=== PATIENT | male | born 1965 | race African-American/Black ===

== ENCOUNTER → 2020-05-27 | Outpatient (CLI) | payer OTHER ==
[~2020-05-27] MED LIST: ACET-168 PO; ALBU17AE3 INH; ALBU8.5H2 IH; ALBU8.5H2 INH; AML5T PO; AMLO-250 PO; AMLO-251 PO; AMLO10TA PO; AMLO10TA82 PO; APIX5TAB PO; ARIP10TA17 PO; ARPZ10T PO; ASP325T PO; ASP81CT PO; ASPI-1238 PO; ATOR10TA66 PO; ATOR20TA66 PO; ATOR40TA70 PO; BENZ1TAB PO; BNZ20T PO; BNZ40T PO; BNZT1T PO; BRIM5DRO12 OU; CARV6.252; CCLB10TRX PO; CETI10TA17 PO; CLON0.5T3; CLON1TAB69 PO; CYCL10TA9 PO; DCCL10CRX PO; DIVA-74 PO; DIVA250T12 PO; DIVA250T2 PO; DIVA250T4 PO; DOXY100C2 PO; DVL250TEC1 PO; DXCC100CRX PO; ESCI20TA PO; ESCI20TA2 PO; ESOM20CA PO; ETD400T PO; ETOD400T PO; FLUT16SP22; FURO20TA4 PO; GABA-488 PO; GABA300C PO; GABA600T2 PO; GBPN300C PO; GFCD10B PO; GLIP5TAB26; HCT25T PO; HYDR-2890 PO; HYDR-34 PO; HYDR-3454 PO; HYDR-3584 PO; HYDR-3720 PO; HYDR-757 PO; HYDR118S10 PO; HYDR1TAB PO; INSU100I14 SC; INSU100I14 SQ; INSU100I29 SQ; INSU100V16 SC; INSU100V5 SC; INSU100V5 SQ; LEVO750T24 PO; LINA5TAB PO; LISI40TA PO; LORA0.5T PO; LORA1TAB PO; MAGN400T6 PO; METF500T4 PO; METH-53 PO; METO100T5 PO; MTP100TCR PO; NEXIUM 20MG PO; NF-ESOM40C PO; POTA10TA36 PO; PRD20T PO; PREG75CA PO; PRV20T PO; RT-ALBUINH INH; SERT50TA9 PO; SLF500T PO; SULF1TAB35 PO; SULF1TAB38 PO; TPR25T PO; TRAM50TA2 PO; TRAZ150T42 PO; TRM50T PO; TRM50TRX; TRZ50T; UNIVASC; WRF10T; [UNRECOGNIZED DRUG - CODE]
--- NOTE | 2020-05-27 11:34 | Diagnostic Imaging Report ---
PROCEDURE: CT abdomen and pelvis without contrast. TECHNIQUE: Multiple contiguous axial images were obtained through the abdomen and pelvis without the use of intravenous contrast. Auto Exposure Controls were utilized during the CT exam to meet ALARA standards for radiation dose reduction. INDICATION: IVC filter placement. COMPARISON: 05/17/2009. FINDINGS: The lung bases are clear. The liver and gallbladder are unremarkable. No biliary ductal dilatation is seen. The pancreas and spleen are unremarkable. No adrenal mass is detected. The kidneys are without calculus or hydronephrosis. The aorta is nonaneurysmal. There is a filter within the inferior vena cava which appears to be appropriately located below the level of the renal veins. The small and large bowel loops are of normal caliber. There is no obstruction. There is no free fluid. The bladder and prostate are unremarkable. No abdominal or pelvic lymphadenopathy is seen. The bony structures are nonacute. IMPRESSION: Unremarkable noncontrast CT of the abdomen and pelvis. The IVC filter appears to be in an appropriate location. Dictated by: Dictated on workstation # [id number]
== END ==
LOC: RAD 11:15
PROVIDERS: ATTEND Chiropractor
DX: Z45.89 Encounter for adjustment and management of other implanted devices (principal)
CPT/HCPCS: 74176

== ENCOUNTER → 2020-12-28 | Outpatient (CLI) | payer MEDICARE, MEDICAID ==
[~2020-12-28] MED LIST changes: -LISI40TA PO; +LISI40TA9 PO; +SERT-413 PO
--- NOTE | 2020-12-28 14:06 | Diagnostic Imaging Report ---
PROCEDURE: US Renal Bilateral. TECHNIQUE: Multiple real-time grayscale images were obtained over the kidneys in various projections bilaterally. INDICATION: Kidney disease. Right kidney measures 10.9 x 5.6 x 4.5 cm and the left kidney measures 10.2 x 6.5 x 6.6 cm. Cortical thickness and echogenicity is normal bilaterally. No calculi are seen. There is no hydronephrosis. Bladder demonstrates bilateral ureteral jets. IMPRESSION: Unremarkable renal ultrasound. Dictated by: Dictated on workstation # [id number]
== END ==
LOC: RAD 13:00
PROVIDERS: ATTEND Nurse Practitioner Family
DX: N28.9 Disorder of kidney and ureter, unspecified (principal)
CPT/HCPCS: 76770

== ENCOUNTER 2021-02-22 05:40 | Outpatient (RCR) | payer MEDICARE, MEDICAID ==
[~2021-02-22] VITALS: Ht 182.9 cm; Wt 172.4 kg
[~2021-02-22 05:40] MED LIST changes: -ARIP10TA17 PO; +ARIP10TA55 PO
[2021-02-22] MEDS ORDERED: TMSL.4C PO (14:15)
[2021-02-22] MEDS ORDERED: DULO40CA2 PO (14:15)
[2021-02-22] MEDS ORDERED: BRIM5DRO2 OP (14:15)
[2021-02-22] MEDS ORDERED: TIOT4MIS5 IH (14:15)
[2021-02-22] MEDS ORDERED: FURO20TA4 PO (14:15)
[2021-02-22] MEDS ORDERED: METF-399 PO (14:15)
[2021-02-22] MEDS ORDERED: INSU200I SQ (14:15)
[2021-02-22] MEDS ORDERED: GABA800T10 PO (14:15)
[2021-02-22] MEDS ORDERED: FLUT1AER IH (14:15)
[2021-02-22] MEDS ORDERED: POTA10TA36 PO (14:15)
[2021-02-22] MEDS ORDERED: ROSU40TA23 PO (14:15)
[2021-02-22] MEDS ORDERED: ASPI-999 PO (14:15)
[2021-02-22] MEDS ORDERED: DULA1.5P2 SQ (14:15)
== END 2021-02-22 16:23 | disposition home or self-care (01) ==
LOC: PREOP 05:40
PROVIDERS: ATTEND Surgery
DX: Z01.818 Encounter for other preprocedural examination (principal)

== ENCOUNTER 2021-02-27 17:17 | Emergency (ER) | payer MEDICARE, MEDICAID ==
[~2021-02-27] VITALS: Ht 182.8 cm; Wt 172.0 kg
[~2021-02-27 17:17] MED LIST changes: +ASPI-999 PO; +BRIM5DRO2 OP; +DULA1.5P2 SQ; +DULO40CA2 PO; +FLUT1AER IH; +GABA800T10 PO; +INSU200I SQ; +METF-399 PO; +ROSU40TA23 PO; +TIOT4MIS5 IH; +TMSL.4C PO
[2021-02-27 17:37] LABS: BASOPHILS % (AUTO) 0 % (0-10); EOSINOPHILS % (AUTO) 0 % (0-10); HEMATOCRIT 31 % (40-54); LYMPHOCYTES # (AUTO) 0.8 10^3/uL (1.0-4.0); LYMPHOCYTES % (AUTO) 12 % (12-44); MEAN CORPUSCULAR HEMOGLOBIN 26 pg (25-34); MEAN CORPUSCULAR HGB CONC 29 g/dL (32-36); MEAN CORPUSCULAR VOLUME 89 fL (80-99); MEAN PLATELET VOLUME 12.1 fL (9.0-12.2); MONOCYTES # (AUTO) 0.7 10^3/uL (0.0-1.0); MONOCYTES % (AUTO) 11 % (0-12); NEUTROPHILS # (AUTO) 5.1 10^3/uL (1.8-7.8); NEUTROPHILS % (AUTO) 76 % (42-75); PLATELET COUNT 232 10^3/uL (130-400); WHITE BLOOD COUNT 6.7 10^3/uL (4.3-11.0)
[2021-02-27 17:47] LABS: ALBUMIN 3.6 GM/DL (3.2-4.5); POTASSIUM 4.8 MMOL/L (3.6-5.0)
[2021-02-27 17:49] LABS: CALCIUM 9.3 MG/DL (8.5-10.1)
[2021-02-27 17:50] LABS: TOTAL PROTEIN 6.9 GM/DL (6.4-8.2)
[2021-02-27 17:52] LABS: BILIRUBIN,TOTAL 0.2 MG/DL (0.1-1.0)
[2021-02-27 17:54] LABS: CREATININE SERUM 1.67 MG/DL (0.60-1.30)
--- NOTE | 2021-02-27 17:58 | ED General ---
General Chief Complaint: Glucose Problems Stated Complaint: HYPOGLYCEMIA Nursing Triage Note: Pt to ED via EMS for low blood sugar. EMS reports pt was given 40 units of humalog this morning and then did not eat lunch. Pt's blood sugar was 65 per EMS. D10 running upon arrival however pt's IV was pulled out transfering pt. EMS reports pt was given 1mg glucagon at 1634. Source of Information: Patient, EMS Exam Limitations: No Limitations History of Present Illness Date Seen by Provider: Feb 27, 2021 Time Seen by Provider: 17:20 Initial Comments To ER by [facility] from [facility] where he resides with hypoglycemia. Upon fire department arrival his blood sugar was in the 30s or 40s and he was lethargic. correction staff gave 1 mg of intramuscular glucagon. Upon EMS arrival his blood sugar was in the 60s. They initiated IV with D10. He does report shortness of breath Timing/Duration: 1-3 Hours Severity: Moderate Associated Systoms: Denies Symptoms Allergies and Home Medications Allergies Coded Allergies: penicillin V (Unverified Allergy, Unknown, 10/01/08) erythromycin base (Unverified Adverse Reaction, Mild, VOMITING, 03/18/13) Home Medications Amlodipine Besylate 10 Mg Tablet, 10 MG PO DAILY Prescribed by: KERA CHAPMAN on 12/21/15 1233 Apixaban 5 Mg Tablet, 5 MG PO BID, (Reported) Aripiprazole 10 Mg Tablet, 10 MG PO DAILY, (Reported) Aspirin 81 Mg Tab.chew, 81 MG PO DAILY, (Reported) Brimonidine Tartrate 5 Ml Drops, 5 ML OP UD, (Reported) Divalproex Sodium 250 Mg Tablet.dr, 250 MG PO TID, (Reported) Dulaglutide 1.5 Mg/0.5 Ml Pen.injctr, 1.5 MG SQ DAILY, (Reported) Duloxetine HCl 40 Mg Capsule.dr, 40 MG PO DAILY, (Reported) Fluticasone/Vilanterol 1 Each Blst.w.dev, 1 EACH IH DAILY, (Reported) Furosemide 20 Mg Tablet, 20 MG PO DAILY, (Reported) Gabapentin 800 Mg Tablet, 800 MG PO BID, (Reported) Insulin Detemir 100 Unit/1 Ml Insuln.pen, 30 UNITS SQ BID, (Reported) Insulin Lispro 200 Unit/1 Ml Insuln.pen, 200 UNIT SQ UD, (Reported) Lisinopril 40 Mg Tablet, 40 MG PO DAILY Prescribed by: KERA CHAPMAN on 12/21/15 1233 Metformin HCl 1,000 Mg Tablet, 1,000 MG PO DAILY, (Reported) Metoprolol Succinate 100 Mg Tab.er.24h, 100 MG PO DAILY, (Reported) Potassium Chloride 10 Meq Tab.er.prt, 10 MEQ PO DAILY, (Reported) Rosuvastatin Calcium 40 Mg Tablet, 40 MG PO DAILY, (Reported) Tamsulosin HCl 0.4 Mg Cap, 0.4 MG PO DAILY, (Reported) Tiotropium [place] 4 Gm Mist.inhal, 2 PUFF IH DAILY, (Reported) Patient Home Medication List Home Medication List Reviewed: Yes Review of Systems Review of Systems Constitutional: see HPI EENTM: see HPI Respiratory: no symptoms reported Cardiovascular: no symptoms reported Genitourinary: no symptoms reported Musculoskeletal: no symptoms reported Skin: no symptoms reported Psychiatric/Neurological: No Symptoms Reported Hematologic/Lymphatic: No Symptoms Reported Immunological/Allergic: no symptoms reported Past Sqhqvuj-Vrqgyp-Sbjdtt Hx Seasonal Allergies Seasonal Allergies: No Past Medical History Surgeries: Yes Cardiac, Dialysis, Orthopedic, Renal, Vascular Surgery Respiratory: Yes (COMMUNITY ACQUIRED PNEUMONIA) Asthma, Pneumonia Currently Using CPAP: No Currently Using BIPAP: No Cardiac: Yes (PAD) Coronary Artery Disease, Deep Vein Thrombosis, Heart Attack, High Cholesterol, Hypertension, Irregular Heartbeat, Peripheral Vascular Neurological: Yes (BRAIN INJURY CAUSES EMOTIONS TO CHANGE . LEFT SIDE WEAKNESS) Concussion, Headaches /Migraines, Neuropathy, Seizure Disorder, Stroke Reproductive Disorders: No Sexually Transmitted Disease: No HIV/AIDS: No Kidney Stones, Renal Failure Gastrointestinal: Yes Colitis, Gastroesophageal Reflux, Diverticulosis, Polyps, Hiatal Hernia Musculoskeletal: Yes (WEAKNESS IN LEGS FROM STROKE ) Arthritis, Fibromyalgia, Rheumatoid Arthritis, Chronic Back Pain Endocrine: Yes Diabetes, Insulin dep Glaucoma Loss of Vision: Bilateral Hearing Impairment: Denies Cancer: No Psychosocial: Yes Sleep Difficulties, Bipolar, Depression Integumentary: No Blood Disorders: Yes (ANEMIA, BLOOD CLOTS ) Family Medical History Cardiovascular disease 19 MOTHER G8 BROTHER Colon cancer 19 MOTHER Completed stroke 19 FATHER Dementia 19 FATHER Diabetes mellitus 19 MOTHER FHx: macular degeneration 19 FATHER Myocardial infarction 19 MOTHER Heart Disease, Diabetes, Hypertension Physical Exam Vital Signs Vital Signs - First Documented 02/27/21 17:18 Temp 35.8 Pulse 58 Resp 18 B/P (MAP) 123/83 (96) Pulse Ox 98 O2 Delivery Room Air Capillary Refill : Less Than 3 Seconds Height, Weight, BMI Height: 6'2" Weight: 250lbs. 0.0oz. 113.015025fw; 51.00 BMI Method:Estimated General Appearance: No Apparent Distress, WD/WN, Obese Eyes: Bilateral Eye Normal Inspection, Bilateral Eye PERRL, Bilateral Eye EOMI Neck: Full Range of Motion, Normal Inspection Respiratory: No Accessory Muscle Use, No Respiratory Distress Cardiovascular: Regular Rate, Rhythm, Normal Peripheral Pulses Gastrointestinal: Non Tender, Soft Extremity: Normal Capillary Refill, Normal Inspection Neurologic/Psychiatric: Alert, Oriented x3 Skin: Normal Color, Warm/Dry Progress/Results/Core Measures Suspected Sepsis SIRS Temperature: Pulse: 58 Respiratory Rate: 18 Laboratory Tests 02/27/21 17:25: White Blood Count 6.7 Blood Pressure 123 /83 Mean: 96 Laboratory Tests 02/27/21 17:25: Creatinine 1.67H, Platelet Count 232, Total Bilirubin 0.2 Results/Orders Lab Results Laboratory Tests Test 02/27/21 17:22 02/27/21 17:25 02/27/21 18:38 Range/Units Glucometer 78 106 70-110 MG/DL White Blood Count 6.7 4.3-11.0 10^3/uL Red Blood Count 3.49 L 4.30-5.52 10^6/uL Hemoglobin 9.0 L 13.3-17.7 g/dL Hematocrit 31 L 40-54 % Mean Corpuscular Volume 89 80-99 fL Mean Corpuscular Hemoglobin 26 25-34 pg Mean Corpuscular Hemoglobin Concent 29 L 32-36 g/dL Red Cell Distribution Width 17.1 H 10.0-14.5 % Platelet Count 232 130-400 10^3/uL Mean Platelet Volume 12.1 9.0-12.2 fL Immature Granulocyte % (Auto) 1 % Neutrophils (%) (Auto) 76 H 42-75 % Lymphocytes (%) (Auto) 12 12-44 % Monocytes (%) (Auto) 11 0-12 % Eosinophils (%) (Auto) 0 0-10 % Basophils (%) (Auto) 0 0-10 % Neutrophils # (Auto) 5.1 1.8-7.8 10^3/uL Lymphocytes # (Auto) 0.8 L 1.0-4.0 10^3/uL Monocytes # (Auto) 0.7 0.0-1.0 10^3/uL Eosinophils # (Auto) 0.0 0.0-0.3 10^3/uL Basophils # (Auto) 0.0 0.0-0.1 10^3/uL Immature Granulocyte # (Auto) 0.1 0.0-0.1 10^3/uL Sodium Level 143 135-145 MMOL/L Potassium Level 4.8 3.6-5.0 MMOL/L Chloride Level 113 H 98-107 MMOL/L Carbon Dioxide Level 18 L 21-32 MMOL/L Anion Gap 12 5-14 MMOL/L Blood Urea Nitrogen 23 H 7-18 MG/DL Creatinine 1.67 H 0.60-1.30 MG/DL Estimat Glomerular Filtration Rate 52 BUN/Creatinine Ratio 14 Glucose Level 81 70-105 MG/DL Calcium Level 9.3 8.5-10.1 MG/DL Corrected Calcium 9.6 8.5-10.1 MG/DL Total Bilirubin 0.2 0.1-1.0 MG/DL Aspartate Amino Transf (AST/SGOT) 13 5-34 U/L Alanine Aminotransferase (ALT/SGPT) 13 0-55 U/L Alkaline Phosphatase 43 40-136 U/L B-Type Natriuretic Peptide 274.9 H <100.0 PG/ML Total Protein 6.9 6.4-8.2 GM/DL Albumin 3.6 3.2-4.5 GM/DL SARS-CoV-2 RNA (RT-PCR) Not Detected Not Detecte My Orders Orders - MIO KERN PRESSURE SUPERVISOR Cbc With Automated Diff (02/27/21 17:25) Comprehensive Metabolic Panel (02/27/21 17:25) Ua Culture If Indicated (02/27/21 17:25) Chest 1 View, Ap/Pa Only (02/27/21 17:25) Covid 19 Inhouse Test (02/27/21 17:25) BNP (02/27/21 17:25) Ed Iv/Invasive Line Start (02/27/21 17:25) Cho 75g/M 0snack (21-2400 Shivam) (02/27/21 Dinner) Accucheck Stat ONCE (02/27/21 18:32) Furosemide Injection (Lasix Injection) (02/27/21 18:45) Medications Given in ED Current Medications Medications Dose Ordered Sig/Shelbi Route Start Time Stop Time Status Last Admin Dose Admin Furosemide 40 mg ONCE ONCE IVP 02/27/21 18:45 02/27/21 18:46 DC 02/27/21 19:20 40 MG Vital Signs/I&O 02/27/21 17:18 Temp 35.8 Pulse 58 Resp 18 B/P (MAP) 123/83 (96) Pulse Ox 98 O2 Delivery Room Air Capillary Refill : Less Than 3 Seconds Blood Pressure Mean: 96 Diagnostic Imaging Diagonstic Imaging: Xray Comments NAME: [facility]A [facility] REC#: [id number] PT STATUS: REG ER : 12/14/2000 PHYSICIAN: MIO KERN APRN ADMIT DATE: 02/27/21/ER Draft Date of Exam:02/27/21 KNEE, RIGHT, 3 VIEWS INDICATION: Knee pain. EXAMINATION: Right knee at 4:48 p.m. Three views were obtained. COMPARISON: There is no prior study available for comparison. There is a well-circumscribed lucency extending through the superolateral aspect of the patella. I suspect that this is a developmental variant, the so-called bipartite patella and not a fracture. However if the patient has point tenderness in this area, then either CT or preferably MRI would be recommended for further evaluation. No other fracture or acute bony abnormality is noted. The knee joint is well maintained. The soft tissues are generally unremarkable. There may be a small joint effusion present. IMPRESSION: 1. 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 Recommendations as above. 2. There is no acute bony abnormality noted otherwise. Dictated on workstation # [id number] Dict: 02/27/21 1650 Trans: 02/27/21 1725 [facility] [id number] Interpreted by: PAULIE MARTIN MD Electronically signed by: Departure Impression Primary Impression: Leukemia, acute Disposition: ADMITTED INPATIENT Condition: Stable Departure-Patient Inst. Decision time for Depature: 19:48 Referrals: RACHEL LONGORIA DO (PCP/Family) Primary Care Physician Patient Instructions: NO INSTRUCTIONS GIVEN MIO KERN APRN Feb 27, 2021 17:58
--- NOTE | 2021-02-27 18:14 | Diagnostic Imaging Report ---
HISTORY: Shortness of air. COMPARISON: 12/22/2015. TECHNIQUE: Frontal view of the chest. FINDINGS: Lung volumes are low. There is cardiomegaly with central vascular congestion and interstitial edema. There is no pleural effusion or pneumothorax. There appears to be airspace opacity at the apices bilaterally. IMPRESSION: 1. Cardiomegaly with diffuse interstitial edema, may be accentuated by the low lung volumes. 2. Biapical airspace opacities, may be due to artifact from overlapping structures. If the patient is able, consider follow up two view of the chest with a lordotic frontal view. Dictated by: Dictated on workstation # [id number]
[2021-02-27] MEDS ORDERED: FUROSEMIDE 40 MG/4 ML INJ (LASIX) IVP ONE (18:45)
[2021-02-27 19:54] LABS: BILIRUBIN,URINE NEGATIVE (NEGATIVE); CLARITY,URINE CLEAR; COLOR,URINE YELLOW; GLUCOSE, URINE (UA) NEGATIVE (NEGATIVE); KETONES,URINE NEGATIVE (NEGATIVE); LEUKOCYTE ESTERASE ,URINE NEGATIVE (NEGATIVE); NITRITE,URINE NEGATIVE (NEGATIVE); PH,URINE 5.5 (5-9); PROTEIN,URINE 2+ (NEGATIVE)
[2021-02-27 20:17] LABS: BACTERIA,URINE TRACE /HPF; WBC,URINE 0-2 /HPF
[2021-02-27 20:18] LABS: AMORPHOUS SEDIMENT,UR MOD AMOR URATES /LPF
[2021-02-27 20:33] VITALS: BP 177/97
== END 2021-02-27 20:30 | disposition other institution (70) ==
LOC: EDUNIT# 17:17 → ER 17:18
DX: C95.00 Acute leukemia of unspecified cell type not having achieved remission (principal); I51.7 Cardiomegaly; J81.1 Chronic pulmonary edema; R91.8 Other nonspecific abnormal finding of lung field
CPT/HCPCS: 36415; 71045; 80053; 81000; 82947; 83880; 85025; 87636; 96374

== ENCOUNTER 2021-03-02 06:52 | Day surgery (SDC) | payer MEDICARE, MEDICAID ==
--- NOTE | 2021-03-01 08:23 | Progress Note-Pre Operative ---
Pre-Operative Progress Note H&P Reviewed The H&P was reviewed, patient examined and no changes noted. Time Seen by Provider: 08:10 Date H&P Reviewed: Mar 01, 2021 Time H&P Reviewed: 08:10 Pre-Operative Diagnosis: rectal bleed, anemia LARISA COE DO Mar 01, 2021 08:23
[2021-03-02] VITALS (8 sets, daily range): BP systolic 111–162; BP diastolic 59–79
[~2021-03-02] VITALS: Ht 182.9 cm; Wt 172.0 kg
[~2021-03-02 06:52] MED LIST changes: +HURRICAINE EXT TUBE (BENZOCAINE) XX PRN; +LACTATED RINGERS 1,000 ML IV STA
[2021-03-02] MEDS ORDERED: LACTATED RINGERS 1,000 ML IV ONE (07:11)
[2021-03-02] MEDS ORDERED: PROPOFOL INJECTION 50 ML IV ONE (07:49)
[2021-03-02] MEDS ORDERED: KETAMINE SYRINGE 50 MG/5 ML SYRINGE ONE (08:12)
[2021-03-02] MEDS ORDERED: MIDAZOLAM 2 MG/2 ML (VERSED) VIAL ONE (08:12)
--- NOTE | 2021-03-02 10:39 | Progress Note-Post Operative ---
Post-Operative Progess Note Surgeon (s)/Personal Coach (s) Surgeon LARISA COE DO Personal Coach: none Pre-Operative Diagnosis rectal bleed, anemia Post-Operative Diagnosis Gastritis Hiatal Hernia Esophagitis Inflammatory Gastric Polyp Polyps diverticula internal hemorrhoids Procedure & Operative Findings Date of Procedure 03/02/21 Procedure Performed/Findings 1) EGD with bx 2) EGD with Snare polypectomy with cautery 3) Colonoscopy with snare polypectomy PROCEDURE NOTE: After informed consent was obtained, the patient was brought to the endoscopy suite, placed in bed in left lateral decubitus position. He was administered IV sedation by the BLADDER CHANGER who then monitored vitals the entire time, heart rate, blood pressure and pulse ox and the scope was inserted down the mouth through the esophagus into the stomach. On the way down, noted some mild esophagitis, took a picture, pushed into the stomach, pushed past the antrum into the duodenum. Duodenum looked mildly inflamed. Pulled back and did a biopsy of antrum, then retroflexed the scope, saw a small hiatal hernia and multiple large gastric polyps. Took a picture of Hiatal hernia and polyps an then pulled the scope into the GE junction, took another picture of the esophagitis and then did a biopsy of the GE junction. Pushed the scope back into the stomach and did a snare polypectomy to remove one large polyp for pathology. It was so big I had to place a Olivo net down, grab the polyp and then remove scope and polyp. I then placed scope back down and into stomach in order to suction all the air out of the stomach. At this point pulled the scope up the esophagus and out the mouth. Switched camera, switched gloves, went down below, started the colonoscopy. Pushed all the way into about 160 cm to get all the way to cecum, took a picture of the appendiceal orifice, noted the ileocecal valve and then slowly withdrew the scope, insufflating to look circumferentially at the montoya starting in the cecum and up the ascending colon. Found a polyp in the ascending colon and did a snare polypectomy; it was large and would not suction up the scope. I grabbed it with scope and continued up to the hepatic flexure and into the transverse colon where I saw two more large polyps. I then removed both of these with snare and then grabbed all three polyps with the Olivo net. I continued slowly out to splenic flexure, into the descending colon (where I saw another small polyp - elected to leave and will be back in a year to do repeat colonoscopy), down into the sigmoid and finally into the rectum and in the rectal vault, saw some minimal internal hemorrhoids. He had a lot of liquid fecal material and unable to suction all of it out; again another reason to repeat colonoscopy in a year. The patient tolerated the procedure and he recovered in the endoscopy suite. Anesthesia Type IV sedation by Anesthesia Estimated Blood Loss Estimated blood loss (mL): scant Specimens/Packing Specimens Removed antral bx GE jxn bx Gastric polyp Asc colon polyp transverse colon polyp LARISA COE DO Mar 02, 2021 10:39
--- NOTE | 2021-03-02 10:41 | Endoscopy Discharge Instruct ---
Endo Procedure/Findings Findings 1.: Hiatal Hernia, Gastritis 2.: Other Findings (Gastric Polyp and Esophagitis) 3.: Polyp 4.: Diverticulosis, Internal Hemorrhoids Discharge Instructions - Activity: You might feel a little sleepy until tomorrow. This is due to the medicine you received to relax you. Until tomorrow, you should: NOT drive a car, operate machinery or power tools. NOT drink any alcoholic beverages. NOT make any important decisions or sign importortant papers. Do not return to work until tomorrow, unless otherwise instructed. Resume previous activities tomorrow. Diet: Start by taking liquids. If you tolerate liquids, advance to solid food. 1.: EGD in 3 years 2.: Colonoscopy in 1 year Notify Physician - If you experience excessive bleeding, unusual abdominal pain, fever, or chest pain, contact your doctor immediately. LARISA COE DO Mar 02, 2021 10:41
--- NOTE | 2021-03-02 10:59 | Anesthesia-General Post-Op ---
MAC Patient Condition Mental Status/LOC: Same as Preop Cardiovascular: Satisfactory Nausea/Vomiting: Absent Respiratory: Satisfactory Pain: Controlled Complications: Absent Post Op Complications Complications None Follow Up Care/Instructions Patient Instructions None needed. Anesthesiology Discharge Order Discharge Order Patient is doing well, no complaints, stable vital signs, no apparent adverse anesthesia problems. YONG THAYER DO Mar 02, 2021 10:59
== END 2021-03-02 12:30 ==
LOC: ENDO 06:52
PROVIDERS: ATTEND Surgery
DX: K29.50 Unspecified chronic gastritis without bleeding (principal); D12.2 Benign neoplasm of ascending colon; D12.3 Benign neoplasm of transverse colon; K62.5 Hemorrhage of anus and rectum; K31.7 Polyp of stomach and duodenum; K44.9 Diaphragmatic hernia without obstruction or gangrene; K20.90 Esophagitis, unspecified without bleeding; K57.30 Diverticulosis of large intestine without perforation or abscess without bleeding; K64.8 Other hemorrhoids; E78.00 Pure hypercholesterolemia, unspecified; I11.0 Hypertensive heart disease with heart failure; I50.9 Heart failure, unspecified; D50.9 Iron deficiency anemia, unspecified; I25.2 Old myocardial infarction; I25.10 Atherosclerotic heart disease of native coronary artery without angina pectoris; M79.7 Fibromyalgia; M10.9 Gout, unspecified; J45.909 Unspecified asthma, uncomplicated; E11.40 Type 2 diabetes mellitus with diabetic neuropathy, unspecified; E66.01 Morbid (severe) obesity due to excess calories; F17.210 Nicotine dependence, cigarettes, uncomplicated; F31.9 Bipolar disorder, unspecified; Z79.82 Long term (current) use of aspirin; Z68.43 Body mass index [BMI] 50.0-59.9, adult; Z79.4 Long term (current) use of insulin

== ENCOUNTER → 2021-03-17 | Outpatient (CLI) | payer MEDICARE, MEDICAID ==
[~2021-03-17] MED LIST changes: -HURRICAINE EXT TUBE (BENZOCAINE) XX PRN; -LACTATED RINGERS 1,000 ML IV STA
== END ==
LOC: CARD 08:57
PROVIDERS: ATTEND Nurse Practitioner Family
DX: I11.9 Hypertensive heart disease without heart failure (principal)
CPT/HCPCS: 93306

== ENCOUNTER → 2021-05-17 | Outpatient (CLI) | payer MEDICARE, MEDICAID ==
[2021-05-17 15:55] LABS: ABSOLUTE RETIC # 57 10e9/uL (24-90); BASOPHILS % (AUTO) 1 % (0-10); EOSINOPHILS # (AUTO) 0.1 10^3/uL (0.0-0.3); EOSINOPHILS % (AUTO) 2 % (0-10); HEMATOCRIT 29 % (40-54); HEMOGLOBIN 8.3 g/dL (13.3-17.7); LYMPHOCYTES # (AUTO) 1.1 10^3/uL (1.0-4.0); LYMPHOCYTES % (AUTO) 17 % (12-44); MEAN CORPUSCULAR HEMOGLOBIN 24 pg (25-34); MEAN CORPUSCULAR HGB CONC 29 g/dL (32-36); MEAN CORPUSCULAR VOLUME 84 fL (80-99); MEAN PLATELET VOLUME 12.8 fL (9.0-12.2); MONOCYTES # (AUTO) 0.8 10^3/uL (0.0-1.0); MONOCYTES % (AUTO) 12 % (0-12); NEUTROPHILS # (AUTO) 4.3 10^3/uL (1.8-7.8); NEUTROPHILS % (AUTO) 68 % (42-75); PLATELET COUNT 205 10^3/uL (130-400); RETICULOCYTE % 1.63 % (0.50-2.40); WHITE BLOOD COUNT 6.4 10^3/uL (4.3-11.0)
[2021-05-17 16:34] LABS: EOSINOPHILS % (MANUAL) 3 %; LYMPHOCYTES % (MANUAL) 25 %; MONOCYTES % (MANUAL) 10 %; NEUTROPHILS % (MANUAL) 62 %
[2021-05-17 16:35] LABS: ACANTHOCYTES SLIGHT; BURR CELLS MODERATE
== END ==
LOC: LABNPT 15:45
PROVIDERS: ATTEND Internal Medicine
DX: Z01.89 Encounter for other specified special examinations (principal)
CPT/HCPCS: 85007; 85027; 85045; 85055

== ENCOUNTER 2021-09-16 19:25 | Inpatient (IN) | payer MEDICARE, MEDICAID ==
[~2021-09-16] VITALS: Ht 187 cm; Wt 169.5 kg
[~2021-09-16 19:25] MED LIST changes: -BRIM5DRO2 OP; +BRIM5DRO2 OU; +POTA10TA37 PO
[2021-09-16 19:43] LABS: ABG BASE EXCESS -0.8 MMOL/L (-2.5-2.5); ABG OXYGEN SATURATION 96 % (94-100); ABG PCO2 50 MMHG (35-45); ABG PO2 79 MMHG (79-93); ABG TCO2 26.7 MMOL/L (21.0-31.0)
[2021-09-16 19:44] LABS: ABG PH 7.31 (7.37-7.43); ALLENS TEST POS
--- NOTE | 2021-09-16 19:44 | ED Respiratory ---
General Stated Complaint: AMS Source: patient, EMS Exam Limitations: no limitations History of Present Illness Date Seen by Provider: Sep 16, 2021 Time Seen by Provider: 19:23 Initial Comments Patient presents ER by EMS from [facility] with chief complaint of shortness of air and decreased mental status starting today. No fevers or chills productive cough. He does not use oxygen at baseline but has a history of COPD. They gave him a breathing treatment today by EMS on route which he states not seem to help much. Patient has not had a breathing treatment the past couple days he just has them as needed. He denies having any pain. He did lose control of his bowels. No syncope or falls. He did get an iron infusion for anemia today. He says for the past couple days been having diarrhea. No cough or sore throat. EMS remarks that a did not hear any wheezing just mostly upper respiratory sounds. Apparently staff told EMS the blood sugar was 30 prior to dinner tonight so they gave him some orange juice and got his blood sugar up over 300. He is a type II diabetic on insulin. Patient is on Eliquis. Allergies and Home Medications Allergies Coded Allergies: penicillin V (Unverified Allergy, Unknown, 10/01/08) erythromycin base (Unverified Adverse Reaction, Mild, VOMITING, 03/18/13) Patient Home Medication List Home Medication List Reviewed: Yes Amlodipine Besylate (Amlodipine Besylate) 10 Mg Tablet, 10 MG PO DAILY Prescribed by: KERA CHAPMAN on 12/21/15 1233 Apixaban (Eliquis) 5 Mg Tablet, 5 MG PO BID, (Reported) Entered as Reported by: JIM GRADY on 12/03/15 1005 Aripiprazole (Aripiprazole) 10 Mg Tablet, 10 MG PO DAILY, (Reported) Entered as Reported by: JIM GRDAY on 12/03/15 1005 Aspirin (Aspirin) 81 Mg Tab.chew, 81 MG PO DAILY, (Reported) Entered as Reported by: KERA FELIPE on 02/22/21 1415 Brimonidine Tartrate (Alphagan P) 5 Ml Drops, 5 ML OP UD, (Reported) Entered as Reported by: KERA FELIPE on 02/22/21 1415 Divalproex Sodium (Divalproex Sodium) 250 Mg Tablet.dr, 250 MG PO TID, (Reported) Entered as Reported by: JIM GRADY on 12/03/15 100 Dulaglutide (Trulicity) 1.5 Mg/0.5 Ml Pen.injctr, 1.5 MG SQ DAILY, (Reported) Entered as Reported by: KERA FELIPE on 02/22/21 141 Duloxetine HCl (Duloxetine HCl) 40 Mg Capsule.dr, 40 MG PO DAILY, (Reported) Entered as Reported by: KERA FELIPE on 02/22/21 141 Fluticasone/Vilanterol (Breo Ellipta 100-25 Mcg INH) 1 Each Blst.w.dev, 1 EACH IH DAILY, (Reported) Entered as Reported by: KERA FELIPE on 02/22/211414 Furosemide (Furosemide) 20 Mg Tablet, 20 MG PO DAILY, (Reported) Entered as Reported by: KERA FELIPE on 02/22/21 141 Gabapentin (Gabapentin) 800 Mg Tablet, 800 MG PO BID, (Reported) Entered as Reported by: KERA FELIPE on 02/22/211414 Insulin Detemir (Levemir Flextouch) 100 Unit/1 Ml Insuln.pen, 30 UNITS SQ BID, (Reported) Entered as Reported by: JIM GRADY on 12/03/15 100 Insulin Lispro (Humalog Kwikpen) 200 Unit/1 Ml Insuln.pen, 200 UNIT SQ UD, (Reported) Entered as Reported by: KERA FELIPE on 02/22/21 141 Lisinopril (Lisinopril) 40 Mg Tablet, 40 MG PO DAILY Prescribed by: KERA CHAPMAN on 12/21/15 1233 Metformin HCl (Metformin HCl) 1,000 Mg Tablet, 1,000 MG PO DAILY, (Reported) Entered as Reported by: KERA FELIPE on 02/22/21 141 Metoprolol Succinate (Metoprolol Succinate) 100 Mg Tab.er.24h, 100 MG PO DAILY, (Reported) Entered as Reported by: JIM GRADY on 12/03/15 100 Potassium Chloride (Potassium Chloride) 10 Meq Tab.er.prt, 10 MEQ PO DAILY, (Reported) Entered as Reported by: KERA FELIPE on 02/22/21 141 Rosuvastatin Calcium (Rosuvastatin Calcium) 40 Mg Tablet, 40 MG PO DAILY, (Reported) Entered as Reported by: KERA FELIPE on 02/22/211414 Tamsulosin HCl (Flomax) 0.4 Mg Cap, 0.4 MG PO DAILY, (Reported) Entered as Reported by: KERA FELIPE on 02/22/211414 Tiotropium [place] (Spiriva Respimat 1.25MCG/ACTUATION) 4 Gm Mist.inhal, 2 PUFF IH DAILY, (Reported) Entered as Reported by: KERA FELIPE on 02/22/211414 Review of Systems Review of Systems Constitutional: No chills, No diaphoresis, No fever; malaise, weakness EENTM: No ear discharge, No ear pain Respiratory: No cough; short of breath, wheezing Cardiovascular: No chest pain, No palpitations Gastrointestinal: No abdominal pain, No nausea, No vomiting Genitourinary: No discharge, No dysuria Musculoskeletal: No back pain, No joint pain All Other Systems Reviewed Negative Unless Noted: Yes Past Nuyqldn-Scfclv-Frpeqx Hx Patient Social History Tobacco Use?: No Use of E-Cig and/or Vaping dev: No Substance use?: No Seasonal Allergies Seasonal Allergies: No Past Medical History Surgeries: Yes Cardiac, Dialysis, Orthopedic, Renal, Vascular Surgery Respiratory: Yes (COMMUNITY ACQUIRED PNEUMONIA) Asthma, Pneumonia Currently Using CPAP: No Currently Using BIPAP: No Cardiac: Yes (PAD) Coronary Artery Disease, Deep Vein Thrombosis, Heart Attack, High Cholesterol, Hypertension, Irregular Heartbeat, Peripheral Vascular Neurological: Yes (BRAIN INJURY CAUSES EMOTIONS TO CHANGE . LEFT SIDE WEAKNESS) Concussion, Headaches /Migraines, Neuropathy, Seizure Disorder, Stroke Reproductive Disorders: No Sexually Transmitted Disease: No HIV/AIDS: No Kidney Stones, Renal Failure Gastrointestinal: Yes Colitis, Gastroesophageal Reflux, Diverticulosis, Polyps, Hiatal Hernia Musculoskeletal: Yes (WEAKNESS IN LEGS FROM STROKE ) Arthritis, Fibromyalgia, Rheumatoid Arthritis, Chronic Back Pain Endocrine: Yes Diabetes, Insulin dep Glaucoma Loss of Vision: Bilateral Hearing Impairment: Denies Cancer: No Psychosocial: Yes Sleep Difficulties, Bipolar, Depression Integumentary: No Blood Disorders: Yes (ANEMIA, BLOOD CLOTS ) Family Medical History Cardiovascular disease 19 MOTHER G8 BROTHER Colon cancer 19 MOTHER Completed stroke 19 FATHER Dementia 19 FATHER Diabetes mellitus 19 MOTHER FHx: macular degeneration 19 FATHER Myocardial infarction 19 MOTHER Heart Disease, Diabetes, Hypertension Physical Exam Vital Signs - First Documented 09/16/21 09/16/21 19:27 20:41 Pulse 65 Resp 24 Pulse Ox 99 O2 Delivery Nasal Cannula O2 Flow Rate 5.00 Capillary Refill : Height: 6'2" Weight: 250lbs. 0.0oz. 113.334943cr; 51.41 BMI Method:Estimated General Appearance: moderate distress, obese Eyes: Bilateral Eye Normal Inspection, Bilateral Eye PERRL, Bilateral Eye EOMI HEENT: PERRL/EOMI, normal ENT inspection, TMs normal, pharynx normal Neck: full range of motion, supple, normal inspection Respiratory: respiratory distress (80% on room air. 100% on 4 L by nasal cannula), accessory muscle use, rhonchi, wheezing Cardiovascular: normal peripheral pulses, regular rate, rhythm Gastrointestinal: normal bowel sounds, non tender Neurologic/Psychiatric: alert, normal mood/affect, oriented x 3, other (GCS 14, slightly obtunded. Slow to answer, 2-3 word answers.) Skin: normal color, warm/dry Focused Exam Lactate Level 09/16/21 20:00: Lactic Acid Level 2.05*H Lactic Acid Level Laboratory Tests Test 09/16/21 20:00 Lactic Acid Level 2.05 MMOL/L (0.50-2.00) *H Progress/Results/Core Measures Suspected Sepsis SIRS Temperature: Pulse: Respiratory Rate: Laboratory Tests 09/16/21 20:00: White Blood Count 5.0 Blood Pressure / Mean: 09/16/21 20:00: Lactic Acid Level 2.05*H Laboratory Tests 09/16/21 20:00: Creatinine 3.05H, INR Comment 1.3, Platelet Count 177, Total Bilirubin 0.3 Results/Orders Lab Results Laboratory Tests Test 09/16/21 19:30 09/16/21 19:32 09/16/21 19:45 09/16/21 20:00 Range/Units Blood Gas Puncture Site [facility] RAD Blood Gas Patient Temperature 35.6 Arterial Blood pH 7.31 *L 7.37-7.43 Arterial Blood Partial Pressure CO2 50 H 35-45 MMHG Arterial Blood Partial Pressure O2 79 79-93 MMHG Arterial Blood HCO3 25 23-27 MMOL/L Arterial Blood Total CO2 26.7 21.0-31.0 MMOL/L Arterial Blood Oxygen Saturation 96 94-100 % Arterial Blood Base Excess -0.8 -2.5-2.5 MMOL/L Martin Test POS Blood Gas Ventilator Setting NO Blood Gas Inspired Oxygen 5L Glucometer 247 H 70-110 MG/DL Influenza Type A (RT-PCR) Detected H Not Detecte Influenza Type B (RT-PCR) Not Detected Not Detecte SARS-CoV-2 RNA (RT-PCR) Not Detected Not Detecte White Blood Count 5.0 4.3-11.0 10^3/uL Red Blood Count 4.19 L 4.30-5.52 10^6/uL Hemoglobin 10.8 L 13.3-17.7 g/dL Hematocrit 37 L 40-54 % Mean Corpuscular Volume 88 80-99 fL Mean Corpuscular Hemoglobin 26 25-34 pg Mean Corpuscular Hemoglobin Concent 29 L 32-36 g/dL Red Cell Distribution Width 20.1 H 10.0-14.5 % Platelet Count 177 130-400 10^3/uL Mean Platelet Volume 12.2 9.0-12.2 fL Immature Granulocyte % (Auto) 0 % Neutrophils (%) (Auto) 63 42-75 % Lymphocytes (%) (Auto) 15 12-44 % Monocytes (%) (Auto) 21 H 0-12 % Eosinophils (%) (Auto) 0 0-10 % Basophils (%) (Auto) 1 0-10 % Neutrophils # (Auto) 3.1 1.8-7.8 10^3/uL Lymphocytes # (Auto) 0.8 L 1.0-4.0 10^3/uL Monocytes # (Auto) 1.0 0.0-1.0 10^3/uL Eosinophils # (Auto) 0.0 0.0-0.3 10^3/uL Basophils # (Auto) 0.0 0.0-0.1 10^3/uL Immature Granulocyte # (Auto) 0.0 0.0-0.1 10^3/uL Neutrophils % (Manual) 65 % Lymphocytes % (Manual) 16 % Monocytes % (Manual) 19 % Percent Immature Platelet Fraction 7.6 0.0-7.6 % Blood Morphology Comment NORMAL Prothrombin Time 16.7 H 12.2-14.7 SEC INR Comment 1.3 0.8-1.4 Activated Partial Thromboplast Time 26 24-35 SEC D-Dimer 0.80 H 0.00-0.49 UG/ML Sodium Level 140 135-145 MMOL/L Potassium Level 5.2 H 3.6-5.0 MMOL/L Chloride Level 102 98-107 MMOL/L Carbon Dioxide Level 22 21-32 MMOL/L Anion Gap 16 H 5-14 MMOL/L Blood Urea Nitrogen 50 H 7-18 MG/DL Creatinine 3.05 H 0.60-1.30 MG/DL Estimat Glomerular Filtration Rate 23 BUN/Creatinine Ratio 16 Glucose Level 227 H 70-105 MG/DL Lactic Acid Level 2.05 *H 0.50-2.00 MMOL/L Calcium Level 8.9 8.5-10.1 MG/DL Corrected Calcium 9.3 8.5-10.1 MG/DL Magnesium Level 2.0 1.6-2.4 MG/DL Total Bilirubin 0.3 0.1-1.0 MG/DL Aspartate Amino Transf (AST/SGOT) 49 H 5-34 U/L Alanine Aminotransferase (ALT/SGPT) 10 0-55 U/L Alkaline Phosphatase 55 40-136 U/L C-Reactive Protein High Sensitivity 6.16 H 0.00-0.50 MG/DL B-Type Natriuretic Peptide 83.1 <100.0 PG/ML Total Protein 7.6 6.4-8.2 GM/DL Albumin 3.5 3.2-4.5 GM/DL Test 09/16/21 20:15 Range/Units Urine Color YELLOW Urine Clarity SL CLOUDY Urine pH 6.0 5-9 Urine Specific [place] 1.025 H 1.016-1.022 Urine Protein 3+ H NEGATIVE Urine Glucose (UA) NEGATIVE NEGATIVE Urine Ketones NEGATIVE NEGATIVE Urine Nitrite NEGATIVE NEGATIVE Urine Bilirubin NEGATIVE NEGATIVE Urine Urobilinogen 0.2 < = 1.0 MG/DL Urine Leukocyte Esterase NEGATIVE NEGATIVE Urine RBC (Auto) 3+ H NEGATIVE Urine RBC 2-5 H /HPF Urine WBC 0-2 /HPF Urine Crystals PRESENT H /LPF Urine Amorphous Sediment MOD PEREZ URATES H /LPF Urine Bacteria TRACE /HPF Urine Casts PRESENT /LPF Urine Granular Casts 2-5 H /LPF Urine Mucus NEGATIVE /LPF Urine Culture Indicated CULTURE PENDING My Orders Orders - GARRETT BENITES Arterial Blood Gas (09/16/21 19:36) Covid 19 Inhouse Test (09/16/21 19:36) Influenza A And B By Pcr (09/16/21 19:36) Cbc With Automated Diff (09/16/21 19:36) Comprehensive Metabolic Panel (09/16/21 19:36) Hs C Reactive Protein (09/16/21 19:36) Procalcitonin (Pct) (09/16/21 19:36) Fibrin Degradation Products (09/16/21 19:36) Blood Culture (09/16/21:36) Lactic Acid Analyzer (09/16/21:36) Protime With Inr (09/16/21:36) Magnesium (09/16/21:36) Sputum Culture (09/16/21:36) Urinalysis (09/16/21:36) Urine Culture (09/16/21:36) Partial Thromboplastin Time (09/16/21:36) Chest 1 View, Ap/Pa Only (09/16/21:36) Ed Iv/Invasive Line Start (09/16/21 19:36) Ed Iv/Invasive Line Start (09/16/21:36) Vital Signs Adult Sepsis Patie Q15M (09/16/21 19:36) O2 (09/16/21 19:36) Remove Rings In Anticipation O (09/16/21:36) Cefepime Injection (Maxipime Injection) (09/16/21 19:45) Vancomycin Injection (Vancomycin Injecti (09/16/21 19:45) Bnp [place] (09/16/21 19:36) Continuous Ekg Monitoring (09/16/21 20:08) Ekg Tracing (09/16/21 20:08) Troponin I Nila (09/16/21 20:08) Methylprednisolone Sod Succ (Solu-Medrol (09/16/21 20:15) Manual Differential (09/16/21 20:00) Lactated Ringers (Lr 1000 Ml Iv Solution (09/16/21 21:15) Lactated Ringers (Lr 1000 Ml Iv Solution (09/16/21 21:15) Loperamide Tablet (Imodium Tablet) (09/16/21 21:15) Oseltamivir 75 Mg Capsule (Tamiflu 75 (09/16/21 21:15) Ed Iv/Invasive Line Start (09/16/21 21:06) Ns Iv 1000 Ml (Sodium Chloride 0.9%) (09/16/21 21:15) Ns Iv 1000 Ml (Sodium Chloride 0.9%) (09/16/21 21:15) Ed Admission (Communication) (09/16/21 21:06) Medications Given in ED Current Medications Medications Dose Ordered Sig/Shelbi Route Start Time Stop Time Status Last Admin Dose Admin Cefepime HCl 1000 mg/Sodium Chloride 50 ml @ 100 mls/hr ONCE ONCE IV 09/16/21 19:45 09/16/21 20:14 DC 09/16/21 20:58 100 MLS/HR Methylprednisolone Sodium Succinate 125 mg ONCE ONCE IVP 09/16/21 20:15 09/16/21 20:16 DC 09/16/21 20:58 125 MG Vital Signs/I&O 09/16/21 09/16/21 19:27 20:41 Pulse 65 Resp 24 Pulse Ox 99 O2 Delivery Nasal Cannula O2 Flow Rate 5.00 30.00 Capillary Refill : Point of Care Testing Finger Stick Blood Glucose: 247 Blood Glucose Action Taken: reported to Dr. Benites Progress Note : Time: 20:11 Progress Note Patient's mentation certainly improved on oxygen and his CO2 is elevated suggesting COPD exacerbation so we will give him some steroids. Initiated a septic work-up for possible pneumonia. COVID and influenza swabs. Will hold off fluids until we see a BNP and chest x-ray. Couple episodes of diarrhea l ately could suggest a viral illness. Plan to put him on BiPAP 12-15 over 5 FiO2 to match. Pulmonary embolism is fairly unlikely given the fact that he is on Eliquis. ECG Initial ECG Impression Date: Sep 16, 2021 Initial ECG Impression Time: 20:51 Initial ECG Rate: 62 Initial ECG Rhythm: Normal Sinus Initial ECG Intervals: Normal Initial ECG Impression: Normal Diagnostic Imaging Diagonstic Imaging: Xray Plain Films/CT/US/NM/MRI: chest Comments NAME: SERG KEBEDE MED REC#: [id number] PT STATUS: REG ER : 1965 PHYSICIAN: GARRETT BENITES MD ADMIT DATE: 09/16/21/ER Draft Date of Exam:09/16/21 CHEST 1 VIEW, AP/PA ONLY INDICATION: Dyspnea. EXAMINATION: AP image of the chest was obtained. COMPARISON: Study of 02/27/2021. FINDINGS: There is cardiomegaly and pulmonary venous congestion. No pneumothorax identified. There is no consolidation. Given differences in technique, there is no significant change. IMPRESSION: Cardiomegaly and pulmonary venous congestion. Study is somewhat limited by patient habitus although no acute abnormality or adverse change is seen. Dictated on workstation # [id number] Dict: 09/16/212054 Trans: 09/16/212101 PJE [id number] Interpreted by: AMOL OSPINA MD Electronically signed by: Reviewed: Reviewed by Me Departure Communication (Admissions) Time/Spoke to Admitting Phy: 21:01 Discussed the case with Dr. Zeng who agrees to admit the patient to the ICU on fluids Vanco, cefepime, steroids and Tamiflu. Impression Primary Impression: Influenza A Additional Impressions: Acute on chronic respiratory failure with hypoxia and hypercapnia JARRET (acute kidney injury) Disposition: ADMITTED INPATIENT Condition: Stable Admissions Decision to Admit Reason: Admit from ER (General) Decision to Admit/Date: Sep 16, 2021 Time/Decision to Admit Time: 21:00 Departure-Patient Inst. Referrals: RACHEL LONGORIA DO (PCP/Family) Primary Care Physician GARRETT BENITES Sep 16, 2021 19:44
[2021-09-16 19:45] LABS: INSPIRED O2 5L; PATIENT TEMP 35.6; VENTILATOR NO
[2021-09-16] MEDS ORDERED: CEFEPIME INJECTION 1,000 MG in NS (IVPB) 50 ML IV ONE (19:45)
[2021-09-16] MEDS ORDERED: methylPREDNISolone 125 MG (Solu-MEDROL) VIAL IVP ONE (20:15)
[2021-09-16 20:34] LABS: EOSINOPHILS % (AUTO) 0 % (0-10)
[2021-09-16 20:36] LABS: BASOPHILS % (AUTO) 1 % (0-10); HEMATOCRIT 37 % (40-54); HEMOGLOBIN 10.8 g/dL (13.3-17.7); LYMPHOCYTES # (AUTO) 0.8 10^3/uL (1.0-4.0); LYMPHOCYTES % (AUTO) 15 % (12-44); MEAN CORPUSCULAR HEMOGLOBIN 26 pg (25-34); MEAN CORPUSCULAR HGB CONC 29 g/dL (32-36); MEAN CORPUSCULAR VOLUME 88 fL (80-99); MEAN PLATELET VOLUME 12.2 fL (9.0-12.2); MONOCYTES % (AUTO) 21 % (0-12); NEUTROPHILS # (AUTO) 3.1 10^3/uL (1.8-7.8); NEUTROPHILS % (AUTO) 63 % (42-75); PLATELET COUNT 177 10^3/uL (130-400)
[2021-09-16 20:41] VITALS: BP 112/101
[2021-09-16 20:47] LABS: BILIRUBIN,URINE NEGATIVE (NEGATIVE); CLARITY,URINE SL CLOUDY; COLOR,URINE YELLOW; GLUCOSE, URINE (UA) NEGATIVE (NEGATIVE); KETONES,URINE NEGATIVE (NEGATIVE); LEUKOCYTE ESTERASE ,URINE NEGATIVE (NEGATIVE); NITRITE,URINE NEGATIVE (NEGATIVE); PROTEIN,URINE 3+ (NEGATIVE)
[2021-09-16 20:57] LABS: FIBRIN DEGRADATION PRODUCTS 0.8 UG/ML (0.00-0.49); INR 1.3 (0.8-1.4); PROTHROMBIN TIME PATIENT 16.7 SEC (12.2-14.7)
--- NOTE | 2021-09-16 21:03 | Diagnostic Imaging Report ---
INDICATION: Dyspnea. EXAMINATION: AP image of the chest was obtained. COMPARISON: Study of 02/27/2021. FINDINGS: There is cardiomegaly and pulmonary venous congestion. No pneumothorax identified. There is no consolidation. Given differences in technique, there is no significant change. IMPRESSION: Cardiomegaly and pulmonary venous congestion. Study is somewhat limited by patient habitus although no acute abnormality or adverse change is seen. Dictated by: Dictated on workstation # [id number]
[2021-09-16 21:05] LABS: ALBUMIN 3.5 GM/DL (3.2-4.5); BILIRUBIN,TOTAL 0.3 MG/DL (0.1-1.0); CALCIUM 8.9 MG/DL (8.5-10.1); CREATININE SERUM 3.05 MG/DL (0.60-1.30); POTASSIUM 5.2 MMOL/L (3.6-5.0); TOTAL PROTEIN 7.6 GM/DL (6.4-8.2)
[2021-09-16 21:06] LABS: LYMPHOCYTES % (MANUAL) 16 %; MONOCYTES % (MANUAL) 19 %; NEUTROPHILS % (MANUAL) 65 %; RBC MORPH NORMAL
[2021-09-16] MEDS: VANCOMYCIN INJECTION 1,000 MG in NS (IVPB) 250 ML IV SCH ×2 (21:08→22:52)
[2021-09-16 21:15] LABS: BACTERIA,URINE TRACE /HPF; WBC,URINE 0-2 /HPF
[2021-09-16] MEDS ORDERED: OSELTAMIVIR 75 MG (TAMIFLU) CAPSULE PO ONE (21:15)
[2021-09-16] MEDS ORDERED: LOPERAMIDE 2 MG (IMODIUM) TABLET PO ONE (21:15)
[2021-09-16] MEDS ORDERED: NS IV 1000 ML 1,000 ML IV ONE (21:15)
[2021-09-16] MEDS ORDERED: NS IV 1000 ML 1,000 ML IV SCH (21:15)
[2021-09-16] MEDS ORDERED: LACTATED RINGERS 1,000 ML IV ONE ×2 (21:15)
[2021-09-16] MEDS ORDERED: ONDANSETRON 4 MG/2 ML (SDV) Z0FRAN IVP ONE (21:15)
[2021-09-16 21:16] LABS: AMORPHOUS SEDIMENT,UR MOD AMOR URATES /LPF
[2021-09-16] MEDS ORDERED: MELATONIN 3 MG TABLET PO PRN (22:15)
[2021-09-16] MEDS ORDERED: BISACODYL 10 MG SUPP (DULCOLAX) PR PRN (22:15)
[2021-09-16] MEDS ORDERED: ACETAMINOPHEN 325 MG TABLET PO PRN (22:15)
[2021-09-16] MEDS ORDERED: PHARMACY TO DOSE IV SCH (22:15)
[2021-09-16] MEDS ORDERED: diphenhydrAMINE 50 MG/ML INJ (BENADRYL) IVP PRN (22:15)
[2021-09-16] MEDS ORDERED: ANTACID SUSP 30 ML UDC (MYLANTA) PO PRN (22:15)
[2021-09-16] MEDS ORDERED: CALCIUM CARBONATE 500 MG (TUMS) TAB.CHEW PO PRN (22:15)
[2021-09-16] MEDS ORDERED: morphine INJ 4 MG/ML 1 ML (VIAL/SYRINGE) IV PRN (22:15)
[2021-09-16] MEDS ORDERED: MILK OF MAGNESIA 400 MG/5 ML 30 ML UDC PO PRN (22:15)
[2021-09-16] MEDS ORDERED: ONDANSETRON 4 MG/2 ML (SDV) Z0FRAN IV PRN (22:15)
[2021-09-16] MEDS ORDERED: LACTULOSE SYRUP 10GM/15ML (ENULOSE) 30ML UDC PO PRN (22:15)
[2021-09-16] MEDS ORDERED: ONDANSETRON 4 MG (ZOFRAN) ORAL DISSOLVE TAB PO PRN (22:15)
[2021-09-16] MEDS ORDERED: diphenhydrAMINE 25 MG TAB (BENADRYL) PO PRN (22:15)
[2021-09-16] MEDS ORDERED: polyethylene glycoL POWDER 17 GM (MIRALAX) PACK PO PRN (22:15)
[2021-09-16] MEDS ORDERED: NALOXONE 0.4 MG/ML 1 ML (NARCAN) VIAL IV PRN (22:15)
[2021-09-16] MEDS: NS IV 1000 ML 1,000 ML IV SCH (22:52)
--- NOTE | 2021-09-16 23:35 | Tele-ICU Progress Note ---
Progress Note 56M with JARRET requiring HD in 2003, R MCA CVA 06/2015 and 11/2015, pafib, chronic DVTs s/p remote IVC filter, CAD, DVT, HTN, HLD, PVD, TBI, migraines, seizures, RA,bipolar, anemia, DM, COPD transferred from [facility] with progressive dyspnea. Found to have flu A. He was initiated on BiPap, steroids, nebs, tamiflu. Overall appears clinically and HD stable. 7.31/50/79/25 - COPD exacerbation: secondary to flu. Improved with BiPap, steroids, nebs. Continue supportive care. - flu: tamiflu intiated. Empiric abx for possible bacterial componenet. PCT 0.69 - JARRET: Despite prior HD history, creatinine 1.0-1.6 over the last several years with the last reported 02/2021 at 1.6 prior to colonoscopy. Today creatinine 3. Secondary to hypovolemia vs ATN secondary to sepsis. Fluids ongoing. Monitor renal function and urine output. Has not had any hypotension. - DM: insulin sliding scale Focused Exam Lactate Level 09/16/21 20:00: Lactic Acid Level 2.05*H 09/16/21 22:20: Lactic Acid Level 1.12 Height, Weight, BMI Height: 6'2" Weight: 250lbs. 0.0oz. 113.620808ss; 51.41 BMI Method:Estimated Lactic Acid Level Laboratory Tests Test 09/16/21 20:00 09/16/21 22:20 Lactic Acid Level 2.05 MMOL/L (0.50-2.00) *H 1.12 MMOL/L (0.50-2.00) FREDERIC TOMPKINS MD Sep 16, 2021 23:35
[2021-09-17] MEDS: methylPREDNISolone 40 MG/ML (Solu-MEDROL) VIAL IV SCH ×4 (00:17→17:53)
[2021-09-17 02:35] VITALS: BP 109/55
[2021-09-17] MEDS: RT-ALBUTEROL/IPRATROPIUM 3 ML (DUONEB) VIAL INH SCH ×6 (02:35→23:13)
[2021-09-17 04:51] LABS: BASOPHILS % (AUTO) 0 % (0-10); EOSINOPHILS % (AUTO) 0 % (0-10); LYMPHOCYTES # (AUTO) 0.4 10^3/uL (1.0-4.0); NEUTROPHILS % (AUTO) 87 % (42-75)
[2021-09-17 04:53] LABS: HEMATOCRIT 36 % (40-54); HEMOGLOBIN 10.5 g/dL (13.3-17.7); LYMPHOCYTES % (AUTO) 9 % (12-44); MEAN CORPUSCULAR HEMOGLOBIN 26 pg (25-34); MEAN CORPUSCULAR HGB CONC 29 g/dL (32-36); MEAN CORPUSCULAR VOLUME 88 fL (80-99); MEAN PLATELET VOLUME 12.6 fL (9.0-12.2); MONOCYTES # (AUTO) 0.2 10^3/uL (0.0-1.0); MONOCYTES % (AUTO) 3 % (0-12); NEUTROPHILS # (AUTO) 4.3 10^3/uL (1.8-7.8); PLATELET COUNT 159 10^3/uL (130-400); WHITE BLOOD COUNT 4.9 10^3/uL (4.3-11.0)
[2021-09-17 05:19] LABS: ABG BASE EXCESS -0.9 MMOL/L (-2.5-2.5); ABG OXYGEN SATURATION 96 % (94-100); ABG PCO2 59 MMHG (35-45); ABG PO2 87 MMHG (79-93); ABG TCO2 27.4 MMOL/L (21.0-31.0); ALLENS TEST YES-POS; INSPIRED O2 30% BIPAP; PATIENT TEMP 36.2; VENTILATOR NO
[2021-09-17 05:20] LABS: ABG PH 7.25 (7.37-7.43)
[2021-09-17] MEDS: CEFEPIME 1,000 MG/NS 50 ML IVPB IV SCH ×6 (05:33→20:54)
[2021-09-17 06:01] LABS: ALBUMIN 3.2 GM/DL (3.2-4.5); POTASSIUM 5.8 MMOL/L (3.6-5.0)
[2021-09-17 06:02] LABS: CALCIUM 8.6 MG/DL (8.5-10.1)
[2021-09-17 06:04] LABS: TOTAL PROTEIN 6.8 GM/DL (6.4-8.2)
[2021-09-17 06:05] LABS: BILIRUBIN,TOTAL 0.2 MG/DL (0.1-1.0)
[2021-09-17 06:07] LABS: CREATININE SERUM 2.72 MG/DL (0.60-1.30); PHOSPHORUS 5.4 MG/DL (2.3-4.7)
[2021-09-17 06:10] LABS: MAGNESIUM 2.1 MG/DL (1.6-2.4)
[2021-09-17] MEDS: POTASSIUM CL 10MEQ/50ML IVPB 50 ML IV SCH (06:20)
[2021-09-17] MEDS: KCL 20 MEQ TAB (K-DUR) PO SCH (06:20)
[2021-09-17] MEDS: MAGNESIUM 1 GM/100 ML IVPB 100 ML IV SCH (06:20)
[2021-09-17] MEDS: NS IV 1000 ML 1,000 ML IV SCH ×3 (06:27→22:15)
[2021-09-17] MEDS: inSUlin ASPART (NovoLOG) 1 UNIT/0.01 ML (CHARGE PER UNIT) SC SCH ×4 (06:28→20:55)
--- NOTE | 2021-09-17 06:34 | History & Physical-Hospitalist ---
History of Present Illness HPI/Chief Complaint Chief complaint: Shortness of breath History of present illness: This is a 56-year-old -Turkish male who has a past medical history of hypertension chronic kidney disease who presented to the ER with shortness of breath found to have hypoxia and influenza A with bilateral pneumonia. He was placed on BiPAP with good results but he appears to have consistent with obesity hypoventilation syndrome considering his BMI is 48. He is too lethargic to tolerate p.o. meds. Source: RN/MD Exam Limitations: clinical condition (BiPAP) Date Seen 09/17/21 Time Seen by a Provider: 10:30 Attending Physician Gail Zeng DO PCP Cindy Ford DO Referring Physician Date of Admission Sep 16, 2021 at 21:07 Home Medications & Allergies Home Medications Reviewed patient Home Medication Reconciliation performed by pharmacy medication reconciliations environmental compliance technician and/or nursing. Patients Allergies have been reviewed. Allergies Allergies Coded Allergies penicillin V (Unverified Allergy, Unknown, 10/01/08) erythromycin base (Unverified Adverse Reaction, Mild, VOMITING, 03/18/13) Past Ybgsepk-Mwxzfw-Jqlgwr Hx Patient Social History Marrital Status: single Tobacco Use?: Yes Tobacco type used: Cigarettes Smoking Status: Current Everyday Smoker Use of E-Cig and/or Vaping dev: No Substance use?: No Alcohol Use?: No Immunizations Up To Date Date of Pneumonia Vaccine: Mar 20, 2013 Seasonal Allergies Seasonal Allergies: No Current Status Primary Language: Mexican Preferred Spoken Language: Mexican Past Medical History Surgeries: Cardiac, Dialysis, Orthopedic, Renal, Vascular Surgery Asthma, Pneumonia Currently Using CPAP: No Currently Using BIPAP: No Coronary Artery Disease, Deep Vein Thrombosis, Heart Attack, High Cholesterol, Hypertension, Irregular Heartbeat, Peripheral Vascular Concussion, Headaches /Migraines, Neuropathy, Seizure Disorder, Stroke Sexually Transmitted Disease: No HIV/AIDS: No Kidney Stones, Renal Failure Colitis, Gastroesophageal Reflux, Diverticulosis, Polyps, Hiatal Hernia Arthritis, Fibromyalgia, Rheumatoid Arthritis, Chronic Back Pain Diabetes, Insulin dep Glaucoma Loss of Vision: Bilateral Hearing Impairment: Denies Sleep Difficulties, Bipolar, Depression Blood Disorders: Yes (ANEMIA, BLOOD CLOTS ) Past Medical History 1. Diabetes Mellitus 2. Hypertension 3. Seizure Disorder- history of grand mal per pt. report (no records of neurology evaluation) 4. Bi-polar Disorder 5. Depression 6. Anxiety 7. Peripheral Neuropathy 8. History of Acute Renal Failure requiring hemodialysis 2003. 9. History of superficial RUE venous thrombus due to central line placement 10. History of chronic joint pain. 11. Chronic Peripheral Edema 12. Tobaccoism 13. 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 14. Diastolic dysfunction due to uncontrolled hypertension 15. Mild coronary artery disease per cath 16. Hyperlipidemia 17. Non-compliance with follow up and medication use 18. Hx ischemic Right Frontoparietal Infarct in the Right MCA distribution 06/2015 19. Hx of second right MCA stroke in 11/2015 20. Paroxysmal atrial fibrillation Family Medical History Cardiovascular disease 19 MOTHER G8 BROTHER Colon cancer 19 MOTHER Completed stroke 19 FATHER Dementia 19 FATHER Diabetes mellitus 19 MOTHER FHx: macular degeneration 19 FATHER Myocardial infarction 19 MOTHER Heart Disease, Diabetes, Hypertension Review of Systems ROS-Unable to Obtain: On BiPAP and confused Constitutional: see HPI Physical Exam Physical Exam Vital Signs Vital Signs - First Documented 09/16/21 09/16/21 19:25 23:46 Temp 35.2 Pulse 62 Resp 24 B/P (MAP) 140/69 (92) Pulse Ox 98 O2 Delivery Nasal Cannula O2 Flow Rate 5.00 FiO2 30 Capillary Refill : Less Than 3 Seconds Height, Weight, BMI Height: 6'2" Weight: 250lbs. 0.0oz. 113.010558cv; 47.18 BMI Method:Estimated General Appearance: Anxious, Chronically ill, Obese Respiratory: No Accessory Muscle Use, No Respiratory Distress Cardiovascular: Regular Rate, Rhythm Neurologic/Psychiatric: Disoriented Results Results/Procedures Labs Laboratory Tests 09/16/21 20:00 09/17/21 04:35 09/17/21 10:15 09/18/21 05:00 Patient resulted labs reviewed. Assessment/Plan Admission Diagnosis Assessment: Acute respiratory failure now BiPAP dependent Obesity hypoventilation syndrome presumed Super morbid obesity with 48 BMI Chronic kidney disease Hypertension Seizure disorder CVA history CAD Plan: BiPAP Antibiotics Tamiflu Anticoagulation Admission Status: Inpatient Order (span 2 midnights) Reason for Inpatient Admission: resp failure Diagnosis/Problems Diagnosis/Problems (1) Influenza A Status: Acute (2) JARRET (acute kidney injury) Status: Acute (3) Acute on chronic respiratory failure with hypoxemia Status: Acute (4) HTN (hypertension) Status: Acute (5) Non compliance with medical treatment Status: Acute (6) Chronic pain Status: Acute (7) Seizure disorder Status: Chronic (8) Anxiety Status: Chronic (9) Uncontrolled diabetes mellitus Status: Chronic (10) Generalized weakness Status: Acute (11) Late effects of CVA (cerebrovascular accident) Status: Acute GAIL ZENG DO Sep 17, 2021 06:34
--- NOTE | 2021-09-17 07:15 | Diagnostic Imaging Report ---
HISTORY: Pneumonia COMPARISON: 09/16/2021 TECHNIQUE: Frontal view of the chest. FINDINGS: There is mild cardiomegaly with central vascular congestion. No airspace consolidation is seen. There is no pleural effusion or pneumothorax. IMPRESSION: 1. Central vascular congestion with no focal consolidation seen. Dictated by: Dictated on workstation # [id number]
[2021-09-17 08:11] VITALS: BP 130/68
[2021-09-17] MEDS: RT--FLUTICASONE/SALMETEROL 113-14 (AIRDUO RespiCLICK) IH SCH ×2 (08:14→19:33)
[2021-09-17] MEDS ORDERED: SOD POLYSTERENE 15 GM/60 ML (KAYEXALATE) UNIT DOSE ONE (08:21)
[2021-09-17] MEDS: OSELTAMIVIR 30 MG (TAMIFLU) CAPSULE PO SCH ×3 (08:38→20:53)
[2021-09-17] MEDS: APIXABAN 5 MG (ELIQUIS) TABLET PO SCH ×3 (08:38→20:53)
[2021-09-17] MEDS: SOD POLYSTERENE 15 GM/60 ML (KAYEXALATE) UNIT DOSE PO ONE ×2 (08:38→08:44)
[2021-09-17] MEDS: DOCUSATE SODIUM 100 MG (COLACE) CAP PO SCH ×2 (08:38→20:57)
[2021-09-17] MEDS: SENNOSIDES 8.6 MG (SENOKOT) TAB PO SCH ×2 (08:39→20:57)
--- NOTE | 2021-09-17 08:54 | Physical Therapy Evaluation ---
PT Evaluation-General Medical Diagnosis Admission Date Sep 16, 2021 at 21:07 Medical Diagnosis: influenza A, resp. failure Onset Date: Sep 16, 2021 Therapy Diagnosis Therapy Diagnosis: impaired mobility, strength Height/Weight Height (Feet): 6 Height (Inches): 2 Weight (Pounds): 250 Weight (Ounces): 0.0 Precautions Precautions/Isolations: Fall Prevention, Standard Precautions Referral Physician: Gail Zeng DO Reason for Referral: Evaluation/Treatment Medical History Pertinent Medical History: Arthritis, CAD, CVA, DM, Diverticulitis, GERD, HTN, NC, Neuropathy, PVD, Rheumatoid Arthritis, Smoking Additional Medical History Past Medical History Surgeries: Yes Cardiac, Dialysis, Orthopedic, Renal, Vascular Surgery Respiratory: Yes (COMMUNITY ACQUIRED PNEUMONIA) Asthma, Pneumonia Currently Using CPAP: No Currently Using BIPAP: No Cardiac: Yes (PAD) Coronary Artery Disease, Deep Vein Thrombosis, Heart Attack, High Cholesterol, Hypertension, Irregular Heartbeat, Peripheral Vascular Neurological: Yes (BRAIN INJURY CAUSES EMOTIONS TO CHANGE . LEFT SIDE WEAKNESS) Concussion, Headaches /Migraines, Neuropathy, Seizure Disorder, Stroke Reproductive Disorders: No Sexually Transmitted Disease: No HIV/AIDS: No Kidney Stones, Renal Failure Gastrointestinal: Yes Colitis, Gastroesophageal Reflux, Diverticulosis, Polyps, Hiatal Hernia Musculoskeletal: Yes (WEAKNESS IN LEGS FROM STROKE ) Arthritis, Fibromyalgia, Rheumatoid Arthritis, Chronic Back Pain Endocrine: Yes Diabetes, Insulin dep Glaucoma Loss of Vision: Bilateral Hearing Impairment: Denies Cancer: No Psychosocial: Yes Sleep Difficulties, Bipolar, Depression Integumentary: No Blood Disorders: Yes (ANEMIA, BLOOD CLOTS ) Reviewed History: Yes Social History Home: Senior Living Prior Prior Level of Function SCALE: Activities may be completed with or without assistive devices. 5-Yrdmmwixnu-eqhgqzp completes the activity by him/herself with no assistance from a helper. 5-Set-up or Clean-up Assistance-helper sets up or cleans up; patient completes activity. [place] assists only prior to or following the activity. 4-Supervision or Touching Assistance-helper provides verbal cues and/or touching/steadying and/or contact guard assistance as patient completes activity. Assistance may be provided throughout the activity or intermittently. 3-Partial/Moderate Assistance-helper does LESS THAN HALF the effort. [place] lifts, holds or supports trunk or limbs, but provides less than half the effort. 2-Substantial/Maximal Assistance-helper does MORE THAN HALF the effort. [place] lifts or holds trunk or limbs and provides more than half the effort. 3-Hmzixdpjq-eicqcn does ALL the effort. Patient does none of the effort to complete the activity. Or, the assistance of 2 or more helpers is required for the patient to complete the activity. If activity was not attempted, code reason: 7-Patient Refused. 9-Not Applicable-not attempted and the patient did not perform the activity before the current illness, exacerbation or injury. 10-Not Attempted due to Environmental Limitations-(lack of equipment, weather restraints, etc.). 88-Not Attempted due to Medical Conditions or Safety Concerns. Bed Mobility: 3 Prior Devices Use: Manual wheelchair Patient states he mostly uses a WC at the senior care, unsure about how much help he usually needs during transfers PT Evaluation-Current Subjective Patient in bed pre tx, agrees to PT, voices no complaints of pain, has a bipap on so communication is difficult. Pt/Family Goals none stated Objective Patient Orientation: Person, Unable to Assess, [place] Attachments: Oxygen (bipap) Sensory Hearing: Functional Transfers Roll Left to Right (QC): 2 Sit to Lying (QC): 2 Lying to Sitting/Side of Bed(Q: 2 Patient is on the bedpan as therapy enters the room, he rolls with max assist, bedpan is removed and he has done anything. He sits to the side of the bed with max assist, he can't really perform LE AROM. His left leg doesn't move at all and his right leg just moves partially, probably has around 2/5 strength on that side. Lays back down with max assist and is scooted up. Patient sits on the side of the bed for about 5 min, O2 stays in the upper 90's. Balance Sitting Static: Fair Sitting Dynamic: Fair Assessment/Needs Patient in bed post tx with nurse call, phone, tray, all needs met. Patient has impaired mobility, strength, endurance. He needs max assist for mobility, he doesn't appear to be able to stand at this time. Rehab Potential: Fair PT Nursing Home Goals Home Health Travel Ot Goals PT Nursing Home Goals Time Frame: Sep 24, 2021 Roll Left & Right (QC): 3 Sit to Lying (QC): 3 Lying-Sitting on Side/Bed(QC): 3 Sit to Stand (QC): 3 Chair/Tgm-wp-Gzufh Xfer(QC): 3 PT Plan Problem List Problem List: Activity Tolerance, Functional Strength, Safety, Balance, Gait, Transfer, Bed Mobility, ROM Treatment/Plan Treatment Plan: Continue Plan of Care Treatment Plan: Bed Mobility, Education, Functional Activity Pancho, Functional Strength, Gait, Safety, Therapeutic Exercise, Transfers Treatment Duration: Sep 24, 2021 Frequency: 6 times per week Estimated Hrs Per Day: .25 hour per day Patient and/or Family Agrees t: Yes Safety Risks/Education Patient Education: Correct Positioning, Safety Issues Teaching Recipient: Patient Teaching Methods: Demonstration, Discussion Response to Teaching: Reinforcement Needed Discharge Recommendations Plan Patient will perform bed mobility and transfer training, balance and endurance training, functional strengthening, gait training, and education, to improve functional mobility and independence at home. Therapy Discharge Recommendati: 24 Hour Supervision Time/GCodes Time In: 809 Time Out: 822 Total Billed Treatment Time: 13 Total Billed Treatment 1 visit JUAN BETTENCOURT PT Sep 17, 2021 08:54
--- NOTE | 2021-09-17 08:57 | Occupational Therapy Eval ---
OT Evaluation-General/PLF Medical Diagnosis Admission Date Sep 16, 2021 at 21:07 Medical Diagnosis: Influenza A, acute on chronic respiratory failure Onset Date: Sep 16, 2021 Therapy Diagnosis Therapy Diagnosis: decreased ADL status Height/Weight Height (Feet): 6 Height (Inches): 2 Weight (Pounds): 250 Weight (Ounces): 0.0 Precautions Precautions/Isolations: Fall Prevention, Standard Precautions Referral Physician: Karri Referral Reason: Evaluation/Treatment Medical History Pertinent Medical History: Arthritis, CAD, CVA, DM, Diverticulitis, GERD, HTN, [place], Neuropathy, PVD, Rheumatoid Arthritis, Smoking Additional Medical History asthma, PNA, CAD, HTN, irregular heartbeat, PVD, neuropathy, seizures, CVA, renal failure, GERD, diverticulosis, arthritis/RA, fibromyalgia, DM, glaucoma, bipolar, depression, THC/meth use. Current History ED from [facility], c/o SOA and AMS Social History Home: Shelter ADL-Prior Level of Function SCALE: Activities may be completed with or without assistive devices. 8-Kbppjkfhwq-sdjbwrs completes the activity by him/herself with no assistance from a helper. 5-Set-up or Clean-up Assistance-helper sets up or cleans up; patient completes activity. [place] assists only prior to or following the activity. 4-Supervision or Touching Assistance-helper provides verbal cues and/or touching/steadying and/or contact guard assistance as patient completes activity. Assistance may be provided throughout the activity or intermittently. 3-Partial/Moderate Assistance-helper does LESS THAN HALF the effort. [place] lifts, holds or supports trunk or limbs, but provides less than half the effort. 2-Substantial/Maximal Assistance-helper does MORE THAN HALF the effort. [place] lifts or holds trunk or limbs and provides more than half the effort. 5-Myymvrgap-ntmxed does ALL the effort. Patient does none of the effort to complete the activity. Or, the assistance of 2 or more helpers is required for the patient to complete the activity. If activity was not attempted, code reason: 7-Patient Refused. 9-Not Applicable-not attempted and the patient did not perform the activity before the current illness, exacerbation or injury. 10-Not Attempted due to Environmental Limitations-(lack of equipment, weather restraints, etc.). 88-Not Attempted due to Medical Conditions or Safety Concerns. ADL PLOF Comments Pt reports primarily using w/c for functional mobility, he is able to propel it a little bit, but usually needs assistance. LOF with ADLs unknown at this time, as history is limited by bipap. Self Care: Needed Some Help Functional Cognition: Unknown OT Current Status Subjective Pt in bed, BiPAP on, pt agreeable to OT evaluation Mental Status/Objective Patient Orientation: Person Attachments: Ott Catheter, IV, Oxygen (BiPAP) Current Upper Extremity ROM Decreased BUE, RUE shoulder flexion to approx 90 degrees during tx, LUE to approx 60 degrees Upper Extremity Coordination decreased Upper Extremity Strength grossly 3/5 ADL-Treatment Eating (QC): 88 On/Off Footwear (QC): 1 Toileting Hygiene (QC): 1 Other Treatments Pt in bed, rolled side to side to remove bed isidro, perform hygiene, and change guerrero pad. Pt then transferred to EOB, sat for ~5 mins. O2 saturation stays in the upper 90%'s throughout session. Pt returned supine, then required assistance to scoot up towards HOB. Post tx, pt in bed, call light in reach and all needs met. Max A rolling, max A supine to sit EOB, max A sit to supine, and max A to scoot towards HOB. Education OT Patient Education: Correct positioning, Energy conservation, Modified ADL techniques, Progress toward Goal/Update tx plan, Purpose of tx/functional activities, Rehab process Teaching Recipient: Patient Teaching Methods: Discussion Response to Teaching: Verbalize Understanding OT Residential Goals Residential Goals Time Frame: Oct 01, 2021 Eating (QC): 5 Oral Hygiene (QC): 5 Toileting Hygiene (QC): 3 Shower/Bathe Self (QC): 2 Upper Body Dressing (QC): 3 Lower Body Dressing (QC): 2 Additional Goals: 1-Demonstrate ADL Tasks, 2-Verbalize Understanding, 3- ImproveStrength/Pancho 1=Demonstrate adherence to instructed precautions during ADL tasks. 2=Patient will verbalize/demonstrate understanding of assistive devices/modifications for ADL. 3=Patient will improve strength/tolerance for activity to enable patient to perform ADL's. OT Education/Plan Problem List/Assessment Assessment: Decreased Activ Tolerance, Decreased UE Strength, Impaired Bed Mobility, Impaired Funct Balance, Impaired I ADL's, Impaired Self-Care Skills Discharge Recommendations Plan/Recommendations: Continue POC Treatment Plan/Plan of Care Patient would benefit from OT for education, treatment and training to promote independence in ADL's, mobility, safety and/or upper extremity function for ADL's. Plan of Care: ADL Retraining, Functional Mobility, UE Funct Exercise/Act Treatment Duration: Oct 01, 2021 Frequency: 3 times per week (3-5 times per week) Time/GCodes Start Time: 08:10 Stop Time: 08:23 Total Time Billed (hr/min): 13 Billed Treatment Time 1, CALLIE DUTTON OT Sep 17, 2021 08:57
[2021-09-17] MEDS ORDERED: CEFEPIME INJECTION 2,000 MG in NS (IVPB) 50 ML IV SCH (09:00)
[2021-09-17 09:09] LABS: ABG OXYGEN SATURATION 93 % (94-100); ABG PCO2 48 MMHG (35-45); ABG PO2 71 MMHG (79-93)
[2021-09-17 09:11] LABS: ABG PH 7.31 (7.37-7.43); ALLENS TEST YES-POS; INSPIRED O2 5 L; PATIENT TEMP 36.6; VENTILATOR NO
[2021-09-17 10:33] VITALS: BP 152/77
[2021-09-17 10:41] LABS: CALCIUM 8.1 MG/DL (8.5-10.1); CREATININE SERUM 2.63 MG/DL (0.60-1.30); POTASSIUM 5.5 MMOL/L (3.6-5.0)
--- NOTE | 2021-09-17 12:32 | Tele-ICU Progress Note ---
Subjective Date Seen by a Provider: Sep 17, 2021 Time Seen by a Provider: 12:31 Sepsis Event Evaluation Height, Weight, BMI Height: 6'2" Weight: 250lbs. 0.0oz. 113.906844pa; 47.18 BMI Method:Estimated Focused Exam Lactate Level 09/16/21 20:00: Lactic Acid Level 2.05*H 09/16/21 22:20: Lactic Acid Level 1.12 Exam Exam Patient acknowledged, consented, and participated in this virtual visit which was conducted using real time audio/video Vital Signs Date Time Temp Pulse Resp B/P (MAP) Pulse Ox O2 Delivery O2 Flow Rate FiO2 09/17/21 11:00 59 16 113/55 96 NIV Bilevel 30.00 09/17/21 10:33 59 17 98 30.00 09/17/21 10:00 54 23 125/72 96 NIV Bilevel 30.00 09/17/21 09:03 36.6 56 18 122/68 96 NIV Bilevel 30.00 09/17/21 09:00 58 8 122/68 94 NIV Bilevel 30.00 09/17/21 08:11 64 19 95 30.00 09/17/21 08:00 64 15 138/63 97 NIV Bilevel 30.00 09/17/21 07:00 59 09/17/21 07:00 63 23 126/64 94 NIV Bilevel 30.00 09/17/21 06:00 66 15 106/55 97 NIV Bilevel 30.00 09/17/21 05:00 65 20 120/80 96 NIV Bilevel 30.00 09/17/21 04:00 NIV Bilevel 30 09/17/21 04:00 55 23 108/50 95 NIV Bilevel 30.00 09/17/21 04:00 36.4 09/17/21 03:00 53 18 104/52 94 NIV Bilevel 30.00 09/17/21 02:35 64 19 95 30.00 09/17/21 02:00 66 16 134/77 94 NIV Bilevel 30.00 09/17/21 01:00 66 09/17/21 01:00 66 19 122/60 93 NIV Bilevel 30.00 09/17/21 00:50 36.3 09/17/21 00:00 64 19 151/72 96 NIV Bilevel 30.00 09/16/21 23:53 NIV Bilevel 30 09/16/21 23:46 69 99 30 09/16/21 23:30 63 14 143/80 91 NIV Bilevel 30.00 09/16/21 23:00 57 18 119/65 93 NIV Bilevel 30.00 09/16/21 22:45 66 14 145/76 90 NIV Bilevel 30.00 09/16/21 22:30 64 17 146/89 94 NIV Bilevel 30.00 09/16/21 22:23 69 24 97 30.00 09/16/21 22:15 36.8 64 18 137/74 96 NIV Bilevel 30.00 09/16/21 22:09 62 09/16/21 21:29 35.2 66 12 167/76 98 NIV Bilevel 30.00 09/16/21 20:41 65 24 99 30.00 09/16/21 19:27 Nasal Cannula 5.00 09/16/21 19:25 35.2 62 24 140/69 (92) 98 Nasal Cannula 5.00 I & O 09/17/21 07:00 Intake Total 1550 ml Output Total 1775 ml Balance -225 ml Height & Weight Height: 6'2" Weight: 250lbs. 0.0oz. 113.834285ok; 47.18 BMI Method:Estimated General Appearance: No Apparent Distress Capillary Refill: Less Than 3 Seconds Gastrointestinal: normal bowel sounds, non tender Results Lab Laboratory Tests 09/16/21 20:00 09/17/21 04:35 09/17/21 10:15 Assessment/Plan Assessment/Plan (Tele-ICU Physician , Progress Note ) Available chart/ vitals / labs / Images reviewed Video assessment done using teleICU camera, rest of exam as per RN Discussed with RN , EXAM PER RN Events overnight : off bipap am - > very somnilent - back on biapap Afebrile FiO2 - I/O = Drips: Pressors: , hemodynamically stable Consultants: Hospital course: 56M with JARRET requiring HD in 2003, 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 Found to have flu A. He was initiated on BiPap, steroids, nebs, tamiflu. Overall appears clinically and HD stable. Acute rersp fail;ure off bipap am - > very somnilent - back on biapap - now on 26/04 rr 14-20 tv 400 30% - follow abg COPD exacerbation - BiPap, steroids, nebs. Continue supportive care. - flu -tamiflu - Empiric abx for possible bacterial componenet. PCT 0.69 AK/CKD - last cr 07/15 last year - hydratuion , follow K - DM: insulin sliding scale Lines : (Central Line Necessity Reviewed) Ott: + OG: Nutrition: Analgesia: Anxiety/ delirium VTE Prophylaxis: apixaban Stress Ulcer Prophylaxis: Plans in collaboration with bedside consultants and IM MDs. Discussed with RN to reach out if any questions or concerns A total of 35 minutes of critical care time was devoted to this patient today, required to treat and/or prevent further deterioration of critical care condition ( as above) . JAVIER MISTRY MD Sep 17, 2021 12:32
[2021-09-17] MEDS ORDERED: LISI40TA9 PO (14:11)
[2021-09-17] MEDS ORDERED: MECL-149 PO (14:11)
[2021-09-17] MEDS ORDERED: METO2.5T PO (14:11)
[2021-09-17] MEDS ORDERED: ERGO1250 PO (14:11)
[2021-09-17] MEDS ORDERED: DOCU100C37 PO (14:11)
[2021-09-17] MEDS ORDERED: AMLO-251 PO (14:11)
[2021-09-17] MEDS ORDERED: POLY17PO6 PO (14:11)
[2021-09-17] MEDS ORDERED: HYDR25TA4 PO (14:11)
[2021-09-17] MEDS ORDERED: TRAM50TA3 PO (14:11)
[2021-09-17] MEDS ORDERED: GUAI5LIQ11 PO (14:11)
[2021-09-17] MEDS ORDERED: METO100T12 PO (14:11)
[2021-09-17] MEDS ORDERED: LOPE2TAB34 PO (14:11)
[2021-09-17] MEDS ORDERED: ASPI-1238 PO (14:11)
[2021-09-17] MEDS ORDERED: ACET325T38 PO (14:11)
[2021-09-17] MEDS ORDERED: PEDI18TA2 PO (14:11)
[2021-09-17] MEDS ORDERED: ALB0.5V INH (14:11)
[2021-09-17] MEDS ORDERED: ONDA4TAB11 PO (14:11)
[2021-09-17] MEDS ORDERED: CALC500T64 PO (14:11)
[2021-09-17] MEDS ORDERED: MELA3TAB39 PO (14:11)
[2021-09-17] MEDS ORDERED: GABA800T10 PO (14:22)
[2021-09-17 14:30] LABS: ABG BASE EXCESS -2.5 MMOL/L (-2.5-2.5); ABG OXYGEN SATURATION 95 % (94-100); ABG PCO2 53 MMHG (35-45); ABG PO2 81 MMHG (79-93); ABG TCO2 25.5 MMOL/L (21.0-31.0)
[2021-09-17 14:49] LABS: ABG PH 7.27 (7.37-7.43)
[2021-09-17 14:50] LABS: INSPIRED O2 30%; VENTILATOR NO
[2021-09-17 19:33] VITALS: BP 81/59
[2021-09-17 23:13] VITALS: BP 105/57
[2021-09-18] MEDS: methylPREDNISolone 40 MG/ML (Solu-MEDROL) VIAL IV SCH (00:15)
[2021-09-18 03:06] VITALS: BP 117/67
[2021-09-18] MEDS: RT-ALBUTEROL/IPRATROPIUM 3 ML (DUONEB) VIAL INH SCH ×3 (03:06→11:20)
[2021-09-18] MEDS ORDERED: VANCOMYCIN 1 GM/NS 250 ML IVPB IV ONE ×2 (05:00)
[2021-09-18 05:31] LABS: BASOPHILS % (AUTO) 0 % (0-10); EOSINOPHILS % (AUTO) 0 % (0-10)
[2021-09-18] MEDS: CEFEPIME 1,000 MG/NS 50 ML IVPB IV SCH ×4 (05:32→15:06)
[2021-09-18 05:33] LABS: HEMATOCRIT 33 % (40-54); HEMOGLOBIN 9.8 g/dL (13.3-17.7); LYMPHOCYTES # (AUTO) 0.6 10^3/uL (1.0-4.0); LYMPHOCYTES % (AUTO) 7 % (12-44); MEAN CORPUSCULAR HEMOGLOBIN 26 pg (25-34); MEAN CORPUSCULAR HGB CONC 30 g/dL (32-36); MEAN CORPUSCULAR VOLUME 89 fL (80-99); MONOCYTES # (AUTO) 0.4 10^3/uL (0.0-1.0); MONOCYTES % (AUTO) 5 % (0-12); NEUTROPHILS # (AUTO) 7.4 10^3/uL (1.8-7.8); NEUTROPHILS % (AUTO) 87 % (42-75); PLATELET COUNT 159 10^3/uL (130-400); WHITE BLOOD COUNT 8.4 10^3/uL (4.3-11.0)
[2021-09-18 05:46] LABS: ALBUMIN 3.1 GM/DL (3.2-4.5); POTASSIUM 6.2 MMOL/L (3.6-5.0)
[2021-09-18 05:48] LABS: CALCIUM 7.7 MG/DL (8.5-10.1)
[2021-09-18 05:49] LABS: TOTAL PROTEIN 6.6 GM/DL (6.4-8.2)
[2021-09-18 05:51] LABS: BILIRUBIN,TOTAL 0.2 MG/DL (0.1-1.0)
[2021-09-18 05:52] LABS: PHOSPHORUS 4.6 MG/DL (2.3-4.7)
[2021-09-18 05:53] LABS: CREATININE SERUM 2.88 MG/DL (0.60-1.30)
[2021-09-18 05:55] LABS: MAGNESIUM 2.4 MG/DL (1.6-2.4)
[2021-09-18] MEDS: KCL 20 MEQ TAB (K-DUR) PO SCH (06:00)
[2021-09-18] MEDS: MAGNESIUM 1 GM/100 ML IVPB 100 ML IV SCH (06:00)
[2021-09-18] MEDS: POTASSIUM CL 10MEQ/50ML IVPB 50 ML IV SCH (06:00)
[2021-09-18 06:04] LABS: VANCOMYCIN,TROUGH 11.4 UG/ML (10.0-20.0)
[2021-09-18 06:17] LABS: ABG OXYGEN SATURATION 95 % (94-100); ABG PCO2 49 MMHG (35-45); ABG PO2 79 MMHG (79-93); ABG TCO2 23.6 MMOL/L (21.0-31.0); INSPIRED O2 30% BIPAP; VENTILATOR NO
[2021-09-18 06:18] LABS: ABG PH 7.27 (7.37-7.43); ALLENS TEST YES-POS; PATIENT TEMP 36.4
[2021-09-18] MEDS ORDERED: inSUlin (REGULAR) HUMAN 1 UNIT/0.01 ML (CHARGE PER UNIT) IV ONE (06:30)
[2021-09-18] MEDS ORDERED: SODIUM BICARB 8.4% 50 MEQ/50 ML (ABBOTT) SYR IV ONE (06:45)
[2021-09-18] MEDS ORDERED: TROUGH ORDER-PHARMACY XX ONE (07:00)
--- NOTE | 2021-09-18 07:36 | Progress Note - Hospitalist ---
Subjective HPI/CC On Admission Date Seen by Provider: Sep 18, 2021 Chief complaint: Shortness of breath History of present illness: This is a 56-year-old -[place] male who has a past medical history of hypertension chronic kidney disease who presented to the ER with shortness of breath found to have hypoxia and influenza A with bilateral pneumonia. He was placed on BiPAP with good results but he appears to have consistent with obesity hypoventilation syndrome considering his BMI is 48. He is too lethargic to tolerate p.o. meds. Focused Exam Lactate Level 09/16/21 20:00: Lactic Acid Level 2.05*H 09/16/21 22:20: Lactic Acid Level 1.12 Objective Exam Vital Signs Vital Signs Date Time Temp Pulse Resp B/P (MAP) Pulse Ox O2 Delivery O2 Flow Rate FiO2 09/18/21 10:00 67 20 142/93 99 NIV Bilevel 30.00 09/18/21 08:00 36.1 09/18/21 04:00 30 Capillary Refill : Less Than 3 Seconds Results/Procedures Lab Laboratory Tests 09/18/21 05:00 09/18/21 10:03 Patient resulted labs reviewed. Diagnosis/Problems Diagnosis/Problems (1) Influenza A Status: Acute (2) JARRET (acute kidney injury) Status: Acute (3) Acute on chronic respiratory failure with hypoxemia Status: Acute (4) HTN (hypertension) Status: Acute (5) Non compliance with medical treatment Status: Acute (6) Chronic pain Status: Acute (7) Seizure disorder Status: Chronic (8) Anxiety Status: Chronic (9) Uncontrolled diabetes mellitus Status: Chronic (10) Generalized weakness Status: Acute (11) Late effects of CVA (cerebrovascular accident) Status: Acute BAYRON NEGRETE DO Sep 18, 2021 07:36
[2021-09-18 07:47] VITALS: BP 147/78
[2021-09-18] MEDS ORDERED: VANCOMYCIN 1,750 MG/NS 500 ML IVPB IV SCH ×4 (08:00→10:00)
[2021-09-18] MEDS ORDERED: methylPREDNISolone 40 MG/ML (Solu-MEDROL) VIAL IV SCH (09:00)
[2021-09-18] MEDS: NS IV 1000 ML 1,000 ML IV SCH ×3 (09:03→14:53)
[2021-09-18] MEDS: inSUlin ASPART (NovoLOG) 1 UNIT/0.01 ML (CHARGE PER UNIT) SC SCH ×2 (09:03→11:49)
[2021-09-18] MEDS: DOCUSATE SODIUM 100 MG (COLACE) CAP PO SCH (09:05)
[2021-09-18] MEDS: APIXABAN 5 MG (ELIQUIS) TABLET PO SCH (09:06)
[2021-09-18] MEDS: SENNOSIDES 8.6 MG (SENOKOT) TAB PO SCH (09:06)
[2021-09-18] MEDS: OSELTAMIVIR 30 MG (TAMIFLU) CAPSULE PO SCH (09:06)
--- NOTE | 2021-09-18 09:30 | Physical Therapy Daily Note ---
PT Daily Note-Current Subjective Pt agreeable. Reports pain "all over" not rated. Mental Status Patient Orientation: Person, Place, Time, Situation Attachments: Oxygen, Ott Catheter, IV Multiple lines Transfers SCALE: Activities may be completed with or without assistive devices. 6-Lunmqdlrhf-pedwkzh completes the activity by him/herself with no assistance from a helper. 5-Set-up or Clean-up Assistance-helper sets up or cleans up; patient completes activity. [place] assists only prior to or following the activity. 4-Supervision or Touching Assistance-helper provides verbal cues and/or touching/steadying and/or contact guard assistance as patient completes activity. Assistance may be provided throughout the activity or intermittently. 3-Partial/Moderate Assistance-helper does LESS THAN HALF the effort. [place] lifts, holds or supports trunk or limbs, but provides less than half the effort. 2-Substantial/Maximal Assistance-helper does MORE THAN HALF the effort. [place] lifts or holds trunk or limbs and provides more than half the effort. 8-Njhetejzy-ajlpny does ALL the effort. Patient does none of the effort to complete the activity. Or, the assistance of 2 or more helpers is required for the patient to complete the activity. If activity was not attempted, code reason: 7-Patient Refused. 9-Not Applicable-not attempted and the patient did not perform the activity before the current illness, exacerbation or injury. 10-Not Attempted due to Environmental Limitations-(lack of equipment, weather restraints, etc.). 88-Not Attempted due to Medical Conditions or Safety Concerns. Sit to Lying (QC): 4 Lying to Sitting/Side of Bed(Q: 4 Pt moved supine<->sit EOB with min A x 1 with HOB elevated (Pt has adjustable bed at PLOF). Pt able to move up in bed (I) with bed tilted. Gait Training Does the Patient Walk?: No and Walking Goal NOT indicated Exercises Seated Therapy Exercises: Ankle pumps, Long arc quads Seated Reps: 15 Treatments Pt sat EOB, (I) x 10' with seated LE exercise at EOB. Pt returned to bed with all needs met, O2 in situ. Pt placed on nasal canula with nsg approval, sats maintained >97% with activity. Nursing in room to address IV. Assessment Current Status: Good Progress Pt tolerated well. Improved (I) with transfer to EOB. PT Fpc Goals Fpc Goals PT Fpc Goals Time Frame: Sep 24, 2021 Roll Left & Right (QC): 3 Sit to Lying (QC): 3 Lying-Sitting on Side/Bed(QC): 3 Sit to Stand (QC): 3 Chair/Ukb-ri-Nmges Xfer(QC): 3 PT Plan Problem List Problem List: Activity Tolerance, Functional Strength, Safety, Balance, Transfer, Bed Mobility, ROM Treatment/Plan Treatment Plan: Continue Plan of Care Treatment Plan: Bed Mobility, Education, Functional Activity Pancho, Functional Strength, Gait, Safety, Therapeutic Exercise, Transfers Treatment Duration: Sep 24, 2021 Frequency: 6 times per week Estimated Hrs Per Day: .25 hour per day Patient and/or Family Agrees t: Yes Time/GCodes Time In: 854 Time Out: 917 Total Billed Treatment Time: 23 Total Billed Treatment 1, FA x 23' BRENDA CARPENTER DPRachel Sep 18, 2021 09:29
--- NOTE | 2021-09-18 10:09 | Tele-ICU Progress Note ---
Subjective Date Seen by a Provider: Sep 18, 2021 Time Seen by a Provider: 08:35 Subjective/Events-last exam This virtual visit was conducted using real time audio/video. Thank you for asking us to see this patient for respiratory insufficiency due to AECOPD, Inf A. PE: Morbid obesity. VSS. O2 sat 98% on BiPAP35% 27/11. HEENT: No obvious masses, adenopathy or JVD. Chest: clear to auscultation. CV: RRR S1 S2 No murmur or added sounds. Abd: Non-tender. Bowel sounds Y. : Unremarkable. Ott Y. DREDGE PIPEMAN/psychiatric: Grossly intact. No obvious focal findings. Extremities: 1+ edema. Capillary refill < 3 seconds. Skin: unremarkable. Results: Elevated BUN 66, Creat 2.88, K 6.2. Decreased Hb 9.8. B.27/49/79. CXR: Cardiomeg., congestion . Available chart/ vitals / labs / images reviewed. Video assessment done using teleICU camera, rest of exam as per RN. A/P: Respiratory insufficiency: Continue present management with BiPAP, Airduo, Duonebs, medrol, Tamiflu Monitor for increasing oxygenation needs and/or need for intubation. Critical Care: critically ill patient. Cont. Eliquis, abx, Detemir. Discussed with MANUEL Barajas. Asked RN to reach out to eICU if any questions or concerns later. Time spent with patient/coordination of care with other health professionals. Consider transfer if renal insuff worsens. (mins):25 Sepsis Event Evaluation Height, Weight, BMI Height: 6'2" Weight: 250lbs. 0.0oz. 113.464799sy; 47.18 BMI Method:Estimated Focused Exam Lactate Level 09/16/21 20:00: Lactic Acid Level 2.05*H 09/16/21 22:20: Lactic Acid Level 1.12 Exam Exam Patient acknowledged, consented, and participated in this virtual visit which was conducted using real time audio/video Vital Signs Date Time Temp Pulse Resp B/P (MAP) Pulse Ox O2 Delivery O2 Flow Rate FiO2 09/18/21 09:00 65 12 121/83 98 NIV Bilevel 30.00 09/18/21 08:00 67 10 127/92 97 NIV Bilevel 30.00 09/18/21 08:00 36.1 09/18/21 07:47 54 14 96 30.00 09/18/21 07:00 62 20 139/75 95 NIV Bilevel 30.00 09/18/21 07:00 59 09/18/21 06:00 60 19 121/73 94 NIV Bilevel 30.00 09/18/21 05:00 61 20 126/78 94 NIV Bilevel 30.00 09/18/21 04:00 NIV Bilevel 30 09/18/21 04:00 NIV Bilevel 30.00 09/18/21 04:00 59 17 113/60 94 NIV Bilevel 30.00 09/18/21 03:06 62 17 94 30.00 09/18/21 03:00 64 23 117/61 95 NIV Bilevel 30.00 09/18/21 02:00 66 11 117/51 92 NIV Bilevel 30.00 09/18/21 01:00 72 09/18/21 01:00 75 17 112/69 97 NIV Bilevel 30.00 09/18/21 00:00 NIV Bilevel 30 09/18/21 00:00 69 14 110/57 96 NIV Bilevel 30.00 09/18/21 00:00 36.2 NIV Bilevel 30.00 09/17/21 23:13 61 22 95 30.00 09/17/21 23:00 62 16 107/52 95 Nasal Cannula 5.00 09/17/21 22:00 78 18 124/69 97 Nasal Cannula 5.00 09/17/21 21:00 71 18 128/69 97 Nasal Cannula 5.00 09/17/21 20:00 70 26 114/62 95 Nasal Cannula 5.00 09/17/21 20:00 36.3 09/17/21 20:00 NIV Bilevel 30 09/17/21 19:47 36.3 09/17/21 19:33 81 17 95 30.00 09/17/21 19:00 77 15 110/51 96 Nasal Cannula 5.00 09/17/21 19:00 72 09/17/21 18:00 82 23 116/63 95 Nasal Cannula 5.00 09/17/21 17:00 71 148/79 96 NIV Bilevel 30.00 09/17/21 16:08 36.1 09/17/21 16:00 72 134/80 NIV Bilevel 30.00 09/17/21 16:00 NIV Bilevel 30 09/17/21 15:00 71 12 133/65 93 NIV Bilevel 30.00 09/17/21 14:30 96 High Flow N/C 5.00 09/17/21 14:00 56 14 100/48 96 NIV Bilevel 30.00 09/17/21 13:00 52 19 123/63 97 NIV Bilevel 30.00 09/17/21 13:00 60 09/17/21 12:00 NIV Bilevel 30 09/17/21 12:00 60 14 123/62 96 NIV Bilevel 30.00 09/17/21 11:00 59 16 113/55 96 NIV Bilevel 30.00 09/17/21 10:33 59 17 98 30.00 I & O 09/18/21 07:00 Intake Total 3190 ml Output Total 2655 ml Balance 535 ml Height & Weight Height: 6'2" Weight: 250lbs. 0.0oz. 113.058699kg; 47.18 BMI Method:Estimated General Appearance: Anxious, Chronically ill, Obese Respiratory: No Accessory Muscle Use, No Respiratory Distress Cardiovascular: Regular Rate, Rhythm Capillary Refill: Less Than 3 Seconds Gastrointestinal: normal bowel sounds, non tender Neurologic/Psychiatric: Disoriented Results Lab Laboratory Tests 09/16/21 20:00 09/17/21 04:35 09/17/21 10:15 09/18/21 05:00 Assessment/Plan Assessment/Plan See free text. Critical Care: Critically Ill Patient MARQUEZ MASTERSON MD Sep 18, 2021 10:09
[2021-09-18] MEDS ORDERED: SOD POLYSTERENE 15 GM/60 ML (KAYEXALATE) UNIT DOSE PO ONE (10:15)
[2021-09-18 10:25] LABS: CALCIUM 7.9 MG/DL (8.5-10.1); CREATININE SERUM 2.67 MG/DL (0.60-1.30); MAGNESIUM 2.4 MG/DL (1.6-2.4); PHOSPHORUS 4.8 MG/DL (2.3-4.7); POTASSIUM 5.5 MMOL/L (3.6-5.0)
[2021-09-18] MEDS ORDERED: CALCIUM CHLORIDE 1 GM/10 ML (IMS) SYR IV ONE (10:45)
[2021-09-18] MEDS ORDERED: SOD POLYSTERENE 15 GM/60 ML (KAYEXALATE) UNIT DOSE PO NR (10:45)
--- NOTE | 2021-09-18 10:58 | Discharge Summary ---
Discharge Summary Hospital Course Was the Problem List Reviewed?: Yes Problems/Dx: (1) Influenza A Status: Acute (2) JARRET (acute kidney injury) Status: Acute (3) Acute on chronic respiratory failure with hypoxemia Status: Acute (4) HTN (hypertension) Status: Acute (5) Non compliance with medical treatment Status: Acute (6) Chronic pain Status: Acute (7) Seizure disorder Status: Chronic (8) Anxiety Status: Chronic (9) Uncontrolled diabetes mellitus Status: Chronic (10) Generalized weakness Status: Acute (11) Late effects of CVA (cerebrovascular accident) Status: Acute Hospital Course Date of Admission: Sep 16, 2021 at 21:07 Admission Diagnosis : Family Physician/Provider: Cindy Ford DO Date of Discharge: 09/18/21 Discharge Diagnosis: Acute on chronic renal failure requiring transfer to nephrology, influenza A, obesity hypoventilation syndrome, prior strokes requiring half-way placement 5 years ago, hypertension, pneumonia, DKA requiring insulin drip Hospital Course: Patient had a short hospital course after he was admitted for shortness of breath and fever found to have influenza A and bacterial pneumonia so patient was placed on Tamiflu and antibiotics respectively. He remained BiPAP dependent until converted to 5 L of oxygen today. His kidney function continued to decline with hyperkalemia requiring Kayexalate and sterile water with 3 Amps of bicarb recommended by nephrology at [facility] when I reached out and transferred him to higher level care for nephrology and ICU especially considering new onset DKA requiring insulin drip and history of dialysis in 2003. Patient remained stable and had a central line placed by Dr. De due to poor venous access and he was transferred in stable condition. Labs and Pending Lab Test: Laboratory Tests 09/17/21 12:06: Glucometer 275H 09/17/21 14:20: Blood Gas Puncture Site NA, Blood Gas Patient Temperature 36.0, Arterial Blood pH 7.27*L, Arterial Blood Partial Pressure CO2 53H, Arterial Blood Partial Pressure O2 81, Arterial Blood HCO3 24, Arterial Blood Total CO2 25.5, Arterial Blood Oxygen Saturation 95, Arterial Blood Base Excess -2.5, Martin Test NA, Blood Gas Ventilator Setting NO, Blood Gas Inspired Oxygen 30% 09/17/21 15:59: Glucometer 275H 09/17/21 20:13: Glucometer 545*H 09/17/21 20:15: Glucometer 501*H 09/18/21 05:00: White Blood Count 8.4, Red Blood Count 3.72L, Hemoglobin 9.8L, Hematocrit 33L, Mean Corpuscular Volume 89, Mean Corpuscular Hemoglobin 26, Mean Corpuscular Hemoglobin Concent 30L, Red Cell Distribution Width 19.8H, Platelet Count 159, Mean Platelet Volume , Immature Granulocyte % (Auto) 0, Neutrophils (%) (Auto) 87H, Lymphocytes (%) (Auto) 7L, Monocytes (%) (Auto) 5, Eosinophils (%) (Auto) 0, Basophils (%) (Auto) 0, Neutrophils # (Auto) 7.4, Lymphocytes # (Auto) 0.6L, Monocytes # (Auto) 0.4, Eosinophils # (Auto) 0.0, Basophils # (Auto) 0.0, Immature Granulocyte # (Auto) 0.0, Percent Immature Platelet Fraction 7.0, Sodium Level 132L, Potassium Level 6.2H, Chloride Level 104, Carbon Dioxide Level 17L, Anion Gap 11, Blood Urea Nitrogen 66H, Creatinine 2.88H, Estimat Glomerular Filtration Rate 25, BUN/Creatinine Ratio 23, Glucose Level 630*H, Calcium Level 7.7L, Corrected Calcium 8.4L, Phosphorus Level 4.6, Magnesium Level 2.4, Total Bilirubin 0.2, Aspartate Amino Transf (AST/SGOT) 26, Alanine Aminotransferase (ALT/SGPT) 17, Alkaline Phosphatase 53, Total Protein 6.6, Albumin 3.1L, Vancomycin Level Trough 11.4 09/18/21 06:02: Blood Gas Puncture Site RIGHT RADIAL, Blood Gas Patient Temperature 36.4, Arterial Blood pH 7.27*L, Arterial Blood Partial Pressure CO2 49H, Arterial Blood Partial Pressure O2 79, Arterial Blood HCO3 22L, Arterial Blood Total CO2 23.6, Arterial Blood Oxygen Saturation 95, Arterial Blood Base Excess -4.0L, Martin Test YES-POS, Blood Gas Ventilator Setting NO, Blood Gas Inspired Oxygen 30% BIPAP 09/18/21 08:11: Glucometer 476*H 09/18/21 09:35: Glucometer 512*H 09/18/21 10:03: Sodium Level 137, Potassium Level 5.5H, Chloride Level 105, Carbon Dioxide Level 17L, Anion Gap 15H, Blood Urea Nitrogen 65H, Creatinine 2.67H, Estimat Glomerular Filtration Rate 27, BUN/Creatinine Ratio 24, Glucose Level 593*H, Calcium Level 7.9L, Phosphorus Level 4.8H, Magnesium Level 2.4 09/18/21 10:39: Beta-Hydroxybutyrate (Chem panel) 0.15 09/18/21 10:45: Glucometer 488*H Microbiology 09/16/21 MRSA Screen - Final, Complete MRSA not isolated 09/16/21 Urine Culture - Preliminary, Resulted NO GROWTH 09/16/21 Blood Culture - Preliminary, Resulted No growth Home Meds Active Reported Gabapentin 800 Mg Tablet 800 Mg PO TID Ondansetron Odt (Ondansetron) 4 Mg Tab.rapdis 4 Mg PO Q8H PRN Tylenol (Acetaminophen) 325 Mg Tablet 650 Mg PO Q6H PRN Calcium Carbonate 500 Mg Tablet 500 Mg PO Q6H PRN Tramadol HCl 50 Mg Tablet 50 Mg PO Q8H PRN Guaifenesin-Dm 100-10 mg/5 ml (Guaifenesin/Dextromethorphan) 5 Ml Liquid 10 Ml PO Q4H PRN Miralax (Polyethylene Glycol 3350) 17 Gm Powd.pack 17 Gm PO Q12H PRN Metolazone 2.5 Mg Tablet 2.5 Mg PO DAILY PRN IF WEIGHT IS GAIN IS MORE THAN 3LBS TAKE PRN Meclizine HCl 25 Mg Tablet 25 Mg PO DAILY PRN Docusate Sodium 100 Mg Capsule 100 Mg PO DAILY PRN Loperamide (Loperamide HCl) 2 Mg Tablet 2 Mg PO Q1H PRN Albuterol Sulfate 2.5 Mg/0.5 Ml Vial.neb 2.5 Mg INH Q8H PRN Metoprolol Tartrate 100 Mg Tablet 100 Mg PO BID HOLD IF PULSE IS LESS THAN 50 AND IF BLOOD PRESSURE LESS THAN 100/50 Vitamin D2 (Ergocalciferol (Vitamin D2)) 1,250 Mcg Capsule 1,250 Mcg PO MONDAY Melatonin 3 Mg Tablet 3 Mg PO HS Lisinopril 40 Mg Tablet 40 Mg PO DAILY Hydrochlorothiazide 25 Mg Tablet 25 Mg PO DAILY Flintstones with Iron Tab Chew (Pedi Mv No.79/Ferrous Fumarate) 18 Mg Tab.chew 18 Mg PO DAILY Aspirin EC (Aspirin) 81 Mg Tablet.dr 81 Mg PO DAILY Amlodipine Besylate 10 Mg Tablet 10 Mg PO DAILY Flomax (Tamsulosin HCl) 0.4 Mg Cap 0.4 Mg PO DAILY Spiriva Respimat 1.25MCG/ACTUATION (Tiotropium [place]) 4 Gm Mist.inhal 2 Puff IH DAILY Metformin HCl 1,000 Mg Tablet 1,000 Mg PO BID Humalog Kwikpen (Insulin Lispro) 200 Unit/1 Ml Insuln.pen 40 Unit SQ TID Gabapentin 800 Mg Tablet 1,200 Mg PO HS TAKES 1 (800MG) TABLETS Furosemide 20 Mg Tablet 60 Mg PO DAILY TAKES 3 (20MG) TABLETS Duloxetine HCl 40 Mg Capsule.dr 40 Mg PO DAILY Alphagan P (Brimonidine Tartrate) 5 Ml Drops 1 Drop OU BID Rosuvastatin Calcium 40 Mg Tablet 40 Mg PO DAILY Eliquis (Apixaban) 5 Mg Tablet 5 Mg PO BID Aripiprazole 10 Mg Tablet 10 Mg PO DAILY Levemir Flextouch (Insulin Detemir) 100 Unit/1 Ml Insuln.pen 65 Units SQ BID Divalproex Sodium 250 Mg Tablet.dr 250 Mg PO TID Assessment/Pt Instructions Transfer to [facility] Discharge Planning: <30 minutes discharge planning Discharge Instructions Discharge Diet: ADA Diet Activity as Tolerated: Yes Discharge Physical Examination Vital Signs Vital Signs Date Time Temp Pulse Resp B/P (MAP) Pulse Ox O2 Delivery O2 Flow Rate FiO2 09/18/21 10:00 67 20 142/93 99 NIV Bilevel 30.00 09/18/21 08:00 36.1 09/18/21 04:00 30 General Appearance: Chronically ill, Mild Distress, Obese Respiratory: Decreased Breath Sounds Cardiovascular: Regular Rate, Rhythm Allergies: Coded Allergies: penicillin V (Unverified Allergy, Unknown, 10/01/08) erythromycin base (Unverified Adverse Reaction, Mild, VOMITING, 03/18/13) Discharge Summary Date of Admission Sep 16, 2021 at 21:07 Date of Discharge Discharge Date: Sep 18, 2021 Admission Diagnosis Assessment: Acute respiratory failure now BiPAP dependent Obesity hypoventilation syndrome presumed Super morbid obesity with 48 BMI Chronic kidney disease Hypertension Seizure disorder CVA history CAD Plan: BiPAP Antibiotics Tamiflu Anticoagulation Discharge Diagnosis (1) Influenza A Status: Acute (2) JARRET (acute kidney injury) Status: Acute (3) Acute on chronic respiratory failure with hypoxemia Status: Acute (4) HTN (hypertension) Status: Acute (5) Non compliance with medical treatment Status: Acute (6) Chronic pain Status: Acute (7) Seizure disorder Status: Chronic (8) Anxiety Status: Chronic (9) Uncontrolled diabetes mellitus Status: Chronic (10) Generalized weakness Status: Acute (11) Late effects of CVA (cerebrovascular accident) Status: Acute BAYRON NEGRETE DO Sep 18, 2021 10:58
[2021-09-18] MEDS: RT--FLUTICASONE/SALMETEROL 113-14 (AIRDUO RespiCLICK) IH SCH (11:19)
[2021-09-18] MEDS ORDERED: SODIUM BICARBONATE 8.4% VIAL 150 MEQ in WATER FOR INJECTION, STERILE 1,000 ML IV SCH (12:00)
[2021-09-18] MEDS ORDERED: SOD POLYSTERENE 15 GM/60 ML (KAYEXALATE) UNIT DOSE PO SCH (12:00)
[2021-09-18 14:41] LABS: POTASSIUM 4.9 MMOL/L (3.6-5.0)
[2021-09-18 14:42] LABS: CALCIUM 8.8 MG/DL (8.5-10.1)
[2021-09-18 14:46] LABS: CREATININE SERUM 2.62 MG/DL (0.60-1.30)
[2021-09-18 15:34] VITALS: BP 177/87
[2021-09-18] MEDS ORDERED: CEFEPIME 1,000 MG/NS 50 ML IVPB IV SCH ×2 (21:00)
--- NOTE | 2021-09-18 21:23 | OPERATIVE REPORT ---
DATE OF SERVICE: 09/18/2021 PREOPERATIVE DIAGNOSIS: Poor venous access. POSTOPERATIVE DIAGNOSIS: Poor venous access. PROCEDURE: Attempted left femoral central line placement, ultrasound-guided and ultrasound-guided right femoral vein central line placement. SURGEON: Biju De DO ANESTHESIA: 1% lidocaine. ESTIMATED BLOOD LOSS: Minimal. COMPLICATIONS: None. INDICATIONS: The patient is a 56-year-old male needing vascular access. Dr. Zeng requested that a central line be placed. The patient is on anticoagulation, therefore, I discussed we will place it in the groin. DESCRIPTION OF PROCEDURE: The patient was informed and gave consent to proceed. The ultrasound was used to isolate the left femoral vein. A 3 mL of 1% lidocaine was used to anesthetize the area. Ultrasound was used to guide the needle, which was then able to be accessed into the left femoral vein. Dark nonpulsatile blood was withdrawn. Guidewire was attempted to be inserted and unable to be advanced. The vein was then re-accessed, dark nonpulsatile blood was withdrawn. The wire was attempted again to be advanced without any success and cause significant kinking of the wire. Therefore, at this time the right groin was then prepped and draped in sterile fashion. Ultrasound was used to isolate the right femoral vein. Local anesthetic was infiltrated in this area and the right vein was then accessed, dark nonpulsatile blood was withdrawn. This was accessed under visualization with ultrasound. The guidewire was inserted through the needle and the needle was then removed. An #11 blade scalpel was used to make a small skin incision and a dilator was then advanced over the guidewire and removed. The [place] catheter was advanced over the wire and the wire was removed. All ports were accessed and flushed without difficulty. The catheter was then secured with 3-0 silk suture. The area was then washed and dried and sterile bandage was applied. The patient tolerated procedure well without any complications. Job ID: [id number] DocumentID: [id number] Dictated Date: 09/18/2021 20:14:23 Wire Loop Machine Operator Date: 09/18/2021 21:21:59 Dictated By: BIJU DE DO
--- NOTE | 2021-09-19 15:37 | Consultation - Surgery ---
History of Present Illness History of Present Illness Patient Consulted On(ivet/time) 09/18/21 11:32 Date Seen by Provider: Sep 18, 2021 Time Seen by Provider: 11:32 History of Present Illness Consult requested by Dr. Zeng for poor venous access. Patient is a 56-year-old male who was admitted due to shortness of breath he was found to have influenza A and bacterial pneumonia. Patient breathing has slightly improved but states that his kidney function has continued to worsen through his hospital stay. Patient states that he is being transferred over to [facility]. But he is needing central venous access. Patient states that he is diabetic. He is not having any abdominal pain at this time. His breathing he states has gotten little bit better. He has no other complaints. Patient notes that he is on anticoagulation. Denies any nausea vomiting fever sweats chills shortness of breath or chest pain at this time. Allergies and Home Medications Allergies Coded Allergies: penicillin V (Unverified Allergy, Unknown, 10/01/08) erythromycin base (Unverified Adverse Reaction, Mild, VOMITING, 03/18/13) Patient Home Medication List Home Medication List Reviewed: Yes Acetaminophen (Tylenol) 325 Mg Tablet, 650 MG PO Q6H PRN for PAIN-MILD (1-4), (Reported) Entered as Reported by: KALEN ALBERTO on 09/17/211410 Last Action: Reviewed Albuterol Sulfate (Albuterol Sulfate) 2.5 Mg/0.5 Ml Vial.neb, 2.5 MG INH Q8H PRN for SHORTNESS OF BREATH, (Reported) Entered as Reported by: KALEN ALBERTO on 09/17/211410 Last Action: Reviewed Amlodipine Besylate (Amlodipine Besylate) 10 Mg Tablet, 10 MG PO DAILY, (Reported) Entered as Reported by: KALEN ALBERTO on 09/17/211410 Last Action: Reviewed Apixaban (Eliquis) 5 Mg Tablet, 5 MG PO BID, (Reported) Entered as Reported by: JIM GRADY on 12/03/151004 Last Action: Reviewed Aripiprazole (Aripiprazole) 10 Mg Tablet, 10 MG PO DAILY, (Reported) Entered as Reported by: JIM GRADY on 12/03/151004 Last Action: Reviewed Aspirin (Aspirin EC) 81 Mg Tablet.dr, 81 MG PO DAILY, (Reported) Entered as Reported by: KALEN ALBERTO on 09/17/211410 Last Action: Reviewed Brimonidine Tartrate (Alphagan P) 5 Ml Drops, 1 DROP OU BID, (Reported) Entered as Reported by: KERA FELIPE on 02/22/211414 Last Action: Reviewed Calcium Carbonate (Calcium Carbonate) 500 Mg Tablet, 500 MG PO Q6H PRN for HEARTBURN, (Reported) Entered as Reported by: KALEN ALBERTO on 09/17/211410 Last Action: Reviewed Divalproex Sodium (Divalproex Sodium) 250 Mg Tablet.dr, 250 MG PO TID, (Report ed) Entered as Reported by: JIM GRADY on 12/03/151004 Last Action: Reviewed Docusate Sodium (Docusate Sodium) 100 Mg Capsule, 100 MG PO DAILY PRN for CONSTIPATION-1ST LINE, (Reported) Entered as Reported by: KALEN ALBERTO on 09/17/211410 Last Action: Reviewed Duloxetine HCl (Duloxetine HCl) 40 Mg Capsule.dr, 40 MG PO DAILY, (Reported) Entered as Reported by: KERA FELIPE on 02/22/211414 Last Action: Reviewed Ergocalciferol (Vitamin D2) (Vitamin D2) 1,250 Mcg Capsule, 1,250 MCG PO MONDAY, (Reported) Entered as Reported by: KALEN ALBERTO on 09/17/211410 Last Action: Reviewed Furosemide (Furosemide) 20 Mg Tablet, 60 MG PO DAILY, (Reported) Entered as Reported by: KERA FELIPE on 02/22/211414 Last Action: Reviewed Gabapentin (Gabapentin) 800 Mg Tablet, 1,200 MG PO HS, (Reported) Entered as Reported by: KERA FELIPE on 02/22/211414 Last Action: Reviewed Gabapentin (Gabapentin) 800 Mg Tablet, 800 MG PO TID, (Reported) Entered as Reported by: KALEN ALBERTO on 09/17/211421 Last Action: Reviewed Guaifenesin/Dextromethorphan (Guaifenesin-Dm 100-10 mg/5 ml) 5 Ml Liquid, 10 ML PO Q4H PRN for COUGH, (Reported) Entered as Reported by: KALEN ALBERTO on 09/17/211410 Last Action: Reviewed Hydrochlorothiazide (Hydrochlorothiazide) 25 Mg Tablet, 25 MG PO DAILY, (Reported) Entered as Reported by: KALEN ALBERTO on 09/17/211410 Last Action: Reviewed Insulin Detemir (Levemir Flextouch) 100 Unit/1 Ml Insuln.pen, 65 UNITS SQ BID, (Reported) Entered as Reported by: JIM GRADY on 12/03/15 100 Last Action: Reviewed Insulin Lispro (Humalog Kwikpen) 200 Unit/1 Ml Insuln.pen, 40 UNIT SQ TID, (Reported) Entered as Reported by: KERA FELIPE on 02/22/211414 Last Action: Reviewed Lisinopril (Lisinopril) 40 Mg Tablet, 40 MG PO DAILY, (Reported) Entered as Reported by: KALEN ALBERTO on 09/17/211410 Last Action: Reviewed Loperamide HCl (Loperamide) 2 Mg Tablet, 2 MG PO Q1H PRN for DIARRHEA, (Reported) Entered as Reported by: KALEN ALBERTO on 09/17/211410 Last Action: Reviewed Meclizine HCl (Meclizine HCl) 25 Mg Tablet, 25 MG PO DAILY PRN for VERTIGO, (Reported) Entered as Reported by: KALEN ALBERTO on 09/17/211410 Last Action: Reviewed Melatonin (Melatonin) 3 Mg Tablet, 3 MG PO HS, (Reported) Entered as Reported by: KALEN ALBERTO on 09/17/211410 Last Action: Reviewed Metformin HCl (Metformin HCl) 1,000 Mg Tablet, 1,000 MG PO BID, (Reported) Entered as Reported by: KERA FELIPE on 02/22/211414 Last Action: Reviewed Metolazone (Metolazone) 2.5 Mg Tablet, 2.5 MG PO DAILY PRN for WEIGHT GAIN, (Reported) Entered as Reported by: KALEN ALBERTO on 09/17/211410 Last Action: Reviewed Metoprolol Tartrate (Metoprolol Tartrate) 100 Mg Tablet, 100 MG PO BID, (Reported) Entered as Reported by: KALEN ALBERTO on 09/17/211410 Last Action: Reviewed Ondansetron (Ondansetron Odt) 4 Mg Tab.rapdis, 4 MG PO Q8H PRN for NAUSEA/VOMITING-1ST LINE, (Reported) Entered as Reported by: KALEN ALBERTO on 09/17/211410 Last Action: Reviewed Pedi Mv No.79/Ferrous Fumarate (Flintstones with Iron Tab Chew) 18 Mg Tab.chew, 18 MG PO DAILY, (Reported) Entered as Reported by: KALEN ALBERTO on 09/17/211410 Last Action: Reviewed Polyethylene Glycol 3350 (Miralax) 17 Gm Powd.pack, 17 GM PO Q12H PRN for CONSTIPATION-2ND LINE, (Reported) Entered as Reported by: KALEN ALBERTO on 09/17/211410 Last Action: Reviewed Rosuvastatin Calcium (Rosuvastatin Calcium) 40 Mg Tablet, 40 MG PO DAILY, (Reported) Entered as Reported by: KERA FELIPE on 02/22/211414 Last Action: Reviewed Tamsulosin HCl (Flomax) 0.4 Mg Cap, 0.4 MG PO DAILY, (Reported) Entered as Reported by: KERA FELIPE on 02/22/211414 Last Action: Reviewed Tiotropium Ava (Spiriva Respimat 1.25MCG/ACTUATION) 4 Gm Mist.inhal, 2 PUFF IH DAILY, (Reported) Entered as Reported by: KERA FELIPE on 02/22/211414 Last Action: Reviewed Tramadol HCl (Tramadol HCl) 50 Mg Tablet, 50 MG PO Q8H PRN for PAIN-MODERATE (5- 7), (Reported) Entered as Reported by: KALEN ALBERTO on 09/17/211410 Last Action: Reviewed Discontinued Medications Amlodipine Besylate (Amlodipine Besylate) 10 Mg Tablet, 10 MG PO DAILY Discontinued Reason: Duplicate Order Prescribed by: KERA CHAPMAN on 12/21/15 1233 Last Action: Discontinued Aspirin (Aspirin) 81 Mg Tab.chew, 81 MG PO DAILY, (Reported) Discontinued Reason: Duplicate Order Entered as Reported by: KERA FELIPE on 02/22/211414 Last Action: Discontinued Dulaglutide (Trulicity) 1.5 Mg/0.5 Ml Pen.injctr, 1.5 MG SQ DAILY, (Reported) Discontinued Reason: No Longer Taking Entered as Reported by: KERA FELIPE on 02/22/211414 Last Action: Discontinued Fluticasone/Vilanterol (Breo Ellipta 100-25 Mcg INH) 1 Each Blst.w.dev, 1 EACH IH DAILY, (Reported) Discontinued Reason: No Longer Taking Entered as Reported by: KERA FELIPE on 02/22/21 141 Last Action: Discontinued Lisinopril (Lisinopril) 40 Mg Tablet, 40 MG PO DAILY Discontinued Reason: Duplicate Order Prescribed by: KERA CHAPMAN on 12/21/15 1233 Last Action: Discontinued Metoprolol Succinate (Metoprolol Succinate) 100 Mg Tab.er.24h, 100 MG PO DAILY, (Reported) Discontinued Reason: No Longer Taking Entered as Reported by: JIM GRADY on 12/03/15 1005 Last Action: Discontinued Potassium Chloride (Potassium Chloride) 10 Meq Tab.er.prt, 10 MEQ PO DAILY, (Reported) Discontinued Reason: No Longer Taking Entered as Reported by: KERA FELIPE on 02/22/211414 Last Action: Discontinued Past [id number] Hx Patient Social History Smoking Status: Current Everyday Smoker Type Used: Cigarettes 2nd Hand Smoke Exposure: No Recent Hopitalizations: No Alcohol Use?: No Have you traveled recently?: No Immunizations Up To Date Date of Pneumonia Vaccine: Mar 20, 2013 Seasonal Allergies Seasonal Allergies: No Surgeries History of Surgeries: Yes Surgeries: Cardiac, Dialysis, Orthopedic, Renal, Vascular Surgery Respiratory History of Respiratory Disorde: Yes (COMMUNITY ACQUIRED PNEUMONIA) Respiratory Disorders: Asthma, Pneumonia Cardiovascular History of Cardiac Disorders: Yes (PAD) Cardiac Disorders: Coronary Artery Disease, Deep Vein Thrombosis, Heart Attack, High Cholesterol, Hypertension, Irregular Heartbeat, Peripheral Vascular Neurological History of Neurological Disord: Yes (BRAIN INJURY CAUSES EMOTIONS TO CHANGE . LEFT SIDE WEAKNESS) Neurological Disorders: Concussion, Headaches /Migraines, Neuropathy, Seizure Disorder, Stroke Reproductive System Hx Reproductive Disorders: No Sexually Transmitted Disease: No HIV/AIDS: No Genitourinary Genitourinary Disorders: Kidney Stones, Renal Failure Gastrointestinal History of Gastrointestinal Di: Yes Gastrointestinal Disorders: Colitis, Gastroesophageal Reflux, Diverticulosis, Polyps, Hiatal Hernia Musculoskeletal History of Musculoskeletal Dis: Yes (WEAKNESS IN LEGS FROM STROKE ) Musculoskeletal Disorders: Arthritis, Fibromyalgia, Rheumatoid Arthritis, Chronic Back Pain Endocrine History of Endocrine Disorders: Yes Endocrine Disorders: Diabetes, Insulin dep HEENT HEENT Disorders: Glaucoma Loss of Vision: Bilateral Hearing Impairment: Denies Cancer History of Cancer: No Psychosocial History of Psychiatric Problem: Yes Behavioral Health Disorders: Sleep Difficulties, Bipolar, Depression Integumentary History of Skin or Integumenta: No Blood Transfusions History of Blood Disorders: Yes (ANEMIA, BLOOD CLOTS ) Reviewed Nursing Assessment Reviewed/Agree w Nursing PMH: Yes Family Medical History Significant Family History: Heart Disease, Diabetes, Hypertension Family Medial History: Cardiovascular disease 19 MOTHER G8 BROTHER Colon cancer 19 MOTHER Completed stroke 19 FATHER Dementia 19 FATHER Diabetes mellitus 19 MOTHER FHx: macular degeneration 19 FATHER Myocardial infarction 19 MOTHER Review of Systems-General Constitutional: No chills, No diaphoresis EENTM: No blurred vision, No double vision Respiratory: dyspnea on exertion, short of breath Cardiovascular: No chest pain, No palpitations Gastrointestinal: No abdominal pain, No nausea, No vomiting Genitourinary: No decreased output, No discharge Musculoskeletal: No back pain, No joint pain Skin: No change in color, No change in hair/nails Psychiatric/Neurological: Denies Anxiety, Denies Depressed, Denies Emotional Problems All Other Systems Reviewed Negative Unless Noted: Yes (Negative excepted noted.) Physical Exam-General Problems Physical Exam Vital Signs Vital Signs - First Documented 09/16/21 09/16/21 19:25 23:46 Temp 35.2 Pulse 62 Resp 24 B/P (MAP) 140/69 (92) Pulse Ox 98 O2 Delivery Nasal Cannula O2 Flow Rate 5.00 FiO2 30 Capillary Refill : Less Than 3 Seconds General Appearance: no apparent distress, obese HEENT: PERRL/EOMI, normal ENT inspection Neck: non-tender, supple Respiratory: chest non-tender, no respiratory distress, no accessory muscle use Cardiovascular: no JVD, irregularly irregular Gastrointestinal: non tender, soft Rectal: deferred Back: no CVA tenderness, no vertebral tenderness Extremities: non-tender, swelling Neurologic/Psychiatric: alert, normal mood/affect, oriented x 3 Skin: normal color, warm/dry Lymphatic: no adenopathy Data Review Labs Microbiology 09/17/21 Blood Culture - Preliminary, Resulted No growth 09/16/21 MRSA Screen - Final, Complete MRSA not isolated 09/16/21 Urine Culture - Final, Complete NO GROWTH Assessment/Plan Assessment/Plan Assessment/Plan Poor venous access Influenza A Bacterial pneumonia Shortness of breathimproving Chronic kidney disease Long-term anticoagulation Patient was discussed risk and benefits of having central line placed. Due to being on anticoagulation status area would be to put femoral line in. Patient understands and wishes to proceed. We will proceed with ultrasound-guided central line placement. Patient being transferred to [facility] for nephrology consultation needs. BIJU MACKENZIE DO Sep 19, 2021 15:37
== END 2021-09-18 15:33 | disposition short-term general hospital (02) | DRG 193 ==
LOC: EDUNIT# 19:27 → ER 19:28 → ICU 21:07
PROVIDERS: ADMIT Internal Medicine; ATTEND Internal Medicine
PROC: 5A09457 Assistance with Respiratory Ventilation, 24-96 Consecutive Hours, Continuous Positive Airway Pressure (ICD-10-PCS; 2021-09-16)
PROC: 02HV33Z Insertion of Infusion Device into Superior Vena Cava, Percutaneous Approach (ICD-10-PCS; principal; 2021-09-18)
DX: J10.1 Influenza due to other identified influenza virus with other respiratory manifestations (principal); E11.10 Type 2 diabetes mellitus with ketoacidosis without coma; J96.21 Acute and chronic respiratory failure with hypoxia; J96.22 Acute and chronic respiratory failure with hypercapnia; E66.2 Morbid (severe) obesity with alveolar hypoventilation; N17.9 Acute kidney failure, unspecified; J44.1 Chronic obstructive pulmonary disease with (acute) exacerbation; J44.0 Chronic obstructive pulmonary disease with (acute) lower respiratory infection; Z68.42 Body mass index [BMI] 45.0-49.9, adult; J15.9 Unspecified bacterial pneumonia; E87.5 Hyperkalemia; Z91.14 Patient's other noncompliance with medication regimen; G89.29 Other chronic pain; G40.909 Epilepsy, unspecified, not intractable, without status epilepticus; F41.9 Anxiety disorder, unspecified; E11.22 Type 2 diabetes mellitus with diabetic chronic kidney disease; N18.9 Chronic kidney disease, unspecified; I12.9 Hypertensive chronic kidney disease with stage 1 through stage 4 chronic kidney disease, or unspecified chronic kidney disease; Z86.73 Personal history of transient ischemic attack (TIA), and cerebral infarction without residual deficits; Z86.718 Personal history of other venous thrombosis and embolism; I25.10 Atherosclerotic heart disease of native coronary artery without angina pectoris; E11.51 Type 2 diabetes mellitus with diabetic peripheral angiopathy without gangrene; F31.9 Bipolar disorder, unspecified; Z20.822 Contact with and (suspected) exposure to COVID-19; G43.909 Migraine, unspecified, not intractable, without status migrainosus; F17.210 Nicotine dependence, cigarettes, uncomplicated; I25.2 Old myocardial infarction; E78.00 Pure hypercholesterolemia, unspecified; K57.90 Diverticulosis of intestine, part unspecified, without perforation or abscess without bleeding; M79.7 Fibromyalgia; K21.9 Gastro-esophageal reflux disease without esophagitis; M54.9 Dorsalgia, unspecified; H40.9 Unspecified glaucoma; I48.0 Paroxysmal atrial fibrillation; Z79.82 Long term (current) use of aspirin; Z79.4 Long term (current) use of insulin; Z79.899 Other long term (current) drug therapy
CPT/HCPCS: 36415; 51702; 71045; 80048; 80053; 80202; 81000; 81002; 82010; 82805; 82947; 83605; 83735; 83880; 84100; 84145; 84484; 85007; 85025; 85027; 85379; 85610; 85730; 86141; 87040; 87081; 87088; 87636; 93005; 94640; 94660; 99291

== ENCOUNTER 2021-09-27 08:07 | Outpatient (RCR) | payer MEDICARE, MEDICAID ==
[2021-09-16 08:20] VITALS: BP 132/60
[2021-09-16] MEDS: IRON SUCROSE 200 MG/10 ML (VENOFER) VIAL IV SCH (08:46)
[~2021-09-27 08:07] MED LIST changes: +ACET325T38 PO; +ALB0.5V INH; +CALC500T64 PO; +DOCU100C37 PO; +ERGO1250 PO; +GUAI5LIQ11 PO; +HYDR25TA4 PO; +LOPE2TAB34 PO; +MECL-149 PO; +MELA3TAB39 PO; +METO100T12 PO; +METO2.5T PO; +ONDA4TAB11 PO; +PEDI18TA2 PO; +POLY17PO6 PO; +TRAM50TA3 PO
[2021-09-27 08:20] VITALS: BP 142/78
[2021-09-27] MEDS: IRON SUCROSE 200 MG/10 ML (VENOFER) VIAL IV SCH (08:32)
== END 2021-09-27 10:00 | disposition home or self-care (01) ==
LOC: SDC 08:07
PROVIDERS: ATTEND Internal Medicine Nephrology
DX: D50.8 Other iron deficiency anemias (principal)
CPT/HCPCS: 96365

== ENCOUNTER 2021-11-30 13:33 | Inpatient (IN) | payer MEDICARE, MEDICAID ==
[~2021-11-30] VITALS: Ht 183 cm; Wt 175.0 kg
[~2021-11-30 13:33] MED LIST changes: +BUDE10.2 IH; +DICL100G13 TP; +DOXA2TAB2 PO; +EMPA25TA PO; +GABA-490 PO; +GUAI237L82 PO; +MULT-298 PO; +PED18TAB2 PO; +TBR.3OP51 OU
--- NOTE | 2021-11-30 14:10 | ED General ---
General Chief Complaint: General Problems/Pain Stated Complaint: LOWER EXT SWELLING Nursing Triage Note: PT TO ER BY [facility] WITH C/O INCREASED LE AND SCROTAL SWELLING THAT STARTED YESTERDAY (TALON CHAWLA) History of Present Illness Date Seen by Provider: November 30, 2021 Time Seen by Provider: 13:50 Initial Comments 56 year old male presents today [facility] for acute scrotal and bilateral leg pain. He reports that his pain began yesterday and that it felt like he was kicked by a horse at that time. The pain has since spread from his scrotum and into both of his legs. He describes the pain as an aching pain and rates it as a 9/10. He denies sharp stabbing pains that originate in his back and go down his legs as well as numbness or acute changes in strength of his legs. Does have chronic left-sided weakness due to history of prior stroke. (TALON CHAWLA) Timing/Duration: 1-2 Days Severity: Moderate, Severe Associated Systoms: No Chest Pain, No Cough, No Fever/Chills, No Nausea/Vomiting; Shortness of Air; No Weakness (MEMO MELO MD) Allergies and Home Medications Allergies Coded Allergies: penicillin V (Unverified Allergy, Unknown, 10/01/08) erythromycin base (Unverified Adverse Reaction, Mild, VOMITING, 03/18/13) Patient Home Medication List Home Medication List Reviewed: Yes (MEMO MELO MD) Acetaminophen (Tylenol) 325 Mg Tablet, 650 MG PO Q6H PRN for PAIN-MILD (1-4), (Reported) Entered as Reported by: KALEN ALBERTO on 09/17/211410 Albuterol Sulfate (Albuterol Sulfate) 2.5 Mg/0.5 Ml Vial.neb, 2.5 MG INH Q8H PRN for SHORTNESS OF BREATH, (Reported) Entered as Reported by: KALEN ALBERTO on 09/17/211410 Amlodipine Besylate (Amlodipine Besylate) 10 Mg Tablet, 10 MG PO DAILY, (Reported) Entered as Reported by: KALEN ALBERTO on 09/17/211410 Apixaban (Eliquis) 5 Mg Tablet, 5 MG PO BID, (Reported) Entered as Reported by: JIM GRADY on 12/03/15 1005 Aripiprazole (Aripiprazole) 10 Mg Tablet, 10 MG PO DAILY, (Reported) Entered as Reported by: JIM GRADY on 12/03/15 1005 Aspirin (Aspirin EC) 81 Mg Tablet.dr, 81 MG PO DAILY, (Reported) Entered as Reported by: KALEN ALBERTO on 09/17/21 1411 Brimonidine Tartrate (Alphagan P) 5 Ml Drops, 1 DROP OU BID, (Reported) Entered as Reported by: KERA FELIPE on 02/22/21 1415 Budesonide/Formoterol Fumarate (Symbicort 160-4.5 Mcg Inhaler) 160 Mcg-4.5 Mcg/Actuation Hfa.aer.ad, 2 PUFF IH BID, (Reported) Entered as Reported by: RASTA SANCHES on 11/22/21 1202 Calcium Carbonate (Calcium Carbonate) 500 Mg Tablet, 500 MG PO Q6H PRN for HEARTBURN, (Reported) Entered as Reported by: KALEN ALBERTO on 09/17/21 141 Diclofenac Sodium (Diclofenac Sodium) 1 % Gel..gram., 100 GM TP Q4H PRN for PAIN-MODERATE (5-7), (Reported) Entered as Reported by: OSMANY QUEZADA on 11/20/21 1600 Divalproex Sodium (Divalproex Sodium) 250 Mg Tablet.dr, 250 MG PO TID, (Reported) Entered as Reported by: JIM GRADY on 12/03/15 1005 Docusate Sodium (Docusate Sodium) 100 Mg Capsule, 100 MG PO DAILY PRN for CONSTIPATION-1ST LINE, (Reported) Entered as Reported by: KALEN ALBERTO on 09/17/21 1411 Doxazosin Mesylate (Doxazosin Mesylate) 2 Mg Tablet, 2 MG PO HS Prescribed by: BAYRON NEGRETE on 11/23/21 0950 Duloxetine HCl (Duloxetine HCl) 40 Mg Capsule., 40 MG PO DAILY, (Reported) Entered as Reported by: KERA FELIPE on 02/22/21 1415 Empagliflozin (Jardiance) 25 Mg Tablet, 25 MG PO DAILY, (Reported) Entered as Reported by: OSMANY QUEZADA on 11/20/21 1544 Furosemide (Furosemide) 20 Mg Tablet, 60 MG PO DAILY, (Reported) Entered as Reported by: KERA FELIPE on 02/22/21 141 Gabapentin (Gabapentin) 800 Mg Tablet, 800 MG PO TID, (Reported) Entered as Reported by: KALEN ALBERTO on 09/17/21 142 Gabapentin (Gabapentin) 400 Mg Capsule, 400 MG PO HS, (Reported) Entered as Reported by: RASTA SANCHES on 11/22/21 1156 Guaifenesin/Dextromethorphan (Guaifenesin-Dm 100-10 mg/5 ml) 5 Ml Liquid, 10 ML PO Q4H PRN for COUGH, (Reported) Entered as Reported by: KALEN ALBERTO on 09/17/21 141 Insulin Detemir (Levemir Flextouch) 100 Unit/1 Ml Insuln.pen, 25 UNITS SQ BID Prescribed by: BAYRON NEGRETE on 11/23/21951 Insulin Lispro (Humalog Kwikpen) 200 Unit/1 Ml Insuln.pen, 20 UNIT SQ TID Prescribed by: BAYRON NEGRETE on 11/23/21951 Loperamide HCl (Loperamide) 2 Mg Tablet, 2 MG PO Q1H PRN for DIARRHEA, (Reported) Entered as Reported by: KALEN ALBERTO on 09/17/211410 Meclizine HCl (Meclizine HCl) 25 Mg Tablet, 25 MG PO DAILY PRN for VERTIGO, (Reported) Entered as Reported by: KALEN ALBERTO on 09/17/211410 Melatonin (Melatonin) 3 Mg Tablet, 3 MG PO HS, (Reported) Entered as Reported by: KALEN ALBERTO on 09/17/21 141 Metoprolol Tartrate (Metoprolol Tartrate) 100 Mg Tablet, 100 MG PO BID, (Reported) Entered as Reported by: KALEN ALBERTO on 09/17/21 141 Ondansetron (Ondansetron Odt) 4 Mg Tab.rapdis, 4 MG PO Q8H PRN for NAUSEA/VOMITING-1ST LINE, (Reported) Entered as Reported by: KALEN ALBERTO on 09/17/21 141 Ped Multivit #43/Iron Fumarate (Flintstones Complete Chew Tab) 18 Mg Iron Tab.chew, 18 MG PO DAILY, (Reported) Entered as Reported by: RASTA SANCHES on 11/22/21 1155 Polyethylene Glycol 3350 (Miralax) 17 Gm Powd.pack, 17 GM PO Q12H PRN for CONSTIPATION-2ND LINE, (Reported) Entered as Reported by: KALEN ALBERTO on 09/17/21 1411 Rosuvastatin Calcium (Rosuvastatin Calcium) 40 Mg Tablet, 40 MG PO DAILY, (Reported) Entered as Reported by: KERA FELIPE on 02/22/21 1415 Tamsulosin HCl (Flomax) 0.4 Mg Cap, 0.4 MG PO DAILY, (Reported) Entered as Reported by: KERA FELIPE on 02/22/21 141 Tiotropium [place] (Spiriva Respimat 1.25MCG/ACTUATION) 4 Gm Mist.inhal, 2 PUFF IH DAILY, (Reported) Entered as Reported by: KERA FELIPE on 02/22/21 141 Tobramycin (Tobramycin) 0.3 % Drops, 2 DROPS OS QID, (Reported) Entered as Reported by: OSMANY QUEZADA on 11/20/21 1609 Review of Systems Review of Systems Constitutional: No chills, No fever, No malaise EENTM: No hearing loss, No vision loss, No throat pain Respiratory: No cough, No short of breath Cardiovascular: No chest pain, No palpitations Gastrointestinal: No abdominal pain, No constipation, No diarrhea, No nausea, No vomiting Genitourinary: dysuria (mild pain with urination), frequency (normal); No hematuria Musculoskeletal: No back pain, No muscle pain Skin: No change in color, No rash Psychiatric/Neurological: No Symptoms Reported Hematologic/Lymphatic: No Symptoms Reported Immunological/Allergic: no symptoms reported (TALON CHAWLA) Respiratory: No cough; short of breath Cardiovascular: No chest pain; edema Gastrointestinal: No nausea, No vomiting Genitourinary: pain (Scrotal) Musculoskeletal: joint pain (Bilateral leg) Skin: other (Venous stasis changes lower extremities) (MEMO MELO MD) All Other Systems Reviewed Negative Unless Noted: Yes (MEMO MELO MD) Past Ppqqxde-Hwxgdi-Dmsyci Hx Patient Social History Tobacco Use?: Yes Tobacco type used: Cigarettes Smoking Status: Light Tobacco Smoker Use of E-Cig and/or Vaping dev: No Substance use?: No Alcohol Use?: No Pt feels they are or have been: No (TALON CHAWLA) Immunizations Up To Date Influenza Vaccine Up-to-Date: Yes; Up-to-Date First/Initial COVID19 Vaccinat: 07/16/20 Second COVID19 Vaccination Bryce: 08/05/20 (TALON CHAWLA) Seasonal Allergies Seasonal Allergies: No (TALON CHAWLA) Past Medical History Surgery/Hospitalization HX: DM, HTN, HYPOXIA, BIPOLAR, NEUROPATHY, ANXIETY, CHF, AFIB, CKD, COVID, VERTIGO, GERD Surgeries: Yes Cardiac, Dialysis, Orthopedic, Renal, Vascular Surgery Respiratory: Yes (COMMUNITY ACQUIRED PNEUMONIA) Asthma, Pneumonia Currently Using CPAP: No Currently Using BIPAP: No Cardiac: Yes (PAD) Atrial Fibrillation, Cardiomyopathy, Coronary Artery Disease, High Cholesterol, Hypertension, Peripheral Vascular, Valvular Heart Disease Neurological: Yes (BRAIN INJURY CAUSES EMOTIONS TO CHANGE . LEFT SIDE WEAKNESS) Neuropathy Reproductive Disorders: No Sexually Transmitted Disease: No HIV/AIDS: No Kidney Stones, Renal Failure Gastrointestinal: Yes Colitis, Gastroesophageal Reflux, Diverticulosis, Polyps, Hiatal Hernia Musculoskeletal: Yes (WEAKNESS IN LEGS FROM STROKE ) Arthritis, Fibromyalgia, Rheumatoid Arthritis, Chronic Back Pain Endocrine: Yes Diabetes, Insulin dep Glaucoma Loss of Vision: Bilateral Hearing Impairment: Denies Cancer: No Psychosocial: Yes Sleep Difficulties, Bipolar, Depression Integumentary: No Blood Disorders: Yes (ANEMIA, BLOOD CLOTS ) (TALON CHAWLA) Family Medical History Reviewed Nursing Family Hx (MEMO MELO MD) Cardiovascular disease 19 MOTHER G8 BROTHER Colon cancer 19 MOTHER Completed stroke 19 FATHER Dementia 19 FATHER Diabetes mellitus 19 MOTHER FHx: macular degeneration 19 FATHER Myocardial infarction 19 MOTHER Heart Disease, Diabetes, Hypertension (TALON CHAWLA) Physical Exam Vital Signs Vital Signs - First Documented 11/30/21 13:35 Temp 36.0 Pulse 59 Resp 25 B/P (MAP) 135/89 (104) Pulse Ox 100 O2 Delivery Nasal Cannula O2 Flow Rate 3.00 (MEMO MELO MD) Vital Signs Capillary Refill : Less Than 3 Seconds (TALON CHAWLA) Height, Weight, BMI Height: 6'2" Weight: 250lbs. 0.0oz. [id number]; 52.00 BMI Method:Estimated General Appearance: Mild Distress (appears uncomfortable lying in bed.), Obese HEENT: Moist Mucous Membranes, Other (small areas of erythema on soft palate) Neck: Non Tender, Supple Respiratory: Lungs Clear, Normal Breath Sounds, No Accessory Muscle Use Cardiovascular: Regular Rate, Rhythm, No Murmur Gastrointestinal: Normal Bowel Sounds, Non Tender, Soft Genital/Rectal: Tenderness (swollen testicles ), Other (Patient had significant pain with palpation of inguinal area bilaterally as well as the penis and scrutom. The penis is particularly swollen on the ventral shaft. His scrotum is particularly swollen and firm at this time.) Extremity: Calf Tenderness (bilateral), Pedal Edema (bilateral pedal edema), Pelvis Stable Neurologic/Psychiatric: Alert, Oriented x3; No Facial Droop; Motor Weakness (left-sided motor weakness of leg and arm due to prior stroke. ) Skin: Warm/Dry; No Ecchymosis; Other (Skin on feet and banda is particularly dark and thickened.) Lymphatic: No Adenopathy (TALON CHAWLA) General Appearance: Mild Distress (appears uncomfortable lying in bed.), Obese HEENT: PERRL/EOMI, Pharynx Normal Neck: Non Tender, Supple Respiratory: Lungs Clear, No Accessory Muscle Use, No Respiratory Distress Cardiovascular: Regular Rate, Rhythm, No Murmur Gastrointestinal: Non Tender, Soft Back: No CVA Tenderness; No Muscle Spasm Extremity: Pedal Edema (bilateral pedal edema 4+ up to the level of scrotum), Pelvis Stable Skin: Warm/Dry, Other (Skin on feet and banda is particularly dark and thickened.) (MEMO MELO MD) Progress/Results/Core Measures Suspected Sepsis SIRS Temperature: Pulse: 59 Respiratory Rate: 25 Laboratory Tests 11/30/21 13:40: White Blood Count 8.5 Blood Pressure 135 /89 Mean: 104 Laboratory Tests 11/30/21 13:40: Creatinine 1.53H, Platelet Count 227, Total Bilirubin 0.3 (TALON CHAWLA) Results/Orders Lab Results Laboratory Tests Test 11/30/21 13:40 Range/Units White Blood Count 8.5 4.3-11.0 10^3/uL Red Blood Count 3.72 L 4.30-5.52 10^6/uL Hemoglobin 9.8 L 13.3-17.7 g/dL Hematocrit 34 L 40-54 % Mean Corpuscular Volume 91 80-99 fL Mean Corpuscular Hemoglobin 26 25-34 pg Mean Corpuscular Hemoglobin Concent 29 L 32-36 g/dL Red Cell Distribution Width 19.2 H 10.0-14.5 % Platelet Count 227 130-400 10^3/uL Mean Platelet Volume 13.1 H 9.0-12.2 fL Immature Granulocyte % (Auto) 1 % Neutrophils (%) (Auto) 73 42-75 % Lymphocytes (%) (Auto) 14 12-44 % Monocytes (%) (Auto) 10 0-12 % Eosinophils (%) (Auto) 3 0-10 % Basophils (%) (Auto) 1 0-10 % Neutrophils # (Auto) 6.2 1.8-7.8 10^3/uL Lymphocytes # (Auto) 1.2 1.0-4.0 10^3/uL Monocytes # (Auto) 0.8 0.0-1.0 10^3/uL Eosinophils # (Auto) 0.2 0.0-0.3 10^3/uL Basophils # (Auto) 0.1 0.0-0.1 10^3/uL Immature Granulocyte # (Auto) 0.1 0.0-0.1 10^3/uL Sodium Level 147 H 135-145 MMOL/L Potassium Level 5.3 H 3.6-5.0 MMOL/L Chloride Level 111 H 98-107 MMOL/L Carbon Dioxide Level 25 21-32 MMOL/L Anion Gap 11 5-14 MMOL/L Blood Urea Nitrogen 27 H 7-18 MG/DL Creatinine 1.53 H 0.60-1.30 MG/DL Estimat Glomerular Filtration Rate 53 BUN/Creatinine Ratio 18 Glucose Level 174 H 70-105 MG/DL Calcium Level 9.2 8.5-10.1 MG/DL Corrected Calcium 9.9 8.5-10.1 MG/DL Magnesium Level 2.5 H 1.6-2.4 MG/DL Total Bilirubin 0.3 0.1-1.0 MG/DL Aspartate Amino Transf (AST/SGOT) 11 5-34 U/L Alanine Aminotransferase (ALT/SGPT) 12 0-55 U/L Alkaline Phosphatase 77 40-136 U/L Troponin I < 0.028 <0.028 NG/ML C-Reactive Protein High Sensitivity 11.40 H 0.00-0.50 MG/DL B-Type Natriuretic Peptide 304.2 H <100.0 PG/ML Total Protein 7.9 6.4-8.2 GM/DL Albumin 3.1 L 3.2-4.5 GM/DL (MEMO MELO MD) My Orders Orders - MEMO MELO MD Scrotum (Testicle) [id number] (11/30/21 14:01) Bnp [place] (11/30/21 14:01) Cbc With Automated Diff (11/30/21 14:) Comprehensive Metabolic Panel (11/30/21 14:01) Hs C Reactive Protein (11/30/21 14:01) Magnesium (11/30/21 14:01) Troponin I [place] (11/30/21 14:01) Ua Culture If Indicated (11/30/21 14:) Chest 1 View, Ap/Pa Only (11/30/21 14:01) Ekg Tracing (11/30/21 14:) O2 (11/30/21 14:) Monitor-Rhythm Ecg Trace Only (11/30/21 14:) I-Stat Bedside Testing (11/30/21 14:01) Fentanyl Inj (Sublimaze Injection) (11/30/21 14:19) Furosemide Injection (Lasix Injection) (11/30/21 14:59) (MEMO MELO MD) Vital Signs/I&O 11/30/21 13:35 Temp 36.0 Pulse 59 Resp 25 B/P (MAP) 135/89 (104) Pulse Ox 100 O2 Delivery Nasal Cannula O2 Flow Rate 3.00 (MEMO MELO MD) Vital Signs/I&O Capillary Refill : Less Than 3 Seconds (TALON CHAWLA) Blood Pressure Mean: 104 Progress Note : Progress Note I have seen and evaluated the patient and agree with above except as indicated. I have directed the plan of care. Patient is here with marked increased swelling of his scrotum. He also has significant edema of both legs. Did have recent echocardiogram which showed normal EF but has had long history of pedal edema. Patient denies chest pain currently. He does seem a bit drowsy otherwise similar to his normal self as seen by me previously. Evaluation as above. Plan to check labs, get scrotal ultrasound and x-ray. Monitor patient. 1501: Scrotal ultrasound, x-ray and labs reviewed. Patient has findings of significant edema including chest x-ray findings of pulmonary edema. Lasix 40 mg IV ordered. I did discuss the case with Dr. Evans and she accepts patient for admission, inpatient status. Patient agrees to plan. (MEMO MELO MD) ECG Initial ECG Impression Date: November 30, 2021 Initial ECG Impression Time: 14:20 Initial ECG Rate: 53 Initial ECG Rhythm: S.Brant Comment Sinus bradycardia with normal but rightward axis. Interventricular conduction delay noted. No evidence of ST elevation RI. Similar to previous of 11/20/2021. Interpreted by me. (MEMO MELO MD) Diagnostic Imaging Diagonstic Imaging: Xray, Ultrasound Plain Films/CT/US/NM/MRI: chest, other (scrotal) Comments Chest X ray reviewed by me and preliminary report can be read below: NAME: SERG KEBEDE MED REC#: [id number] PT STATUS: REG ER : 1965 PHYSICIAN: MEMO MELO MD ADMIT DATE: 11/30/21/ER Draft Date of Exam:11/30/21 CHEST 1 VIEW, AP/PA ONLY INDICATION: Peripheral edema. EXAMINATION: Portable chest at 2:19 p.m. FINDINGS: There is cardiomegaly with pulmonary vascular congestion and interstitial edema. There are no effusions. IMPRESSION: Congestive heart failure. Dictated on workstation # [id number] Dict: 11/30/21 1416 Trans: 11/30/21 1420 [id number] Interpreted by: MEMO BOWDEN MD Electronically signed by: (TALON CHAWLA) Comments [facility], [place] NAME: SERG KEBEDE MED REC#: [id number] PT STATUS: REG ER : 1965 PHYSICIAN: MEMO MELO MD ADMIT DATE: 11/30/21/ER Draft Date of Exam:11/30/21 US SCROTUM (Testicle) [id number] PROCEDURE: US Scrotum. TECHNIQUE: Multiple real-time grayscale images were obtained over the scrotum in various projections bilaterally. INDICATION: Testicular pain. FINDINGS: The right testicle measures 3.6 x 2.9 x 2.2 cm, and the left testicle measures 3.3 x 2.6 x 2.5 cm. Both testes show fairly homogeneous echotexture. No discrete testicular mass is detected, and there are punctate echogenicities within the left testicle suggestive of microlithiasis. There is blood flow to both testes. There does appear to be significant scrotal wall edema. There is a small right hydrocele present as well. Epididymides were poorly visualized due to the significant scrotal wall edema. IMPRESSION: 1. Significant scrotal wall edema. 2. No evidence of testicular mass or vascular compromise. 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 There is also a small right hydrocele. Dictated on workstation # [id number] Dict: 11/30/21 1440 Trans: 11/30/21 1445 [id number] Interpreted by: JOLENE ADAMS MD Electronically signed by: (MEMO MELO MD) Departure Communication (Admissions) Time/Spoke to Admitting Phy: 15:01 (MEMO MELO MD) Impression Primary Impression: Pulmonary edema Qualified Codes: J81.0 - Acute pulmonary edema Additional Impressions: Edema of scrotum Bilateral lower extremity edema Disposition: ADMITTED INPATIENT Condition: Stable Admissions Decision to Admit Reason: Admit from ER (General) Decision to Admit/Date: November 30, 2021 Time/Decision to Admit Time: 15:01 (MEMO MELO MD) Departure-Patient Inst. Referrals: RACHEL LONGORIA DO (PCP/Family) Primary Care Physician TALON CHAWLA November 30, 2021 14:10 MEMO MELO MD November 30, 2021 15:11
[2021-11-30 14:17] LABS: BASOPHILS # (AUTO) 0.1 10^3/uL (0.0-0.1); BASOPHILS % (AUTO) 1 % (0-10); EOSINOPHILS # (AUTO) 0.2 10^3/uL (0.0-0.3); EOSINOPHILS % (AUTO) 3 % (0-10); HEMATOCRIT 34 % (40-54); HEMOGLOBIN 9.8 g/dL (13.3-17.7); LYMPHOCYTES # (AUTO) 1.2 10^3/uL (1.0-4.0); LYMPHOCYTES % (AUTO) 14 % (12-44); MEAN CORPUSCULAR HEMOGLOBIN 26 pg (25-34); MEAN CORPUSCULAR HGB CONC 29 g/dL (32-36); MEAN CORPUSCULAR VOLUME 91 fL (80-99); MEAN PLATELET VOLUME 13.1 fL (9.0-12.2); MONOCYTES # (AUTO) 0.8 10^3/uL (0.0-1.0); MONOCYTES % (AUTO) 10 % (0-12); NEUTROPHILS # (AUTO) 6.2 10^3/uL (1.8-7.8); NEUTROPHILS % (AUTO) 73 % (42-75); PLATELET COUNT 227 10^3/uL (130-400); WHITE BLOOD COUNT 8.5 10^3/uL (4.3-11.0)
[2021-11-30] MEDS ORDERED: fentaNYL INJ 100 MCG/2 ML AMP IVP STA (14:19)
--- NOTE | 2021-11-30 14:21 | Diagnostic Imaging Report ---
INDICATION: Peripheral edema. EXAMINATION: Portable chest at 2:19 p.m. FINDINGS: There is cardiomegaly with pulmonary vascular congestion and interstitial edema. There are no effusions. IMPRESSION: Congestive heart failure. Dictated by: Dictated on workstation # [id number]
[2021-11-30 14:23] LABS: ALBUMIN 3.1 GM/DL (3.2-4.5); CHLORIDE 111 MMOL/L (98-107); POTASSIUM 5.3 MMOL/L (3.6-5.0); SODIUM 147 MMOL/L (135-145)
[2021-11-30 14:24] LABS: CALCIUM 9.2 MG/DL (8.5-10.1)
[2021-11-30 14:25] LABS: GLUCOSE 174 MG/DL (70-105); TOTAL PROTEIN 7.9 GM/DL (6.4-8.2)
[2021-11-30 14:27] LABS: BILIRUBIN,TOTAL 0.3 MG/DL (0.1-1.0); CARBON DIOXIDE 25 MMOL/L (21-32)
[2021-11-30 14:29] LABS: ALKALINE PHOSPHATASE 77 U/L (40-136); CREATININE SERUM 1.53 MG/DL (0.60-1.30); GFR ESTIMATED 53
[2021-11-30 14:30] LABS: BUN/CREATININE RATIO 18
[2021-11-30 14:32] LABS: ALANINE AMINOTRANSFERASE 12 U/L (0-55); MAGNESIUM 2.5 MG/DL (1.6-2.4)
--- NOTE | 2021-11-30 14:45 | Diagnostic Imaging Report ---
PROCEDURE: US Scrotum. TECHNIQUE: Multiple real-time grayscale images were obtained over the scrotum in various projections bilaterally. INDICATION: Testicular pain. FINDINGS: The right testicle measures 3.6 x 2.9 x 2.2 cm, and the left testicle measures 3.3 x 2.6 x 2.5 cm. Both testes show fairly homogeneous echotexture. No discrete testicular mass is detected, and there are punctate echogenicities within the left testicle suggestive of microlithiasis. There is blood flow to both testes. There does appear to be significant scrotal wall edema. There is a small right hydrocele present as well. Epididymides were poorly visualized due to the significant scrotal wall edema. IMPRESSION: 1. Significant scrotal wall edema. 2. No evidence of testicular mass or vascular compromise. 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 There is also a small right hydrocele. Dictated by: Dictated on workstation # [id number]
[2021-11-30] MEDS ORDERED: FUROSEMIDE 40 MG/4 ML INJ (LASIX) IV STA (14:59)
[2021-11-30 15:34] LABS: BILIRUBIN,URINE NEGATIVE (NEGATIVE); CLARITY,URINE SL CLOUDY; COLOR,URINE YELLOW; GLUCOSE, URINE (UA) 3+ (NEGATIVE); KETONES,URINE NEGATIVE (NEGATIVE); LEUKOCYTE ESTERASE ,URINE NEGATIVE (NEGATIVE); NITRITE,URINE NEGATIVE (NEGATIVE); PROTEIN,URINE 2+ (NEGATIVE)
[2021-11-30 15:47] LABS: BACTERIA,URINE TRACE /HPF; RBC,URINE RARE /HPF; WBC,URINE 0-2 /HPF
[2021-11-30] MEDS ORDERED: TRM50T PO (16:57)
[2021-11-30] MEDS ORDERED: NYST15PO4 TP (16:57)
[2021-11-30] MEDS ORDERED: CATHETER FLUSH 10 ML SYR IV PRN (17:30)
[2021-11-30] MEDS: fentaNYL INJ 100 MCG/2 ML AMP IVP PRN (17:58)
[2021-11-30] MEDS ORDERED: RT-ALBUTEROL SULF 2.5 MG/3 ML PRE-MIX VIAL INH PRN (19:45)
[2021-11-30] MEDS ORDERED: MECLIZINE 25 MG (ANTIVERT) TAB PO PRN (19:45)
[2021-11-30] MEDS ORDERED: DICLOFENAC 1% GEL 100 GM (VOLTAREN) TUBE TP PRN (19:45)
[2021-11-30] MEDS ORDERED: polyethylene glycoL POWDER 17 GM (MIRALAX) PACK PO PRN (19:45)
[2021-11-30] MEDS ORDERED: ONDANSETRON 4 MG (ZOFRAN) ORAL DISSOLVE TAB PO PRN (19:45)
[2021-11-30] MEDS ORDERED: DOCUSATE SODIUM 100 MG (COLACE) CAP PO PRN (19:45)
[2021-11-30] MEDS ORDERED: ACETAMINOPHEN 325 MG TABLET PO PRN (19:45)
[2021-11-30 20:00] VITALS: BP 155/84
[2021-11-30] MEDS ORDERED: NON-FORMULARY MEDICATION 1 EA EA (Brimonidine Tartrate (Alphagan P) 1 DROP) OU SCH (21:00)
[2021-11-30] MEDS: FUROSEMIDE 40 MG/4 ML INJ (LASIX) IVP SCH (22:44)
[2021-11-30] MEDS: DIVALPROEX 250 MG DELAYED RELEASE (DEPAKOTE) TAB PO SCH (22:44)
[2021-11-30] MEDS: doxAzosin 2 MG (CARDURA) TAB PO SCH (22:45)
[2021-11-30] MEDS ORDERED: LOPERAMIDE 2 MG (IMODIUM) TABLET PO PRN (22:45)
[2021-11-30] MEDS ORDERED: CALCIUM CARBONATE 500 MG (TUMS) TAB.CHEW PO PRN (22:45)
[2021-11-30] MEDS: GABAPENTIN 400 MG (NEURONTIN) CAP PO SCH (22:45)
[2021-11-30] MEDS: APIXABAN 5 MG (ELIQUIS) TABLET PO SCH (22:45)
[2021-11-30] MEDS: MICONAZOLE 2% POWDER (DESENEX AF) 90 GM TOP SCH (22:45)
[2021-11-30] MEDS: MELATONIN 3 MG TABLET PO SCH (22:45)
[2021-11-30] MEDS: CATHETER FLUSH 10 ML SYR IV SCH (22:45)
[2021-12-01] VITALS: BP 130/66
[2021-12-01 04:00] VITALS: BP 128/68
[2021-12-01] MEDS: CATHETER FLUSH 10 ML SYR IVP SCH ×3 (06:14→22:44)
[2021-12-01 06:16] LABS: BASOPHILS # (AUTO) 0.1 10^3/uL (0.0-0.1); BASOPHILS % (AUTO) 1 % (0-10); EOSINOPHILS # (AUTO) 0.3 10^3/uL (0.0-0.3); EOSINOPHILS % (AUTO) 4 % (0-10); HEMATOCRIT 31 % (40-54); LYMPHOCYTES % (AUTO) 14 % (12-44); MEAN CORPUSCULAR HEMOGLOBIN 26 pg (25-34); MEAN CORPUSCULAR HGB CONC 29 g/dL (32-36); MEAN CORPUSCULAR VOLUME 91 fL (80-99); MEAN PLATELET VOLUME 12.7 fL (9.0-12.2); MONOCYTES % (AUTO) 14 % (0-12); NEUTROPHILS # (AUTO) 4.7 10^3/uL (1.8-7.8); NEUTROPHILS % (AUTO) 67 % (42-75); PLATELET COUNT 226 10^3/uL (130-400)
[2021-12-01 06:36] LABS: POTASSIUM 5.1 MMOL/L (3.6-5.0)
[2021-12-01 06:37] LABS: CALCIUM 9.1 MG/DL (8.5-10.1)
[2021-12-01 06:41] LABS: CREATININE SERUM 1.54 MG/DL (0.60-1.30)
[2021-12-01] MEDS: MULTIVIT W/MINERALS TAB (THERAGRAN M) PO SCH (06:45)
[2021-12-01] MEDS: CATHETER FLUSH 10 ML SYR IV SCH ×3 (06:45→22:44)
[2021-12-01] MEDS: FUROSEMIDE 40 MG/4 ML INJ (LASIX) IVP SCH ×2 (06:45→16:31)
[2021-12-01] MEDS ORDERED: FUROSEMIDE 40 MG/4 ML INJ (LASIX) IVP SCH (07:00)
[2021-12-01 08:03] VITALS: BP 149/81
[2021-12-01] MEDS ORDERED: meTOprolol TARTRATE 50 MG (LOPRESSOR) TAB PO SCH (09:00)
[2021-12-01] MEDS: amLODIPine 10 MG (NORVASC) TAB PO SCH (09:18)
[2021-12-01] MEDS: APIXABAN 5 MG (ELIQUIS) TABLET PO SCH ×2 (09:18→21:34)
[2021-12-01] MEDS: GABAPENTIN 400 MG (NEURONTIN) CAP PO SCH ×4 (09:18→21:35)
[2021-12-01] MEDS: EMPAGLIFLOZIN 10 MG TABLET (JARDIANCE) PO SCH (09:18)
[2021-12-01] MEDS: DIVALPROEX 250 MG DELAYED RELEASE (DEPAKOTE) TAB PO SCH ×3 (09:18→21:34)
[2021-12-01] MEDS: ASPIRIN E.C. 81 MG (ECOTRIN) TAB PO SCH (09:19)
[2021-12-01] MEDS: TAMSULOSIN 0.4 MG (FLOMAX) CAP PO SCH (09:19)
[2021-12-01] MEDS: MICONAZOLE 2% POWDER (DESENEX AF) 90 GM TOP SCH ×2 (09:20→21:40)
[2021-12-01] MEDS: DULoxetine 20 MG (CYMBALTA) CAP PO SCH (09:21)
[2021-12-01] MEDS: UMECLIDINIUM BROMIDE (INCRUSE ELLIPTA) 7'S IH SCH (09:22)
[2021-12-01] MEDS: RT--FLUTICASONE/SALMETEROL 232-14 (AIRDUO RespiCLICK) IH SCH ×2 (09:22→21:25)
[2021-12-01] MEDS: fentaNYL INJ 100 MCG/2 ML AMP IVP PRN (10:17)
[2021-12-01] MEDS ORDERED: INSU100I29 SQ (10:51)
[2021-12-01] MEDS ORDERED: DOXA2TAB2 PO (10:51)
[2021-12-01] MEDS ORDERED: INSU200I SQ (10:51)
--- NOTE | 2021-12-01 10:56 | History & Physical ---
NGUYEN MAY 12/01/21 1056: HPI History of Present Illness: Chief Complaint: Scrotal and Lower Extremity Swelling History of Present Illness: Elie Josue is a 56 year old male who was brought to the ER from [facility] on 11/30/21 with chief complaint of severe scrotal and leg swelling. Patient had scrotal swelling since 11/29/21 which progressed to swelling in his legs with severe, aching pain rated at 9/10. 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 CXR on admission showed cardiomegaly with pulmonary vascular congestion and interstitial edema consistent with heart failure. BNP also 304 on admission. Patient was started on fentanyl to control severe scrotal pain and given lasix to decrease volume overload status in the setting of chronic heart failure. When I visited the patient this morning he is on BiPAP 14/6 at 40% FiO2 and heavily sleeping. States his legs and scrotum hurt badly. Returning later in the morning, patient is more awake but still slightly slow to respond to questions stating that his scrotum and legs hurt severely. Patient ate breakfast this morning. Source: old records, other (ER Records Reviewed) Exam Limitations: no limitations Date seen by provider: December 01, 2021 Time Seen by Provider: 08:10 Attending Physician Cindy Ford DO PCP Admitting Physician: Kia Benitez MD Attending Physician: Kia Benitez MD Consult Date of Admission November 30, 2021 at 15:03 Home Medications Home Medications Reviewed patient Home Medication Reconciliation performed by pharmacy medication reconciliations eye technician and/or nursing. Patients Allergies have been reviewed. Allergies Coded Allergies: penicillin V (Unverified Allergy, Unknown, 10/01/08) erythromycin base (Unverified Adverse Reaction, Mild, VOMITING, 03/18/13) [id number]-Oduvwd Hx Patient Social History Smoking Status: Light Tobacco Smoker 2nd Hand Smoke Exposure: No Recent Hopitalizations: No Alcohol Use?: No Tobacco type used: Cigarettes Have you traveled recently?: No Immunizations Up To Date Influenza Vaccine Up-to-Date: Yes; Up-to-Date First/Initial COVID19 Vaccinat: 07/16/20 Second COVID19 Vaccination Bryce: 1/27/21 Third COVID19 Vaccination Date: 10/27/21 Past Medical History Past Medical History 1. Diabetes Mellitus 2. Hypertension 3. Seizure Disorder- history of grand mal per pt. report (no records of neurology evaluation) 4. Bi-polar Disorder 5. Depression 6. Anxiety 7. Peripheral Neuropathy 8. History of Acute Renal Failure requiring hemodialysis 2003. 9. History of superficial RUE venous thrombus due to central line placement 10. History of chronic joint pain. 11. Chronic Peripheral Edema 12. Tobaccoism 13. 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 14. Diastolic dysfunction due to uncontrolled hypertension 15. Mild coronary artery disease per cath 16. Hyperlipidemia 17. Non-compliance with follow up and medication use 18. Hx ischemic Right Frontoparietal Infarct in the Right MCA distribution 06/2015 19. Hx of second right MCA stroke in 11/2015 20. Paroxysmal atrial fibrillation Family Medical History Significant Family History: Heart Disease, Diabetes, Hypertension Family History: Cardiovascular disease 19 MOTHER G8 BROTHER Colon cancer 19 MOTHER Completed stroke 19 FATHER Dementia 19 FATHER Diabetes mellitus 19 MOTHER FHx: macular degeneration 19 FATHER Myocardial infarction 19 MOTHER Review of Systems (CHC) Constitutional: other (Patient minimally responsive.) Genitourinary: other (Scrotal Pain) Musculoskeletal: other (Bilateral leg pain) Other Patient only responds enough to say that his scrotum and legs are in pain. Physical Exam-([facility]) Physical Exam Vital Signs VS - Last 72 Hours, by Label 11/30/21 11/30/21 11/30/21 11/30/21 13:35 15:30 15:30 16:07 Temp 36.0 36.0 Pulse 59 58 Resp 22 B/P (MAP) 135/89 (104) 148/83 Pulse Ox 100 95 95 O2 Delivery Nasal Cannula Nasal Cannula Nasal Cannula Nasal Cannula O2 Flow Rate 3.00 2.00 2.00 2.00 11/30/21 11/30/21 12/01/21 12/01/21 20:00 20:00 00:00 04:00 Temp 36.2 37.0 36.2 Pulse 86 57 64 Resp 18 14 16 B/P (MAP) 155/84 (107) 130/66 (87) 128/68 (88) Pulse Ox 96 99 100 O2 Delivery Nasal Cannula Nasal Cannula NIV Bilevel NIV Bilevel O2 Flow Rate 2.00 2.50 12/01/21 12/01/21 12/01/21 08:03 08:12 11:50 Temp 35.7 36.1 Pulse 64 68 Resp 16 18 B/P (MAP) 149/81 (103) 131/85 (100) Pulse Ox 100 100 O2 Delivery NIV Bilevel Nasal Cannula Room Air O2 Flow Rate 2.00 Capillary Refill : Less Than 3 Seconds General Appearance: mild distress, obese (Obese, Class 3), other (Chronically Ill) HEENT: No scleral icterus (R), No scleral icterus (L), No pale conjunctivae (R), No pale conjunctivae (L) Respiratory: other (Diminished lung breath sounds. Pt on BIPAP 14/6 @ 40% FiO2) Cardiovascular: other (Diminished heart sounds) Peripheral Pulses: 0 Dorsalis Pedis (R), 0 Left Dors-Pedis (L); 2+ Radial Pulses (R), 2+ Radial Pulses (L) Gastrointestinal: normal bowel sounds, non tender, soft, other (Large, obese abdomen) Genital/Rectal: other (Bilateral scrotum are severly edematous and enlarged. Patient expresses severe pain with examination of scrotum. Multiple vesicular lesions on intertriginous area) Extremities: swelling (Bilateral lower extremities), other (Stasis dermatitis bilaterally. Severe non-pitting edema) Neurologic/Psychiatric: other (Patient minimally responsive, only alert to mentioning his scrotum and leg pain.) Skin: other (Bilateral lower extremity stasis dermatits, otherwise skin normal color, warm, and dry) Lymphatic: no adenopathy (Cervical, supraclavicular) Assessment/Plan Assessment/Plan Admission Dx Scrotal Swelling Pulmonary Edema Admission Status: Inpatient Order (span 2 midnights) Reason for Inpatient Admission: Severe scrotal edema and acute decompensation of HFpEF Assessment & Plan Assessment: Scrotal Swelling Lower Extremity Swelling Pulmonary Edema Acute Decompensation HFpEF Heart Failure Preserved Ejection Fraction, LVEF 55-60% 11/21/21, BNP 304 on admission Coronary Artery Disease, mild Paroxysmal atrial fibrillation Obesity, Severe Class 3 Chronic Peripheral Edema Stasis Dermatitis- bilateral lower extremities Diabetes Hypertension Bipolar Disorder Neuropathy Anxiety Depression Chronic Kidney Disease GERD Peripheral Vascular Disease History of ischemic Right Frontoparietal Infarct in the Right MCA distribution 06/2015 History of second right MCA stroke in 11/2015 History of Acute Renal Failure requiring hemodialysis 2003. 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 Possibly due to an infection, we will get a viral swab of the patients scrotum/intertrigo area as well as test for gonorrhea and chlamydia. May also be due to acute decompensation of patient's HFpEF with the findings of bilateral lower extremity edema and CXR findings. Patient reports he already takes Tramadol on a regular basis at [facility], We will give patient Fentanyl 50mcg Q1H PRN for severe pain control. Controlling Acute Decompensation of HFpEF with lasix may also help with scrotal swelling, bilateral lower extremity edema, and pulmonary interstitial edema. 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 Patient has so far received 120mg of Lasix for excess fluid, 1200mL UOP on 11/30 and 1900 UOP on 12/01 to this point in time. Vital signs are stable when I entered the room. Will continue to monitor patient's clinical status and urine output. Use BiPAP at night. Atrial Fibrillation: Anticoagulation with Eliquis is resumed. Beta-lorelei was stopped on patient's last admission due to bradycardia. Metoprolol is stopped during this hospital course. Chronic Kidney Disease: Baseline creatinine unknown but estimated to be 1.6 with previous admissions to [facility], therefore estimated baseline GFR 50 and Stage 3A CKD. Will monitor kidney function with giving lasix. History of Medical Non-compliance: Patient was reluctant to wear BiPAP during his recent visit this year. KIA BENITEZ MD 12/01/21 1420: Home Medications Allergies Coded Allergies: penicillin V (Unverified Allergy, Unknown, 10/01/08) erythromycin base (Unverified Adverse Reaction, Mild, VOMITING, 03/18/13) BVD-Pkrpkv-Bwdowh Hx Family Medical History Family History: Cardiovascular disease 19 MOTHER G8 BROTHER Colon cancer 19 MOTHER Completed stroke 19 FATHER Dementia 19 FATHER Diabetes mellitus 19 MOTHER FHx: macular degeneration 19 FATHER Myocardial infarction 19 MOTHER Supervisory-Addendum Brief Verification & Attestation Participated in pt care: history, MDM, physical Personally performed: exam, history, MDM, supervision of care Care discussed with: Medical Student Procedures: n/a I personally saw patient and repeated my own history and exam. I did not check pedal pulses or for cervical lymphadenopathy, otherwise I can confirm findings documented by the medical student. I directed the plan of care as documented by the medical student. NGUYEN MAY December 01, 2021 10:56 KIA BENITEZ MD December 01, 2021 14:20
[2021-12-01 11:50] VITALS: BP 131/85
--- NOTE | 2021-12-01 14:27 | Physical Therapy Evaluation ---
PT Evaluation-General Medical Diagnosis Admission Date November 30, 2021 at 15:03 Medical Diagnosis: LE and scrotal edema Onset Date: November 30, 2021 Therapy Diagnosis Therapy Diagnosis: impaired mobility, strength Height/Weight Height (Feet): 6 Height (Inches): 2 Weight (Pounds): 250 Weight (Ounces): 0.0 Precautions Precautions/Isolations: Fall Prevention, Standard Precautions Referral Physician: Nathan Reason for Referral: Evaluation/Treatment Medical History Pertinent Medical History: Arthritis, CAD, CVA, DM, Diverticulitis, GERD, HTN, VA, Neuropathy, PVD, Rheumatoid Arthritis, Smoking Additional Medical History Past Medical History Past Medical History 1. Diabetes Mellitus 2. Hypertension 3. Seizure Disorder- history of grand mal per pt. report (no records of neurology evaluation) 4. Bi-polar Disorder 5. Depression 6. Anxiety 7. Peripheral Neuropathy 8. History of Acute Renal Failure requiring hemodialysis 2003. 9. History of superficial RUE venous thrombus due to central line placement 10. History of chronic joint pain. 11. Chronic Peripheral Edema 12. Tobaccoism 13. 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 14. Diastolic dysfunction due to uncontrolled hypertension 15. Mild coronary artery disease per cath 16. Hyperlipidemia 17. Non-compliance with follow up and medication use 18. Hx ischemic Right Frontoparietal Infarct in the Right MCA distribution 06/2015 19. Hx of second right MCA stroke in 11/2015 20. Paroxysmal atrial fibrillation Reviewed History: Yes Social History Home: Custodial Prior Prior Level of Function SCALE: Activities may be completed with or without assistive devices. 1-Xupifwevrn-gawmeah completes the activity by him/herself with no assistance from a helper. 5-Set-up or Clean-up Assistance-helper sets up or cleans up; patient completes activity. [place] assists only prior to or following the activity. 4-Supervision or Touching Assistance-helper provides verbal cues and/or touch ing/steadying and/or contact guard assistance as patient completes activity. Assistance may be provided throughout the activity or intermittently. 3-Partial/Moderate Assistance-helper does LESS THAN HALF the effort. [place] lifts, holds or supports trunk or limbs, but provides less than half the effort. 2-Substantial/Maximal Assistance-helper does MORE THAN HALF the effort. [place] lifts or holds trunk or limbs and provides more than half the effort. 0-Uqqdgwqkx-uhyygq does ALL the effort. Patient does none of the effort to complete the activity. Or, the assistance of 2 or more helpers is required for the patient to complete the activity. If activity was not attempted, code reason: 7-Patient Refused. 9-Not Applicable-not attempted and the patient did not perform the activity before the current illness, exacerbation or injury. 10-Not Attempted due to Environmental Limitations-(lack of equipment, weather restraints, etc.). 88-Not Attempted due to Medical Conditions or Safety Concerns. Unsure of this. Patient states he ambulates on his own using a rolling walker but that seems doubtful based on his presentation the last few times he has been here. PT Evaluation-Current Subjective Patient in bed pre tx, agrees to PT but states he doesn't want to get out of bed or sit to the side of the bed. He does agree to exercises in bed. Patient has unrated pain in both legs. Pt/Family Goals none stated Objective Patient Orientation: Person, Confused, Unable to Assess, Mumbles Attachments: Ott Catheter ROM/Strength ROM Lower Extremities limited due to pain and obesity and swelling Strength Lower Extremities Patient is unable to follow directions but seems to have at least 3/5 grossly in BLE Sensory Hearing: Functional Treatment BLE supine exercises x10 (AP, HS, SLR) Assessment/Needs Patient in bed post tx with nurse call, phone, tray, all needs met. Patient has impaired mobility, strength, endurance. Patient seems to be almost writhing in bed the while time, reaching and scratching in his private area. Rehab Potential: Guarded PT Mcfp Goals Mcfp Goals PT Putty Mixer Goals Time Frame: Dec 08, 2021 Roll Left & Right (QC): 3 Sit to Lying (QC): 3 Lying-Sitting on Side/Bed(QC): 3 Sit to Stand (QC): 3 Chair/Juy-rn-Aayjo Xfer(QC): 3 PT Plan Problem List Problem List: Activity Tolerance, Functional Strength, Safety, Balance, Gait, Transfer, Bed Mobility, ROM Treatment/Plan Treatment Plan: Continue Plan of Care Treatment Plan: Bed Mobility, Education, Functional Activity Pancho, Functional Strength, Gait, Safety, Therapeutic Exercise, Transfers Treatment Duration: Dec 08, 2021 Frequency: 6 times per week Estimated Hrs Per Day: .25 hour per day Patient and/or Family Agrees t: Yes Safety Risks/Education Patient Education: Correct Positioning, Safety Issues Teaching Recipient: Patient Teaching Methods: Demonstration, Discussion Response to Teaching: Reinforcement Needed Discharge Recommendations Plan Patient will perform bed mobility and transfer training, balance and endurance training, functional strengthening, gait training, and education, to improve functional mobility and independence at home. Therapy Discharge Recommendati: 24 Hour Supervision Time/GCodes Time In: 1401 Time Out: 1411 Total Billed Treatment Time: 10 Total Billed Treatment 1 visit JUAN LUX PT December 01, 2021 14:27
[2021-12-01 16:15] VITALS: BP 182/79
[2021-12-01] MEDS: inSUlin ASPART (NovoLOG) 1 UNIT/0.01 ML (CHARGE PER UNIT) SC SCH ×2 (16:37→21:40)
[2021-12-01 19:34] VITALS: BP 150/71
[2021-12-01] MEDS: doxAzosin 2 MG (CARDURA) TAB PO SCH (21:34)
[2021-12-01] MEDS: ROSUVASTATIN 10 MG (CRESTOR) TABLET PO SCH (21:34)
[2021-12-01] MEDS: MELATONIN 3 MG TABLET PO SCH (21:34)
[2021-12-02] VITALS (7 sets, daily range): BP systolic 111–171; BP diastolic 54–83
[2021-12-02] MEDS: CATHETER FLUSH 10 ML SYR IVP SCH ×3 (04:57→21:13)
[2021-12-02] MEDS: MULTIVIT W/MINERALS TAB (THERAGRAN M) PO SCH (05:02)
[2021-12-02] MEDS: FUROSEMIDE 40 MG/4 ML INJ (LASIX) IVP SCH ×2 (05:02→17:17)
[2021-12-02] MEDS: CATHETER FLUSH 10 ML SYR IV SCH ×3 (05:02→21:13)
[2021-12-02] MEDS: inSUlin ASPART (NovoLOG) 1 UNIT/0.01 ML (CHARGE PER UNIT) SC SCH ×4 (05:07→21:13)
[2021-12-02 07:22] LABS: HEMATOCRIT 31 % (40-54); HEMOGLOBIN 9.1 g/dL (13.3-17.7); MEAN CORPUSCULAR HEMOGLOBIN 26 pg (25-34); MEAN CORPUSCULAR HGB CONC 29 g/dL (32-36); MEAN CORPUSCULAR VOLUME 89 fL (80-99); PLATELET COUNT 239 10^3/uL (130-400); WHITE BLOOD COUNT 6.6 10^3/uL (4.3-11.0)
[2021-12-02 07:24] LABS: POTASSIUM 4.6 MMOL/L (3.6-5.0)
[2021-12-02 07:25] LABS: CALCIUM 9.6 MG/DL (8.5-10.1)
[2021-12-02 07:29] LABS: CREATININE SERUM 1.52 MG/DL (0.60-1.30)
--- NOTE | 2021-12-02 09:02 | Physical Therapy Progress Note ---
Therapy Progress Note Patient adamantly declined bilateral LE exercises and/or OOB activity. PT attempted to encourage and educate patient, however, patient continues to decline. Will attempt either later today or in a.m. 1 ref SAYRA HI PT December 02, 2021 09:01
[2021-12-02] MEDS: UMECLIDINIUM BROMIDE (INCRUSE ELLIPTA) 7'S IH SCH (09:30)
[2021-12-02] MEDS: RT--FLUTICASONE/SALMETEROL 232-14 (AIRDUO RespiCLICK) IH SCH ×2 (09:30→19:53)
[2021-12-02] MEDS: EMPAGLIFLOZIN 10 MG TABLET (JARDIANCE) PO SCH (09:48)
[2021-12-02] MEDS: DULoxetine 20 MG (CYMBALTA) CAP PO SCH (09:49)
[2021-12-02] MEDS: amLODIPine 10 MG (NORVASC) TAB PO SCH (09:50)
[2021-12-02] MEDS: TAMSULOSIN 0.4 MG (FLOMAX) CAP PO SCH (09:50)
[2021-12-02] MEDS: ASPIRIN E.C. 81 MG (ECOTRIN) TAB PO SCH (09:50)
[2021-12-02] MEDS: APIXABAN 5 MG (ELIQUIS) TABLET PO SCH ×2 (09:50→21:11)
[2021-12-02] MEDS: GABAPENTIN 400 MG (NEURONTIN) CAP PO SCH ×4 (09:50→21:11)
[2021-12-02] MEDS: MICONAZOLE 2% POWDER (DESENEX AF) 90 GM TOP SCH ×2 (09:50→21:14)
[2021-12-02] MEDS: DIVALPROEX 250 MG DELAYED RELEASE (DEPAKOTE) TAB PO SCH ×3 (09:50→21:10)
--- NOTE | 2021-12-02 11:21 | Progress Note ---
NGUYEN MAY 12/02/21 1121: Subjective Subjective/Events-last exam Chief Complaint: Scrotal and Lower Extremity Swelling History of Present Illness: Elie Josue is a 56 year old male who was brought to the ER from [facility] on 11/30/21 with chief complaint of severe scrotal and leg swelling. Patient had scrotal swelling since 11/29/21 which progressed to swelling in his legs with severe, aching pain rated at 9/10. 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 CXR on admission showed cardiomegaly with pulmonary vascular congestion and interstitial edema consistent with heart failure. BNP also 304 on admission. Patient was started on fentanyl to control severe scrotal pain and given lasix to decrease volume overload status in the setting of chronic heart failure. Subjective/Events-last exam: Seen 12/01 @ 0910 When I visited the patient this morning, he states that he is in severe pain in his scrotum, thighs, and legs bilaterally. Is alert and responsive to exam and questions. Oriented x2, patient states his name, states he is in [facility], though states that it is Monday, also does not respond when asked what day, month, and year it is. Review of Systems General: Other (Patient only responds enough to say that his scrotum, thighs, and legs are in pain as well as response to orientation questions. Patient not responding to other ROS questions.) Genitourinary: Other (Scrotal pain) Musculoskeletal: leg pain (Thigh and leg pain bilaterally) Objective Exam Last Set of Vital Signs Vital Signs Date Time Temp Pulse Resp B/P (MAP) Pulse Ox O2 Delivery O2 Flow Rate FiO2 12/02/21 09:33 Nasal Cannula 2.00 12/02/21 09:31 94 12/02/21 07:30 37.2 88 20 171/83 (112) Capillary Refill : Less Than 3 Seconds I&O Intake and Output 12/02/21 00:00 Intake Total 4430 ml Output Total 8150 ml Balance -3720 ml Intake Oral 4420 ml IV Total 10 ml Output Urine Total 8150 ml General: Alert, No Acute Distress (Awake, though minimally responsive), Other (Oriented x2, to person and place, not date) HEENT: PERRLA, EOMI Neck: Supple, No JVD Lungs: Clear to Auscultation, Normal Air Movement Heart: Regular Rate, Normal S1, Normal S2, No Murmurs Abdomen: Normal Bowel Sounds, Soft, No Tenderness, Other (Obese abdomen) Extremities: Other (Significant nonpitting edema in legs bilaterally. Appears slightly improved with less tension on the skin due to edema. Stasis dermatitis bilaterally.) Skin: No Rashes (Bilateral lower extremity stasis dermatitis. Multiple vesicular lesions in intertrigenous area. Skin otherwise normal color, warm, and dry.) Neuro: Other Psych/Mental Status: Other (Flat seeming affect. Patient did was minimally responsive while automotive tire testing supervisor was also in the room and asked patient if he would like a electrophysiology tech to visit.) Other physical findings Bilateral scrotum are severly edematous and enlarged. Patient expresses severe pain with examination of scrotum. Multiple vesicular lesions on intertriginous area. Patient also has some blood and whitish discharge at catheter entry site into the urethra. Results/Procedures Lab Laboratory Tests 12/01/21 11:30: Glucometer 295H 12/01/21 14:00: 12/01/21 16:14: Glucometer 249H 12/01/21 20:43: Glucometer 235H 12/02/21 05:00: Glucometer 153H 12/02/21 05:30: White Blood Count 6.6, Red Blood Count 3.49L, Hemoglobin 9.1L, Hematocrit 31L, Mean Corpuscular Volume 89, Mean Corpuscular Hemoglobin 26, Mean Corpuscular Hemoglobin Concent 29L, Red Cell Distribution Width 19.1H, Platelet Count 239, Mean Platelet Volume 13.0H, Sodium Level 144, Potassium Level 4.6, Chloride Level 107, Carbon Dioxide Level 24, Anion Gap 13, Blood Urea Nitrogen 25H, Creatinine 1.52H, Estimat Glomerular Filtration Rate 53, BUN/Creatinine Ratio 16, Glucose Level 163H, Calcium Level 9.6, Magnesium Level 2.0 12/02/21 10:40: Glucometer 192H Assessment/Plan Assessment/Plan Admission Dx Scrotal Swelling Pulmonary Edema Admission Status: Inpatient Order (span 2 midnights) Reason for Inpatient Admission: Severe scrotal edema and acute decompensation of HFpEF Assessment & Plan Assessment: Scrotal Swelling Lower Extremity Swelling Pulmonary Edema Acute Decompensation HFpEF Heart Failure Preserved Ejection Fraction, LVEF 55-60% 11/21/21, BNP 304 on admission Coronary Artery Disease, mild Paroxysmal atrial fibrillation Obesity, Severe Class 3 Chronic Peripheral Edema Stasis Dermatitis- bilateral lower extremities Diabetes Hypertension Bipolar Disorder Neuropathy Anxiety Depression Chronic Kidney Disease GERD Peripheral Vascular Disease History of ischemic Right Frontoparietal Infarct in the Right MCA distribution 06/2015 History of second right MCA stroke in 11/2015 History of Acute Renal Failure requiring hemodialysis 2004. 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 Ordered testing for HSV as well as gonorrhea and chlamydia. Results have not yet returned. Scrotal swelling may also be due to acute decompensation of patient's HFpEF with the findings of bilateral lower extremity edema and CXR findings. Patient takes Tramadol on a regular basis at [facility], We are now giving Fentanyl 50mcg Q1H PRN severe pain control. Controlling Acute Decompensation of HFpEF with lasix may also help with scrotal swelling, bilateral lower extremity edema, and pulmonary interstitial edema. We will continue to provide supportive care with pain control. We will start valacyclovir for genital lesions appearing like HSV. HFpEF, Acute Decompensation: CXR on 11/30/21 showed cardiomegaly with pulmonary vascular congestion and interstitial edema which is sales training representative of this patient's HFpEF with acute decompensation, as well as bilateral lower extremity edema and severe scrotal swelling. Patient has so far received 200mg of Lasix for excess fluid. Patient had PO intake of 4420 mL and output of 8150mL on 12/01. Intake is in quite excess, and nursing shared that the patient has been requesting and drinking a lot of water. We will restrict PO fluid intake to 2000ml/day. Vital signs are stable. Will continue to monitor patient's clinical status and urine output. Use BiPAP at night. Atrial Fibrillation: Anticoagulation with Eliquis is resumed. Beta-lorelei was stopped on patient's last admission due to bradycardia. Metoprolol is stopped during this hospital course. Chronic Kidney Disease: Baseline creatinine unknown but estimated to be 1.6 with previous admissions to [facility], therefore estimated baseline GFR 50 and Stage 3A CKD. Creatinine down to 1.52 today from 1.54 yesterday. Will continue to monitor kidney function with giving lasix. History of Medical Non-compliance: Patient was reluctant to wear BiPAP during his recent visit this year. KIA BENITEZ MD 12/02/21 1615: Supervisory-Addendum Brief Verification & Attestation Participated in pt care: history, MDM, physical Personally performed: exam, history, MDM, supervision of care Care discussed with: Medical Student Procedures: n/a I personally saw and examined patient and repeated the history and exam as documented by the medical student, I directed the plan of care as documented. NGUYEN MAY December 02, 2021 11:21 KIA BENITEZ MD December 02, 2021 16:15
[2021-12-02] MEDS: VALACYCLOVIR 500 MG TAB (VALTREX) PO SCH (17:19)
[2021-12-02] MEDS: doxAzosin 2 MG (CARDURA) TAB PO SCH (21:11)
[2021-12-02] MEDS: MELATONIN 3 MG TABLET PO SCH (21:11)
[2021-12-02] MEDS: ROSUVASTATIN 10 MG (CRESTOR) TABLET PO SCH (21:12)
[2021-12-03 04:00] VITALS: BP 149/61
[2021-12-03] MEDS: inSUlin ASPART (NovoLOG) 1 UNIT/0.01 ML (CHARGE PER UNIT) SC SCH ×2 (05:04→12:05)
[2021-12-03] MEDS: MULTIVIT W/MINERALS TAB (THERAGRAN M) PO SCH (05:05)
[2021-12-03] MEDS: FUROSEMIDE 40 MG/4 ML INJ (LASIX) IVP SCH (05:05)
[2021-12-03] MEDS: CATHETER FLUSH 10 ML SYR IV SCH ×2 (05:06→14:10)
[2021-12-03] MEDS: CATHETER FLUSH 10 ML SYR IVP SCH ×2 (05:06→14:10)
[2021-12-03 05:39] LABS: HEMATOCRIT 34 % (40-54); HEMOGLOBIN 9.7 g/dL (13.3-17.7); MEAN CORPUSCULAR HEMOGLOBIN 25 pg (25-34); MEAN CORPUSCULAR HGB CONC 29 g/dL (32-36); MEAN CORPUSCULAR VOLUME 88 fL (80-99); MEAN PLATELET VOLUME 11.6 fL (9.0-12.2); PLATELET COUNT 269 10^3/uL (130-400); WHITE BLOOD COUNT 6.3 10^3/uL (4.3-11.0)
[2021-12-03 05:52] LABS: POTASSIUM 4.8 MMOL/L (3.6-5.0)
[2021-12-03 05:53] LABS: CALCIUM 9.9 MG/DL (8.5-10.1)
[2021-12-03 05:57] LABS: CREATININE SERUM 1.68 MG/DL (0.60-1.30)
[2021-12-03] MEDS: UMECLIDINIUM BROMIDE (INCRUSE ELLIPTA) 7'S IH SCH (06:52)
[2021-12-03] MEDS: RT--FLUTICASONE/SALMETEROL 232-14 (AIRDUO RespiCLICK) IH SCH (06:52)
[2021-12-03 08:55] VITALS: BP 151/77
[2021-12-03] MEDS ORDERED: FUROSEMIDE 20 MG (LASIX) TAB PO SCH (09:00)
--- NOTE | 2021-12-03 09:24 | Physical Therapy Progress Note ---
Therapy Progress Note Patient adamantly declined PT. PT attempted to encourage patient to perform exercises and/of OOB activity. Patient continued to refuse. 1 ref SAYRA HI PT December 03, 2021 09:24
[2021-12-03] MEDS: EMPAGLIFLOZIN 10 MG TABLET (JARDIANCE) PO SCH (10:21)
[2021-12-03] MEDS: VALACYCLOVIR 500 MG TAB (VALTREX) PO SCH (10:21)
[2021-12-03] MEDS: DIVALPROEX 250 MG DELAYED RELEASE (DEPAKOTE) TAB PO SCH ×2 (10:22→12:06)
[2021-12-03] MEDS: ASPIRIN E.C. 81 MG (ECOTRIN) TAB PO SCH (10:22)
[2021-12-03] MEDS: amLODIPine 10 MG (NORVASC) TAB PO SCH (10:22)
[2021-12-03] MEDS: GABAPENTIN 400 MG (NEURONTIN) CAP PO SCH ×2 (10:22→12:06)
[2021-12-03] MEDS: APIXABAN 5 MG (ELIQUIS) TABLET PO SCH (10:22)
[2021-12-03] MEDS: TAMSULOSIN 0.4 MG (FLOMAX) CAP PO SCH (10:22)
[2021-12-03] MEDS: MICONAZOLE 2% POWDER (DESENEX AF) 90 GM TOP SCH (10:24)
[2021-12-03] MEDS: DULoxetine 20 MG (CYMBALTA) CAP PO SCH (10:24)
--- NOTE | 2021-12-03 11:59 | Discharge Summary ---
Discharge Summary Hospital Course Hospital Course Date of Admission: November 30, 2021 at 15:03 Admission Diagnosis : Family Physician/Provider: Cindy Ford DO Date of Discharge: 12/03/21 Discharge Diagnosis: Scrotal Swelling/Pain, Lower Extremity Swelling, Pulmonary Edema Hospital Course: Elie Josue is a 56 year old male who was brought to the ER from [facility] on 11/30/21 with chief complaint of severe scrotal and leg swelling. History of multiple comorbidities including but not limited to HFpEF, CAD, Paroxysmal AFib, Diabetes, Hypertension, CKD. Also has history of medical non-compliance as he was reluctant to wear BiPAP during a previous visit this year. Patient had scrotal edema since 11/29/21 which progressed to edema in his legs with severe, aching pain rated at 9/10. Patient was initially minimally responsive, only to say he was in severe pain. 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 CXR on admission showed cardiomegaly with pulmonary vascular congestion and interstitial edema consistent with heart failure. BNP also 304 on admission. Patient was started on fentanyl and oxycodone to control severe scrotal pain and given lasix to decrease volume overload status in the setting of chornic heart failure. Patient had multiple vesicular regions on his groin area which was suspected to be HSV. Patient was started on Valacyclovir for HSV appearing lesions. Patient was negative for gonorrhea and chlamydia. Positive for HSV 1 IgM, Negative HSV 1 IgG which is energy conservation representative of a newer HSV 1 infection. Also had elevated HSV II IgG levels and elevated HSV 2 IgM titer. A total of 240mg of Lasix was given, and patient improved with improvement in bilateral leg edema as well as improvement in his general appearance. By the end of his course, patient was in the bed feeding himself and eating all of his meal when I visited in the morning. Atrial fibrillition was managed with Eliquis resumed. Metoprolol was stopped on patient's last admission due to bradycardia and was stopped during this hospital visit. Patient's baseline creatinine is unknown but estimated to be 1.6 based on previous admissions to [facility], therefore has an estimated baseline GFR 50 and Stage 3A CKD. Kidney function monitored while on lasix. Overall, patient improved with less swelling in his legs, improved scrotal pain, and improved leg pain from the swelling. He still has some scrotal pain but said it was improved compared admission, and he was ready to return to [facility]. He was discharged with PO Valacyclovir and with Ott Catheter still in place to allow for HSV to resolve while patient is taking PO Valacyclovir. Labs and Pending Lab Test: Laboratory Tests 12/02/21 15:35: Glucometer 235H 12/02/21 20:42: Glucometer 216H 12/03/21 05:02: Glucometer 143H 12/03/21 05:35: White Blood Count 6.3, Red Blood Count 3.82L, Hemoglobin 9.7L, Hematocrit 34L, Mean Corpuscular Volume 88, Mean Corpuscular Hemoglobin 25, Mean Corpuscular Hemoglobin Concent 29L, Red Cell Distribution Width 18.9H, Platelet Count 269, Mean Platelet Volume 11.6, Sodium Level 147H, Potassium Level 4.8, Chloride Level 109H, Carbon Dioxide Level 23, Anion Gap 15H, Blood Urea Nitrogen 24H, Creatinine 1.68H, Estimat Glomerular Filtration Rate 47, BUN/Creatinine Ratio 14, Glucose Level 145H, Calcium Level 9.9 12/03/21 08:08: Glucometer 132H Home Meds Active Reported Levemir Flextouch (Insulin Detemir) 100 Unit/Ml (3 Ml) Insuln.pen 25 Unit SQ BID Humalog Kwikpen (Insulin Lispro) 200 Unit/Ml (3 Ml) Insuln.pen 20 Unit SQ AC Doxazosin Mesylate 2 Mg Tablet 2 Mg PO Nystatin 100,000 Unit/Gram Powder 1 Applic TP BID APPLY TO ABD FOLD AND GROIN Tramadol HCl 50 Mg Tablet 50 Mg PO Q8HR PRN Symbicort 160-4.5 Mcg Inhaler (Budesonide/Formoterol Fumarate) 160 Mcg-4.5 Mcg/Actuation Hfa.aer.ad 2 Puff IH BID Gabapentin 400 Mg Capsule 400 Mg PO HS TAKES ALONG WITH (800MG) CAP TO TOTAL 1200MG AT BEDTIME Flintstones Complete Chew Tab (Ped Multivit #43/Iron Fumarate) 18 Mg Iron Tab.chew 18 Mg PO DAILY Tobramycin 0.3 % Drops 2 Drops OU QID USE FOR 7 DAYS STARTING 11-27-2021 AND END DATE OF 12-04-2021 Diclofenac Sodium 1 % Gel..gram. 1 Applic TP Q4H PRN Jardiance (Empagliflozin) 25 Mg Tablet 25 Mg PO DAILY Gabapentin 800 Mg Tablet 800 Mg PO TID Ondansetron Odt (Ondansetron) 4 Mg Tab.rapdis 4 Mg PO Q8H PRN Tylenol (Acetaminophen) 325 Mg Tablet 650 Mg PO Q6H PRN Calcium Carbonate 500 Mg Tablet 500 Mg PO Q6H PRN Guaifenesin-Dm 100-10 mg/5 ml (Guaifenesin/Dextromethorphan) 5 Ml Liquid 10 Ml PO Q4H PRN Miralax (Polyethylene Glycol 3350) 17 Gm Powd.pack 17 Gm PO Q12H PRN Meclizine HCl 25 Mg Tablet 25 Mg PO DAILY PRN Docusate Sodium 100 Mg Capsule 100 Mg PO DAILY PRN Loperamide (Loperamide HCl) 2 Mg Tablet 2 Mg PO Q1H PRN MDD 8MG Albuterol Sulfate 2.5 Mg/0.5 Ml Vial.neb 2.5 Mg INH Q8H PRN Metoprolol Tartrate 100 Mg Tablet 100 Mg PO BID HOLD IF PULSE IS LESS THAN 50 AND IF BLOOD PRESSURE LESS THAN 100/50 Melatonin 3 Mg Tablet 3 Mg PO HS Aspirin EC (Aspirin) 81 Mg Tablet.dr 81 Mg PO DAILY Amlodipine Besylate 10 Mg Tablet 10 Mg PO DAILY HOLD FOR PULSE <50 AND BP <100/50 Flomax (Tamsulosin HCl) 0.4 Mg Cap 0.4 Mg PO DAILY Spiriva Respimat 1.25MCG/ACTUATION (Tiotropium [place]) 4 Gm Mist.inhal 2 Puff IH DAILY Furosemide 20 Mg Tablet 60 Mg PO DAILY TAKES 3 (20MG) TABLETS Duloxetine HCl 40 Mg Capsule.dr 40 Mg PO DAILY Alphagan P (Brimonidine Tartrate) 5 Ml Drops 1 Drop OU BID Rosuvastatin Calcium 40 Mg Tablet 40 Mg PO DAILY Eliquis (Apixaban) 5 Mg Tablet 5 Mg PO BID Aripiprazole 10 Mg Tablet 10 Mg PO DAILY Divalproex Sodium 250 Mg Tablet.dr 250 Mg PO TID Discharge Physical Examination Allergies: Coded Allergies: penicillin V (Unverified Allergy, Unknown, 10/01/08) erythromycin base (Unverified Adverse Reaction, Mild, VOMITING, 03/18/13) General Appearance: No Apparent Distress, Chronically ill, Obese HEENT: PERRL/EOMI Respiratory: Chest Non Tender, Lungs Clear, Normal Breath Sounds, No Accessory Muscle Use, No Respiratory Distress Cardiovascular: Regular Rate, Rhythm, Other (Mild edema in lower extremities bilaterally, but much improved from admission.) Gastrointestinal: Normal Bowel Sounds, No Organomegaly, No Pulsatile Mass, Non Tender, Soft, Other (Obese abdomen) Extremity: Normal Capillary Refill (Normal in upper extremity, difficult to assess in lower extremities), Swelling (mild swelling bilateral lower extremities, but much improved from admission. Stasis dermatitis bilateral lower extremities.) Skin: Other (Bilateral lower extremity stasis dermatitis. Multiple vesicular lesions in intertrigenous area. Skin otherwise normal color, warm, and dry) Neurologic/Psychiatric: Alert, Oriented x3 (Oriented to the day (Monday) but not the exact date and year.), Other (Flat affect) Discharge Summary Date of Admission November 30, 2021 at 15:03 Date of Discharge NGUYEN MAY December 03, 2021 11:59
[2021-12-03] MEDS ORDERED: VALA500T4 PO (12:17)
[2021-12-03 12:45] VITALS: BP 157/71
--- NOTE | 2021-12-03 12:56 | Discharge Summary ---
Discharge [facility] Discharge Medications New, Converted or Re-Newed RX: Transmitted to Pharmacy New Medications: Valacyclovir HCl (Valtrex) 500 Mg Tablet 1000 MG PO BID for 9 Days, #18 TAB 0 Refills Continued Medications: Acetaminophen (Tylenol) 325 Mg Tablet 650 MG PO Q6H PRN for PAIN-MILD (1-4), TAB Albuterol Sulfate (Albuterol Sulfate) 2.5 Mg/0.5 Ml Vial.neb 2.5 MG INH Q8H PRN for SHORTNESS OF BREATH, EACH Amlodipine Besylate (Amlodipine Besylate) 10 Mg Tablet 10 MG PO DAILY, TAB HOLD FOR PULSE <50 AND BP <100/50 Apixaban (Eliquis) 5 Mg Tablet 5 MG PO BID Aripiprazole (Aripiprazole) 10 Mg Tablet 10 MG PO DAILY Aspirin (Aspirin EC) 81 Mg Tablet.dr 81 MG PO DAILY, TAB Brimonidine Tartrate (Alphagan P) 5 Ml Drops 1 DROP OU BID, DROPS Budesonide/Formoterol Fumarate (Symbicort 160-4.5 Mcg Inhaler) 160 Mcg-4.5 Mcg/Actuation Hfa.aer.ad 2 PUFF IH BID, EA Calcium Carbonate (Calcium Carbonate) 500 Mg Tablet 500 MG PO Q6H PRN for HEARTBURN, TAB Diclofenac Sodium (Diclofenac Sodium) 1 % Gel..gram. 1 APPLIC TP Q4H PRN for PAIN-BREAKTHROUGH, EA Divalproex Sodium (Divalproex Sodium) 250 Mg Tablet.dr 250 MG PO TID Docusate Sodium (Docusate Sodium) 100 Mg Capsule 100 MG PO DAILY PRN for CONSTIPATION-1ST LINE, CAP Doxazosin Mesylate (Doxazosin Mesylate) 2 Mg Tablet 2 MG PO, TAB Duloxetine HCl (Duloxetine HCl) 40 Mg Capsule.dr 40 MG PO DAILY, CAP Empagliflozin (Jardiance) 25 Mg Tablet 25 MG PO DAILY, TAB Furosemide (Furosemide) 20 Mg Tablet 60 MG PO DAILY, TAB TAKES 3 (20MG) TABLETS Gabapentin (Gabapentin) 800 Mg Tablet 800 MG PO TID, TAB Gabapentin (Gabapentin) 400 Mg Capsule 400 MG PO HS, CAP TAKES ALONG WITH (800MG) CAP TO TOTAL 1200MG AT BEDTIME Guaifenesin/Dextromethorphan (Guaifenesin-Dm 100-10 mg/5 ml) 5 Ml Liquid 10 ML PO Q4H PRN for COUGH, EA Insulin Detemir (Levemir Flextouch) 100 Unit/Ml (3 Ml) Insuln.pen 25 UNIT SQ BID, EA Insulin Lispro (Humalog Kwikpen) 200 Unit/Ml (3 Ml) Insuln.pen 20 UNIT SQ AC, EA Loperamide HCl (Loperamide) 2 Mg Tablet 2 MG PO Q1H PRN for DIARRHEA MDD 8MG, TAB Meclizine HCl (Meclizine HCl) 25 Mg Tablet 25 MG PO DAILY PRN for VERTIGO, TAB Melatonin (Melatonin) 3 Mg Tablet 3 MG PO HS, TAB Metoprolol Tartrate (Metoprolol Tartrate) 100 Mg Tablet 100 MG PO BID, TAB HOLD IF PULSE IS LESS THAN 50 AND IF BLOOD PRESSURE LESS THAN 100/50 Nystatin (Nystatin) 100,000 Unit/Gram Powder 1 APPLIC TP BID, EA APPLY TO ABD FOLD AND GROIN Ondansetron (Ondansetron Odt) 4 Mg Tab.rapdis 4 MG PO Q8H PRN for NAUSEA/VOMITING-1ST LINE, TAB Ped Multivit #43/Iron Fumarate (Flintstones Complete Chew Tab) 18 Mg Iron Tab.chew 18 MG PO DAILY, TAB Polyethylene Glycol 3350 (Miralax) 17 Gm Powd.pack 17 GM PO Q12H PRN for CONSTIPATION-2ND LINE, EACH Rosuvastatin Calcium (Rosuvastatin Calcium) 40 Mg Tablet 40 MG PO DAILY, TAB Tamsulosin HCl (Flomax) 0.4 Mg Cap 0.4 MG PO DAILY, CAP Tiotropium [place] (Spiriva Respimat 1.25MCG/ACTUATION) 4 Gm Mist.inhal 2 PUFF IH DAILY, EA Tobramycin (Tobramycin) 0.3 % Drops 2 DROPS OU QID, DROPS USE FOR 7 DAYS STARTING 11-27-2021 AND END DATE OF 12-04-2021 Tramadol HCl (Tramadol HCl) 50 Mg Tablet 50 MG PO Q8HR PRN for PAIN-MODERATE (5-7), TAB Patient Instructions Goal/Follow Up Appt: Follow up via nursing facility Patient Instructions: Ott left in at d/c given marked scrotal pain, recommend removal when valacyclovir is completed or sooner if he prefers. Return to The Hospital For: Fever, inability to keep down medications, severe shortness of breath Activity & Diet Discharge Diet: Cardiac Diet Activity as Tolerated: Yes KIA BENITEZ MD December 03, 2021 12:56
== END 2021-12-03 15:05 | disposition home or self-care (01) | DRG 291 ==
LOC: EDUNIT# 13:33 → ER 13:38 → 4TH 15:03
PROVIDERS: ADMIT Family Medicine; ATTEND Family Medicine
PROC: 5A09357 Assistance with Respiratory Ventilation, Less than 24 Consecutive Hours, Continuous Positive Airway Pressure (ICD-10-PCS; principal; 2021-11-30)
DX: I13.0 Hypertensive heart and chronic kidney disease with heart failure and stage 1 through stage 4 chronic kidney disease, or unspecified chronic kidney disease (principal); I50.33 Acute on chronic diastolic (congestive) heart failure; Z68.43 Body mass index [BMI] 50.0-59.9, adult; N50.89 Other specified disorders of the male genital organs; N43.3 Hydrocele, unspecified; N18.9 Chronic kidney disease, unspecified; Z91.14 Patient's other noncompliance with medication regimen; F17.210 Nicotine dependence, cigarettes, uncomplicated; E11.22 Type 2 diabetes mellitus with diabetic chronic kidney disease; G40.909 Epilepsy, unspecified, not intractable, without status epilepticus; F31.9 Bipolar disorder, unspecified; F41.9 Anxiety disorder, unspecified; E11.42 Type 2 diabetes mellitus with diabetic polyneuropathy; I25.10 Atherosclerotic heart disease of native coronary artery without angina pectoris; E78.5 Hyperlipidemia, unspecified; I48.0 Paroxysmal atrial fibrillation; Z86.73 Personal history of transient ischemic attack (TIA), and cerebral infarction without residual deficits; E66.9 Obesity, unspecified; K21.9 Gastro-esophageal reflux disease without esophagitis; E11.51 Type 2 diabetes mellitus with diabetic peripheral angiopathy without gangrene; I87.2 Venous insufficiency (chronic) (peripheral); I42.9 Cardiomyopathy, unspecified; M06.9 Rheumatoid arthritis, unspecified; G89.29 Other chronic pain; M54.9 Dorsalgia, unspecified; M79.7 Fibromyalgia; H40.9 Unspecified glaucoma; Z79.82 Long term (current) use of aspirin; Z79.4 Long term (current) use of insulin; Z79.899 Other long term (current) drug therapy
CPT/HCPCS: 36415; 71045; 76870; 80048; 80053; 81000; 82947; 83735; 83880; 84484; 85025; 85027; 86141; 86695; 86696; 87491; 87591; 93005; 93041; 94640; 94660; 94760

== ENCOUNTER 2021-12-04 13:47 | Observation (INO) | payer MEDICARE, MEDICAID ==
[~2021-12-04] VITALS: Ht 187 cm; Wt 156.6 kg
[~2021-12-04 13:47] MED LIST changes: +NYST15PO4 TP; +VALA500T4 PO
--- NOTE | 2021-12-04 14:21 | ED General ---
General Chief Complaint: Unresponsive Stated Complaint: LETHARGIC Nursing Triage Note: PT ARRIVED VIA [facility]. PER EMT'S PT HAD REQUESTED TO COME TO ED D/T LETHARGY. PT ALERT TO SELF AT THE TIME OF ARRIVAL. Source of Information: [facility] Exam Limitations: Physical Impairments History of Present Illness Date Seen by Provider: December 04, 2021 Time Seen by Provider: 14:07 Initial Comments Patient is a 56-year-old male who presents by ambulance with a chief complaint of lethargy/altered mental status. correction did not call report and we have no prior history. On my evaluation the patient is alert with his eyes open, not really speaking. He will not answer questions on my direct examination. As I woke him over and start to talk to him he complains of pain in the suprapubic region with palpation. He does have an indwelling Ott catheter noted. He does not appear short of breath. His blood pressure is adequate. His oxygenation is normal. I do not find any other acute concerns on physical examination. Looking in his oropharynx he demonstrates a good gag reflex trying to push the tongue depressor out of his mouth. Towards the end of my initial evaluation/examination I asked him if he had a headache and he told me no. I asked him if he was nauseous he told me no. I asked him if he know where he was and he said no. On review of the medical record it is noted that he has chronic A. fib with anticoagulation on Eliquis. He is currently in a rate controlled atrial fibrillation at 78 bpm. His blood sugar is greater than 100. Review of systems difficult to obtain secondary to his confused/altered state. Timing/Duration: Other (unsure) Associated Systoms: No Headaches, No Nausea/Vomiting Allergies and Home Medications Allergies Coded Allergies: penicillin V (Unverified Allergy, Unknown, 10/01/08) erythromycin base (Unverified Adverse Reaction, Mild, VOMITING, 03/18/13) Patient Home Medication List Home Medication List Reviewed: Yes Acetaminophen (Tylenol) 325 Mg Tablet, 650 MG PO Q6H PRN for PAIN-MILD (1-4), (Reported) Entered as Reported by: KALEN ALBERTO on 09/17/21 1411 Albuterol Sulfate (Albuterol Sulfate) 2.5 Mg/0.5 Ml Vial.neb, 2.5 MG INH Q8H PRN for SHORTNESS OF BREATH, (Reported) Entered as Reported by: KALEN ALBERTO on 09/17/21 141 Amlodipine Besylate (Amlodipine Besylate) 10 Mg Tablet, 10 MG PO DAILY, (Reported) Entered as Reported by: KALEN ALBERTO on 09/17/21 141 Apixaban (Eliquis) 5 Mg Tablet, 5 MG PO BID, (Reported) Entered as Reported by: JIM GRADY on 12/03/15 100 Aripiprazole (Aripiprazole) 10 Mg Tablet, 10 MG PO DAILY, (Reported) Entered as Reported by: JIM GRADY on 12/03/15 100 Aspirin (Aspirin EC) 81 Mg Tablet.dr, 81 MG PO DAILY, (Reported) Entered as Reported by: KALEN ALBERTO on 09/17/21 141 Brimonidine Tartrate (Alphagan P) 5 Ml Drops, 1 DROP OU BID, (Reported) Entered as Reported by: KERA FELIPE on 02/22/21 141 Budesonide/Formoterol Fumarate (Symbicort 160-4.5 Mcg Inhaler) 160 Mcg-4.5 Mcg/Actuation Hfa.aer.ad, 2 PUFF IH BID, (Reported) Entered as Reported by: RASTA SANCHES on 11/22/21 1202 Calcium Carbonate (Calcium Carbonate) 500 Mg Tablet, 500 MG PO Q6H PRN for HEARTBURN, (Reported) Entered as Reported by: KALEN ALBERTO on 09/17/21 141 Diclofenac Sodium (Diclofenac Sodium) 1 % Gel..gram., 1 APPLIC TP Q4H PRN for PAIN-BREAKTHROUGH, (Reported) Entered as Reported by: OSMANY QUEZADA on 11/20/21 1600 Divalproex Sodium (Divalproex Sodium) 250 Mg Tablet.dr, 250 MG PO TID, (Reported) Entered as Reported by: JIM GRADY on 12/03/15 100 Docusate Sodium (Docusate Sodium) 100 Mg Capsule, 100 MG PO DAILY PRN for CONSTIPATION-1ST LINE, (Reported) Entered as Reported by: KALEN ALBERTO on 09/17/21 141 Doxazosin Mesylate (Doxazosin Mesylate) 2 Mg Tablet, 2 MG PO, (Reported) Entered as Reported by: SHADY CHONG on 12/01/21 105 Duloxetine HCl (Duloxetine HCl) 40 Mg Capsule.dr, 40 MG PO DAILY, (Reported) Entered as Reported by: KERA FELIPE on 02/22/21 141 Empagliflozin (Jardiance) 25 Mg Tablet, 25 MG PO DAILY, (Reported) Entered as Reported by: OSMANY QUEZADA on 11/20/21 1544 Furosemide (Furosemide) 20 Mg Tablet, 60 MG PO DAILY, (Reported) Entered as Reported by: KERA FELIPE on 02/22/21 141 Gabapentin (Gabapentin) 800 Mg Tablet, 800 MG PO TID, (Reported) Entered as Reported by: KALEN ALBERTO on 09/17/21 142 Gabapentin (Gabapentin) 400 Mg Capsule, 400 MG PO HS, (Reported) Entered as Reported by: RASTA SANCHES on 11/22/21 115 Guaifenesin/Dextromethorphan (Guaifenesin-Dm 100-10 mg/5 ml) 5 Ml Liquid, 10 ML PO Q4H PRN for COUGH, (Reported) Entered as Reported by: KALEN ALBERTO on 09/17/21 141 Insulin Detemir (Levemir Flextouch) 100 Unit/Ml (3 Ml) Insuln.pen, 25 UNIT SQ BID, (Reported) Entered as Reported by: SHADY CHONG on 12/01/21 105 Insulin Lispro (Humalog Kwikpen) 200 Unit/Ml (3 Ml) Insuln.pen, 20 UNIT SQ AC, (Reported) Entered as Reported by: SHADY CHONG on 12/01/21 105 Loperamide HCl (Loperamide) 2 Mg Tablet, 2 MG PO Q1H PRN for DIARRHEA, (Reported) Entered as Reported by: KALEN ALBERTO on 09/17/21 141 Meclizine HCl (Meclizine HCl) 25 Mg Tablet, 25 MG PO DAILY PRN for VERTIGO, (Reported) Entered as Reported by: KALEN ALBERTO on 09/17/21 141 Melatonin (Melatonin) 3 Mg Tablet, 3 MG PO HS, (Reported) Entered as Reported by: KALEN ALBERTO on 09/17/21 141 Metoprolol Tartrate (Metoprolol Tartrate) 100 Mg Tablet, 100 MG PO BID, (Reported) Entered as Reported by: KALEN ALBERTO on 09/17/21 141 Nystatin (Nystatin) 100,000 Unit/Gram Powder, 1 APPLIC TP BID, (Reported) Entered as Reported by: RENETTA GAUTHIER on 11/30/21 165 Ondansetron (Ondansetron Odt) 4 Mg Tab.rapdis, 4 MG PO Q8H PRN for NAUSEA/VOMITING-1ST LINE, (Reported) Entered as Reported by: KALEN ALBERTO on 09/17/21 141 Ped Multivit #43/Iron Fumarate (Flintstones Complete Chew Tab) 18 Mg Iron Tab.chew, 18 MG PO DAILY, (Reported) Entered as Reported by: RASTA SANCHES on 11/22/21 1155 Polyethylene Glycol 3350 (Miralax) 17 Gm Powd.pack, 17 GM PO Q12H PRN for CONSTIPATION-2ND LINE, (Reported) Entered as Reported by: KALEN ALBERTO on 09/17/21 141 Rosuvastatin Calcium (Rosuvastatin Calcium) 40 Mg Tablet, 40 MG PO DAILY, (Reported) Entered as Reported by: KERA FELIPE on 02/22/21 141 Tamsulosin HCl (Flomax) 0.4 Mg Cap, 0.4 MG PO DAILY, (Reported) Entered as Reported by: KERA FELIPE on 02/22/21 141 Tiotropium [place] (Spiriva Respimat 1.25MCG/ACTUATION) 4 Gm Mist.inhal, 2 PUFF IH DAILY, (Reported) Entered as Reported by: KERA FELIPE on 02/22/21 141 Tobramycin (Tobramycin) 0.3 % Drops, 2 DROPS OU QID, (Reported) Entered as Reported by: OSMANY QUEZADA on 11/20/21 1609 Tramadol HCl (Tramadol HCl) 50 Mg Tablet, 50 MG PO Q8HR PRN for PAIN-MODERATE (5-7), (Reported) Entered as Reported by: RENETTA GAUTHIER on 11/30/21 165 Valacyclovir HCl (Valtrex) 500 Mg Tablet, 1,000 MG PO BID Prescribed by: KIA BENITEZ on 12/03/21 1217 Discontinued Medications Doxazosin Mesylate (Doxazosin Mesylate) 2 Mg Tablet, 2 MG PO HS Discontinued Reason: Duplicate Order Prescribed by: BAYRON NEGRETE on 11/23/21 0950 Insulin Detemir (Levemir Flextouch) 100 Unit/1 Ml Insuln.pen, 25 UNITS SQ BID Discontinued Reason: Duplicate Order Prescribed by: BAYRON NEGRETE on 11/23/21951 Insulin Lispro (Humalog Kwikpen) 200 Unit/1 Ml Insuln.pen, 20 UNIT SQ TID Discontinued Reason: Duplicate Order Prescribed by: BAYRON NEGRETE on 11/23/2152 Review of Systems Review of Systems Constitutional: see HPI Unable to obtain HPI, review of systems, past medical family or social history secondary to physical impairments/altered mental status. Past Xutyima-Inofkt-Qhiuuo Hx Patient Social History Tobacco Use?: No Smoking Status: Former Smoker Immunizations Up To Date First/Initial COVID19 Vaccinat: 07/16/20 Second COVID19 Vaccination Bryce: 08/05/20 Third COVID19 Vaccination Date: 10/27/21 Seasonal Allergies Seasonal Allergies: No Past Medical History Surgery/Hospitalization HX: DM, HTN, HYPOXIA, BIPOLAR, NEUROPATHY, ANXIETY, CHF, AFIB, CKD, COVID, VERTIGO, GERD Surgeries: Yes Cardiac, Dialysis, Orthopedic, Renal, Vascular Surgery Respiratory: Yes (COMMUNITY ACQUIRED PNEUMONIA) Asthma, Pneumonia Currently Using CPAP: No Currently Using BIPAP: No Cardiac: Yes (PAD) Atrial Fibrillation, Cardiomyopathy, Coronary Artery Disease, High Cholesterol, Hypertension, Peripheral Vascular, Valvular Heart Disease Neurological: Yes (BRAIN INJURY CAUSES EMOTIONS TO CHANGE . LEFT SIDE WEAKNESS) Neuropathy Reproductive Disorders: No Sexually Transmitted Disease: No HIV/AIDS: No Kidney Stones, Renal Failure Gastrointestinal: Yes Colitis, Gastroesophageal Reflux, Diverticulosis, Polyps, Hiatal Hernia Musculoskeletal: Yes (WEAKNESS IN LEGS FROM STROKE ) Arthritis, Fibromyalgia, Rheumatoid Arthritis, Chronic Back Pain Endocrine: Yes Diabetes, Insulin dep Glaucoma Loss of Vision: Bilateral Hearing Impairment: Denies Cancer: No Psychosocial: Yes Sleep Difficulties, Bipolar, Depression Integumentary: No Blood Disorders: Yes (ANEMIA, BLOOD CLOTS ) Family Medical History Cardiovascular disease 19 MOTHER G8 BROTHER Colon cancer 19 MOTHER Completed stroke 19 FATHER Dementia 19 FATHER Diabetes mellitus 19 MOTHER FHx: macular degeneration 19 FATHER Myocardial infarction 19 MOTHER Heart Disease, Diabetes, Hypertension Physical Exam Vital Signs Vital Signs - First Documented 12/04/21 14:07 Temp 36.6 Pulse 78 Resp 26 B/P (MAP) 122/59 (80) Pulse Ox 100 O2 Delivery Nasal Cannula O2 Flow Rate 2.00 Capillary Refill : Height, Weight, BMI Height: 6'2" Weight: 250lbs. 0.0oz. 113.740212fn; 52.25 BMI Method:Estimated General Appearance: No Apparent Distress, WD/WN, Obese Eyes: Bilateral Eye Normal Inspection, Bilateral Eye PERRL, Bilateral Eye EOMI HEENT: PERRL/EOMI, Moist Mucous Membranes Neck: Normal Inspection Respiratory: Lungs Clear, Normal Breath Sounds, No Accessory Muscle Use, No Respiratory Distress Cardiovascular: Regular Rate, Rhythm, Normal Peripheral Pulses Gastrointestinal: Soft, Tenderness (suprapubic region) Extremity: Normal Inspection Neurologic/Psychiatric: Alert, Aphasia (expressive), Depressed Affect, Disoriented, Other (eyes open; miimal verbal response - answeres to "no" when asked if he has a headache or is nauseated. Also answere "no" when asked if he knows where he is; not really following commands - will squeeze my hand more with right hand than left) Skin: Normal Color, Warm/Dry Progress/Results/Core Measures Suspected Sepsis SIRS Temperature: Pulse: 78 Respiratory Rate: 26 Laboratory Tests 12/04/21 14:40: White Blood Count 8.7 Blood Pressure 122 /59 Mean: 80 Laboratory Tests 12/04/21 14:40: Creatinine 2.62#H, Platelet Count 281, Total Bilirubin 0.3 Results/Orders Lab Results Laboratory Tests Test 12/04/21 14:40 12/04/21 14:43 12/04/21 15:20 12/04/21 16:30 Range/Units White Blood Count 8.7 4.3-11.0 10^3/uL Red Blood Count 4.21 L 4.30-5.52 10^6/uL Hemoglobin 10.9 L 13.3-17.7 g/dL Hematocrit 38 L 40-54 % Mean Corpuscular Volume 89 80-99 fL Mean Corpuscular Hemoglobin 26 25-34 pg Mean Corpuscular Hemoglobin Concent 29 L 32-36 g/dL Red Cell Distribution Width 19.3 H 10.0-14.5 % Platelet Count 281 130-400 10^3/uL Mean Platelet Volume 10.9 9.0-12.2 fL Immature Granulocyte % (Auto) 1 % Neutrophils (%) (Auto) 73 42-75 % Lymphocytes (%) (Auto) 11 L 12-44 % Monocytes (%) (Auto) 15 H 0-12 % Eosinophils (%) (Auto) 0 0-10 % Basophils (%) (Auto) 0 0-10 % Neutrophils # (Auto) 6.3 1.8-7.8 X 10^3 Lymphocytes # (Auto) 1.0 1.0-4.0 X 10^3 Monocytes # (Auto) 1.3 H 0.0-1.0 X 10^3 Eosinophils # (Auto) 0.0 0.0-0.3 10^3/uL Basophils # (Auto) 0.0 0.0-0.1 10^3/uL Immature Granulocyte # (Auto) 0.1 0.0-0.1 10^3/uL Sodium Level 154 H 135-145 MMOL/L Potassium Level 5.0 3.6-5.0 MMOL/L Chloride Level 113 H 98-107 MMOL/L Carbon Dioxide Level 23 21-32 MMOL/L Anion Gap 18 H 5-14 MMOL/L Blood Urea Nitrogen 29 H 7-18 MG/DL Creatinine 2.62 #H 0.60-1.30 MG/DL Estimat Glomerular Filtration Rate 28 BUN/Creatinine Ratio 11 Glucose Level 130 H 70-105 MG/DL Calcium Level 10.2 H 8.5-10.1 MG/DL Corrected Calcium 10.8 H 8.5-10.1 MG/DL Total Bilirubin 0.3 0.1-1.0 MG/DL Aspartate Amino Transf (AST/SGOT) 44 H 5-34 U/L Alanine Aminotransferase (ALT/SGPT) 24 0-55 U/L Alkaline Phosphatase 68 40-136 U/L Total Protein 9.0 H 6.4-8.2 GM/DL Albumin 3.3 3.2-4.5 GM/DL Glucometer 120 H 70-110 MG/DL Blood Gas Puncture Site LEFT RADIAL Blood Gas Patient Temperature 36.6 Arterial Blood pH 7.42 7.37-7.43 Arterial Blood Partial Pressure CO2 44 35-45 MMHG Arterial Blood Partial Pressure O2 79 79-93 MMHG Arterial Blood HCO3 28 H 23-27 MMOL/L Arterial Blood Total CO2 29.1 21.0-31.0 MMOL/L Arterial Blood Oxygen Saturation 95 94-100 % Arterial Blood Base Excess 3.4 H -2.5-2.5 MMOL/L Martin Test YES-POS Blood Gas Ventilator Setting NO Blood Gas Inspired Oxygen 2 Urine Color YELLOW Urine Clarity CLEAR Urine pH 7.0 5-9 Urine Specific [place] 1.015 L 1.016-1.022 Urine Protein 3+ H NEGATIVE Urine Glucose (UA) 2+ H NEGATIVE Urine Ketones NEGATIVE NEGATIVE Urine Nitrite NEGATIVE NEGATIVE Urine Bilirubin NEGATIVE NEGATIVE Urine Urobilinogen 1.0 < = 1.0 MG/DL Urine Leukocyte Esterase TRACE H NEGATIVE Urine RBC (Auto) 3+ H NEGATIVE Urine RBC 25-50 H /HPF Urine WBC 10-25 H /HPF Urine Squamous Epithelial Cells NONE /HPF Urine Crystals NONE /LPF Urine Bacteria FEW H /HPF Urine Casts NONE /LPF Urine Mucus NEGATIVE /LPF Urine Culture Indicated YES My Orders Orders - ADILENE POLO MD Ed Iv/Invasive Line Start (12/04/21 14:17) Cbc With Automated Diff (12/04/21 14:17) Comprehensive Metabolic Panel (12/04/21 14:17) Accucheck Stat ONCE (12/04/21 14:17) Ekg Tracing (12/04/21 14:21) Ct Head Wo-R/O Stroke (12/04/21 14:21) Arterial Blood Gas (12/04/21 15:13) Arterial Blood Draw - Obtain (12/04/21 ) Ua Culture If Indicated (12/04/21 15:52) Chest 1 View, Ap/Pa Only (12/04/21 15:52) Urine Culture (12/04/21 16:30) Vital Signs/I&O 12/04/21 14:07 Temp 36.6 Pulse 78 Resp 26 B/P (MAP) 122/59 (80) Pulse Ox 100 O2 Delivery Nasal Cannula O2 Flow Rate 2.00 Capillary Refill : Blood Pressure Mean: 80 Progress Note : Time: 16:58 Progress Note Talked to medical [facility] nursing staff about Mr. Kebede. She states that since he was returned to them yesterday he is just not been "acting like himself". When he woke up this morning he was satting at 83% on room air. He was placed on 3 L of oxygen per nasal cannula and has maintained good oxygen saturations since that time. She states throughout the morning and early afternoon hours he was very weak and shaky. He did eat his lunch about 95% of it she states. Then shortly thereafter laid back in the wheelchair and became more poorly responsive. She states normally he can have a conversation, he is very bright and intelligent. He is normally ambulatory with a wheelchair for assistance. He has been known to refuse therapy many times. No other concerns related other than the mental status and the hypoxemia this morning. ECG Initial ECG Impression Date: December 04, 2021 Initial ECG Impression Time: 14:48 Initial ECG Rate: 78 Initial ECG Rhythm: A Fib/Flutter Initial ECG Impression: Atrial Fibrillation Diagnostic Imaging Diagonstic Imaging: Xray Plain Films/CT/US/NM/MRI: chest Comments NAME: SERG KEBEDE MED REC#: [id number] PT STATUS: REG ER : 1965 PHYSICIAN: ADILENE POLO MD ADMIT DATE: 12/04/21/ER Draft Date of Exam:12/04/21 CHEST 1 VIEW, AP/PA ONLY INDICATION: Altered mental status, confusion. COMPARISON: November 30, 2021. TECHNIQUE: Single radiograph of the chest dated December 04, 2021. FINDINGS: The cardiac silhouette is mildly enlarged. Central pulmonary vascular congestion is identified, similar to the prior examination. Bilateral mixed interstitial and airspace opacities are again seen, similar to the prior examination. Low lung volumes. No significant pleural effusion. No pneumothorax. No acute osseous abnormality. IMPRESSION: Low lung volumes with persistent bilateral pulmonary infiltrates which is favored to relate to pulmonary edema given cardiomegaly and pulmonary vascular congestion. Atypical infection felt less likely. Dictated on workstation # [id number] Dict: 12/04/21 1622 Trans: 12/04/21 1624 [facility] [id number] Interpreted by: JUMA MICHELLE MD Electronically signed by: Diagonstic Imaging: CT Comments : 1965 PHYSICIAN: ADILENE POLO MD ADMIT DATE: 12/04/21/ER Draft Date of Exam:12/04/21 CT HEAD WO-R/O STROKE PROCEDURE: CT head wo r/o stroke. TECHNIQUE: Multiple contiguous axial images were obtained through the brain without the use of intravenous contrast. Auto Exposure Controls were utilized during the CT exam to meet ALARA standards for radiation dose reduction. INDICATION: Altered mental status, confusion, stroke, poor responsiveness. COMPARISON: November 20, 2021. FINDINGS: Moderate diffuse atrophy. Encephalomalacia related to remote infarction within the distribution of the right middle cerebral artery is again identified with resultant ex-vacuo dilatation of the right-sided ventricular system. No intracranial hemorrhage. No intracranial mass, mass effect, midline shift, obstructive hydrocephalus, or suspicious extra-axial fluid collection. No CT evidence of an acute ischemic infarction. Mildly disconjugate gaze. The orbits are otherwise unremarkable. The paranasal sinuses are clear. The calvarium and extracalvarial soft tissues are unremarkable. IMPRESSION: No acute intracranial abnormality. Moderate atrophy with associated chronic ischemic changes including significant encephalomalacia within the distribution of the right middle cerebral artery. Should there remain clinical concern for recent infarction, further evaluation with MRI of the brain would be recommended. Dictated on workstation # [id number] Dict: 12/04/21 1609 Trans: 12/04/21 1637 [id number] Interpreted by: JUMA MICHELLE MD Electronically signed by: Departure Communication (Admissions) Time/Spoke to Admitting Phy: 17:[address] Cuevas Impression Primary Impression: Altered mental status Qualified Codes: R40.0 - Somnolence Additional Impressions: CHF (congestive heart failure) Qualified Codes: I50.9 - Heart failure, unspecified Herpes genitalia Qualified Codes: A60.00 - Herpesviral infection of urogenital system, unspecified Diabetes Qualified Codes: E11.9 - Type 2 diabetes mellitus without complications; Z79.4 - snf (current) use of insulin Disposition: ADMITTED INPATIENT Condition: Stable Admissions Decision to Admit Reason: Admit from ER (General) Decision to Admit/Date: December 04, 2021 Time/Decision to Admit Time: 17:19 Departure-Patient Inst. Referrals: RACHEL LONGORIA DO (PCP/Family) Primary Care Physician ADILENE POLO MD December 04, 2021 14:21
[2021-12-04 14:59] LABS: BASOPHILS % (AUTO) 0 % (0-10); EOSINOPHILS % (AUTO) 0 % (0-10); HEMATOCRIT 38 % (40-54); HEMOGLOBIN 10.9 g/dL (13.3-17.7); LYMPHOCYTES % (AUTO) 11 % (12-44); MEAN CORPUSCULAR HEMOGLOBIN 26 pg (25-34); MEAN CORPUSCULAR HGB CONC 29 g/dL (32-36); MEAN CORPUSCULAR VOLUME 89 fL (80-99); MEAN PLATELET VOLUME 10.9 fL (9.0-12.2); MONOCYTES # (AUTO) 1.3 X 10^3 (0.0-1.0); MONOCYTES % (AUTO) 15 % (0-12); NEUTROPHILS # (AUTO) 6.3 X 10^3 (1.8-7.8); NEUTROPHILS % (AUTO) 73 % (42-75); PLATELET COUNT 281 10^3/uL (130-400); WHITE BLOOD COUNT 8.7 10^3/uL (4.3-11.0)
[2021-12-04 15:21] LABS: ALBUMIN 3.3 GM/DL (3.2-4.5)
[2021-12-04 15:22] LABS: CALCIUM 10.2 MG/DL (8.5-10.1)
[2021-12-04 15:25] LABS: BILIRUBIN,TOTAL 0.3 MG/DL (0.1-1.0)
[2021-12-04 15:27] LABS: CREATININE SERUM 2.62 MG/DL (0.60-1.30)
[2021-12-04 15:32] LABS: ABG BASE EXCESS 3.4 MMOL/L (-2.5-2.5); ABG OXYGEN SATURATION 95 % (94-100); ABG PCO2 44 MMHG (35-45); ABG PH 7.42 (7.37-7.43); ABG PO2 79 MMHG (79-93); ABG TCO2 29.1 MMOL/L (21.0-31.0)
[2021-12-04 15:33] LABS: ALLENS TEST YES-POS; INSPIRED O2 2; PATIENT TEMP 36.6; VENTILATOR NO
--- NOTE | 2021-12-04 16:25 | Diagnostic Imaging Report ---
INDICATION: Altered mental status, confusion. COMPARISON: November 30, 2021. TECHNIQUE: Single radiograph of the chest dated December 04, 2021. FINDINGS: The cardiac silhouette is mildly enlarged. Central pulmonary vascular congestion is identified, similar to the prior examination. Bilateral mixed interstitial and airspace opacities are again seen, similar to the prior examination. Low lung volumes. No significant pleural effusion. No pneumothorax. No acute osseous abnormality. IMPRESSION: Low lung volumes with persistent bilateral pulmonary infiltrates which is favored to relate to pulmonary edema given cardiomegaly and pulmonary vascular congestion. Atypical infection felt less likely. Dictated by: Dictated on workstation # [id number]
[2021-12-04 16:38] LABS: BILIRUBIN,URINE NEGATIVE (NEGATIVE); CLARITY,URINE CLEAR; COLOR,URINE YELLOW; GLUCOSE, URINE (UA) 2+ (NEGATIVE); KETONES,URINE NEGATIVE (NEGATIVE); LEUKOCYTE ESTERASE ,URINE TRACE (NEGATIVE); NITRITE,URINE NEGATIVE (NEGATIVE); PROTEIN,URINE 3+ (NEGATIVE)
--- NOTE | 2021-12-04 16:39 | Diagnostic Imaging Report ---
PROCEDURE: CT head wo r/o stroke. TECHNIQUE: Multiple contiguous axial images were obtained through the brain without the use of intravenous contrast. Auto Exposure Controls were utilized during the CT exam to meet ALARA standards for radiation dose reduction. INDICATION: Altered mental status, confusion, stroke, poor responsiveness. COMPARISON: November 20, 2021. FINDINGS: Moderate diffuse atrophy. Encephalomalacia related to remote infarction within the distribution of the right middle cerebral artery is again identified with resultant ex-vacuo dilatation of the right-sided ventricular system. No intracranial hemorrhage. No intracranial mass, mass effect, midline shift, obstructive hydrocephalus, or suspicious extra-axial fluid collection. No CT evidence of an acute ischemic infarction. Mildly disconjugate gaze. The orbits are otherwise unremarkable. The paranasal sinuses are clear. The calvarium and extracalvarial soft tissues are unremarkable. IMPRESSION: No acute intracranial abnormality. Moderate atrophy with associated chronic ischemic changes including significant encephalomalacia within the distribution of the right middle cerebral artery. Should there remain clinical concern for recent infarction, further evaluation with MRI of the brain would be recommended. Dictated by: Dictated on workstation # [id number]
[2021-12-04 16:45] LABS: BACTERIA,URINE FEW /HPF; RBC,URINE 25-50 /HPF
--- NOTE | 2021-12-04 18:06 | Tele-ICU Progress Note ---
Progress Note 56 y/o male from a NH presents with AMS and c/o suprapubic pain. Has chronic indwelling reina CT head Moderate diffuse atrophy. Encephalomalacia related to remote infarction within the distribution of the right middle cerebral artery is again identified with resultant ex-vacuo dilatation of the right-sided ventricular system. No intracranial hemorrhage. No intracranial mass, mass effect, midline shift, obstructive hydrocephalus, or suspicious extra-axial fluid collection. No CT evidence of an acute ischemic infarction. Mildly disconjugate gaze. The orbits are otherwise unremarkable. The paranasal sinuses are clear. The calvarium and extracalvarial soft tissues are unremarkable. IMPRESSION: No acute intracranial abnormality. Moderate atrophy with associated chronic ischemic changes including significant encephalomalacia within the distribution of the right middle cerebral artery. Labs: hypernatremia and JARRET PLAN: admit to ICU for neuro checks, hydration Focused Exam Height, Weight, BMI Height: 6'2" Weight: 250lbs. 0.0oz. 113.504410vq; 52.25 BMI Method:Estimated Laboratory Tests 12/04/21 14:40 Results Results/Procedures Lab Laboratory Tests 12/04/21 14:40 Results Labs Labs Laboratory Tests 12/04/21 14:40: White Blood Count 8.7, Red Blood Count 4.21L, Hemoglobin 10.9L, Hematocrit 38L, Mean Corpuscular Volume 89, Mean Corpuscular Hemoglobin 26, Mean Corpuscular Hemoglobin Concent 29L, Red Cell Distribution Width 19.3H, Platelet Count 281, Mean Platelet Volume 10.9, Immature Granulocyte % (Auto) 1, Neutrophils (%) (Auto) 73, Lymphocytes (%) (Auto) 11L, Monocytes (%) (Auto) 15H, Eosinophils (%) (Auto) 0, Basophils (%) (Auto) 0, Neutrophils # (Auto) 6.3, Lymphocytes # (Auto) 1.0, Monocytes # (Auto) 1.3H, Eosinophils # (Auto) 0.0, Basophils # (Auto) 0.0, Immature Granulocyte # (Auto) 0.1, Sodium Level 154H, Potassium Level 5.0, Chloride Level 113H, Carbon Dioxide Level 23, Anion Gap 18H, Blood Urea Nitrogen 29H, Creatinine 2.62#H, Estimat Glomerular Filtration Rate 28, BUN/Creatinine Ratio 11, Glucose Level 130H, Calcium Level 10.2H, Corrected Calcium 10.8H, Total Bilirubin 0.3, Aspartate Amino Transf (AST/SGOT) 44H, Alanine Amino transferase (ALT/SGPT) 24, Alkaline Phosphatase 68, Total Protein 9.0H, Albumin 3.3 12/04/21 14:43: Glucometer 120H 12/04/21 15:20: Blood Gas Puncture Site LEFT RADIAL, Blood Gas Patient Temperature 36.6, Arterial Blood pH 7.42, Arterial Blood Partial Pressure CO2 44, Arterial Blood Partial Pressure O2 79, Arterial Blood HCO3 28H, Arterial Blood Total CO2 29.1, Arterial Blood Oxygen Saturation 95, Arterial Blood Base Excess 3.4H, Martin Test YES-POS, Blood Gas Ventilator Setting NO, Blood Gas Inspired Oxygen 2 12/04/21 16:30: Urine Color YELLOW, Urine Clarity CLEAR, Urine pH 7.0, Urine Specific [place] 1.015L, Urine Protein 3+H, Urine Glucose (UA) 2+H, Urine Ketones NEGATIVE, Urine Nitrite NEGATIVE, Urine Bilirubin NEGATIVE, Urine Urobilinogen 1.0, Urine Leukocyte Esterase TRACEH, Urine RBC (Auto) 3+H, Urine RBC 25-50H, Urine WBC 10- 25H, Urine Squamous Epithelial Cells NONE, Urine Crystals NONE, Urine Bacteria FEWH, Urine Casts NONE, Urine Mucus NEGATIVE, Urine Culture Indicated YES TIMOTHY FLORES MD December 04, 2021 18:06
[2021-12-04 19:41] VITALS: BP 122/59
[2021-12-04] MEDS ORDERED: RT-ALBUTEROL SULF 2.5 MG/3 ML PRE-MIX VIAL INH PRN (20:00)
[2021-12-04] MEDS ORDERED: CATHETER FLUSH 10 ML SYR IVP PRN (20:30)
[2021-12-04] MEDS ORDERED: TOBRAMYCIN (TOBREX) 0.3% OPHTH SOLN 5 ML OU SCH (21:00)
[2021-12-04] MEDS: NovoLOG/HumaLOG RANGE A SC SCH (21:04)
[2021-12-04] MEDS: VALACYCLOVIR 500 MG TAB (VALTREX) PO SCH (21:05)
[2021-12-04] MEDS: meTOprolol TARTRATE 50 MG (LOPRESSOR) TAB PO SCH (21:05)
[2021-12-04] MEDS: APIXABAN 5 MG (ELIQUIS) TABLET PO SCH (21:05)
[2021-12-04] MEDS: CATHETER FLUSH 10 ML SYR IVP SCH (21:31)
[2021-12-05 05:12] LABS: BASOPHILS # (AUTO) 0.1 10^3/uL (0.0-0.1); BASOPHILS % (AUTO) 1 % (0-10); EOSINOPHILS % (AUTO) 0 % (0-10); HEMATOCRIT 33 % (40-54); HEMOGLOBIN 9.5 g/dL (13.3-17.7); LYMPHOCYTES # (AUTO) 0.8 10^3/uL (1.0-4.0); LYMPHOCYTES % (AUTO) 10 % (12-44); MEAN CORPUSCULAR HEMOGLOBIN 26 pg (25-34); MEAN CORPUSCULAR HGB CONC 29 g/dL (32-36); MEAN CORPUSCULAR VOLUME 90 fL (80-99); MEAN PLATELET VOLUME 11.1 fL (9.0-12.2); MONOCYTES # (AUTO) 1.3 10^3/uL (0.0-1.0); MONOCYTES % (AUTO) 16 % (0-12); NEUTROPHILS # (AUTO) 5.7 10^3/uL (1.8-7.8); NEUTROPHILS % (AUTO) 72 % (42-75); PLATELET COUNT 223 10^3/uL (130-400)
[2021-12-05 05:21] LABS: POTASSIUM 4.8 MMOL/L (3.6-5.0)
[2021-12-05 05:27] LABS: CREATININE SERUM 2.38 MG/DL (0.60-1.30)
[2021-12-05] MEDS: FUROSEMIDE 20 MG (LASIX) TAB PO SCH (05:53)
[2021-12-05] MEDS: CATHETER FLUSH 10 ML SYR IVP SCH ×3 (05:53→21:48)
[2021-12-05] MEDS: NovoLOG/HumaLOG RANGE A SC SCH ×4 (06:03→21:45)
[2021-12-05] MEDS: APIXABAN 5 MG (ELIQUIS) TABLET PO SCH ×2 (09:15→21:35)
[2021-12-05] MEDS: meTOprolol TARTRATE 50 MG (LOPRESSOR) TAB PO SCH ×2 (09:16→21:35)
[2021-12-05] MEDS: VALACYCLOVIR 500 MG TAB (VALTREX) PO SCH ×2 (09:16→21:35)
[2021-12-05] MEDS: amLODIPine 10 MG (NORVASC) TAB PO SCH (09:16)
[2021-12-05] MEDS: ASPIRIN 81 MG CHEW (CHILDREN'S ASA) PO SCH (09:16)
--- NOTE | 2021-12-05 09:33 | History & Physical-Hospitalist ---
History of Present Illness HPI/Chief Complaint Patient is a 56-year-old -[place] male who was recently admitted to the hospital twice this month with CHF exacerbation. He resides at [facility] and was discharged from the hospital yesterday back to their and staff did not think he was at his normal then. He got up yesterday and was hypoxic requiring 3 L of oxygen per nasal cannula. He ate breakfast but then was quite lethargic throughout the day and seemed weak and shaky. He became less and less responsive throughout the day and EMS was called. Per ER note the [facility] states he is normally able to feed himself and is very bright and intelligent and ambulatory with a wheelchair. He was found to have an JARRET and persistent pulmonary edema on imaging and was admitted for further management. On my exam today he is quite odd in his mentation. He speaks clearly when he wants to and was able to tell me about how he likes to go fishing but when asked anything about yesterday or his health he would quit making eye contact stare blankly in front of me and refused to respond. Thus all history is obtained from the records. Source: patient Date Seen 12/05/21 Time Seen by a Provider: 09:00 Attending Physician Stanislav Nunez MD PCP Admitting Physician: Ana Cuevas MD Attending Physician: Ana Cuevas MD Referring Physician Date of Admission December 04, 2021 at 17:08 Home Medications & Allergies Home Medications Reviewed patient Home Medication Reconciliation performed by pharmacy medication reconciliations plumbing service technician and/or nursing. Patients Allergies have been reviewed. Allergies Allergies Coded Allergies penicillin V (Unverified Allergy, Unknown, 10/01/08) erythromycin base (Unverified Adverse Reaction, Mild, VOMITING, 03/18/13) Past Qyrqlpu-[id number]-Gbjowx Hx Patient Social History Employed/Student: unemployed Tobacco Use?: No Smoking Status: Former Smoker Immunizations Up To Date First/Initial COVID19 Vaccinat: 07/16/20 Second COVID19 Vaccination Bryce: 08/05/20 Tetanus Booster (TDap): Unknown Hepatitis A: No Hepatitis B: No Date of Pneumonia Vaccine: Mar 20, 2013 Seasonal Allergies Seasonal Allergies: No Current Status Advance Directives: No Primary Language: Croatian Preferred Spoken Language: Croatian Past Medical History Surgeries: Cardiac, Dialysis, Orthopedic, Renal, Vascular Surgery Asthma, Pneumonia Currently Using CPAP: No Currently Using BIPAP: No Atrial Fibrillation, Cardiomyopathy, Coronary Artery Disease, High Cholesterol, Hypertension, Peripheral Vascular, Valvular Heart Disease Neuropathy Sexually Transmitted Disease: No HIV/AIDS: No Kidney Stones, Renal Failure Colitis, Gastroesophageal Reflux, Diverticulosis, Polyps, Hiatal Hernia Arthritis, Fibromyalgia, Rheumatoid Arthritis, Chronic Back Pain Diabetes, Insulin dep Glaucoma Loss of Vision: Bilateral Hearing Impairment: Denies Sleep Difficulties, Bipolar, Depression Blood Disorders: Yes (ANEMIA, BLOOD CLOTS ) Past Medical History 1. Diabetes Mellitus 2. Hypertension 3. Seizure Disorder- history of grand mal per pt. report (no records of neurology evaluation) 4. Bi-polar Disorder 5. Depression 6. Anxiety 7. Peripheral Neuropathy 8. History of Acute Renal Failure requiring hemodialysis 2003. 9. History of superficial RUE venous thrombus due to central line placement 10. History of chronic joint pain. 11. Chronic Peripheral Edema 12. Tobaccoism 13. 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 14. Diastolic dysfunction due to uncontrolled hypertension 15. Mild coronary artery disease per cath 16. Hyperlipidemia 17. Non-compliance with follow up and medication use 18. Hx ischemic Right Frontoparietal Infarct in the Right MCA distribution 06/2015 19. Hx of second right MCA stroke in 11/2015 20. Paroxysmal atrial fibrillation Family Medical History Reviewed Nursing Family Hx Cardiovascular disease 19 MOTHER G8 BROTHER Colon cancer 19 MOTHER Completed stroke 19 FATHER Dementia 19 FATHER Diabetes mellitus 19 MOTHER FHx: macular degeneration 19 FATHER Myocardial infarction 19 MOTHER Heart Disease, Diabetes, Hypertension Review of Systems ROS-Unable to Obtain: would not answer questions regarding his health Constitutional: see HPI Physical Exam Physical Exam Vital Signs Vital Signs - First Documented 12/04/21 12/04/21 14:07 19:41 Temp 36.6 Pulse 78 Resp 26 B/P (MAP) 122/59 (80) Pulse Ox 100 O2 Delivery Nasal Cannula O2 Flow Rate 2.00 FiO2 28 Capillary Refill : Less Than 3 Seconds Height, Weight, BMI Height: 6'2" Weight: 250lbs. 0.0oz. 113.572707lh; 47.18 BMI Method:Estimated General Appearance: No Apparent Distress, Chronically ill, Obese HEENT: PERRL/EOMI, Moist Mucous Membranes Neck: Full Range of Motion, Supple Respiratory: Lungs Clear (as far as I could ausculate but limited by body habitus), No Accessory Muscle Use, No Respiratory Distress Cardiovascular: Regular Rate, Rhythm Gastrointestinal: Normal Bowel Sounds, Non Tender, Soft Neurologic/Psychiatric: Alert, Oriented x3, Normal Mood/Affect Skin: Normal Color, Warm/Dry Results Results/Procedures Labs Laboratory Tests 12/07/21 05:15 12/08/21 05:13 Patient resulted labs reviewed. Imaging: Reviewed Imaging Report [facility] [place], [place] NAME: SERG KEBEDE Gretel [facility] REC#: [id number] PT STATUS: ADM Bryson : 1965 PHYSICIAN: ADILENE POLO MD ADMIT DATE: 12/04/21/ICU Signed Date of Exam:12/04/21 CT HEAD WO-R/O STROKE PROCEDURE: CT head wo r/o stroke. TECHNIQUE: Multiple contiguous axial images were obtained through the brain without the use of intravenous contrast. Auto Exposure Controls were utilized during the CT exam to meet ALARA standards for radiation dose reduction. INDICATION: Altered mental status, confusion, stroke, poor responsiveness. COMPARISON: November 20, 2021. FINDINGS: Moderate diffuse atrophy. Encephalomalacia related to remote infarction within the distribution of the right middle cerebral artery is again identified with resultant ex-vacuo dilatation of the right-sided ventricular system. No intracranial hemorrhage. No intracranial mass, mass effect, midline shift, obstructive hydrocephalus, or suspicious extra-axial fluid collection. No CT evidence of an acute ischemic infarction. Mildly disconjugate gaze. The orbits are otherwise unremarkable. The paranasal sinuses are clear. The calvarium and extracalvarial soft tissues are unremarkable. IMPRESSION: No acute intracranial abnormality. Moderate atrophy with associated chronic ischemic changes including significant encephalomalacia within the distribution of the right middle cerebral artery. Should there remain clinical concern for recent infarction, further evaluation with MRI of the brain would be recommended. Dictated by: Dictated on workstation # [id number] Dict: 12/04/21 1609 Trans: 12/04/211814 AS6 [id number] Interpreted by: JUMA MICHELLE MD Electronically signed by: JUMA MICHELLE MD 12/04/211814 [facility]. [place] [place] NAME: SERG KEBEDE MED REC#: [id number] PT STATUS: ADM Bryson : 1965 PHYSICIAN: ADILENE POLO MD ADMIT DATE: 12/04/21/ICU Signed Date of Exam:12/04/21 CHEST 1 VIEW, AP/PA ONLY INDICATION: Altered mental status, confusion. COMPARISON: November 30, 2021. TECHNIQUE: Single radiograph of the chest dated December 04, 2021. FINDINGS: The cardiac silhouette is mildly enlarged. Central pulmonary vascular congestion is identified, similar to the prior examination. Bilateral mixed interstitial and airspace opacities are again seen, similar to the prior examination. Low lung volumes. No significant pleural effusion. No pneumothorax. No acute osseous abnormality. IMPRESSION: Low lung volumes with persistent bilateral pulmonary infiltrates which is favored to relate to pulmonary edema given cardiomegaly and pulmonary vascular congestion. Atypical infection felt less likely. Dictated by: Dictated on workstation # [id number] Dict: 12/04/21 1622 Trans: 12/04/21 1811 [facility] [id number] Interpreted by: JUMA MICHELLE MD Electronically signed by: JUMA MICHELLE MD 12/04/211810 Assessment/Plan Admission Diagnosis AMS Admission Status: Inpatient Order (span 2 midnights) Reason for Inpatient Admission: see below Assessment and Plan AMS JARRET on CKD Stage 3 Bipolar Disorder Neuropathy Unsure of etiology at this time but CT head negative and no obvious source on lab work Most likely is due to JARRET and slow metabolism of his medications Though some of it is intentional as he is quite talkative about what he would like to talk about Creatinine improved today, trend Hold nephrotoxic agents as able Can transfer out of ICU I did attempt to test for COVID but test not resulting for some reason sendout ordered Pulmonary Edema HFpEF Coronary Artery Disease, mild Paroxysmal atrial fibrillation Hypertension Peripheral Vascular Disease CXR stable Continue lasix as able due to hypoxia but monitor closely with JARRET Continue home meds Scrotal Swelling Continue home valtrex Maintain reina-POA Diabetes Continue home meds BS well controlled for the most part while here Obesity Stasis Dermatitis- bilateral lower extremities Anemia of CKD No acute needs ANA CUEVAS MD December 05, 2021 09:33
[2021-12-05] MEDS: GABAPENTIN 100 MG (NEURONTIN) CAP PO PRN (23:12)
[2021-12-06] MEDS: NovoLOG/HumaLOG RANGE A SC SCH ×4 (05:20→20:28)
[2021-12-06] MEDS: CATHETER FLUSH 10 ML SYR IVP SCH ×2 (05:21→17:45)
[2021-12-06] MEDS: FUROSEMIDE 20 MG (LASIX) TAB PO SCH (06:09)
[2021-12-06] MEDS: VALACYCLOVIR 500 MG TAB (VALTREX) PO SCH ×2 (08:51→20:27)
[2021-12-06] MEDS: ASPIRIN 81 MG CHEW (CHILDREN'S ASA) PO SCH (08:51)
[2021-12-06] MEDS: amLODIPine 10 MG (NORVASC) TAB PO SCH (08:51)
[2021-12-06] MEDS: meTOprolol TARTRATE 50 MG (LOPRESSOR) TAB PO SCH ×2 (08:51→20:27)
[2021-12-06] MEDS: APIXABAN 5 MG (ELIQUIS) TABLET PO SCH ×2 (08:51→20:27)
[2021-12-06 11:41] LABS: HEMATOCRIT 34 % (40-54); HEMOGLOBIN 9.4 g/dL (13.3-17.7); MEAN CORPUSCULAR HEMOGLOBIN 26 pg (25-34); MEAN CORPUSCULAR HGB CONC 28 g/dL (32-36); MEAN CORPUSCULAR VOLUME 92 fL (80-99); MEAN PLATELET VOLUME 11.7 fL (9.0-12.2); PLATELET COUNT 160 10^3/uL (130-400); WHITE BLOOD COUNT 5.8 10^3/uL (4.3-11.0)
[2021-12-06 11:48] LABS: POTASSIUM 4.8 MMOL/L (3.6-5.0)
[2021-12-06 11:49] LABS: CALCIUM 8.2 MG/DL (8.5-10.1)
[2021-12-06 11:53] LABS: CREATININE SERUM 2.6 MG/DL (0.60-1.30)
--- NOTE | 2021-12-06 12:28 | Progress Note - Hospitalist ---
Subjective HPI/CC On Admission Date Seen by Provider: December 06, 2021 Patient is a 56-year-old -[place] male who was recently admitted to the hospital twice this month with CHF exacerbation. He resides at [facility] and was discharged from the hospital yesterday back to their and staff did not think he was at his normal then. He got up yesterday and was hypoxic requiring 3 L of oxygen per nasal cannula. He ate breakfast but then was quite lethargic throughout the day and seemed weak and shaky. He became less and less responsive throughout the day and EMS was called. Per ER note the [facility] states he is normally able to feed himself and is very bright and intelligent and ambulatory with a wheelchair. He was found to have an JARRET and persistent pulmonary edema on imaging and was admitted for further management. On my exam today he is quite odd in his mentation. He speaks clearly when he wants to and was able to tell me about how he likes to go fishing but when asked anything about yesterday or his health he would quit making eye contact stare blankly in front of me and refused to respond. Thus all history is obtained from the records. Subjective/Events-last exam Patient lying in bed with sheet over his head. When I asked him to take this down so we could talk he declined. He had no medical complaints. He complained multiple times about being woken up from sleep. He states he never wants woken up when he is sleeping. I explained that this would be impossible in the hospital as we have to check vitals at certain times but that we can try to let him sleep as much as is safe. He again just complains that he does not want woken up. Objective Exam Vital Signs Vital Signs Date Time Temp Pulse Resp B/P (MAP) Pulse Ox O2 Delivery O2 Flow Rate FiO2 12/06/21 11:08 36.7 70 20 118/57 99 Nasal Cannula 3.00 12/05/21 22:27 3 Capillary Refill : Less Than 3 Seconds General Appearance: No Apparent Distress, Chronically ill, Other (laying in bed with sheet over his head) Respiratory: Lungs Clear, No Respiratory Distress Cardiovascular: Regular Rate, Rhythm, No Murmur Neurologic/Psychiatric: Alert, Oriented x3 Results/Procedures Lab Laboratory Tests 12/06/21 11:23 Patient resulted labs reviewed. Imaging: Reviewed Imaging Report Assessment/Plan Assessment and Plan Assess & Plan/Chief Complaint AMS JARRET on CKD Stage 3 Bipolar Disorder Neuropathy Unsure of etiology at this time but CT head negative and no obvious source on lab work Most likely is due to JARRET and slow metabolism of his medications Though some of it is intentional as he is quite talkative about what he would like to talk about Creatinine pending today Hold nephrotoxic agents as able COVID send out negative Pulmonary Edema HFpEF Coronary Artery Disease, mild Paroxysmal atrial fibrillation Hypertension Peripheral Vascular Disease CXR stable Continue lasix as able due to hypoxia but monitor closely with JARRET Continue home meds Scrotal Swelling Continue home valtrex Maintain reina-POA Diabetes Continue home meds BS trending up, add back Levemir and continue SSI Obesity Stasis Dermatitis- bilateral lower extremities Anemia of CKD No acute needs ANA MCGUIRE MD December 06, 2021 12:28
[2021-12-06] MEDS: GABAPENTIN 100 MG (NEURONTIN) CAP PO PRN (20:27)
[2021-12-07 05:41] LABS: HEMATOCRIT 33 % (40-54); HEMOGLOBIN 9.9 g/dL (13.3-17.7); MEAN CORPUSCULAR HEMOGLOBIN 26 pg (25-34); MEAN CORPUSCULAR HGB CONC 30 g/dL (32-36); MEAN CORPUSCULAR VOLUME 88 fL (80-99); PLATELET COUNT 186 10^3/uL (130-400)
[2021-12-07] MEDS: CATHETER FLUSH 10 ML SYR IVP SCH ×3 (05:53→22:06)
[2021-12-07 06:01] LABS: POTASSIUM 4.4 MMOL/L (3.6-5.0)
[2021-12-07 06:02] LABS: CALCIUM 8.3 MG/DL (8.5-10.1)
[2021-12-07 06:06] LABS: CREATININE SERUM 2.37 MG/DL (0.60-1.30)
[2021-12-07] MEDS: FUROSEMIDE 20 MG (LASIX) TAB PO SCH (06:11)
[2021-12-07] MEDS: NovoLOG/HumaLOG RANGE A SC SCH ×4 (06:12→22:03)
[2021-12-07 08:08] VITALS: BP 125/69
[2021-12-07] MEDS: APIXABAN 5 MG (ELIQUIS) TABLET PO SCH ×2 (09:19→22:03)
[2021-12-07] MEDS: meTOprolol TARTRATE 50 MG (LOPRESSOR) TAB PO SCH ×2 (09:20→22:03)
[2021-12-07] MEDS: ASPIRIN 81 MG CHEW (CHILDREN'S ASA) PO SCH (09:20)
[2021-12-07] MEDS: amLODIPine 10 MG (NORVASC) TAB PO SCH (09:20)
[2021-12-07] MEDS: VALACYCLOVIR 500 MG TAB (VALTREX) PO SCH ×2 (09:20→22:04)
[2021-12-07 11:14] VITALS: BP 103/47
--- NOTE | 2021-12-07 13:40 | Progress Note - Hospitalist ---
Subjective HPI/CC On Admission Date Seen by Provider: December 07, 2021 Time Seen by Provider: 13:37 Patient is a 56-year-old -[place] male who was recently admitted to the hospital twice this month with CHF exacerbation. He resides at [facility] and was discharged from the hospital yesterday back to their and staff did not think he was at his normal then. He got up yesterday and was hypoxic requiring 3 L of oxygen per nasal cannula. He ate breakfast but then was quite lethargic throughout the day and seemed weak and shaky. He became less and less responsive throughout the day and EMS was called. Per ER note the senior living states he is normally able to feed himself and is very bright and intelligent and ambulatory with a wheelchair. He was found to have an JARRET and persistent pulmonary edema on imaging and was admitted for further management. On my exam today he is quite odd in his mentation. He speaks clearly when he wants to and was able to tell me about how he likes to go fishing but when asked anything about yesterday or his health he would quit making eye contact stare blankly in front of me and refused to respond. Thus all history is obtained from the records. Subjective/Events-last exam Pt reports doing well. No complaints. Again did not remove the sheet from his face and again tells me he just wants to go fishing. Objective Exam Vital Signs Vital Signs Date Time Temp Pulse Resp B/P (MAP) Pulse Ox O2 Delivery O2 Flow Rate FiO2 12/07/21 11:14 35.9 59 20 103/47 (65) 90 Nasal Cannula 3.00 12/05/21 22:27 3 Capillary Refill : Less Than 3 Seconds General Appearance: No Apparent Distress, WD/WN, Obese Respiratory: Lungs Clear, No Respiratory Distress Cardiovascular: Regular Rate, Rhythm, No Murmur Neurologic/Psychiatric: Alert, Oriented x3 Results/Procedures Lab Laboratory Tests 12/07/21 05:15 Patient resulted labs reviewed. Imaging: Reviewed Imaging Report Assessment/Plan Assessment and Plan Assess & Plan/Chief Complaint AMS JARRET on CKD Stage 3 Bipolar Disorder Neuropathy Unsure of etiology at this time but CT head negative and no obvious source on lab work Most likely is due to JARRET and slow metabolism of his medications Though some of it is intentional as he is quite talkative about what he would like to talk about Creatinine slowing improving Hold nephrotoxic agents as able COVID send out negative Pulmonary Edema HFpEF Coronary Artery Disease, mild Paroxysmal atrial fibrillation Hypertension Peripheral Vascular Disease CXR stable Continue lasix as able due to hypoxia but monitor closely with JARRET Continue home meds Scrotal Swelling Continue home valtrex Maintain reina-POA Diabetes Continue home meds BS trending up, add back Levemir and continue SSI Obesity Stasis Dermatitis- bilateral lower extremities Anemia of CKD No acute needs ANA MCGUIRE MD December 07, 2021 13:40
[2021-12-07 16:00] VITALS: BP 125/72
[2021-12-07 19:09] VITALS: BP 137/57
[2021-12-07] MEDS: GABAPENTIN 100 MG (NEURONTIN) CAP PO PRN (22:04)
[2021-12-07 23:06] VITALS: BP 137/57
[2021-12-08] VITALS: BP 143/56
[2021-12-08 04:00] VITALS: BP 109/56
[2021-12-08 05:32] LABS: HEMATOCRIT 34 % (40-54); HEMOGLOBIN 9.7 g/dL (13.3-17.7); MEAN CORPUSCULAR HEMOGLOBIN 25 pg (25-34); MEAN CORPUSCULAR HGB CONC 29 g/dL (32-36); MEAN CORPUSCULAR VOLUME 88 fL (80-99); MEAN PLATELET VOLUME 12.2 fL (9.0-12.2); PLATELET COUNT 200 10^3/uL (130-400); WHITE BLOOD COUNT 8.2 10^3/uL (4.3-11.0)
[2021-12-08 05:42] LABS: POTASSIUM 4.4 MMOL/L (3.6-5.0)
[2021-12-08 05:43] LABS: CALCIUM 8.3 MG/DL (8.5-10.1)
[2021-12-08 05:48] LABS: CREATININE SERUM 1.98 MG/DL (0.60-1.30)
[2021-12-08] MEDS: FUROSEMIDE 20 MG (LASIX) TAB PO SCH (06:07)
[2021-12-08] MEDS: NovoLOG/HumaLOG RANGE A SC SCH ×2 (06:07→11:31)
[2021-12-08] MEDS: CATHETER FLUSH 10 ML SYR IVP SCH ×2 (06:07→14:04)
[2021-12-08 07:46] VITALS: BP 151/87
[2021-12-08] MEDS: amLODIPine 10 MG (NORVASC) TAB PO SCH (08:30)
[2021-12-08] MEDS: meTOprolol TARTRATE 50 MG (LOPRESSOR) TAB PO SCH (08:30)
[2021-12-08] MEDS: VALACYCLOVIR 500 MG TAB (VALTREX) PO SCH (08:30)
[2021-12-08] MEDS: APIXABAN 5 MG (ELIQUIS) TABLET PO SCH (08:30)
[2021-12-08] MEDS: GABAPENTIN 100 MG (NEURONTIN) CAP PO PRN (08:30)
[2021-12-08] MEDS: ASPIRIN 81 MG CHEW (CHILDREN'S ASA) PO SCH (08:30)
[2021-12-08 10:37] VITALS: BP 132/74
[2021-12-08 11:07] VITALS: BP 132/74
--- NOTE | 2021-12-08 11:10 | Discharge Inst-Simple/Standard ---
Discharge Inst-Standard Patient Instructions/Follow Up Plan of Care/Instructions/FU: Please continue to take your medications as written. Please follow up with your primary care doctor to follow up this hospital stay. Activity as Tolerated: Yes Discharge Diet: Cardiac Diet Return to The Hospital For: Chest pain, confusion, shortness of breath, fever, weakness, if you feel you are getting worse. ANA MCGUIRE MD Dec 08, 2021 11:09
[2021-12-08] MEDS ORDERED: GABA800T10 PO (11:11)
--- NOTE | 2021-12-08 11:20 | Discharge Summary ---
Diagnosis/Chief Complaint Date of Admission December 04, 2021 at 17:08 Date of Discharge Discharge Date: Dec 08, 2021 Admission Diagnosis AMS Primary Care Stanislav Nunez MD Discharge Summary Discharge Physical Exam Allergies: Coded Allergies: penicillin V (Unverified Allergy, Unknown, 10/01/08) erythromycin base (Unverified Adverse Reaction, Mild, VOMITING, 03/18/13) Vitals & I&Os Vital Signs Date Time Temp Pulse Resp B/P (MAP) Pulse Ox O2 Delivery O2 Flow Rate FiO2 12/08/21 11:07 36.6 54 18 132/74 (93) 99 Nasal Cannula 3.00 12/07/21 23:06 40 General Appearance: No Apparent Distress, WD/WN Cardiovascular: Regular Rate, Rhythm, No Murmur Gastrointestinal: Normal Bowel Sounds, Non Tender, Soft Neurologic/Psychiatric: Alert, Oriented x3 Hospital Course Patient was admitted to the hospital due to altered mental status and acute kidney injury. His gabapentin was held and his creatinine improved with conservative management. His mentation improved significantly from admission. I did decrease his gabapentin upon discharge and he was discharged home in stable and improved condition to follow-up with his primary care, Dr. Nunez. Labs (last 24 hrs) Laboratory Tests 12/07/21 19:15: Glucometer 332H 12/08/21 05:13: White Blood Count 8.2, Red Blood Count 3.82L, Hemoglobin 9.7L, Hematocrit 34L, Mean Corpuscular Volume 88, Mean Corpuscular Hemoglobin 25, Mean Corpuscular Hemoglobin Concent 29L, Red Cell Distribution Width 18.4H, Platelet Count 200, Mean Platelet Volume 12.2, Sodium Level 140, Potassium Level 4.4, Chloride Level 107, Carbon Dioxide Level 20L, Anion Gap 13, Blood Urea Nitrogen 40H, Creatinine 1.98H, Estimat Glomerular Filtration Rate 39, BUN/Creatinine Ratio 20, Glucose Level 287H, Calcium Level 8.3L 12/08/21 10:37: Glucometer 310H Microbiology 12/04/21 Urine Culture - Final, Complete YEAST Patient resulted labs reviewed. Pending Labs Laboratory Tests 12/08/21 05:13: White Blood Count 8.2, Red Blood Count 3.82, Hemoglobin 9.7, Hematocrit 34, Mean Corpuscular Volume 88, Mean Corpuscular Hemoglobin 25, Mean Corpuscular H emoglobin Concent 29, Red Cell Distribution Width 18.4, Platelet Count 200, Mean Platelet Volume 12.2, Sodium Level 140, Potassium Level 4.4, Chloride Level 107, Carbon Dioxide Level 20, Anion Gap 13, Blood Urea Nitrogen 40, Creatinine 1.98, Estimat Glomerular Filtration Rate 39, BUN/Creatinine Ratio 20, Glucose Level 287, Calcium Level 8.3 12/08/21 10:37: Glucometer 310 Imaging: Reviewed Imaging Report Discussion & Recommendations Discharge Planning: >30 minutes discharge planning Discharge Home Medications: Active Scripts Active Gabapentin 800 Mg Tablet 200 Mg PO TID Valtrex (Valacyclovir HCl) 500 Mg Tablet 1,000 Mg PO BID 9 Days Reported Levemir Flextouch (Insulin Detemir) 100 Unit/Ml (3 Ml) Insuln.pen 25 Unit SQ BID Humalog Kwikpen (Insulin Lispro) 200 Unit/Ml (3 Ml) Insuln.pen 20 Unit SQ AC Doxazosin Mesylate 2 Mg Tablet 2 Mg PO Nystatin 100,000 Unit/Gram Powder 1 Applic TP BID APPLY TO ABD FOLD AND GROIN Tramadol HCl 50 Mg Tablet 50 Mg PO Q8HR PRN Symbicort 160-4.5 Mcg Inhaler (Budesonide/Formoterol Fumarate) 160 Mcg-4.5 Mcg/Actuation Hfa.aer.ad 2 Puff IH BID Gabapentin 400 Mg Capsule 400 Mg PO HS TAKES ALONG WITH (800MG) CAP TO TOTAL 1200MG AT BEDTIME Flintstones Complete Chew Tab (Ped Multivit #43/Iron Fumarate) 18 Mg Iron Tab.chew 18 Mg PO DAILY Tobramycin 0.3 % Drops 2 Drops OU QID USE FOR 7 DAYS STARTING 11-27-2021 AND END DATE OF 12-04-2021 Diclofenac Sodium 1 % Gel..gram. 1 Applic TP Q4H PRN Jardiance (Empagliflozin) 25 Mg Tablet 25 Mg PO DAILY Ondansetron Odt (Ondansetron) 4 Mg Tab.rapdis 4 Mg PO Q8H PRN Tylenol (Acetaminophen) 325 Mg Tablet 650 Mg PO Q6H PRN Calcium Carbonate 500 Mg Tablet 500 Mg PO Q6H PRN Guaifenesin-Dm 100-10 mg/5 ml (Guaifenesin/Dextromethorphan) 5 Ml Liquid 10 Ml PO Q4H PRN Miralax (Polyethylene Glycol 3350) 17 Gm Powd.pack 17 Gm PO Q12H PRN Meclizine HCl 25 Mg Tablet 25 Mg PO DAILY PRN Docusate Sodium 100 Mg Capsule 100 Mg PO DAILY PRN Loperamide (Loperamide HCl) 2 Mg Tablet 2 Mg PO Q1H PRN MDD 8MG Albuterol Sulfate 2.5 Mg/0.5 Ml Vial.neb 2.5 Mg INH Q8H PRN Metoprolol Tartrate 100 Mg Tablet 100 Mg PO BID HOLD IF PULSE IS LESS THAN 50 AND IF BLOOD PRESSURE LESS THAN 100/50 Melatonin 3 Mg Tablet 3 Mg PO HS Aspirin EC (Aspirin) 81 Mg Tablet.dr 81 Mg PO DAILY Amlodipine Besylate 10 Mg Tablet 10 Mg PO DAILY HOLD FOR PULSE <50 AND BP <100/50 Flomax (Tamsulosin HCl) 0.4 Mg Cap 0.4 Mg PO DAILY Spiriva Respimat 1.25MCG/ACTUATION (Tiotropium [place]) 4 Gm Mist.inhal 2 Puff IH DAILY Furosemide 20 Mg Tablet 60 Mg PO DAILY TAKES 3 (20MG) TABLETS Duloxetine HCl 40 Mg Capsule.dr 40 Mg PO DAILY Alphagan P (Brimonidine Tartrate) 5 Ml Drops 1 Drop OU BID Rosuvastatin Calcium 40 Mg Tablet 40 Mg PO DAILY Eliquis (Apixaban) 5 Mg Tablet 5 Mg PO BID Aripiprazole 10 Mg Tablet 10 Mg PO DAILY Divalproex Sodium 250 Mg Tablet.dr 250 Mg PO TID Instructions to patient/family Please see electronic discharge instructions given to patient. ANA MCGUIRE MD Dec 08, 2021 11:20
[2021-12-08 13:50] VITALS: BP 132/74
== END 2021-12-08 14:45 ==
LOC: ER 13:47 → EDUNIT# 13:47 → ICU 17:08 → 4TH 12-05 11:55
PROVIDERS: ADMIT Family Medicine; ATTEND Family Medicine
DX: R41.82 Altered mental status, unspecified (principal); I13.0 Hypertensive heart and chronic kidney disease with heart failure and stage 1 through stage 4 chronic kidney disease, or unspecified chronic kidney disease; I50.30 Unspecified diastolic (congestive) heart failure; I48.0 Paroxysmal atrial fibrillation; I73.9 Peripheral vascular disease, unspecified; I87.2 Venous insufficiency (chronic) (peripheral); I25.10 Atherosclerotic heart disease of native coronary artery without angina pectoris; A60.00 Herpesviral infection of urogenital system, unspecified; N17.9 Acute kidney failure, unspecified; N18.30 Chronic kidney disease, stage 3 unspecified; E11.40 Type 2 diabetes mellitus with diabetic neuropathy, unspecified; D63.1 Anemia in chronic kidney disease; E11.22 Type 2 diabetes mellitus with diabetic chronic kidney disease; E66.9 Obesity, unspecified; N50.89 Other specified disorders of the male genital organs; Z79.4 Long term (current) use of insulin; Z87.891 Personal history of nicotine dependence; Z79.899 Other long term (current) drug therapy; Z68.42 Body mass index [BMI] 45.0-49.9, adult; Z20.822 Contact with and (suspected) exposure to COVID-19
CPT/HCPCS: 36600; 70450; 71045; 80048 ×4; 80053; 81000; 82805; 82947 ×5; 83880; 85025 ×2; 85027 ×3; 87088; 87635; 87804; 93005; 94660 ×4; 94760 ×2; 96372 ×5; 99291; G0378 ×2; 36415

== ENCOUNTER → 2021-12-12 | Outpatient (CLI) | payer MEDICARE, MEDICAID ==
[~2021-12-12] MED LIST changes: +CEFD300C3 PO; +DULO20CA19 PO; +FLUC150T41 PO; +GABA-486 PO; +GLUC1VIA15 IJ; +L.AC1CAP6 PO
[2021-12-12 14:46] LABS: CLARITY,URINE TURBID; COLOR,URINE YELLOW; PROTEIN,URINE 3+ (NEGATIVE)
[2021-12-12 14:47] LABS: BACTERIA,URINE LARGE /HPF; BILIRUBIN,URINE NEGATIVE (NEGATIVE); GLUCOSE, URINE (UA) 4+ (NEGATIVE); KETONES,URINE TRACE (NEGATIVE); LEUKOCYTE ESTERASE ,URINE 3+ (NEGATIVE); NITRITE,URINE POSITIVE (NEGATIVE); WBC,URINE TNTC /HPF
[2021-12-12 14:48] LABS: YEAST,URINE LARGE /HPF
== END ==
PROVIDERS: ATTEND Internal Medicine
DX: R82.998 Other abnormal findings in urine (principal)
CPT/HCPCS: 81000; 87077; 87088; 87186

== ENCOUNTER 2021-12-14 08:48 | Inpatient (IN) | payer MEDICARE, MEDICAID ==
[~2021-12-14] VITALS: Ht 192 cm; Wt 154.9 kg
[~2021-12-14 08:48] MED LIST changes: -CEFD300C3 PO; -DULO20CA19 PO; -FLUC150T41 PO; -GABA-486 PO; -GLUC1VIA15 IJ; -L.AC1CAP6 PO
[2021-12-14] MEDS ORDERED: RT-IPRATROPIUM (ATROVENT) 0.5MG/2.5ML AMP IH ONE (09:01)
[2021-12-14] MEDS ORDERED: RT-ALBUTEROL SULF 2.5 MG/3 ML PRE-MIX VIAL ONE (09:01)
[2021-12-14 09:11] LABS: ABG BASE EXCESS -3.5 MMOL/L (-2.5-2.5); ABG OXYGEN SATURATION 98 % (94-100); ABG PCO2 44 MMHG (35-45); ABG PO2 116 MMHG (79-93); ABG TCO2 22.5 MMOL/L (21.0-31.0)
[2021-12-14 09:12] LABS: ABG PH 7.32 (7.37-7.43); ALLENS TEST POSITIVE; INSPIRED O2 6 L; VENTILATOR NO
[2021-12-14 09:13] LABS: PATIENT TEMP 101.8
[2021-12-14] MEDS ORDERED: RT-ALBUTEROL SULF 2.5 MG/3 ML PRE-MIX VIAL INH STA (09:26)
[2021-12-14] MEDS ORDERED: methylPREDNISolone 125 MG (Solu-MEDROL) VIAL IV STA (09:26)
[2021-12-14] MEDS ORDERED: VANCOMYCIN INJECTION 2,000 MG in NS IV 500 ML 500 ML IV ONE (09:26)
[2021-12-14] MEDS ORDERED: CEFEPIME INJECTION 1,000 MG in NS (IVPB) 50 ML IV ONE (09:30)
[2021-12-14] MEDS ORDERED: RT-ALBUTEROL/IPRATROPIUM 3 ML (DUONEB) VIAL INH ONE (09:30)
--- NOTE | 2021-12-14 09:34 | ED Respiratory ---
General Chief Complaint: Respiratory Problems Stated Complaint: LOW 02 Nursing Triage Note: pt to rm 3 by cr co ems with cc of resp distress/low o2 and high heart rate. pt dx with uti yesterday, catheter shows creamy urine, breathing tx in progress on arrival, o2 at 100% after being 85% at the hospital at [facility]. Source: patient Exam Limitations: no limitations History of Present Illness Date Seen by Provider: Dec 14, 2021 Time Seen by Provider: 09:00 Initial Comments Patient to the ER by EMS [facility] with chief complaint of shortness of breath, oxygen saturations 82% when EMS arrived. He does not wear oxygen at baseline. He does have COPD. They gave him a DuoNeb because he heard expiratory wheezes. He also has a history of diabetes and his blood sugar was 141 on arrival. On DuoNeb on arrival his oxygen saturation was 100%. Patient does not answer very many questions and is rather obtunded. He denies nausea or pain. He did have a fever but has not received any antipyretics yet today. He is being treated outpatient for urinary tract infection with Rocephin and has creamy, milky orange-white urine in a Ott catheter bag. Allergies and Home Medications Allergies Coded Allergies: penicillin V (Unverified Allergy, Unknown, 10/01/08) erythromycin base (Unverified Adverse Reaction, Mild, VOMITING, 03/18/13) Patient Home Medication List Home Medication List Reviewed: Yes Acetaminophen (Tylenol) 325 Mg Tablet, 650 MG PO Q6H PRN for PAIN-MILD (1-4), (Reported) Entered as Reported by: KALEN ALBERTO on 09/17/211410 Albuterol Sulfate (Albuterol Sulfate) 2.5 Mg/0.5 Ml Vial.neb, 2.5 MG INH Q8H PRN for SHORTNESS OF BREATH, (Reported) Entered as Reported by: KALEN ALBERTO on 09/17/21 141 Amlodipine Besylate (Amlodipine Besylate) 10 Mg Tablet, 10 MG PO DAILY, (Reported) Entered as Reported by: KALEN ALBERTO on 09/17/21 141 Apixaban (Eliquis) 5 Mg Tablet, 5 MG PO BID, (Reported) Entered as Reported by: JIM GRADY on 12/03/15 1005 Aripiprazole (Aripiprazole) 10 Mg Tablet, 10 MG PO DAILY, (Reported) Entered as Reported by: JIM GRADY on 12/03/15 1005 Aspirin (Aspirin EC) 81 Mg Tablet.dr, 81 MG PO DAILY, (Reported) Entered as Reported by: KALEN ALBERTO on 09/17/21 141 Brimonidine Tartrate (Alphagan P) 5 Ml Drops, 1 DROP OU BID, (Reported) Entered as Reported by: KERA FELIPE on 02/22/21 141 Budesonide/Formoterol Fumarate (Symbicort 160-4.5 Mcg Inhaler) 160 Mcg-4.5 Mcg/Actuation Hfa.aer.ad, 2 PUFF IH BID, (Reported) Entered as Reported by: RASTA SANCHES on 11/22/21 1202 Calcium Carbonate (Calcium Carbonate) 500 Mg Tablet, 500 MG PO Q6H PRN for HEARTBURN, (Reported) Entered as Reported by: KALEN ALBERTO on 09/17/21 141 Diclofenac Sodium (Diclofenac Sodium) 1 % Gel..gram., 1 APPLIC TP Q4H PRN for PAIN-BREAKTHROUGH, (Reported) Entered as Reported by: OSMANY QUEZADA on 11/20/21 1600 Divalproex Sodium (Divalproex Sodium) 250 Mg Tablet., 250 MG PO TID, (Reported) Entered as Reported by: JIM GRADY on 12/03/15 1005 Docusate Sodium (Docusate Sodium) 100 Mg Capsule, 100 MG PO DAILY PRN for CONSTIPATION-1ST LINE, (Reported) Entered as Reported by: KALEN ALBERTO on 09/17/21 141 Doxazosin Mesylate (Doxazosin Mesylate) 2 Mg Tablet, 2 MG PO, (Reported) Entered as Reported by: SHADY CHONG on 12/01/21 1051 Duloxetine HCl (Duloxetine HCl) 40 Mg Capsule., 40 MG PO DAILY, (Reported) Entered as Reported by: KERA FELIPE on 02/22/21 141 Empagliflozin (Jardiance) 25 Mg Tablet, 25 MG PO DAILY, (Reported) Entered as Reported by: OSMANY QUEZADA on 11/20/21 1544 Furosemide (Furosemide) 20 Mg Tablet, 60 MG PO DAILY, (Reported) Entered as Reported by: KERA FELIPE on 02/22/21 1415 Gabapentin (Gabapentin) 400 Mg Capsule, 400 MG PO HS, (Reported) Entered as Reported by: RASTA SANCHES on 11/22/21 1156 Gabapentin (Gabapentin) 800 Mg Tablet, 200 MG PO TID Prescribed by: ANA MCGUIRE on 12/08/21 1111 Guaifenesin/Dextromethorphan (Guaifenesin-Dm 100-10 mg/5 ml) 5 Ml Liquid, 10 ML PO Q4H PRN for COUGH, (Reported) Entered as Reported by: KALEN ALBERTO on 09/17/21 1411 Insulin Detemir (Levemir Flextouch) 100 Unit/Ml (3 Ml) Insuln.pen, 25 UNIT SQ BID, (Reported) Entered as Reported by: SHADY CHONG on 12/01/21 105 Insulin Lispro (Humalog Kwikpen) 200 Unit/Ml (3 Ml) Insuln.pen, 20 UNIT SQ AC, (Reported) Entered as Reported by: SHADY CHONG on 12/01/21 1051 Loperamide HCl (Loperamide) 2 Mg Tablet, 2 MG PO Q1H PRN for DIARRHEA, (Reported) Entered as Reported by: KALEN ALBERTO on 09/17/21 141 Meclizine HCl (Meclizine HCl) 25 Mg Tablet, 25 MG PO DAILY PRN for VERTIGO, (Reported) Entered as Reported by: KALEN ALBERTO on 09/17/21 141 Melatonin (Melatonin) 3 Mg Tablet, 3 MG PO HS, (Reported) Entered as Reported by: KALEN ALBERTO on 09/17/21 141 Metoprolol Tartrate (Metoprolol Tartrate) 100 Mg Tablet, 100 MG PO BID, (Reported) Entered as Reported by: KALEN ALBERTO on 09/17/21 141 Nystatin (Nystatin) 100,000 Unit/Gram Powder, 1 APPLIC TP BID, (Reported) Entered as Reported by: RENETTA GAUTHIER on 11/30/21 165 Ondansetron (Ondansetron Odt) 4 Mg Tab.rapdis, 4 MG PO Q8H PRN for NAUSEA/VOMITING-1ST LINE, (Reported) Entered as Reported by: KALEN ALBERTO on 09/17/21 141 Ped Multivit #43/Iron Fumarate (Flintstones Complete Chew Tab) 18 Mg Iron Tab.chew, 18 MG PO DAILY, (Reported) Entered as Reported by: RASTA SANCHES on 11/22/21 1155 Polyethylene Glycol 3350 (Miralax) 17 Gm Powd.pack, 17 GM PO Q12H PRN for CONSTIPATION-2ND LINE, (Reported) Entered as Reported by: KALEN ALBERTO on 09/17/21 1411 Rosuvastatin Calcium (Rosuvastatin Calcium) 40 Mg Tablet, 40 MG PO DAILY, (Reported) Entered as Reported by: KERA FELIPE on 02/22/21 1415 Tamsulosin HCl (Flomax) 0.4 Mg Cap, 0.4 MG PO DAILY, (Reported) Entered as Reported by: KERA FELIPE on 02/22/21 1415 Tiotropium [place] (Spiriva Respimat 1.25MCG/ACTUATION) 4 Gm Mist.inhal, 2 PUFF IH DAILY, (Reported) Entered as Reported by: KERA FELIPE on 02/22/21 1415 Tobramycin (Tobramycin) 0.3 % Drops, 2 DROPS OU QID, (Reported) Entered as Reported by: OSMANY QUEZADA on 11/20/21 1609 Tramadol HCl (Tramadol HCl) 50 Mg Tablet, 50 MG PO Q8HR PRN for PAIN-MODERATE (5-7), (Reported) Entered as Reported by: RENETTA GAUTHIER on 11/30/21 1657 Valacyclovir HCl (Valtrex) 500 Mg Tablet, 1,000 MG PO BID Prescribed by: KIA BENITEZ on 12/03/21 1217 Review of Systems Review of Systems Constitutional: No chills, No diaphoresis; fever EENTM: No ear discharge, No ear pain Respiratory: cough, short of breath, wheezing Cardiovascular: No chest pain; edema (baseline); No palpitations Gastrointestinal: No abdominal pain, No nausea Genitourinary: No discharge, No dysuria Musculoskeletal: No back pain, No joint pain Skin: No pruritus, No rash Psychiatric/Neurological: Denies Headache, Denies Numbness All Other Systems Reviewed Negative Unless Noted: Yes Past Dejvutj-Vpxxvs-Hitpid Hx Patient Social History Tobacco Use?: No Use of E-Cig and/or Vaping dev: No Substance use?: No Immunizations Up To Date First/Initial COVID19 Vaccinat: 07/16/20 Second COVID19 Vaccination Bryce: 08/05/20 Third COVID19 Vaccination Date: 10/27/21 Seasonal Allergies Seasonal Allergies: No Past Medical History Surgery/Hospitalization HX: DM, HTN, HYPOXIA, BIPOLAR, NEUROPATHY, ANXIETY, CHF, AFIB, CKD, COVID, VERTIGO, GERD Surgeries: Yes Cardiac, Dialysis, Orthopedic, Renal, Vascular Surgery Respiratory: Yes (COMMUNITY ACQUIRED PNEUMONIA) Asthma, Pneumonia Currently Using CPAP: No Currently Using BIPAP: No Cardiac: Yes (PAD) Atrial Fibrillation, Cardiomyopathy, Coronary Artery Disease, High Cholesterol, Hypertension, Peripheral Vascular, Valvular Heart Disease Neurological: Yes (BRAIN INJURY CAUSES EMOTIONS TO CHANGE . LEFT SIDE WEAKNESS) Neuropathy Reproductive Disorders: No Sexually Transmitted Disease: No HIV/AIDS: No Kidney Stones, Renal Failure Gastrointestinal: Yes Colitis, Gastroesophageal Reflux, Diverticulosis, Polyps, Hiatal Hernia Musculoskeletal: Yes (WEAKNESS IN LEGS FROM STROKE ) Arthritis, Fibromyalgia, Rheumatoid Arthritis, Chronic Back Pain Endocrine: Yes Diabetes, Insulin dep Glaucoma Loss of Vision: Bilateral Hearing Impairment: Denies Cancer: No Psychosocial: Yes Sleep Difficulties, Bipolar, Depression Integumentary: No Blood Disorders: Yes (ANEMIA, BLOOD CLOTS ) Family Medical History Cardiovascular disease 19 MOTHER G8 BROTHER Colon cancer 19 MOTHER Completed stroke 19 FATHER Dementia 19 FATHER Diabetes mellitus 19 MOTHER FHx: macular degeneration 19 FATHER Myocardial infarction 19 MOTHER Heart Disease, Diabetes, Hypertension Physical Exam Vital Signs - First Documented 12/14/21 12/14/21 09:00 09:05 Temp 38.7 Pulse 120 Resp 24 B/P (MAP) 137/79 (98) Pulse Ox 100 O2 Delivery Non Rebreather O2 Flow Rate 6.00 Capillary Refill : Less Than 3 Seconds Height: 6'2" Weight: 250lbs. 0.0oz. 113.853978eg; 42.00 BMI Method:Estimated General Appearance: WD/WN, no apparent distress Eyes: Bilateral Eye Normal Inspection, Bilateral Eye PERRL, Bilateral Eye EOMI HEENT: PERRL/EOMI, normal ENT inspection, pharynx normal Neck: full range of motion, supple, normal inspection Respiratory: no accessory muscle use, respiratory distress, decreased breath sounds, wheezing Cardiovascular: normal peripheral pulses, regular rate, rhythm, other (Bilateral pedal edema at his baseline) Gastrointestinal: normal bowel sounds, non tender, soft Extremities: non-tender, normal capillary refill Neurologic/Psychiatric: alert, other (Obtunded, GCS 14) Skin: normal color, warm/dry Focused Exam Sepsis Stage: Severe Sepsis Possible Source: Genitouriary Lactate Level 12/14/21 09:28: Lactic Acid Level 0.86 Time of Focused Exam: 10:30 Respiratory: No Accessory Muscle Use, Respiratory Distress (mild 100% on RA non labored), Wheezing Cardiovascular: Regular Rate, Rhythm (87), Normal Peripheral Pulses Capillary Refill: Less Than 3 Seconds Peripheral Pulses: 2+ Dorsalis Pedis (R), 2+ Left Dors-Pedis (L) Skin: normal color, warm/dry Lactic Acid Level Laboratory Tests Test 12/14/21 09:28 Lactic Acid Level 0.86 MMOL/L (0.50-2.00) Within 3hrs of presentation: Admin fluids, Admin 30ml/kg IBW due to BMI>30, Admin ABX, Blood cultures prior to ABX's, Focus exam, Lactate level Progress/Results/Core Measures Suspected Sepsis SIRS Temperature: Pulse: 120 Respiratory Rate: 24 Laboratory Tests 12/14/21 09:13: White Blood Count 13.6H Blood Pressure 137 /79 Mean: 98 12/14/21 09:28: Lactic Acid Level 0.86 Laboratory Tests 12/14/21 09:13: Creatinine 3.50#H, INR Comment 1.5H, Platelet Count 334, Total Bilirubin 0.4 Results/Orders Lab Results Laboratory Tests Test 12/14/21 08:55 12/14/21 09:00 12/14/21 09:13 12/14/21 09:28 Range/Units Blood Gas Puncture Site RIGHT RADIAL Blood Gas Patient Temperature 101.8 Arterial Blood pH 7.32 *L 7.37-7.43 Arterial Blood Partial Pressure CO2 44 35-45 MMHG Arterial Blood Partial Pressure O2 116 H 79-93 MMHG Arterial Blood HCO3 21 L 23-27 MMOL/L Arterial Blood Total CO2 22.5 21.0-31.0 MMOL/L Arterial Blood Oxygen Saturation 98 94-100 % Arterial Blood Base Excess -3.5 L -2.5-2.5 MMOL/L Martin Test POSITIVE Blood Gas Ventilator Setting NO Blood Gas Inspired Oxygen 6 L Glucometer 141 H 70-110 MG/DL White Blood Count 13.6 H 4.3-11.0 10^3/uL Red Blood Count 3.87 L 4.30-5.52 10^6/uL Hemoglobin 10.0 L 13.3-17.7 g/dL Hematocrit 34 L 40-54 % Mean Corpuscular Volume 87 80-99 fL Mean Corpuscular Hemoglobin 26 25-34 pg Mean Corpuscular Hemoglobin Concent 30 L 32-36 g/dL Red Cell Distribution Width 19.9 H 10.0-14.5 % Platelet Count 334 130-400 10^3/uL Mean Platelet Volume 11.9 9.0-12.2 fL Immature Granulocyte % (Auto) 1 % Neutrophils (%) (Auto) 77 H 42-75 % Lymphocytes (%) (Auto) 8 L 12-44 % Monocytes (%) (Auto) 13 H 0-12 % Eosinophils (%) (Auto) 1 0-10 % Basophils (%) (Auto) 0 0-10 % Neutrophils # (Auto) 10.5 H 1.8-7.8 10^3/uL Lymphocytes # (Auto) 1.2 1.0-4.0 10^3/uL Monocytes # (Auto) 1.8 H 0.0-1.0 10^3/uL Eosinophils # (Auto) 0.1 0.0-0.3 10^3/uL Basophils # (Auto) 0.1 0.0-0.1 10^3/uL Immature Granulocyte # (Auto) 0.1 0.0-0.1 10^3/uL Prothrombin Time 18.3 H 12.2-14.7 SEC INR Comment 1.5 H 0.8-1.4 Activated Partial Thromboplast Time 50 H 24-35 SEC D-Dimer 3.50 H 0.00-0.49 UG/ML Sodium Level 147 H 135-145 MMOL/L Potassium Level 4.2 3.6-5.0 MMOL/L Chloride Level 113 H 98-107 MMOL/L Carbon Dioxide Level 21 21-32 MMOL/L Anion Gap 13 5-14 MMOL/L Blood Urea Nitrogen 49 H 7-18 MG/DL Creatinine 3.50 #H 0.60-1.30 MG/DL Estimat Glomerular Filtration Rate 20 BUN/Creatinine Ratio 14 Glucose Level 146 H 70-105 MG/DL Calcium Level 8.6 8.5-10.1 MG/DL Corrected Calcium 9.6 8.5-10.1 MG/DL Total Bilirubin 0.4 0.1-1.0 MG/DL Aspartate Amino Transf (AST/SGOT) 33 5-34 U/L Alanine Aminotransferase (ALT/SGPT) 26 0-55 U/L Alkaline Phosphatase 99 40-136 U/L Troponin I 0.070 H <0.028 NG/ML C-Reactive Protein High Sensitivity 44.10 H 0.00-0.50 MG/DL B-Type Natriuretic Peptide 310.5 H <100.0 PG/ML Total Protein 8.0 6.4-8.2 GM/DL Albumin 2.8 L 3.2-4.5 GM/DL Procalcitonin 8.27 H <0.10 NG/ML Lactic Acid Level 0.86 0.50-2.00 MMOL/L Influenza Type A (RT-PCR) Not Detected Not Detecte Influenza Type B (RT-PCR) Not Detected Not Detecte SARS-CoV-2 RNA (RT-PCR) Not Detected Not Detecte Test 12/14/21 10:40 Range/Units Urine Color YELLOW Urine Clarity CLOUDY Urine pH 6.0 5-9 Urine Specific [place] 1.010 L 1.016-1.022 Urine Protein 3+ H NEGATIVE Urine Glucose (UA) 3+ H NEGATIVE Urine Ketones NEGATIVE NEGATIVE Urine Nitrite NEGATIVE NEGATIVE Urine Bilirubin NEGATIVE NEGATIVE Urine Urobilinogen 0.2 < = 1.0 MG/DL Urine Leukocyte Esterase 2+ H NEGATIVE Urine RBC (Auto) 3+ H NEGATIVE Urine RBC 50-100 H /HPF Urine WBC TNTC H /HPF Urine Squamous Epithelial Cells NONE /HPF Urine Crystals NONE /LPF Urine Amorphous Sediment FEW PEREZ PHOSPHATE H /LPF Urine Bacteria FEW H /HPF Urine Casts NONE /LPF Urine Mucus NEGATIVE /LPF Urine Culture Indicated YES My Orders Orders - GARRETT HASSAN Ipratropium 0.02% Neb Solution (Atrovent (12/14/21 09:01) Albuterol Pre-Mix Nebs (Rt) (Proventil (12/14/21 09:01) Arterial Blood Gas (12/14/21 09:07) Covid 19 Inhouse Test (12/14/21 09:26) Influenza A And B By Pcr (12/14/21 09:26) Cbc With Automated Diff (12/14/21 09:26) Comprehensive Metabolic Panel (12/14/21 09:26) Blood Culture (12/14/21:) Sputum Culture (12/14/21:) Urinalysis (12/14/21:) Urine Culture (12/14/21) Protime With Inr (12/14/21:) Partial Thromboplastin Time (12/14/21:) Chest 1 View, Ap/Pa Only (12/14/21:) Ed Iv/Invasive Line Start (12/14/21) Ed Iv/Invasive Line Start (12/14/21:) Ekg Tracing (12/14/21) Troponin I Nila (12/14/21) Vital Signs Adult Sepsis Patie Q15M (12/14/21) O2 (12/14/21:) Remove Rings In Anticipation O (12/14/21:) Lactic Acid Analyzer (12/14/21:) Cefepime Injection (Maxipime Injection) (12/14/21:30) Vancomycin Injection (Vancomycin Injecti (12/14/21:) Bnp [place] (12/14/21:) Hs C Reactive Protein (12/14/21:) Procalcitonin (Pct) (12/14/21:) Fibrin Degradation Products (12/14/21:) Albuterol Pre-Mix Nebs (Rt) (Proventil (12/14/21:26) Albuterol/Ipra Inhalation Soln (Duoneb I (12/14/21 09:30) Methylprednisolone Sod Succ (Solu-Medrol (12/14/21:26) Svn Small Volume Nebulizer (12/14/21:) Acetaminophen Suppository (Tylenol Suppo (12/14/21 09:45) Lidocaine 2% (Urojet) (Xylocaine Urojet) (12/14/21 10:30) Lidocaine 2% (Urojet) (Xylocaine Urojet) (12/14/21 10:26) Ed Admission (Communication) (12/14/21 11:30) Medications Given in ED Current Medications Medications Dose Ordered Sig/Shelbi Route Start Time Stop Time Status Last Admin Dose Admin Acetaminophen 650 mg ONCE ONCE NM 12/14/21 09:45 6/7/22 09:46 DC 12/14/21 09:48 650 MG Albuterol Sulfate 2.5 mg STK-MED ONCE .ROUTE 12/14/21 09:01 12/14/21 09:02 DC 12/14/21 09:05 12.5 MG Ipratropium [place] 0.5 mg STK-MED ONCE IH 12/14/21 09:01 12/14/21 09:02 DC 12/14/21 09:04 0.5 MG Lidocaine HCl 10 ml ONCE ONCE TOP 12/14/21 10:30 12/14/21 10:31 DC 12/14/21 10:30 10 ML Vancomycin HCl 2000 mg/Sodium Chloride 500 ml @ 260 mls/hr 0926 ONCE IV 12/14/21 09:26 12/14/21 11:21 DC 12/14/21 09:49 260 MLS/HR Vital Signs/I&O 12/14/21 12/14/21 12/14/21 12/14/21 09:00 09:05 09:06 09:48 Temp 38.7 38.7 Pulse 120 Resp 24 B/P (MAP) 137/79 (98) Pulse Ox 100 100 O2 Delivery Non Rebreather Non Rebreather O2 Flow Rate 6.00 Capillary Refill : Less Than 3 Seconds Blood Pressure Mean: 98 Progress Note #1: Time: 10:35 Progress Note Respiratory failure, sinus tachycardia, sepsis work-up. Start with a liter of fluids. He appears to be a little dry and his creatinine is elevated at 3 he normally runs 1-2. His urine is milky yellow/orange and he certainly has a UTI so we will change out his Ott catheter and bag. We gave him an hour-long breathing treatment. He is maintaining normal oxygenation on the DuoNeb. ABG shows metabolic acidosis but his lactate is normal. Troponin is marginally elevated likely due to the creased work of breathing, type II. Will trend troponin. Broad-spectrum antibiotics were selected as well as 125 mg Solu- Medrol for his wheezing. Progress Note #2: Time: 11:25 Progress Note Despite a close lactate he has severe sepsis based on 2 organ systems, delirium and JARRET. Cefepime and vancomycin, changed out Ott catheter and will place him on the floor. ECG Initial ECG Impression Date: Dec 14, 2021 Initial ECG Impression Time: 09:44 Initial ECG Rate: 102 Initial ECG Rhythm: S.Tach Initial ECG Intervals: Normal Initial ECG Impression: Normal Comment Sinus tachycardia without clinically relevant ST elevation or depression. Diagnostic Imaging Diagonstic Imaging: Xray Plain Films/CT/US/NM/MRI: chest Comments [facility], [place] NAME: SERG KEBEDE [facility] REC#: [id number] PT STATUS: REG ER : 1965 PHYSICIAN: GARRETT HASSAN MD ADMIT DATE: 12/14/21/ER Draft Date of Exam:12/14/21 CHEST 1 VIEW, AP/PA ONLY INDICATION: Dyspnea. TECHNIQUE: AP view of the chest is obtained with comparison made to study of 12/04/2021. FINDINGS: There is cardiomegaly and pulmonary venous congestion. There may be slight worsening of presumed bilateral pulmonary edema. No pneumothorax is identified and there is no significant pleural effusion. IMPRESSION: Probable mild worsening of pulmonary edema secondary to congestive heart failure. Dictated on workstation # [id number] Dict: 12/14/21 1040 Trans: 12/14/21 1045 [id number] Interpreted by: AMOL OSPINA MD Electronically signed by: Reviewed: Reviewed by Me Departure Communication (Admissions) Time/Spoke to Admitting Phy: 11:[address] Jeter who agrees to admit patient on broad-spectrum antibiotics. We will do queued orders Impression Primary Impression: UTI (urinary tract infection) Qualified Codes: N30.00 - Acute cystitis without hematuria Additional Impressions: Delirium COPD exacerbation Severe sepsis Disposition: ADMITTED INPATIENT Condition: Stable Admissions Decision to Admit Reason: Admit from ER (General) Decision to Admit/Date: Dec 14, 2021 Time/Decision to Admit Time: 10:40 Departure-Patient Inst. Referrals: ELIZABETH QUESADA MD (PCP/Family) Primary Care Physician GARRETT HASSAN Dec 14, 2021 09:33
[2021-12-14 09:37] LABS: BASOPHILS # (AUTO) 0.1 10^3/uL (0.0-0.1); BASOPHILS % (AUTO) 0 % (0-10); EOSINOPHILS # (AUTO) 0.1 10^3/uL (0.0-0.3); EOSINOPHILS % (AUTO) 1 % (0-10); HEMATOCRIT 34 % (40-54); LYMPHOCYTES # (AUTO) 1.2 10^3/uL (1.0-4.0); LYMPHOCYTES % (AUTO) 8 % (12-44); MEAN CORPUSCULAR HEMOGLOBIN 26 pg (25-34); MEAN CORPUSCULAR HGB CONC 30 g/dL (32-36); MEAN CORPUSCULAR VOLUME 87 fL (80-99); MEAN PLATELET VOLUME 11.9 fL (9.0-12.2); MONOCYTES # (AUTO) 1.8 10^3/uL (0.0-1.0); MONOCYTES % (AUTO) 13 % (0-12); NEUTROPHILS # (AUTO) 10.5 10^3/uL (1.8-7.8); NEUTROPHILS % (AUTO) 77 % (42-75); PLATELET COUNT 334 10^3/uL (130-400); WHITE BLOOD COUNT 13.6 10^3/uL (4.3-11.0)
[2021-12-14 09:43] LABS: ALBUMIN 2.8 GM/DL (3.2-4.5); POTASSIUM 4.2 MMOL/L (3.6-5.0)
[2021-12-14 09:44] LABS: CALCIUM 8.6 MG/DL (8.5-10.1)
[2021-12-14 09:45] LABS: FIBRIN DEGRADATION PRODUCTS 3.5 UG/ML (0.00-0.49); INR 1.5 (0.8-1.4); PROTHROMBIN TIME PATIENT 18.3 SEC (12.2-14.7)
[2021-12-14] MEDS ORDERED: ACETAMINOPHEN 650 MG SUPP (TYLENOL) PR ONE (09:45)
[2021-12-14 09:47] LABS: BILIRUBIN,TOTAL 0.4 MG/DL (0.1-1.0)
[2021-12-14 09:49] LABS: CREATININE SERUM 3.5 MG/DL (0.60-1.30)
[2021-12-14] MEDS ORDERED: LIDOCAINE UROJET 2% GEL 10 ML PKG ONE (10:26)
[2021-12-14] MEDS ORDERED: LIDOCAINE UROJET 2% GEL 10 ML PKG TOP ONE (10:30)
--- NOTE | 2021-12-14 10:45 | Diagnostic Imaging Report ---
INDICATION: Dyspnea. TECHNIQUE: AP view of the chest is obtained with comparison made to study of 12/04/2021. FINDINGS: There is cardiomegaly and pulmonary venous congestion. There may be slight worsening of presumed bilateral pulmonary edema. No pneumothorax is identified and there is no significant pleural effusion. IMPRESSION: Probable mild worsening of pulmonary edema secondary to congestive heart failure. Dictated by: Dictated on workstation # [id number]
[2021-12-14 10:56] LABS: BILIRUBIN,URINE NEGATIVE (NEGATIVE); CLARITY,URINE CLOUDY; COLOR,URINE YELLOW; GLUCOSE, URINE (UA) 3+ (NEGATIVE); KETONES,URINE NEGATIVE (NEGATIVE); LEUKOCYTE ESTERASE ,URINE 2+ (NEGATIVE); NITRITE,URINE NEGATIVE (NEGATIVE); PROTEIN,URINE 3+ (NEGATIVE)
[2021-12-14 11:23] LABS: AMORPHOUS SEDIMENT,UR FEW AMOR PHOSPHATE /LPF; BACTERIA,URINE FEW /HPF; RBC,URINE 50-100 /HPF; WBC,URINE TNTC /HPF
[2021-12-14] MEDS ORDERED: polyethylene glycoL POWDER 17 GM (MIRALAX) PACK PO PRN (12:00)
[2021-12-14] MEDS ORDERED: ENOXAPARIN 40 MG/0.4 ML (LOVENOX) SYR SC SCH (12:00)
[2021-12-14] MEDS ORDERED: ONDANSETRON 4 MG/2 ML (SDV) Z0FRAN IV PRN (12:00)
[2021-12-14] MEDS ORDERED: diphenhydrAMINE 25 MG TAB (BENADRYL) PO PRN (12:00)
[2021-12-14] MEDS ORDERED: VANCOMYCIN INJECTION 0.1 MG in NS (IVPB) 250 ML IV SCH (12:00)
[2021-12-14] MEDS ORDERED: ONDANSETRON 4 MG (ZOFRAN) ORAL DISSOLVE TAB PO PRN (12:00)
[2021-12-14] MEDS ORDERED: ANTACID SUSP 30 ML UDC (MYLANTA) PO PRN (12:00)
[2021-12-14] MEDS ORDERED: ACETAMINOPHEN 325 MG TABLET PO PRN (12:00)
[2021-12-14] MEDS ORDERED: MELATONIN 3 MG TABLET PO PRN (12:00)
[2021-12-14 12:28] VITALS: BP 141/80
[2021-12-14] MEDS: CEFEPIME INJECTION 1,000 MG in NS (IVPB) 50 ML IV SCH ×2 (13:05→20:00)
[2021-12-14 15:23] VITALS: BP 127/73
[2021-12-14] MEDS: NS IV 1000 ML 1,000 ML IV SCH (18:47)
--- NOTE | 2021-12-14 19:00 | History & Physical-Hospitalist ---
History of Present Illness HPI/Chief Complaint Elie Josue is a 56 year old male with PMH HTN, HLD, CKD, CAD, AFib, bipolar disorder, who presented from [facility] with hypoxia. He is a poor historian which has been the case on previous admissions as well. He awakens and answers questions intermittently but is essentially uncooperative. He denies pain. He dneies shortness of breath. In the ER he was found to be septic with a urinary tract infection. Source: patient, RN/MD Exam Limitations: clinical condition Date Seen 12/14/21 Time Seen by a Provider: 18:25 Attending Physician Stanislav Nunez MD PCP Admitting Physician: Gualberto Rojas MD Attending Physician: Gualberto Rojas MD Referring Physician Date of Admission Dec 14, 2021 at 11:31 Home Medications & Allergies Home Medications Reviewed patient Home Medication Reconciliation performed by pharmacy medication reconciliations electromechanical technician and/or nursing. Patients Allergies have been reviewed. Allergies Allergies Coded Allergies penicillin V (Unverified Allergy, Unknown, 10/01/08) erythromycin base (Unverified Adverse Reaction, Mild, VOMITING, 03/18/13) Past Jbrlmwn-Ukjiva-Tgqate Hx Patient Social History Tobacco Use?: Yes Tobacco type used: Cigarettes Smoking Status: Current Everyday Smoker Use of E-Cig and/or Vaping dev: No Substance use?: No Alcohol Use?: Yes Pt feels they are or have been: No Immunizations Up To Date First/Initial COVID19 Vaccinat: 07/16/20 Second COVID19 Vaccination Bryce: 08/05/20 Tetanus Booster (TDap): Unknown Hepatitis A: No Hepatitis B: No Date of Pneumonia Vaccine: Mar 20, 2013 Seasonal Allergies Seasonal Allergies: No Current Status Advance Directives: No Communicates: Verbally Primary Language: Grenadian Preferred Spoken Language: Grenadian Is interpretation needed?: No Implanted or Applied Medical D: None Past Medical History Surgeries: Cardiac, Dialysis, Orthopedic, Renal, Vascular Surgery Asthma, Pneumonia Currently Using CPAP: No Currently Using BIPAP: No Atrial Fibrillation, Cardiomyopathy, Coronary Artery Disease, High Cholesterol, Hypertension, Peripheral Vascular, Valvular Heart Disease Neuropathy Sexually Transmitted Disease: No HIV/AIDS: No Kidney Stones, Renal Failure Colitis, Gastroesophageal Reflux, Diverticulosis, Polyps, Hiatal Hernia Arthritis, Fibromyalgia, Rheumatoid Arthritis, Chronic Back Pain Diabetes, Insulin dep Glaucoma Loss of Vision: Bilateral Hearing Impairment: Denies Sleep Difficulties, Bipolar, Depression Blood Disorders: Yes (ANEMIA, BLOOD CLOTS ) Past Medical History 1. Diabetes Mellitus 2. Hypertension 3. Seizure Disorder- history of grand mal per pt. report (no records of neurology evaluation) 4. Bi-polar Disorder 5. Depression 6. Anxiety 7. Peripheral Neuropathy 8. History of Acute Renal Failure requiring hemodialysis 2003. 9. History of superficial RUE venous thrombus due to central line placement 10. History of chronic joint pain. 11. Chronic Peripheral Edema 12. Tobaccoism 13. 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 14. Diastolic dysfunction due to uncontrolled hypertension 15. Mild coronary artery disease per cath 16. Hyperlipidemia 17. Non-compliance with follow up and medication use 18. Hx ischemic Right Frontoparietal Infarct in the Right MCA distribution 06/2015 19. Hx of second right MCA stroke in 11/2015 20. Paroxysmal atrial fibrillation Family Medical History Cardiovascular disease 19 MOTHER G8 BROTHER Colon cancer 19 MOTHER Completed stroke 19 FATHER Dementia 19 FATHER Diabetes mellitus 19 MOTHER FHx: macular degeneration 19 FATHER Myocardial infarction 19 MOTHER Heart Disease, Diabetes, Hypertension Review of Systems Constitutional: see HPI, fever Physical Exam Physical Exam Vital Signs Vital Signs - First Documented 12/14/21 12/14/21 09:00 09:05 Temp 38.7 Pulse 120 Resp 24 B/P (MAP) 137/79 (98) Pulse Ox 100 O2 Delivery Non Rebreather O2 Flow Rate 6.00 Capillary Refill : Less Than 3 Seconds Height, Weight, BMI Height: 6'2" Weight: 250lbs. 0.0oz. 113.712965pc; 42.01 BMI Method:Estimated General Appearance: No Apparent Distress, Obese HEENT: PERRL/EOMI, Pharynx Normal Neck: Normal Inspection, Supple Respiratory: No Respiratory Distress, Decreased Breath Sounds, Wheezing Cardiovascular: Regular Rate, Rhythm, No Murmur Gastrointestinal: Normal Bowel Sounds, Soft Extremity: Normal Inspection, Pedal Edema Neurologic/Psychiatric: Other (lethargic, flat affect) Skin: Normal Color, Warm/Dry Results Results/Procedures Labs Laboratory Tests 12/14/21 09:13 Patient resulted labs reviewed. Imaging: Reviewed Imaging Report Assessment/Plan Admission Diagnosis Severe sepsis due to UTI Admission Status: Inpatient Order (span 2 midnights) Reason for Inpatient Admission: IV antibiotics Assessment and Plan Severe sepsis UTI JARRET on CKD SIRS+ with fever and leukocytosis UA consistent with UTI Urine culture pending Blood cultures pending IV Rocephin Gentle IV fluids T2DM Decreased Levemir dose Sliding scale insulin HTN AFib Bipolar disorder BPH Continue home meds Morbid obesity Clinically significant, no acute management needs Diagnosis/Problems Diagnosis/Problems (1) Severe sepsis Status: Acute (2) UTI (urinary tract infection) Status: Acute Qualifiers: Urinary tract infection type: acute cystitis Hematuria presence: without hematuria Qualified Codes: N30.00 - Acute cystitis without hematuria (3) Acute kidney injury superimposed on chronic kidney disease Status: Acute (4) Morbid obesity Status: Chronic GUALBERTO ROJAS MD Dec 14, 2021 18:59
[2021-12-14 19:10] VITALS: BP 121/65
[2021-12-14] MEDS: DIVALPROX SPRINKLE 125 MG (DEPAKOTE) CAP PO SCH (22:55)
[2021-12-14 23:49] VITALS: BP 154/84
[2021-12-15] MEDS: NS IV 1000 ML 1,000 ML IV SCH ×2 (03:31→15:46)
[2021-12-15 03:58] VITALS: BP 155/74
[2021-12-15] MEDS: DIVALPROX SPRINKLE 125 MG (DEPAKOTE) CAP PO SCH ×3 (05:37→20:41)
[2021-12-15] MEDS: CEFEPIME INJECTION 1,000 MG in NS (IVPB) 50 ML IV SCH ×3 (05:37→20:42)
[2021-12-15] MEDS ORDERED: inSUlin ASPART (NovoLOG) 1 UNIT/0.01 ML (CHARGE PER UNIT) SC SCH ×6 (06:00→16:00)
[2021-12-15 06:11] LABS: BASOPHILS % (AUTO) 0 % (0-10); EOSINOPHILS % (AUTO) 0 % (0-10); HEMATOCRIT 32 % (40-54); HEMOGLOBIN 9.4 g/dL (13.3-17.7); LYMPHOCYTES # (AUTO) 0.6 10^3/uL (1.0-4.0); LYMPHOCYTES % (AUTO) 4 % (12-44); MEAN CORPUSCULAR HEMOGLOBIN 26 pg (25-34); MEAN CORPUSCULAR HGB CONC 29 g/dL (32-36); MEAN CORPUSCULAR VOLUME 88 fL (80-99); MEAN PLATELET VOLUME 12.2 fL (9.0-12.2); MONOCYTES # (AUTO) 0.5 10^3/uL (0.0-1.0); MONOCYTES % (AUTO) 3 % (0-12); NEUTROPHILS % (AUTO) 92 % (42-75); PLATELET COUNT 333 10^3/uL (130-400); WHITE BLOOD COUNT 14.2 10^3/uL (4.3-11.0)
[2021-12-15 06:19] LABS: POTASSIUM 4.9 MMOL/L (3.6-5.0)
[2021-12-15 06:20] LABS: CALCIUM 8.6 MG/DL (8.5-10.1)
[2021-12-15] MEDS: POTASSIUM CL 10MEQ/50ML IVPB 50 ML IV SCH (06:22)
[2021-12-15] MEDS: KCL 20 MEQ TAB (K-DUR) PO SCH (06:22)
[2021-12-15 06:26] LABS: CREATININE SERUM 3.1 MG/DL (0.60-1.30); MAGNESIUM 3.1 MG/DL (1.6-2.4)
[2021-12-15] MEDS: MAGNESIUM 1 GM/100 ML IVPB 100 ML IV SCH (06:33)
[2021-12-15 06:57] LABS: ANISOCYTOSIS MARKED; BAND NEUTROPHILS 5 %; BASOPHILS % (MANUAL) 0 %; EOSINOPHILS % (MANUAL) 0 %; HYPOCHROMASIA SLIGHT; LYMPHOCYTES % (MANUAL) 4 %; MONOCYTES % (MANUAL) 1 %; NEUTROPHILS % (MANUAL) 90 %
[2021-12-15 07:31] VITALS: BP 160/77
[2021-12-15] MEDS: GABAPENTIN 100 MG (NEURONTIN) CAP PO SCH ×2 (09:00→20:41)
[2021-12-15] MEDS: APIXABAN 5 MG (ELIQUIS) TABLET PO SCH ×2 (09:00→20:41)
[2021-12-15] MEDS: VANCOMYCIN 2000 MG/NS 500 ML IVPB IV SCH ×2 (09:43)
[2021-12-15] MEDS ORDERED: DULO20CA19 PO (10:49)
[2021-12-15] MEDS ORDERED: GLUC1VIA15 IJ (10:49)
[2021-12-15] MEDS ORDERED: GABA-486 PO (10:49)
[2021-12-15] MEDS ORDERED: GABA800T10 PO (10:49)
[2021-12-15] MEDS ORDERED: FLUC150T41 PO (10:49)
[2021-12-15] MEDS ORDERED: L.AC1CAP6 PO (10:49)
[2021-12-15 11:39] VITALS: BP 158/75
[2021-12-15] MEDS: inSUlin ASPART (NovoLOG) 1 UNIT/0.01 ML (CHARGE PER UNIT) SC SCH ×4 (12:00→20:42)
[2021-12-15] MEDS ORDERED: inSUlin ASPART (NovoLOG) 1 UNIT/0.01 ML (CHARGE PER UNIT) SC NR (13:00)
--- NOTE | 2021-12-15 15:08 | Progress Note - Hospitalist ---
Subjective HPI/CC On Admission Date Seen by Provider: Dec 15, 2021 Time Seen by Provider: 09:55 Elie Josue is a 56 year old male with PMH HTN, HLD, CKD, CAD, AFib, bipolar disorder, who presented from [facility] with hypoxia. He is a poor historian which has been the case on previous admissions as well. He awakens and answers questions intermittently but is essentially uncooperative. He denies pain. He dneies shortness of breath. In the ER he was found to be septic with a urinary tract infection. Subjective/Events-last exam He is feeling better today. He is awake and alert. He is resting in bed. He donte es pain. He denies shortness of breath. He has been able to eat and drink. Focused Exam Lactate Level 12/14/21 09:28: Lactic Acid Level 0.86 Time of Focused Exam: 10:30 Objective Exam Vital Signs Vital Signs Date Time Temp Pulse Resp B/P (MAP) Pulse Ox O2 Delivery O2 Flow Rate FiO2 12/15/21 13:00 87 12/15/21 11:39 36.5 18 158/75 (102) 97 Room Air 12/14/21 09:05 6.00 Capillary Refill : Less Than 3 Seconds General Appearance: No Apparent Distress, Chronically ill, Obese Respiratory: Lungs Clear, No Respiratory Distress Cardiovascular: Regular Rate, Rhythm, No Murmur Gastrointestinal: Normal Bowel Sounds, Soft Extremity: Normal Inspection, Pedal Edema Neurologic/Psychiatric: Alert, Normal Mood/Affect Skin: Normal Color, Warm/Dry Results/Procedures Lab Laboratory Tests 12/15/21 05:00 12/15/21 11:45 Patient resulted labs reviewed. Imaging: Reviewed Imaging Report Assessment/Plan Assessment and Plan Assess & Plan/Chief Complaint Severe sepsis UTI JARRET on CKD SIRS+ with fever and leukocytosis UA consistent with UTI Urine culture with Klebsiella and yeast Blood cultures with no growth to date Continue IV Rocephin Gentle IV fluids T2DM with hyperglycemia Increase Levemir dose Novolog with meals Sliding scale insulin HTN AFib Bipolar disorder BPH Continue home meds Morbid obesity Clinically significant, no acute management needs Diagnosis/Problems Diagnosis/Problems (1) Severe sepsis Status: Acute (2) UTI (urinary tract infection) Status: Acute Qualifiers: Urinary tract infection type: acute cystitis Hematuria presence: without hematuria Qualified Codes: N30.00 - Acute cystitis without hematuria (3) Acute kidney injury superimposed on chronic kidney disease Status: Acute (4) Morbid obesity Status: Chronic (5) T2DM (type 2 diabetes mellitus) Status: Acute Qualifiers: Diabetes mellitus intermediate insulin use: with intermediate use Diabetes mellitus complication status: with hyperglycemia Qualified Codes: E11.65 - Type 2 diabetes mellitus with hyperglycemia; Z79.4 - [facility]CC (current) use of insulin GUALBERTO ROJAS MD Dec 15, 2021 15:08
[2021-12-15 15:37] VITALS: BP 123/74
[2021-12-15] MEDS ORDERED: TAMSULOSIN 0.4 MG (FLOMAX) CAP PO SCH (18:00)
[2021-12-15 19:38] VITALS: BP 149/71
[2021-12-15] MEDS ORDERED: doxAzosin 2 MG (CARDURA) TAB PO SCH (21:00)
[2021-12-16 00:03] VITALS: BP 157/77
[2021-12-16] MEDS: NS IV 1000 ML 1,000 ML IV SCH ×2 (01:01→02:23)
[2021-12-16 04:00] VITALS: BP 165/92
[2021-12-16] MEDS: CEFEPIME INJECTION 1,000 MG in NS (IVPB) 50 ML IV SCH ×2 (06:01→12:43)
[2021-12-16] MEDS: inSUlin ASPART (NovoLOG) 1 UNIT/0.01 ML (CHARGE PER UNIT) SC SCH ×4 (06:01→12:43)
[2021-12-16] MEDS: DIVALPROX SPRINKLE 125 MG (DEPAKOTE) CAP PO SCH ×2 (06:01→14:37)
[2021-12-16 06:30] LABS: BASOPHILS % (AUTO) 0 % (0-10); EOSINOPHILS % (AUTO) 0 % (0-10); HEMATOCRIT 32 % (40-54); HEMOGLOBIN 9.2 g/dL (13.3-17.7); LYMPHOCYTES # (AUTO) 1.2 10^3/uL (1.0-4.0); LYMPHOCYTES % (AUTO) 8 % (12-44); MEAN CORPUSCULAR HEMOGLOBIN 25 pg (25-34); MEAN CORPUSCULAR HGB CONC 29 g/dL (32-36); MEAN CORPUSCULAR VOLUME 88 fL (80-99); MEAN PLATELET VOLUME 12.2 fL (9.0-12.2); MONOCYTES # (AUTO) 0.9 10^3/uL (0.0-1.0); MONOCYTES % (AUTO) 6 % (0-12); NEUTROPHILS # (AUTO) 12.9 10^3/uL (1.8-7.8); NEUTROPHILS % (AUTO) 85 % (42-75); PLATELET COUNT 339 10^3/uL (130-400); WHITE BLOOD COUNT 15.1 10^3/uL (4.3-11.0)
[2021-12-16 06:43] LABS: POTASSIUM 4.4 MMOL/L (3.6-5.0)
[2021-12-16 06:45] LABS: CALCIUM 8.7 MG/DL (8.5-10.1)
[2021-12-16] MEDS: POTASSIUM CL 10MEQ/50ML IVPB 50 ML IV SCH (06:45)
[2021-12-16] MEDS: KCL 20 MEQ TAB (K-DUR) PO SCH (06:45)
[2021-12-16 06:49] LABS: CREATININE SERUM 2.46 MG/DL (0.60-1.30)
[2021-12-16 06:51] LABS: MAGNESIUM 3.1 MG/DL (1.6-2.4)
[2021-12-16] MEDS: MAGNESIUM 1 GM/100 ML IVPB 100 ML IV SCH (06:54)
[2021-12-16] MEDS ORDERED: 1/2 NS IV SOLUTION 1,000 ML IV SCH (07:30)
[2021-12-16 08:05] VITALS: BP 170/73
[2021-12-16] MEDS ORDERED: fluCOnazole (DIFLUCAN) 100 MG TAB PO SCH (09:00)
[2021-12-16] MEDS ORDERED: TROUGH ORDER-PHARMACY XX NR (09:00)
[2021-12-16] MEDS: APIXABAN 5 MG (ELIQUIS) TABLET PO SCH (09:06)
[2021-12-16] MEDS: GABAPENTIN 100 MG (NEURONTIN) CAP PO SCH (09:06)
[2021-12-16] MEDS: VANCOMYCIN 2000 MG/NS 500 ML IVPB IV SCH ×2 (10:30)
[2021-12-16 11:42] VITALS: BP 158/67
[2021-12-16] MEDS ORDERED: CEFD300C3 PO (12:09)
--- NOTE | 2021-12-16 13:54 | Discharge Summary ---
Discharge Summary Hospital Course Problems/Dx: (1) Severe sepsis Status: Acute (2) UTI (urinary tract infection) Status: Acute Qualifiers: Qualified Codes: N30.00 - Acute cystitis without hematuria (3) Acute kidney injury superimposed on chronic kidney disease Status: Acute (4) Morbid obesity Status: Chronic (5) T2DM (type 2 diabetes mellitus) Status: Acute Qualifiers: Qualified Codes: E11.65 - Type 2 diabetes mellitus with hyperglycemia; Z79.4 - exterminator (current) use of insulin Hospital Course Date of Admission: Dec 14, 2021 at 11:31 Admission Diagnosis : Severe sepsis due to UTI Family Physician/Provider: Elizabeth Quesada MD Date of Discharge: 12/16/21 Discharge Diagnosis: Severe sepsis due to UTI Hospital Course: Elie Josue is a 56 year old male who was admitted with severe sepsis due to UTI. He has a chronic indwelling reina catheter due to skin breakdown in his groin. He was started on IV antibiotics and improved. His urine culture returned with Klebsiella and yeast. He was transitioned to Omnicef and Diflucan. He also had an acute kidney injury superimposed on chronic kidney disease which improved with IV fluids. He also had issues with hyperglycemia and was treated with sliding scale insulin in addition to his insulin regimen. He was discharged back to [facility] in stable condition. Labs and Pending Lab Test: Laboratory Tests 12/15/21 14:06: Glucometer 509*H 12/15/21 15:36: Glucometer 397H 12/15/21 20:14: Glucometer 370H 12/16/21 05:17: Glucometer 207H 12/16/21 05:38: White Blood Count 15.1H, Red Blood Count 3.62L, Hemoglobin 9.2L, Hematocrit 32L, Mean Corpuscular Volume 88, Mean Corpuscular Hemoglobin 25, Mean Corpuscular Hemoglobin Concent 29L, Red Cell Distribution Width 19.9H, Platelet Count 339, Mean Platelet Volume 12.2, Immature Granulocyte % (Auto) 1, Neutrophils (%) (Auto) 85H, Lymphocytes (%) (Auto) 8L, Monocytes (%) (Auto) 6, Eosinophils (%) (Auto) 0, Basophils (%) (Auto) 0, Neutrophils # (Auto) 12.9H, Lymphocytes # (Auto) 1.2, Monocytes # (Auto) 0.9, Eosinophils # (Auto) 0.0, Basophils # (Auto) 0.0, Immature Granulocyte # (Auto) 0.1, Sodium Level 149H, Potassium Level 4.4, Chloride Level 116H, Carbon Dioxide Level 19L, Anion Gap 14, Blood Urea Nitrogen 57H, Creatinine 2.46H, Estimat Glomerular Filtration Rate 30, BUN/Creatinine Ratio 23, Glucose Level 225H, Calcium Level 8.7, Magnesium Level 3.1H 12/16/21 09:09: Vancomycin Level Trough 27.7*H 12/16/21 10:37: Glucometer 241H Microbiology 12/14/21 Urine Culture - Preliminary, Resulted Probable Klebsiella/Enterobact YEAST 12/14/21 Blood Culture - Preliminary, Resulted No growth Home Meds Active Cefdinir 300 Mg Capsule 300 Mg PO BID 5 Days Reported Gabapentin 100 Mg Capsule 200 Mg PO TID TAKES 2 (100MG) CAPS Probiotic (L.acidoph & Paracasei,B.lactis) 10 Billion Cell Capsule 1 Each PO HS STARTING 12-13-2021 X 7 DAYS (LAST DOSE SCHEUDLED FOR 12-19-2021) Gabapentin 800 Mg Tablet 800 Mg PO HS Duloxetine HCl 20 Mg Capsule.dr 40 Mg PO DAILY TAKES 2 (20MG) CAPS Fluconazole 150 Mg Tablet 150 Mg PO DAILY STARTING 12-13-2021 X 7 DAYS (LAST DOSE SCHEDULED FOR 12-19-2021) Glucagon Emergency Kit (Glucagon HCl) 1 Mg Vial 1 Mg IJ UD PRN Levemir Flextouch (Insulin Detemir) 100 Unit/Ml (3 Ml) Insuln.pen 25 Unit SQ BID Humalog Kwikpen (Insulin Lispro) 200 Unit/Ml (3 Ml) Insuln.pen 20 Unit SQ AC Doxazosin Mesylate 2 Mg Tablet 2 Mg PO HS Tramadol HCl 50 Mg Tablet 50 Mg PO Q8HR PRN Symbicort 160-4.5 Mcg Inhaler (Budesonide/Formoterol Fumarate) 160 Mcg-4.5 Mcg/Actuation Hfa.aer.ad 2 Puff IH BID Gabapentin 400 Mg Capsule 400 Mg PO HS TAKES ALONG WITH (800MG) CAP TO TOTAL 1200MG AT BEDTIME Flintstones Complete Chew Tab (Ped Multivit #43/Iron Fumarate) 18 Mg Iron Tab.chew 18 Mg PO DAILY Jardiance (Empagliflozin) 25 Mg Tablet 25 Mg PO DAILY Ondansetron Odt (Ondansetron) 4 Mg Tab.rapdis 4 Mg PO Q8H PRN Tylenol (Acetaminophen) 325 Mg Tablet 650 Mg PO Q6H PRN Calcium Carbonate 500 Mg Tablet 500 Mg PO Q6H PRN Guaifenesin-Dm 100-10 mg/5 ml (Guaifenesin/Dextromethorphan) 5 Ml Liquid 10 Ml PO Q4H PRN Miralax (Polyethylene Glycol 3350) 17 Gm Powd.pack 17 Gm PO Q12H PRN Meclizine HCl 25 Mg Tablet 25 Mg PO DAILY PRN Docusate Sodium 100 Mg Capsule 100 Mg PO DAILY PRN Loperamide (Loperamide HCl) 2 Mg Tablet 2 Mg PO Q1H PRN MDD 8MG Albuterol Sulfate 2.5 Mg/0.5 Ml Vial.neb 2.5 Mg INH Q8H PRN Metoprolol Tartrate 100 Mg Tablet 100 Mg PO BID HOLD IF PULSE IS LESS THAN 50 AND IF BLOOD PRESSURE LESS THAN 100/50 Melatonin 3 Mg Tablet 3 Mg PO HS Aspirin EC (Aspirin) 81 Mg Tablet.dr 81 Mg PO DAILY Amlodipine Besylate 10 Mg Tablet 10 Mg PO DAILY HOLD FOR PULSE <50 AND BP <100/50 Flomax (Tamsulosin HCl) 0.4 Mg Cap 0.4 Mg PO DAILY Spiriva Respimat 1.25MCG/ACTUATION (Tiotropium [place]) 4 Gm Mist.inhal 2 Puff IH DAILY Furosemide 20 Mg Tablet 60 Mg PO DAILY TAKES 3 (20MG) TABLETS Alphagan P (Brimonidine Tartrate) 5 Ml Drops 1 Drop OU BID Rosuvastatin Calcium 40 Mg Tablet 40 Mg PO DAILY Eliquis (Apixaban) 5 Mg Tablet 5 Mg PO BID Aripiprazole 10 Mg Tablet 10 Mg PO DAILY Divalproex Sodium 250 Mg Tablet.dr 250 Mg PO TID Assessment/Pt Instructions See instructions Discharge Planning: >30 minutes discharge planning Discharge Instructions Discharge Diet: ADA Diet Activity as Tolerated: Yes Discharge Physical Examination Vital Signs Vital Signs Date Time Temp Pulse Resp B/P (MAP) Pulse Ox O2 Delivery O2 Flow Rate FiO2 12/16/21 11:42 36.0 90 18 158/67 (97) 98 Room Air 12/16/21 10:19 0.00 General Appearance: No Apparent Distress, Obese Respiratory: No Respiratory Distress, Decreased Breath Sounds Cardiovascular: Regular Rate, Rhythm, No Murmur Gastrointestinal: Normal Bowel Sounds, Soft Extremity: Normal Inspection, No Pedal Edema Skin: Normal Color, Warm/Dry Neurologic/Psychiatric: Alert, Oriented x3, Normal Mood/Affect Allergies: Coded Allergies: penicillin V (Unverified Allergy, Unknown, 10/01/08) erythromycin base (Unverified Adverse Reaction, Mild, VOMITING, 03/18/13) Copy Copies To 1: ELIZABETH QUESADA MD Discharge Summary Date of Admission Dec 14, 2021 at 11:31 Date of Discharge Discharge Date: Dec 16, 2021 Discharge Time: 13:51 Admission Diagnosis Severe sepsis due to UTI Discharge Diagnosis Severe sepsis UTI JARRET on CKD T2DM with hyperglycemia (1) Severe sepsis Status: Acute (2) UTI (urinary tract infection) Status: Acute Qualifiers: Qualified Codes: N30.00 - Acute cystitis without hematuria (3) Acute kidney injury superimposed on chronic kidney disease Status: Acute (4) Morbid obesity Status: Chronic (5) T2DM (type 2 diabetes mellitus) Status: Acute Qualifiers: Qualified Codes: E11.65 - Type 2 diabetes mellitus with hyperglycemia; Z79.4 - exterminator (current) use of insulin GUALBERTO ROJAS MD Dec 16, 2021 13:54
--- NOTE | 2021-12-21 05:48 | Physician Query Clarification ---
PQ-Link Infection to Dev/Proc Admission/Discharge Admission Date: Dec 14, 2021 at 11:31 Discharge Date: Dec 16, 2021 at 15:10 GUALBERTO Sutton MD The medical record reflects the following clinical scenario: History/Risk Factors: 56 y/o male patient had chronic reina admitted with severe sepsis due to urinary tract infection. Clinical Findings: Creamy, milky orange and white urine in renia catheter bag, wbc-13.6 H. Treatment: IV antibiotics, changed out reina catheter. Question: Can you specify if the sepsis is due to/associated with reina catheter? Please document a response in Progress Note or Discharge Summary. 1. Yes - Sepsis[infection] is due to/associated with reina catheter. 2. No - Sepsis is not due to/associated with reina catheter. 3. Other, with explanation of the clinical findings. 4. Clinically undetermined, no explanation for the clinical findings. PHYSICIAN RESPONSE Specify if infection: 1 In responding to this query, please exercise your independent professional judgment. The purpose of this communication is to more accurately reflect the complexity of your patients condition. The fact that a question is asked does not imply that any particular answer is desired or expected. Thank you for your timely response to this clarification. Requestors name: [ ] Phone # [ ] THIS PHYSICIAN QUERY FORM IS A PERMANENT PART OF THE MEDICAL RECORD HOMA ENCINAS Dec 21, 2021 05:48 GUALBERTO ROJAS MD Dec 29, 2021 21:49
== END 2021-12-16 15:10 | disposition short-term general hospital (02) | DRG 698 ==
LOC: EDUNIT# 08:48 → ER 08:49 → 4TH 11:31
PROVIDERS: ADMIT Internal Medicine; ATTEND Internal Medicine
PROC: 5A09357 Assistance with Respiratory Ventilation, Less than 24 Consecutive Hours, Continuous Positive Airway Pressure (ICD-10-PCS; principal; 2021-12-16)
DX: T83.518A Infection and inflammatory reaction due to other urinary catheter, initial encounter (principal); A41.9 Sepsis, unspecified organism; R65.20 Severe sepsis without septic shock; N17.9 Acute kidney failure, unspecified; I42.9 Cardiomyopathy, unspecified; Z68.41 Body mass index [BMI] 40.0-44.9, adult; J44.1 Chronic obstructive pulmonary disease with (acute) exacerbation; N18.9 Chronic kidney disease, unspecified; E66.01 Morbid (severe) obesity due to excess calories; E11.22 Type 2 diabetes mellitus with diabetic chronic kidney disease; B96.1 Klebsiella pneumoniae [K. pneumoniae] as the cause of diseases classified elsewhere; B37.9 Candidiasis, unspecified; E11.65 Type 2 diabetes mellitus with hyperglycemia; I25.10 Atherosclerotic heart disease of native coronary artery without angina pectoris; I12.9 Hypertensive chronic kidney disease with stage 1 through stage 4 chronic kidney disease, or unspecified chronic kidney disease; F17.210 Nicotine dependence, cigarettes, uncomplicated; E78.00 Pure hypercholesterolemia, unspecified; E11.51 Type 2 diabetes mellitus with diabetic peripheral angiopathy without gangrene; E11.40 Type 2 diabetes mellitus with diabetic neuropathy, unspecified; K21.9 Gastro-esophageal reflux disease without esophagitis; M79.7 Fibromyalgia; M06.9 Rheumatoid arthritis, unspecified; G89.29 Other chronic pain; M54.9 Dorsalgia, unspecified; H40.9 Unspecified glaucoma; F31.9 Bipolar disorder, unspecified; G40.909 Epilepsy, unspecified, not intractable, without status epilepticus; F41.9 Anxiety disorder, unspecified; I48.0 Paroxysmal atrial fibrillation; K57.90 Diverticulosis of intestine, part unspecified, without perforation or abscess without bleeding; Z20.822 Contact with and (suspected) exposure to COVID-19; R41.0 Disorientation, unspecified; N40.0 Benign prostatic hyperplasia without lower urinary tract symptoms; Z79.4 Long term (current) use of insulin; Z79.82 Long term (current) use of aspirin; Z86.73 Personal history of transient ischemic attack (TIA), and cerebral infarction without residual deficits
CPT/HCPCS: 36415; 71045; 80048; 80053; 80202; 81000; 82805; 82947; 83605; 83735; 83880; 84145; 84484; 85007; 85025; 85027; 85379; 85610; 85730; 86141; 87040; 87077; 87088; 87636; 93005; 94640; 94644; 94660; 94760; 96365; 96366; 96375

== ENCOUNTER 2022-02-04 15:43 | Inpatient (IN) | payer MEDICARE, MEDICAID ==
[~2022-02-04] VITALS: Ht 182.8 cm; Wt 163.5 kg
[~2022-02-04 15:43] MED LIST changes: +CEFD300C3 PO; +DULO20CA19 PO; +FLUC150T41 PO; +GABA-486 PO; +GLUC1VIA15 IJ; -GUAI5LIQ11 PO; +GUAI5LIQ14 PO; +L.AC1CAP6 PO
--- NOTE | 2022-02-04 16:05 | ED Lower Extremity ---
General Stated Complaint: RIGHT BIG TOE Source: patient, caregiver (at [facility]) Exam Limitations: no limitations History of Present Illness Date Seen by Provider: Feb 04, 2022 Time Seen by Provider: 15:50 Initial Comments Patient is a 57-year-old -[place] male history of diabetes who presents to the emergency department today with a chief complaint of right great toe pain. Patient states the pain started just today. He had a callus removed by a local floor waxer almost 2 weeks ago. He states the pain is significant. Hurts to walk on it/bear weight. No reported fevers. No pain in his legs. He is a smoker. Onset: yesterday Severity: moderate Pain/Injury Location: right 1st toe Allergies and Home Medications Allergies Coded Allergies: penicillin V (Unverified Allergy, Unknown, 10/01/08) erythromycin base (Unverified Adverse Reaction, Mild, VOMITING, 03/18/13) Patient Home Medication List Home Medication List Reviewed: Yes Acetaminophen (Tylenol) 325 Mg Tablet, 650 MG PO Q6H PRN for PAIN-MILD (1-4), (Reported) Entered as Reported by: KALEN ALBERTO on 09/17/211410 Last Action: Held Albuterol Sulfate (Albuterol Sulfate) 2.5 Mg/0.5 Ml Vial.neb, 2.5 MG INH Q8H PRN for SHORTNESS OF BREATH, (Reported) Entered as Reported by: KALEN ALBERTO on 09/17/211410 Last Action: Held Amlodipine Besylate (Amlodipine Besylate) 10 Mg Tablet, 10 MG PO DAILY, (Reported) Entered as Reported by: KALEN ALBERTO on 09/17/211410 Last Action: Continued Apixaban (Eliquis) 5 Mg Tablet, 5 MG PO BID, (Reported) Entered as Reported by: JIM GRADY on 12/03/151004 Last Action: Continued Aripiprazole (Aripiprazole) 10 Mg Tablet, 10 MG PO DAILY, (Reported) Entered as Reported by: JIM GRADY on 12/03/151004 Last Action: Continued Aspirin (Aspirin EC) 81 Mg Tablet.dr, 81 MG PO DAILY, (Reported) Entered as Reported by: KALEN ALBERTO on 09/17/211410 Last Action: Continued Brimonidine Tartrate (Alphagan P) 5 Ml Drops, 1 DROP OU BID, (Reported) Entered as Reported by: KERA FELIPE on 02/22/21 141 Last Action: Converted Budesonide/Formoterol Fumarate (Symbicort 160-4.5 Mcg Inhaler) 160 Mcg-4.5 Mcg/Actuation Hfa.aer.ad, 2 PUFF IH BID, (Reported) Entered as Reported by: RASTA SANCHES on 11/22/21 1202 Last Action: Converted Calcium Carbonate (Calcium Carbonate) 500 Mg Tablet, 500 MG PO Q6H PRN for HEARTBURN, (Reported) Entered as Reported by: KALEN ALBERTO on 09/17/21 141 Last Action: Converted Dextrose (Glucose Gel) 40 % Gel..gram., 38 GM PO PRN PRN for HYPOGLYCEMIA, (Reported) Entered as Reported by: DAYLIN SHARP on 02/05/22 120 Last Action: New Order Divalproex Sodium (Divalproex Sodium) 250 Mg Tablet.dr, 250 MG PO TID, (Reported) Entered as Reported by: JIM GRADY on 12/03/15 1005 Last Action: Continued Docusate Sodium (Docusate Sodium) 100 Mg Capsule, 100 MG PO DAILY PRN for CONSTIPATION-1ST LINE, (Reported) Entered as Reported by: KALEN ALBERTO on 09/17/21 141 Last Action: Continued Doxazosin Mesylate (Doxazosin Mesylate) 2 Mg Tablet, 2 MG PO HS, (Reported) Entered as Reported by: SHADY CHONG on 12/01/21 1051 Last Action: Continued Duloxetine HCl (Duloxetine HCl) 20 Mg Capsule.dr, 40 MG PO DAILY, (Reported) Entered as Reported by: SHADY CHONG on 12/15/21 1049 Last Action: Continued Empagliflozin (Jardiance) 25 Mg Tablet, 25 MG PO DAILY, (Reported) Entered as Reported by: OSMANY QUEZADA on 11/20/21 1544 Last Action: Converted Furosemide (Furosemide) 20 Mg Tablet, 60 MG PO DAILY, (Reported) Entered as Reported by: KERA FELIPE on 02/22/21 141 Last Action: Continued Gabapentin (Gabapentin) 100 Mg Capsule, 200 MG PO TID, (Reported) Entered as Reported by: SHADY CHONG on 12/15/21 1049 Last Action: Continued Glucagon,Human Recombinant (Glucagon Emergency Kit) 1 Mg Soln, 1 MG IJ PRN PRN for HYPOGLYCEMIA, (Reported) Entered as Reported by: DAYLIN SHARP on 02/05/22 1208 Last Action: Held Guaifenesin/Dextromethorphan (Guaifenesin-Dm 100-10 mg/5 ml) 5 Ml Liquid, 10 ML PO Q4H PRN for COUGH, (Reported) Entered as Reported by: KALEN ALBERTO on 09/17/211410 Last Action: Held Insulin Detemir (Levemir Flextouch) 100 Unit/Ml (3 Ml) Insuln.pen, 25 UNIT SQ BID, (Reported) Entered as Reported by: SHADY CHONG on 12/01/211050 Last Action: Held Insulin Lispro (Humalog Kwikpen) 200 Unit/Ml (3 Ml) Insuln.pen, 20 UNIT SQ AC, (Reported) Entered as Reported by: SHADY CHONG on 12/01/211050 Last Action: Held Loperamide HCl (Loperamide) 2 Mg Tablet, 2 MG PO Q1H PRN for DIARRHEA, (Reported) Entered as Reported by: KALEN ALBERTO on 09/17/211410 Last Action: Held Meclizine HCl (Meclizine HCl) 25 Mg Tablet, 25 MG PO DAILY PRN for VERTIGO, (Reported) Entered as Reported by: KALEN ALBERTO on 09/17/211410 Last Action: Held Melatonin (Melatonin) 3 Mg Tablet, 3 MG PO HS, (Reported) Entered as Reported by: KALEN ALBERTO on 09/17/211410 Last Action: Continued Metoprolol Tartrate (Metoprolol Tartrate) 100 Mg Tablet, 100 MG PO BID, (Reported) Entered as Reported by: KALEN ALBERTO on 09/17/211410 Last Action: Converted Ondansetron (Ondansetron Odt) 4 Mg Tab.rapdis, 4 MG PO Q8H PRN for NAUSEA/VOMITING-1ST LINE, (Reported) Entered as Reported by: KALEN ALBERTO on 09/17/211410 Last Action: Continued Ped Multivit #43/Iron Fumarate (Flintstones Complete Chew Tab) 18 Mg Iron Tab.chew, 18 MG PO DAILY, (Reported) Entered as Reported by: RASTA SANCHES on 11/22/21 1155 Last Action: Held Polyethylene Glycol 3350 (Miralax) 17 Gm Powd.pack, 17 GM PO Q12H PRN for CONSTIPATION-2ND LINE, (Reported) Entered as Reported by: KALEN ALBERTO on 09/17/21 1411 Last Action: Continued Potassium Chloride (Potassium Chloride) 20 Meq Tab.er.prt, 20 MEQ PO DAILY, (Reported) Entered as Reported by: DAYLIN SHARP on 02/05/22 1208 Last Action: Held Rosuvastatin Calcium (Rosuvastatin Calcium) 40 Mg Tablet, 40 MG PO DAILY, (Reported) Entered as Reported by: KERA FELIPE on 02/22/21 141 Last Action: Converted Tamsulosin HCl (Flomax) 0.4 Mg Cap, 0.4 MG PO DAILY, (Reported) Entered as Reported by: KERA FELIPE on 02/22/211414 Last Action: Continued Tiotropium Moro (Spiriva Respimat 1.25MCG/ACTUATION) 4 Gm Mist.inhal, 2 PUFF IH DAILY, (Reported) Entered as Reported by: KERA FELIPE on 02/22/21 141 Last Action: Converted Tramadol HCl (Tramadol HCl) 50 Mg Tablet, 50 MG PO Q8HR PRN for PAIN-MODERATE (5-7), (Reported) Entered as Reported by: RENETTA GAUTHIER on 11/30/21 1657 Last Action: Held Discontinued Medications Cefdinir (Cefdinir) 300 Mg Capsule, 300 MG PO BID Discontinued Reason: No Longer Taking Prescribed by: GUALBERTO ROJAS on 12/16/21 1209 Last Action: Discontinued Fluconazole (Fluconazole) 150 Mg Tablet, 150 MG PO DAILY, (Reported) Discontinued Reason: No Longer Taking Entered as Reported by: SHADY CHONG on 12/15/21 1049 Last Action: Discontinued Gabapentin (Gabapentin) 400 Mg Capsule, 400 MG PO HS, (Reported) Discontinued Reason: No Longer Taking Entered as Reported by: RASTA SANCHES on 11/22/21 1156 Last Action: Discontinued Gabapentin (Gabapentin) 800 Mg Tablet, 800 MG PO HS, (Reported) Discontinued Reason: No Longer Taking Entered as Reported by: SHADY CHONG on 12/15/21 1049 Last Action: Discontinued Glucagon HCl (Glucagon Emergency Kit) 1 Mg Vial, 1 MG IJ UD PRN for HYPOGLYCEMIA, (Reported) Discontinued Reason: No Longer Taking Entered as Reported by: SHADY CHONG on 12/15/21 104 Last Action: Discontinued L.acidoph & Paracasei,B.lactis (Probiotic) 10 Billion Cell Capsule, 1 EACH PO HS, (Reported) Discontinued Reason: No Longer Taking Entered as Reported by: SHADY CHONG on 12/15/21 104 Last Action: Discontinued Review of Systems Constitutional: see HPI EENTM: no symptoms reported Respiratory: dyspnea on exertion Cardiovascular: no symptoms reported Gastrointestinal: no symptoms reported (good appetite) Genitourinary: no symptoms reported (urinates "to much") Musculoskeletal: joint pain (right great toe) Psychiatric/Neurological: No Symptoms Reported All Other Systems Reviewed Negative Unless Noted: Yes Past Lgfwrsn-Vjkykk-Vxbrim Hx Immunizations Up To Date First/Initial COVID19 Vaccinat: 07/16/20 Second COVID19 Vaccination Bryce: 08/05/20 Third COVID19 Vaccination Date: 10/27/21 Seasonal Allergies Seasonal Allergies: No Past Medical History Surgery/Hospitalization HX: DM, HTN, HYPOXIA, BIPOLAR, NEUROPATHY, ANXIETY, CHF, AFIB, CKD, COVID, VERTIGO, GERD Surgeries: Yes Cardiac, Dialysis, Orthopedic, Renal, Vascular Surgery Respiratory: Yes (COMMUNITY ACQUIRED PNEUMONIA) Asthma, Pneumonia Currently Using CPAP: No Currently Using BIPAP: No Cardiac: Yes (PAD) Atrial Fibrillation, Cardiomyopathy, Coronary Artery Disease, High Cholesterol, Hypertension, Peripheral Vascular, Valvular Heart Disease Neurological: Yes (BRAIN INJURY CAUSES EMOTIONS TO CHANGE . LEFT SIDE WEAKNESS) Neuropathy Reproductive Disorders: No Sexually Transmitted Disease: No HIV/AIDS: No Kidney Stones, Renal Failure Gastrointestinal: Yes Colitis, Gastroesophageal Reflux, Diverticulosis, Polyps, Hiatal Hernia Musculoskeletal: Yes (WEAKNESS IN LEGS FROM STROKE ) Arthritis, Fibromyalgia, Rheumatoid Arthritis, Chronic Back Pain Endocrine: Yes Diabetes, Insulin dep Glaucoma Loss of Vision: Bilateral Hearing Impairment: Denies Cancer: No Psychosocial: Yes Sleep Difficulties, Bipolar, Depression Integumentary: No Blood Disorders: Yes (ANEMIA, BLOOD CLOTS ) Family Medical History Cardiovascular disease 19 MOTHER G8 BROTHER Colon cancer 19 MOTHER Completed stroke 19 FATHER Dementia 19 FATHER Diabetes mellitus 19 MOTHER FHx: macular degeneration 19 FATHER Myocardial infarction 19 MOTHER Heart Disease, Diabetes, Hypertension Physical Exam Vital Signs Vital Signs - First Documented 02/04/22 15:50 Temp 37.0 Pulse 60 Resp 26 B/P (MAP) 120/76 (91) Pulse Ox 99 Capillary Refill : Height, Weight, BMI Height: 6'2" Weight: 250lbs. 0.0oz. 113.945736gm; 42.01 BMI Method:Estimated General Appearance: WD/WN, no apparent distress, obese Neck: normal inspection Cardiovascular: regular rate, rhythm Respiratory: no respiratory distress, no accessory muscle use, wheezing (slight exp wheeze with exertion getting up and over to the bed from the wheel chair to the stretcher; slightly labored) Gastrointestinal: soft, distended, other (obese) Hips: bilateral hip normal range of motion Legs: bilateral leg swelling (woody edema bilaterally with skin chages consistent with PVD) Knees: bilateral knee normal range of motion Ankles: bilateral ankle normal range of motion, bilateral ankle swelling Feet: right foot infection (Right great toe), right foot pain (Right great toe), right foot soft tissue tenderness (Right great toe), right foot swelling (Right great toe), right foot other (Patient has circumferential edema with ulceration on the volar aspect of the right great toe and maceration of the skin at the MTP joint and between the first and second toe, no purulence. The toe is very tender to palpation. There seems to be some dark discoloration of the toe as the patient is -[place] it is difficult to evaluate for erythema) Neurologic/Tendon: normal sensation Neurologic/Psychiatric: no motor/sensory deficits, alert, normal mood/affect, oriented x 3 Skin: normal color, warm/dry Progress/Results/Core Measures Results/Orders Lab Results Laboratory Tests Test 02/04/22 16:14 02/04/22 16:32 Range/Units Glucometer 133 H 70-110 MG/DL White Blood Count 10.5 4.3-11.0 10^3/uL Red Blood Count 3.88 L 4.30-5.52 10^6/uL Hemoglobin 9.7 L 13.3-17.7 g/dL Hematocrit 33 L 40-54 % Mean Corpuscular Volume 85 80-99 fL Mean Corpuscular Hemoglobin 25 25-34 pg Mean Corpuscular Hemoglobin Concent 29 L 32-36 g/dL Red Cell Distribution Width 20.7 H 10.0-14.5 % Platelet Count 350 130-400 10^3/uL Mean Platelet Volume 10.7 9.0-12.2 fL Immature Granulocyte % (Auto) 1 % Neutrophils (%) (Auto) 74 42-75 % Lymphocytes (%) (Auto) 12 12-44 % Monocytes (%) (Auto) 11 0-12 % Eosinophils (%) (Auto) 2 0-10 % Basophils (%) (Auto) 1 0-10 % Neutrophils # (Auto) 7.8 1.8-7.8 10^3/uL Lymphocytes # (Auto) 1.2 1.0-4.0 10^3/uL Monocytes # (Auto) 1.1 H 0.0-1.0 10^3/uL Eosinophils # (Auto) 0.2 0.0-0.3 10^3/uL Basophils # (Auto) 0.1 0.0-0.1 10^3/uL Immature Granulocyte # (Auto) 0.1 0.0-0.1 10^3/uL Erythrocyte Sedimentation Rate > 140 H 0-30 MM/HR Prothrombin Time 15.1 H 12.2-14.7 SEC INR Comment 1.1 0.8-1.4 Activated Partial Thromboplast Time 25 24-35 SEC Sodium Level 140 135-145 MMOL/L Potassium Level 6.1 H 3.6-5.0 MMOL/L Chloride Level 107 98-107 MMOL/L Carbon Dioxide Level 22 21-32 MMOL/L Anion Gap 11 5-14 MMOL/L Blood Urea Nitrogen 22 H 7-18 MG/DL Creatinine 1.54 H 0.60-1.30 MG/DL Estimat Glomerular Filtration Rate 52 BUN/Creatinine Ratio 14 Glucose Level 152 H 70-105 MG/DL Lactic Acid Level 1.43 0.50-2.00 MMOL/L Calcium Level 9.4 8.5-10.1 MG/DL Corrected Calcium 10.1 8.5-10.1 MG/DL Total Bilirubin 0.2 0.1-1.0 MG/DL Aspartate Amino Transf (AST/SGOT) 9 5-34 U/L Alanine Aminotransferase (ALT/SGPT) 9 0-55 U/L Alkaline Phosphatase 68 40-136 U/L C-Reactive Protein High Sensitivity 4.37 H 0.00-0.50 MG/DL Total Protein 8.5 H 6.4-8.2 GM/DL Albumin 3.1 L 3.2-4.5 GM/DL My Orders Orders - ADILENE POLO MD Cbc With Automated Diff (02/04/22 15:59) Comprehensive Metabolic Panel (02/04/22 15:59) Blood Culture (02/04/22 15:59) Sputum Culture (02/04/22 15:59) Urinalysis (02/04/22 15:59) Urine Culture (02/04/22 15:59) Protime With Inr (02/04/22 15:59) Partial Thromboplastin Time (02/04/22 15:59) Chest 1 View, Ap/Pa Only (02/04/22 15:59) Ed Iv/Invasive Line Start (02/04/22 15:59) Ed Iv/Invasive Line Start (02/04/22 15:59) Vital Signs Adult Sepsis Patie Q15M (02/04/22 15:59) O2 (02/04/22 15:59) Remove Rings In Anticipation O (02/04/22 15:59) Lactic Acid Analyzer (02/04/22 15:59) Erythrocyte Sedimentation Rate (02/04/22 15:59) Hs C Reactive Protein (02/04/22 15:59) Foot, Right, 3 View (02/04/22 15:59) Accucheck Stat ONCE (02/04/22 16:00) Vancomycin Injection (Vancomycin Injecti (02/04/22 17:30) Ns Iv 1000 Ml (Sodium Chloride 0.9%) (02/04/22 17:30) Ns Iv 1000 Ml (Sodium Chloride 0.9%) (02/04/22 17:31) Cefepime Injection (Maxipime Injection) (02/04/22 17:45) Vital Signs/I&O 02/04/22 15:50 Temp 37.0 Pulse 60 Resp 26 B/P (MAP) 120/76 (91) Pulse Ox 99 Departure Communication (Admissions) Time/Spoke to Admitting Phy: 17:[address] Cuevas Time/Spoke to Consulting Phy: 17:[address] De Impression Primary Impression: Osteomyelitis of great toe of right foot Additional Impression: Diabetes Qualified Codes: E11.621 - Type 2 diabetes mellitus with foot ulcer; L97.509 - Non-pressure chronic ulcer of other part of unspecified foot with unspecified severity; Z79.4 - MCFP (current) use of insulin Disposition: ADMITTED INPATIENT Condition: Stable Admissions Decision to Admit Reason: Admit from ER (General) Decision to Admit/Date: Feb 04, 2022 Time/Decision to Admit Time: 17:49 Departure-Patient Inst. Referrals: ELIZABETH QUESADA MD (PCP/Family) Primary Care Physician ADILENE POLO MD Feb 04, 2022 16:05
--- NOTE | 2022-02-04 16:26 | Diagnostic Imaging Report ---
Indication: Shortness of breath Portable chest 4:10 PM Heart size and pulmonary vascularity are normal. Lungs are clear. There are no effusions or pneumothoraces. IMPRESSION: No acute abnormalities in the chest Dictated by: Dictated on workstation # [id number]
--- NOTE | 2022-02-04 16:33 | Diagnostic Imaging Report ---
INDICATION: Right foot pain AP, oblique, lateral views of the right foot are obtained. No fracture or acute bony abnormality seen. There is posterior calcaneal spurring. There is degenerative changes throughout the tarsometatarsal joints. There are diffuse degenerative changes throughout the interphalangeal joints. No acute bony abnormality is detected. IMPRESSION: Multifocal degenerative changes in the right foot with no acute appearing abnormality. Dictated by: Dictated on workstation # [id number]
[2022-02-04 16:48] LABS: BASOPHILS # (AUTO) 0.1 10^3/uL (0.0-0.1); BASOPHILS % (AUTO) 1 % (0-10); EOSINOPHILS # (AUTO) 0.2 10^3/uL (0.0-0.3); EOSINOPHILS % (AUTO) 2 % (0-10); HEMATOCRIT 33 % (40-54); HEMOGLOBIN 9.7 g/dL (13.3-17.7); LYMPHOCYTES # (AUTO) 1.2 10^3/uL (1.0-4.0); LYMPHOCYTES % (AUTO) 12 % (12-44); MEAN CORPUSCULAR HEMOGLOBIN 25 pg (25-34); MEAN CORPUSCULAR HGB CONC 29 g/dL (32-36); MEAN CORPUSCULAR VOLUME 85 fL (80-99); MEAN PLATELET VOLUME 10.7 fL (9.0-12.2); MONOCYTES # (AUTO) 1.1 10^3/uL (0.0-1.0); MONOCYTES % (AUTO) 11 % (0-12); NEUTROPHILS # (AUTO) 7.8 10^3/uL (1.8-7.8); NEUTROPHILS % (AUTO) 74 % (42-75); PLATELET COUNT 350 10^3/uL (130-400); WHITE BLOOD COUNT 10.5 10^3/uL (4.3-11.0)
[2022-02-04 16:52] LABS: INR 1.1 (0.8-1.4); PROTHROMBIN TIME PATIENT 15.1 SEC (12.2-14.7)
[2022-02-04 17:01] LABS: ALBUMIN 3.1 GM/DL (3.2-4.5); BILIRUBIN,TOTAL 0.2 MG/DL (0.1-1.0); CALCIUM 9.4 MG/DL (8.5-10.1); CREATININE SERUM 1.54 MG/DL (0.60-1.30); POTASSIUM 6.1 MMOL/L (3.6-5.0); TOTAL PROTEIN 8.5 GM/DL (6.4-8.2)
[2022-02-04 17:17] LABS: ERYTHROCYTE SEDIMENTATION RATE > 140 MM/HR (0-30)
[2022-02-04] MEDS ORDERED: NS IV 1000 ML 1,000 ML IV SCH (17:30)
[2022-02-04] MEDS ORDERED: VANCOMYCIN INJECTION 1,000 MG in NS (IVPB) 250 ML IV ONE (17:30)
[2022-02-04] MEDS ORDERED: NS IV 1000 ML 0 ML ONE (17:31)
[2022-02-04] MEDS ORDERED: CEFEPIME INJECTION 1,000 MG in NS (IVPB) 50 ML IV ONE (17:45)
[2022-02-04 18:39] LABS: BILIRUBIN,URINE NEGATIVE (NEGATIVE); CLARITY,URINE CLEAR; COLOR,URINE YELLOW; GLUCOSE, URINE (UA) 3+ (NEGATIVE); KETONES,URINE NEGATIVE (NEGATIVE); LEUKOCYTE ESTERASE ,URINE 1+ (NEGATIVE); NITRITE,URINE POSITIVE (NEGATIVE); PROTEIN,URINE 2+ (NEGATIVE)
[2022-02-04 18:48] LABS: BACTERIA,URINE LARGE /HPF; SQUAMOUS EPITHELIAL CELL,UR RARE /HPF; WBC,URINE 25-50 /HPF
[2022-02-04 19:39] VITALS: BP 120/76
[2022-02-04] MEDS ORDERED: RT-ALBUTEROL SULF 2.5 MG/3 ML PRE-MIX VIAL INH PRN (20:00)
[2022-02-04] MEDS ORDERED: morphine INJ 4 MG/ML 1 ML (VIAL/SYRINGE) IVP PRN (20:15)
[2022-02-04 20:25] LABS: POTASSIUM 5.6 MMOL/L (3.6-5.0)
[2022-02-04 20:26] LABS: CALCIUM 9.1 MG/DL (8.5-10.1)
[2022-02-04 20:31] LABS: CREATININE SERUM 1.48 MG/DL (0.60-1.30)
--- NOTE | 2022-02-04 20:51 | Tele-ICU Progress Note ---
Progress Note 57M with DM, OHS noncompliant with CPAP, COPD, CHF, afib, PAD, CVA, PVD, RA presented with severe R 1st toe pain. 2 wks s/p callous removal by local manufacturing controller. Per ER eval, "right foot infection (Right great toe), right foot pain (Right great toe), right foot soft tissue tenderness (Right great toe), right foot swelling (Right great toe), right foot other (Patient has circumferential edema with ulceration on the volar aspect of the right great toe and maceration of the skin at the MTP joint and between the first and second toe, no purulence. The toe is very tender to palpation. There seems to be some dark discoloration of the toe as the patient is -[place] it is difficult to evaluate for erythema)". In ED reported to have BPs in the 70s-80s after using the bedside commode. Resolved with IVF. - foot infection: vanco, cefepime initiated in ED. [place], morphine PRN. - DM: sliding scale - hyperkalemia: K 6.1, not treated in ED. Repeated on arrival after IVF, imp roved to 5.6. Will continue IVF and repeat in AM. No JARRET. Creatinine 1.5, recent baseline 1.5 - 3.5 Focused Exam Lactate Level 02/04/22 16:32: Lactic Acid Level 1.43 Height, Weight, BMI Height: 6'2" Weight: 250lbs. 0.0oz. 113.016603gp; 44.00 BMI Method:Estimated FREDERIC TOMPKINS MD Feb 04, 2022 20:51
[2022-02-04] MEDS: VANCOMYCIN 1 GM/NS 250 ML IVPB IV SCH ×2 (22:23)
[2022-02-04] MEDS: NS IV 1000 ML 1,000 ML IV SCH (22:23)
[2022-02-05] MEDS: VANCOMYCIN 1 GM/NS 250 ML IVPB IV SCH ×2 (00:23)
[2022-02-05] MEDS ORDERED: NS (IVPB) 50 ML ONE ×2 (01:40→11:42)
[2022-02-05] MEDS: CEFEPIME 1,000 MG/NS 50 ML IVPB IV SCH ×10 (01:53→23:24)
[2022-02-05] MEDS: HYDROcodone/APAP 5 MG/325 MG (LORTAB) TAB PO PRN ×2 (02:33→09:35)
[2022-02-05 04:58] LABS: BASOPHILS % (AUTO) 1 % (0-10); EOSINOPHILS # (AUTO) 0.1 10^3/uL (0.0-0.3); EOSINOPHILS % (AUTO) 1 % (0-10); HEMATOCRIT 31 % (40-54); HEMOGLOBIN 8.8 g/dL (13.3-17.7); LYMPHOCYTES # (AUTO) 1.1 10^3/uL (1.0-4.0); LYMPHOCYTES % (AUTO) 13 % (12-44); MEAN CORPUSCULAR HEMOGLOBIN 25 pg (25-34); MEAN CORPUSCULAR HGB CONC 29 g/dL (32-36); MEAN CORPUSCULAR VOLUME 85 fL (80-99); MONOCYTES % (AUTO) 12 % (0-12); NEUTROPHILS # (AUTO) 6.2 10^3/uL (1.8-7.8); NEUTROPHILS % (AUTO) 72 % (42-75); PLATELET COUNT 312 10^3/uL (130-400); WHITE BLOOD COUNT 8.6 10^3/uL (4.3-11.0)
[2022-02-05 05:08] LABS: ALBUMIN 2.9 GM/DL (3.2-4.5); POTASSIUM 5.4 MMOL/L (3.6-5.0)
[2022-02-05 05:11] LABS: TOTAL PROTEIN 7.6 GM/DL (6.4-8.2)
[2022-02-05 05:12] LABS: BILIRUBIN,TOTAL 0.3 MG/DL (0.1-1.0)
[2022-02-05 05:14] LABS: CREATININE SERUM 1.35 MG/DL (0.60-1.30); PHOSPHORUS 4.4 MG/DL (2.3-4.7)
[2022-02-05 05:17] LABS: MAGNESIUM 2.3 MG/DL (1.6-2.4)
[2022-02-05] MEDS: inSUlin ASPART (NovoLOG) 1 UNIT/0.01 ML (CHARGE PER UNIT) SC SCH ×4 (05:59→21:37)
--- NOTE | 2022-02-05 09:21 | Tele-ICU Progress Note ---
Subjective Date Seen by a Provider: Feb 05, 2022 Time Seen by a Provider: 07:45 Subjective/Events-last exam This virtual visit was conducted using real time audio/video. Thank you for asking us to see this patient fadmitted for infection of R great toe. Also asthma history, afib w slow VT in addition to multiple other medical problems. Recent events: none PE: Resting comfortably, obese. VSS. O2 sat 100% on 2 LPM. HEENT: No obvious masses, adenopathy or JVD. Chest: clear to auscultation. diminished. CV: RRR S1 S2 No murmur or added sounds. Abd: Non-tender. Bowel sounds Y. : Unremarkable. Ott N. [employer]/psychiatric: L sided weakness. Extremities: Toe swollen, tender. Capillary refill < 3 seconds. Skin: unremarkable. Results: Elevated K 5.4, BG 134, BUN 19, Creat. 1.35. Decreased Hb 8.8. CXR: clear. Available chart/ vitals / labs / images reviewed. Video assessment done using teleICU camera, rest of exam as per RN. A/P: Respiratory insufficiency: Continue present management with PRN O2, albuterol. Critical Care: critically ill patient. Cont. abx, SSI. Discussed with RN RADHA. Asked RN to reach out to eICU if any questions or concerns later. Time spent with patient/coordination of care with other health professionals (mins): 15 Sepsis Event Evaluation Height, Weight, BMI Height: 6'2" Weight: 250lbs. 0.0oz. 113.197893co; 44.76 BMI Method:Estimated Focused Exam Lactate Level 02/04/22 16:32: Lactic Acid Level 1.43 Exam Exam Patient acknowledged, consented, and participated in this virtual visit which was conducted using real time audio/video Vital Signs Date Time Temp Pulse Resp B/P (MAP) Pulse Ox O2 Delivery O2 Flow Rate FiO2 02/05/22 08:00 43 12 144/74 100 Nasal Cannula 2.00 02/05/22 07:35 36.0 02/05/22 07:00 49 02/05/22 07:00 47 17 141/76 100 Nasal Cannula 2.00 02/05/22 06:00 55 16 132/95 99 Nasal Cannula 2.00 02/05/22 05:00 48 16 122/70 100 Nasal Cannula 2.00 02/05/22 04:00 49 20 122/49 100 Nasal Cannula 2.00 02/05/22 04:00 98 Nasal Cannula 2.00 02/05/22 03:00 52 12 135/55 100 Nasal Cannula 2.00 02/05/22 02:00 56 36 146/69 100 Nasal Cannula 2.00 02/05/22 01:00 51 28 158/58 100 Nasal Cannula 2.00 02/05/22 01:00 41 02/05/22 00:00 54 24 141/58 99 Nasal Cannula 2.00 02/04/22 23:59 97 Nasal Cannula 2.00 02/04/22 23:00 54 25 144/73 100 Nasal Cannula 2.00 02/04/22 22:00 54 27 145/58 100 Nasal Cannula 2.00 02/04/22 21:00 53 28 140/60 99 Nasal Cannula 2.00 02/04/22 20:42 60 02/04/22 20:30 54 16 167/76 100 Nasal Cannula 2.00 02/04/22 20:00 60 29 100 Nasal Cannula 2.00 02/04/22 19:45 55 27 153/88 99 Nasal Cannula 2.00 02/04/22 19:39 37.0 60 99 21 02/04/22 19:30 55 32 165/80 100 Nasal Cannula 2.00 02/04/22 19:15 61 14 132/91 100 Nasal Cannula 2.00 02/04/22 19:00 98 Nasal Cannula 2.00 02/04/22 18:49 66 140/57 98 02/04/22 15:50 37.0 60 26 120/76 (91) 99 I & O 02/05/22 07:00 Intake Total 2550 ml Output Total 825 ml Balance 1725 ml Height & Weight Height: 6'2" Weight: 250lbs. 0.0oz. 113.877792to; 44.76 BMI Method:Estimated General Appearance: No Apparent Distress Peripheral Pulses: 1+ Dorsalis Pedis (R), 1+ Left Dors-Pedis (L) (See free text) Gastrointestinal: soft, distended, other (obese) Results Lab Laboratory Tests 02/04/22 16:32 02/04/22 20:03 02/05/22 04:25 Assessment/Plan Assessment/Plan See free text. Critical Care: Critically Ill Patient MARQUEZ MASTERSON MD Feb 05, 2022 09:21
--- NOTE | 2022-02-05 09:34 | History & Physical-Hospitalist ---
History of Present Illness HPI/Chief Complaint Pt is a 57-year-old -Mong[place] male well-known to me from multiple previous admissions who presented to the emergency department toe pain. He states has been going on for a few days though he told the emergency department to started yesterday. Per ER note he had a callus removed by a filler block inserter remover roughly 2 weeks ago. In the emergency department there was concern for osteomyelitis and sepsis so he was admitted for further management. This morning he reports persistent pain but no other complaints. He only p articipates with the exam sporadically. Sometimes he will answer questions and other times he will just stare blankly at me. This is been his baseline in the multiple admissions I have seen him. History is somewhat limited by this. Source: patient Date Seen 02/05/22 Time Seen by a Provider: 09:00 Attending Physician Stanislav Nunez MD PCP Admitting Physician: Ana Cuevas MD Attending Physician: Ana Cuevas MD Referring Physician Date of Admission Feb 04, 2022 at 17:45 Home Medications & Allergies Home Medications Reviewed patient Home Medication Reconciliation performed by pharmacy medication reconciliations polysomnographic technician and/or nursing. Patients Allergies have been reviewed. Allergies Allergies Coded Allergies penicillin V (Unverified Allergy, Unknown, 10/01/08) erythromycin base (Unverified Adverse Reaction, Mild, VOMITING, 03/18/13) Past Gxbfaei-Lenqmu-Ywhdqv Hx Patient Social History Employed/Student: unemployed Tobacco Use?: Yes Tobacco type used: Cigarettes Smoking Status: Current Everyday Smoker Use of E-Cig and/or Vaping dev: No Substance use?: No Alcohol Use?: No Immunizations Up To Date First/Initial COVID19 Vaccinat: 07/16/20 Second COVID19 Vaccination Bryce: 08/05/20 Tetanus Booster (TDap): Unknown Hepatitis A: No Hepatitis B: No Date of Pneumonia Vaccine: Mar 20, 2013 Seasonal Allergies Seasonal Allergies: No Current Status Communicates: Verbally Primary Language: Bhutanese Preferred Spoken Language: Bhutanese Is interpretation needed?: No Past Medical History Surgeries: Cardiac, Dialysis, Orthopedic, Renal, Vascular Surgery Asthma, Pneumonia Currently Using CPAP: No Currently Using BIPAP: No Atrial Fibrillation, Cardiomyopathy, Coronary Artery Disease, High Cholesterol, Hypertension, Peripheral Vascular, Valvular Heart Disease Neuropathy Sexually Transmitted Disease: No HIV/AIDS: No Kidney Stones, Renal Failure Colitis, Gastroesophageal Reflux, Diverticulosis, Polyps, Hiatal Hernia Arthritis, Fibromyalgia, Rheumatoid Arthritis, Chronic Back Pain Diabetes, Insulin dep Glaucoma Loss of Vision: Bilateral Hearing Impairment: Denies Sleep Difficulties, Bipolar, Depression Blood Disorders: Yes (ANEMIA, BLOOD CLOTS ) Past Medical History 1. Diabetes Mellitus 2. Hypertension 3. Seizure Disorder- history of grand mal per pt. report (no records of neurology evaluation) 4. Bi-polar Disorder 5. Depression 6. Anxiety 7. Peripheral Neuropathy 8. History of Acute Renal Failure requiring hemodialysis 2003. 9. History of superficial RUE venous thrombus due to central line placement 10. History of chronic joint pain. 11. Chronic Peripheral Edema 12. Tobaccoism 13. 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 14. Diastolic dysfunction due to uncontrolled hypertension 15. Mild coronary artery disease per cath 16. Hyperlipidemia 17. Non-compliance with follow up and medication use 18. Hx ischemic Right Frontoparietal Infarct in the Right MCA distribution 06/2015 19. Hx of second right MCA stroke in 11/2015 20. Paroxysmal atrial fibrillation Family Medical History Reviewed Nursing Family Hx Cardiovascular disease 19 MOTHER G8 BROTHER Colon cancer 19 MOTHER Completed stroke 19 FATHER Dementia 19 FATHER Diabetes mellitus 19 MOTHER FHx: macular degeneration 19 FATHER Myocardial infarction 19 MOTHER Heart Disease, Diabetes, Hypertension Review of Systems ROS-Unable to Obtain: limited see HPI Constitutional: see HPI Respiratory: No short of breath Gastrointestinal: No abdominal pain Musculoskeletal: see HPI Physical Exam Physical Exam Vital Signs Vital Signs - First Documented 02/04/22 02/04/22 02/04/22 15:50 19:00 19:39 Temp 37.0 Pulse 60 Resp 26 B/P (MAP) 120/76 (91) Pulse Ox 99 O2 Delivery Nasal Cannula O2 Flow Rate 2.00 FiO2 21 Capillary Refill : Height, Weight, BMI Height: 6'2" Weight: 250lbs. 0.0oz. [id number]; 44.76 BMI Method:Estimated General Appearance: No Apparent Distress, Chronically ill, Obese HEENT: PERRL/EOMI, Moist Mucous Membranes; No Scleral Icterus (L), No Scleral Icterus (R) Neck: Normal Inspection, Supple Respiratory: Lungs Clear, No Accessory Muscle Use, No Respiratory Distress Cardiovascular: Regular Rate, Rhythm, No JVD, No Murmur Gastrointestinal: Normal Bowel Sounds, Non Tender, Soft Extremity: Other (right great toe with sloughing of skin and edema, erythema not noticeable) Neurologic/Psychiatric: Alert, Oriented x3 (participates in exam sporadically but seems oriented to person, place, and time when willing to answer questions); No Aphasia, No Facial Droop Skin: Normal Color Results Results/Procedures Labs Laboratory Tests 02/04/22 16:32 02/04/22 20:03 02/05/22 04:25 Patient resulted labs reviewed. Imaging: Reviewed Imaging Report [facility] [place], [place] NAME: SERG KEBEDE [facility] REC#: [id number] PT STATUS: REG ER : 1965 PHYSICIAN: ADILENE POLO MD ADMIT DATE: 02/04/22/ER Signed Date of Exam:02/04/22 CHEST 1 VIEW, AP/PA ONLY Indication: Shortness of breath Portable chest 4:10 PM Heart size and pulmonary vascularity are normal. Lungs are clear. There are no effusions or pneumothoraces. IMPRESSION: No acute abnormalities in the chest Dictated by: Dictated on workstation # [id number] Dict: 02/04/22 162 Trans: 02/04/22 1624 [facility] [id number] Interpreted by: MEMO BOWDEN MD Electronically signed by: MEMO BOWDEN MD 02/04/22 1624 [facility] [place], [place] NAME: SERG KEBEDE [facility] REC#: [id number] PT STATUS: REG ER : 1965 PHYSICIAN: ADILENE POLO MD ADMIT DATE: 02/04/22/ER Signed Date of Exam:02/04/22 FOOT, RIGHT, 3 VIEW INDICATION: Right foot pain AP, oblique, lateral views of the right foot are obtained. No fracture or acute bony abnormality seen. There is posterior calcaneal spurring. There is degenerative changes throughout the tarsometatarsal joints. There are diffuse degenerative changes throughout the interphalangeal joints. No acute bony abnormality is detected. IMPRESSION: Multifocal degenerative changes in the right foot with no acute appearing abnormality. Dictated by: Dictated on workstation # [id number] Dict: 02/04/22 1625 Trans: 02/04/22 1639 [facility] [id number] Interpreted by: EDGAR BARILLAS MD Electronically signed by: EDGAR BARILLAS MD 02/04/22 1639 Assessment/Plan Admission Diagnosis Osteomyelitis Admission Status: Inpatient Order (span 2 midnights) Reason for Inpatient Admission: see below Assessment and Plan Osteomyelitis Right great toe appearance worrisome for osteomyelitis Discussed with Dr De- plan for MRI Monday when available and may need amputation Discussed with Dr Kurtz due to diminished pulses, arterial dopplers ordered- appreciate help Continue IV abx Await cultures Hypotension Transient hypotension yesterday Happened while up on commode so potentially vagal Now resolved CKD stage 3a Hyperkalemia Continue IV fluids Monitor UOP K was elevated, down to 5.4 with hydration T2DM Sliding scale insulin for now due to well controlled BS without home Levemir Resume home Jardiance HTN AFib Bipolar disorder BPH Continue home meds as able Morbid obesity Clinically significant, no acute management needs DVT ppx: Already on eliquis Diagnosis/Problems Diagnosis/Problems (1) COPD (chronic obstructive pulmonary disease) (2) Tobacco abuse (3) CKD (chronic kidney disease) (4) Chronic respiratory failure (5) Obesity hypoventilation syndrome (6) Insulin dependent diabetes mellitus (7) Anemia in CKD (chronic kidney disease) (8) Hyperkalemia (9) Atrial fibrillation (10) Seizure disorder Status: Chronic (11) Hypertension Status: Chronic (12) Osteomyelitis of great toe of right foot Status: Acute (13) T2DM (type 2 diabetes mellitus) Status: Acute (14) Morbid obesity Status: Chronic (15) CHF (congestive heart failure) Status: Acute (16) Bilateral lower extremity edema Status: Acute (17) Chronic pain Status: Acute (18) UTI (urinary tract infection) Status: Acute ANA CUEVAS MD Feb 05, 2022 09:34
--- NOTE | 2022-02-05 11:36 | Physical Therapy Evaluation ---
PT Evaluation-General Medical Diagnosis Admission Date Feb 04, 2022 at 17:45 Medical Diagnosis: Osteomyelitis right great toe Onset Date: Feb 04, 2022 Therapy Diagnosis Therapy Diagnosis: impaired mobility Height/Weight Height (Feet): 6 Height (Inches): 2 Weight (Pounds): 250 Weight (Ounces): 0.0 Precautions Precautions/Isolations: Fall Prevention, Standard Precautions Referral Physician: Raisa Cuevas Reason for Referral: Evaluation/Treatment Medical History Pertinent Medical History: Arthritis, CAD, CVA, DM, Diverticulitis, GERD, HTN, MD, Neuropathy, PVD, Rheumatoid Arthritis, Smoking Additional Medical History chronic back pain Current History Pain in the right foot. Admitted to ER from [facility] due to foot pain and foul odor from wound. Reviewed History: Yes Social History Home: Long Term Pt lives at [facility]. He does some walking with a FWW around the facility. Pt uses both w/c and walker for mobility. Prior Prior Level of Function SCALE: Activities may be completed with or without assistive devices. 4-Cygfbkpyyw-jglhzby completes the activity by him/herself with no assistance from a helper. 5-Set-up or Clean-up Assistance-helper sets up or cleans up; patient completes activity. [place] assists only prior to or following the activity. 4-Supervision or Touching Assistance-helper provides verbal cues and/or touching/steadying and/or contact guard assistance as patient completes activity. Assistance may be provided throughout the activity or intermittently. 3-Partial/Moderate Assistance-helper does LESS THAN HALF the effort. [place] lifts, holds or supports trunk or limbs, but provides less than half the effort. 2-Substantial/Maximal Assistance-helper does MORE THAN HALF the effort. [place] lifts or holds trunk or limbs and provides more than half the effort. 2-Gjjcumwvd-fsuuqv does ALL the effort. Patient does none of the effort to complete the activity. Or, the assistance of 2 or more helpers is required for the patient to complete the activity. If activity was not attempted, code reason: 7-Patient Refused. 9-Not Applicable-not attempted and the patient did not perform the activity before the current illness, exacerbation or injury. 10-Not Attempted due to Environmental Limitations-(lack of equipment, weather restraints, etc.). 88-Not Attempted due to Medical Conditions or Safety Concerns. Bed Mobility: 6 Transfers (B,C,W/C): 4 Gait: 4 Indoor Mobility (Ambulation): Needed Some Help PT Evaluation-Current Subjective Pt reports pain 5/10 right foot. Pt reports he does some walking with assist of a FWW. Objective Patient Orientation: Person, Place, Situation Attachments: Oxygen, IV ROM/Strength ROM Lower Extremities WFL Strength Lower Extremities WFL Integumentary/Posture Bowel Incontinence: Yes Bladder Incontinence: Yes Sensory Vision: Wears Glasses Hearing: Functional Sensation Right Upper Extremit: Impaired Sensation Left Upper Extremity: Impaired Sensation Right Lower Extremit: Impaired Sensation Left Lower Extremity: Impaired Transfers Roll Left to Right (QC): 4 Sit to Lying (QC): 4 Lying to Sitting/Side of Bed(Q: 3 Sit to Stand (QC): 3 Gait Does the Patient Walk?: Yes Mode of Locomotion: Both Anticipated Mode of Locomotion: Both Gait Assistive Device: FWW Comments/Gait Description Did not attempt gait secondary to patient very lethargic, c/o foot pain, and bowel incontinence. LE strength indicates patient will be able to ambulate s hort distances when pain controlled and level of alertness allows for safety. Balance Sitting Static: Fair Sitting Dynamic: Fair Standing Static: Fair Standing Dynamic: Poor Assessment/Needs Pt will benefit from PT to address mobility for transfers and short distance ambulation. Rehab Potential: Fair PT Asphalt Roller Person Goals Asphalt Roller Person Goals PT Asphalt Roller Person Goals Time Frame: Feb 11, 2022 Roll Left & Right (QC): 6 Sit to Lying (QC): 6 Lying-Sitting on Side/Bed(QC): 6 Sit to Stand (QC): 6 Walk 10 feet (QC): 4 PT Plan Problem List Problem List: Activity Tolerance, Functional Strength, Gait, Transfer, Bed Mobility Treatment/Plan Treatment Plan: Continue Plan of Care Treatment Plan: Bed Mobility, Functional Activity Pancho, Functional Strength, Gait Treatment Duration: Feb 11, 2022 Frequency: 6 times per week Estimated Hrs Per Day: .25 hour per day Patient and/or Family Agrees t: Yes Discharge Recommendations Target Placement skilled care as prior to admission Time/GCodes Time In: 1115 Time Out: 1140 Total Billed Treatment Time: 25 Total Billed Treatment visit, evaluation high complexity 25 min PRINCESS ERNST PT Feb 05, 2022 11:36
[2022-02-05] MEDS: NS IV 1000 ML 1,000 ML IV SCH ×2 (11:41→14:15)
[2022-02-05] MEDS ORDERED: GLUC1KIT IJ (12:08)
[2022-02-05] MEDS ORDERED: POTA-179 PO (12:08)
[2022-02-05] MEDS ORDERED: DEXT38GE12 PO (12:08)
--- NOTE | 2022-02-05 12:09 | Consultation - Surgery ---
History of Present Illness History of Present Illness Patient Consulted On(ivet/time) 02/05/22 12:04 Date Seen by Provider: Feb 05, 2022 Time Seen by Provider: 12:04 History of Present Illness Consult requested by Dr. Zeng for right great toe possible osteomyelitis. Patient is a 57-year-old male who states that he is unsure exactly how long he has been having problems with his right great toe. He states is probably been a few days. He has had a little bit of drainage from the area. He has tenderness to the right foot. There is some swelling to the right foot he states. Nothing seems to make it better or worse. He did have a callus which was opened and debrided a little bit apparently couple weeks ago. Patient not wanting to lose his big toe he states. He denies any nausea vomiting fever sweats chills shortness of breath or chest pain at this time. He had an x-ray that did not demonstrate any changes of osteomyelitis but did have multifocal changes of osteoarthritis. Allergies and Home Medications Allergies Coded Allergies: penicillin V (Unverified Allergy, Unknown, 10/01/08) erythromycin base (Unverified Adverse Reaction, Mild, VOMITING, 03/18/13) Patient Home Medication List Home Medication List Reviewed: Yes Acetaminophen (Tylenol) 325 Mg Tablet, 650 MG PO Q6H PRN for PAIN-MILD (1-4), (Reported) Entered as Reported by: KALEN ALBERTO on 09/17/211410 Albuterol Sulfate (Albuterol Sulfate) 2.5 Mg/0.5 Ml Vial.neb, 2.5 MG INH Q8H PRN for SHORTNESS OF BREATH, (Reported) Entered as Reported by: KALEN ALBERTO on 09/17/211410 Amlodipine Besylate (Amlodipine Besylate) 10 Mg Tablet, 10 MG PO DAILY, (Reported) Entered as Reported by: KALEN ALBERTO on 09/17/211410 Apixaban (Eliquis) 5 Mg Tablet, 5 MG PO BID, (Reported) Entered as Reported by: JIM GRADY on 12/03/15 100 Aripiprazole (Aripiprazole) 10 Mg Tablet, 10 MG PO DAILY, (Reported) Entered as Reported by: JIM GRADY on 12/03/15 100 Aspirin (Aspirin EC) 81 Mg Tablet., 81 MG PO DAILY, (Reported) Entered as Reported by: KALEN ALBERTO on 09/17/21 1411 Brimonidine Tartrate (Alphagan P) 5 Ml Drops, 1 DROP OU BID, (Reported) Entered as Reported by: KERA FELIPE on 02/22/21 1415 Budesonide/Formoterol Fumarate (Symbicort 160-4.5 Mcg Inhaler) 160 Mcg-4.5 Mcg/Actuation Hfa.aer.ad, 2 PUFF IH BID, (Reported) Entered as Reported by: RASTA SANCHES on 11/22/21 1202 Calcium Carbonate (Calcium Carbonate) 500 Mg Tablet, 500 MG PO Q6H PRN for HEARTBURN, (Reported) Entered as Reported by: KALEN ALBERTO on 09/17/21 1411 Cefdinir (Cefdinir) 300 Mg Capsule, 300 MG PO BID Prescribed by: GUALBERTO ROJAS on 12/16/21 1209 Divalproex Sodium (Divalproex Sodium) 250 Mg Tablet., 250 MG PO TID, (Reported) Entered as Reported by: JIM GRADY on 12/03/15 1005 Docusate Sodium (Docusate Sodium) 100 Mg Capsule, 100 MG PO DAILY PRN for CONSTIPATION-1ST LINE, (Reported) Entered as Reported by: KALEN ALBERTO on 09/17/21 1411 Doxazosin Mesylate (Doxazosin Mesylate) 2 Mg Tablet, 2 MG PO HS, (Reported) Entered as Reported by: SHADY CHONG on 12/01/21 1051 Duloxetine HCl (Duloxetine HCl) 20 Mg Capsule., 40 MG PO DAILY, (Reported) Entered as Reported by: SHADY CHONG on 12/15/21 1049 Empagliflozin (Jardiance) 25 Mg Tablet, 25 MG PO DAILY, (Reported) Entered as Reported by: OSMANY QUEZADA on 11/20/21 1544 Fluconazole (Fluconazole) 150 Mg Tablet, 150 MG PO DAILY, (Reported) Entered as Reported by: SHADY CHONG on 12/15/21 1049 Furosemide (Furosemide) 20 Mg Tablet, 60 MG PO DAILY, (Reported) Entered as Reported by: KERA FELIPE on 02/22/21 1415 Gabapentin (Gabapentin) 400 Mg Capsule, 400 MG PO HS, (Reported) Entered as Reported by: RASTA SANCHES on 11/22/21 1156 Gabapentin (Gabapentin) 800 Mg Tablet, 800 MG PO HS, (Reported) Entered as Reported by: SHADY CHONG on 12/15/21 104 Gabapentin (Gabapentin) 100 Mg Capsule, 200 MG PO TID, (Reported) Entered as Reported by: SHADY CHONG on 12/15/21 1049 Glucagon HCl (Glucagon Emergency Kit) 1 Mg Vial, 1 MG IJ UD PRN for HYPOGLYCEMIA, (Reported) Entered as Reported by: SHADY CHONG on 12/15/21 104 Guaifenesin/Dextromethorphan (Guaifenesin-Dm 100-10 mg/5 ml) 5 Ml Liquid, 10 ML PO Q4H PRN for COUGH, (Reported) Entered as Reported by: KALEN ALBERTO on 09/17/21 141 Insulin Detemir (Levemir Flextouch) 100 Unit/Ml (3 Ml) Insuln.pen, 25 UNIT SQ BID, (Reported) Entered as Reported by: SHADY CHONG on 12/01/21 105 Insulin Lispro (Humalog Kwikpen) 200 Unit/Ml (3 Ml) Insuln.pen, 20 UNIT SQ AC, (Reported) Entered as Reported by: SHADY CHONG on 12/01/21 105 L.acidoph & Paracasei,B.lactis (Probiotic) 10 Billion Cell Capsule, 1 EACH PO HS, (Reported) Entered as Reported by: SHADY CHONG on 12/15/21 104 Loperamide HCl (Loperamide) 2 Mg Tablet, 2 MG PO Q1H PRN for DIARRHEA, (Reported) Entered as Reported by: KALEN ALBERTO on 09/17/21 141 Meclizine HCl (Meclizine HCl) 25 Mg Tablet, 25 MG PO DAILY PRN for VERTIGO, (Reported) Entered as Reported by: KALEN ALBERTO on 09/17/21 141 Melatonin (Melatonin) 3 Mg Tablet, 3 MG PO HS, (Reported) Entered as Reported by: KALEN ALBERTO on 09/17/21 141 Metoprolol Tartrate (Metoprolol Tartrate) 100 Mg Tablet, 100 MG PO BID, (Reported) Entered as Reported by: KALEN ALBERTO on 09/17/21 1411 Ondansetron (Ondansetron Odt) 4 Mg Tab.rapdis, 4 MG PO Q8H PRN for NAUSEA/VOMITING-1ST LINE, (Reported) Entered as Reported by: KALEN ALBERTO on 09/17/21 1411 Ped Multivit #43/Iron Fumarate (Flintstones Complete Chew Tab) 18 Mg Iron Tab.chew, 18 MG PO DAILY, (Reported) Entered as Reported by: RASTA SANCHES on 11/22/21 1155 Polyethylene Glycol 3350 (Miralax) 17 Gm Powd.pack, 17 GM PO Q12H PRN for CONSTIPATION-2ND LINE, (Reported) Entered as Reported by: KALEN ALBERTO on 09/17/21 1411 Rosuvastatin Calcium (Rosuvastatin Calcium) 40 Mg Tablet, 40 MG PO DAILY, (Reported) Entered as Reported by: KERA FELIPE on 02/22/21 1415 Tamsulosin HCl (Flomax) 0.4 Mg Cap, 0.4 MG PO DAILY, (Reported) Entered as Reported by: KERA FELIPE on 02/22/21 141 Tiotropium [place] (Spiriva Respimat 1.25MCG/ACTUATION) 4 Gm Mist.inhal, 2 PUFF IH DAILY, (Reported) Entered as Reported by: KERA FELIPE on 02/22/21 1415 Tramadol HCl (Tramadol HCl) 50 Mg Tablet, 50 MG PO Q8HR PRN for PAIN-MODERATE (5-7), (Reported) Entered as Reported by: RENETTA GAUTHIER on 11/30/21 1657 Past Lnnahcj-Pufgma-Ilnfhf Hx Patient Social History Smoking Status: Current Everyday Smoker Type Used: Cigarettes 2nd Hand Smoke Exposure: No Recent Hopitalizations: No Alcohol Use?: No Immunizations Up To Date Date of Pneumonia Vaccine: Mar 20, 2013 Seasonal Allergies Seasonal Allergies: No Surgeries History of Surgeries: Yes Surgeries: Cardiac, Dialysis, Orthopedic, Renal, Vascular Surgery Respiratory History of Respiratory Disorde: Yes (COMMUNITY ACQUIRED PNEUMONIA) Respiratory Disorders: Asthma, Pneumonia Cardiovascular History of Cardiac Disorders: Yes (PAD) Cardiac Disorders: Atrial Fibrillation, Cardiomyopathy, Coronary Artery Disease, High Cholesterol, Hypertension, Peripheral Vascular, Valvular Heart Disease Neurological History of Neurological Disord: Yes (BRAIN INJURY CAUSES EMOTIONS TO CHANGE . LEFT SIDE WEAKNESS) Neurological Disorders: Neuropathy Reproductive System Hx Reproductive Disorders: No Sexually Transmitted Disease: No HIV/AIDS: No Genitourinary Genitourinary Disorders: Kidney Stones, Renal Failure Gastrointestinal History of Gastrointestinal Di: Yes Gastrointestinal Disorders: Colitis, Gastroesophageal Reflux, Diverticulosis, Polyps, Hiatal Hernia Musculoskeletal History of Musculoskeletal Dis: Yes (WEAKNESS IN LEGS FROM STROKE ) Musculoskeletal Disorders: Arthritis, Fibromyalgia, Rheumatoid Arthritis, Chronic Back Pain Endocrine History of Endocrine Disorders: Yes Endocrine Disorders: Diabetes, Insulin dep HEENT HEENT Disorders: Glaucoma Loss of Vision: Bilateral Hearing Impairment: Denies Cancer History of Cancer: No Psychosocial History of Psychiatric Problem: Yes Behavioral Health Disorders: Sleep Difficulties, Bipolar, Depression Integumentary History of Skin or Integumenta: No Blood Transfusions History of Blood Disorders: Yes (ANEMIA, BLOOD CLOTS ) Reviewed Nursing Assessment Reviewed/Agree w Nursing PMH: Yes Family Medical History Significant Family History: Heart Disease, Diabetes, Hypertension Family Medial History: Cardiovascular disease 19 MOTHER G8 BROTHER Colon cancer 19 MOTHER Completed stroke 19 FATHER Dementia 19 FATHER Diabetes mellitus 19 MOTHER FHx: macular degeneration 19 FATHER Myocardial infarction 19 MOTHER Review of Systems-General Constitutional: No chills, No diaphoresis EENTM: No blurred vision, No double vision Respiratory: No dyspnea on exertion, No short of breath Cardiovascular: No chest pain, No palpitations Gastrointestinal: No nausea, No vomiting Genitourinary: No decreased output, No discharge Musculoskeletal: No gout, No joint pain Skin: No change in color, No change in hair/nails Psychiatric/Neurological: Denies Anxiety, Denies Depressed, Denies Emotional Problems All Other Systems Reviewed Negative Unless Noted: Yes (Negative excepted noted.) Physical Exam-General Problems Physical Exam Vital Signs Vital Signs - First Documented 02/04/22 02/04/22 02/04/22 15:50 19:00 19:39 Temp 37.0 Pulse 60 Resp 26 B/P (MAP) 120/76 (91) Pulse Ox 99 O2 Delivery Nasal Cannula O2 Flow Rate 2.00 FiO2 21 Capillary Refill : General Appearance: no apparent distress, obese HEENT: PERRL/EOMI, normal ENT inspection Neck: non-tender, supple Respiratory: chest non-tender, no respiratory distress, no accessory muscle use Cardiovascular: regular rate, rhythm, no JVD Gastrointestinal: non tender, soft Rectal: deferred Back: no CVA tenderness, no vertebral tenderness Extremities: other (Right great toe swelling a little bit of purulent appearing drainage. Little swelling of the distal right foot slightly foul smell) Neurologic/Psychiatric: alert, normal mood/affect, oriented x 3 Skin: other (Changes of the right foot/great toe as noted above) Lymphatic: no adenopathy Data Review Labs Laboratory Tests 02/04/22 16:14: Glucometer 133H 02/04/22 16:32: White Blood Count 10.5, Red Blood Count 3.88L, Hemoglobin 9.7L, Hematocrit 33L, Mean Corpuscular Volume 85, Mean Corpuscular Hemoglobin 25, Mean Corpuscular Hemoglobin Concent 29L, Red Cell Distribution Width 20.7H, Platelet Count 350, Mean Platelet Volume 10.7, Immature Granulocyte % (Auto) 1, Neutrophils (%) (Auto) 74, Lymphocytes (%) (Auto) 12, Monocytes (%) (Auto) 11, Eosinophils (%) (Auto) 2, Basophils (%) (Auto) 1, Neutrophils # (Auto) 7.8, Lymphocytes # (Auto) 1.2, Monocytes # (Auto) 1.1H, Eosinophils # (Auto) 0.2, Basophils # (Auto) 0.1, Immature Granulocyte # (Auto) 0.1, Erythrocyte Sedimentation Rate > 140H, Prothrombin Time 15.1H, INR Comment 1.1, Activated Partial Thromboplast Time 25, Sodium Level 140, Potassium Level 6.1H, Chloride Level 107, Carbon Dioxide Level 22, Anion Gap 11, Blood Urea Nitrogen 22H, Creatinine 1.54H, Estimat Glomerular Filtration Rate 52, BUN/Creatinine Ratio 14, Glucose Level 152H, Lactic Acid Level 1.43, Calcium Level 9.4, Corrected Calcium 10.1, Total Bilirubin 0.2, Aspartate Amino Transf (AST/SGOT) 9, Alanine Aminotransferase (ALT/SGPT) 9, Alkaline Phosphatase 68, C-Reactive Protein High Sensitivity 4.37H, Total Protein 8.5H, Albumin 3.1L 02/04/22 18:33: Urine Color YELLOW, Urine Clarity CLEAR, Urine pH 6.0, Urine Specific [place] 1.025H, Urine Protein 2+H, Urine Glucose (UA) 3+H, Urine Ketones NEGATIVE, Urine Nitrite POSITIVEH, Urine Bilirubin NEGATIVE, Urine Urobilinogen 0.2, Urine Leukocyte Esterase 1+H, Urine RBC (Auto) 1+H, Urine RBC 5-10H, Urine WBC 25-50H, Urine Squamous Epithelial Cells RARE, Urine Crystals NONE, Urine Bacteria LARGEH , Urine Casts NONE, Urine Mucus NEGATIVE, Urine Culture Indicated YES 02/04/22 20:03: Sodium Level 141, Potassium Level 5.6H, Chloride Level 109H, Carbon Dioxide Level 22, Anion Gap 10, Blood Urea Nitrogen 21H, Creatinine 1.48H, Estimat Glomerular Filtration Rate 55, BUN/Creatinine Ratio 14, Glucose Level 141H, Calcium Level 9.1 02/05/22 04:25: White Blood Count 8.6, Red Blood Count 3.58L, Hemoglobin 8.8L, Hematocrit 31L, Mean Corpuscular Volume 85, Mean Corpuscular Hemoglobin 25, Mean Corpuscular Hemoglobin Concent 29L, Red Cell Distribution Width 20.8H, Platelet Count 312, Mean Platelet Volume 11.0, Immature Granulocyte % (Auto) 1, Neutrophils (%) (Auto) 72, Lymphocytes (%) (Auto) 13, Monocytes (%) (Auto) 12, Eosinophils (%) (Auto) 1, Basophils (%) (Auto) 1, Neutrophils # (Auto) 6.2, Lymphocytes # (Auto) 1.1, Monocytes # (Auto) 1.0, Eosinophils # (Auto) 0.1, Basophils # (Auto) 0.0, Immature Granulocyte # (Auto) 0.1, Sodium Level 140, Potassium Level 5.4H, Chloride Level 112H, Carbon Dioxide Level 19L, Anion Gap 9, Blood Urea Nitrogen 19H, Creatinine 1.35H, Estimat Glomerular Filtration Rate 61, BUN/Creatinine Ratio 14, Glucose Level 134H, Calcium Level 9.0, Corrected Calcium 9.9, Phosphorus Level 4.4, Magnesium Level 2.3, Total Bilirubin 0.3, Aspartate Amino Transf (AST/SGOT) 7, Alanine Aminotransferase (ALT/SGPT) 7, Alkaline Phosphatase 56, Total Protein 7.6, Albumin 2.9L 02/05/22 10:39: Glucometer 184H Assessment/Plan Assessment/Plan Assessment/Plan Right foot cellulitis finger right great toe with possible osteomyelitis. Discussed amputation of the right great toe due to the infection which patient does not want to do this yet. We discussed doing a MRI to further evaluate. We will continue on antibiotics. IV fluids. We will continue to keep the area clean and dry. We will follow. BIJU MACKENZIE DO Feb 05, 2022 12:09
[2022-02-05] MEDS: VANCOMYCIN 1,750 MG/NS 500 ML IVPB IV SCH ×2 (12:27)
[2022-02-05] MEDS ORDERED: NON-FORMULARY MEDICATION 1 EA EA (Calcium Carbonate 500 MG) PO PRN (12:30)
[2022-02-05] MEDS ORDERED: ONDANSETRON 4 MG (ZOFRAN) ORAL DISSOLVE TAB PO PRN (12:30)
[2022-02-05] MEDS ORDERED: polyethylene glycoL POWDER 17 GM (MIRALAX) PACK PO PRN (12:30)
[2022-02-05] MEDS ORDERED: DOCUSATE SODIUM 100 MG (COLACE) CAP PO PRN (12:30)
[2022-02-05] MEDS ORDERED: CALCIUM CARBONATE 500 MG (TUMS) TAB.CHEW PO PRN (13:15)
[2022-02-05] MEDS: GABAPENTIN 100 MG (NEURONTIN) CAP PO SCH ×2 (14:05→21:36)
[2022-02-05] MEDS: DIVALPROEX 250 MG DELAYED RELEASE (DEPAKOTE) TAB PO SCH ×2 (14:05→21:36)
[2022-02-05 16:00] VITALS: BP 187/84
--- NOTE | 2022-02-05 18:00 | Diagnostic Imaging Report ---
PROCEDURE: US Bilateral lower extremity arterial. TECHNIQUE: Multiple real-time grayscale images are obtained through both lower extremity arterial systems with color Doppler imaging and color Doppler spectral analysis. INDICATION: Osteomyelitis about the great toe. FINDINGS: There is velocity elevation demonstrated within the right common femoral artery with velocities measured at up to a 202 cm/s. There are monophasic waveforms demonstrated from the common femoral artery to the level of the ankle. Note is also made of marked velocity elevations throughout the superficial femoral artery measuring up to 423 cm/s. There is no finding of arterial thrombosis. Note is made of monophasic flow within the superficial femoral artery, the popliteal artery, the posterior tibial artery and the dorsalis pedis. On the left, there is triphasic flow demonstrated within the left common femoral artery, the superficial femoral artery and the popliteal artery. There is biphasic flow within the posterior tibial and monophasic flow within the dorsalis pedis. No velocity change is evident on the left. IMPRESSION: 1. Elevated velocities are demonstrated throughout the right thigh with marked velocity elevation within the mid SFA. This may relate to a regional high-grade stenosis but there is monophasic flow both above and below this level. There is patent flow to the level of the right ankle without evidence of arterial thrombosis. A CTA with runoffs could be considered to evaluate for focal high-grade mid SFA stenosis. This may however simply relate to advanced small vessel peripheral arterial disease. 2. On the left, there are triphasic flow throughout the thigh with biphasic and monophasic flow within the left calf. Dictated by: Dictated on workstation # [id number]
[2022-02-05] MEDS: RT--FLUTICASONE/SALMETEROL 232-14 (AIRDUO RespiCLICK) IH SCH (18:27)
[2022-02-05 19:15] VITALS: BP 158/70
[2022-02-05] MEDS: BRIMONIDINE 0.2% (ALPHAGAN) OPHTH SOLN 5 ML BTL OU SCH ×2 (21:00→21:30)
[2022-02-05] MEDS ORDERED: NON-FORMULARY MEDICATION 1 EA EA (Budesonide/Formoterol Fumarate (Symbicort 160-4.5 Mcg In IH SCH (21:00)
[2022-02-05] MEDS ORDERED: NON-FORMULARY MEDICATION 1 EA EA (Brimonidine Tartrate (Alphagan P) 1 DROP) OU SCH (21:00)
[2022-02-05] MEDS ORDERED: NON-FORMULARY MEDICATION 1 EA EA (Metoprolol Tartrate 100 MG) PO SCH (21:00)
[2022-02-05] MEDS: MELATONIN 3 MG TABLET PO SCH (21:36)
[2022-02-05] MEDS: doxAzosin 2 MG (CARDURA) TAB PO SCH (21:36)
[2022-02-05] MEDS: APIXABAN 5 MG (ELIQUIS) TABLET PO SCH (21:37)
[2022-02-05] MEDS: meTOprolol TARTRATE 50 MG (LOPRESSOR) TAB PO SCH (21:37)
[2022-02-05 23:53] VITALS: BP 115/57
[2022-02-06] VITALS (13 sets, daily range): BP systolic 112–171; BP diastolic 54–95
[2022-02-06] MEDS: NS IV 1000 ML 1,000 ML IV SCH ×2 (05:25→14:38)
[2022-02-06] MEDS: CEFEPIME 1,000 MG/NS 50 ML IVPB IV SCH ×6 (05:25→18:29)
[2022-02-06] MEDS: VANCOMYCIN 1,750 MG/NS 500 ML IVPB IV SCH ×2 (06:05)
[2022-02-06] MEDS: inSUlin ASPART (NovoLOG) 1 UNIT/0.01 ML (CHARGE PER UNIT) SC SCH ×4 (06:06→19:54)
[2022-02-06 07:17] LABS: BASOPHILS # (AUTO) 0.1 10^3/uL (0.0-0.1); BASOPHILS % (AUTO) 1 % (0-10); EOSINOPHILS # (AUTO) 0.2 10^3/uL (0.0-0.3); EOSINOPHILS % (AUTO) 2 % (0-10); HEMATOCRIT 30 % (40-54); HEMOGLOBIN 8.8 g/dL (13.3-17.7); LYMPHOCYTES % (AUTO) 12 % (12-44); MEAN CORPUSCULAR HEMOGLOBIN 25 pg (25-34); MEAN CORPUSCULAR HGB CONC 29 g/dL (32-36); MEAN CORPUSCULAR VOLUME 86 fL (80-99); MEAN PLATELET VOLUME 11.6 fL (9.0-12.2); MONOCYTES % (AUTO) 11 % (0-12); NEUTROPHILS # (AUTO) 6.3 10^3/uL (1.8-7.8); NEUTROPHILS % (AUTO) 73 % (42-75); PLATELET COUNT 308 10^3/uL (130-400); WHITE BLOOD COUNT 8.6 10^3/uL (4.3-11.0)
[2022-02-06 07:25] LABS: ALBUMIN 2.8 GM/DL (3.2-4.5); POTASSIUM 6.1 MMOL/L (3.6-5.0)
[2022-02-06] MEDS: UMECLIDINIUM BROMIDE (INCRUSE ELLIPTA) 7'S IH SCH (07:25)
[2022-02-06] MEDS: RT--FLUTICASONE/SALMETEROL 232-14 (AIRDUO RespiCLICK) IH SCH ×2 (07:25→18:38)
[2022-02-06 07:26] LABS: CALCIUM 8.7 MG/DL (8.5-10.1)
[2022-02-06 07:28] LABS: TOTAL PROTEIN 7.9 GM/DL (6.4-8.2)
[2022-02-06 07:30] LABS: BILIRUBIN,TOTAL 0.4 MG/DL (0.1-1.0)
[2022-02-06 07:31] LABS: PHOSPHORUS 4.2 MG/DL (2.3-4.7)
[2022-02-06 07:32] LABS: CREATININE SERUM 1.32 MG/DL (0.60-1.30)
[2022-02-06 07:34] LABS: MAGNESIUM 2.2 MG/DL (1.6-2.4)
[2022-02-06] MEDS ORDERED: NON-FORMULARY MEDICATION 1 EA EA (Empagliflozin (Jardiance) 25 MG) PO SCH (09:00)
[2022-02-06] MEDS ORDERED: NON-FORMULARY MEDICATION 1 EA EA (Rosuvastatin Calcium 40 MG) PO SCH (09:00)
[2022-02-06] MEDS: FUROSEMIDE 20 MG (LASIX) TAB PO SCH (09:13)
[2022-02-06] MEDS: amLODIPine 10 MG (NORVASC) TAB PO SCH (09:13)
[2022-02-06] MEDS: APIXABAN 5 MG (ELIQUIS) TABLET PO SCH ×2 (09:13→20:21)
[2022-02-06] MEDS: EMPAGLIFLOZIN 10 MG TABLET (JARDIANCE) PO SCH (09:13)
[2022-02-06] MEDS: ASPIRIN E.C. 81 MG (ECOTRIN) TAB PO SCH (09:13)
[2022-02-06] MEDS: meTOprolol TARTRATE 50 MG (LOPRESSOR) TAB PO SCH ×2 (09:13→20:23)
[2022-02-06] MEDS: GABAPENTIN 100 MG (NEURONTIN) CAP PO SCH ×3 (09:13→20:21)
[2022-02-06] MEDS: ROSUVASTATIN 20 MG (CRESTOR) TABLET PO SCH (09:14)
[2022-02-06] MEDS: DIVALPROEX 250 MG DELAYED RELEASE (DEPAKOTE) TAB PO SCH ×3 (09:14→20:22)
[2022-02-06] MEDS: BRIMONIDINE 0.2% (ALPHAGAN) OPHTH SOLN 5 ML BTL OU SCH ×2 (09:19→20:22)
[2022-02-06] MEDS: DULoxetine 20 MG (CYMBALTA) CAP PO SCH (09:19)
[2022-02-06] MEDS ORDERED: CALC GLUC 1 GM/100 ML IVPB 100 ML IV NR (11:15)
[2022-02-06] MEDS ORDERED: RT-ALBUTEROL SULF 2.5 MG/3 ML PRE-MIX VIAL INH NR ×2 (11:15)
[2022-02-06] MEDS ORDERED: SODIUM POLYSTYRENE POWDER 15 GM BOTTLE PO NR (11:15)
--- NOTE | 2022-02-06 11:18 | Progress Note - Hospitalist ---
Subjective HPI/CC On Admission Date Seen by Provider: Feb 06, 2022 Pt is a 57-year-old -[place] male well-known to me from multiple previous admissions who presented to the emergency department toe pain. He states has been going on for a few days though he told the emergency department to started yesterday. Per ER note he had a callus removed by a tenter feeder roughly 2 weeks ago. In the emergency department there was concern for osteomyelitis and sepsis so he was admitted for further management. This morning he reports persistent pain but no other complaints. He only participates with the exam sporadically. Sometimes he will answer questions and other times he will just stare blankly at me. This is been his baseline in the multiple admissions I have seen him. History is somewhat limited by this. Subjective/Events-last exam Pt reports toe pain. That is the only question that he answers for me. He otherwise closed his eyes and did not respond to any questions. Focused Exam Lactate Level 02/04/22 16:32: Lactic Acid Level 1.43 Objective Exam Vital Signs Vital Signs Date Time Temp Pulse Resp B/P (MAP) Pulse Ox O2 Delivery O2 Flow Rate FiO2 02/06/22 08:00 Nasal Cannula 3.00 02/06/22 07:30 36.7 45 20 113/69 (84) 99 02/04/22 19:39 21 Capillary Refill : General Appearance: No Apparent Distress, Chronically ill, Obese Respiratory: Lungs Clear, No Respiratory Distress Cardiovascular: Regular Rate, Rhythm, No Murmur Extremity: Swelling (right foot most notably on toe) Neurologic/Psychiatric: Alert, Other (seems appropriately oriented when he did participate in conversation) Results/Procedures Lab Laboratory Tests 02/06/22 07:06 Patient resulted labs reviewed. Imaging: Reviewed Imaging Report Assessment/Plan Assessment and Plan Assess & Plan/Chief Complaint Osteomyelitis Right great toe appearance worrisome for osteomyelitis Discussed with Dr De- plan for MRI Monday when available and may need amputation Discussed with Dr Kurtz due to diminished pulses, appreciate help dopplers reveal no thrombosis but concern for stenosis on right Continue IV abx Await cultures Hypotension- resolved Now resolved CKD stage 3a Hyperkalemia Monitor UOP K back up to 6.1 today Not on any supplemental K Lasix already given and insulin for hyperglycemia Calcium, albuterol, and kayexalate ordered Repeat BMP at 1500 T2DM Sliding scale insulin for now due to well controlled BS without home Levemir Continue home Jardiance HTN AFib Bipolar disorder BPH Continue home meds Morbid obesity Clinically significant, no acute management needs DVT ppx: Already on eliquis Critical Care Critically Ill Patient Diagnosis/Problems Diagnosis/Problems (1) COPD (chronic obstructive pulmonary disease) (2) Tobacco abuse (3) CKD (chronic kidney disease) (4) Chronic respiratory failure (5) Obesity hypoventilation syndrome (6) Insulin dependent diabetes mellitus (7) Anemia in CKD (chronic kidney disease) (8) Hyperkalemia (9) Atrial fibrillation (10) Seizure disorder Status: Chronic (11) Hypertension Status: Chronic (12) Osteomyelitis of great toe of right foot Status: Acute (13) T2DM (type 2 diabetes mellitus) Status: Acute (14) Morbid obesity Status: Chronic (15) CHF (congestive heart failure) Status: Acute (16) Bilateral lower extremity edema Status: Acute (17) Chronic pain Status: Acute (18) UTI (urinary tract infection) Status: Acute ANA MCGUIRE MD Feb 06, 2022 11:18
--- NOTE | 2022-02-06 12:31 | Consultation-Cardiology ---
HPI-Cardiology Cardiology Consultation Date of Consultation 02/06/22 Date of Admission Time Seen by Provider: 12:04 Indication: Critical limb ischemia HPI 57-year-old gentleman with history of coronary artery disease, patient was admitted for nonhealing wound on his right middle toe. He reported that the wound has been present for about 2 weeks. There is a concern for osteomyelitis. Underwent ultrasound to his right leg which suggested severe SFA disease. On my evaluation he was laying down in bed. Denied any chest pain. No shortness of breath. No palpitation. He has been following with Dr. Dolan. Home Medications & Allergies Allergies: Coded Allergies: penicillin V (Unverified Allergy, Unknown, 10/01/08) erythromycin base (Unverified Adverse Reaction, Mild, VOMITING, 03/18/13) Home Medication List Reviewed: Yes [id number] Hx Patient Social History Marital Status: Employed/Student: unemployed Smoking Status: Current Everyday Smoker Type Used: Cigarettes 2nd Hand Smoke Exposure: No Recent Hopitalizations: No Alcohol Use?: No Immunizations Up To Date Date of Pneumonia Vaccine: Mar 20, 2013 Past Medical History Discussed below Family Medical History Significant Family History: Heart Disease, Diabetes, Hypertension Family History: Cardiovascular disease 19 MOTHER G8 BROTHER Colon cancer 19 MOTHER Completed stroke 19 FATHER Dementia 19 FATHER Diabetes mellitus 19 MOTHER FHx: macular degeneration 19 FATHER Myocardial infarction 19 MOTHER Review of Systems-General Review of Systems Constitutional: see HPI, malaise EENTM: No blurred vision, No double vision Respiratory: see HPI; No cough; dyspnea on exertion; No hemoptysis, No orthopnea, No phlegm, No short of breath, No stridor, No wheezing, No other Cardiovascular: see HPI; No chest pain, No edema, No Hx of Intervention, No palpitations, No syncope; vascular heart diseas; No other Gastrointestinal: see HPI; No abdominal pain Genitourinary: see HPI; No decreased output, No discharge Musculoskeletal: see HPI Skin: see HPI; No change in color, No change in hair/nails Psychiatric/Neurological: Denies Anxiety, Denies Depressed, Denies Emotional Problems All Other Systems Reviewed Negative Unless Noted: Yes (Negative excepted noted.) Reviewed Test Results Reviewed Test Results Lab Laboratory Tests Test 02/05/22 17:05 02/05/22 20:22 02/06/22 05:13 02/06/22 07:06 Range/Units Glucometer 176 H 189 H 190 H 70-110 MG/DL White Blood Count 8.6 4.3-11.0 10^3/uL Red Blood Count 3.46 L 4.30-5.52 10^6/uL Hemoglobin 8.8 L 13.3-17.7 g/dL Hematocrit 30 L 40-54 % Mean Corpuscular Volume 86 80-99 fL Mean Corpuscular Hemoglobin 25 25-34 pg Mean Corpuscular Hemoglobin Concent 29 L 32-36 g/dL Red Cell Distribution Width 20.8 H 10.0-14.5 % Platelet Count 308 130-400 10^3/uL Mean Platelet Volume 11.6 9.0-12.2 fL Immature Granulocyte % (Auto) 1 % Neutrophils (%) (Auto) 73 42-75 % Lymphocytes (%) (Auto) 12 12-44 % Monocytes (%) (Auto) 11 0-12 % Eosinophils (%) (Auto) 2 0-10 % Basophils (%) (Auto) 1 0-10 % Neutrophils # (Auto) 6.3 1.8-7.8 10^3/uL Lymphocytes # (Auto) 1.0 1.0-4.0 10^3/uL Monocytes # (Auto) 1.0 0.0-1.0 10^3/uL Eosinophils # (Auto) 0.2 0.0-0.3 10^3/uL Basophils # (Auto) 0.1 0.0-0.1 10^3/uL Immature Granulocyte # (Auto) 0.1 0.0-0.1 10^3/uL Sodium Level 138 135-145 MMOL/L Potassium Level 6.1 H 3.6-5.0 MMOL/L Chloride Level 110 H 98-107 MMOL/L Carbon Dioxide Level 19 L 21-32 MMOL/L Anion Gap 9 5-14 MMOL/L Blood Urea Nitrogen 22 H 7-18 MG/DL Creatinine 1.32 H 0.60-1.30 MG/DL Estimat Glomerular Filtration Rate 63 BUN/Creatinine Ratio 17 Glucose Level 151 H 70-105 MG/DL Calcium Level 8.7 8.5-10.1 MG/DL Corrected Calcium 9.7 8.5-10.1 MG/DL Phosphorus Level 4.2 2.3-4.7 MG/DL Magnesium Level 2.2 1.6-2.4 MG/DL Total Bilirubin 0.4 0.1-1.0 MG/DL Aspartate Amino Transf (AST/SGOT) 6 5-34 U/L Alanine Aminotransferase (ALT/SGPT) 6 0-55 U/L Alkaline Phosphatase 57 40-136 U/L Total Protein 7.9 6.4-8.2 GM/DL Albumin 2.8 L 3.2-4.5 GM/DL Test 02/06/22 10:24 Range/Units Glucometer 200 H 70-110 MG/DL Physical Exam Physical Exam Vital Signs Vital Signs - First Documented 02/04/22 02/04/22 02/04/22 15:50 19:00 19:39 Temp 37.0 Pulse 60 Resp 26 B/P (MAP) 120/76 (91) Pulse Ox 99 O2 Delivery Nasal Cannula O2 Flow Rate 2.00 FiO2 21 Capillary Refill : Height, Weight, BMI Height: 6'2" Weight: 250lbs. 0.0oz. [id number]; 48.71 BMI Method:Estimated General Appearance: No Apparent Distress, Chronically ill, Obese HEENT: PERRL/EOMI, Moist Mucous Membranes; No Scleral Icterus (L), No Scleral Icterus (R) Neck: Normal Inspection, Supple Respiratory: Lungs Clear, No Respiratory Distress Cardiovascular: Regular Rate, Rhythm, No Murmur Gastrointestinal: Normal Bowel Sounds, Non Tender, Soft Extremity: Swelling (right foot most notably on toe) Neurologic/Psychiatric: Alert, Other (seems appropriately oriented when he did participate in conversation) Skin: Normal Color A/P-Cardiology Admission Diagnosis Nonhealing ulcer on the right lower extremity Hypertension Hyperlipidemia Bradycardia Assessment/Plan Nonhealing wound on the right foot. Involving the middle toe. Ultrasound was done on February 04, 2022 suggestive marked velocity elevation in the mid SFA, suggestive of severe stenosis. I discussed with him the management plan recommended angiogram and possible intervention. Coronary artery disease, cardiac catheterization was carried out in [place] [address] Dolan showing mild coronary artery disease with normal LV function. History of paroxysmal atrial fibrillation, currently in sinus rhythm Mild sinus bradycardia. Tolerating beta-lorelei at this time. Hypertension, hypertensive heart disease with left ventricular diastolic dysfunction Maintained on amlodipine 10 mg daily, Lopressor 100 mg twice daily. Tolerating current medication well. I will reevaluate 2D echo Chronic kidney disease, starting IV fluid and monitor renal function, minimize contrast use Diabetes mellitus, followed and managed by primary care physician History of seizure disorder. History of peripheral neuropathy History of right upper extremity venous thrombosis after central line placement Bipolar disorder Fibromyalgia Hyperlipidemia with intolerance to statin. TIMUR HAWKINS MD Feb 06, 2022 12:31
--- NOTE | 2022-02-06 12:39 | Conscious Sedation/ASA ---
Conscious Sedation Pre-Proced Time 12:38 ASA Score 3 For ASA 3 and 4: Consider anesthesia and medical clearance. Also, for patients with a history of failed moderate sedation consider anesthesia. Airway Lungs Heart ASA score ASA 1: a normal healthy patient ASA 2: a patient with a mild systemic disease (mid diabetes, controlled hypertension, obesity x ASA 3: a patient with a severe systemic disease that limits activity (angina, COPD, prior Myocardial infarction) ASA 4: a patient with an incapacitating disease that is a constant threat to life (CHF, renal failure) ASA 5: a moribund patient not expected to survive 24 hrs. (ruptured aneurysm) ASA 6: a declared brain- patient whose organs are being harvested. For emergent operations, add the letter E after the classification Mallampati Classification Grade 3 Sedation Plan Analgesia, Amnesia, Plan communicated to team members, Discussed options with patient/fam, Discussed risks with patient/fam The patient is an appropriate candidate to undergo the planned procedure, sedation, and anesthesia. The patient immediately re-assessed prior to indication. TIMUR HAWKINS MD Feb 06, 2022 12:39
[2022-02-06] MEDS ORDERED: HEParin (CATH LAB) 1,000 ML IV ONE (12:44)
[2022-02-06] MEDS ORDERED: VERAPAMIL 5 MG/2 ML (CALAN) VIAL IV ONE (12:44)
[2022-02-06] MEDS ORDERED: MIDAZOLAM 5 MG/5 ML (VERSED) VIAL ONE (12:44)
[2022-02-06] MEDS ORDERED: HEParin 1000 UNIT/ML (10ML VIAL) FOR BOLUS ONE (12:44)
[2022-02-06] MEDS ORDERED: NS IV 1000 ML 1,000 ML ONE (12:44)
[2022-02-06] MEDS ORDERED: fentaNYL INJ 100 MCG/2 ML AMP ONE (12:44)
[2022-02-06] MEDS ORDERED: NITRO DRIP 25000 MCG/D5W 0 ML IV ONE (12:44)
[2022-02-06] MEDS ORDERED: LIDOCAINE 1% INJ 20 ML VIAL ONE (12:49)
[2022-02-06] MEDS ORDERED: ONDANSETRON 4 MG/2 ML (SDV) Z0FRAN ONE (13:13)
[2022-02-06] MEDS ORDERED: diphenhydrAMINE 50 MG/ML INJ (BENADRYL) ONE (13:13)
--- NOTE | 2022-02-06 13:58 | Peripheral Report ---
Peripheral Report Physician (s)/Vault Keeper (s) Physician ITMUR HAWKINS MD Pre-Procedure Diagnosis Pre-Procedure Diagnosis: Foot ulcer, peripheral arterial disease Post-Procedure Note Procedure Start Date: Feb 06, 2022 Name of Procedure: Bilateral lower extremities runoff Third order Additional imaging X2 Findings/Procedure Note PROCEDURE NOTE: 57 years old gentleman with diabetes mellitus, hypertension hyperlipidemia, had nonhealing wound on his right lower extremity/right toe. Had an abnormal vascular ultrasound suggestive of mid SFA stenosis. Scheduled for peripheral angiogram After explaining the procedure to the patient, all pros and cons were explained, all questions were answered. The patient signed the consent and then he was placed on the cardiac catheterization laboratory. The patient was placed on the cardiac catheterization laboratory. Groin was prepped SL fashion local anesthesia was used. Sheath placed in the left femoral artery, using a rim catheter I crossed over to the right side and advanced straight catheter, placed a straight catheter in the proximal SFA and did runoff to the right leg then I advanced the catheter to the popliteal artery and did DSA imaging at the level of the trifurcation and at the distal portion of the foot. Then I flushed the catheter and measured to pressure and during pullback there was a 20 mmHg gradient at the mid SFA, I did DSA imaging to the mid SFA it was very mild stenosis then I pulled the catheter up to the right common iliac and did an injection to the right common iliac and common femoral artery then the straight catheter was removed and did a single injection through the sheath in the left lower extremity and did runoff down to the trifurcation. At the end of the procedure sheath was removed and closure device was used FINDINGS: Right lower extremity: Right common iliac and common femoral artery has no obstructive disease Right SFA has mild calcification at the midportion with mild stenosis nonobstructive disease less than 20% stenosis Right popliteal artery has no obstructive disease Below the knee angiogram: The tibioperoneal trunk, anterior tibial and posterior tibial and peroneal arteries has mild irregularity with no obstructive disease with brisk flow down to the foot Left lower extremity: Runoff was done through the sheath down to the trifurcation showing mild disease with excellent flow down to the trifurcation CONCLUSIONS: 1. Mild peripheral arterial disease, no obstructive disease was identified in both lower extremities. 2. Multiple stages imaging of the right lower extremities showed no significant obstructive disease DISCUSSION AND RECOMMENDATIONS: No intervention is recommended Anesthesia Type: Conscious Sedation Estimated blood loss (mL): 15 ml Contrast Amount: 23 ml Total Radiation Dose: 239 mGy Post-Procedure Diagnosis Post-operative diagnosis: Foot ulcer Peripheral arterial disease Diabetes mellitus Hypertension TIMUR HAWKINS MD Feb 06, 2022 13:58
[2022-02-06] MEDS ORDERED: PATIENT MAY USE OWN MEDS, ALL PO SCH (14:00)
[2022-02-06 15:57] LABS: POTASSIUM 5.5 MMOL/L (3.6-5.0)
[2022-02-06 15:58] LABS: CALCIUM 8.9 MG/DL (8.5-10.1)
[2022-02-06 16:02] LABS: CREATININE SERUM 1.23 MG/DL (0.60-1.30)
--- NOTE | 2022-02-06 17:01 | Progress Note - Surgery ---
Subjective Date Seen by a Provider: Feb 06, 2022 Time Seen by a Provider: 11:19 Subjective/Events-last exam Patient is doing well. Patient with some blockage to the right lower extremity so going to go for intervention later today. Patient right big toe still with pain. Unchanged from yesterday. Patient not willing to have amputation of the great toe at this time. No new complaints. Denies any nausea vomiting fever sweats chills shortness of breath or chest pain. Focused Exam Lactate Level 02/04/22 16:32: Lactic Acid Level 1.43 Objective Exam Vital Signs Date Time Temp Pulse Resp B/P (MAP) Pulse Ox O2 Delivery O2 Flow Rate FiO2 02/06/22 16:00 55 24 160/77 (104) 93 Nasal Cannula 2.00 02/06/22 15:00 45 136/72 (93) 96 Nasal Cannula 2.00 02/06/22 14:45 65 16 112/89 (97) 100 Nasal Cannula 2.00 02/06/22 14:30 53 14 152/70 (97) 100 Nasal Cannula 2.00 02/06/22 14:22 61 135/66 (89) Nasal Cannula 2.00 02/06/22 13:00 59 02/06/22 12:07 99 Nasal Cannula 2.00 02/06/22 11:24 36.3 55 20 123/54 (77) 98 Nasal Cannula 2.00 02/06/22 08:00 Nasal Cannula 3.00 02/06/22 07:30 36.7 45 20 113/69 (84) 99 Nasal Cannula 2.00 02/06/22 07:30 Nasal Cannula 2.00 02/06/22 07:25 100 Nasal Cannula 3.00 02/06/22 07:00 53 02/06/22 03:19 35.9 54 22 126/81 (96) 99 Nasal Cannula 3.00 02/06/22 01:00 50 02/05/22 23:53 36.7 63 22 115/57 (76) 99 Nasal Cannula 3.00 02/05/22 20:50 Nasal Cannula 3.00 02/05/22 19:15 37.3 76 20 158/70 (99) 96 Nasal Cannula 3.00 02/05/22 19:00 77 02/05/22 18:27 96 Nasal Cannula 4.00 I & O 02/06/22 07:00 Intake Total 4287.5 ml Output Total 3120 ml Balance 1167.5 ml Capillary Refill : Less Than 3 Seconds General Appearance: No Apparent Distress, Chronically ill, Obese HEENT: PERRL/EOMI, Moist Mucous Membranes; No Scleral Icterus (L), No Scleral Icterus (R) Neck: Normal Inspection, Supple Respiratory: Lungs Clear, No Respiratory Distress Cardiovascular: Regular Rate, Rhythm, No Murmur Peripheral Pulses: 1+ Dorsalis Pedis (R), 1+ Left Dors-Pedis (L) (See free text) Gastrointestinal: non tender, soft Extremity: Swelling (right foot most notably on toe) Neurologic/Psychiatric: Alert, Oriented x3 Skin: Normal Color, Other (Right great toe with a little bit of minimal drainage and soft tissues, tender) Lymphatic: No Adenopathy Results Lab Laboratory Tests 02/05/22 17:05: Glucometer 176H 02/05/22 20:22: Glucometer 189H 02/06/22 05:13: Glucometer 190H 02/06/22 07:06: White Blood Count 8.6, Red Blood Count 3.46L, Hemoglobin 8.8L, Hematocrit 30L, Mean Corpuscular Volume 86, Mean Corpuscular Hemoglobin 25, Mean Corpuscular Hemoglobin Concent 29L, Red Cell Distribution Width 20.8H, Platelet Count 308, Mean Platelet Volume 11.6, Immature Granulocyte % (Auto) 1, Neutrophils (%) (Auto) 73, Lymphocytes (%) (Auto) 12, Monocytes (%) (Auto) 11, Eosinophils (%) (Auto) 2, Basophils (%) (Auto) 1, Neutrophils # (Auto) 6.3, Lymphocytes # (Auto) 1.0, Monocytes # (Auto) 1.0, Eosinophils # (Auto) 0.2, Basophils # (Auto) 0.1, Immature Granulocyte # (Auto) 0.1, Sodium Level 138, Potassium Level 6.1H, Chloride Level 110H, Carbon Dioxide Level 19L, Anion Gap 9, Blood Urea Nitrogen 22H, Creatinine 1.32H, Estimat Glomerular Filtration Rate 63, BUN/Creatinine Ratio 17, Glucose Level 151H, Calcium Level 8.7, Corrected Calcium 9.7, Phosphorus Level 4.2, Magnesium Level 2.2, Total Bilirubin 0.4, Aspartate Amino Transf (AST/SGOT) 6, Alanine Aminotransferase (ALT/SGPT) 6, Alkaline Phosphatase 57, Total Protein 7.9, Albumin 2.8L 02/06/22 10:24: Glucometer 200H 02/06/22 15:39: Sodium Level 140, Potassium Level 5.5H, Chloride Level 110H, Carbon Dioxide Level 20L, Anion Gap 10, Blood Urea Nitrogen 21H, Creatinine 1.23, Estimat Glomerular Filtration Rate 68, BUN/Creatinine Ratio 17, Glucose Level 127H, Calcium Level 8.9 02/06/22 15:59: Glucometer 147H Microbiology 02/04/22 Urine Culture - Final, Complete Klebsiella pneumoniae 02/04/22 Blood Culture - Preliminary, Resulted Staphylococcus species Assessment/Plan Assessment/Plan Assessment/Plan Right foot cellulitis right great toe with possible osteomyelitis. Discussed amputation of the right great toe due to the infection which patient does not want to do this yet. Patient going for right lower extremity angiography and possible intervention today. We discussed doing a MRI to further evaluate the right foot. We will continue on antibiotics. IV fluids. We will continue to keep the area clean and dry. We will follow. Patient currently adamant that he does not want the toe amputated. BIJU MACKENZIE DO Feb 06, 2022 17:01
[2022-02-06] MEDS: TAMSULOSIN 0.4 MG (FLOMAX) CAP PO SCH (18:29)
[2022-02-06] MEDS: MELATONIN 3 MG TABLET PO SCH (20:21)
[2022-02-06] MEDS: doxAzosin 2 MG (CARDURA) TAB PO SCH (20:21)
[2022-02-06] MEDS ORDERED: TROUGH ORDER-PHARMACY XX NR (23:30)
[2022-02-07] VITALS (7 sets, daily range): BP systolic 145–180; BP diastolic 61–90
[2022-02-07] MEDS: VANCOMYCIN 1,750 MG/NS 500 ML IVPB IV SCH ×2 (00:30)
[2022-02-07] MEDS: CEFEPIME 1,000 MG/NS 50 ML IVPB IV SCH ×8 (00:52→17:38)
[2022-02-07] MEDS: HYDROcodone/APAP 5 MG/325 MG (LORTAB) TAB PO PRN ×2 (00:56→20:14)
[2022-02-07] MEDS: NS IV 1000 ML 1,000 ML IV SCH (01:02)
[2022-02-07 05:20] LABS: BASOPHILS % (AUTO) 1 % (0-10); EOSINOPHILS # (AUTO) 0.2 10^3/uL (0.0-0.3); EOSINOPHILS % (AUTO) 2 % (0-10); HEMATOCRIT 30 % (40-54); HEMOGLOBIN 8.7 g/dL (13.3-17.7); LYMPHOCYTES # (AUTO) 0.8 10^3/uL (1.0-4.0); LYMPHOCYTES % (AUTO) 12 % (12-44); MEAN CORPUSCULAR HEMOGLOBIN 25 pg (25-34); MEAN CORPUSCULAR HGB CONC 29 g/dL (32-36); MEAN CORPUSCULAR VOLUME 86 fL (80-99); MEAN PLATELET VOLUME 11.1 fL (9.0-12.2); MONOCYTES # (AUTO) 0.8 10^3/uL (0.0-1.0); MONOCYTES % (AUTO) 11 % (0-12); NEUTROPHILS # (AUTO) 5.2 10^3/uL (1.8-7.8); NEUTROPHILS % (AUTO) 74 % (42-75); PLATELET COUNT 270 10^3/uL (130-400)
[2022-02-07 05:37] LABS: ALBUMIN 2.7 GM/DL (3.2-4.5); POTASSIUM 5.3 MMOL/L (3.6-5.0)
[2022-02-07 05:38] LABS: CALCIUM 8.9 MG/DL (8.5-10.1)
[2022-02-07 05:39] LABS: TOTAL PROTEIN 7.5 GM/DL (6.4-8.2)
[2022-02-07 05:41] LABS: BILIRUBIN,TOTAL 0.3 MG/DL (0.1-1.0)
[2022-02-07 05:42] LABS: PHOSPHORUS 4.7 MG/DL (2.3-4.7)
[2022-02-07 05:43] LABS: CREATININE SERUM 1.26 MG/DL (0.60-1.30)
[2022-02-07] MEDS: inSUlin ASPART (NovoLOG) 1 UNIT/0.01 ML (CHARGE PER UNIT) SC SCH ×4 (06:29→21:17)
[2022-02-07] MEDS ORDERED: TROUGH ORDER-PHARMACY XX NR ×2 (07:30→17:00)
[2022-02-07] MEDS: RT--FLUTICASONE/SALMETEROL 232-14 (AIRDUO RespiCLICK) IH SCH ×2 (07:37→21:13)
[2022-02-07] MEDS: UMECLIDINIUM BROMIDE (INCRUSE ELLIPTA) 7'S IH SCH (07:39)
[2022-02-07] MEDS: FUROSEMIDE 20 MG (LASIX) TAB PO SCH (08:54)
[2022-02-07] MEDS: DULoxetine 20 MG (CYMBALTA) CAP PO SCH (08:54)
[2022-02-07] MEDS: APIXABAN 5 MG (ELIQUIS) TABLET PO SCH ×2 (08:54→20:13)
[2022-02-07] MEDS: GABAPENTIN 100 MG (NEURONTIN) CAP PO SCH ×3 (08:54→20:13)
[2022-02-07] MEDS: ASPIRIN E.C. 81 MG (ECOTRIN) TAB PO SCH (08:54)
[2022-02-07] MEDS: EMPAGLIFLOZIN 10 MG TABLET (JARDIANCE) PO SCH (08:54)
[2022-02-07] MEDS: amLODIPine 10 MG (NORVASC) TAB PO SCH (08:54)
[2022-02-07] MEDS: meTOprolol TARTRATE 50 MG (LOPRESSOR) TAB PO SCH ×2 (08:54→20:13)
[2022-02-07] MEDS: DIVALPROEX 250 MG DELAYED RELEASE (DEPAKOTE) TAB PO SCH ×3 (08:55→20:13)
[2022-02-07] MEDS: ROSUVASTATIN 20 MG (CRESTOR) TABLET PO SCH (08:55)
[2022-02-07] MEDS: BRIMONIDINE 0.2% (ALPHAGAN) OPHTH SOLN 5 ML BTL OU SCH ×2 (08:56→20:15)
--- NOTE | 2022-02-07 11:20 | Cardiology Progress Note ---
Subjective Date Seen by Provider: Feb 07, 2022 Time Seen by Provider: 11:19 Subjective/Events-last exam Patient was seen at bedside, laying down comfortably. No new complaint Review of Systems General: No Chills, No Night Sweats; Fatigue, Malaise; No Appetite, No Other HEENT: No Head Aches, No Visual Changes, No Eye Pain, No Ear Pain, No Dysphasia, No Sinus Congestion, No Post Nasal Drip, No Sore Throat, No Other Pulmonary: No Dyspnea, No Cough, No Pleuritic Chest Pain, No Other Cardiovascular: No: Chest Pain, Palpitations, Orthopnea, Paroxysmal Noc. Dyspnea, Edema, Lt Headedness, Other Focused Exam Lactate Level 02/04/22 16:32: Lactic Acid Level 1.43 Objective-Cardiology Exam Last Set of Vital Signs Vital Signs 02/04/22 02/07/22 02/07/22 02/07/22 19:39 07:36 07:37 08:00 Temp 36.6 Pulse 71 Resp 20 B/P (MAP) 180/90 (120) Pulse Ox 96 O2 Delivery Nasal Cannula O2 Flow Rate 3.00 FiO2 21 I&O Intake and Output 02/07/22 00:00 Intake Total 1937 ml Output Total 2695 ml Balance -758 ml Intake Oral 1120 ml IV Total 817 ml Output Urine Total 2695 ml General: Alert, Oriented X3, Cooperative HEENT: Atraumatic, PERRLA Neck: Supple, No JVD, No Thyromegaly Lungs: Clear to Auscultation, Normal Air Movement Heart: Regular Rate, Normal S1, Normal S2, No Murmurs Abdomen: Normal Bowel Sounds, Soft, No Tenderness, No Hepatosplenomegaly, No Masses Extremities: No Clubbing, No Cyanosis, No Edema, Normal Pulses, No Tenderness/Swelling Skin: No Rashes, No Breakdown, No Significant Lesion Neuro: Normal Gait, Normal Speech, Strength at 5/5 X4 Ext, Normal Tone, Sensation Intact Psych/Mental Status: Mental Status NL, Mood NL Results Lab Laboratory Tests 02/06/22 15:39 02/07/22 05:03 A/P-Cardiology Admission Diagnosis Nonhealing ulcer on the right lower extremity Hypertension Hyperlipidemia Bradycardia Assessment/Plan Nonhealing wound on the right foot. Involving the middle toe. Ultrasound was done on February 04, 2022 suggestive marked velocity elevation in the mid SFA, suggestive of severe stenosis. Peripheral angiogram was done on February 06, 2022 showing mild peripheral arterial disease nonobstructive disease. Conservative management is recommended. Receiving antibiotics. Managed by medical team, Dr. De is on consult Coronary artery disease, cardiac catheterization was carried out in [place] [address] Dolan showing mild coronary artery disease with normal LV function. History of paroxysmal atrial fibrillation, currently in sinus rhythm Mild sinus bradycardia. Tolerating beta-lorelei at this time. Hypertension, hypertensive heart disease with left ventricular diastolic dysfunction Maintained on amlodipine 10 mg daily, Lopressor 100 mg twice daily. Tolerating current medication well. Chronic kidney disease, starting IV fluid and monitor renal function, minimize contrast use Diabetes mellitus, followed and managed by primary care physician History of seizure disorder. History of peripheral neuropathy History of right upper extremity venous thrombosis after central line placement Bipolar disorder Fibromyalgia Hyperlipidemia with intolerance to statin. TIMUR HAWKINS MD Feb 07, 2022 11:20
--- NOTE | 2022-02-07 14:22 | Progress Note - Surgery ---
Subjective Date Seen by a Provider: Feb 07, 2022 Time Seen by a Provider: 14:17 Subjective/Events-last exam Received right leg arteriography yesterday, no interventions done at that time. Patient continues to have right foot pain, over right great toe. Necrosis and oozing from wound, recommended amputation of right great toe, however patient still decline amputation at this time. Will discuss amputation again tomorrow if no improvement. Denies n/v fever sweats chills shortness of breath or chest pain. Focused Exam Lactate Level 02/04/22 16:32: Lactic Acid Level 1.43 Objective Exam Vital Signs Date Time Temp Pulse Resp B/P (MAP) Pulse Ox O2 Delivery O2 Flow Rate FiO2 02/07/22 12:06 60 02/07/22 11:50 36.3 65 20 156/69 (98) 97 Nasal Cannula 3.00 02/07/22 08:00 Nasal Cannula 3.00 02/07/22 07:39 Nasal Cannula 3.00 02/07/22 07:37 96 Nasal Cannula 3.00 02/07/22 07:36 36.6 71 20 180/90 (120) 97 Nasal Cannula 3.00 02/07/22 07:03 55 02/07/22 04:19 36.3 68 16 147/68 (94) 99 Nasal Cannula 3.00 02/07/22 01:00 57 02/07/22 00:00 36.6 74 18 145/61 (89) 99 Nasal Cannula 3.00 02/06/22 20:20 36.9 89 18 171/87 (115) 94 Nasal Cannula 2.00 02/06/22 20:20 94 Nasal Cannula 3.00 02/06/22 19:00 65 02/06/22 18:59 54 20 154/76 (102) 93 Nasal Cannula 2.00 02/06/22 18:38 99 Nasal Cannula 2.00 02/06/22 18:00 67 28 160/76 (104) 97 Nasal Cannula 2.00 02/06/22 17:00 57 20 155/73 (100) 100 Nasal Cannula 2.00 02/06/22 16:00 55 24 160/77 (104) 93 Nasal Cannula 2.00 02/06/22 15:30 51 27 156/95 (115) 97 Nasal Cannula 2.00 02/06/22 15:00 45 136/72 (93) 96 Nasal Cannula 2.00 02/06/22 14:45 65 16 112/89 (97) 100 Nasal Cannula 2.00 02/06/22 14:30 53 14 152/70 (97) 100 Nasal Cannula 2.00 02/06/22 14:22 61 135/66 (89) Nasal Cannula 2.00 I & O 02/07/22 07:00 Intake Total 2557 ml Output Total 2125 ml Balance 432 ml Capillary Refill : Less Than 3 Seconds General Appearance: No Apparent Distress, Chronically ill, Obese HEENT: PERRL/EOMI, Moist Mucous Membranes; No Scleral Icterus (L), No Scleral Icterus (R) Neck: Normal Inspection, Supple Respiratory: Chest Non Tender, No Accessory Muscle Use, No Respiratory Distress Cardiovascular: Regular Rate, Rhythm, No JVD Peripheral Pulses: 1+ Dorsalis Pedis (R), 1+ Left Dors-Pedis (L) (See free text) Gastrointestinal: non tender, soft, other (obese) Extremity: Swelling (right foot great toe, oozing from wound medial aspect, appears to have necrosis, foul smelling) Neurologic/Psychiatric: Alert, Oriented x3 Skin: Normal Color, Other (Right great toe with a little bit of minimal drainage and soft tissues, tender) Lymphatic: No Adenopathy Results Lab Laboratory Tests 02/06/22 15:39: Sodium Level 140, Potassium Level 5.5H, Chloride Level 110H, Carbon Dioxide Level 20L, Anion Gap 10, Blood Urea Nitrogen 21H, Creatinine 1.23, Estimat Glomerular Filtration Rate 68, BUN/Creatinine Ratio 17, Glucose Level 127H, Calcium Level 8.9 02/06/22 15:59: Glucometer 147H 02/06/22 18:27: Glucometer 130H 02/06/22 19:51: Glucometer 126H 02/06/22 23:35: Vancomycin Level Trough 30.1*H 02/07/22 05:03: White Blood Count 7.0, Red Blood Count 3.46L, Hemoglobin 8.7L, Hematocrit 30L, Mean Corpuscular Volume 86, Mean Corpuscular Hemoglobin 25, Mean Corpuscular Hem oglobin Concent 29L, Red Cell Distribution Width 20.8H, Platelet Count 270, Mean Platelet Volume 11.1, Immature Granulocyte % (Auto) 1, Neutrophils (%) (Auto) 74, Lymphocytes (%) (Auto) 12, Monocytes (%) (Auto) 11, Eosinophils (%) (Auto) 2, Basophils (%) (Auto) 1, Neutrophils # (Auto) 5.2, Lymphocytes # (Auto) 0.8L, Monocytes # (Auto) 0.8, Eosinophils # (Auto) 0.2, Basophils # (Auto) 0.0, Immature Granulocyte # (Auto) 0.0, Sodium Level 142, Potassium Level 5.3H, Chloride Level 111H, Carbon Dioxide Level 21, Anion Gap 10, Blood Urea Nitrogen 20H, Creatinine 1.26, Estimat Glomerular Filtration Rate 67, BUN/Creatinine Ratio 16, Glucose Level 158H, Calcium Level 8.9, Corrected Calcium 9.9, Phosphorus Level 4.7, Magnesium Level 2.0, Total Bilirubin 0.3, Aspartate Amino Transf (AST/SGOT) 6, Alanine Aminotransferase (ALT/SGPT) 8, Alkaline Phosphatase 58, Total Protein 7.5, Albumin 2.7L 02/07/22 05:35: Glucometer 156H 02/07/22 07:50: Vancomycin Level Trough 26.7*H 02/07/22 11:18: Glucometer 279H Microbiology 02/04/22 Urine Culture - Final, Complete Klebsiella pneumoniae 02/04/22 Blood Culture - Preliminary, Resulted Staphylococcus aureus Assessment/Plan Assessment/Plan Assessment/Plan Right foot cellulitis right great toe with necrotic wound possible osteomyelitis. Discussed amputation of the right great toe due to the infection which patient does not want to do this yet. Patient had right lower extremity angiography with no intervention. We discussed doing a MRI to further evaluate the right foot, not able to be done due to patient size. We will continue on antibiotics. IV fluids. We will continue to keep the area clean and dry. We will follow. Patient currently adamant that he still does not want the toe amputated. I feel amputation of the right great toe would be best for further management. If patient changes his mind would proceed. IBJU MACKENZIE DO Feb 07, 2022 14:22
--- NOTE | 2022-02-07 14:39 | Physical Therapy Progress Note ---
Therapy Progress Note Attempted to see patient for PT treatment. He refused reporting his right foot/toe hurt too bad. When asked if he could try to sit up in the chair or w/c, he rolled his eyes and said, "Man, I can't move that thing, I'll try tomorrow." Nurse in the room upon PT departure. Will attempt treatment again tomorrow and progress patient activity as he will agree to. ELIZABETH HAYES PT Feb 07, 2022 14:39
--- NOTE | 2022-02-07 15:05 | Progress Note - Hospitalist ---
Subjective HPI/CC On Admission Date Seen by Provider: Feb 07, 2022 Time Seen by Provider: 10:45 Pt is a 57-year-old -[place] male well-known to me from multiple previous admissions who presented to the emergency department toe pain. He states has been going on for a few days though he told the emergency department to started yesterday. Per ER note he had a callus removed by a traffic maintenance supervisor roughly 2 weeks ago. In the emergency department there was concern for osteomyelitis and sepsis so he was admitted for further management. This morning he reports persistent pain but no other complaints. He only participates with the exam sporadically. Sometimes he will answer questions and other times he will just stare blankly at me. This is been his baseline in the multiple admissions I have seen him. History is somewhat limited by this. Subjective/Events-last exam He is having toe pain. He has no other complaints. He denies shortness of breath. He denies nausea. Focused Exam Lactate Level 02/04/22 16:32: Lactic Acid Level 1.43 Objective Exam Vital Signs Vital Signs Date Time Temp Pulse Resp B/P (MAP) Pulse Ox O2 Delivery O2 Flow Rate FiO2 02/07/22 14:37 36.3 65 97 32 02/07/22 11:50 20 156/69 (98) Nasal Cannula 3.00 Capillary Refill : Less Than 3 Seconds General Appearance: No Apparent Distress, Chronically ill, Obese Respiratory: Lungs Clear, No Respiratory Distress Cardiovascular: Regular Rate, Rhythm, No Murmur Gastrointestinal: Normal Bowel Sounds, Soft Extremity: No Inflammation; Swelling, Other (right great toe ulceration, foul smelling) Neurologic/Psychiatric: Alert, Normal Mood/Affect Skin: Warm/Dry, Other (right great toe ulcer) Results/Procedures Lab Laboratory Tests 02/06/22 15:39 02/07/22 05:03 Patient resulted labs reviewed. Imaging: Reviewed Imaging Report Assessment/Plan Assessment and Plan Assess & Plan/Chief Complaint Osteomyelitis MRSA bacteremia Klebsiella UTI Right great toe appearance worrisome for osteomyelitis Cardiology following, peripheral angiogram without significant stenosis Surgery following, unable to obtain MRI, patient refusing amputation at this time Blood cultures with MRSA Continue IV antibiotics Obtain echo CKD stage 3a Hyperkalemia Monitor output Potassium improved T2DM Sliding scale insulin Continue home Jardiance HTN AFib Bipolar disorder BPH Continue home meds Morbid obesity Clinically significant, no acute management needs DVT ppx: Already on eliquis Hypotension, resolved Diagnosis/Problems Diagnosis/Problems (1) MRSA bacteremia Status: Acute (2) Osteomyelitis of great toe of right foot Status: Acute (3) T2DM (type 2 diabetes mellitus) Status: Acute (4) CKD (chronic kidney disease) Status: Chronic Qualifiers: Chronic kidney disease stage: stage 3 (moderate) Chronic kidney disease stage 3 subtype: stage 3a (GFR 45-59) Qualified Codes: N18.31 - Chronic kidney disease, stage 3a (5) Morbid obesity Status: Chronic GUALBERTO ROJAS MD Feb 07, 2022 15:05
--- NOTE | 2022-02-07 17:15 | Physician Query Clarification ---
Physician Query-General Query to Physician: The medical record reflects the following clinical scenario: The patient, in the setting of History/Risk factors, Hx HTN, Hypertensive Heart disease Clinical Findings Per Cardiology "left Ventricular Diastolic Dysfunction", 1+ Edema, Treatment Lasix, amlodipine, Lopressor, Cardiology consult 2D echo, Question: Can you further specify Acute Congestive Heart failure per the clinical indicators above? Please document your response in the Progress Notes or Discharge Summary. 1. Acute Congestive Heart Failure, Diastolic, present on admission 2. Other, with explanation of clinical findings 3. Clinically undetermined, no explanation for clinical findings Please clarify and document your clinical opinion in the Progress Notes and Discharge Summary including the definitive and/or presumptive diagnosis, (suspected or probable), related to the above clinical findings. Please include clinical findings supporting your diagnosis. In responding to this query, please exercise your independent professional judgment. The purpose of this communication is to more accurately reflect the complexity of your patients condition. The fact that a question is asked does not imply that any particular answer is desired or expected. Thank you for timely response to this clarification. Carolann Pichardo RN, MSN Clinical Table And Desk Finisher [phone] [email or web address] PHYSICIAN RESPONSE: Based on the clinical findings in the record, please respond to the query above on this document as an addendum. Physician Response: Physician Response 1 If you have questions please contact: Flight Operation Coordinator: Ext: Thank you for your time and cooperation. Clinical Table And Desk Finisher/Flight Operation Coordinator This is a permanent part of the medical record CAROLANN PICHARDO Feb 07, 2022 17:15 ANA MCGUIRE MD Feb 15, 2022 11:54
[2022-02-07] MEDS: TAMSULOSIN 0.4 MG (FLOMAX) CAP PO SCH (17:37)
[2022-02-07] MEDS: doxAzosin 2 MG (CARDURA) TAB PO SCH (20:13)
[2022-02-07] MEDS: MELATONIN 3 MG TABLET PO SCH (20:13)
[2022-02-07] MEDS: RT-ALBUTEROL/IPRATROPIUM 3 ML (DUONEB) VIAL INH SCH (21:12)
[2022-02-08] VITALS (7 sets, daily range): BP systolic 122–169; BP diastolic 58–86
[2022-02-08] MEDS: CEFEPIME 1,000 MG/NS 50 ML IVPB IV SCH ×6 (00:16→12:15)
[2022-02-08] MEDS: RT-ALBUTEROL/IPRATROPIUM 3 ML (DUONEB) VIAL INH SCH ×4 (03:06→21:03)
[2022-02-08] MEDS: inSUlin ASPART (NovoLOG) 1 UNIT/0.01 ML (CHARGE PER UNIT) SC SCH ×4 (05:51→20:46)
[2022-02-08 05:59] LABS: BASOPHILS # (AUTO) 0.1 10^3/uL (0.0-0.1); BASOPHILS % (AUTO) 1 % (0-10); EOSINOPHILS # (AUTO) 0.2 10^3/uL (0.0-0.3); EOSINOPHILS % (AUTO) 2 % (0-10); HEMATOCRIT 29 % (40-54); HEMOGLOBIN 8.5 g/dL (13.3-17.7); LYMPHOCYTES % (AUTO) 11 % (12-44); MEAN CORPUSCULAR HEMOGLOBIN 25 pg (25-34); MEAN CORPUSCULAR HGB CONC 29 g/dL (32-36); MEAN CORPUSCULAR VOLUME 84 fL (80-99); MEAN PLATELET VOLUME 11.5 fL (9.0-12.2); MONOCYTES # (AUTO) 1.1 10^3/uL (0.0-1.0); MONOCYTES % (AUTO) 12 % (0-12); NEUTROPHILS # (AUTO) 6.4 10^3/uL (1.8-7.8); NEUTROPHILS % (AUTO) 74 % (42-75); PLATELET COUNT 272 10^3/uL (130-400); WHITE BLOOD COUNT 8.7 10^3/uL (4.3-11.0)
[2022-02-08] MEDS ORDERED: TROUGH ORDER-PHARMACY XX NR (06:00)
[2022-02-08 06:20] LABS: ALBUMIN 2.7 GM/DL (3.2-4.5); BILIRUBIN,TOTAL 0.3 MG/DL (0.1-1.0); CALCIUM 9.2 MG/DL (8.5-10.1); CREATININE SERUM 1.35 MG/DL (0.60-1.30); PHOSPHORUS 4.3 MG/DL (2.3-4.7); POTASSIUM 5.1 MMOL/L (3.6-5.0); TOTAL PROTEIN 7.7 GM/DL (6.4-8.2)
[2022-02-08] MEDS: RT--FLUTICASONE/SALMETEROL 232-14 (AIRDUO RespiCLICK) IH SCH ×2 (06:24→21:03)
[2022-02-08] MEDS: UMECLIDINIUM BROMIDE (INCRUSE ELLIPTA) 7'S IH SCH (06:24)
[2022-02-08 06:26] LABS: VANCOMYCIN,TROUGH 15.4 UG/ML (10.0-20.0)
--- NOTE | 2022-02-08 07:56 | Progress Note - Surgery ---
MCKENZIE WEBER 02/08/22 0756: Subjective Date Seen by a Provider: Feb 08, 2022 Time Seen by a Provider: 07:51 Subjective/Events-last exam Pt resting comfortably in bed. Notes his toe pain is still 02/16. Discussed amputation of right great toe, he is currently agreeable to plan of amputation of right great toe at this time. He denies n/v, fever, sweats, chills. Objective Exam Vital Signs Date Time Temp Pulse Resp B/P (MAP) Pulse Ox O2 Delivery O2 Flow Rate FiO2 02/08/22 07:42 36.6 50 20 122/58 (79) 100 Nasal Cannula 3.00 02/08/22 07:03 48 02/08/22 06:29 Nasal Cannula 3.00 02/08/22 06:28 97 Nasal Cannula 3.00 02/08/22 06:27 97 Nasal Cannula 3.00 02/08/22 03:47 36.6 50 18 126/75 (92) 98 Nasal Cannula 3.00 02/08/22 03:06 Nasal Cannula 3.00 02/08/22 01:00 44 02/08/22 00:47 36.5 56 20 138/62 (87) 97 Nasal Cannula 3.00 02/07/22 21:13 99 Nasal Cannula 3.00 02/07/22 20:15 Nasal Cannula 3.00 02/07/22 19:21 37.2 65 20 167/72 (103) 95 Room Air 02/07/22 19:00 59 02/07/22 16:29 36.8 65 15 161/82 (108) 96 Nasal Cannula 3.00 02/07/22 14:52 42 02/07/22 14:49 42 02/07/22 14:45 36 02/07/22 14:37 36.3 65 97 32 02/07/22 14:20 39 02/07/22 14:17 36 02/07/22 12:06 60 02/07/22 11:50 36.3 65 20 156/69 (98) 97 Nasal Cannula 3.00 02/07/22 08:00 Nasal Cannula 3.00 I & O0 02/08/22 07:00 Intake Total 3876 ml Output Total 5375 ml Balance -1499 ml Capillary Refill : Less Than 3 Seconds General Appearance: No Apparent Distress, Chronically ill, Obese HEENT: PERRL/EOMI, Moist Mucous Membranes; No Scleral Icterus (L), No Scleral Icterus (R) Neck: Normal Inspection, Supple Respiratory: Chest Non Tender, Lungs Clear, Normal Breath Sounds, No Accessory Muscle Use, No Respiratory Distress Cardiovascular: Regular Rate, Rhythm, No JVD, No Murmur Peripheral Pulses: 1+ Dorsalis Pedis (R), 1+ Left Dors-Pedis (L) (See free text); 2+ Radial Pulses (R), 2+ Radial Pulses (L) Gastrointestinal: normal bowel sounds, non tender, soft, other (obese) Extremity: No Calf Tenderness, Swelling (right foot great toe, oozing from wound medial aspect, appears to have increasing necrotic tissue. Foul smelling. ) Neurologic/Psychiatric: Alert, Oriented x3 Skin: Normal Color, Other (Right great toe with slight drainage, tender) Lymphatic: No Adenopathy Results Lab Laboratory Tests 02/07/22 11:18: Glucometer 279H 02/07/22 16:35: Glucometer 132H 02/07/22 17:35: Vancomycin Level Trough 21.0H 02/07/22 20:37: Glucometer 237H 02/08/22 05:32: Glucometer 161H 02/08/22 05:34: White Blood Count 8.7, Red Blood Count 3.44L, Hemoglobin 8.5L, Hematocrit 29L, Mean Corpuscular Volume 84, Mean Corpuscular Hemoglobin 25, Mean Corpuscular Hemoglobin Concent 29L, Red Cell Distribution Width 20.6H, Platelet Count 272, Mean Platelet Volume 11.5, Immature Granulocyte % (Auto) 1, Neutrophils (%) (Auto) 74, Lymphocytes (%) (Auto) 11L, Monocytes (%) (Auto) 12, Eosinophils (%) (Auto) 2, Basophils (%) (Auto) 1, Neutrophils # (Auto) 6.4, Lymphocytes # (Auto) 1.0, Monocytes # (Auto) 1.1H, Eosinophils # (Auto) 0.2, Basophils # (Auto) 0.1, Immature Granulocyte # (Auto) 0.0, Sodium Level 139, Potassium Level 5.1H, Chloride Level 106, Carbon Dioxide Level 21, Anion Gap 12, Blood Urea Nitrogen 22H, Creatinine 1.35H, Estimat Glomerular Filtration Rate 61, BUN/Creatinine Ratio 16, Glucose Level 153H, Calcium Level 9.2, Corrected Calcium 10.2H, Phosphorus Level 4.3, Magnesium Level 2.0, Total Bilirubin 0.3, Aspartate Amino Transf (AST/SGOT) 8, Alanine Aminotransferase (ALT/SGPT) 8, Alkaline Phosphatase 57, Total Protein 7.7, Albumin 2.7L, Vancomycin Level Trough 15.4 Microbiology 02/04/22 Urine Culture - Final, Complete Klebsiella pneumoniae 02/04/22 Blood Culture - Preliminary, Resulted Staphylococcus aureus Assessment/Plan Assessment/Plan Assessment/Plan Right foot cellulitis right great toe with necrotic wound possible osteomyelitis. Patient had right lower extremity angiography with no intervention. We discussed doing a MRI to further evaluate the right foot, not able to be done due to patient size. Necrosis of right great toe seems to be worsening. Dr. Jeter reported he had another conversation with the pt regarding right great toe amputation which the patient agreed to at that time, obtained written consent form. We discussed risks and benefits of right great toe amputation, pt is agreeable with plan for amputation tomorrow morning. NPO. Continue antibiotics. BIJU MACKENZIE DO 02/08/222007: Subjective Subjective/Events-last exam Patient is sitting in bed. Patient still with pain to the right great toe. He currently states is an 8 out of 10. He has no other new complaints. He denies any nausea vomiting fever sweats chills shortness of breath or chest pain. Amandeep sewell is now stating he is agreeable to right great toe amputation authenticated procedures. Objective Exam General Appearance: No Apparent Distress, Chronically ill, Obese HEENT: Normal ENT Inspection, Moist Mucous Membranes Neck: Normal Inspection, Supple Respiratory: Chest Non Tender, No Accessory Muscle Use, No Respiratory Distress Cardiovascular: Regular Rate, Rhythm, No JVD Gastrointestinal: non tender, soft, other (obese) Extremity: No Calf Tenderness, Swelling (right foot great toe, oozing from wound medial aspect, appears to have increasing necrotic tissue. Foul smelling. ) Neurologic/Psychiatric: Alert, Oriented x3, Normal Mood/Affect Skin: Normal Color, Other (Right great toe with slight drainage, tender) Lymphatic: No Adenopathy Assessment/Plan Assessment/Plan Assessment/Plan Right foot cellulitis Product right great toe possible osteomyelitis Long-term anticoagulation Patient with right great toe that I recommend amputation of. Patient discussed risk and benefits again and wishes to proceed with right great toe amputation all indicated procedures. Patient understands need for wound care follow-up. Patient to be n.p.o. after midnight. Still at high risk due to bleeding due to anticoagulation. Consent obtained. Supervisory-Addendum Brief Verification & Attestation Participated in pt care: history, MDM, physical Personally performed: exam, history, MDM, supervision of care Care discussed with: Medical Student Procedures: n/a Results interpretation: Verified all documentation Verification and Attestation of Medical Student E/M Service A medical student performed and documented this service in my presence. I reviewed and verified all information documented by the medical student and made modifications to such information, when appropriate. I personally performed the physical exam and medical decision making. iBju Mackenzie, Feb 08, 2022,20:08 MCKENZIE WEBER Feb 08, 2022 07:56 BIJU MACKENZIE DO Feb 08, 2022 20:08
--- NOTE | 2022-02-08 08:24 | Cardiology Progress Note ---
Subjective Date Seen by Provider: Feb 08, 2022 Time Seen by Provider: 08:23 Subjective/Events-last exam Patient was seen at bedside laying down comfortably Still having pain in his toes Review of Systems General: No Chills, No Night Sweats, No Fatigue, No Malaise, No Appetite, No Other HEENT: No Head Aches, No Visual Changes, No Eye Pain, No Ear Pain, No Dysphasia, No Sinus Congestion, No Post Nasal Drip, No Sore Throat, No Other Pulmonary: No Dyspnea, No Cough, No Pleuritic Chest Pain, No Other Cardiovascular: No: Chest Pain, Palpitations, Orthopnea, Paroxysmal Noc. Dyspnea, Edema, Lt Headedness, Other Objective-Cardiology Exam Last Set of Vital Signs Vital Signs 02/07/22 02/08/22 14:37 07:42 Temp 36.6 Pulse 50 Resp 20 B/P (MAP) 122/58 (79) Pulse Ox 100 O2 Delivery Nasal Cannula O2 Flow Rate 3.00 FiO2 32 I&O Intake and Output 02/08/22 00:00 Intake Total 3996 ml Output Total 4675 ml Balance -679 ml Intake Oral 3896 ml IV Total 100 ml Output Urine Total 4675 ml General: Alert, Oriented X3, Cooperative HEENT: Atraumatic, PERRLA Neck: Supple, No JVD, No Thyromegaly Lungs: Clear to Auscultation, Normal Air Movement Heart: Regular Rate, Normal S1, Normal S2, No Murmurs Abdomen: Normal Bowel Sounds, Soft, No Tenderness, No Hepatosplenomegaly, No Masses Extremities: No Clubbing, No Cyanosis, No Edema, Normal Pulses, No Tenderness/Swelling Skin: No Rashes, No Breakdown, No Significant Lesion Neuro: Normal Gait, Normal Speech, Strength at 5/5 X4 Ext, Normal Tone, Sensation Intact Psych/Mental Status: Mental Status NL, Mood NL Results Lab Laboratory Tests 02/08/22 05:34 A/P-Cardiology Admission Diagnosis Nonhealing ulcer on the right lower extremity Hypertension Hyperlipidemia Bradycardia Assessment/Plan Nonhealing wound on the right foot. Involving the middle toe. Ultrasound was done on February 04, 2022 suggestive marked velocity elevation in the mid SFA, suggestive of severe stenosis. Peripheral angiogram was done on February 06, 2022 showing mild peripheral arterial disease nonobstructive disease. Conservative management is recommended. Receiving antibiotics. Managed by medical team Coronary artery disease, cardiac catheterization was carried out in [place] [address] Dolan showing mild coronary artery disease with normal LV function. 2D echocardiogram was done on February 07, 2022 showing normal LV size and function ejection fraction 60%, difficult study due to patient body habitus. History of paroxysmal atrial fibrillation, currently in sinus rhythm Mild sinus bradycardia. Tolerating beta-lorelei at this time. Hypertension, hypertensive heart disease with left ventricular diastolic dysfunction Maintained on amlodipine 10 mg daily, Lopressor 100 mg twice daily. Tolerating current medication well. Chronic kidney disease, starting IV fluid and monitor renal function, minimize contrast use Diabetes mellitus, followed and managed by primary care physician History of seizure disorder. History of peripheral neuropathy History of right upper extremity venous thrombosis after central line placement Bipolar disorder Fibromyalgia Hyperlipidemia with intolerance to statin. TIMUR HAWKINS MD Feb 08, 2022 08:24
[2022-02-08] MEDS: VANCOMYCIN 2000 MG/NS 500 ML IVPB IV SCH ×2 (08:58)
[2022-02-08] MEDS: GABAPENTIN 100 MG (NEURONTIN) CAP PO SCH ×3 (08:59→20:46)
[2022-02-08] MEDS: DIVALPROEX 250 MG DELAYED RELEASE (DEPAKOTE) TAB PO SCH ×3 (08:59→20:46)
[2022-02-08] MEDS: DULoxetine 20 MG (CYMBALTA) CAP PO SCH (08:59)
[2022-02-08] MEDS: EMPAGLIFLOZIN 10 MG TABLET (JARDIANCE) PO SCH (08:59)
[2022-02-08] MEDS: meTOprolol TARTRATE 50 MG (LOPRESSOR) TAB PO SCH ×2 (08:59→20:46)
[2022-02-08] MEDS: APIXABAN 5 MG (ELIQUIS) TABLET PO SCH (09:00)
[2022-02-08] MEDS: ROSUVASTATIN 20 MG (CRESTOR) TABLET PO SCH (09:00)
[2022-02-08] MEDS: amLODIPine 10 MG (NORVASC) TAB PO SCH (09:00)
[2022-02-08] MEDS: ASPIRIN E.C. 81 MG (ECOTRIN) TAB PO SCH (09:00)
[2022-02-08] MEDS: FUROSEMIDE 20 MG (LASIX) TAB PO SCH (09:00)
[2022-02-08] MEDS: BRIMONIDINE 0.2% (ALPHAGAN) OPHTH SOLN 5 ML BTL OU SCH ×2 (09:02→20:49)
--- NOTE | 2022-02-08 11:46 | Physical Therapy Progress Note ---
Therapy Progress Note Patient refuses PT tx this morning. Patient declines to get out of bed and says when asked if he wants to just do exercises in bed "not today". Will check back this afternoon if able. JUAN FRANCIS PT Feb 08, 2022 11:46
--- NOTE | 2022-02-08 15:02 | Physical Therapy Progress Note ---
Therapy Progress Note Patient refuses physical therapy again this afternoon, patient educated on the benefits of PT but continues to refuse. Will check back in the morning. JUAN FRANCIS PT Feb 08, 2022 15:02
--- NOTE | 2022-02-08 15:30 | Progress Note - Hospitalist ---
Subjective HPI/CC On Admission Date Seen by Provider: Feb 08, 2022 Time Seen by Provider: 10:25 Pt is a 57-year-old -Sy[place] male well-known to me from multiple previous admissions who presented to the emergency department toe pain. He states has been going on for a few days though he told the emergency department to started yesterday. Per ER note he had a callus removed by a vision rehabilitation therapist roughly 2 weeks ago. In the emergency department there was concern for osteomyelitis and sepsis so he was admitted for further management. This morning he reports persistent pain but no other complaints. He only participates with the exam sporadically. Sometimes he will answer questions and other times he will just stare blankly at me. This is been his baseline in the multiple admissions I have seen him. History is somewhat limited by this. Subjective/Events-last exam He is still having toe pain. He is eating breakfast. His diagnosis, prognosis, and treatment options were explained and he elected to proceed with amputation of the right great toe. Objective Exam Vital Signs Vital Signs Date Time Temp Pulse Resp B/P (MAP) Pulse Ox O2 Delivery O2 Flow Rate FiO2 02/08/22 15:14 36.4 58 20 151/76 (101) 100 Nasal Cannula 3.00 02/07/22 14:37 32 Capillary Refill : Less Than 3 Seconds General Appearance: No Apparent Distress, Obese Respiratory: No Respiratory Distress, Decreased Breath Sounds Cardiovascular: Regular Rate, Rhythm, No Murmur Gastrointestinal: Normal Bowel Sounds, Soft Extremity: Pedal Edema, Other (right great toe ulcer) Skin: Other (toe ulcer) Results/Procedures Lab Laboratory Tests 02/08/22 05:34 Patient resulted labs reviewed. Imaging: Reviewed Imaging Report Assessment/Plan Assessment and Plan Assess & Plan/Chief Complaint Osteomyelitis MRSA bacteremia Klebsiella UTI Right great toe appearance worrisome for osteomyelitis Cardiology following, peripheral angiogram without significant stenosis Surgery following, unable to obtain MRI, patient now agrees to amputation NPO at midnight for amputation tomorrow Blood cultures with MRSA, repeat today Echo without evidence of endocarditis, poor visualization of valves If blood cultures show persistent bacteremia, will plan for JULIO Continue IV antibiotics CKD stage 3a Hyperkalemia Monitor output Potassium improved T2DM Levemir Sliding scale insulin Continue home Jardiance HTN AFib Bipolar disorder BPH Continue home meds Morbid obesity Clinically significant, no acute management needs DVT ppx: Already on eliquis Hypotension, resolved Diagnosis/Problems Diagnosis/Problems (1) MRSA bacteremia Status: Acute (2) Osteomyelitis of great toe of right foot Status: Acute (3) T2DM (type 2 diabetes mellitus) Status: Acute (4) CKD (chronic kidney disease) Status: Chronic Qualifiers: Chronic kidney disease stage: stage 3 (moderate) Chronic kidney disease stage 3 subtype: stage 3a (GFR 45-59) Qualified Codes: N18.31 - Chronic kidney disease, stage 3a (5) Morbid obesity Status: Chronic GUALBERTO ROJAS MD Feb 08, 2022 15:30
[2022-02-08] MEDS: TAMSULOSIN 0.4 MG (FLOMAX) CAP PO SCH (18:12)
[2022-02-08] MEDS: MELATONIN 3 MG TABLET PO SCH (20:46)
[2022-02-08] MEDS: doxAzosin 2 MG (CARDURA) TAB PO SCH (20:46)
[2022-02-09] VITALS (11 sets, daily range): BP systolic 114–160; BP diastolic 55–84
[2022-02-09] MEDS: RT-ALBUTEROL/IPRATROPIUM 3 ML (DUONEB) VIAL INH SCH ×4 (02:43→21:16)
[2022-02-09] MEDS: inSUlin ASPART (NovoLOG) 1 UNIT/0.01 ML (CHARGE PER UNIT) SC SCH ×4 (05:58→20:56)
--- NOTE | 2022-02-09 06:42 | Progress Note - Surgery ---
MCKENZIE WEBER 02/09/22 0642: Subjective Date Seen by a Provider: Feb 09, 2022 Time Seen by a Provider: 06:38 Subjective/Events-last exam Patient resting comfortably in bed. States he has pain in his right great toe. He verbalizes agreement with plan of right great toe amputation procedure this morning. He denies fever, chills, sweats, N/V, shortness of breath and chest pain. Objective Exam Vital Signs Date Time Temp Pulse Resp B/P (MAP) Pulse Ox O2 Delivery O2 Flow Rate FiO2 02/09/22 04:08 36.8 50 18 131/84 (100) 100 Nasal Cannula 3.00 02/09/22 02:46 99 Nasal Cannula 3.00 02/09/22 01:00 43 02/08/22 23:57 36.8 66 18 169/86 (113) 97 Nasal Cannula 3.00 02/08/22 21:09 99 Nasal Cannula 3.00 02/08/22 21:04 99 Nasal Cannula 3.00 02/08/22 20:50 Nasal Cannula 3.00 02/08/22 19:15 36.8 57 20 153/68 (96) 99 Nasal Cannula 3.00 02/08/22 19:00 54 02/08/22 15:14 36.4 58 20 151/76 (101) 100 Nasal Cannula 3.00 02/08/22 14:30 Nasal Cannula 3.00 02/08/22 12:03 44 02/08/22 11:25 36.4 51 18 147/75 (99) 96 Nasal Cannula 3.00 02/08/22 08:55 Nasal Cannula 3.00 02/08/22 07:42 36.6 50 20 122/58 (79) 100 Nasal Cannula 3.00 02/08/22 07:03 48 I & O 02/09/22 07:00 Intake Total 2580 ml Output Total 2800 ml Balance -220 ml Capillary Refill : Less Than 3 Seconds General Appearance: No Apparent Distress, Chronically ill, Obese HEENT: PERRL/EOMI, Moist Mucous Membranes Neck: Normal Inspection, Supple Respiratory: Chest Non Tender, No Accessory Muscle Use, No Respiratory Distress Cardiovascular: Regular Rate, Rhythm, No JVD Peripheral Pulses: 1+ Dorsalis Pedis (R), 1+ Left Dors-Pedis (L) (See free text); 2+ Radial Pulses (R), 2+ Radial Pulses (L) Gastrointestinal: non tender, soft, other (obese) Extremity: No Calf Tenderness, No Pedal Edema, Swelling (right foot great toe, oozing from wound medial aspect, appears to have increasing necrotic tissue. Foul smelling. ) Neurologic/Psychiatric: Alert, Oriented x3, Normal Mood/Affect Skin: Normal Color, Other (Right great toe with slight drainage, tender) Lymphatic: No Adenopathy Results Lab Laboratory Tests 02/08/22 11:15: Glucometer 224H 02/08/22 15:19: Glucometer 238H 02/08/22 20:15: Glucometer 268H 02/09/22 05:18: Glucometer 154H 02/09/22 05:49: Microbiology 02/04/22 Urine Culture - Final, Complete Klebsiella pneumoniae 02/04/22 Blood Culture - Final, Complete Staphylococcus aureus Assessment/Plan Assessment/Plan Assessment/Plan Right foot cellulitis Product right great toe possible osteomyelitis Long-term anticoagulation Patient with right great toe that I recommend amputation of. Patient discussed risk and benefits again and wishes to proceed with right great toe amputation all indicated procedures this morning. Patient understands need for wound care follow-up. Still at high risk due to bleeding due to anticoagulation. Consent obtained. BIJU DE DO 02/09/22 0656: Subjective Subjective/Events-last exam No new issues. Still with pain in the right great toe. Still okay with proceeding with right great toe amputation. Denies n/v fever sweats chills shortness of breath or chest pain. Objective Exam General Appearance: No Apparent Distress, Chronically ill, Obese HEENT: PERRL/EOMI, Moist Mucous Membranes Neck: Normal Inspection, Supple Respiratory: Chest Non Tender, No Accessory Muscle Use, No Respiratory Distress Cardiovascular: Regular Rate, Rhythm, No JVD Gastrointestinal: non tender, soft, other (obese) Extremity: No Calf Tenderness, No Pedal Edema, Swelling (right foot great toe, oozing from wound medial aspect, appears to have increasing necrotic tissue. Foul smelling. ) Neurologic/Psychiatric: Alert, Oriented x3, Normal Mood/Affect Skin: Normal Color Lymphatic: No Adenopathy Assessment/Plan Assessment/Plan Assessment/Plan Right foot cellulitis right great toe possible osteomyelitis Long-term anticoagulation Patient with right great toe that I recommend amputation of. Patient discussed risk and benefits again and wishes to proceed with right great toe amputation all indicated procedures this morning. Patient understands need for wound care follow-up. Still at high risk due to bleeding due to anticoagulation. Consent obtained to OR today. Supervisory-Addendum Brief Verification & Attestation Participated in pt care: history, MDM, physical Personally performed: exam, history, MDM, supervision of care Care discussed with: Medical Student Procedures: n/a Results interpretation: Verified all documentation Verification and Attestation of Medical Student E/M Service A medical student performed and documented this service in my presence. I reviewed and verified all information documented by the medical student and made modifications to such information, when appropriate. I personally performed the physical exam and medical decision making. Biju De, Feb 09, 2022,06:56 MCKENZIE WEBER Feb 09, 2022 06:42 BIJU DE DO Feb 09, 2022 06:56
[2022-02-09 06:45] LABS: BASOPHILS # (AUTO) 0.1 10^3/uL (0.0-0.1); BASOPHILS % (AUTO) 1 % (0-10); EOSINOPHILS # (AUTO) 0.2 10^3/uL (0.0-0.3); EOSINOPHILS % (AUTO) 3 % (0-10); HEMATOCRIT 29 % (40-54); HEMOGLOBIN 8.6 g/dL (13.3-17.7); LYMPHOCYTES % (AUTO) 11 % (12-44); MEAN CORPUSCULAR HEMOGLOBIN 25 pg (25-34); MEAN CORPUSCULAR HGB CONC 29 g/dL (32-36); MEAN CORPUSCULAR VOLUME 84 fL (80-99); MEAN PLATELET VOLUME 11.6 fL (9.0-12.2); MONOCYTES # (AUTO) 1.1 10^3/uL (0.0-1.0); MONOCYTES % (AUTO) 13 % (0-12); NEUTROPHILS % (AUTO) 72 % (42-75); PLATELET COUNT 289 10^3/uL (130-400); WHITE BLOOD COUNT 8.3 10^3/uL (4.3-11.0)
[2022-02-09] MEDS ORDERED: LIDOCAINE/EPI 2% 1:200,00 (XYLOCAINE) 20 ML VIAL ONE (07:10)
[2022-02-09] MEDS ORDERED: MIDAZOLAM 2 MG/2 ML (VERSED) VIAL ONE (07:17)
[2022-02-09] MEDS ORDERED: proPOfol 200 MG/20 ML (DIPRIVAN) VIAL IV ONE (07:17)
[2022-02-09] MEDS ORDERED: fentaNYL INJ 100 MCG/2 ML AMP ONE (07:17)
[2022-02-09] MEDS: RT--FLUTICASONE/SALMETEROL 232-14 (AIRDUO RespiCLICK) IH SCH ×2 (07:45→21:16)
[2022-02-09] MEDS: UMECLIDINIUM BROMIDE (INCRUSE ELLIPTA) 7'S IH SCH (07:47)
[2022-02-09] MEDS ORDERED: LIDOCAINE PF 2% 5 ML (XYLOCAINE) VIAL ONE (08:09)
[2022-02-09] MEDS ORDERED: ONDANSETRON 4 MG/2 ML (SDV) Z0FRAN ONE (08:09)
[2022-02-09] MEDS ORDERED: SEVOFLURANE (ULTANE) 15 ML INHAL SOLN ONE (08:23)
[2022-02-09 08:49] LABS: POTASSIUM 5.4 MMOL/L (3.6-5.0)
[2022-02-09 08:50] LABS: CALCIUM 9.5 MG/DL (8.5-10.1)
[2022-02-09 08:55] LABS: CREATININE SERUM 1.32 MG/DL (0.60-1.30)
--- NOTE | 2022-02-09 09:18 | Physical Therapy Progress Note ---
Therapy Progress Note Patient in surgery this morning, will check back this afternoon. JUAN FRANCIS PT Feb 09, 2022 09:18
[2022-02-09] MEDS: amLODIPine 10 MG (NORVASC) TAB PO SCH (09:50)
[2022-02-09] MEDS: FUROSEMIDE 20 MG (LASIX) TAB PO SCH (09:50)
[2022-02-09] MEDS: ASPIRIN E.C. 81 MG (ECOTRIN) TAB PO SCH (09:50)
[2022-02-09] MEDS: DIVALPROEX 250 MG DELAYED RELEASE (DEPAKOTE) TAB PO SCH ×3 (09:50→20:55)
[2022-02-09] MEDS: ROSUVASTATIN 20 MG (CRESTOR) TABLET PO SCH (09:50)
[2022-02-09] MEDS: GABAPENTIN 100 MG (NEURONTIN) CAP PO SCH ×3 (09:50→20:55)
[2022-02-09] MEDS: DULoxetine 20 MG (CYMBALTA) CAP PO SCH (09:50)
[2022-02-09] MEDS: EMPAGLIFLOZIN 10 MG TABLET (JARDIANCE) PO SCH (09:50)
[2022-02-09] MEDS: meTOprolol TARTRATE 50 MG (LOPRESSOR) TAB PO SCH ×3 (09:51→20:55)
[2022-02-09] MEDS: BRIMONIDINE 0.2% (ALPHAGAN) OPHTH SOLN 5 ML BTL OU SCH ×2 (09:53→20:55)
--- NOTE | 2022-02-09 11:05 | Cardiology Progress Note ---
Subjective Date Seen by Provider: Feb 09, 2022 Time Seen by Provider: 11:04 Subjective/Events-last exam Patient was seen at bedside, laying down comfortably, denied any chest pain. Review of Systems General: No Chills, No Night Sweats; Fatigue; No Malaise, No Appetite, No Other HEENT: No Head Aches, No Visual Changes, No Eye Pain, No Ear Pain, No Dysphasia, No Sinus Congestion, No Post Nasal Drip, No Sore Throat, No Other Pulmonary: Dyspnea; No Cough, No Pleuritic Chest Pain, No Other Cardiovascular: No: Chest Pain, Palpitations, Orthopnea, Paroxysmal Noc. Dyspnea, Edema, Lt Headedness, Other Objective-Cardiology Exam Last Set of Vital Signs Vital Signs 02/07/22 02/09/22 02/09/22 02/09/22 02/09/22 14:37 08:07 09:10 09:20 09:30 Temp 36.3 Pulse 51 Resp 20 B/P (MAP) 135/79 (97) Pulse Ox 96 O2 Delivery Room Air O2 Flow Rate 4.00 FiO2 32 I&O Intake and Output 02/09/22 00:00 Intake Total 3380 ml Output Total 3150 ml Balance 230 ml Intake Oral 2710 ml IV Total 670 ml Output Urine Total 3150 ml # Voids 1 General: Alert, Oriented X3, Cooperative HEENT: Atraumatic, PERRLA Neck: Supple, No JVD, No Thyromegaly Lungs: Clear to Auscultation, Normal Air Movement Heart: Regular Rate, Normal S1, Normal S2, No Murmurs Abdomen: Normal Bowel Sounds, Soft, No Tenderness, No Hepatosplenomegaly, No Masses Extremities: No Clubbing, No Cyanosis, No Edema, Normal Pulses, No Tenderness/Swelling Skin: No Rashes, No Breakdown, No Significant Lesion Neuro: Normal Gait, Normal Speech, Strength at 5/5 X4 Ext, Normal Tone, Sensation Intact Psych/Mental Status: Mental Status NL, Mood NL Results Lab Laboratory Tests 02/09/22 05:49 A/P-Cardiology Admission Diagnosis Nonhealing ulcer on the right lower extremity Hypertension Hyperlipidemia Bradycardia Assessment/Plan Nonhealing wound on the right foot. Involving the middle toe. Ultrasound was done on February 04, 2022 suggestive marked velocity elevation in the mid SFA, suggestive of severe stenosis. Peripheral angiogram was done on February 06, 2022 showing mild peripheral arterial disease nonobstructive disease. MRSA on blood culture, underwent amputation with debridement with Dr. De Continue on antibiotics. Hyperkalemia, monitor electrolytes. Coronary artery disease, cardiac catheterization was carried out in [place] [address] Dolan showing mild coronary artery disease with normal LV function. 2D echocardiogram was done on February 07, 2022 showing normal LV size and function ejection fraction 60%, difficult study due to patient body habitus. History of paroxysmal atrial fibrillation, currently in sinus rhythm Mild sinus bradycardia. Tolerating beta-lorelei at this time. Hypertension, hypertensive heart disease with left ventricular diastolic dysfunction Maintained on amlodipine 10 mg daily, Sukumar I decreased Lopressor to 50 mg twice daily due to bradycardia. Chronic kidney disease, starting IV fluid and monitor renal function, minimize contrast use Diabetes mellitus, followed and managed by primary care physician History of seizure disorder. History of peripheral neuropathy History of right upper extremity venous thrombosis after central line placement Bipolar disorder Fibromyalgia Hyperlipidemia with intolerance to statin. TIMUR HAWKINS MD Feb 09, 2022 11:05
--- NOTE | 2022-02-09 11:43 | Progress Note - Hospitalist ---
Subjective HPI/CC On Admission Date Seen by Provider: Feb 09, 2022 Time Seen by Provider: 10:45 Pt is a 57-year-old -[place]i male well-known to me from multiple previous admissions who presented to the emergency department toe pain. He states has been going on for a few days though he told the emergency department to started yesterday. Per ER note he had a callus removed by a supervisor carbon electrodes roughly 2 weeks ago. In the emergency department there was concern for osteomyelitis and sepsis so he was admitted for further management. This morning he reports persistent pain but no other complaints. He only participates with the exam sporadically. Sometimes he will answer questions and other times he will just stare blankly at me. This is been his baseline in the multiple admissions I have seen him. History is somewhat limited by this. Subjective/Events-last exam He had his amputation this morning. He is doing well postoperatively. He is ordering food. He denies pain. He says his foot is numb. Objective Exam Vital Signs Vital Signs Date Time Temp Pulse Resp B/P (MAP) Pulse Ox O2 Delivery O2 Flow Rate FiO2 02/09/22 09:30 Room Air 02/09/22 09:20 36.3 20 135/79 (97) 96 02/09/22 09:10 4.00 02/09/22 08:07 51 02/07/22 14:37 32 Capillary Refill : Less Than 3 Seconds General Appearance: No Apparent Distress, Obese Respiratory: No Respiratory Distress, Wheezing Cardiovascular: No Murmur, Irregularly Irregular Gastrointestinal: Normal Bowel Sounds, Soft Extremity: Normal Inspection, Pedal Edema, Other (right foot bandaged) Neurologic/Psychiatric: Alert, Normal Mood/Affect Results/Procedures Lab Laboratory Tests 02/09/22 05:49 Patient resulted labs reviewed. Imaging: Reviewed Imaging Report Assessment/Plan Assessment and Plan Assess & Plan/Chief Complaint Osteomyelitis MRSA bacteremia Klebsiella UTI Right great toe appearance worrisome for osteomyelitis Cardiology following, peripheral angiogram without significant stenosis Surgery following, s/p right great toe amputation 02/09, surgical cultures pending Blood cultures with MRSA, repeat cultures pending Echo without evidence of endocarditis, poor visualization of valves If blood cultures show persistent bacteremia, will plan for JULIO Continue IV antibiotics CKD stage 3a Hyperkalemia Monitor output Continue Lasix T2DM Levemir Sliding scale insulin Continue home Jardiance HTN AFib Bipolar disorder BPH Continue home meds Morbid obesity Clinically significant, no acute management needs DVT ppx: Resume Eliquis tomorrow morning per surgery Hypotension, resolved Diagnosis/Problems Diagnosis/Problems (1) MRSA bacteremia Status: Acute (2) Osteomyelitis of great toe of right foot Status: Acute (3) T2DM (type 2 diabetes mellitus) Status: Acute (4) CKD (chronic kidney disease) Status: Chronic Qualifiers: Chronic kidney disease stage: stage 3 (moderate) Chronic kidney disease stage 3 subtype: stage 3a (GFR 45-59) Qualified Codes: N18.31 - Chronic kidney disease, stage 3a (5) Morbid obesity Status: Chronic GUALBERTO ROJAS MD Feb 09, 2022 11:43
--- NOTE | 2022-02-09 14:36 | OPERATIVE REPORT ---
DATE OF SERVICE: 02/09/2022 PREOPERATIVE DIAGNOSIS: Necrotic right great toe probable osteomyelitis. POSTOPERATIVE DIAGNOSIS: Necrotic right great toe probable osteomyelitis. PROCEDURE: Right great toe amputation. SURGEON: Biju De DO ANESTHESIA: Per AUTO SERVICE INSTRUCTOR. ESTIMATED BLOOD LOSS: Minimal. COMPLICATIONS: None. INDICATIONS: The patient is a 57-year-old male with a right great toe that is infected and necrotic. He probably has osteomyelitis as well. MRI was unable to be obtained due to the patient's weight. The patient is agreeable to the procedure. He understands risks and benefits. Consent was signed in the chart. DESCRIPTION OF PROCEDURE: The patient was taken to the operating suite, was prepped and draped in sterile fashion. Timeout was performed. A 15 blade scalpel was used to make an incision around the base of the great toe. Cautery was used to dissect down through the skin and subcutaneous tissues and dividing the muscle all the way down to the metatarsal head where the toe was divided. The metatarsal head of the first ray had a normal appearance. There was some purulent material in the subcutaneous tissues of the toe, which culture was obtained. Once removed, the wound was irrigated with copious amounts of irrigation and then hemostasis was achieved, and wound was then packed with iodoform. Sterile bandage was applied. The patient tolerated procedure well without any complications, taken to recovery room in stable condition. Job ID: [id number] DocumentID: [id number] Dictated Date: 02/09/2022 08:26:51 Moth Proofer Date: 02/09/2022 14:36:21 Dictated By: BIJU DE DO
--- NOTE | 2022-02-09 15:02 | Physical Therapy Progress Note ---
Therapy Progress Note Attempted to see patient for treatment/re-evaluation post foot surgery this morning. Nurse reports patient is resting post surgery and recommends hold till am. Will attempt treatment again on 02-10-22 and progress patient per patient tolerance. ELIZABETH HAYES PT Feb 09, 2022 15:02
[2022-02-09] MEDS: TAMSULOSIN 0.4 MG (FLOMAX) CAP PO SCH (16:57)
[2022-02-09] MEDS ORDERED: ACETAMINOPHEN 325 MG TABLET PO PRN (19:15)
[2022-02-09] MEDS: doxAzosin 2 MG (CARDURA) TAB PO SCH (20:55)
[2022-02-09] MEDS: MELATONIN 3 MG TABLET PO SCH (20:55)
[2022-02-10] VITALS (8 sets, daily range): BP systolic 129–154; BP diastolic 56–89
[2022-02-10] MEDS: RT-ALBUTEROL/IPRATROPIUM 3 ML (DUONEB) VIAL INH SCH ×4 (02:02→22:20)
[2022-02-10 05:33] LABS: BASOPHILS # (AUTO) 0.1 10^3/uL (0.0-0.1); BASOPHILS % (AUTO) 1 % (0-10); EOSINOPHILS # (AUTO) 0.2 10^3/uL (0.0-0.3); EOSINOPHILS % (AUTO) 2 % (0-10); HEMATOCRIT 28 % (40-54); HEMOGLOBIN 8.4 g/dL (13.3-17.7); LYMPHOCYTES # (AUTO) 1.1 10^3/uL (1.0-4.0); LYMPHOCYTES % (AUTO) 13 % (12-44); MEAN CORPUSCULAR HEMOGLOBIN 25 pg (25-34); MEAN CORPUSCULAR HGB CONC 30 g/dL (32-36); MEAN CORPUSCULAR VOLUME 83 fL (80-99); MEAN PLATELET VOLUME 11.1 fL (9.0-12.2); MONOCYTES # (AUTO) 1.1 10^3/uL (0.0-1.0); MONOCYTES % (AUTO) 13 % (0-12); NEUTROPHILS # (AUTO) 5.9 10^3/uL (1.8-7.8); NEUTROPHILS % (AUTO) 70 % (42-75); PLATELET COUNT 272 10^3/uL (130-400); WHITE BLOOD COUNT 8.4 10^3/uL (4.3-11.0)
[2022-02-10 05:45] LABS: POTASSIUM 5.7 MMOL/L (3.6-5.0)
[2022-02-10 05:47] LABS: CALCIUM 9.1 MG/DL (8.5-10.1)
[2022-02-10 05:51] LABS: CREATININE SERUM 1.5 MG/DL (0.60-1.30)
[2022-02-10 05:53] LABS: MAGNESIUM 2.1 MG/DL (1.6-2.4)
[2022-02-10] MEDS ORDERED: SODIUM POLYSTYRENE POWDER 15 GM BOTTLE PO ONE (06:15)
[2022-02-10] MEDS: inSUlin ASPART (NovoLOG) 1 UNIT/0.01 ML (CHARGE PER UNIT) SC SCH ×6 (06:58→20:36)
--- NOTE | 2022-02-10 06:58 | Progress Note - Surgery ---
MCKENZIE WEBER 02/10/22 0658: Subjective Date Seen by a Provider: Feb 10, 2022 Time Seen by a Provider: 06:53 Subjective/Events-last exam Patient resting comfortably in bed. States his right great toe pain is currently 8/0. States he is eating and drinking normally. He denies fever, chills, chest pain, shortness of breath, N/V. Objective Exam Vital Signs Date Time Temp Pulse Resp B/P (MAP) Pulse Ox O2 Delivery O2 Flow Rate FiO2 02/10/22 03:28 36.8 57 20 131/69 (89) 96 Nasal Cannula 2.00 02/10/22 02:39 98 Nasal Cannula 2.00 02/10/22 00:00 37.0 56 20 130/63 (85) 98 Nasal Cannula 2.00 02/09/22 21:16 94 Nasal Cannula 2.00 02/09/22 20:45 Nasal Cannula 2.00 02/09/22 19:57 37.1 65 18 114/55 (74) 97 Nasal Cannula 2.00 02/09/22 16:13 37.0 66 20 143/70 (94) 100 Nasal Cannula 2.00 02/09/22 15:24 94 Nasal Cannula 2.00 02/09/22 11:42 36.4 60 18 160/80 (106) 93 Nasal Cannula 2.00 02/09/22 09:30 Room Air 02/09/22 09:20 36.3 20 135/79 (97) 96 Room Air 02/09/22 09:15 Room Air 02/09/22 09:10 13 130/77 (94) 96 OxyMask 4.00 02/09/22 09:00 14 140/70 (93) 99 OxyMask 4.00 02/09/22 09:00 OxyMask 4.00 02/09/22 08:50 20 140/72 (94) 100 OxyMask 4.00 02/09/22 08:45 OxyMask 8 02/09/22 08:40 17 143/73 (96) 98 OxyMask 8 02/09/22 08:32 OxyMask 8 02/09/22 08:32 36.1 20 134/80 (98) 99 OxyMask 8 02/09/22 08:07 36.7 51 18 125/70 (88) 100 Nasal Cannula 3.00 02/09/22 08:00 Nasal Cannula 3.00 02/09/22 07:05 52 I & O 02/10/22 07:00 Intake Total 2240 ml Output Total 2575 ml Balance -335 ml Capillary Refill : Less Than 3 Seconds General Appearance: No Apparent Distress, Obese HEENT: PERRL/EOMI, Moist Mucous Membranes Neck: Normal Inspection, Supple Respiratory: Chest Non Tender, Lungs Clear, Normal Breath Sounds, No Accessory Muscle Use, No Respiratory Distress Cardiovascular: Regular Rate, Rhythm, No Gallop, No Murmur Peripheral Pulses: 1+ Dorsalis Pedis (R), 1+ Left Dors-Pedis (L) (See free marcelo t); 2+ Radial Pulses (R), 2+ Radial Pulses (L) Gastrointestinal: normal bowel sounds, non tender, soft, other (obese) Extremity: Non Tender, No Calf Tenderness, Other (Wound appears to be healing well. No significant surrounding erythema, swelling or drainage. ) Neurologic/Psychiatric: Alert, Normal Mood/Affect Skin: Normal Color, Warm/Dry Lymphatic: No Adenopathy Results Lab Laboratory Tests 02/09/22 10:57: Glucometer 170H 02/09/22 15:45: Glucometer 242H 02/09/22 20:28: Glucometer 230H 02/10/22 05:10: White Blood Count 8.4, Red Blood Count 3.40L, Hemoglobin 8.4L, Hematocrit 28L, Mean Corpuscular Volume 83, Mean Corpuscular Hemoglobin 25, Mean Corpuscular Hemoglobin Concent 30L, Red Cell Distribution Width 20.4H, Platelet Count 272, Mean Platelet Volume 11.1, Immature Granulocyte % (Auto) 1, Neutrophils (%) (Auto) 70, Lymphocytes (%) (Auto) 13, Monocytes (%) (Auto) 13H, Eosinophils (%) (Auto) 2, Basophils (%) (Auto) 1, Neutrophils # (Auto) 5.9, Lymphocytes # (Auto) 1.1, Monocytes # (Auto) 1.1H, Eosinophils # (Auto) 0.2, Basophils # (Auto) 0.1, Immature Granulocyte # (Auto) 0.1, Sodium Level 137, Potassium Level 5.7H, Chloride Level 107, Carbon Dioxide Level 22, Anion Gap 8, Blood Urea Nitrogen 27H, Creatinine 1.50H, Estimat Glomerular Filtration Rate 54, BUN/Creatinine Ratio 18, Glucose Level 186H, Calcium Level 9.1, Magnesium Level 2.1 02/10/22 05:28: Glucometer 214H Microbiology 02/09/22 Gram Stain, Resulted Pending 02/09/22 Anaerobic Culture, Resulted Pending 02/09/22 Surgical Culture - Preliminary, Resulted 02/09/22 Fungal Culture 1, Resulted Pending 02/08/22 MRSA Screen - Final, Complete MRSA not isolated 02/08/22 Blood Culture - Preliminary, Resulted No growth 02/04/22 Urine Culture - Final, Complete Klebsiella pneumoniae Assessment/Plan Assessment/Plan Assessment/Plan Right foot cellulitis right great toe possible osteomyelitis Long-term anticoagulation S/p right great toe amputation, patient pain controlled. Wound appears to be healing well. No significant erythema, swelling or drainage. Urine output 0.13 ml/kg/hr, which has decreased from yesterday's output of 0.68 ml/kg/hr. Potassium elevated at 5.7, he was given Kayexalate, IV fluids and diuretics. Continue abx and wound management. BIJU DE DO 02/10/221921: Subjective Subjective/Events-last exam Patient states he is doing okay. His pain is under control. Tolerated dressing change. No other complaints at this time. Denies any nausea vomiting fever sweats chills shortness of breath or chest pain. Objective Exam General Appearance: No Apparent Distress, Obese HEENT: PERRL/EOMI, Moist Mucous Membranes Neck: Normal Inspection, Supple Respiratory: Chest Non Tender, No Accessory Muscle Use, No Respiratory Distress Cardiovascular: Regular Rate, Rhythm, No JVD Gastrointestinal: non tender, soft, other (obese) Extremity: Non Tender, No Calf Tenderness, Other (Right great toe amputated open wound no signs of infection no purulent drainage clean and dry) Neurologic/Psychiatric: Alert, Oriented x3 Skin: Normal Color, Warm/Dry Lymphatic: No Adenopathy Assessment/Plan Assessment/Plan Assessment/Plan Status post right great toe amputation. Continue with daily wound care. Pain control. On IV antibiotics. Supervisory-Addendum Brief Verification & Attestation Participated in pt care: history, MDM, physical Personally performed: exam, history, MDM, supervision of care Care discussed with: Medical Student Procedures: n/a Results interpretation: Verified all documentation Verification and Attestation of Medical Student E/M Service A medical student performed and documented this service in my presence. I reviewed and verified all information documented by the medical student and made modifications to such information, when appropriate. I personally performed the physical exam and medical decision making. Biju De, Feb 10, 2022,19:22 MCKENZIE WEBER Feb 10, 2022 06:58 BIJU DE DO Feb 10, 2022 19:22
[2022-02-10] MEDS: RT--FLUTICASONE/SALMETEROL 232-14 (AIRDUO RespiCLICK) IH SCH ×2 (08:08→22:21)
[2022-02-10] MEDS: UMECLIDINIUM BROMIDE (INCRUSE ELLIPTA) 7'S IH SCH (08:08)
[2022-02-10] MEDS: FUROSEMIDE 20 MG (LASIX) TAB PO SCH (08:49)
[2022-02-10] MEDS: amLODIPine 10 MG (NORVASC) TAB PO SCH (08:49)
[2022-02-10] MEDS: VANCOMYCIN 2000 MG/NS 500 ML IVPB IV SCH ×2 (08:49)
[2022-02-10] MEDS: EMPAGLIFLOZIN 10 MG TABLET (JARDIANCE) PO SCH (08:50)
[2022-02-10] MEDS: ROSUVASTATIN 20 MG (CRESTOR) TABLET PO SCH (08:50)
[2022-02-10] MEDS: DIVALPROEX 250 MG DELAYED RELEASE (DEPAKOTE) TAB PO SCH ×3 (08:50→20:36)
[2022-02-10] MEDS: meTOprolol TARTRATE 50 MG (LOPRESSOR) TAB PO SCH ×2 (08:50→20:36)
[2022-02-10] MEDS: DULoxetine 20 MG (CYMBALTA) CAP PO SCH (08:50)
[2022-02-10] MEDS: ASPIRIN E.C. 81 MG (ECOTRIN) TAB PO SCH (08:50)
[2022-02-10] MEDS: GABAPENTIN 100 MG (NEURONTIN) CAP PO SCH ×3 (08:50→20:36)
[2022-02-10] MEDS: BRIMONIDINE 0.2% (ALPHAGAN) OPHTH SOLN 5 ML BTL OU SCH ×2 (08:52→20:37)
--- NOTE | 2022-02-10 09:00 | Cardiology Progress Note ---
Subjective Date Seen by Provider: Feb 10, 2022 Time Seen by Provider: 08:57 Subjective/Events-last exam Patient was seen at bedside, feeling well. Asking for breakfast. Review of Systems General: No Chills, No Night Sweats, No Fatigue, No Malaise, No Appetite, No Other HEENT: No Head Aches, No Visual Changes, No Eye Pain, No Ear Pain, No Dysphasia, No Sinus Congestion, No Post Nasal Drip, No Sore Throat, No Other Pulmonary: No Dyspnea, No Cough, No Pleuritic Chest Pain, No Other Cardiovascular: No: Chest Pain, Palpitations, Orthopnea, Paroxysmal Noc. Dyspnea, Edema, Lt Headedness, Other Objective-Cardiology Exam Last Set of Vital Signs Vital Signs 02/10/22 02/10/22 02/10/22 07:42 08:12 08:19 Temp 36.9 Pulse 66 Resp 18 B/P (MAP) 149/76 (100) Pulse Ox 97 O2 Delivery Nasal Cannula O2 Flow Rate 2.00 FiO2 28 I&O Intake and Output 02/10/22 00:00 Intake Total 2240 ml Output Total 2650 ml Balance -410 ml Intake Oral 2240 ml Output Urine Total 2650 ml General: Alert, Oriented X3, Cooperative HEENT: Atraumatic, PERRLA Neck: Supple, No JVD, No Thyromegaly Lungs: Clear to Auscultation, Normal Air Movement Heart: Regular Rate, Normal S1, Normal S2, No Murmurs Abdomen: Normal Bowel Sounds, Soft, No Tenderness, No Hepatosplenomegaly, No Masses Extremities: No Clubbing, No Cyanosis, No Edema, Normal Pulses, No Tenderness/Swelling Skin: No Rashes, No Breakdown, No Significant Lesion Neuro: Normal Gait, Normal Speech, Strength at 5/5 X4 Ext, Normal Tone, Sensation Intact Psych/Mental Status: Mental Status NL, Mood NL Results Lab Laboratory Tests 02/10/22 05:10 A/P-Cardiology Admission Diagnosis Nonhealing ulcer on the right lower extremity Hypertension Hyperlipidemia Bradycardia Assessment/Plan Nonhealing wound on the right foot. Involving the middle toe. Ultrasound was done on February 04, 2022 suggestive marked velocity elevation in the mid SFA, suggestive of severe stenosis. Peripheral angiogram was done on February 06, 2022 showing mild peripheral arterial disease nonobstructive disease. MRSA on blood culture, underwent amputation with debridement with Dr. De on February 09, 2022 Continue on antibiotics. Hyperkalemia, I gave him Kayexalate. Receiving IV fluid and diuretics. Continue to monitor potassium level Coronary artery disease, cardiac catheterization was carried out in [place] [address] Dolan showing mild coronary artery disease with normal LV function. 2D echocardiogram was done on February 07, 2022 showing normal LV size and function ejection fraction 60%, difficult study due to patient body habitus. History of paroxysmal atrial fibrillation, currently in sinus rhythm Mild sinus bradycardia. Tolerating beta-lorelei at this time. Hypertension, hypertensive heart disease with left ventricular diastolic d ysfunction Maintained on amlodipine 10 mg daily, Sukumar, I decreased Lopressor to 50 mg twice daily due to bradycardia. Chronic kidney disease, starting IV fluid and monitor renal function, minimize contrast use Diabetes mellitus, followed and managed by primary care physician History of seizure disorder. History of peripheral neuropathy History of right upper extremity venous thrombosis after central line placement Bipolar disorder Fibromyalgia Hyperlipidemia with intolerance to statin. TIMUR HAWKINS MD Feb 10, 2022 09:00
[2022-02-10] MEDS: APIXABAN 5 MG (ELIQUIS) TABLET PO SCH ×2 (09:26→20:36)
[2022-02-10] MEDS ORDERED: VANCOMYCIN INJECTION 0.1 MG in NS (IVPB) 250 ML IV SCH (12:00)
--- NOTE | 2022-02-10 14:04 | Physical Therapy Evaluation ---
PT Evaluation-General Medical Diagnosis Admission Date Feb 04, 2022 at 17:45 Medical Diagnosis: Osteomyelitis right great toe Onset Date: Feb 04, 2022 Therapy Diagnosis Therapy Diagnosis: gait deficit, strength deficit Height/Weight Height (Feet): 6 Height (Inches): 2 Weight (Pounds): 250 Weight (Ounces): 0.0 Precautions Precautions/Isolations: Fall Prevention, Standard Precautions Weight Bear Status Right Lower Extremity: Right Partial Weight Bearing Left Lower Extremity: Left Full Weight Bearing Referral Physician: Raisa Cuevas Reason for Referral: Evaluation/Treatment Medical History Pertinent Medical History: Arthritis, CAD, CVA, DM, Diverticulitis, GERD, HTN, [place], Neuropathy, PVD, Rheumatoid Arthritis, Smoking Reviewed History: Yes Social History Home: [facility] PT Steps Into Home: 0 Prior Prior Level of Function SCALE: Activities may be completed with or without assistive devices. 9-Fxhynrhkvu-frtvgie completes the activity by him/herself with no assistance from a helper. 5-Set-up or Clean-up Assistance-helper sets up or cleans up; patient completes activity. Union assists only prior to or following the activity. 4-Supervision or Touching Assistance-helper provides verbal cues and/or touching/steadying and/or contact guard assistance as patient completes activity. Assistance may be provided throughout the activity or intermittently. 3-Partial/Moderate Assistance-helper does LESS THAN HALF the effort. Union lifts, holds or supports trunk or limbs, but provides less than half the effort. 2-Substantial/Maximal Assistance-helper does MORE THAN HALF the effort. Union lifts or holds trunk or limbs and provides more than half the effort. 5-Zjqrempnl-ottxym does ALL the effort. Patient does none of the effort to complete the activity. Or, the assistance of 2 or more helpers is required for the patient to complete the activity. If activity was not attempted, code reason: 7-Patient Refused. 9-Not Applicable-not attempted and the patient did not perform the activity before the current illness, exacerbation or injury. 10-Not Attempted due to Environmental Limitations-(lack of equipment, weather restraints, etc.). 88-Not Attempted due to Medical Conditions or Safety Concerns. Bed Mobility: 6 Transfers (B,C,W/C): 6 Gait: 6 Indoor Mobility (Ambulation): Needed Some Help Patient reports prior to admission he was independent with all bed mobility, transfers and needed assistance for gait, but used a FWW. Nurse reports prior to evaluation that he was told the patient required total assistance for all mobility and required use of a jose guadalupe lift to the chair. PT Evaluation-Current Subjective Patient lying supine in bed upon PT arrival, agreeable to treatment. Patient has urinal placed between his thighs, however still presents incontinent of urine in bed. Objective Patient Orientation: Person, Place Attachments: Oxygen ROM/Strength ROM Lower Extremities Right ankle foot limited in all planes. Right knee, hip and Left LE WFLs all planes Strength Lower Extremities 3/5 bilaterally all planes via visual observation Integumentary/Posture Bowel Incontinence: Yes Bladder Incontinence: Yes Sensory Vision: Wears Glasses Hearing: Functional Sensation Right Upper Extremit: Impaired Sensation Left Upper Extremity: Impaired Sensation Right Lower Extremit: Impaired Sensation Left Lower Extremity: Impaired Transfers Roll Left to Right (QC): 3 Sit to Lying (QC): 3 Lying to Sitting/Side of Bed(Q: 3 Sit to Stand (QC): 3 Chair/Bks-ut-Sgxtw Xfer(QC): 3 Gait Does the Patient Walk?: No and Walking Goal IS indicated Mode of Locomotion: Both Anticipated Mode of Locomotion: Both Balance Sitting Static: Good Sitting Dynamic: Good Standing Static: Poor Standing Dynamic: Poor Assessment/Needs Patient tolerated treatment fair. Hesitant to activity especially out of bed activity prior to evaluation. Patient performs all observed bed mobility and transfers with min A. He placed minimal weight through right LE, however was able to maintain heel only weight bearing ~ 50% of the transfer. Patient performs SPT to the chair with min A, FWW and frequent verbal cues for safety and performance. Upon standing at bedside, patients back and rectum were cleaned by SODA FOUNTAIN OPERATOR. Patient in the chair post treatment with all needs met, nursing notified, call light in reach, chair alarm activated and SODA FOUNTAIN OPERATOR/Nurse in the room. Rehab Potential: Fair PT Prison Goals Prison Goals PT Fermenting Cellar Dropper Goals Time Frame: Feb 11, 2022 Roll Left & Right (QC): 6 Sit to Lying (QC): 6 Lying-Sitting on Side/Bed(QC): 6 Sit to Stand (QC): 6 Chair/Bto-xr-Tubzs Xfer(QC): 5 Toilet Transfer (QC): 5 Walk 10 feet (QC): 4 Walk 50ft with 2 Turns (QC): 3 PT Plan Problem List Problem List: Activity Tolerance, Functional Strength, Safety, Balance, Gait, Transfer, Bed Mobility, ROM Treatment/Plan Treatment Plan: Continue Plan of Care Treatment Plan: Bed Mobility, Functional Activity Pancho, Functional Strength, Gait Treatment Duration: Feb 11, 2022 Frequency: 6 times per week Estimated Hrs Per Day: .25 hour per day Patient and/or Family Agrees t: Yes Safety Risks/Education Patient Education: Transfer Techniques Teaching Recipient: Patient Teaching Methods: Demonstration, Discussion Response to Teaching: Reinforcement Needed Time/GCodes Time In: 1315 Time Out: 1345 Total Billed Treatment Time: 30 Total Billed Treatment Visit, VISHAL Serrano JOHN A PT Feb 10, 2022 14:04
--- NOTE | 2022-02-10 17:13 | Progress Note - Hospitalist ---
Subjective HPI/CC On Admission Date Seen by Provider: Feb 10, 2022 Time Seen by Provider: 10:55 Pt is a 57-year-old -Irish male well-known to me from multiple previous admissions who presented to the emergency department toe pain. He states has been going on for a few days though he told the emergency department to started yesterday. Per ER note he had a callus removed by a mortar maker roughly 2 weeks ago. In the emergency department there was concern for osteomyelitis and sepsis so he was admitted for further management. This morning he reports persistent pain but no other complaints. He only participates with the exam sporadically. Sometimes he will answer questions and other times he will just stare blankly at me. This is been his baseline in the multiple admissions I have seen him. History is somewhat limited by this. Subjective/Events-last exam He is doing better. He denies pain. He denies shortness of breath. His neck pain is better. Objective Exam Vital Signs Vital Signs Date Time Temp Pulse Resp B/P (MAP) Pulse Ox O2 Delivery O2 Flow Rate FiO2 02/10/22 15:54 36.7 101 18 132/70 (90) 100 Nasal Cannula 2.00 02/10/22 08:19 28 Capillary Refill : Less Than 3 Seconds General Appearance: No Apparent Distress, Obese Respiratory: Lungs Clear, No Respiratory Distress Cardiovascular: Regular Rate, Rhythm, No Murmur Gastrointestinal: Normal Bowel Sounds, Soft Extremity: No Inflammation; Swelling, Other (right great toe amputation with bandage in place) Neurologic/Psychiatric: Alert, Normal Mood/Affect Results/Procedures Lab Laboratory Tests 02/10/22 05:10 Patient resulted labs reviewed. Imaging: Reviewed Imaging Report Assessment/Plan Assessment and Plan Assess & Plan/Chief Complaint Osteomyelitis MRSA bacteremia Klebsiella UTI Right great toe appearance worrisome for osteomyelitis Cardiology following, peripheral angiogram without significant stenosis Surgery following, s/p right great toe amputation 02/09, surgical cultures with Staph aureus and Proteus Blood cultures with MRSA Echo without evidence of endocarditis, poor visualization of valves Repeat blood cultures without MRSA, one set with coag negative Staph (likely contaminant) Continue Vancomycin Add Rocephin, already completed course of Cefepime Likely discharge tomorrow to [facility] with continued IV Vancomycin and wound care CKD stage 3a Hyperkalemia Monitor output Continue Lasix Given Kayexalate T2DM Increase Levemir Add mealtime Novolog Sliding scale insulin B Continue home Jardiance HTN AFib Bipolar disorder BPH Continue home meds Morbid obesity Clinically significant, no acute management needs DVT ppx: Eliquis Hypotension, resolved Diagnosis/Problems Diagnosis/Problems (1) MRSA bacteremia Status: Acute (2) Osteomyelitis of great toe of right foot Status: Acute (3) T2DM (type 2 diabetes mellitus) Status: Acute (4) CKD (chronic kidney disease) Status: Chronic Qualifiers: Chronic kidney disease stage: stage 3 (moderate) Chronic kidney disease stage 3 subtype: stage 3a (GFR 45-59) Qualified Codes: N18.31 - Chronic kidney disease, stage 3a (5) Morbid obesity Status: Chronic GUALBERTO ROJAS MD Feb 10, 2022 17:13
[2022-02-10] MEDS ORDERED: cefTRIAXone 2,000 MG in NS (IVPB) 50 ML IV ONE (17:15)
[2022-02-10] MEDS: TAMSULOSIN 0.4 MG (FLOMAX) CAP PO SCH (17:34)
[2022-02-10] MEDS: doxAzosin 2 MG (CARDURA) TAB PO SCH (20:36)
[2022-02-10] MEDS: MELATONIN 3 MG TABLET PO SCH (20:36)
[2022-02-11] MEDS: RT-ALBUTEROL/IPRATROPIUM 3 ML (DUONEB) VIAL INH SCH ×2 (02:33→10:53)
[2022-02-11 04:10] VITALS: BP 153/77
[2022-02-11 05:33] LABS: BASOPHILS # (AUTO) 0.1 10^3/uL (0.0-0.1); BASOPHILS % (AUTO) 1 % (0-10); EOSINOPHILS # (AUTO) 0.2 10^3/uL (0.0-0.3); EOSINOPHILS % (AUTO) 3 % (0-10); HEMATOCRIT 29 % (40-54); HEMOGLOBIN 8.6 g/dL (13.3-17.7); LYMPHOCYTES # (AUTO) 1.2 10^3/uL (1.0-4.0); LYMPHOCYTES % (AUTO) 16 % (12-44); MEAN CORPUSCULAR HEMOGLOBIN 25 pg (25-34); MEAN CORPUSCULAR HGB CONC 30 g/dL (32-36); MEAN CORPUSCULAR VOLUME 83 fL (80-99); MEAN PLATELET VOLUME 11.5 fL (9.0-12.2); MONOCYTES % (AUTO) 13 % (0-12); NEUTROPHILS # (AUTO) 5.3 10^3/uL (1.8-7.8); NEUTROPHILS % (AUTO) 68 % (42-75); PLATELET COUNT 268 10^3/uL (130-400); WHITE BLOOD COUNT 7.8 10^3/uL (4.3-11.0)
[2022-02-11] MEDS: inSUlin ASPART (NovoLOG) 1 UNIT/0.01 ML (CHARGE PER UNIT) SC SCH ×3 (06:02→11:17)
[2022-02-11 06:04] LABS: CALCIUM 9.3 MG/DL (8.5-10.1)
[2022-02-11 06:09] LABS: CREATININE SERUM 1.44 MG/DL (0.60-1.30)
[2022-02-11 06:11] LABS: MAGNESIUM 2.1 MG/DL (1.6-2.4)
[2022-02-11 07:48] VITALS: BP 138/72
[2022-02-11] MEDS: ASPIRIN E.C. 81 MG (ECOTRIN) TAB PO SCH (08:15)
[2022-02-11] MEDS: GABAPENTIN 100 MG (NEURONTIN) CAP PO SCH ×2 (08:15→12:32)
[2022-02-11] MEDS: DIVALPROEX 250 MG DELAYED RELEASE (DEPAKOTE) TAB PO SCH ×2 (08:16→12:32)
[2022-02-11] MEDS: DULoxetine 20 MG (CYMBALTA) CAP PO SCH (08:16)
[2022-02-11] MEDS: meTOprolol TARTRATE 50 MG (LOPRESSOR) TAB PO SCH (08:16)
[2022-02-11] MEDS: amLODIPine 10 MG (NORVASC) TAB PO SCH (08:16)
[2022-02-11] MEDS: FUROSEMIDE 20 MG (LASIX) TAB PO SCH (08:16)
[2022-02-11] MEDS: ROSUVASTATIN 20 MG (CRESTOR) TABLET PO SCH (08:16)
[2022-02-11] MEDS: APIXABAN 5 MG (ELIQUIS) TABLET PO SCH (08:16)
[2022-02-11] MEDS: EMPAGLIFLOZIN 10 MG TABLET (JARDIANCE) PO SCH (08:16)
[2022-02-11] MEDS: BRIMONIDINE 0.2% (ALPHAGAN) OPHTH SOLN 5 ML BTL OU SCH (08:18)
[2022-02-11] MEDS ORDERED: cefTRIAXone 2,000 MG in NS (IVPB) 50 ML IV SCH (09:00)
--- NOTE | 2022-02-11 09:44 | Cardiology Progress Note ---
Subjective Date Seen by Provider: Feb 11, 2022 Time Seen by Provider: 09:43 Subjective/Events-last exam Patient was seen at bedside, laying down comfortably. No new complaint Review of Systems General: No Chills, No Night Sweats, No Fatigue, No Malaise, No Appetite, No Other HEENT: No Head Aches, No Visual Changes, No Eye Pain, No Ear Pain, No Dysphasia, No Sinus Congestion, No Post Nasal Drip, No Sore Throat, No Other Pulmonary: No Dyspnea, No Cough, No Pleuritic Chest Pain, No Other Cardiovascular: No: Chest Pain, Palpitations, Orthopnea, Paroxysmal Noc. Dyspnea, Edema, Lt Headedness, Other Objective-Cardiology Exam Last Set of Vital Signs Vital Signs 02/10/22 02/11/22 08:19 07:48 Temp 36.8 Pulse 50 Resp 18 B/P (MAP) 138/72 (94) Pulse Ox 97 O2 Delivery Nasal Cannula O2 Flow Rate 2.00 FiO2 28 I&O Intake and Output 02/10/22 23:59 Intake Total 2740 ml Output Total 3445 ml Balance -705 ml Intake Oral 2220 ml IV Total 520 ml Output Urine Total 3445 ml General: Alert, Oriented X3, Cooperative HEENT: Atraumatic, PERRLA Neck: Supple, No JVD, No Thyromegaly Lungs: Clear to Auscultation, Normal Air Movement Heart: Regular Rate, Normal S1, Normal S2, No Murmurs Abdomen: Normal Bowel Sounds, Soft, No Tenderness, No Hepatosplenomegaly, No Masses Extremities: No Clubbing, No Cyanosis, No Edema, Normal Pulses, No Tenderness/Swelling Skin: No Rashes, No Breakdown, No Significant Lesion Neuro: Normal Gait, Normal Speech, Strength at 5/5 X4 Ext, Normal Tone, Sensation Intact Psych/Mental Status: Mental Status NL, Mood NL Results Lab Laboratory Tests 02/11/22 05:09 A/P-Cardiology Admission Diagnosis Nonhealing ulcer on the right lower extremity Hypertension Hyperlipidemia Bradycardia Assessment/Plan Nonhealing wound on the right foot. Osteomyelitis. Ultrasound was done on February 04, 2022 suggestive marked velocity elevation in the mid SFA, suggestive of severe stenosis. Peripheral angiogram was done on February 06, 2022 showing mild peripheral arterial disease nonobstructive disease. MRSA on blood culture, underwent amputation with debridement with Dr. De on February 09, 2022 Continue on antibiotics. Hyperkalemia, better. Received Kayexalate. Continue to monitor electrolytes closely Coronary artery disease, cardiac catheterization was carried out in [place] [address] Dolan showing mild coronary artery disease with normal LV function. 2D echocardiogram was done on February 07, 2022 showing normal LV size and function ejection fraction 60%, difficult study due to patient body habitus. History of paroxysmal atrial fibrillation, currently in sinus rhythm Mild sinus bradycardia. Tolerating beta-lorelei at this time. Hypertension, hypertensive heart disease with left ventricular diastolic dysfunction Maintained on amlodipine 10 mg daily, Reuben Patino decreased Lopressor to 50 mg twice daily due to bradycardia. Chronic kidney disease, starting IV fluid and monitor renal function, minimize contrast use Diabetes mellitus, followed and managed by primary care physician History of seizure disorder. History of peripheral neuropathy History of right upper extremity venous thrombosis after central line placement Bipolar disorder Fibromyalgia Hyperlipidemia with intolerance to statin. TIMUR HAWKINS MD Feb 11, 2022 09:44
--- NOTE | 2022-02-11 10:33 | Progress Note - Surgery ---
MCKENZIE WEBER 02/11/22 1033: Subjective Date Seen by a Provider: Feb 11, 2022 Time Seen by a Provider: 10:28 Subjective/Events-last exam Patient resting comfortably. States his pain has improved from yesterday, rating it 6/10. He is tolerating diet well and having adequate urine output. He denies fever, chills, sweats, N/V, chest pain, and shortness of breath. Objective Exam Vital Signs Date Time Temp Pulse Resp B/P (MAP) Pulse Ox O2 Delivery O2 Flow Rate FiO2 02/11/22 08:00 97 Nasal Cannula 2.00 02/11/22 07:48 36.8 50 18 138/72 (94) 97 Nasal Cannula 2.00 02/11/22 04:10 36.8 86 18 153/77 (102) 97 Nasal Cannula 2.00 02/11/22 02:34 98 Nasal Cannula 2.00 02/10/22 23:00 37.0 84 18 140/89 (106) Nasal Cannula 2.00 02/10/22 22:27 98 Nasal Cannula 2.00 02/10/22 22:21 98 Nasal Cannula 2.00 02/10/22 20:33 36.8 73 18 129/75 (93) 93 Nasal Cannula 2.00 02/10/22 20:00 Nasal Cannula 2.00 02/10/22 15:54 36.7 101 18 132/70 (90) 100 Nasal Cannula 2.00 02/10/22 15:34 99 Nasal Cannula 2.00 02/10/22 11:39 37.1 60 18 154/56 (88) 91 Nasal Cannula 2.00 I & O 02/11/22 07:00 Intake Total 3140 ml Output Total 3970 ml Balance -830 ml Capillary Refill : Less Than 3 Seconds General Appearance: No Apparent Distress, Obese HEENT: PERRL/EOMI, Moist Mucous Membranes Neck: Normal Inspection, Supple Respiratory: Chest Non Tender, Lungs Clear, Normal Breath Sounds, No Accessory Muscle Use, No Respiratory Distress Cardiovascular: Regular Rate, Rhythm, No JVD, No Murmur Peripheral Pulses: 1+ Dorsalis Pedis (R), 1+ Left Dors-Pedis (L) (See free text); 2+ Radial Pulses (R), 2+ Radial Pulses (L) Gastrointestinal: normal bowel sounds, non tender, soft, other (obese) Extremity: Non Tender, No Calf Tenderness, Other (Right great toe amputated open wound no signs of infection no purulent drainage clean and dry. No significant erythema or swelling. ) Neurologic/Psychiatric: Alert, Oriented x3, No Motor/Sensory Deficits Skin: Normal Color, Warm/Dry Lymphatic: No Adenopathy Results Lab Laboratory Tests 02/10/22 11:05: Glucometer 226H 02/10/22 15:11: Glucometer 298H 02/10/22 20:02: Glucometer 246H 02/11/22 05:09: White Blood Count 7.8, Red Blood Count 3.49L, Hemoglobin 8.6L, Hematocrit 29L, Mean Corpuscular Volume 83, Mean Corpuscular Hemoglobin 25, Mean Corpuscular Hemoglobin Concent 30L, Red Cell Distribution Width 20.3H, Platelet Count 268, Mean Platelet Volume 11.5, Immature Granulocyte % (Auto) 1, Neutrophils (%) (Auto) 68, Lymphocytes (%) (Auto) 16, Monocytes (%) (Auto) 13H, Eosinophils (%) (Auto) 3, Basophils (%) (Auto) 1, Neutrophils # (Auto) 5.3, Lymphocytes # (Auto) 1.2, Monocytes # (Auto) 1.0, Eosinophils # (Auto) 0.2, Basophils # (Auto) 0.1, Immature Granulocyte # (Auto) 0.1, Sodium Level 141, Potassium Level 5.0, Chloride Level 107, Carbon Dioxide Level 23, Anion Gap 11, Blood Urea Nitrogen 28H, Creatinine 1.44H, Estimat Glomerular Filtration Rate 57, BUN/Creatinine Ratio 19, Glucose Level 179H, Calcium Level 9.3, Magnesium Level 2.1 02/11/22 06:01: Glucometer 172H Microbiology 02/09/22 Gram Stain - Final, Resulted 02/09/22 Anaerobic Culture, Resulted Pending 02/09/22 Surgical Culture - Preliminary, Resulted Staphylococcus aureus Proteus species 02/09/22 Fungal Culture 1, Resulted Pending 02/08/22 MRSA Screen - Final, Complete MRSA not isolated 02/08/22 Blood Culture - Preliminary, Resulted Staph, Coag Neg (JOINER) 02/04/22 Urine Culture - Final, Complete Klebsiella pneumoniae Assessment/Plan Assessment/Plan Assessment/Plan Status post right great toe amputation. Continue with daily wound care. Pain control. On IV antibiotics. IBJU DE DO 02/11/222054: Subjective Subjective/Events-last exam Pain improving. Tolerating dressing changes. Denies any new complaints. Denies n/v fever sweats chills shortness of breath or chest pain. Dressing changed already today. Objective Exam General Appearance: No Apparent Distress, Obese HEENT: PERRL/EOMI, Moist Mucous Membranes Neck: Normal Inspection, Supple Respiratory: Chest Non Tender, No Accessory Muscle Use, No Respiratory Distress Cardiovascular: Regular Rate, Rhythm, No JVD Gastrointestinal: non tender, soft, other (obese) Extremity: Other (Right great toe amputated dressing intact No significant erythema or swelling. ) Neurologic/Psychiatric: Alert, Oriented x3, No Motor/Sensory Deficits Skin: Normal Color, Warm/Dry Lymphatic: No Adenopathy Assessment/Plan Assessment/Plan Assessment/Plan Status post right great toe amputation. Continue with daily wound care. Pain control. Patient just had dressing change and not wanting changed at this time. Follow up outpatient. Supervisory-Addendum Brief Verification & Attestation Participated in pt care: history, MDM, physical Personally performed: exam, history, MDM, supervision of care Care discussed with: Medical Student Procedures: n/a Results interpretation: Verified all documentation Verification and Attestation of Medical Student E/M Service A medical student performed and documented this service in my presence. I reviewed and verified all information documented by the medical student and made modifications to such information, when appropriate. I personally performed the physical exam and medical decision making. Biju De, Feb 11, 2022,20:55 MCKENZIE WEBER Feb 11, 2022 10:33 BIJU DE DO Feb 11, 2022 20:55
[2022-02-11] MEDS: UMECLIDINIUM BROMIDE (INCRUSE ELLIPTA) 7'S IH SCH (10:49)
[2022-02-11] MEDS: RT--FLUTICASONE/SALMETEROL 232-14 (AIRDUO RespiCLICK) IH SCH (10:49)
[2022-02-11 11:34] VITALS: BP 149/77
[2022-02-11] MEDS ORDERED: inSUlin ASPART (NovoLOG) 1 UNIT/0.01 ML (CHARGE PER UNIT) SC SCH (12:00)
[2022-02-11] MEDS ORDERED: VANC2VIA IV (12:49)
--- NOTE | 2022-02-11 12:52 | Discharge Inst-Skilled Nursing ---
Discharge Inst-Skilled NF Consult/Follow Up/Orders Skilled NF Admit to: [facility] Certification (SNF) I certify that SNF services are required to be given on an inpatient basis because of the above named patient's need for correction care on a continuing basis for the conditions(s) for which he/she was receiving inpatient hospital services prior to his/her transfer to the SNF. Longterm Facility Order: Nursing Services, Lead Coater-Evaluate & Treat, Physical Therapy-Evaluate & Treat, Wound Care-Eval/Treat Oxygen Delivery Method: Nasal Cannula Discharge Diet: No Restrictions Daily Activity as Tolerated: Yes Resuscitation Status: Full Code New & Resume Previous Orders Carina Rojas Feb 11, 2022 12:51 CARINA ROJAS MD Feb 11, 2022 12:52
--- NOTE | 2022-02-11 12:58 | Diagnostic Imaging Report ---
INDICATION: PICC line placement. Time of Exam: 12:43 PM Correlation is made with prior chest 02/04/2022. Left upper extremity PICC line has a tip overlying the right atrium. This could be pulled back approximately 4 cm. Heart is enlarged. The central congestion. No effusion or pneumothorax is seen. IMPRESSION: PICC line placement, as described. This could be pulled back approximately 4 cm. Dictated by: Dictated on workstation # [id number]
--- NOTE | 2022-02-11 15:13 | Physical Therapy Progress Note ---
Therapy Progress Note Attempted to perform PT this morning and this afternoon and pt refused both times this date. Educated pt about benefits of PT but pt to still refused treatment. YUN HERBERT HEAD OF TALENT MANAGEMENT Feb 11, 2022 15:13
--- NOTE | 2022-02-11 19:23 | Discharge Summary ---
Discharge Summary Hospital Course Problems/Dx: (1) MRSA bacteremia Status: Acute (2) Osteomyelitis of great toe of right foot Status: Acute (3) T2DM (type 2 diabetes mellitus) Status: Acute (4) CKD (chronic kidney disease) Status: Chronic Qualifiers: Qualified Codes: N18.31 - Chronic kidney disease, stage 3a (5) Morbid obesity Status: Chronic Hospital Course Date of Admission: Feb 04, 2022 at 17:45 Admission Diagnosis : Osteomyelitis Family Physician/Provider: Elizabeth Quesada MD Date of Discharge: 02/11/22 Discharge Diagnosis: Osteomyelitis, MRSA bacteremia Hospital Course: Elie Josue is a 57 year old male with PMH HTN, T2DM on insulin, CKD, who was admitted with osteomyelitis of the right great toe. Surgery was consulted. There was concern for peripheral arterial disease. He underwent arterial ultrasound which was concerning for stenosis. Cardiology was consulted and performed peripheral angiogram which did not reveal any signfiicant stenosis. He underwent right great toe amputation which was uncomplicated. His blood cultures were positive for MRSA. He had an echo which did not reveal evidence of endocarditis. His repeat blood cultures were negative at the time of discharge. He was continued on IV Vancomycin via PICC for 21 days, renally dosed. His course was complicated by UTI. He received a course of Cefepime. He was discharged back to [facility] in stable condition. Labs and Pending Lab Test: Laboratory Tests 02/10/22 20:02: Glucometer 246H 02/11/22 05:09: White Blood Count 7.8, Red Blood Count 3.49L, Hemoglobin 8.6L, Hematocrit 29L, Mean Corpuscular Volume 83, Mean Corpuscular Hemoglobin 25, Mean Corpuscular Hemoglobin Concent 30L, Red Cell Distribution Width 20.3H, Platelet Count 268, Mean Platelet Volume 11.5, Immature Granulocyte % (Auto) 1, Neutrophils (%) (Auto) 68, Lymphocytes (%) (Auto) 16, Monocytes (%) (Auto) 13H, Eosinophils (%) (Auto) 3, Basophils (%) (Auto) 1, Neutrophils # (Auto) 5.3, Lymphocytes # (Auto) 1.2, Monocytes # (Auto) 1.0, Eosinophils # (Auto) 0.2, Basophils # (Auto) 0.1, Immature Granulocyte # (Auto) 0.1, Sodium Level 141, Potassium Level 5.0, Chloride Level 107, Carbon Dioxide Level 23, Anion Gap 11, Blood Urea Nitrogen 28H, Creatinine 1.44H, Estimat Glomerular Filtration Rate 57, BUN/Creatinine Ratio 19, Glucose Level 179H, Calcium Level 9.3, Magnesium Level 2.1 02/11/22 06:01: Glucometer 172H 02/11/22 11:04: Glucometer 286H Microbiology 02/09/22 Gram Stain - Final, Resulted 02/09/22 Anaerobic Culture - Preliminary, Resulted Prevotella bivia 02/09/22 Surgical Culture - Preliminary, Resulted Staphylococcus aureus Susceptibility To Follow Mixed Bacterial Nani Proteus species 02/09/22 Fungal Culture 1 - Preliminary, Resulted 02/08/22 MRSA Screen - Final, Complete MRSA not isolated 02/08/22 Blood Culture - Preliminary, Resulted Staph, Coag Neg (CONSUMER LENDING MANAGER) 02/04/22 Urine Culture - Final, Complete Klebsiella pneumoniae Home Meds Active Vancomycin 2,000 mg/20Ml-Water (Vancomycin HCl in Water) 2 Gram/20 Ml (100 Mg/Ml) Vial 2 Gm IV Q48H 21 Days Reported Glucose Gel (Dextrose) 40 % Gel..gram. 38 Gm PO PRN PRN FSBS BELOW 70 - GIVE ONE TUBE OF GLUCOSE GEL 15G ORALLY. WAITH 10MIN AND RECHECK FSBS. IF STILL MORE THAN SLIGHTLY BELOW 70 NOTIFIY PHYSICIAN AND ADMINISTER ANOTHER GLUCOSE GEL 15G. WAIT 10MIN RECHECK FSBS. Glucagon Emergency Kit (Glucagon,Human Recombinant) 1 Mg Soln 1 Mg IJ PRN PRN FSBS BELOW 40 - INJECT GLUCAGON SQ IN ABD. IF RESIDENT IS UNRESPONSIVE CALL 911. WAIT 10 MIN RECHECK FSBS. AFTER RECHECK FSBS BELOW 70 - CONTACT 911, PHYSICIAN, AND RESPONSIBLE REPUBLICAN. Potassium Chloride 20 Meq Tab.er.prt 20 Meq PO DAILY Gabapentin 100 Mg Capsule 200 Mg PO TID TAKES 2 (100MG) CAPS Duloxetine HCl 20 Mg Capsule.dr 40 Mg PO DAILY TAKES 2 (20MG) CAPS Levemir Flextouch (Insulin Detemir) 100 Unit/Ml (3 Ml) Insuln.pen 25 Unit SQ BID Humalog Kwikpen (Insulin Lispro) 200 Unit/Ml (3 Ml) Insuln.pen 20 Unit SQ AC Doxazosin Mesylate 2 Mg Tablet 2 Mg PO HS Tramadol HCl 50 Mg Tablet 50 Mg PO Q8HR PRN Symbicort 160-4.5 Mcg Inhaler (Budesonide/Formoterol Fumarate) 160 Mcg-4.5 Mcg/Actuation Hfa.aer.ad 2 Puff IH BID Flintstones Complete Chew Tab (Ped Multivit #43/Iron Fumarate) 18 Mg Iron Tab.chew 18 Mg PO DAILY Jardiance (Empagliflozin) 25 Mg Tablet 25 Mg PO DAILY Ondansetron Odt (Ondansetron) 4 Mg Tab.rapdis 4 Mg PO Q8H PRN Tylenol (Acetaminophen) 325 Mg Tablet 650 Mg PO Q6H PRN Calcium Carbonate 500 Mg Tablet 500 Mg PO Q6H PRN Guaifenesin-Dm 100-10 mg/5 ml (Guaifenesin/Dextromethorphan) 5 Ml Liquid 10 Ml PO Q4H PRN Miralax (Polyethylene Glycol 3350) 17 Gm Powd.pack 17 Gm PO Q12H PRN Meclizine HCl 25 Mg Tablet 25 Mg PO DAILY PRN Docusate Sodium 100 Mg Capsule 100 Mg PO DAILY PRN Loperamide (Loperamide HCl) 2 Mg Tablet 2 Mg PO Q1H PRN MDD 8MG Albuterol Sulfate 2.5 Mg/0.5 Ml Vial.neb 2.5 Mg INH Q8H PRN Metoprolol Tartrate 100 Mg Tablet 100 Mg PO BID HOLD IF PULSE IS LESS THAN 50 AND IF BLOOD PRESSURE LESS THAN 100/50 Melatonin 3 Mg Tablet 3 Mg PO HS Aspirin EC (Aspirin) 81 Mg Tablet. 81 Mg PO DAILY Amlodipine Besylate 10 Mg Tablet 10 Mg PO DAILY HOLD FOR PULSE <50 AND BP <100/50 Flomax (Tamsulosin HCl) 0.4 Mg Cap 0.4 Mg PO DAILY Spiriva Respimat 1.25MCG/ACTUATION (Tiotropium Baker) 4 Gm Mist.inhal 2 Puff IH DAILY Furosemide 20 Mg Tablet 60 Mg PO DAILY TAKES 3 (20MG) TABLETS Alphagan P (Brimonidine Tartrate) 5 Ml Drops 1 Drop OU BID Rosuvastatin Calcium 40 Mg Tablet 40 Mg PO DAILY Eliquis (Apixaban) 5 Mg Tablet 5 Mg PO BID Aripiprazole 10 Mg Tablet 10 Mg PO DAILY Divalproex Sodium 250 Mg Tablet.dr 250 Mg PO TID Assessment/Pt Instructions See instructions Discharge Planning: >30 minutes discharge planning Discharge Instructions Discharge Diet: No Restrictions Activity as Tolerated: Yes Consultations Surgery, Cardiology Discharge Physical Examination Vital Signs Vital Signs Date Time Temp Pulse Resp B/P (MAP) Pulse Ox O2 Delivery O2 Flow Rate FiO2 02/11/22 14:26 02/11/22 11:34 36.5 56 18 99 Nasal Cannula 2.00 02/10/22 08:19 28 General Appearance: No Apparent Distress, Obese Respiratory: Lungs Clear, No Respiratory Distress Cardiovascular: Regular Rate, Rhythm, No Murmur Gastrointestinal: Normal Bowel Sounds, Soft Extremity: Pedal Edema, Other (right great toe amputation with bandage in place) Neurologic/Psychiatric: Alert, Normal Mood/Affect Allergies: Coded Allergies: penicillin V (Unverified Allergy, Unknown, 10/01/08) erythromycin base (Unverified Adverse Reaction, Mild, VOMITING, 03/18/13) Copy Copies To 1: ELIZABETH QUEASDA MD Discharge Summary Date of Admission Feb 04, 2022 at 17:45 Date of Discharge Feb 11, 2022 at 14:15 Discharge Date: Feb 11, 2022 Discharge Time: 14:15 Admission Diagnosis Osteomyelitis Consults/Procedures Consulations Surgery, Cardiology Procedures Right great toe amputation Discharge Diagnosis Osteomyelitis MRSA bacteremia Klebsiella UTI CKD stage 3a Hyperkalemia T2DM with hyperglycemia (1) MRSA bacteremia Status: Acute (2) Osteomyelitis of great toe of right foot Status: Acute (3) T2DM (type 2 diabetes mellitus) Status: Acute (4) CKD (chronic kidney disease) Status: Chronic Qualifiers: Qualified Codes: N18.31 - Chronic kidney disease, stage 3a (5) Morbid obesity Status: Chronic GUALBERTO ROJAS MD Feb 11, 2022 19:21
[2022-02-12] MEDS ORDERED: VANCOMYCIN 2000 MG/NS 500 ML IVPB IV SCH ×2 (08:00)
--- NOTE | 2022-02-15 05:24 | Physician Query Clarification ---
PQ-CHF Specificity Admission Date: Feb 04, 2022 at 17:45 Discharge Date: Feb 11, 2022 at 14:15 GUALBERTO Sutton MD. The medical record reflects the following clinical scenario: History/Risk Factors: 57 y/o male patient admitted with osteomyeliitis of right great toe underwent toe amputation, CHF was documented in medical record. Clinical Findings: Edema, left ventricular dysfunction, EF-55-60 % as per echo. Treatment: Lasix, amlodipine, Lopressor. Question: Can you further specify the acuity &/or type of CHF per the clinical indicators above? Please document a response in the Progress Notes or Discharge Summary. 1. Acuity: Acute, Chronic or Acute on Chronic 2. Type: Systolic, Diastolic or Systolic & Diastolic 3. Unspecified: CHF cannot be further specified regarding type or acuity 4. Other, with explanation of clinical findings 5. Clinically undetermined, no explanation for clinical findings In responding to this query, please exercise your independent professional judgment. The purpose of this communication is to more accurately reflect the complexity of your patients condition. The fact that a question is asked does not imply that any particular answer is desired or expected. Thank you for your timely response to this clarification. Requestors name: [ ] Phone # [ ] THIS PHYSICIAN QUERY FORM IS A PERMANENT PART OF THE MEDICAL RECORD HOMA ENCINAS Feb 15, 2022 05:24
--- NOTE | 2022-02-21 10:19 | Anesthesia-General Post-Op ---
General Significant Intra-Op Events Notes late entry 02/09/22@ 0900 Patient Condition Mental Status/LOC: Same as Preop Cardiovascular: Satisfactory Nausea/Vomiting: Absent Respiratory: Satisfactory Pain: Controlled Complications: Absent Post Op Complications Complications None Follow Up Care/Instructions Patient Instructions None needed. Anesthesia/Patient Condition Patient Condition Patient is doing well, no complaints, stable vital signs, no apparent adverse anesthesia problems. No complications reported per nursing. GISELLE PICHARDO CRNA Feb 21, 2022 10:19
== END 2022-02-11 14:15 | DRG 616 ==
LOC: EDUNIT# 15:43 → ER 15:46 → ICU 17:45 → 4TH 02-05 15:55 → ICU 02-06 14:20 → 4TH 02-06 18:12
PROVIDERS: ADMIT Family Medicine; ATTEND Internal Medicine
PROC: 0Y6P0Z0 Detachment at Right 1st Toe, Complete, Open Approach (ICD-10-PCS; principal; 2022-02-09 07:41)
DX: E11.69 Type 2 diabetes mellitus with other specified complication (principal); I50.31 Acute diastolic (congestive) heart failure; I13.0 Hypertensive heart and chronic kidney disease with heart failure and stage 1 through stage 4 chronic kidney disease, or unspecified chronic kidney disease; I42.9 Cardiomyopathy, unspecified; J96.10 Chronic respiratory failure, unspecified whether with hypoxia or hypercapnia; R78.81 Bacteremia; N39.0 Urinary tract infection, site not specified; Z68.42 Body mass index [BMI] 45.0-49.9, adult; L03.115 Cellulitis of right lower limb; Z79.82 Long term (current) use of aspirin; Z79.4 Long term (current) use of insulin; Z79.899 Other long term (current) drug therapy; E11.22 Type 2 diabetes mellitus with diabetic chronic kidney disease; F31.9 Bipolar disorder, unspecified; E11.40 Type 2 diabetes mellitus with diabetic neuropathy, unspecified; F41.9 Anxiety disorder, unspecified; Z86.16 Personal history of COVID-19; K21.9 Gastro-esophageal reflux disease without esophagitis; I25.10 Atherosclerotic heart disease of native coronary artery without angina pectoris; E78.00 Pure hypercholesterolemia, unspecified; K57.90 Diverticulosis of intestine, part unspecified, without perforation or abscess without bleeding; M79.7 Fibromyalgia; M06.9 Rheumatoid arthritis, unspecified; G89.29 Other chronic pain; M54.9 Dorsalgia, unspecified; H40.9 Unspecified glaucoma; I95.9 Hypotension, unspecified; F17.210 Nicotine dependence, cigarettes, uncomplicated; G40.909 Epilepsy, unspecified, not intractable, without status epilepticus; I48.0 Paroxysmal atrial fibrillation; Z86.73 Personal history of transient ischemic attack (TIA), and cerebral infarction without residual deficits; N18.31 Chronic kidney disease, stage 3a; E87.5 Hyperkalemia; E66.01 Morbid (severe) obesity due to excess calories; N40.0 Benign prostatic hyperplasia without lower urinary tract symptoms; D63.1 Anemia in chronic kidney disease; B96.1 Klebsiella pneumoniae [K. pneumoniae] as the cause of diseases classified elsewhere; B95.62 Methicillin resistant Staphylococcus aureus infection as the cause of diseases classified elsewhere; E11.621 Type 2 diabetes mellitus with foot ulcer; L97.519 Non-pressure chronic ulcer of other part of right foot with unspecified severity; R00.1 Bradycardia, unspecified; Z86.718 Personal history of other venous thrombosis and embolism; E11.51 Type 2 diabetes mellitus with diabetic peripheral angiopathy without gangrene
CPT/HCPCS: 36248; 36410; 36415; 36569; 71045; 73630; 75716; 76937; 80048; 80053; 80202; 81000; 82947; 83605; 83735; 84100; 85025; 85610; 85652; 85730; 86141; 87040; 87070; 87075; 87076; 87077; 87081; 87088; 87101; 87186; 87205; 93005; 93306; 93925; 94640; 94760; 96365; 96375

== ENCOUNTER → 2022-02-14 | Outpatient (CLI) | payer MEDICARE, MEDICAID ==
[~2022-02-14] MED LIST changes: +DEXT38GE12 PO; +GLUC1KIT IJ; +POTA-179 PO; +VANC2VIA IV
== END ==
LOC: LABNPT 09:05
PROVIDERS: ATTEND Internal Medicine
DX: N30.00 Acute cystitis without hematuria (principal)
CPT/HCPCS: 80202

== ENCOUNTER → 2022-02-18 | Outpatient (CLI) | payer MEDICARE, MEDICAID | LOC: LABNPT 12:42 | PROVIDERS: ATTEND Internal Medicine | DX: M86.171 Other acute osteomyelitis, right ankle and foot (principal); A49.02 Methicillin resistant Staphylococcus aureus infection, unspecified site; E11.9 Type 2 diabetes mellitus without complications; N18.31 Chronic kidney disease, stage 3a | CPT/HCPCS: 80202 ==

== ENCOUNTER → 2022-02-23 | Outpatient (CLI) | payer MEDICARE, MEDICAID | LOC: LAB 14:41 | PROVIDERS: ATTEND Internal Medicine | DX: Z51.81 Encounter for therapeutic drug level monitoring (principal); Z16.22 Resistance to vancomycin related antibiotics | CPT/HCPCS: 36415; 80202 ==

== ENCOUNTER → 2022-02-23 | Day surgery (SDC) | payer MEDICARE, MEDICAID ==
[~2022-02-23] VITALS: Ht 182.9 cm; Wt 163.6 kg
[2022-02-23 15:43] VITALS: BP 121/52
--- NOTE | 2022-02-23 16:50 | Diagnostic Imaging Report ---
INDICATION: PICC line placement. COMPARISON: 02/11/2022. FINDINGS: Single frontal radiographic view of the chest was obtained and demonstrates left upper extremity PICC line with tip just below the cavoatrial junction. Cardiac silhouette and pulmonary vasculature remain prominent. There is also persistent diffuse prominence of the interstitium suggestive of pulmonary edema. No new large effusion or pneumothorax is seen. Osseous structures show no acute adverse interval change. IMPRESSION: 1. Left upper extremity PICC line with tip just below the cavoatrial junction. 2. Cardiomegaly with sequela of CHF including probable interstitial pulmonary edema. Dictated by: Dictated on workstation # [id number]
== END ==
LOC: SDC 15:43
PROVIDERS: ATTEND Nurse Practitioner Family
DX: I51.7 Cardiomegaly (principal); I50.9 Heart failure, unspecified
CPT/HCPCS: 36569; 71045; 76937; C1751

== ENCOUNTER → 2022-02-24 | Outpatient (CLI) | payer MEDICARE, MEDICAID ==
[2022-02-24 13:39] LABS: ALBUMIN 2.7 GM/DL (3.2-4.5); BILIRUBIN,TOTAL 0.3 MG/DL (0.1-1.0); CALCIUM 8.2 MG/DL (8.5-10.1); CREATININE SERUM 1.75 MG/DL (0.60-1.30); TOTAL PROTEIN 7.2 GM/DL (6.4-8.2)
== END ==
LOC: LABNPT 12:08
PROVIDERS: ATTEND Internal Medicine
DX: Z01.89 Encounter for other specified special examinations (principal)
CPT/HCPCS: 80053; 80202

== ENCOUNTER → 2022-02-25 | Outpatient (CLI) | payer MEDICARE, MEDICAID | LOC: LABNPT 14:56 | PROVIDERS: ATTEND Nurse Practitioner Family | DX: Z01.89 Encounter for other specified special examinations (principal) | CPT/HCPCS: 80202 ==

== ENCOUNTER 2022-04-17 11:12 | Inpatient (IN) | payer MEDICARE, MEDICAID ==
[~2022-04-17] VITALS: Ht 187 cm; Wt 158.2 kg
[~2022-04-17 11:12] MED LIST changes: +POTA-177 PO; -POTA10TA37 PO
[2022-04-17] MEDS ORDERED: PROPOFOL DRIP (ICU) 100 ML IV ONE ×2 (11:42→16:05)
--- NOTE | 2022-04-17 11:44 | ED Psychosocial ---
General Chief Complaint: Unresponsive Stated Complaint: AMS Nursing Triage Note: PT FOUND UNRESPONSIVE AT [facility]ICALOD WITH A PULSE. PT COVERED IN URINE. 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 PT HAS A NON REBREATHER IN PLACE. UPON ARRIVAL PT MOANS WITH STERNAL RUB. Source: family, EMS History of Present Illness Date Seen by Provider: Apr 17, 2022 Time Seen by Provider: 11:10 Initial Comments 57-year-old male presents the emergency department via EMS from local nursing facility. He is known to have diabetes, congestive heart failure. He was found unresponsive just prior to arrival. Reported last known well time was 1 hour prior to the time of being found. EMS reports nursing staff that he may have had pneumonia sometime recently but they are unsure when. He does have very physical diabetes and frequently has "blood sugar issues." No other history is able to be obtained as patient is unresponsive on arrival Allergies and Home Medications Allergies Coded Allergies: penicillin V (Unverified Allergy, Unknown, 10/01/08) erythromycin base (Unverified Adverse Reaction, Mild, VOMITING, 03/18/13) Patient Home Medication List Home Medication List Reviewed: Yes Acetaminophen (Tylenol) 325 Mg Tablet, 650 MG PO Q6H PRN for PAIN-MILD (1-4), (Reported) Entered as Reported by: KALEN ALBERTO on 09/17/211410 Albuterol Sulfate (Albuterol Sulfate) 2.5 Mg/0.5 Ml Vial.neb, 2.5 MG INH Q8H PRN for SHORTNESS OF BREATH, (Reported) Entered as Reported by: KALEN ALBERTO on 09/17/211410 Amlodipine Besylate (Amlodipine Besylate) 10 Mg Tablet, 10 MG PO DAILY, (Reported) Entered as Reported by: KALEN ALBERTO on 09/17/211410 Apixaban (Eliquis) 5 Mg Tablet, 5 MG PO BID, (Reported) Entered as Reported by: JIM GRADY on 12/03/15 100 Aripiprazole (Aripiprazole) 10 Mg Tablet, 10 MG PO DAILY, (Reported) Entered as Reported by: JIM GRADY on 12/03/15 100 Aspirin (Aspirin EC) 81 Mg Tablet.dr, 81 MG PO DAILY, (Reported) Entered as Reported by: KALEN ALBERTO on 3/11/22 1411 Brimonidine Tartrate (Alphagan P) 5 Ml Drops, 1 DROP OU BID, (Reported) Entered as Reported by: KERA FELIPE on 02/22/21 1415 Budesonide/Formoterol Fumarate (Symbicort 160-4.5 Mcg Inhaler) 160 Mcg-4.5 Mcg/Actuation Hfa.aer.ad, 2 PUFF IH BID, (Reported) Entered as Reported by: RASTA SANCHES on 11/22/21 1202 Calcium Carbonate (Calcium Carbonate) 500 Mg Tablet, 500 MG PO Q6H PRN for HEARTBURN, (Reported) Entered as Reported by: KALEN ALBERTO on 09/17/21 1411 Dextrose (Glucose Gel) 40 % Gel..gram., 38 GM PO PRN PRN for HYPOGLYCEMIA, (Reported) Entered as Reported by: DAYLIN SHARP on 02/05/22 1208 Divalproex Sodium (Divalproex Sodium) 250 Mg Tablet.dr, 250 MG PO TID, (Reported) Entered as Reported by: JIM GRADY on 12/03/15 1005 Docusate Sodium (Docusate Sodium) 100 Mg Capsule, 100 MG PO DAILY PRN for CONSTIPATION-1ST LINE, (Reported) Entered as Reported by: KALEN ALBERTO on 09/17/21 1411 Doxazosin Mesylate (Doxazosin Mesylate) 2 Mg Tablet, 2 MG PO HS, (Reported) Entered as Reported by: SHADY CHONG on 12/01/21 1051 Duloxetine HCl (Duloxetine HCl) 20 Mg Capsule.dr, 40 MG PO DAILY, (Reported) Entered as Reported by: SHADY CHONG on 12/15/21 1049 Empagliflozin (Jardiance) 25 Mg Tablet, 25 MG PO DAILY, (Reported) Entered as Reported by: OSMANY QUEZADA on 11/20/21 1544 Furosemide (Furosemide) 20 Mg Tablet, 60 MG PO DAILY, (Reported) Entered as Reported by: KERA FELIPE on 02/22/21 1415 Gabapentin (Gabapentin) 100 Mg Capsule, 200 MG PO TID, (Reported) Entered as Reported by: SHADY CHONG on 12/15/21 1049 Glucagon,Human Recombinant (Glucagon Emergency Kit) 1 Mg Soln, 1 MG IJ PRN PRN for HYPOGLYCEMIA, (Reported) Entered as Reported by: DAYLIN SHARP on 02/05/22 1208 Guaifenesin/Dextromethorphan (Guaifenesin-Dm 100-10 mg/5 ml) 5 Ml Liquid, 10 ML PO Q4H PRN for COUGH, (Reported) Entered as Reported by: KALEN ALBERTO on 09/17/21 141 Insulin Detemir (Levemir Flextouch) 100 Unit/Ml (3 Ml) Insuln.pen, 25 UNIT SQ BID, (Reported) Entered as Reported by: SHADY CHONG on 12/01/21 105 Insulin Lispro (Humalog Kwikpen) 200 Unit/Ml (3 Ml) Insuln.pen, 20 UNIT SQ AC, (Reported) Entered as Reported by: SHADY CHONG on 12/01/21 105 Loperamide HCl (Loperamide) 2 Mg Tablet, 2 MG PO Q1H PRN for DIARRHEA, (Reported) Entered as Reported by: KALEN ALBERTO on 09/17/21 141 Meclizine HCl (Meclizine HCl) 25 Mg Tablet, 25 MG PO DAILY PRN for VERTIGO, (Reported) Entered as Reported by: KALEN ALBERTO on 09/17/21 141 Melatonin (Melatonin) 3 Mg Tablet, 3 MG PO HS, (Reported) Entered as Reported by: KALEN ALBERTO on 09/17/211410 Metoprolol Tartrate (Metoprolol Tartrate) 100 Mg Tablet, 100 MG PO BID, (Reported) Entered as Reported by: KALEN ALBERTO on 09/17/21 141 Ondansetron (Ondansetron Odt) 4 Mg Tab.rapdis, 4 MG PO Q8H PRN for NAUSEA/VOMITING-1ST LINE, (Reported) Entered as Reported by: KALEN ALBERTO on 09/17/21 141 Ped Multivit #43/Iron Fumarate (Flintstones Complete Chew Tab) 18 Mg Iron Tab.chew, 18 MG PO DAILY, (Reported) Entered as Reported by: RASTA SANCHES on 11/22/21 1155 Polyethylene Glycol 3350 (Miralax) 17 Gm Powd.pack, 17 GM PO Q12H PRN for CONSTIPATION-2ND LINE, (Reported) Entered as Reported by: KALEN ALBERTO on 09/17/21 1411 Potassium Chloride (Potassium Chloride) 20 Meq Tab.er.prt, 20 MEQ PO DAILY, (Reported) Entered as Reported by: DAYLIN SHARP on 02/05/22 1208 Rosuvastatin Calcium (Rosuvastatin Calcium) 40 Mg Tablet, 40 MG PO DAILY, (Reported) Entered as Reported by: KERA FELIPE on 02/22/21 1415 Tamsulosin HCl (Flomax) 0.4 Mg Cap, 0.4 MG PO DAILY, (Reported) Entered as Reported by: KERA FELIPE on 02/22/21 1415 Tiotropium [place] (Spiriva Respimat 1.25MCG/ACTUATION) 4 Gm Mist.inhal, 2 PUFF IH DAILY, (Reported) Entered as Reported by: KERA FELIPE on 02/22/21 1415 Tramadol HCl (Tramadol HCl) 50 Mg Tablet, 50 MG PO Q8HR PRN for PAIN-MODERATE (5-7), (Reported) Entered as Reported by: RENETTA GAUTHIER on 11/30/21 1657 Vancomycin HCl in Water (Vancomycin 2,000 mg/20Ml-Water) 2 Gram/20 Ml (100 Mg/Ml) Vial, 2 GM IV Q48H Prescribed by: GUALBERTO ROJAS on 02/11/22 1249 Review of Systems ROS-Unable to Obtain: Unresponsive Constitutional: other (unable to obtain) Past Tpphtwb-Vpyarx-Dzpjyd Hx Patient Social History Tobacco Use?: No Smoking Status: Unknown if Ever Smoked Substance use?: Unable to obtain Alcohol Use?: Unable to obtain Immunizations Up To Date First/Initial COVID19 Vaccinat: 07/16/20 Second COVID19 Vaccination Bryce: 08/05/20 Third COVID19 Vaccination Date: 10/27/21 Seasonal Allergies Seasonal Allergies: No Past Medical History Surgery/Hospitalization HX: DM, HTN, HYPOXIA, BIPOLAR, NEUROPATHY, ANXIETY, CHF, AFIB, CKD, COVID, VERTIGO, GERD Surgeries: Yes Cardiac, Dialysis, Orthopedic, Renal, Vascular Surgery Respiratory: Yes (COMMUNITY ACQUIRED PNEUMONIA) Asthma, Pneumonia Currently Using CPAP: No (PT STATES HE IS SUPPOSED TO BUT HE DOES NOT.) Currently Using BIPAP: No Cardiac: Yes (PAD) Atrial Fibrillation, Cardiomyopathy, Coronary Artery Disease, High Cholesterol, Hypertension, Peripheral Vascular, Valvular Heart Disease Neurological: Yes (BRAIN INJURY CAUSES EMOTIONS TO CHANGE . LEFT SIDE WEAKNESS) Neuropathy Reproductive Disorders: No Sexually Transmitted Disease: No HIV/AIDS: No Kidney Stones, Renal Failure Gastrointestinal: Yes Colitis, Gastroesophageal Reflux, Diverticulosis, Polyps, Hiatal Hernia Musculoskeletal: Yes (WEAKNESS IN LEGS FROM STROKE ) Arthritis, Fibromyalgia, Rheumatoid Arthritis, Chronic Back Pain Endocrine: Yes Diabetes, Insulin dep Glaucoma Loss of Vision: Bilateral Hearing Impairment: Denies Cancer: No Psychosocial: Yes Sleep Difficulties, Bipolar, Depression Integumentary: No Blood Disorders: Yes (ANEMIA, BLOOD CLOTS ) Family Medical History Cardiovascular disease 19 MOTHER G8 BROTHER Colon cancer 19 MOTHER Completed stroke 19 FATHER Dementia 19 FATHER Diabetes mellitus 19 MOTHER FHx: macular degeneration 19 FATHER Myocardial infarction 19 MOTHER Heart Disease, Diabetes, Hypertension Physical Exam Vital Signs - First Documented 04/17/22 04/17/22 04/17/22 04/17/22 11:12 11:15 11:50 13:10 Temp 35.6 Pulse 82 Resp 16 B/P (MAP) 152/80 Pulse Ox 85 O2 Delivery Room Air O2 Flow Rate 15.00 FiO2 50 Capillary Refill : Less Than 3 Seconds Height, Weight, BMI Height: 6'2" Weight: 250lbs. 0.0oz. [id number]; 46.00 BMI Method:Estimated General Appearance: WD/WN HEENT: PERRL/EOMI, TMs normal, pharynx normal Respiratory: crackles, rhonchi Cardiovascular: bradycardia Gastrointestinal: normal bowel sounds, no organomegaly Extremities: normal inspection, no pedal edema, normal capillary refill Neurologic/Psychiatric: other (Responsive only to deep painful stimuli will open his eyes) Skin: normal color, warm/dry Procedures/Interventions Lumen: triple Central Line Procedure: betadine prep, sterile drapes applied, sterile dressing applied Position: femoral (R) Anesthesia: Lidocaine Volume Anesthetic (ccs): 10 Complications: none Post Position: sutured Date of ETT Placement: Apr 17, 2022 Time of ETT Placement: 1136 Intubation Method: orotracheal Medications: Etomidate, Rocuronium Positive End Tide CO2: Yes Breath Sounds after Intubation: bilateral-equal Intubation Complications: no complications Post Intubation Xray: Yes Progress/Results/Core Measures Results/Orders Lab Results Laboratory Tests Test 04/17/22 11:19 04/17/22 11:20 04/17/22 11:26 04/17/22 12:12 Range/Units Glucometer 110 70-110 MG/DL Blood Gas Puncture Site L RAD Blood Gas Patient Temperature 35.6 Arterial Blood pH 7.22 *L 7.37-7.43 Arterial Blood Partial Pressure CO2 77 *H 35-45 MMHG Arterial Blood Partial Pressure O2 129 H 79-93 MMHG Arterial Blood HCO3 31 H 23-27 MMOL/L Arterial Blood Total CO2 33.6 H 21.0-31.0 MMOL/L Arterial Blood Oxygen Saturation 99 94-100 % Arterial Blood Base Excess 3.5 H -2.5-2.5 MMOL/L Martin Test NA Blood Gas Ventilator Setting NO Blood Gas Inspired Oxygen 15L White Blood Count 6.2 4.3-11.0 10^3/uL Red Blood Count 3.58 L 4.30-5.52 10^6/uL Hemoglobin 9.2 L 13.3-17.7 g/dL Hematocrit 33 L 40-54 % Mean Corpuscular Volume 92 80-99 fL Mean Corpuscular Hemoglobin 26 25-34 pg Mean Corpuscular Hemoglobin Concent 28 L 32-36 g/dL Red Cell Distribution Width 22.7 H 10.0-14.5 % Platelet Count 203 130-400 10^3/uL Mean Platelet Volume 9.0-12.2 fL Immature Granulocyte % (Auto) 0 % Neutrophils (%) (Auto) 72 42-75 % Lymphocytes (%) (Auto) 14 12-44 % Monocytes (%) (Auto) 12 0-12 % Eosinophils (%) (Auto) 1 0-10 % Basophils (%) (Auto) 1 0-10 % Neutrophils # (Auto) 4.5 1.8-7.8 10^3/uL Lymphocytes # (Auto) 0.9 L 1.0-4.0 10^3/uL Monocytes # (Auto) 0.7 0.0-1.0 10^3/uL Eosinophils # (Auto) 0.1 0.0-0.3 10^3/uL Basophils # (Auto) 0.1 0.0-0.1 10^3/uL Immature Granulocyte # (Auto) 0.0 0.0-0.1 10^3/uL Percent Immature Platelet Fraction 10.6 H 0.0-7.6 % Prothrombin Time 17.1 H 12.2-14.7 SEC INR Comment 1.3 0.8-1.4 Sodium Level 144 135-145 MMOL/L Potassium Level 6.7 #*H 3.6-5.0 MMOL/L Chloride Level 112 H 98-107 MMOL/L Carbon Dioxide Level 26 21-32 MMOL/L Anion Gap 6 5-14 MMOL/L Blood Urea Nitrogen 28 H 7-18 MG/DL Creatinine 1.55 H 0.60-1.30 MG/DL Estimat Glomerular Filtration Rate 52 BUN/Creatinine Ratio 18 Glucose Level 106 H 70-105 MG/DL Lactic Acid Level 0.51 0.50-2.00 MMOL/L Calcium Level 8.4 L 8.5-10.1 MG/DL Corrected Calcium 9.2 8.5-10.1 MG/DL Magnesium Level 2.3 1.6-2.4 MG/DL Total Bilirubin 0.5 0.1-1.0 MG/DL Aspartate Amino Transf (AST/SGOT) 12 5-34 U/L Alanine Aminotransferase (ALT/SGPT) 13 0-55 U/L Alkaline Phosphatase 60 40-136 U/L Troponin I < 0.028 <0.028 NG/ML B-Type Natriuretic Peptide 464.8 H <100.0 PG/ML Total Protein 7.1 6.4-8.2 GM/DL Albumin 3.0 L 3.2-4.5 GM/DL Procalcitonin 0.21 H <0.10 NG/ML SARS-CoV-2 RNA (RT-PCR) Not Detected Not Detecte Test 04/17/22 13:05 04/17/22 15:38 04/17/22 16:01 04/17/22 16:48 Range/Units Urine Color YELLOW Urine Clarity CLEAR Urine pH 5.5 5-9 Urine Specific [place] 1.025 H 1.016-1.022 Urine Protein 2+ H NEGATIVE Urine Glucose (UA) 3+ H NEGATIVE Urine Ketones NEGATIVE NEGATIVE Urine Nitrite NEGATIVE NEGATIVE Urine Bilirubin NEGATIVE NEGATIVE Urine Urobilinogen 0.2 < = 1.0 MG/DL Urine Leukocyte Esterase 1+ H NEGATIVE Urine RBC (Auto) 1+ H NEGATIVE Urine RBC RARE /HPF Urine WBC 50-100 H /HPF Urine Crystals NONE /LPF Urine Bacteria LARGE H /HPF Urine Casts NONE /LPF Urine Mucus NEGATIVE /LPF Urine Culture Indicated YES Glucometer 75 70-110 MG/DL Blood Gas Puncture Site RIGHT RADIAL Blood Gas Patient Temperature 35.3 Arterial Blood pH 7.47 H 7.37-7.43 Arterial Blood Partial Pressure CO2 41 35-45 MMHG Arterial Blood Partial Pressure O2 55 L 79-93 MMHG Arterial Blood HCO3 30 H 23-27 MMOL/L Arterial Blood Total CO2 31.6 H 21.0-31.0 MMOL/L Arterial Blood Oxygen Saturation 95 94-100 % Arterial Blood Base Excess 6.1 H -2.5-2.5 MMOL/L Martin Test YES-POS Blood Gas Ventilator Setting YES Blood Gas Inspired Oxygen NA Sodium Level 147 H 135-145 MMOL/L Potassium Level 5.1 H 3.6-5.0 MMOL/L Chloride Level 112 H 98-107 MMOL/L Carbon Dioxide Level 27 21-32 MMOL/L Anion Gap 8 5-14 MMOL/L Blood Urea Nitrogen 28 H 7-18 MG/DL Creatinine 1.54 H 0.60-1.30 MG/DL Estimat Glomerular Filtration Rate 52 BUN/Creatinine Ratio 18 Glucose Level 68 L 70-105 MG/DL Calcium Level 9.0 8.5-10.1 MG/DL Triglycerides Level 104 <150 MG/DL My Orders Orders - PHYLLISNILESH ALVES DO Arterial Blood Gas (04/17/22 11:38) Cbc With Automated Diff (04/17/22 11:38) Comprehensive Metabolic Panel (04/17/22 11:38) Lactic Acid Analyzer (04/17/22 11:38) Chest 1 View, Ap/Pa Only (04/17/22 11:38) Ct Head Wo (04/17/22 11:38) Covid 19 Inhouse Test (04/17/22 11:38) Troponin I Nila (04/17/22 11:38) Ekg Tracing (04/17/22 11:38) Propofol Injection (Diprivan Injection) (04/17/22 11:45) Fentanyl Drip Pre-Mix (Fentanyl Drip Pre (04/17/22 11:45) Blood Culture (04/17/22 11:41) Urinalysis (04/17/22 11:41) Protime With Inr (04/17/22 11:41) Ed Iv/Invasive Line Start (04/17/22 11:41) Vital Signs Adult Sepsis Patie Q15M (04/17/22 11:41) O2 (04/17/22 11:41) Propofol Drip (Icu) (Diprivan Drip (Icu) (04/17/22 11:42) Calc Gluc 1 Gm/100 Ml Ivpb (Calcium Gluc (04/17/22 12:15) Insulin (Regular) Human (Novolin R (Per (04/17/22 12:15) D50w (Emergency) Syringe (Dextrose 50% 5 (04/17/22 12:15) Sodium Bicarbonate 8.4% Syr (Sodium Bica (04/17/22 12:15) Bnp Nila (04/17/22 12:35) Procalcitonin (Pct) (04/17/22 12:35) Furosemide Injection (Lasix Injection) (04/17/22 12:45) Meropenem (Merrem 1000 Mg) (04/17/22 12:45) Ed Admission (Communication) (04/17/22 12:58) Urine Culture (04/17/22 13:05) Medications Given in ED Current Medications Medications Dose Ordered Sig/Shelbi Route Start Time Stop Time Status Last Admin Dose Admin Calcium Gluconate/ Sodium Chloride 100 ml @ 120 mls/hr ONCE ONCE IV 04/17/22 12:15 04/17/22 13:04 DC 04/17/22 12:40 120 MLS/HR Dextrose 50 ml ONCE ONCE IV 04/17/22 12:15 04/17/22 12:16 DC 04/17/22 12:40 50 ML Furosemide 40 mg ONCE ONCE IVP 04/17/22 12:45 04/17/22 12:46 DC 04/17/22 13:01 40 MG Insulin Human Regular 10 unit ONCE ONCE IV 04/17/22 12:15 04/17/22 12:16 DC 04/17/22 12:40 10 UNIT Meropenem 1000 mg/ Sodium Chloride 100 ml @ 200 mls/hr ONCE ONCE IV 04/17/22 12:45 04/17/22 13:14 DC 04/17/22 13:01 200 MLS/HR Sodium Bicarbonate 50 meq ONCE ONCE IV 04/17/22 12:15 04/17/22 12:16 DC 04/17/22 12:40 50 MEQ Vital Signs/I&O 04/17/22 04/17/22 04/17/22 04/17/22 11:12 11:15 11:50 11:56 Temp 35.6 Pulse 82 55 57 Resp 16 20 B/P (MAP) Pulse Ox 85 100 O2 Delivery Room Air Non Rebreather O2 Flow Rate 15.00 FiO2 50 04/17/22 04/17/22 04/17/22 04/17/22 13:10 13:52 14:00 14:26 Pulse 46 45 47 44 Resp 20 20 19 B/P (MAP) 152/80 126/61 (82) Pulse Ox 95 95 94 O2 Delivery Mechanical Ventilator Mechanical Ventilator O2 Flow Rate 70.00 40.00 FiO2 40 04/17/22 04/17/22 04/17/22 04/17/22 15:00 15:48 16:00 16:13 Temp 35.6 Pulse 43 43 46 44 Resp 28 B/P (MAP) 149/92 (111) 144/62 (89) 144/62 Pulse Ox 95 95 97 O2 Delivery Mechanical Ventilator Mechanical Ventilator O2 Flow Rate 40.00 40.00 04/17/22 04/17/22 04/17/22 04/17/22 17:00 17:10 17:15 17:20 Temp 34.0 Pulse 35 39 40 43 B/P (MAP) 129/92 (104) 129/92 127/61 127/61 Pulse Ox 97 O2 Delivery Mechanical Ventilator O2 Flow Rate 40.00 04/17/22 17:26 Pulse 46 B/P (MAP) 127/61 Initial ECG Rhythm: S.Brant Initial ECG Intervals: Normal Initial ECG Impression: Normal Comment Sinus bradycardia 54 bpm. Normal intervals. Normal axis. No ST or T wave abnormalities. No ectopy. Diagnostic Imaging Diagonstic Imaging: Xray Comments [facility], [place] NAME: [facility] REC#: [id number] PT STATUS: REG ER : 1965 PHYSICIAN: NILESH FERGUOSN DO ADMIT DATE: 04/17/22/ER Draft Date of Exam:04/17/22 CHEST 1 VIEW, AP/PA ONLY INDICATION: resp failure, AMS. TECHNIQUE: Single view chest 11:35 AM. CORRELATION STUDY: 02/23/2022 FINDINGS: Endotracheal tube has been placed. Tip is projecting over the lower trachea, proximally just under 1 cm above the demi. Heart size enlarged. Mediastinum prominent and there is pulmonary vascular congestion. Perihilar edema overall appears increased and worsened slightly from prior. Extensive 5 lobe pulmonary opacities right greater than left. Probable moderate right pleural effusion. IMPRESSION: 1. Endotracheal tube projects in lower trachea, approximately slightly less than 1 cm above the demi. 2. Findings suggesting likely significant congestive heart failure/fluid overload. Extensive bilateral infiltrate-like opacities right greater than left favoring edema along pleural effusion. Post infiltrate would be difficult to exclude. Dictated on workstation # [id number] Dict: 04/17/22 1207 Trans: 04/17/22 1231 [facility] [id number] Interpreted by: ALLY WILLIAM DO Critical Care Note Critical Care Start Time: 11:10 Departure Communication (Admissions) Patient presented in extremis, obtunded only responsive to deep painful stimuli. Differential diagnosis initially includes massive pulmonary embolus, blood sugar complications, overdose or drug effect, pulmonary edema, ACS, CVA. Intubated emergently to maintain his airway after arrival IV access obtained. Chest x-ray shows diffuse pulmonary edema. Given his history of recent pneumonia as well and had not started him on Zosyn as well as given some Lasix. I did treat his hyperkalemia once identified with standard treatment. He has no obvious EKG changes outside of some slight bradycardia. He has been stable on the ventilator.. Dr. Crain who accepts patient in admission with a CT scan of his brain in route to the ICU pending. Impression Primary Impression: Unresponsive state Additional Impressions: Respiratory acidosis Hyperkalemia JARRET (acute kidney injury) Pulmonary edema Qualified Codes: J81.0 - Acute pulmonary edema Disposition: ADMITTED INPATIENT Condition: Critical Admissions Decision to Admit Reason: Admit from ER (General) Departure-Patient Inst. Referrals: ELIZABETH QUESADA MD (PCP/Family) Primary Care Physician NILESH FERGUSON DO Apr 17, 2022 11:44
[2022-04-17 11:47] LABS: LYMPHOCYTES % (AUTO) 14 % (12-44); MONOCYTES % (AUTO) 12 % (0-12)
[2022-04-17] MEDS: PROPOFOL INJECTION 50 ML IV SCH ×5 (11:48→20:17)
[2022-04-17 11:49] LABS: BASOPHILS # (AUTO) 0.1 10^3/uL (0.0-0.1); BASOPHILS % (AUTO) 1 % (0-10); EOSINOPHILS # (AUTO) 0.1 10^3/uL (0.0-0.3); EOSINOPHILS % (AUTO) 1 % (0-10); HEMATOCRIT 33 % (40-54); HEMOGLOBIN 9.2 g/dL (13.3-17.7); LYMPHOCYTES # (AUTO) 0.9 10^3/uL (1.0-4.0); MEAN CORPUSCULAR HEMOGLOBIN 26 pg (25-34); MEAN CORPUSCULAR HGB CONC 28 g/dL (32-36); MEAN CORPUSCULAR VOLUME 92 fL (80-99); MONOCYTES # (AUTO) 0.7 10^3/uL (0.0-1.0); NEUTROPHILS # (AUTO) 4.5 10^3/uL (1.8-7.8); NEUTROPHILS % (AUTO) 72 % (42-75); PLATELET COUNT 203 10^3/uL (130-400); WHITE BLOOD COUNT 6.2 10^3/uL (4.3-11.0)
[2022-04-17 11:50] VITALS: BP 159/102
[2022-04-17 11:51] LABS: ABG BASE EXCESS 3.5 MMOL/L (-2.5-2.5); ABG OXYGEN SATURATION 99 % (94-100); ABG PO2 129 MMHG (79-93); ABG TCO2 33.6 MMOL/L (21.0-31.0)
[2022-04-17 11:53] LABS: INR 1.3 (0.8-1.4); PROTHROMBIN TIME PATIENT 17.1 SEC (12.2-14.7)
[2022-04-17 11:54] LABS: CHLORIDE 112 MMOL/L (98-107)
[2022-04-17 11:55] LABS: ABG PCO2 77 MMHG (35-45); ABG PH 7.22 (7.37-7.43)
[2022-04-17 11:55] LABS: SODIUM 144 MMOL/L (135-145)
[2022-04-17 11:56] LABS: INSPIRED O2 15L; PATIENT TEMP 35.6; VENTILATOR NO
[2022-04-17 11:56] LABS: CALCIUM 8.4 MG/DL (8.5-10.1)
[2022-04-17] MEDS: fentaNYL DRIP PRE-MIX 250 ML IV SCH (11:56)
[2022-04-17 11:57] LABS: GLUCOSE 106 MG/DL (70-105); TOTAL PROTEIN 7.1 GM/DL (6.4-8.2)
[2022-04-17 11:58] LABS: CARBON DIOXIDE 26 MMOL/L (21-32)
[2022-04-17 11:59] LABS: BILIRUBIN,TOTAL 0.5 MG/DL (0.1-1.0)
[2022-04-17 12:00] LABS: ALKALINE PHOSPHATASE 60 U/L (40-136); CREATININE SERUM 1.55 MG/DL (0.60-1.30); GFR ESTIMATED 52
[2022-04-17 12:01] LABS: BUN/CREATININE RATIO 18
[2022-04-17 12:03] LABS: ALANINE AMINOTRANSFERASE 13 U/L (0-55)
[2022-04-17 12:08] LABS: POTASSIUM 6.7 MMOL/L (3.6-5.0)
[2022-04-17] MEDS ORDERED: DEXTROSE 50% 50 ML (IMS) SYR IV ONE ×2 (12:15→18:00)
[2022-04-17] MEDS ORDERED: inSUlin (REGULAR) HUMAN 1 UNIT/0.01 ML (CHARGE PER UNIT) IV ONE (12:15)
[2022-04-17] MEDS ORDERED: SODIUM BICARB 8.4% 50 MEQ/50 ML (ABBOTT) SYR IV ONE (12:15)
[2022-04-17] MEDS ORDERED: CALC GLUC 1 GM/100 ML IVPB 100 ML IV ONE (12:15)
--- NOTE | 2022-04-17 12:32 | Diagnostic Imaging Report ---
INDICATION: resp failure, AMS. TECHNIQUE: Single view chest 11:35 AM. CORRELATION STUDY: 02/23/2022 FINDINGS: Endotracheal tube has been placed. Tip is projecting over the lower trachea, proximally just under 1 cm above the demi. Heart size enlarged. Mediastinum prominent and there is pulmonary vascular congestion. Perihilar edema overall appears increased and worsened slightly from prior. Extensive 5 lobe pulmonary opacities right greater than left. Probable moderate right pleural effusion. IMPRESSION: 1. Endotracheal tube projects in lower trachea, approximately slightly less than 1 cm above the demi. 2. Findings suggesting likely significant congestive heart failure/fluid overload. Extensive bilateral infiltrate-like opacities right greater than left favoring edema along pleural effusion. Post infiltrate would be difficult to exclude. Dictated by: Dictated on workstation # [id number]
[2022-04-17] MEDS ORDERED: FUROSEMIDE 40 MG/4 ML INJ (LASIX) IVP ONE (12:45)
[2022-04-17] MEDS ORDERED: MEROPENEM 1,000 MG in NS (IVPB) 100 ML IV ONE (12:45)
--- NOTE | 2022-04-17 12:45 | History & Physical-Hospitalist ---
History of Present Illness Source: patient Date Seen 04/17/22 Time Seen by a Provider: 12:37 Attending Physician Stanislav Nunez MD PCP Admitting Physician: Attending Physician: Referring Physician Date of Admission Home Medications & Allergies Home Medications Reviewed patient Home Medication Reconciliation performed by pharmacy medication reconciliations fire technician and/or nursing. Patients Allergies have been reviewed. Allergies Allergies Coded Allergies penicillin V (Unverified Allergy, Unknown, 10/01/08) erythromycin base (Unverified Adverse Reaction, Mild, VOMITING, 03/18/13) Past Rrtmbmo-Jlrktx-Edfiac Hx Patient Social History Smoking Status: Unknown if Ever Smoked Substance use?: Unable to obtain Alcohol Use?: Unable to obtain Immunizations Up To Date First/Initial COVID19 Vaccinat: 07/16/20 Second COVID19 Vaccination Bryce: 08/05/20 Tetanus Booster (TDap): Unknown Hepatitis A: No Hepatitis B: No Date of Pneumonia Vaccine: Mar 20, 2013 Seasonal Allergies Seasonal Allergies: No Current Status Advance Directives: No Primary Language: Citizen Of [place] Preferred Spoken Language: Citizen Of [place] Past Medical History Surgeries: Cardiac, Dialysis, Orthopedic, Renal, Vascular Surgery Asthma, Pneumonia Currently Using CPAP: No (PT STATES HE IS SUPPOSED TO BUT HE DOES NOT.) Currently Using BIPAP: No Atrial Fibrillation, Cardiomyopathy, Coronary Artery Disease, High Cholesterol, Hypertension, Peripheral Vascular, Valvular Heart Disease Neuropathy Sexually Transmitted Disease: No HIV/AIDS: No Kidney Stones, Renal Failure Colitis, Gastroesophageal Reflux, Diverticulosis, Polyps, Hiatal Hernia Arthritis, Fibromyalgia, Rheumatoid Arthritis, Chronic Back Pain Diabetes, Insulin dep Glaucoma Loss of Vision: Bilateral Hearing Impairment: Denies Sleep Difficulties, Bipolar, Depression Blood Disorders: Yes (ANEMIA, BLOOD CLOTS ) Past Medical History 1. Diabetes Mellitus 2. Hypertension 3. Seizure Disorder- history of grand mal per pt. report (no records of neurology evaluation) 4. Bi-polar Disorder 5. Depression 6. Anxiety 7. Peripheral Neuropathy 8. History of Acute Renal Failure requiring hemodialysis 2003. 9. History of superficial RUE venous thrombus due to central line placement 10. History of chronic joint pain. 11. Chronic Peripheral Edema 12. Tobaccoism 13. 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 14. Diastolic dysfunction due to uncontrolled hypertension 15. Mild coronary artery disease per cath 16. Hyperlipidemia 17. Non-compliance with follow up and medication use 18. Hx ischemic Right Frontoparietal Infarct in the Right MCA distribution 06/2015 19. Hx of second right MCA stroke in 11/2015 20. Paroxysmal atrial fibrillation Family Medical History Cardiovascular disease 19 MOTHER G8 BROTHER Colon cancer 19 MOTHER Completed stroke 19 FATHER Dementia 19 FATHER Diabetes mellitus 19 MOTHER FHx: macular degeneration 19 FATHER Myocardial infarction 19 MOTHER Heart Disease, Diabetes, Hypertension Physical Exam Physical Exam Vital Signs Vital Signs - First Documented 04/17/22 04/17/22 04/17/22 11:12 11:15 11:50 Temp 35.6 Pulse 82 Resp 16 Pulse Ox 85 O2 Delivery Room Air O2 Flow Rate 15.00 FiO2 50 Capillary Refill : Less Than 3 Seconds Height, Weight, BMI Height: 6'2" Weight: 250lbs. 0.0oz. 113.663225wh; 46.00 BMI Method:Estimated Results Results/Procedures Labs Laboratory Tests 04/17/22 11:26 Patient resulted labs reviewed. Imaging: Reviewed Imaging Report Imaging [facility], [place] NAME: SERG KEBEDE Gretel [facility] REC#: [id number] PT STATUS: REG ER : 1965 PHYSICIAN: NILESH FERGUSON DO ADMIT DATE: 04/17/22/ER Draft Date of Exam:04/17/22 CHEST 1 VIEW, AP/PA ONLY INDICATION: resp failure, AMS. TECHNIQUE: Single view chest 11:35 AM. CORRELATION STUDY: 02/23/2022 FINDINGS: Endotracheal tube has been placed. Tip is projecting over the lower trachea, proximally just under 1 cm above the demi. Heart size enlarged. Mediastinum prominent and there is pulmonary vascular congestion. Perihilar edema overall appears increased and worsened slightly from prior. Extensive 5 lobe pulmonary opacities right greater than left. Probable moderate right pleural effusion. IMPRESSION: 1. Endotracheal tube projects in lower trachea, approximately slightly less than 1 cm above the demi. 2. Findings suggesting likely significant congestive heart failure/fluid overload. Extensive bilateral infiltrate-like opacities right greater than left favoring edema along pleural effusion. Post infiltrate would be difficult to exclude. Dictated on workstation # [id number] Dict: 04/17/22 1207 Trans: 04/17/22 1231 CONSTANTINO [id number] Interpreted by: ALLY WILLIAM DO Electronically signed by: Assessment/Plan Admission Diagnosis Acute hypercapnic respiratory failure Admission Status: Inpatient Order (span 2 midnights) Reason for Inpatient Admission: see below Assessment and Plan Acute hypercapnic respiratory failure CO2 Narcosis Pulm edema Intubated in ER Admit to ICU TeleICU consulted for vent management MAT protocol Continue IV abx Continue lasix JARRET on CKD stage 3a Hyperkalemia Baseline creatinine around 1.2 1.55 today Lasix, calcium, insulin, dextrose, and bicarb given in ER for hyperkalemia Check BMP upon arrival to ICU Will avoid IVF currently due to minimal rise in creatinine and pulm edema on CXR as he likely need diuresis Monitor UOP T2DM BS 106 on arrival SSI HTN AFib Bipolar disorder BPH Resume home meds as appropriate Morbid obesity Clinically significant, no acute management needs DVT ppx: Already on eliquis Diagnosis/Problems Diagnosis/Problems (1) Late effects of CVA (cerebrovascular accident) Status: Acute (2) Acute kidney injury (nontraumatic) Status: Resolved (3) Seizure disorder Status: Chronic (4) Hypertension Status: Chronic (5) Hyperkalemia (6) Unresponsive state Status: Acute (7) Respiratory acidosis Status: Acute (8) CKD (chronic kidney disease) Status: Chronic (9) Obesity hypoventilation syndrome (10) T2DM (type 2 diabetes mellitus) Status: Acute (11) Anemia in CKD (chronic kidney disease) (12) CHF (congestive heart failure) Status: Acute (13) Insulin dependent diabetes mellitus (14) Morbid obesity Status: Chronic (15) COPD (chronic obstructive pulmonary disease) (16) Atrial fibrillation (17) Pulmonary edema Status: Acute ANA MCGUIRE MD Apr 17, 2022 12:45
[2022-04-17 13:10] LABS: BILIRUBIN,URINE NEGATIVE (NEGATIVE); CLARITY,URINE CLEAR; COLOR,URINE YELLOW; GLUCOSE, URINE (UA) 3+ (NEGATIVE); KETONES,URINE NEGATIVE (NEGATIVE); LEUKOCYTE ESTERASE ,URINE 1+ (NEGATIVE); NITRITE,URINE NEGATIVE (NEGATIVE); PH,URINE 5.5 (5-9); PROTEIN,URINE 2+ (NEGATIVE)
[2022-04-17] MEDS ORDERED: ACETAMINOPHEN 325 MG TABLET PO PRN (13:15)
[2022-04-17 13:21] LABS: RBC,URINE RARE /HPF
[2022-04-17 13:22] LABS: BACTERIA,URINE LARGE /HPF; WBC,URINE 50-100 /HPF
[2022-04-17] MEDS ORDERED: ONDANSETRON 4 MG/2 ML (SDV) Z0FRAN IV PRN (13:30)
[2022-04-17] MEDS ORDERED: ETOMIDATE IV SOLN 20 MG/10 ML VIAL IV ONE (13:37)
[2022-04-17] MEDS ORDERED: ROCURONIUM 10 MG/ML 5 ML SYRINGE IV ONE (13:37)
[2022-04-17 13:52] VITALS: BP 126/78
--- NOTE | 2022-04-17 14:28 | Diagnostic Imaging Report ---
EXAMINATION: CT head without contrast. TECHNIQUE: Multiple contiguous axial images were obtained through the brain without the use of intravenous contrast. All CT scans use one or more of the following dose optimizing techniques: automated exposure control, MA and/or KvP adjustment based on patient size and exam type or iterative reconstruction. HISTORY: Altered mental status COMPARISON: 12/04/2021 FINDINGS: There is an old right MCA territory infarct. There is ex vacuo dilation of the right lateral ventricle. No mass effect or midline shift. The ventricles are normal in size and configuration. Basilar cisterns are patent. There are no intra- or extra-axial fluid collections. There is no intracranial hemorrhage. The orbits are normal. There is bilateral maxillary sinus mucosal disease. Mastoid air cells are clear. No soft tissue abnormality is seen. No osseus lesions or fractures are seen. IMPRESSION: 1. No acute intracranial abnormality. Dictated by: Dictated on workstation # [id number]
--- NOTE | 2022-04-17 14:38 | Tele-ICU Consult ---
History of Present Illness History of Present Illness Date Seen by Provider: Apr 17, 2022 Time Seen by Provider: 14:32 Date of Admission 04/17/22 History of Present Illness 57 yr old male resident of [facility] admitted due to unresponsiveness and he is intubated in ED. chxr suggestive of acute pulmonary edema. lab data suggestive that he has acute and chr. hypercarbic and hypoxic respiratory failure, possible sepsis and acute on chr. kideney disease with hyperkalemia. CT brain negative he has recently had rt great toe amputation for osteomylitis. has hx of HTN, DM2, iron deficiency anemia diastolic chf, PAD, CALCIUM, BICARB, INSULIN GIVEN FOR HYPERKALEMIA.. Allergies and Home Medications Allergies Coded Allergies: penicillin V (Unverified Allergy, Unknown, 10/01/08) erythromycin base (Unverified Adverse Reaction, Mild, VOMITING, 03/18/13) Home Medications Acetaminophen 325 Mg Tablet, 650 MG PO Q6H PRN for PAIN-MILD (1-4), (Reported) Albuterol Sulfate 2.5 Mg/0.5 Ml Vial.neb, 2.5 MG INH Q8H PRN for SHORTNESS OF BREATH, (Reported) Amlodipine Besylate 10 Mg Tablet, 10 MG PO DAILY, (Reported) HOLD FOR PULSE <50 AND BP <100/50 Apixaban 5 Mg Tablet, 5 MG PO BID, (Reported) Aripiprazole 10 Mg Tablet, 10 MG PO DAILY, (Reported) Aspirin 81 Mg Tablet.dr, 81 MG PO DAILY, (Reported) Atorvastatin Calcium 80 Mg Tablet, 80 MG PO HS, (Reported) Brimonidine Tartrate 5 Ml Drops, 1 DROP OU BID, (Reported) Budesonide/Formoterol Fumarate 160 Mcg-4.5 Mcg/Actuation Hfa.aer.ad, 2 PUFF IH BID, (Reported) Calcium Carbonate 500 Mg Tablet, 500 MG PO Q6H PRN for HEARTBURN, (Reported) Cefdinir 300 Mg Capsule, 300 MG PO BID Prescribed by: GUALBERTO ROJAS on 04/22/22 1237 Diclofenac Sodium 1 % Gel..gram., 1 APPLIC TP Q4H PRN for PAIN-BREAKTHROUGH, (Reported) Divalproex Sodium 250 Mg Tablet.dr, 250 MG PO TID, (Reported) Docusate Sodium 100 Mg Capsule, 100 MG PO DAILY PRN for CONSTIPATION-1ST LINE, (Reported) Doxazosin Mesylate 2 Mg Tablet, 2 MG PO HS, (Reported) Duloxetine HCl 30 Mg Capsule.dr, 30 MG PO DAILY, (Reported) Empagliflozin 25 Mg Tablet, 25 MG PO DAILY, (Reported) Furosemide 20 Mg Tablet, 60 MG PO DAILY, (Reported) TAKES 3 (20MG) TABLETS Gabapentin 100 Mg Capsule, 200 MG PO TID, (Reported) TAKES 2 (100MG) CAPS Guaifenesin/Dextromethorphan 5 Ml Liquid, 10 ML PO Q4H PRN for COUGH, (Reported) Insulin Glargine,Hum.rec.anlog 100 Unit/Ml (3 Ml) Insuln.pen, 25 UNIT SQ BID, (Reported) Insulin Lispro 200 Unit/Ml (3 Ml) Insuln.pen, 20 UNIT SQ AC, (Reported) Lactobacillus Acidophilus 1 Each Tab.chew, 1 EACH PO BID, (Reported) Loperamide HCl 2 Mg Tablet, 2 MG PO Q1H PRN for DIARRHEA, (Reported) Meclizine HCl 25 Mg Tablet, 25 MG PO DAILY PRN for VERTIGO, (Reported) Melatonin 3 Mg Tablet, 3 MG PO HS, (Reported) Metoprolol Tartrate 100 Mg Tablet, 100 MG PO BID, (Reported) HOLD IF PULSE IS LESS THAN 50 AND IF BLOOD PRESSURE LESS THAN 100/50 Nicotine 7 Mg/24 Hour Patch.td24, 7 MG TD DAILY, (Reported) Ondansetron 4 Mg Tab.rapdis, 4 MG PO Q8H PRN for NAUSEA/VOMITING-1ST LINE, (Reported) Ped Multivit #43/Iron Fumarate 18 Mg Iron Tab.chew, 18 MG PO DAILY, (Reported) Polyethylene Glycol 3350 17 Gm Powd.pack, 17 GM PO Q12H PRN for CONSTIPATION-2ND LINE, (Reported) Potassium Chloride 10 Meq Capsule.er, 10 MEQ PO DAILY, (Reported) Simethicone 125 Mg Capsule, 125 MG PO Q8H PRN for GAS, (Reported) Tamsulosin HCl 0.4 Mg Cap, 0.4 MG PO DAILY, (Reported) Tiotropium [place] 4 Gm Mist.inhal, 2 PUFF IH DAILY, (Reported) Tramadol HCl 50 Mg Tablet, 50 MG PO Q8HR PRN for PAIN-MODERATE (5-7), (Reported) Past Medical/Social/Family Hx Patient Social History Smoking Status: Unknown if Ever Smoked Substance use?: Unable to obtain Alcohol Use?: Unable to obtain Immunizations Up To Date First/Initial COVID19 Vaccinat: 07/16/20 Second COVID19 Vaccination Bryce: 08/05/20 Tetanus Booster (TDap): Unknown Hepatitis A: No Hepatitis B: No TB Skin Test: None Date of Pneumonia Vaccine: Mar 20, 2013 Current Status Advance Directives: No Primary Language: [place] Preferred Spoken Language: [place] Past Medical History Past Medical History 1. Diabetes Mellitus 2. Hypertension 3. Seizure Disorder- history of grand mal per pt. report (no records of neurology evaluation) 4. Bi-polar Disorder 5. Depression 6. Anxiety 7. Peripheral Neuropathy 8. History of Acute Renal Failure requiring hemodialysis 2003. 9. History of superficial RUE venous thrombus due to central line placement 10. History of chronic joint pain. 11. Chronic Peripheral Edema 12. Tobaccoism 13. 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 14. Diastolic dysfunction due to uncontrolled hypertension 15. Mild coronary artery disease per cath 16. Hyperlipidemia 17. Non-compliance with follow up and medication use 18. Hx ischemic Right Frontoparietal Infarct in the Right MCA distribution 06/2015 19. Hx of second right MCA stroke in 11/2015 20. Paroxysmal atrial fibrillation Review of Systems Constitutional: see HPI, weakness, other (INTUBATED) Focused Exam Lactate Level 04/17/22 11:26: Lactic Acid Level 0.51 Height, Weight, BMI Height: 6'2" Weight: 250lbs. 0.0oz. 113.803142hn; 46.00 BMI Method:Estimated Lactic Acid Level Laboratory Tests Test 04/17/22 11:26 Lactic Acid Level 0.51 MMOL/L (0.50-2.00) Exam Exam Patient acknowledged, consented, and participated in this virtual visit which was conducted using real time audio/video Vital Signs Date Time Temp Pulse Resp B/P (MAP) Pulse Ox O2 Delivery O2 Flow Rate FiO2 04/17/22 14:26 44 04/17/22 14:00 47 19 126/61 (82) 94 Mechanical Ventilator 40.00 04/17/22 13:52 45 20 95 40 04/17/22 13:10 46 20 152/80 95 Mechanical Ventilator 70.00 04/17/22 11:56 57 04/17/22 11:50 55 20 100 50 04/17/22 11:15 Non Rebreather 15.00 04/17/22 11:12 35.6 82 16 85 Room Air Height & Weight Height: 6'2" Weight: 250lbs. 0.0oz. 113.703694ud; 46.00 BMI Method:Estimated General Appearance: Other (intubated and sedated) Capillary Refill: Less Than 3 Seconds Gastrointestinal: normal bowel sounds, no organomegaly Results Lab Laboratory Tests 04/17/22 11:26 Assessment/Plan Assessment/Plan 1. ACUTE ON CHR CHF 2. ACUTE AND CHR. HYPERCARBIC RESPIRATORY FAILURE 3. AC AND CHR. KIDNEY DISEASE WITH HYPER KALEMIA 4. MORBID OBESITY. 1. CONTINUE CURRENT VENT SETTINGS AND REPEAT ABG AND BMP. 2. IV LASIX PER BEDSIDE PHYSICIANS 3 .IV ABX'S PER PRIMARY CARE 4.DVT PROPHYLAXIS AND GI PROPHYLAXIS 5. WILL GIVE ANTI HYPERKALEMIA MEDS NEEDED Critical Care: Ventilator Management Time spent with patient (mins): 25 CLARISA KEMP MD Apr 17, 2022 14:38
[2022-04-17] MEDS ORDERED: DEXTROSE 50% 50 ML (IMS) SYR IV NR (15:30)
[2022-04-17] MEDS ORDERED: inSUlin (REGULAR) HUMAN 1 UNIT/0.01 ML (CHARGE PER UNIT) IV NR (15:30)
[2022-04-17] MEDS ORDERED: SODIUM BICARB 8.4% 50 MEQ/50 ML (ABBOTT) SYR IV NR (15:30)
[2022-04-17] MEDS: CALC GLUC 1 GM/100 ML IVPB 100 ML IV SCH ×2 (15:43→16:53)
[2022-04-17 15:48] VITALS: BP 149/92
[2022-04-17] MEDS ORDERED: inSUlin ASPART (NovoLOG) 1 UNIT/0.01 ML (CHARGE PER UNIT) SC SCH (16:00)
[2022-04-17] MEDS: PROPOFOL DRIP (ICU) 100 ML IV SCH ×2 (16:13→20:15)
[2022-04-17] MEDS ORDERED: ATROPINE INJECTION 1 MG/10 ML SYR (ABBOTT) ONE (16:15)
[2022-04-17 16:35] LABS: ABG BASE EXCESS 6.1 MMOL/L (-2.5-2.5); ABG OXYGEN SATURATION 95 % (94-100); ABG PCO2 41 MMHG (35-45); ABG PH 7.47 (7.37-7.43); ABG PO2 55 MMHG (79-93); ABG TCO2 31.6 MMOL/L (21.0-31.0)
[2022-04-17 16:43] LABS: ALLENS TEST YES-POS; PATIENT TEMP 35.3; VENTILATOR YES
[2022-04-17] MEDS ORDERED: DOPamine DRIP 250 ML IV ONE (17:04)
[2022-04-17 17:08] LABS: POTASSIUM 5.1 MMOL/L (3.6-5.0)
[2022-04-17] MEDS: DOPamine DRIP 250 ML IV SCH (17:10)
[2022-04-17 17:14] LABS: CREATININE SERUM 1.54 MG/DL (0.60-1.30)
[2022-04-17] MEDS ORDERED: DEXTROSE 50% 50 ML (IMS) SYR ONE (17:56)
[2022-04-17] MEDS: inSUlin ASPART (NovoLOG) 1 UNIT/0.01 ML (CHARGE PER UNIT) SC SCH (18:11)
[2022-04-17] MEDS: RT-ALBUTEROL/IPRATROPIUM 3 ML (DUONEB) VIAL INH SCH ×2 (18:36→22:21)
[2022-04-17 18:37] VITALS: BP 169/82
[2022-04-17] MEDS ORDERED: NS IV 500 ML 500 ML IV PRN (21:00)
[2022-04-17 22:24] VITALS: BP 160/71
[2022-04-18] MEDS: PROPOFOL DRIP (ICU) 100 ML IV SCH ×8 (00:06→21:28)
[2022-04-18] MEDS: inSUlin ASPART (NovoLOG) 1 UNIT/0.01 ML (CHARGE PER UNIT) SC SCH ×4 (00:07→18:49)
[2022-04-18] MEDS ORDERED: LIDOCAINE UROJET 2% GEL 10 ML PKG ONE (00:33)
[2022-04-18] MEDS: PROPOFOL INJECTION 50 ML IV SCH ×4 (00:37→08:38)
[2022-04-18] MEDS ORDERED: LIDOCAINE UROJET 2% GEL 10 ML PKG TOP ONE (00:45)
[2022-04-18 02:25] VITALS: BP 126/70
[2022-04-18] MEDS: RT-ALBUTEROL/IPRATROPIUM 3 ML (DUONEB) VIAL INH SCH ×6 (02:25→22:24)
[2022-04-18 03:40] LABS: ABG BASE EXCESS 3.7 MMOL/L (-2.5-2.5); ABG OXYGEN SATURATION 92 % (94-100); ABG PCO2 47 MMHG (35-45); ABG PO2 59 MMHG (79-93)
[2022-04-18 03:48] LABS: ALLENS TEST YES-POS
[2022-04-18 03:49] LABS: PATIENT TEMP 36.1; VENTILATOR YES
[2022-04-18 03:54] LABS: BASOPHILS % (AUTO) 0 % (0-10); EOSINOPHILS # (AUTO) 0.1 10^3/uL (0.0-0.3); EOSINOPHILS % (AUTO) 1 % (0-10); HEMATOCRIT 30 % (40-54); HEMOGLOBIN 8.8 g/dL (13.3-17.7); LYMPHOCYTES # (AUTO) 0.8 10^3/uL (1.0-4.0); LYMPHOCYTES % (AUTO) 9 % (12-44); MEAN CORPUSCULAR HEMOGLOBIN 26 pg (25-34); MEAN CORPUSCULAR HGB CONC 29 g/dL (32-36); MEAN CORPUSCULAR VOLUME 88 fL (80-99); MONOCYTES # (AUTO) 0.9 10^3/uL (0.0-1.0); MONOCYTES % (AUTO) 11 % (0-12); NEUTROPHILS % (AUTO) 78 % (42-75); PLATELET COUNT 205 10^3/uL (130-400); WHITE BLOOD COUNT 8.9 10^3/uL (4.3-11.0)
[2022-04-18 03:59] LABS: ALBUMIN 2.6 GM/DL (3.2-4.5); BILIRUBIN,TOTAL 0.6 MG/DL (0.1-1.0); CALCIUM 8.8 MG/DL (8.5-10.1); CREATININE SERUM 1.53 MG/DL (0.60-1.30); MAGNESIUM 1.9 MG/DL (1.6-2.4); PHOSPHORUS 4.5 MG/DL (2.3-4.7); POTASSIUM 5.1 MMOL/L (3.6-5.0); TOTAL PROTEIN 6.3 GM/DL (6.4-8.2)
[2022-04-18] MEDS: MAGNESIUM 1 GM/100 ML IVPB 100 ML IV SCH (05:46)
[2022-04-18] MEDS: POTASSIUM CL 10MEQ/50ML IVPB 50 ML IV SCH (05:46)
[2022-04-18] MEDS: KCL 20 MEQ TAB (K-DUR) PO SCH (05:51)
--- NOTE | 2022-04-18 06:40 | Occ Therapy Progress Note ---
Therapy Progress Note OT orders received. OT to monitor pt's status then will initiate treatment when pt is medically stable and able to actively participate in skilled therapy. NICO ZAZUETA Apr 18, 2022 06:40
[2022-04-18 07:00] VITALS: BP 117/55
--- NOTE | 2022-04-18 07:49 | Physical Therapy Progress Note ---
Therapy Progress Note Patient currently sedated and intubated. PT will continue to monitor patient status and initiate treatment when patient is alert and able to actively participate with skilled therapy. SAYRA HI PT Apr 18, 2022 07:49
[2022-04-18] MEDS: fentaNYL DRIP PRE-MIX 250 ML IV SCH ×2 (08:27→22:58)
[2022-04-18] MEDS: PANTOPRAZOLE 40 MG (PROTONIX) VIAL IV SCH (08:27)
--- NOTE | 2022-04-18 08:50 | Tele-ICU Progress Note ---
Subjective Date Seen by a Provider: Apr 18, 2022 Time Seen by a Provider: 08:46 Subjective/Events-last exam Tele-ICU Physician , Progress Note ) Available chart/ vitals / labs / Images reviewed Video assessment done using teleICU camera, rest of exam as per RN Discussed with RN Events overnight : Afebrile hemodynamically stable Respiratory - I/O = Drips: Pressors- no VENT SETTINGS and ABG reviewed Sedation: RASS Not candidate for SBTContraindications : Cardiovascular Stability /Sedation Score / FI02/PEEP / ABG / CXR Consultants: Hospital course: (04/17) 57 y M found at medical facility found unresponsive with pulse INTUBATED protect airway possible PNA and UTI, hyperkalemia with reversal A/P Acute resp failure, presumed pulm edema - -AC 550 16 45% +5 - diuresis as per cards Pulm edema - ECHO 02/2022- EF 55% , difficult study , no RVSP measured - cards consulted , ECHO pending UNresponsive on admission -CTH - no acute findings - due to CO2 retention Possible UTI + GNR in sputum 04/17 - will resume abx - rocephin to start ( discussed with pharmacy ) - recheck PCT , await for Cx COPD - cont nebs , no need for steroids Chronic resp failure - ? OHS + COPD JARRET/ CKD , Hyperkalemia - ( requiring HD in 2003) - stable with some inprovement - follow K PAF - rate controlled - was on eliquis CHANGE MANAGEMENT FACILITATOR - to contionue DM - -ISS - periph neuropathy - neurontin to resume latter chronic DVTs s/p remote IVC filter, - Eliquis to cont Anemia - no active bleeding , cont to monitor h/o R MCA CVA 06/2015 and 11/2015 - monitor h/o SZ ? reported by patient on previous admission - depacote 250 tid - ? bipolar tx vs sz - will resume H/o RA - not on immunomodulators Start TF Lines : R frm line 04/17 , (Central Line Necessity Reviewed) Ott: can not be placed , external catheter applied OG: Nutrition: Analgesia: Anxiety/ delirium VTE Prophylaxis: Stress Ulcer Prophylaxis:ppi Plans in collaboration with bedside consultants and IM MDs. Discussed with RN to reach out if any questions or concerns A total of 35 minutes of critical care time was devoted to this patient today, required to treat and/or prevent further deterioration of critical care condition ( as above ) . I am remotely monitoring this patient from another state. I am unable to do the bedside exam, and history/physical and pertinent information is taken from other notes in the computer and bedside staff. I cannot take responsibility for the accuracy of this information. Sepsis Event Evaluation Height, Weight, BMI Height: 6'2" Weight: 250lbs. 0.0oz. 113.503159ap; 49.24 BMI Method:Estimated Focused Exam Lactate Level 04/17/22 11:26: Lactic Acid Level 0.51 Exam Exam Patient acknowledged, consented, and participated in this virtual visit which was conducted using real time audio/video Vital Signs Date Time Temp Pulse Resp B/P (MAP) Pulse Ox O2 Delivery O2 Flow Rate FiO2 04/18/22 08:27 62 139/68 04/18/22 08:04 62 117/55 04/18/22 08:00 36.2 66 48 150/65 (93) 94 Mechanical Ventilator 45.00 04/18/22 07:04 62 04/18/22 07:00 60 16 95 45 04/18/22 07:00 36.0 69 21 117/55 (75) 95 Mechanical Ventilator 45.00 04/18/22 06:45 65 134/62 04/18/22 06:00 36.2 76 16 132/64 (96) 94 Mechanical Ventilator 45.00 04/18/22 05:00 76 18 88 04/18/22 05:00 36 62 16 113/55 (79) 95 Mechanical Ventilator 45.00 04/18/22 04:06 75 122/54 04/18/22 04:00 36 70 16 119/83 (97) 96 Mechanical Ventilator 45.00 04/18/22 03:56 36.2 16 Mechanical Ventilator 45.00 04/18/22 03:43 45 04/18/22 03:42 93 Mechanical Ventilator 45 04/18/22 03:00 36.1 68 16 139/65 (98) 95 Mechanical Ventilator 45.00 04/18/22 02:58 69 126/70 04/18/22 02:25 69 16 95 45 04/18/22 02:00 36.2 60 16 118/54 (76) 95 Mechanical Ventilator 45.00 04/18/22 01:00 66 04/18/22 01:00 36.3 66 16 130/71 (87) 95 Mechanical Ventilator 45.00 04/18/22 00:36 72 157/71 04/18/22 00:06 72 157/71 04/18/22 00:00 36.7 87 16 157/71 (85) 93 Mechanical Ventilator 45.00 04/17/22 23:41 45 04/17/22 23:37 92 Mechanical Ventilator 45 04/17/22 23:19 71 175/81 04/17/22 23:17 92 175/81 04/17/22 23:05 88 04/17/22 23:00 36.6 93 16 161/64 (94) 91 Mechanical Ventilator 45.00 04/17/22 22:24 66 16 90 50 04/17/22 22:00 36.3 63 16 172/69 (91) 90 Mechanical Ventilator 45.00 04/17/22 21:00 35.8 63 16 160/61 (94) 90 Mechanical Ventilator 45.00 04/17/22 20:15 61 165/73 04/17/22 20:13 61 165/73 04/17/22 20:00 35.4 57 16 137/68 (99) 92 Mechanical Ventilator 45.00 04/17/22 20:00 Mechanical Ventilator 45 04/17/22 19:33 45 04/17/22 19:09 56 91 40 04/17/22 19:05 56 04/17/22 19:00 35.1 59 16 167/75 (109) 90 Mechanical Ventilator 40.00 04/17/22 19:00 62 04/17/22 19:00 61 165/73 04/17/22 18:37 56 16 91 40 04/17/22 18:17 36.0 04/17/22 18:00 34.6 56 12 172/85 (114) 92 Mechanical Ventilator 40.00 04/17/22 17:26 46 127/61 04/17/22 17:20 43 127/61 04/17/22 17:15 40 127/61 04/17/22 17:10 39 129/92 04/17/22 17:00 34.0 35 129/92 (104) 97 Mechanical Ventilator 40.00 04/17/22 16:20 35.3 04/17/22 16:13 44 144/62 04/17/22 16:04 Mechanical Ventilator 40 04/17/22 16:00 40 04/17/22 16:00 46 144/62 (89) 97 Mechanical Ventilator 40.00 04/17/22 15:48 35.6 43 95 04/17/22 15:09 35.3 04/17/22 15:00 43 28 149/92 (111) 95 Mechanical Ventilator 40.00 04/17/22 14:26 44 04/17/22 14:15 Mechanical Ventilator 40 04/17/22 14:10 40 04/17/22 14:08 35.5 04/17/22 14:00 47 19 126/61 (82) 94 Mechanical Ventilator 40.00 04/17/22 13:52 45 20 95 40 04/17/22 13:10 46 20 152/80 95 Mechanical Ventilator 70.00 04/17/22 11:56 57 04/17/22 11:50 55 20 100 50 04/17/22 11:15 Non Rebreather 15.00 04/17/22 11:12 35.6 82 16 85 Room Air I & O 04/18/22 07:00 Intake Total 100 ml Output Total 875 ml Balance -775 ml Height & Weight Height: 6'2" Weight: 250lbs. 0.0oz. 113.055232bs; 49.24 BMI Method:Estimated General Appearance: Other Capillary Refill: Less Than 3 Seconds Gastrointestinal: normal bowel sounds, no organomegaly Results Lab Laboratory Tests 04/17/22 11:26 04/17/22 16:48 04/18/22 03:25 Assessment/Plan Assessment/Plan JAVIER BEDOLLA MD Apr 18, 2022 08:50
--- NOTE | 2022-04-18 09:18 | Wound Care Assessment ---
Wound Care Assessment Date Seen by Provider: Apr 18, 2022 Time Seen by Provider: 09:16 Chief Complaint R. 1 toe amputation site ulcer HPI This 57 year old gentleman was admitted with acute respiratory failure and is currently mechanically ventilated and sedated. No ROS or history obtained from patient (all from hospital records both past and present). I was consulted when an ulcer to R. 1 toe was noted. Elie underwent amputation to this site on 02-09-[address] De for gangrene. He did have abnormal arterial dopplers on 02-05-22 as well with questionable high grade stenosis. Peripheral angio on 02-06-22 revealed mild PAD with <20% stenosis and nonobstructive disease to the foot. He did appear to have a prolonged course of IV antibiotics in February as well (Vancomycin). He [facility] after being found unresponsive. He did have evidence of pulmonary edema on CXR post intubation. He has a medical history significant for DM2, CHF, atrial fibrillation, CKD (previously on dialysis), CAD, PVD, and history of stroke and methamphetamine use. He is on pressor support and meropenem currently. Albumin is low but GFR is 53. He is also anemic. There is significant slough to his wound bed and it does probe to bone. I am uncertain of his wound care status as outpatient. Plan to obtain culture, cleanse daily with vashe, apply santyl with a vashe wet to dry daily. Past Medical History: Admits Diabetes Type II, Admits Heart Disease, Admits Peripheral Artery Disease Atrial fibrillation, CHF, PVD, h/o methamphetamine use and h/o CVA Smoking Status: Unknown if Ever Smoked Review of Systems Other systems Unable to obtain due to sedation and ventilation Exam Vital Signs Date Time Temp Pulse Resp B/P (MAP) Pulse Ox O2 Delivery O2 Flow Rate FiO2 04/18/22 08:27 62 139/68 04/18/22 08:00 45 04/18/22 08:00 36.2 48 94 Mechanical Ventilator 45.00 Capillary Refill : Less Than 3 Seconds General Appearance: obese Neck: other (sedated) Respiratory: other (mechanically ventilated) Neurologic/Psychiatric: other (Sedated and mechanically ventilated. Responds to tactile stimulation) Skin: normal color Skin Problem Location: other (R. 1 toe amputation site) Wound assessement: 4x2.5x2.0cm. The epithelialization is none. Drainage is large and serosanguinous, granulation is none, necrotic is large and slough the margins show epibole. The wound does probe to bone but I cannot assess its viability Results Laboratory Tests 04/17/22 11:19: Glucometer 110 04/17/22 11:20: Blood Gas Puncture Site L RAD, Blood Gas Patient Temperature 35.6, Arterial Blood pH 7.22*L, Arterial Blood Partial Pressure CO2 77*H, Arterial Blood Partial Pressure O2 129H, Arterial Blood HCO3 31H, Arterial Blood Total CO2 33.6H, Arterial Blood Oxygen Saturation 99, Arterial Blood Base Excess 3.5H, Martin Test NA, Blood Gas Ventilator Setting NO, Blood Gas Inspired Oxygen 15L 04/17/22 11:26: White Blood Count 6.2, Red Blood Count 3.58L, Hemoglobin 9.2L, Hematocrit 33L, Mean Corpuscular Volume 92, Mean Corpuscular Hemoglobin 26, Mean Corpuscular Hemoglobin Concent 28L, Red Cell Distribution Width 22.7H, Platelet Count 203, Mean Platelet Volume , Immature Granulocyte % (Auto) 0, Neutrophils (%) (Auto) 72, Lymphocytes (%) (Auto) 14, Monocytes (%) (Auto) 12, Eosinophils (%) (Auto) 1, Basophils (%) (Auto) 1, Neutrophils # (Auto) 4.5, Lymphocytes # (Auto) 0.9L, Monocytes # (Auto) 0.7, Eosinophils # (Auto) 0.1, Basophils # (Auto) 0.1, Immature Granulocyte # (Auto) 0.0, Percent Immature Platelet Fraction 10.6H, Prothrombin Time 17.1H, INR Comment 1.3, Sodium Level 144, Potassium Level 6.7#*H, Chloride Level 112H, Carbon Dioxide Level 26, Anion Gap 6, Blood Urea Nitrogen 28H, Creatinine 1.55H, Estimat Glomerular Filtration Rate 52, BUN/Creatinine Ratio 18, Glucose Level 106H, Lactic Acid Level 0.51, Calcium Level 8.4L, Corrected Calcium 9.2, Magnesium Level 2.3, Total Bilirubin 0.5, Aspartate Amino Transf (AST/SGOT) 12, Alanine Aminotransferase (ALT/SGPT) 13, Alkaline Phosphatase 60, Troponin I < 0.028, B-Type Natriuretic Peptide 464.8H, Total Protein 7.1, Albumin 3.0L, Procalcitonin 0.21H 04/17/22 12:12: SARS-CoV-2 RNA (RT-PCR) Not Detected 04/17/22 13:05: Urine Color YELLOW, Urine Clarity CLEAR, Urine pH 5.5, Urine Specific [place] 1.025H, Urine Protein 2+H, Urine Glucose (UA) 3+H, Urine Ketones NEGATIVE, Urine Nitrite NEGATIVE, Urine Bilirubin NEGATIVE, Urine Urobilinogen 0.2, Urine Leukocyte Esterase 1+H, Urine RBC (Auto) 1+H, Urine RBC RARE, Urine WBC 50-100H, Urine Crystals NONE, Urine Bacteria LARGEH, Urine Casts NONE, Urine Mucus NEGATIVE, Urine Culture Indicated YES 04/17/22 15:38: Glucometer 75 04/17/22 16:01: Blood Gas Puncture Site RIGHT RADIAL, Blood Gas Patient Temperature 35.3, Arterial Blood pH 7.47H, Arterial Blood Partial Pressure CO2 41, Arterial Blood Partial Pressure O2 55L, Arterial Blood HCO3 30H, Arterial Blood Total CO2 31.6H , Arterial Blood Oxygen Saturation 95, Arterial Blood Base Excess 6.1H, Martin Test YES-POS, Blood Gas Ventilator Setting YES, Blood Gas Inspired Oxygen NA 04/17/22 16:48: Sodium Level 147H, Potassium Level 5.1H, Chloride Level 112H, Carbon Dioxide Level 27, Anion Gap 8, Blood Urea Nitrogen 28H, Creatinine 1.54H, Estimat Glomerular Filtration Rate 52, BUN/Creatinine Ratio 18, Glucose Level 68L, Calcium Level 9.0, Triglycerides Level 104 04/17/22 18:12: Glucometer 131H 04/17/22 23:35: Glucometer 99 04/18/22 03:25: White Blood Count 8.9, Red Blood Count 3.41L, Hemoglobin 8.8L, Hematocrit 30L, Mean Corpuscular Volume 88, Mean Corpuscular Hemoglobin 26, Mean Corpuscular Hemoglobin Concent 29L, Red Cell Distribution Width 22.7H, Platelet Count 205, Mean Platelet Volume , Immature Granulocyte % (Auto) 0, Neutrophils (%) (Auto) 78H, Lymphocytes (%) (Auto) 9L, Monocytes (%) (Auto) 11, Eosinophils (%) (Auto) 1, Basophils (%) (Auto) 0, Neutrophils # (Auto) 7.0, Lymphocytes # (Auto) 0.8L, Monocytes # (Auto) 0.9, Eosinophils # (Auto) 0.1, Basophils # (Auto) 0.0, Immature Granulocyte # (Auto) 0.0, Percent Immature Platelet Fraction 7.7H, Blood Gas Puncture Site RIGHT RADIAL, Blood Gas Patient Temperature 36.1, Arterial Blood pH 7.40, Arterial Blood Partial Pressure CO2 47H, Arterial Blood Partial Pressure O2 59L, Arterial Blood HCO3 29H, Arterial Blood Total CO2 30.0, Arterial Blood Oxygen Saturation 92L, Arterial Blood Base Excess 3.7H, Martin Test YES-POS, Blood Gas Ventilator Setting YES, Blood Gas Inspired Oxygen NA, Sodium Level 151H, Potassium Level 5.1H, Chloride Level 113H, Carbon Dioxide Level 25, Anion Gap 13, Blood Urea Nitrogen 28H, Creatinine 1.53H, Estimat Glomerular Filtration Rate 53, BUN/Creatinine Ratio 18, Glucose Level 81, Calcium Level 8.8, Corrected Calcium 9.9, Phosphorus Level 4.5, Magnesium Level 1.9, Total Bilirubin 0.6, Aspartate Amino Transf (AST/SGOT) 13, Alanine Aminotransferase (ALT/SGPT) 9, Alkaline Phosphatase 49, Total Protein 6.3L, Albumin 2.6L 04/18/22 08:32: Microbiology 04/17/22 Blood Culture - Preliminary, Resulted 04/17/22 Gram Stain, Resulted Pending 04/17/22 Sputum Culture - Preliminary, Resulted Gram Negative Mina 04/17/22 Urine Culture - Preliminary, Resulted Probable Klebsiella/Enterobact Microbiology 04/17/22 Blood Culture - Preliminary, Resulted 04/17/22 Gram Stain, Resulted Pending 04/17/22 Sputum Culture - Preliminary, Resulted Gram Negative Mina 04/17/22 Urine Culture - Preliminary, Resulted Probable Klebsiella/Enterobact Assessment/Plan/Dx Assessment: 1. Non-healing ulcer R. 1 toe amputation site 2. DM2 with foot ulcer 3. PEM 4. PAD-conservative management 5. CAD with afib and CHF 6. Obesity 7. Immobilization due to mechanical ventilation Plan: 1. Cleanse daily with vashe. Apply thick layer of santyl and cover with vashe WTD. Secure with roller gauze and tape and change daily. This wound needs attention by a chronic wound care clinic upon discharge. It needs further evaluation for chronic refractory osteomyelitis and reason for non-healing following amputation. Regular debridements for healing would be recommended and would other treatment modalities. Obtain wound culture (note already on antibiotic therapy) 2. Good glycemic control recommended (per PCP) 3. Once off ventilation, protein supplementation (Glucerna) would be warranted 4. Conservative management 5. Defer to PCP 6. Weight loss advisable 7. Defer to PCP ADRIÁN MA MD Apr 18, 2022 09:18
[2022-04-18] MEDS: cefTRIAXone 2,000 MG/NS 50 ML IVPB IV SCH ×2 (09:29)
--- NOTE | 2022-04-18 09:32 | Consultation-Cardiology ---
HPI-Cardiology Cardiology Consultation Date of Consultation 04/18/22 Date of Admission Time Seen by Provider: 09:26 Indication: Acute respiratory failure HPI 57 years old gentleman with history of diabetes mellitus, COPD and morbid obesity. Admitted with acute respiratory failure, [facility], he was intu bated and ventilated. Currently he is ventilator dependent. Unable to provide any history, history was obtained by reviewing his record. Patient was hypercapnic. No reported chest pain or palpitation. Home Medications & Allergies Allergies: Coded Allergies: penicillin V (Unverified Allergy, Unknown, 10/01/08) erythromycin base (Unverified Adverse Reaction, Mild, VOMITING, 03/18/13) Home Medication List Reviewed: Yes YRA-Ebtorw-Psekix Hx Patient Social History Employed/Student: retired Smoking Status: Unknown if Ever Smoked Type Used: Cigarettes 2nd Hand Smoke Exposure: No Recent Hopitalizations: No Have you traveled recently?: No Alcohol Use?: Unable to obtain Immunizations Up To Date Date of Pneumonia Vaccine: Mar 20, 2013 Past Medical History Discussed below Family Medical History Significant Family History: Heart Disease, Diabetes, Hypertension Family History: Cardiovascular disease 19 MOTHER G8 BROTHER Colon cancer 19 MOTHER Completed stroke 19 FATHER Dementia 19 FATHER Diabetes mellitus 19 MOTHER FHx: macular degeneration 19 FATHER Myocardial infarction 19 MOTHER Review of Systems-General Review of Systems Constitutional: other (unable to obtain) Reviewed Test Results Reviewed Test Results Lab Laboratory Tests Test 04/17/22 11:19 04/17/22 11:20 04/17/22 11:26 04/17/22 12:12 Range/Units Glucometer 110 70-110 MG/DL Blood Gas Puncture Site L RAD Blood Gas Patient Temperature 35.6 Arterial Blood pH 7.22 *L 7.37-7.43 Arterial Blood Partial Pressure CO2 77 *H 35-45 MMHG Arterial Blood Partial Pressure O2 129 H 79-93 MMHG Arterial Blood HCO3 31 H 23-27 MMOL/L Arterial Blood Total CO2 33.6 H 21.0-31.0 MMOL/L Arterial Blood Oxygen Saturation 99 94-100 % Arterial Blood Base Excess 3.5 H -2.5-2.5 MMOL/L Martin Test NA Blood Gas Ventilator Setting NO Blood Gas Inspired Oxygen 15L White Blood Count 6.2 4.3-11.0 10^3/uL Red Blood Count 3.58 L 4.30-5.52 10^6/uL Hemoglobin 9.2 L 13.3-17.7 g/dL Hematocrit 33 L 40-54 % Mean Corpuscular Volume 92 80-99 fL Mean Corpuscular Hemoglobin 26 25-34 pg Mean Corpuscular Hemoglobin Concent 28 L 32-36 g/dL Red Cell Distribution Width 22.7 H 10.0-14.5 % Platelet Count 203 130-400 10^3/uL Mean Platelet Volume 9.0-12.2 fL Immature Granulocyte % (Auto) 0 % Neutrophils (%) (Auto) 72 42-75 % Lymphocytes (%) (Auto) 14 12-44 % Monocytes (%) (Auto) 12 0-12 % Eosinophils (%) (Auto) 1 0-10 % Basophils (%) (Auto) 1 0-10 % Neutrophils # (Auto) 4.5 1.8-7.8 10^3/uL Lymphocytes # (Auto) 0.9 L 1.0-4.0 10^3/uL Monocytes # (Auto) 0.7 0.0-1.0 10^3/uL Eosinophils # (Auto) 0.1 0.0-0.3 10^3/uL Basophils # (Auto) 0.1 0.0-0.1 10^3/uL Immature Granulocyte # (Auto) 0.0 0.0-0.1 10^3/uL Percent Immature Platelet Fraction 10.6 H 0.0-7.6 % Prothrombin Time 17.1 H 12.2-14.7 SEC INR Comment 1.3 0.8-1.4 Sodium Level 144 135-145 MMOL/L Potassium Level 6.7 #*H 3.6-5.0 MMOL/L Chloride Level 112 H 98-107 MMOL/L Carbon Dioxide Level 26 21-32 MMOL/L Anion Gap 6 5-14 MMOL/L Blood Urea Nitrogen 28 H 7-18 MG/DL Creatinine 1.55 H 0.60-1.30 MG/DL Estimat Glomerular Filtration Rate 52 BUN/Creatinine Ratio 18 Glucose Level 106 H 70-105 MG/DL Lactic Acid Level 0.51 0.50-2.00 MMOL/L Calcium Level 8.4 L 8.5-10.1 MG/DL Corrected Calcium 9.2 8.5-10.1 MG/DL Magnesium Level 2.3 1.6-2.4 MG/DL Total Bilirubin 0.5 0.1-1.0 MG/DL Aspartate Amino Transf (AST/SGOT) 12 5-34 U/L Alanine Aminotransferase (ALT/SGPT) 13 0-55 U/L Alkaline Phosphatase 60 40-136 U/L Troponin I < 0.028 <0.028 NG/ML B-Type Natriuretic Peptide 464.8 H <100.0 PG/ML Total Protein 7.1 6.4-8.2 GM/DL Albumin 3.0 L 3.2-4.5 GM/DL Procalcitonin 0.21 H <0.10 NG/ML SARS-CoV-2 RNA (RT-PCR) Not Detected Not Detecte Test 04/17/22 13:05 04/17/22 15:38 04/17/22 16:01 04/17/22 16:48 Range/Units Urine Color YELLOW Urine Clarity CLEAR Urine pH 5.5 5-9 Urine Specific [place] 1.025 H 1.016-1.022 Urine Protein 2+ H NEGATIVE Urine Glucose (UA) 3+ H NEGATIVE Urine Ketones NEGATIVE NEGATIVE Urine Nitrite NEGATIVE NEGATIVE Urine Bilirubin NEGATIVE NEGATIVE Urine Urobilinogen 0.2 < = 1.0 MG/DL Urine Leukocyte Esterase 1+ H NEGATIVE Urine RBC (Auto) 1+ H NEGATIVE Urine RBC RARE /HPF Urine WBC 50-100 H /HPF Urine Crystals NONE /LPF Urine Bacteria LARGE H /HPF Urine Casts NONE /LPF Urine Mucus NEGATIVE /LPF Urine Culture Indicated YES Glucometer 75 70-110 MG/DL Blood Gas Puncture Site RIGHT RADIAL Blood Gas Patient Temperature 35.3 Arterial Blood pH 7.47 H 7.37-7.43 Arterial Blood Partial Pressure CO2 41 35-45 MMHG Arterial Blood Partial Pressure O2 55 L 79-93 MMHG Arterial Blood HCO3 30 H 23-27 MMOL/L Arterial Blood Total CO2 31.6 H 21.0-31.0 MMOL/L Arterial Blood Oxygen Saturation 95 94-100 % Arterial Blood Base Excess 6.1 H -2.5-2.5 MMOL/L Martin Test YES-POS Blood Gas Ventilator Setting YES Blood Gas Inspired Oxygen NA Sodium Level 147 H 135-145 MMOL/L Potassium Level 5.1 H 3.6-5.0 MMOL/L Chloride Level 112 H 98-107 MMOL/L Carbon Dioxide Level 27 21-32 MMOL/L Anion Gap 8 5-14 MMOL/L Blood Urea Nitrogen 28 H 7-18 MG/DL Creatinine 1.54 H 0.60-1.30 MG/DL Estimat Glomerular Filtration Rate 52 BUN/Creatinine Ratio 18 Glucose Level 68 L 70-105 MG/DL Calcium Level 9.0 8.5-10.1 MG/DL Triglycerides Level 104 <150 MG/DL Test 04/17/22 18:12 04/17/22 23:35 04/18/22 03:25 04/18/22 08:32 Range/Units Glucometer 131 H 99 70-110 MG/DL White Blood Count 8.9 4.3-11.0 10^3/uL Red Blood Count 3.41 L 4.30-5.52 10^6/uL Hemoglobin 8.8 L 13.3-17.7 g/dL Hematocrit 30 L 40-54 % Mean Corpuscular Volume 88 80-99 fL Mean Corpuscular Hemoglobin 26 25-34 pg Mean Corpuscular Hemoglobin Concent 29 L 32-36 g/dL Red Cell Distribution Width 22.7 H 10.0-14.5 % Platelet Count 205 130-400 10^3/uL Mean Platelet Volume 9.0-12.2 fL Immature Granulocyte % (Auto) 0 % Neutrophils (%) (Auto) 78 H 42-75 % Lymphocytes (%) (Auto) 9 L 12-44 % Monocytes (%) (Auto) 11 0-12 % Eosinophils (%) (Auto) 1 0-10 % Basophils (%) (Auto) 0 0-10 % Neutrophils # (Auto) 7.0 1.8-7.8 10^3/uL Lymphocytes # (Auto) 0.8 L 1.0-4.0 10^3/uL Monocytes # (Auto) 0.9 0.0-1.0 10^3/uL Eosinophils # (Auto) 0.1 0.0-0.3 10^3/uL Basophils # (Auto) 0.0 0.0-0.1 10^3/uL Immature Granulocyte # (Auto) 0.0 0.0-0.1 10^3/uL Percent Immature Platelet Fraction 7.7 H 0.0-7.6 % Blood Gas Puncture Site RIGHT RADIAL Blood Gas Patient Temperature 36.1 Arterial Blood pH 7.40 7.37-7.43 Arterial Blood Partial Pressure CO2 47 H 35-45 MMHG Arterial Blood Partial Pressure O2 59 L 79-93 MMHG Arterial Blood HCO3 29 H 23-27 MMOL/L Arterial Blood Total CO2 30.0 21.0-31.0 MMOL/L Arterial Blood Oxygen Saturation 92 L 94-100 % Arterial Blood Base Excess 3.7 H -2.5-2.5 MMOL/L Martin Test YES-POS Blood Gas Ventilator Setting YES Blood Gas Inspired Oxygen NA Sodium Level 151 H 135-145 MMOL/L Potassium Level 5.1 H 3.6-5.0 MMOL/L Chloride Level 113 H 98-107 MMOL/L Carbon Dioxide Level 25 21-32 MMOL/L Anion Gap 13 5-14 MMOL/L Blood Urea Nitrogen 28 H 7-18 MG/DL Creatinine 1.53 H 0.60-1.30 MG/DL Estimat Glomerular Filtration Rate 53 BUN/Creatinine Ratio 18 Glucose Level 81 70-105 MG/DL Calcium Level 8.8 8.5-10.1 MG/DL Corrected Calcium 9.9 8.5-10.1 MG/DL Phosphorus Level 4.5 2.3-4.7 MG/DL Magnesium Level 1.9 1.6-2.4 MG/DL Total Bilirubin 0.6 0.1-1.0 MG/DL Aspartate Amino Transf (AST/SGOT) 13 5-34 U/L Alanine Aminotransferase (ALT/SGPT) 9 0-55 U/L Alkaline Phosphatase 49 40-136 U/L Total Protein 6.3 L 6.4-8.2 GM/DL Albumin 2.6 L 3.2-4.5 GM/DL Physical Exam Physical Exam Vital Signs Vital Signs - First Documented 04/17/22 04/17/22 04/17/22 04/17/22 11:12 11:15 11:50 13:10 Temp 35.6 Pulse 82 Resp 16 B/P (MAP) 152/80 Pulse Ox 85 O2 Delivery Room Air O2 Flow Rate 15.00 FiO2 50 Capillary Refill : Less Than 3 Seconds Height, Weight, BMI Height: 6'2" Weight: 250lbs. 0.0oz. 113.395446iu; 49.24 BMI Method:Estimated General Appearance: Other (Sedated and intubated) HEENT: PERRL/EOMI Neck: Normal Inspection Respiratory: Crackles, Other (Ventilator dependent) Cardiovascular: Regular Rate, Rhythm, Systolic Murmur Gastrointestinal: Normal Bowel Sounds, No Organomegaly Back: Normal Inspection Extremity: Normal Capillary Refill Neurologic/Psychiatric: Other (Sedated and intubated) A/P-Cardiology Admission Diagnosis Acute respiratory failure Acute exacerbation of COPD Paroxysmal atrial fibrillation Diabetes mellitus Assessment/Plan Acute respiratory failure, ventilator dependent Hypercapnia, underlying COPD with possible acute exacerbation Managed by medical team Change in mental status, patient was unresponsive when evaluated probably due to hypoxemia with anoxic brain injury. Pulmonary edema, given Lasix. Currently on pressors. Continue to monitor. Coronary artery disease, cardiac catheterization in 2014 showed mild disease nonobstructive disease. 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 Peripheral angiogram was done on February 06, 2022 showing mild peripheral arterial disease nonobstructive disease. Chronic hyperkalemia. Paroxysmal atrial fibrillation, patient was in sinus rhythm on admission, appears to be in and out of atrial fibrillation Maintained on Eliquis 5 mg twice daily which will be restarted. History of mild sinus bradycardia, has been tolerating metoprolol 100 mg twice daily. Restart and monitor Hypertension with hypertensive heart disease and diastolic dysfunction Has been maintained on amlodipine 10 mg daily, Cardura and metoprolol 50 mg twice daily. Acute on chronic renal failure, chronic kidney disease. Continue to monitor renal function closely Diabetes mellitus, followed and managed by primary care physician History of CVA in 2014, seizure disorder. History of right upper extremity venous thrombosis after central line placement. Bipolar disorder. Hyperlipidemia, intolerant to statin. TIMUR HAWKINS MD Apr 18, 2022 09:32
--- NOTE | 2022-04-18 09:33 | Diagnostic Imaging Report ---
Indication: Respiratory failure Frontal chest obtained at 6:27 a.m. and compared to yesterday. Study is limited due to body habitus and technique. ET tube tip overlies mid trachea. There is cardiomegaly with central vascular congestion and unchanged bilateral infiltrates. There is no overt pneumothorax. Impression: Technically limited study demonstrates stable ET tube with no change in infiltrates compared to yesterday. Dictated by: Dictated on workstation # [id number]
[2022-04-18] MEDS: APIXABAN 5 MG (ELIQUIS) TABLET PO SCH ×2 (09:43→20:59)
[2022-04-18 09:50] LABS: POTASSIUM 4.9 MMOL/L (3.6-5.0)
[2022-04-18 09:51] LABS: CALCIUM 8.6 MG/DL (8.5-10.1)
[2022-04-18 09:56] LABS: CREATININE SERUM 1.52 MG/DL (0.60-1.30)
[2022-04-18] MEDS: HYPOCHLOROUS ACID/NaCl (VASHE) 250 ML IR SCH (10:58)
[2022-04-18] MEDS: COLLAGENASE 30 GM (SANTYL) TUBE TP SCH (10:59)
[2022-04-18] MEDS ORDERED: NICO-586 TD (11:07)
[2022-04-18] MEDS ORDERED: ATOR80TA76 PO (11:07)
[2022-04-18] MEDS ORDERED: AZIT250T12 PO (11:07)
[2022-04-18] MEDS ORDERED: SIME125C78 PO (11:07)
[2022-04-18] MEDS ORDERED: DULO30CA49 PO (11:07)
[2022-04-18] MEDS ORDERED: INSU100I10 SQ (11:07)
[2022-04-18] MEDS ORDERED: POTA10CA43 PO (11:07)
[2022-04-18] MEDS ORDERED: DICL100G13 TP (11:07)
[2022-04-18] MEDS ORDERED: LACT1TAB6 PO (11:12)
[2022-04-18] MEDS: DOPamine DRIP 250 ML IV SCH (12:49)
--- NOTE | 2022-04-18 13:54 | Diagnostic Imaging Report ---
EXAMINATION: Chest 1 view HISTORY: PICC line placement COMPARISON: 04/18/2022 FINDINGS: Stable largely cardiac silhouette. PICC line is not identified on this radiograph. There is low lung volumes with opacities throughout both lungs, right greater than left. The osseous structures are intact. Medical support lines and tubes are otherwise intact. IMPRESSION: 1. No visualized PICC line. No pneumothorax. 2. Otherwise stable chest radiograph. Dictated by: Dictated on workstation # [id number]
[2022-04-18 15:13] VITALS: BP 161/85
[2022-04-18 18:40] VITALS: BP 150/70
--- NOTE | 2022-04-18 18:46 | Progress Note - Hospitalist ---
Subjective HPI/CC On Admission Date Seen by Provider: Apr 18, 2022 Time Seen by Provider: 09:45 Subjective/Events-last exam He is intubated and sedated. Focused Exam Lactate Level 04/17/22 11:26: Lactic Acid Level 0.51 Objective Exam Vital Signs Vital Signs Date Time Temp Pulse Resp B/P (MAP) Pulse Ox O2 Delivery O2 Flow Rate FiO2 04/18/22 18:08 75 160/77 04/18/22 18:00 36.8 18 94 Mechanical Ventilator 45.00 04/18/22 16:00 45 Capillary Refill : Less Than 3 Seconds General Appearance: No Apparent Distress, Obese, Other (intubated and sedated) Respiratory: Lungs Clear, No Respiratory Distress, Other (intubated and mechanically ventilated) Cardiovascular: Regular Rate, Rhythm, No Murmur Gastrointestinal: Normal Bowel Sounds, Soft Extremity: Pedal Edema, Swelling, Other (right foot wound) Neurologic/Psychiatric: Other (sedated) Results/Procedures Lab Laboratory Tests 04/18/22 03:25 04/18/22 09:30 Patient resulted labs reviewed. Imaging: Reviewed Imaging Report Assessment/Plan Assessment and Plan Assess & Plan/Chief Complaint Acute respiratory failure with hypoxia and hypercapnia Pneumonia Remains intubated TeleICU following MAT protocol Continue antibiotics UTI Continue antibiotics Await cultures JARRET on CKD stage 3a Holding off on fluids due to hypervolemia Montior T2DM SSI HTN AFib Bipolar disorder BPH Resume home meds as appropriate Morbid obesity Clinically significant, no acute management needs DVT ppx: Already receiving therapeutic anticoagulation Hyperkalemia, resolved Critical Care Critically Ill Patient Diagnosis/Problems Diagnosis/Problems (1) Acute on chronic respiratory failure with hypoxia and hypercapnia Status: Acute (2) PNA (pneumonia) Status: Acute (3) UTI (urinary tract infection) Status: Acute (4) Acute kidney injury superimposed on chronic kidney disease Status: Acute (5) T2DM (type 2 diabetes mellitus) Status: Chronic Qualifiers: Diabetes mellitus terminal clerk insulin use: with terminal clerk use Diabetes mellitus complication status: with skin complications Diabetes mellitus comp lication detail: with other skin complication Qualified Codes: E11.628 - Type 2 diabetes mellitus with other skin complications; Z79.4 - residential (current) use of insulin (6) Atrial fibrillation Status: Chronic (7) Morbid obesity Status: Chronic (8) Seizure disorder Status: Chronic GUALBERTO ROJAS MD Apr 18, 2022 18:46
[2022-04-18] MEDS: meTOprolol TARTRATE 50 MG (LOPRESSOR) TAB PO SCH (20:59)
[2022-04-18] MEDS ORDERED: DIVALPROEX 250 MG DELAYED RELEASE (DEPAKOTE) TAB PO SCH (21:00)
[2022-04-18] MEDS ORDERED: MUPIROCIN 2% OINT 22 GM (BACTROBAN) TUBE TOP SCH (21:00)
[2022-04-18] MEDS ORDERED: meTOprolol TARTRATE 50 MG (LOPRESSOR) TAB PO SCH (21:00)
[2022-04-18] MEDS ORDERED: NON-FORMULARY MEDICATION 1 EA EA (Brimonidine Tartrate (Alphagan P) 1 DROP) OU SCH (21:00)
[2022-04-18] MEDS ORDERED: APIXABAN 5 MG (ELIQUIS) TABLET PO SCH (21:00)
[2022-04-18] MEDS: GABAPENTIN 100 MG (NEURONTIN) CAP PO SCH (21:31)
[2022-04-18] MEDS: VALPROIC ACID SYRUP 250 MG/5 ML UDC NG SCH (21:41)
[2022-04-18 22:24] VITALS: BP 127/53
[2022-04-19] MEDS: PROPOFOL DRIP (ICU) 100 ML IV SCH ×6 (00:26→22:43)
[2022-04-19] MEDS: inSUlin ASPART (NovoLOG) 1 UNIT/0.01 ML (CHARGE PER UNIT) SC SCH ×4 (00:27→18:00)
[2022-04-19 02:25] VITALS: BP 136/67
[2022-04-19] MEDS: RT-ALBUTEROL/IPRATROPIUM 3 ML (DUONEB) VIAL INH SCH ×6 (02:25→22:24)
[2022-04-19 03:42] LABS: ABG BASE EXCESS 3.1 MMOL/L (-2.5-2.5); ABG OXYGEN SATURATION 80 % (94-100); ABG PCO2 53 MMHG (35-45); ABG PH 7.35 (7.37-7.43); ABG PO2 50 MMHG (79-93); ABG TCO2 29.8 MMOL/L (21.0-31.0)
[2022-04-19 03:43] LABS: BASOPHILS # (AUTO) 0.1 10^3/uL (0.0-0.1); BASOPHILS % (AUTO) 1 % (0-10); HEMOGLOBIN 8.9 g/dL (13.3-17.7)
[2022-04-19 03:44] LABS: ALLENS TEST YES-POS; PATIENT TEMP 37.2; VENTILATOR YES
[2022-04-19 03:45] LABS: EOSINOPHILS # (AUTO) 0.3 10^3/uL (0.0-0.3); EOSINOPHILS % (AUTO) 5 % (0-10); HEMATOCRIT 29 % (40-54); LYMPHOCYTES # (AUTO) 1.2 10^3/uL (1.0-4.0); LYMPHOCYTES % (AUTO) 18 % (12-44); MEAN CORPUSCULAR HEMOGLOBIN 27 pg (25-34); MEAN CORPUSCULAR HGB CONC 31 g/dL (32-36); MEAN CORPUSCULAR VOLUME 89 fL (80-99); MONOCYTES # (AUTO) 0.9 10^3/uL (0.0-1.0); MONOCYTES % (AUTO) 14 % (0-12); NEUTROPHILS # (AUTO) 4.1 10^3/uL (1.8-7.8); NEUTROPHILS % (AUTO) 62 % (42-75); PLATELET COUNT 206 10^3/uL (130-400); WHITE BLOOD COUNT 6.7 10^3/uL (4.3-11.0)
[2022-04-19 04:12] LABS: ALBUMIN 2.4 GM/DL (3.2-4.5); BILIRUBIN,TOTAL 0.5 MG/DL (0.1-1.0); CALCIUM 8.3 MG/DL (8.5-10.1); CREATININE SERUM 1.61 MG/DL (0.60-1.30); MAGNESIUM 1.8 MG/DL (1.6-2.4); PHOSPHORUS 4.4 MG/DL (2.3-4.7); POTASSIUM 4.9 MMOL/L (3.6-5.0); TOTAL PROTEIN 6.7 GM/DL (6.4-8.2)
[2022-04-19] MEDS: POTASSIUM CL 10MEQ/50ML IVPB 50 ML IV SCH (04:50)
[2022-04-19] MEDS: MAGNESIUM 1 GM/100 ML IVPB 100 ML IV SCH (04:51)
[2022-04-19] MEDS: KCL 20 MEQ TAB (K-DUR) PO SCH (04:51)
--- NOTE | 2022-04-19 06:36 | Occ Therapy Progress Note ---
Therapy Progress Note Pt is currently intubated. OT to monitor pt's status then will initiate treatment when pt is medically stable and able to actively participate in skilled therapy. NICO ZAZUETA Apr 19, 2022 06:36
--- NOTE | 2022-04-19 07:18 | Physical Therapy Progress Note ---
Therapy Progress Note Patient currently sedated and intubated. PT will continue to monitor patient status and initiate treatment when patient is alert and able to actively participate with skilled therapy. SAYRA HI PT Apr 19, 2022 07:18
[2022-04-19 07:35] VITALS: BP 118/69
[2022-04-19] MEDS: meTOprolol TARTRATE 50 MG (LOPRESSOR) TAB PO SCH ×2 (08:24→20:45)
[2022-04-19] MEDS: TAMSULOSIN 0.4 MG (FLOMAX) CAP PO SCH (08:24)
[2022-04-19] MEDS: MUPIROCIN 2% OINT 22 GM (BACTROBAN) TUBE TOP SCH ×2 (08:25→20:45)
[2022-04-19] MEDS: APIXABAN 5 MG (ELIQUIS) TABLET PO SCH ×2 (08:25→20:44)
[2022-04-19] MEDS: ASPIRIN E.C. 81 MG (ECOTRIN) TAB PO SCH (08:25)
[2022-04-19] MEDS: GABAPENTIN 100 MG (NEURONTIN) CAP PO SCH ×3 (08:25→20:44)
[2022-04-19] MEDS: DULoxetine 30 MG (CYMBALTA) CAP PO SCH (08:25)
[2022-04-19] MEDS: PANTOPRAZOLE 40 MG (PROTONIX) VIAL IV SCH (08:26)
[2022-04-19] MEDS: VALPROIC ACID SYRUP 250 MG/5 ML UDC NG SCH ×3 (08:26→20:44)
--- NOTE | 2022-04-19 08:39 | Cardiology Progress Note ---
Subjective Date Seen by Provider: Apr 19, 2022 Time Seen by Provider: 08:37 Subjective/Events-last exam Patient was seen at bedside, sedated and intubated. Review of Systems General: Other (Unable to provide review of system) Focused Exam Lactate Level 04/17/22 11:26: Lactic Acid Level 0.51 Objective-Cardiology Exam Last Set of Vital Signs Vital Signs 04/19/22 04/19/22 04/19/22 06:00 07:35 08:18 Temp 36.7 Pulse 75 Resp 16 B/P (MAP) 120/60 (73) Pulse Ox 95 O2 Delivery Mechanical Ventilator O2 Flow Rate 45.00 FiO2 45 I&O Intake and Output 04/19/22 00:00 Intake Total 1358 ml Output Total 1675 ml Balance -317 ml Intake Oral 0 ml IV Total 1050 ml Tube Feeding 118 ml Other 190 ml Output Urine Total 1025 ml Gastric Drainage Total 650 ml # Urine Diapers 14 General: Other (Sedated and intubated) HEENT: Atraumatic, PERRLA Lungs: Clear to Auscultation, Normal Air Movement Heart: Regular Rate, Normal S1, Normal S2 Abdomen: Normal Bowel Sounds Extremities: No Clubbing, No Cyanosis Skin: No Rashes Neuro: Other (Sedated and intubated) Psych/Mental Status: Other (Sedated and intubated) Results Lab Laboratory Tests 04/18/22 09:30 04/19/22 03:31 A/P-Cardiology Admission Diagnosis Acute respiratory failure Acute exacerbation of COPD Paroxysmal atrial fibrillation Diabetes mellitus Assessment/Plan Acute respiratory failure, ventilator dependent Hypercapnia, acute exacerbation of COPD Managed by medical team Change in mental status, patient was unresponsive when evaluated probably due to hypoxemia with anoxic brain injury. Pulmonary edema, given Lasix. Responded well to diuretics Continue to monitor. Coronary artery disease, cardiac catheterization in 2014 showed mild disease nonobstructive disease. 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 Peripheral angiogram was done on February 06, 2022 showing mild peripheral arterial disease nonobstructive disease. Chronic hyperkalemia. Paroxysmal atrial fibrillation, patient was in sinus rhythm on admission, appears to be in and out of atrial fibrillation Maintained on Eliquis 5 mg twice daily which will be restarted. History of mild sinus bradycardia, has been tolerating metoprolol 100 mg twice daily. Restart and monitor Hypertension with hypertensive heart disease and diastolic dysfunction Has been maintained on amlodipine 10 mg daily, Cardura and metoprolol 50 mg twice daily. Acute on chronic renal failure, chronic kidney disease. Continue to monitor renal function closely Diabetes mellitus, followed and managed by primary care physician History of CVA in 2014, seizure disorder. History of right upper extremity venous thrombosis after central line placement. Bipolar disorder. Hyperlipidemia, intolerant to statin. TIMUR HAWKINS MD Apr 19, 2022 08:39
[2022-04-19] MEDS ORDERED: ASPIRIN E.C. 81 MG (ECOTRIN) TAB PO SCH (09:00)
[2022-04-19] MEDS: DOPamine DRIP 250 ML IV SCH (09:17)
--- NOTE | 2022-04-19 09:53 | Diagnostic Imaging Report ---
CLINICAL INDICATION: Tube adjustment. EXAM: Portable chest x-ray, upright view. COMPARISON: Chest x-ray dated 04/19/2022 at 0526 hours. FINDINGS: It is difficult to evaluate the exact tip of the ET tube given the patient's body habitus, portable projection, and overlying suspected feeding tube which is also incompletely imaged. There is cardiomegaly. The right costophrenic angle region is not seen and a right pleural effusion may be present. There is no pneumothorax. Diffuse groundglass opacification involving the right midlung field and right lung base which has not significantly changed. There are mild patchy airspace opacities involving the left lung base. The pulmonary vasculature appears mildly prominent. There are degenerative spurs involving the spine. IMPRESSION: 1: There is stable diffuse groundglass airspace opacity involving the right lung and patchy airspace opacities involving the left lung. 2: The ET tube and feeding tube are not well visualized on this exam and exact location cannot be determined. Slightly oblique AP view may help better evaluate. 3: There is cardiomegaly and mild pulmonary vascular congestion. Dictated by: Dictated on workstation # [id number]
--- NOTE | 2022-04-19 09:58 | Tele-ICU Progress Note ---
Subjective Date Seen by a Provider: Apr 19, 2022 Time Seen by a Provider: 09:57 Subjective/Events-last exam - (Tele-ICU Physician , Progress Note ) Available chart/ vitals / labs / Images reviewed Video assessment done using teleICU camera, rest of exam as per RN Discussed with RN Events overnight : FEBRILE hemodynamically stable Respiratory - I/O =neg 300 Drips: Pressors- no VENT SETTINGS and ABG reviewed Sedation: RASS candidate for SBTContraindications : Cardiovascular Stability /Sedation Score / FI02/PEEP / ABG / CXR Consultants: Hospital course: (04/17) 57 y M found at medical facility found unresponsive with pulse INTUBATED protect airway possible PNA and UTI, hyperkalemia with reversal A/P Acute resp failure, presumed pulm edema - -AC 550 16 45% +5 - diuresis as per cards -secreations moderate , thick as per RN report -candidate for SBT today - MIGHT EXTUBATE TO NIPPV Pulm edema - ECHO 02/2022- EF 55% , difficult study , no RVSP measured - cards consulted , ECHO pending UNresponsive on admission -[facility]H - no acute findings - due to CO2 retention - follows commands on sedation vacation Possible UTI + GNR in sputum 04/17 - will resume abx - rocephin , await for Cx COPD - cont nebs , no need for steroids Chronic resp failure - ? OHS + COPD JARRET/ CKD ( Hyperkalemia resolved ) - ( requiring HD in 2003) - stable with slight increase Cr again 04/19 Hypernatremia - with diuresis , will cont free H20 in TF PAF - rate controlled - was on eliquis RN IV THERAPY - to contionue DM - -ISS - periph neuropathy - neurontin to resume latter chronic DVTs s/p remote IVC filter, - Eliquis to cont Anemia - no active bleeding , cont to monitor h/o R MCA CVA 06/2015 and 11/2015 - monitor h/o SZ ? reported by patient on previous admission - depacote 250 tid - ? bipolar tx vs sz - resumed H/o RA - not on immunomodulators Triglycerinemia - 1300 on propofol on 04/19 - will change to precedex and resume home meds Lines : R fem line 04/17 - removed 04/18 , PICC RUE 04/18 , (Central Line Necessity Reviewed) Ott: can not be placed , external catheter applied OG: + Nutrition: tf Analgesia: Anxiety/ delirium VTE Prophylaxis: eliquis Stress Ulcer Prophylaxis:ppi Plans in collaboration with bedside consultants and IM MDs. Discussed with RN to reach out if any questions or concerns A total of 35 minutes of critical care time was devoted to this patient today, required to treat and/or prevent further deterioration of critical care cond ition ( as above ) . I am remotely monitoring this patient from another state. I am unable to do the bedside exam, and history/physical and pertinent information is taken from other notes in the computer and bedside staff. I cannot take responsibility for the accuracy of this information. ` Sepsis Event Evaluation Height, Weight, BMI Height: 6'2" Weight: 250lbs. 0.0oz. [id number]; 47.61 BMI Method:Estimated Focused Exam Lactate Level 04/17/22 11:26: Lactic Acid Level 0.51 Exam Exam Patient acknowledged, consented, and participated in this virtual visit which was conducted using real time audio/video Vital Signs Date Time Temp Pulse Resp B/P (MAP) Pulse Ox O2 Delivery O2 Flow Rate FiO2 04/19/22 09:18 36.7 04/19/22 09:17 73 128/65 04/19/22 08:18 36.7 04/19/22 08:00 95 Mechanical Ventilator 45 04/19/22 08:00 45 04/19/22 08:00 37.0 73 128/65 (86) 94 Mechanical Ventilator 45.00 04/19/22 07:42 73 128/65 04/19/22 07:35 75 16 95 45 04/19/22 07:18 37.1 04/19/22 07:14 66 04/19/22 07:00 37.0 77 125/63 (83) 95 Mechanical Ventilator 45.00 04/19/22 06:00 37.1 70 20 120/60 (73) 95 Mechanical Ventilator 45.00 04/19/22 05:36 87 123/67 04/19/22 05:36 87 123/67 04/19/22 05:00 78 20 87 04/19/22 05:00 37 76 16 132/67 (86) 93 Mechanical Ventilator 45.00 04/19/22 04:26 72 129/81 04/19/22 04:00 37.1 72 16 129/60 (84) 93 Mechanical Ventilator 45.00 04/19/22 04:00 94 Mechanical Ventilator 45 04/19/22 04:00 45 04/19/22 03:56 37.1 04/19/22 03:42 72 129/81 04/19/22 03:00 71 16 127/72 (90) 93 Mechanical Ventilator 45.00 04/19/22 02:58 72 129/81 04/19/22 02:25 68 16 94 45 04/19/22 02:00 37.0 69 16 117/61 (67) 95 Mechanical Ventilator 45.00 04/19/22 01:28 76 113/60 04/19/22 01:00 70 04/19/22 01:00 37.1 70 16 113/60 (74) 95 Mechanical Ventilator 45.00 04/19/22 00:26 73 114/61 04/19/22 00:14 37.1 04/19/22 00:00 37.1 68 16 99/60 (83) 95 Mechanical Ventilator 45.00 04/19/22 00:00 45 04/19/22 00:00 95 Mechanical Ventilator 45 04/18/22 23:00 37.1 76 16 132/62 (78) 94 Mechanical Ventilator 45.00 04/18/22 22:58 73 109/55 04/18/22 22:24 65 15 95 45 04/18/22 22:08 73 109/55 04/18/22 22:00 37.3 71 16 108/57 (65) Mechanical Ventilator 45.00 04/18/22 21:28 80 155/70 04/18/22 21:00 37.2 86 16 147/72 (88) 95 Mechanical Ventilator 45.00 04/18/22 20:00 37.1 81 16 149/81 (91) 93 Mechanical Ventilator 45.00 04/18/22 19:58 80 150/70 04/18/22 19:48 93 Mechanical Ventilator 45 04/18/22 19:46 45 04/18/22 19:00 84 04/18/22 19:00 37 84 16 153/71 (86) 94 Mechanical Ventilator 45.00 04/18/22 18:40 80 17 94 45 04/18/22 18:08 75 160/77 04/18/22 18:00 36.8 74 18 160/68 (98) 94 Mechanical Ventilator 45.00 04/18/22 17:35 75 160/77 04/18/22 17:00 36.7 75 16 160/77 (104) 94 Mechanical Ventilator 45.00 04/18/22 16:00 36.6 90 17 152/84 (106) 93 Mechanical Ventilator 45.00 04/18/22 16:00 94 Mechanical Ventilator 45 04/18/22 16:00 45 04/18/22 15:13 76 16 93 45 04/18/22 15:00 36.5 67 25 161/85 (110) 94 Mechanical Ventilator 45.00 04/18/22 14:29 81 136/70 04/18/22 14:00 36.4 64 24 151/66 (94) 94 Mechanical Ventilator 45.00 04/18/22 13:15 36.4 67 150/71 (97) 94 Mechanical Ventilator 45.00 04/18/22 13:00 36.4 80 94 Mechanical Ventilator 45.00 04/18/22 12:49 81 136/70 04/18/22 12:46 81 136/70 04/18/22 12:06 61 04/18/22 12:00 36.1 69 127/76 (93) 94 Mechanical Ventilator 45.00 04/18/22 12:00 94 Mechanical Ventilator 45 04/18/22 12:00 45 04/18/22 11:14 61 132/60 04/18/22 11:00 36.0 61 132/60 (84) 94 Mechanical Ventilator 45.00 04/18/22 10:00 36.1 63 135/65 (88) 94 Mechanical Ventilator 45.00 04/18/22 09:58 62 16 94 45 I & O 04/19/22 07:00 Intake Total 1823 ml Output Total 1950 ml Balance -127 ml Height & Weight Height: 6'2" Weight: 250lbs. 0.0oz. 113.735493wh; 47.61 BMI Method:Estimated General Appearance: No Apparent Distress, Obese, Other (intubated and sedated) HEENT: PERRL/EOMI Neck: Normal Inspection Respiratory: Lungs Clear, No Respiratory Distress, Other (intubated and mechanically ventilated) Cardiovascular: Regular Rate, Rhythm, No Murmur Capillary Refill: Less Than 3 Seconds Gastrointestinal: normal bowel sounds, no organomegaly Extremity: Pedal Edema, Swelling, Other (right foot wound) Neurologic/Psychiatric: Other (sedated) Results Lab Laboratory Tests 04/17/22 11:26 04/17/22 16:48 04/18/22 03:25 04/18/22 09:30 04/19/22 03:31 Assessment/Plan Assessment/Plan ` JAVIER MISTRY MD Apr 19, 2022 09:58
[2022-04-19] MEDS: BRIMONIDINE 0.2% (ALPHAGAN) OPHTH SOLN 5 ML BTL OU SCH ×2 (10:21→20:44)
[2022-04-19] MEDS: DexMEDEtomidine 250 ML DRIP 250 ML IV SCH (10:23)
[2022-04-19] MEDS: cefTRIAXone 2,000 MG/NS 50 ML IVPB IV SCH ×2 (10:23)
--- NOTE | 2022-04-19 10:29 | Diagnostic Imaging Report ---
INDICATION: Respiratory failure. TECHNIQUE/COMPARISON: A frontal chest was obtained at 5:26 AM and compared to 04/18/2022. FINDINGS: There is cardiomegaly and central vascular congestion with unchanged right basilar infiltrate. There is technical limitation. The ET tube and NG tube are unchanged. IMPRESSION: Cardiomegaly and central vascular congestion with unchanged right basilar infiltrate and probable posterior layering pleural fluid. Unchanged life support lines. Dictated by: Dictated on workstation # [id number]
[2022-04-19] MEDS: fentaNYL DRIP PRE-MIX 250 ML IV SCH ×2 (10:34→22:43)
[2022-04-19] MEDS: RT--FLUTICASONE/SALMETEROL 232-14 (AIRDUO RespiCLICK) IH SCH ×2 (10:37→22:24)
[2022-04-19 10:38] VITALS: BP 126/65
[2022-04-19] MEDS: UMECLIDINIUM BROMIDE (INCRUSE ELLIPTA) 7'S IH SCH (10:38)
[2022-04-19 14:21] VITALS: BP 136/61
[2022-04-19 18:25] VITALS: BP 118/55
--- NOTE | 2022-04-19 19:42 | Progress Note - Hospitalist ---
Subjective HPI/CC On Admission Date Seen by Provider: Apr 19, 2022 Time Seen by Provider: 10:00 Subjective/Events-last exam He remains intubated and sedated. Focused Exam Lactate Level 04/17/22 11:26: Lactic Acid Level 0.51 Objective Exam Vital Signs Vital Signs Date Time Temp Pulse Resp B/P (MAP) Pulse Ox O2 Delivery O2 Flow Rate FiO2 04/19/22 18:36 53 118/55 04/19/22 18:25 16 93 45 04/19/22 18:00 36.0 Mechanical Ventilator 45.00 Capillary Refill : Less Than 3 Seconds General Appearance: No Apparent Distress, Obese Respiratory: Lungs Clear, No Respiratory Distress, Other (intubated and mechanically ventilated) Cardiovascular: Regular Rate, Rhythm, No Murmur Gastrointestinal: Normal Bowel Sounds, Soft Extremity: Pedal Edema, Swelling Neurologic/Psychiatric: Other (sedated) Skin: Other (right foot wound) Results/Procedures Lab Laboratory Tests 04/19/22 03:31 Patient resulted labs reviewed. Imaging: Reviewed Imaging Report Assessment/Plan Assessment and Plan Assess & Plan/Chief Complaint Acute respiratory failure with hypoxia and hypercapnia Pneumonia Remains intubated TeleICU following MAT protocol Continue antibiotics UTI Continue antibiotics Await cultures JARRET on CKD stage 3a Holding off on fluids due to hypervolemia Montior T2DM SSI HTN AFib Bipolar disorder BPH Continue home meds as appropriate Morbid obesity Clinically significant, no acute management needs DVT ppx: Already receiving therapeutic anticoagulation Hyperkalemia, resolved Critical Care Critically Ill Patient Diagnosis/Problems Diagnosis/Problems (1) Acute on chronic respiratory failure with hypoxia and hypercapnia Status: Acute (2) PNA (pneumonia) Status: Acute (3) UTI (urinary tract infection) Status: Acute (4) Acute kidney injury superimposed on chronic kidney disease Status: Acute (5) T2DM (type 2 diabetes mellitus) Status: Chronic Qualifiers: Diabetes mellitus intermodal dispatcher insulin use: with prison use Diabetes mellitus complication status: with skin complications Diabetes mellitus complication detail: with other skin complication Qualified Codes: E11.628 - Type 2 diabetes mellitus with other skin complications; Z79.4 - long term care phlebotomist (current) use of insulin (6) Atrial fibrillation Status: Chronic (7) Morbid obesity Status: Chronic (8) Seizure disorder Status: Chronic GUALBERTO ROJAS MD Apr 19, 2022 19:42
[2022-04-19 22:25] VITALS: BP 145/68
[2022-04-20] VITALS (7 sets, daily range): BP systolic 136–183; BP diastolic 72–103
[2022-04-20] MEDS: inSUlin ASPART (NovoLOG) 1 UNIT/0.01 ML (CHARGE PER UNIT) SC SCH ×6 (00:04→23:52)
[2022-04-20] MEDS: RT-ALBUTEROL/IPRATROPIUM 3 ML (DUONEB) VIAL INH SCH ×6 (02:19→22:09)
[2022-04-20] MEDS: DOPamine DRIP 250 ML IV SCH ×2 (03:21→20:25)
[2022-04-20] MEDS: PROPOFOL DRIP (ICU) 100 ML IV SCH ×2 (04:16→23:53)
[2022-04-20 04:18] LABS: BASOPHILS # (AUTO) 0.1 10^3/uL (0.0-0.1)
[2022-04-20 04:20] LABS: BASOPHILS % (AUTO) 1 % (0-10); EOSINOPHILS # (AUTO) 0.3 10^3/uL (0.0-0.3); EOSINOPHILS % (AUTO) 7 % (0-10); HEMATOCRIT 28 % (40-54); HEMOGLOBIN 8.7 g/dL (13.3-17.7); LYMPHOCYTES # (AUTO) 0.9 10^3/uL (1.0-4.0); LYMPHOCYTES % (AUTO) 17 % (12-44); MEAN CORPUSCULAR HEMOGLOBIN 27 pg (25-34); MEAN CORPUSCULAR HGB CONC 31 g/dL (32-36); MEAN CORPUSCULAR VOLUME 89 fL (80-99); MONOCYTES # (AUTO) 0.9 10^3/uL (0.0-1.0); MONOCYTES % (AUTO) 17 % (0-12); NEUTROPHILS % (AUTO) 58 % (42-75); PLATELET COUNT 141 10^3/uL (130-400); WHITE BLOOD COUNT 5.3 10^3/uL (4.3-11.0)
[2022-04-20 04:31] LABS: ALBUMIN 2.4 GM/DL (3.2-4.5); POTASSIUM 4.8 MMOL/L (3.6-5.0)
[2022-04-20 04:32] LABS: CALCIUM 7.8 MG/DL (8.5-10.1)
[2022-04-20 04:33] LABS: TOTAL PROTEIN 6.4 GM/DL (6.4-8.2)
[2022-04-20 04:35] LABS: BILIRUBIN,TOTAL 0.3 MG/DL (0.1-1.0)
[2022-04-20 04:37] LABS: CREATININE SERUM 1.58 MG/DL (0.60-1.30); PHOSPHORUS 4.2 MG/DL (2.3-4.7)
[2022-04-20 04:38] LABS: SMEAR SCAN COMMENT YES
[2022-04-20] MEDS: MAGNESIUM 1 GM/100 ML IVPB 100 ML IV SCH (04:47)
[2022-04-20] MEDS: POTASSIUM CL 10MEQ/50ML IVPB 50 ML IV SCH (04:47)
[2022-04-20] MEDS: KCL 20 MEQ TAB (K-DUR) PO SCH (04:47)
[2022-04-20 04:55] LABS: ABG BASE EXCESS 1.4 MMOL/L (-2.5-2.5); ABG OXYGEN SATURATION 95 % (94-100); ABG PCO2 43 MMHG (35-45); ABG PH 7.39 (7.37-7.43); ABG PO2 67 MMHG (79-93); ABG TCO2 27.3 MMOL/L (21.0-31.0)
[2022-04-20 04:56] LABS: ALLENS TEST YES-POS; PATIENT TEMP 35.9; VENTILATOR NO
--- NOTE | 2022-04-20 06:33 | Occ Therapy Progress Note ---
Therapy Progress Note Pt currently intubated. OT to monitor pt's status then will initiate treatment when pt is medically stable and able to actively participate in skilled therapy. NICO ZAZUETA Apr 20, 2022 06:33
[2022-04-20] MEDS: HYPOCHLOROUS ACID/NaCl (VASHE) 250 ML IR SCH (07:31)
[2022-04-20] MEDS: COLLAGENASE 30 GM (SANTYL) TUBE TP SCH (07:32)
[2022-04-20] MEDS: MUPIROCIN 2% OINT 22 GM (BACTROBAN) TUBE TOP SCH ×2 (07:32→20:26)
[2022-04-20] MEDS: BRIMONIDINE 0.2% (ALPHAGAN) OPHTH SOLN 5 ML BTL OU SCH ×2 (07:32→20:26)
--- NOTE | 2022-04-20 08:02 | Physical Therapy Progress Note ---
Therapy Progress Note Patient currently sedated and intubated. PT will continue to monitor patient status and initiate treatment when patient is alert and able to actively participate with skilled therapy. JUAN FRANCIS PT Apr 20, 2022 08:02
[2022-04-20] MEDS: meTOprolol TARTRATE 50 MG (LOPRESSOR) TAB PO SCH ×2 (08:08→20:25)
[2022-04-20] MEDS: VALPROIC ACID SYRUP 250 MG/5 ML UDC NG SCH ×3 (08:11→20:25)
[2022-04-20] MEDS: APIXABAN 5 MG (ELIQUIS) TABLET PO SCH ×2 (08:11→20:25)
[2022-04-20] MEDS: ASPIRIN E.C. 81 MG (ECOTRIN) TAB PO SCH (08:11)
[2022-04-20] MEDS: DULoxetine 30 MG (CYMBALTA) CAP PO SCH (08:11)
[2022-04-20] MEDS: TAMSULOSIN 0.4 MG (FLOMAX) CAP PO SCH (08:11)
[2022-04-20] MEDS: GABAPENTIN 100 MG (NEURONTIN) CAP PO SCH ×3 (08:11→20:25)
[2022-04-20] MEDS: PANTOPRAZOLE 40 MG (PROTONIX) VIAL IV SCH (08:11)
[2022-04-20] MEDS ORDERED: guaiFENesin/CODEINE (ROBITUSSIN AC) 10ML UDC NG SCH (09:00)
--- NOTE | 2022-04-20 09:03 | Tele-ICU Progress Note ---
Subjective Date Seen by a Provider: Apr 20, 2022 Time Seen by a Provider: 09:03 Subjective/Events-last exam - (Tele-ICU Physician , Progress Note ) Available chart/ vitals / labs / Images reviewed Video assessment done using teleICU camera, rest of exam as per RN Discussed with RN Events overnight : FEBRILE hemodynamically stable Respiratory - I/O =neg 300 Drips: Pressors- no VENT SETTINGS and ABG reviewed Sedation: RASS propofol 10 , precedex 0.2 candidate for SBTContraindications : Cardiovascular Stability /Sedation Score / FI02/PEEP / ABG / CXR Consultants: Hospital course: (04/17) 57 y M found at medical facility found unresponsive with pulse INTUBATED protect airway possible PNA and UTI, hyperkalemia with reversal 04/18 - elev TGL - added precedex 04/19- 45% +5 . ETT adjusrted 05/21- dieter with precedex , add ativan prn , High airway pressures - added Solumedrol IV , added mucomist neb 04/20, 40% +5 A/P Acute resp failure, presumed pulm edema - -AC 550 16 40% +5 - diuresis as per cards -secreations moderate , thick as per RN report - added mucomist neb 04/20 - High airway pressures - added Solumedrol IV 04/20 -candidate for SBT today - MIGHT EXTUBATE TO NIPPV Pulm edema - ECHO 04/18 22- EF 55% , RVSP 40 mmHg - cards consulted UNresponsive on admission -[facility] - no acute findings - due to CO2 retention - follows commands on sedation vacation since 04/18 UTI ( klebsiella ) + GNR in sputum 04/17 - abx - rocephin , await for Cx COPD - cont nebs - added Solumedrol IV 04/20 Chronic resp failure - ? OHS + COPD - ? sleep study INSOLE AND OUTSOLE SPLITTER / ? use NIPPV JARRET/ CKD ( Hyperkalemia resolved ) - ( requiring HD in 2003) - stable with slight increase Cr again 04/19 Hypernatremia - with diuresis , will increase free H20 in TF PAF - rate controlled - was on eliquis INSOLE AND OUTSOLE SPLITTER - to continue DM - -ISS - periph neuropathy - neurontin chronic DVTs s/p remote IVC filter, - Eliquis to cont Anemia - no active bleeding , cont to monitor h/o R MCA CVA 06/2015 and 11/2015 - monitor h/o SZ ? reported by patient on previous admission - depacote 250 tid - ? bipolar tx vs sz - resumed H/o RA - not on immunomodulators Triglycerinemia - 1300 on propofol on 04/19 - will change to precedex and resume home meds Lines : R fem line 04/17 - removed 04/18 , PICC RUE 04/18 , (Central Line Necessity Reviewed) Ott: can not be placed , external catheter applied OG: + Nutrition: tf Analgesia: Anxiety/ delirium VTE Prophylaxis: eliquis Stress Ulcer Prophylaxis:ppi Plans in collaboration with bedside consultants and IM MDs. Discussed with RN to reach out if any questions or concerns A total of 35 minutes of critical care time was devoted to this patient today, required to treat and/or prevent further deterioration of critical care condition ( as above ) . I am remotely monitoring this patient from another state. I am unable to do the bedside exam, and history/physical and pertinent information is taken from other notes in the computer and bedside staff. I cannot take responsibility for the accuracy of this information. ` Sepsis Event Evaluation Height, Weight, BMI Height: 6'2" Weight: 250lbs. 0.0oz. 113.895156ra; 47.84 BMI Method:Estimated Focused Exam Lactate Level 04/17/22 11:26: Lactic Acid Level 0.51 Exam Exam Patient acknowledged, consented, and participated in this virtual visit which was conducted using real time audio/video Vital Signs Date Time Temp Pulse Resp B/P (MAP) Pulse Ox O2 Delivery O2 Flow Rate FiO2 04/20/22 08:23 92 Mechanical Ventilator 40 04/20/22 08:22 76 145/75 04/20/22 08:00 36.6 76 37 145/75 (98) 96 Mechanical Ventilator 40.00 04/20/22 07:20 Mechanical Ventilator 40.00 04/20/22 07:20 40 04/20/22 07:03 62 04/20/22 07:00 36.3 62 48 121/62 (81) 96 Mechanical Ventilator 45.00 04/20/22 06:00 36.1 53 16 152/77 (105) 95 Mechanical Ventilator 45.00 04/20/22 05:00 75 22 89 04/20/22 05:00 36 58 16 136/72 (94) 95 Mechanical Ventilator 45.00 04/20/22 04:16 59 145/71 04/20/22 04:00 45 04/20/22 04:00 35.8 56 16 149/78 (106) 96 Mechanical Ventilator 45.00 04/20/22 04:00 96 Mechanical Ventilator 45 04/20/22 03:21 59 145/71 04/20/22 03:00 35.8 59 16 145/71 (89) 95 Mechanical Ventilator 45.00 04/20/22 02:43 54 143/65 04/20/22 02:43 54 143/65 04/20/22 02:19 55 16 95 45 04/20/22 02:00 35.7 54 16 149/77 (99) 95 Mechanical Ventilator 45.00 04/20/22 01:00 35.7 59 16 134/62 (89) 95 Mechanical Ventilator 45.00 04/20/22 01:00 59 04/20/22 00:00 35.6 53 16 153/82 (100) 95 Mechanical Ventilator 45.00 04/19/22 23:56 95 Mechanical Ventilator 45 04/19/22 23:56 45 04/19/22 23:00 35.5 57 16 138/65 (92) 95 Mechanical Ventilator 45.00 04/19/22 22:43 48 145/68 04/19/22 22:43 51 136/75 04/19/22 22:36 51 136/75 04/19/22 22:25 48 16 93 45 04/19/22 22:00 35.6 51 16 144/68 (82) 94 Mechanical Ventilator 45.00 04/19/22 21:00 35.7 48 16 141/67 (99) 94 Mechanical Ventilator 45.00 04/19/22 20:00 35.9 58 16 130/59 (85) 94 Mechanical Ventilator 45.00 04/19/22 19:45 94 Mechanical Ventilator 45 04/19/22 19:41 45 04/19/22 19:00 36 65 16 130/59 (80) 95 Mechanical Ventilator 45.00 04/19/22 19:00 65 04/19/22 18:36 53 118/55 04/19/22 18:25 53 16 93 45 04/19/22 18:00 36.0 47 133/63 (86) 95 Mechanical Ventilator 45.00 04/19/22 17:00 36.3 59 134/68 (90) 95 Mechanical Ventilator 45.00 04/19/22 16:00 45 04/19/22 16:00 36.3 63 118/58 (78) 96 Mechanical Ventilator 45.00 04/19/22 16:00 96 Mechanical Ventilator 45 04/19/22 15:00 36.5 53 124/63 (83) 95 Mechanical Ventilator 45.00 04/19/22 15:00 36.3 04/19/22 14:36 48 136/61 04/19/22 14:36 48 136/61 04/19/22 14:21 48 16 96 45 04/19/22 14:21 48 136/61 04/19/22 14:18 36.7 04/19/22 14:00 36.8 66 131/64 (86) 96 Mechanical Ventilator 45.00 04/19/22 13:18 36.7 04/19/22 13:06 64 04/19/22 13:00 36.8 66 118/61 (80) 96 Mechanical Ventilator 45.00 04/19/22 12:00 36.9 57 135/60 (85) 96 Mechanical Ventilator 45.00 04/19/22 12:00 45 04/19/22 12:00 96 Mechanical Ventilator 45 04/19/22 11:00 36.9 66 127/66 (86) 96 Mechanical Ventilator 45.00 04/19/22 10:38 63 18 97 45 04/19/22 10:34 73 128/65 04/19/22 10:25 66 127/66 04/19/22 10:23 73 128/65 04/19/22 10:21 73 128/65 04/19/22 10:18 37.0 04/19/22 10:00 37.0 63 116/68 (84) 96 Mechanical Ventilator 45.00 04/19/22 09:18 36.7 04/19/22 09:17 73 128/65 I & O 04/20/22 07:00 Intake Total 2489 ml Output Total 3750 ml Balance -1261 ml Height & Weight Height: 6'2" Weight: 250lbs. 0.0oz. 113.031896hy; 47.84 BMI Method:Estimated General Appearance: No Apparent Distress, Obese HEENT: PERRL/EOMI Neck: Normal Inspection Respiratory: Lungs Clear, No Respiratory Distress, Other (intubated and mechanically ventilated) Cardiovascular: Regular Rate, Rhythm, No Murmur Capillary Refill: Less Than 3 Seconds Gastrointestinal: normal bowel sounds, no organomegaly Extremity: Pedal Edema, Swelling Neurologic/Psychiatric: Other (sedated) Skin: Other (right foot wound) Results Lab Laboratory Tests 04/18/22 09:30 04/19/22 03:31 04/20/22 04:04 Assessment/Plan Assessment/Plan 1 JAVIER MISTRY MD Apr 20, 2022 09:03
[2022-04-20] MEDS: RT--FLUTICASONE/SALMETEROL 232-14 (AIRDUO RespiCLICK) IH SCH ×2 (09:23→22:09)
[2022-04-20] MEDS: UMECLIDINIUM BROMIDE (INCRUSE ELLIPTA) 7'S IH SCH (09:24)
--- NOTE | 2022-04-20 09:35 | Diagnostic Imaging Report ---
INDICATION: Respiratory distress. COMPARISON: 04/19/2022. FINDINGS: The cardiac silhouette remains enlarged. There continues to be opacification of the lung bases bilaterally with probable infiltrate and pleural effusion. The ET tube overlies the tracheal shadow above the demi. The NG tube extends to the diaphragm in the midline and is not definitely seen below; however, due to morbid obesity and portable technique, the abdomen is underpenetrated. IMPRESSION: Overall appearance has changed very little when compared with the previous day's exam. Dictated by: Dictated on workstation # [id number]
[2022-04-20] MEDS: cefTRIAXone 2,000 MG/NS 50 ML IVPB IV SCH ×2 (10:00)
[2022-04-20] MEDS: fentaNYL DRIP PRE-MIX 250 ML IV SCH (10:06)
[2022-04-20] MEDS: aCETylcysteine 20% (MUCOMYST) 4 ML SOLN VIAL INH SCH ×3 (10:46→22:09)
[2022-04-20] MEDS ORDERED: guaiFENesin/CODEINE (ROBITUSSIN AC) 10ML UDC NG PRN (11:00)
--- NOTE | 2022-04-20 11:34 | Cardiology Progress Note ---
Subjective Date Seen by Provider: Apr 20, 2022 Time Seen by Provider: 11:32 Subjective/Events-last exam Patient sedated and intubated Objective-Cardiology Exam Last Set of Vital Signs Vital Signs 04/20/22 04/20/22 04/20/22 04/20/22 09:00 10:06 10:46 11:42 Temp 36.4 Pulse 58 Resp 16 B/P (MAP) 136/65 Pulse Ox 94 O2 Delivery Mechanical Ventilator O2 Flow Rate 45.00 FiO2 40 I&O Intake and Output 04/20/22 00:00 Intake Total 2308 ml Output Total 2975 ml Balance -667 ml IV Total 550 ml Tube Feeding 1025 ml Other 733 ml Output Urine Total 2975 ml General: Other (Sedated and intubated) HEENT: Atraumatic, PERRLA Lungs: Clear to Auscultation, Normal Air Movement Heart: Regular Rate, Normal S1, Normal S2 Abdomen: Normal Bowel Sounds Extremities: No Clubbing, No Cyanosis Skin: No Rashes Neuro: Other (Sedated and intubated) Psych/Mental Status: Other (Sedated and intubated) Results Lab Laboratory Tests 04/20/22 04:04 A/P-Cardiology Admission Diagnosis Acute respiratory failure Acute exacerbation of COPD Paroxysmal atrial fibrillation Diabetes mellitus Assessment/Plan Acute respiratory failure, ventilator dependent Hypercapnia, acute exacerbation of COPD Managed by medical team Change in mental status, patient was unresponsive when evaluated probably due to hypoxemia with anoxic brain injury. More arousable today, opening his eyes. Possible weaning trial tomorrow Pulmonary edema, given Lasix. Responded well to diuretics Continue to monitor. Coronary artery disease, cardiac catheterization in 2014 showed mild disease nonobstructive disease. 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 Peripheral angiogram was done on February 06, 2022 showing mild peripheral arterial disease nonobstructive disease. Chronic hyperkalemia. Paroxysmal atrial fibrillation, patient was in sinus rhythm on admission, appears to be in and out of atrial fibrillation Maintained on Eliquis 5 mg twice daily History of mild sinus bradycardia, has been tolerating metoprolol 100 mg twice daily. Restart and monitor Hypertension with hypertensive heart disease and diastolic dysfunction Has been maintained on amlodipine 10 mg daily, Cardura and metoprolol 50 mg twice daily. Acute on chronic renal failure, chronic kidney disease. Continue to monitor renal function closely Diabetes mellitus, followed and managed by primary care physician History of CVA in 2015, seizure disorder. History of right upper extremity venous thrombosis after central line placement. Bipolar disorder. Hyperlipidemia, intolerant to statin. Supervisory-Addendum Brief Supervisory Addendum Participated in pt care: history, MDM, physical Personally performed: exam, history, MDM Care discussed with: JOSE Results interpretation: Verified all documentation Notes: Patient was seen and evaluated with Dora, examination performed, management plan was discussed, agree with the current scribed note, I made few changes to the note using Italic font DORA DOBBINS Apr 20, 2022 11:34 TIMUR HAWKINS MD Apr 20, 2022 12:44
[2022-04-20] MEDS: methylPREDNISolone 125 MG (Solu-MEDROL) VIAL IVP SCH ×3 (12:56→23:52)
[2022-04-20] MEDS: LORazepam INJ 2 MG/ML (ATIVAN) VIAL IVP PRN (13:25)
[2022-04-20] MEDS: meTOprolol 5 MG/5 ML (LOPRESSOR) VIAL IV PRN (18:46)
--- NOTE | 2022-04-20 19:05 | Progress Note - Hospitalist ---
Subjective HPI/CC On Admission Date Seen by Provider: Apr 20, 2022 Time Seen by Provider: 09:30 Subjective/Events-last exam He remains intubated and sedated. Objective Exam Vital Signs Vital Signs Date Time Temp Pulse Resp B/P (MAP) Pulse Ox O2 Delivery O2 Flow Rate FiO2 04/20/22 18:45 NIV Bilevel 45.00 04/20/22 18:44 99 20 96 45 04/20/22 18:00 180/95 (123) 04/20/22 16:30 36.5 Capillary Refill : Less Than 3 Seconds General Appearance: No Apparent Distress, Obese Respiratory: Lungs Clear, No Respiratory Distress, Other (intubated and mechanically ventilated) Cardiovascular: Regular Rate, Rhythm, No Murmur Gastrointestinal: Normal Bowel Sounds, Soft Extremity: Pedal Edema, Swelling, Other (foot wound) Neurologic/Psychiatric: Other (sedated) Skin: Warm/Dry, Other (foot wound) Results/Procedures Lab Laboratory Tests 04/20/22 04:04 Patient resulted labs reviewed. Imaging: Reviewed Imaging Report Assessment/Plan Assessment and Plan Assess & Plan/Chief Complaint Acute respiratory failure with hypoxia and hypercapnia Endotracheally intubated Pneumonia Remains intubated TeleICU following MAT protocol Continue antibiotics UTI Continue antibiotics JARRET on CKD stage 3a Stable T2DM SSI HTN AFib Bipolar disorder BPH Continue home meds as appropriate Morbid obesity Clinically significant, no acute management needs DVT ppx: Already receiving therapeutic anticoagulation Hyperkalemia, resolved Critical Care Critically Ill Patient Diagnosis/Problems Diagnosis/Problems (1) Acute on chronic respiratory failure with hypoxia and hypercapnia Status: Acute (2) PNA (pneumonia) Status: Acute (3) UTI (urinary tract infection) Status: Acute (4) Acute kidney injury superimposed on chronic kidney disease Status: Acute (5) T2DM (type 2 diabetes mellitus) Status: Chronic Qualifiers: Diabetes mellitus long term care pharmacist insulin use: with fci use Diabetes mellitus complication status: with skin complications Diabetes mellitus complication detail: with other skin complication Qualified Codes: E11.628 - Type 2 diabetes mellitus with other skin complications; Z79.4 - skilled nursing (current) use of insulin (6) Atrial fibrillation Status: Chronic (7) Morbid obesity Status: Chronic (8) Seizure disorder Status: Chronic (9) Endotracheally intubated Status: Acute GUALBERTO ROJAS MD Apr 20, 2022 19:05
[2022-04-20] MEDS ORDERED: LABETALOL HCL 20 MG/4 ML VIAL ONE (20:50)
[2022-04-20] MEDS: LABETALOL HCL 20 MG/4 ML VIAL IV PRN (20:52)
[2022-04-20] MEDS: DexMEDEtomidine 250 ML DRIP 250 ML IV SCH (22:45)
[2022-04-21] MEDS: LORazepam INJ 2 MG/ML (ATIVAN) VIAL IVP PRN ×2 (01:29→21:15)
[2022-04-21 02:24] VITALS: BP 181/99
[2022-04-21] MEDS: RT-ALBUTEROL/IPRATROPIUM 3 ML (DUONEB) VIAL INH SCH ×6 (02:24→22:26)
[2022-04-21] MEDS: aCETylcysteine 20% (MUCOMYST) 4 ML SOLN VIAL INH SCH ×4 (02:24→22:26)
[2022-04-21] MEDS: LABETALOL HCL 20 MG/4 ML VIAL IV PRN ×2 (02:55→17:11)
[2022-04-21] MEDS: inSUlin ASPART (NovoLOG) 1 UNIT/0.01 ML (CHARGE PER UNIT) SC SCH ×6 (03:51→21:14)
[2022-04-21 04:07] LABS: BASOPHILS % (AUTO) 0 % (0-10); EOSINOPHILS % (AUTO) 0 % (0-10); HEMATOCRIT 37 % (40-54); HEMOGLOBIN 10.5 g/dL (13.3-17.7); LYMPHOCYTES # (AUTO) 0.3 10^3/uL (1.0-4.0); LYMPHOCYTES % (AUTO) 3 % (12-44); MEAN CORPUSCULAR HEMOGLOBIN 26 pg (25-34); MEAN CORPUSCULAR HGB CONC 28 g/dL (32-36); MEAN CORPUSCULAR VOLUME 90 fL (80-99); MEAN PLATELET VOLUME 12.7 fL (9.0-12.2); MONOCYTES % (AUTO) 0 % (0-12); NEUTROPHILS # (AUTO) 10.2 10^3/uL (1.8-7.8); NEUTROPHILS % (AUTO) 96 % (42-75); PLATELET COUNT 240 10^3/uL (130-400); WHITE BLOOD COUNT 10.6 10^3/uL (4.3-11.0)
[2022-04-21 04:09] LABS: ABG BASE EXCESS -2.3 MMOL/L (-2.5-2.5); ABG OXYGEN SATURATION 96 % (94-100); ABG PCO2 44 MMHG (35-45); ABG PO2 74 MMHG (79-93); ABG TCO2 24.1 MMOL/L (21.0-31.0)
[2022-04-21 04:10] LABS: ALLENS TEST YES-POS; INSPIRED O2 40%; PATIENT TEMP 36.8; VENTILATOR NO
[2022-04-21 04:14] LABS: ABG PH 7.33 (7.37-7.43)
[2022-04-21 04:15] LABS: ALBUMIN 3.1 GM/DL (3.2-4.5); POTASSIUM 5.6 MMOL/L (3.6-5.0)
[2022-04-21] MEDS: meTOprolol 5 MG/5 ML (LOPRESSOR) VIAL IV PRN (04:15)
[2022-04-21] MEDS: methylPREDNISolone 125 MG (Solu-MEDROL) VIAL IVP SCH ×4 (04:16→23:33)
[2022-04-21 04:17] LABS: CALCIUM 9.4 MG/DL (8.5-10.1)
[2022-04-21 04:20] LABS: BILIRUBIN,TOTAL 0.5 MG/DL (0.1-1.0)
[2022-04-21 04:21] LABS: PHOSPHORUS 4.4 MG/DL (2.3-4.7)
[2022-04-21 04:22] LABS: CREATININE SERUM 1.61 MG/DL (0.60-1.30)
[2022-04-21 04:25] LABS: MAGNESIUM 2.4 MG/DL (1.6-2.4)
[2022-04-21] MEDS: MAGNESIUM 1 GM/100 ML IVPB 100 ML IV SCH (04:29)
[2022-04-21] MEDS: KCL 20 MEQ TAB (K-DUR) PO SCH (04:29)
[2022-04-21] MEDS: PROPOFOL DRIP (ICU) 100 ML IV SCH ×3 (04:29→22:50)
[2022-04-21] MEDS: POTASSIUM CL 10MEQ/50ML IVPB 50 ML IV SCH (04:29)
[2022-04-21 04:54] LABS: BAND NEUTROPHILS 2 %; BASOPHILS % (MANUAL) 0 %; EOSINOPHILS % (MANUAL) 0 %; LYMPHOCYTES % (MANUAL) 2 %; MONOCYTES % (MANUAL) 0 %; NEUTROPHILS % (MANUAL) 96 %
[2022-04-21 04:55] LABS: ANISOCYTOSIS MODERATE; ELLIPT/OVALOCYTES SLIGHT; HYPOCHROMASIA MODERATE; POIKILOCYTOSIS MODERATE; POLYCHROMASIA SLIGHT; SCHISTOCYTES SLIGHT; TARGET CELLS SLIGHT; TEAR DROP CELLS SLIGHT
[2022-04-21 07:41] VITALS: BP 175/95
--- NOTE | 2022-04-21 08:09 | Cardiology Progress Note ---
Subjective Date Seen by Provider: Apr 21, 2022 Time Seen by Provider: 08:07 Subjective/Events-last exam Patient was seen at bedside, laying down comfortably, self extubated last night. Currently on BiPAP and tolerating it well Review of Systems General: No Chills, No Night Sweats; Fatigue, Malaise; No Appetite, No Other HEENT: No Head Aches, No Visual Changes, No Eye Pain, No Ear Pain, No Dysphasia, No Sinus Congestion, No Post Nasal Drip, No Sore Throat, No Other Pulmonary: Dyspnea; No Cough, No Pleuritic Chest Pain, No Other Cardiovascular: No: Chest Pain, Palpitations, Orthopnea, Paroxysmal Noc. Dyspnea, Edema, Lt Headedness, Other Objective-Cardiology Exam Last Set of Vital Signs Vital Signs 04/21/22 04/21/22 04/21/22 04:26 06:00 07:41 Temp 36.7 Pulse 63 Resp 15 B/P (MAP) 188/99 (128) Pulse Ox 97 O2 Delivery NIV Bilevel O2 Flow Rate 30.00 FiO2 30 I&O Intake and Output 04/21/22 00:00 Intake Total 2549 ml Output Total 3200 ml Balance -651 ml Intake Oral 0 ml IV Total 400 ml Tube Feeding 1118 ml Other 1031 ml Output Urine Total 3200 ml # Voids 2 # Urine Diapers 4 # Bowel Movements 4 General: Alert, Oriented X3, Cooperative HEENT: Atraumatic, PERRLA Neck: Supple Lungs: Clear to Auscultation, Normal Air Movement Heart: Regular Rate, Normal S1, Normal S2 Abdomen: Normal Bowel Sounds Extremities: No Clubbing, No Cyanosis Skin: No Rashes Neuro: Normal Speech Psych/Mental Status: Mental Status NL, Mood NL Results Lab Laboratory Tests 04/21/22 04:00 A/P-Cardiology Admission Diagnosis Acute respiratory failure Acute exacerbation of COPD Paroxysmal atrial fibrillation Diabetes mellitus Assessment/Plan Status post acute respiratory failure Self extubated on 04/20/2022 Continue to monitor Acute exacerbation of COPD with hypercapnic respiratory failure, better at this time. Continue to monitor Change in mental status, patient was unresponsive when evaluated probably due to hypoxemia with anoxic brain injury. Back to baseline at this time. Continue to monitor Pulmonary edema, given Lasix. Responded well to diuretics Continue to monitor. Coronary artery disease, cardiac catheterization in 2014 showed mild disease nonobstructive disease. 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 Peripheral angiogram was done on February 06, 2022 showing mild peripheral arterial disease nonobstructive disease. Chronic hyperkalemia. Intolerant to MARY JANE inhibitor and/or ARB Paroxysmal atrial fibrillation, patient was in sinus rhythm on admission, appears to be in and out of atrial fibrillation Maintained on Eliquis 5 mg twice daily History of mild sinus bradycardia, has been tolerating metoprolol 100 mg twice daily. Restart and monitor Hypertension with hypertensive heart disease and diastolic dysfunction Has been maintained on amlodipine 10 mg daily, Cardura and metoprolol 50 mg twice daily. I will restart amlodipine and Cardura, continue on metoprolol Add hydrochlorothiazide Acute on chronic renal failure, chronic kidney disease. Continue to monitor renal function closely Diabetes mellitus, followed and managed by primary care physician History of CVA in 2014, seizure disorder. History of right upper extremity venous thrombosis after central line placement. Bipolar disorder. Hyperlipidemia, intolerant to statin. TIMUR HAWKINS MD Apr 21, 2022 08:09
--- NOTE | 2022-04-21 08:36 | Speech Therapy Progress Note ---
Therapy Progress Note Speech pathology received the consultation for a clinical bedside swallowing evaluation, completed a chart review, and attempted completion at 0820. At this time, the patient is receiving BiPAP support and was provided Precedex. The RN requested 15 minutes to switch the patient to a nasal cannula and allow the patient to return to a more wakeful state. The clinician has a patient scheduled at 0900 and 1115. The clinician will re-attempt the evaluation (schedule pe nding) at approximately 0930, as appropriate. The information was provided to the RN. SUJATHA GREER Apr 21, 2022 08:36
--- NOTE | 2022-04-21 08:39 | Tele-ICU Progress Note ---
Subjective Date Seen by a Provider: Apr 21, 2022 Time Seen by a Provider: 08:39 Subjective/Events-last exam - (Tele-ICU Physician , Progress Note ) Available chart/ vitals / labs / Images reviewed Video assessment done using teleICU camera, rest of exam as per RN Discussed with RN Events overnight : FEBRILE hemodynamically stable Respiratory - bipap I/O =neg 300 Drips: Pressors- no Consultants: Hospital course: (04/17) 57 y M found at medical facility found unresponsive with pulse INTUBATED protect airway possible PNA and UTI, hyperkalemia with reversal 04/18 - elev TGL - added precedex 04/19- 45% +5 . ETT adjusrted 05/21- dieter with precedex , add ativan prn , High airway pressures - added Solumedrol IV , added mucomist neb 04/20, 40% +5 04/20 SELF EXTUBATED during SBT , on Bipap overning A/P Acute resp failure, presumed pulm edema - -Intubated 04/17-04/20 SELF EXTUBATED during SBT , -on Bipap overning , to wean off - diuresis as per cards -secreations moderate , thick as per RN report - added mucomist neb 04/20 -added Solumedrol IV 04/20 - wheezing dvekgd99/13- will keep IV steroids today Pulm edema - ECHO 04/18 22- EF 55% , RVSP 40 mmHg - cards consulted UTI ( klebsiella ) + GNR in sputum 04/17 - abx - rocephin COPD - cont nebs - -added Solumedrol IV 04/20 - wheezing /13- will keep IV steroids today Chronic resp failure - ? OHS + COPD - ? 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 use NIPPV JARRET/ CKD - ( requiring HD in 2003) - stable with slight increase Cr again Hypernatremia - with diuresis , will start on free water today untill wwill pass swallow satudy hyperkalemia PAF - rate controlled - was on eliquis [employer] PROMOTER - to continue DM - -ISS - periph neuropathy - neurontin chronic DVTs s/p remote IVC filter, - Eliquis to cont Anemia - no active bleeding , cont to monitor h/o R MCA CVA 06/2015 and 11/2015 - monitor h/o SZ ? reported by patient on previous admission - depacote 250 tid - ? bipolar tx vs sz - resumed H/o RA - not on immunomodulators Triglycerinemia- RESOLVED - 1300 on propofol on 04/19 - OFF propofol UNresponsive on admission= RESOLVED -CTH - no acute findings - due to CO2 retention Lines : R fem line 04/17 - removed 04/18 , PICC RUE 04/18 , (Central Line Necessity Reviewed) Ott: can not be placed , external catheter applied OG: + Nutrition: Analgesia: Anxiety/ delirium VTE Prophylaxis: eliquis Stress Ulcer Prophylaxis:ppi Plans in collaboration with bedside consultants and IM MDs. Discussed with RN to reach out if any questions or concerns A total of 35 minutes of critical care time was devoted to this patient today, required to treat and/or prevent further deterioration of critical care cond ition ( as above ) . Sepsis Event Evaluation Height, Weight, BMI Height: 6'2" Weight: 250lbs. 0.0oz. [id number]; 46.24 BMI Method:Estimated Exam Exam Patient acknowledged, consented, and participated in this virtual visit which was conducted using real time audio/video Vital Signs Date Time Temp Pulse Resp B/P (MAP) Pulse Ox O2 Delivery O2 Flow Rate FiO2 04/21/22 07:41 36.7 04/21/22 07:41 61 20 98 25.00 04/21/22 07:00 63 04/21/22 06:00 63 15 188/99 (128) 97 NIV Bilevel 30.00 04/21/22 05:00 64 49 159/95 (116) 96 NIV Bilevel 30.00 04/21/22 04:26 97 NIV Bilevel 30 04/21/22 04:25 36.6 NIV Bilevel 30.00 04/21/22 04:00 59 21 186/94 (124) 97 NIV Bilevel 40.00 04/21/22 03:00 62 14 175/88 (117) 95 NIV Bilevel 40.00 04/21/22 02:24 64 16 99 30.00 04/21/22 02:00 70 18 181/99 (126) 97 NIV Bilevel 40.00 04/21/22 01:07 59 04/21/22 01:00 70 12 171/91 (117) 98 NIV Bilevel 40.00 04/21/22 00:00 36.3 96 NIV Bilevel 40.00 04/21/22 00:00 65 16 148/60 (89) 96 NIV Bilevel 40.00 04/20/22 23:57 96 NIV Bilevel 40 04/20/22 23:33 75 13 97 45 04/20/22 23:00 92 16 167/79 (108) 100 NIV Bilevel 45.00 04/20/22 22:45 111 04/20/22 22:00 70 20 175/102 (126) 98 NIV Bilevel 45.00 04/20/22 21:00 84 25 178/110 (132) 96 NIV Bilevel 45.00 04/20/22 20:25 82 176/94 04/20/22 20:00 95 NIV Bilevel 45 04/20/22 20:00 36.5 NIV Bilevel 45.00 04/20/22 20:00 82 25 176/94 (121) 95 NIV Bilevel 45.00 04/20/22 19:00 72 26 172/99 (123) 96 NIV Bilevel 45.00 04/20/22 18:58 66 04/20/22 18:45 NIV Bilevel 45.00 04/20/22 18:44 99 20 96 45 04/20/22 18:00 103 12 180/95 (123) 97 Non Rebreather 15.00 04/20/22 17:00 84 19 172/78 (109) 99 Non Rebreather 15.00 04/20/22 16:35 Non Rebreather 15.00 04/20/22 16:30 36.5 78 19 159/104 (122) 96 Mechanical Ventilator 40.00 04/20/22 16:15 36.5 71 19 169/88 (115) 96 Mechanical Ventilator 40.00 04/20/22 16:05 66 139/76 04/20/22 16:00 36.5 72 13 159/104 (122) 96 Mechanical Ventilator 40.00 04/20/22 16:00 93 Mechanical Ventilator 45 04/20/22 16:00 45 04/20/22 15:48 77 18 95 45 04/20/22 15:00 36.4 56 13 163/77 (105) 95 Mechanical Ventilator 40.00 04/20/22 14:30 58 16 94 45 04/20/22 14:00 36.4 62 16 150/89 (109) 95 Mechanical Ventilator 40.00 04/20/22 13:00 36.4 66 16 139/76 (97) 96 Mechanical Ventilator 40.00 04/20/22 12:45 93 04/20/22 12:00 36.2 04/20/22 12:00 36.3 67 32 98/73 (81) 95 Mechanical Ventilator 40.00 04/20/22 12:00 45 04/20/22 12:00 95 Mechanical Ventilator 45 04/20/22 11:42 Mechanical Ventilator 45.00 04/20/22 11:00 36.3 57 22 149/82 (104) 93 Mechanical Ventilator 40.00 04/20/22 10:46 58 16 94 40 04/20/22 10:06 57 136/65 04/20/22 10:00 36.6 71 48 136/72 (93) 91 Mechanical Ventilator 40.00 04/20/22 09:00 36.4 57 15 136/65 (88) 94 Mechanical Ventilator 40.00 I & O 04/21/22 07:00 Intake Total 1703 ml Output Total 2900 ml Balance -1197 ml Height & Weight Height: 6'2" Weight: 250lbs. 0.0oz. [id number]; 46.24 BMI Method:Estimated General Appearance: No Apparent Distress, Obese HEENT: PERRL/EOMI Neck: Normal Inspection Respiratory: Lungs Clear, No Respiratory Distress, Other (intubated and mech anically ventilated) Cardiovascular: Regular Rate, Rhythm, No Murmur Capillary Refill: Less Than 3 Seconds Gastrointestinal: normal bowel sounds, no organomegaly Extremity: Pedal Edema, Swelling, Other (foot wound) Neurologic/Psychiatric: Other (sedated) Skin: Warm/Dry, Other (foot wound) Results Lab Laboratory Tests 04/20/22 04:04 04/21/22 04:00 Assessment/Plan Assessment/Plan 1 JAVIER MISTRY MD Apr 21, 2022 08:39
[2022-04-21] MEDS ORDERED: LOSARTAN 50 MG (COZAAR) TAB PO SCH (09:00)
--- NOTE | 2022-04-21 10:12 | ST Dysphagia Evaluation ---
Speech Evaluation-General Medical Diagnosis Pneumonia, UTI Onset Date: Apr 17, 2022 Therapy Diagnosis Therapy Diagnosis: Oropharyngeal Dysphagia Precautions Precautions: Fall, Pressure Ulcer, Aspiration Precautions/Isolations: Contact Isolation, Aspiration, Fall Prevention, Pressure Ulcer Referral Referring Physician: Dr. Jeter Reason for Referral: Evaluation/Treatment Medical History Pertinent Medical History: Arthritis, CAD, CVA, DM, Diverticulitis, GERD, HTN, MS, Neuropathy, PVD, Rheumatoid Arthritis, Smoking Current History The patient is a 57 year-old male with a past medical history of diabetes, CHF, HTN, hypoxia, neuropathy, anxiety, atrial fibrillation, CKD, GERD, CAD, high cholesterol, peripheral vascular disease, valvular heart disease, diverticulo sis, hiatal hernia, fibromyalgia, and rheumatoid arthritis, who presents the emergency department via EMS from a local nursing facility after being found unresponsive. The patient was diagnosed with pneumonia and an UTI. The patient was intubated from 04/17/2022 to 04/21/2022 when the patient self- extubated. Reviewed History: Yes Speech PLF/Current-Dysphagia Prior Level of Function The patient was unable to provide prior level of function information to the clinician due to reduced responsiveness and mental status. Cognitive Status Patient Orientation: Person, Place The patient is frequently unintelligible, with reduced articulation and a breathy, weak vocal quality. Oral Motor Skills Dentition: Edentalous (Upper), Natural (Lower) Ability to Follow Directions: Poor Oral Expression Ability: Moderate Impairment Observation: Excessive Secretions Oral, Excessive Excretion Hypopharynx, Oral Cavity Suction Voice Voice Phonatory-Based Quality: Breathy, Weak Voice Pitch: Normal Voice Loudness: Severely Soft/Quiet Face Facial Symmetry: Symmetrical (At rest.) Oral-Facial Assessment Oral-Facial Dentition: Normal Labial Seal Description: Weak Lingual Protrusion: Normal Lingual ROM: Normal Lingual Strength: Abnormal (Weak, bilaterally.) Volitional Dry Swallow: No Voluntary Cough: Yes Can Clear Throat Volitionally: Yes Productive Cough: Yes Productive Throat Clear: Yes Dysphagia Evaluation Consistencies Presented: Thin Liquid (Ice Chip, Teaspoon), Pureed (Teaspoon) Oral Phase: Reduced Oral Transit The patient displayed difficulty drawing material from the teaspoon (water and puree). Maximum verbal prompting was required for the patient to round his lips and remove bolus material, as the clinician continuously stated she would not "dump" material into the oral cavity (as this practice increases aspiration risks). Once the patient was able to draw material from the teaspoon, limited lingual manipulation occurred with intermittent oral holding behaviors present. * During two occasions, the patient returned to sleep with puree consistencies in the oral cavity. With verbal prompting, the patient would wake and continue the swallow response. The patient has a weak, breathy vocal quality displaying poor vocal cord adduction throughout phonation and reduced airway protection throughout the swallow. Funct. Velo/Pharyngeal Symptom: Cough After Swallow (Rigorous.) The patient was provided ice chips (two), thin liquid via teaspoon (four), and applesauce half teaspoons (six). The patient displayed a rigorous cough with three of four teaspoons of water and three of six half teaspoons of applesauce. Additionally, the patient returned to sleep between each bolus provided and throughout his interaction with his physician (Dr. Jeter). Trials were ended at this time due to the patient's lethargy and overt s/s of suspected aspiration that were clearly demonstrated. Dietary Recommendations: NPO Liquid Recommendations: NPO Recommendations: - The patient should remain NPO. - Frequent and excellent oral care should be provided to reduce the transfer of oral bacteria to the lungs should aspiration of secretions occur. - Speech pathology will continue to re-assess the oropharyngeal swallowing function as appropriate. The recommendations were provided to the patient and the patient's RN upon completion. The patient will need to demonstrate increased alertness and reduced overt s/s of suspected aspiration with P.O. trials prior to a diet consistency recommendation by speech pathology. Dysphagia Evaluation Summary The patient demonstrated oropharyngeal dysphagia characterized by decreased lingual and oral coordination and poor airway protection in the presence of bolus material. The patient's oropharyngeal swallowing function was negatively impacted by the patient's lethargy and suspected decreased vocal fold adduction. Speech Short Term Goals Short Term Goals Short Term Goals 1. The patient will tolerate trials of the least restrictive diet consistency without s/s of suspected aspiration. Time Frame-STG: Three Days. Speech Snf Goals Replenishment Merchandising Associate Goals 1. The patient will tolerate the least restrictive diet consistency without s/s of suspected aspiration. Time Frame: One Week. Speech-Plan Treatment Plan Speech Therapy Treatment Plan: Continue Plan of Care Treatment Duration: Apr 28, 2022 Frequency: 3 times per week Estimated Hrs Per Day: .25 hour per day Rehab Potential: Poor Safety Risks/Education Teaching Recipient: Patient Teaching Methods: Discussion Response to Teaching: Reinforcement Needed Education Topics Provided: Results, Recommendations, Plan of Care Time Speech Therapy Time In: 09:30 Speech Therapy Time Out: 10:05 Total Billed Time: 35 Billed Treatment Time 1NIRMAL DYST LOY, ELIZABETH ST Apr 21, 2022 10:12
[2022-04-21] MEDS ORDERED: hydrALAZINE (APESOLINE) 20 MG/ML VIAL IV PRN (10:15)
[2022-04-21] MEDS: cefTRIAXone 2,000 MG/NS 50 ML IVPB IV SCH ×2 (10:21)
[2022-04-21] MEDS: D5W 1000 ML IV SOLUTION 1,000 ML IV SCH ×2 (10:22→21:58)
[2022-04-21] MEDS: PANTOPRAZOLE 40 MG (PROTONIX) VIAL IV SCH (10:23)
[2022-04-21] MEDS: RT--FLUTICASONE/SALMETEROL 232-14 (AIRDUO RespiCLICK) IH SCH ×2 (10:30→22:26)
[2022-04-21] MEDS: UMECLIDINIUM BROMIDE (INCRUSE ELLIPTA) 7'S IH SCH (10:30)
[2022-04-21] MEDS: COLLAGENASE 30 GM (SANTYL) TUBE TP SCH (10:36)
--- NOTE | 2022-04-21 10:38 | Physical Therapy Evaluation ---
PT Evaluation-General Medical Diagnosis Admission Date Apr 17, 2022 at 12:59 Medical Diagnosis: JARRET Onset Date: Apr 17, 2022 Therapy Diagnosis Therapy Diagnosis: generalized weakness/debility Height/Weight Height (Feet): 6 Height (Inches): 2 Weight (Pounds): 250 Weight (Ounces): 0.0 Precautions Precautions/Isolations: Contact Isolation, Aspiration, Seizure, Fall Prevention, Standard Precautions, Pressure Ulcer Referral Physician: Mason Reason for Referral: Evaluation/Treatment Medical History Pertinent Medical History: Atrial Fib, Arthritis, CAD, CVA, DM, Diverticulitis, GERD, Heart Failure, HTN, SD, Neuropathy, PVD, Renal Insufficiency, Rheumatoid Arthritis, Smoking Additional Medical History Covid Current History EMS from [place] secondary to found unresponsive Reviewed History: Yes Social History Home: Residential Prior Prior Level of Function SCALE: Activities may be completed with or without assistive devices. 8-Utfbluoyyt-unvxpyt completes the activity by him/herself with no assistance from a helper. 5-Set-up or Clean-up Assistance-helper sets up or cleans up; patient completes activity. [place] assists only prior to or following the activity. 4-Supervision or Touching Assistance-helper provides verbal cues and/or touching/steadying and/or contact guard assistance as patient completes activity. Assistance may be provided throughout the activity or intermittently. 3-Partial/Moderate Assistance-helper does LESS THAN HALF the effort. [place] lifts, holds or supports trunk or limbs, but provides less than half the effort. 2-Substantial/Maximal Assistance-helper does MORE THAN HALF the effort. [place] lifts or holds trunk or limbs and provides more than half the effort. 7-Qvlcrdwjm-abggjw does ALL the effort. Patient does none of the effort to complete the activity. Or, the assistance of 2 or more helpers is required for the patient to complete the activity. If activity was not attempted, code reason: 7-Patient Refused. 9-Not Applicable-not attempted and the patient did not perform the activity before the current illness, exacerbation or injury. 10-Not Attempted due to Environmental Limitations-(lack of equipment, weather restraints, etc.). 88-Not Attempted due to Medical Conditions or Safety Concerns. Bed Mobility: 4 Transfers (B,C,W/C): 4 PT Evaluation-Current Subjective Patient is on BiPap and "squirming" in bed. Objective Patient Orientation: Listless Attachments: Oxygen, Ott Catheter (modified), Other-See Comments (rectal tube/), IV ROM/Strength ROM Lower Extremities bilateral LE WFL Strength Lower Extremities unable to test (patient moving bilateral LE in bed) Integumentary/Posture Bowel Incontinence: Yes Bladder Incontinence: Ott Cath (modified) Neuromuscular (Tone, Coordination, Reflexes) NT Sensory Vision: Unable to Assess Hearing: Unable to Assess Transfers Roll Left to Right (QC): 1 (x 3) Sit to Lying (QC): 88 Lying to Sitting/Side of Bed(Q: 88 Assessment/Needs Patient will benefit from skilled PT to address functional strength and mobility to improve current LOF. Patient is currently mildly sedated and on BiPap. Patient, per RN, has been trying to remove IV and BiPap. Rehab Potential: Guarded PT Short Term Goals Short Term Goals Time Frame: May 07, 2022 Roll Left & Right: 2 Sit to lyin Lying to sitting on side of be: 2 Sit to stand: 2 Chair/epz-cz-yptsn transfer: 2 PT Longterm Goals Longterm Goals PT Longterm Goals Time Frame: May 21, 2022 Roll Left & Right (QC): 3 Sit to Lying (QC): 3 Lying-Sitting on Side/Bed(QC): 3 Sit to Stand (QC): 3 Chair/Ppu-qh-Qpsrk Xfer(QC): 3 Toilet Transfer (QC): 3 Walk 10 feet (QC): 3 PT Plan Problem List Problem List: Activity Tolerance, Functional Strength, Safety, Balance, Gait, Transfer, Bed Mobility Treatment/Plan Treatment Plan: Continue Plan of Care Treatment Plan: Bed Mobility, Education, Functional Activity Pancho, Functional Strength, Gait, Safety, Therapeutic Exercise, Transfers Treatment Duration: May 21, 2022 Frequency: 5 times per week Estimated Hrs Per Day: .25 hour per day Time/GCodes Time In: 730 Time Out: 740 Total Billed Treatment Time: 10 Total Billed Treatment 1 visit EVModC 10 min SAYRA HI PT Apr 21, 2022 10:38
--- NOTE | 2022-04-21 11:42 | Occupational Therapy Eval ---
OT Evaluation-General/PLF Medical Diagnosis Admission Date Apr 17, 2022 at 12:59 Medical Diagnosis: JARRET Onset Date: Apr 17, 2022 Therapy Diagnosis Therapy Diagnosis: dependent adls Height/Weight Height (Feet): 6 Height (Inches): 2 Weight (Pounds): 250 Weight (Ounces): 0.0 Precautions Precautions/Isolations: Contact Isolation, Aspiration, Fall Prevention, Pressure Ulcer Referral Physician: Mason Referral Reason: Evaluation/Treatment Medical History Pertinent Medical History: Atrial Fib, Arthritis, CAD, CVA, DM, Diverticulitis, GERD, Heart Failure, HTN, DC, Neuropathy, PVD, Renal Insufficiency, Rheumatoid Arthritis, Smoking Current History Pt presents from [facility] after being found unresponsive. Diagnosed with pneumonia and UTI. Pt is a poor historian and unable to give any information regarding PLOF. He was able to shake head yes when asked if he lives at [facility]. OT called facility to retrieve PLOF. Per staff, pt is dependent for bathing, dressing, and toileting. He was using a urinal but has had increased incontinence episodes that last couple of weeks. Staff state that he was using a transfer pole and staff to transfer in/out of w/c but has lately been using a [place]. Pt is pretty sedentary and no longer propel's w/c when in it. He is able to feed self independently. Reviewed History: Yes Social History Home: Long Term Entry Into Home: Level Entry ADL-Prior Level of Function SCALE: Activities may be completed with or without assistive devices. 1-Nyokujmunr-crglotx completes the activity by him/herself with no assistance fr om a helper. 5-Set-up or Clean-up Assistance-helper sets up or cleans up; patient completes activity. [place] assists only prior to or following the activity. 4-Supervision or Touching Assistance-helper provides verbal cues and/or touching/steadying and/or contact guard assistance as patient completes activity. Assistance may be provided throughout the activity or intermittently. 3-Partial/Moderate Assistance-helper does LESS THAN HALF the effort. [place] lifts, holds or supports trunk or limbs, but provides less than half the effort. 2-Substantial/Maximal Assistance-helper does MORE THAN HALF the effort. [place] lifts or holds trunk or limbs and provides more than half the effort. 4-Bnkqxcqgp-rnbupu does ALL the effort. Patient does none of the effort to complete the activity. Or, the assistance of 2 or more helpers is required for the patient to complete the activity. If activity was not attempted, code reason: 7-Patient Refused. 9-Not Applicable-not attempted and the patient did not perform the activity before the current illness, exacerbation or injury. 10-Not Attempted due to Environmental Limitations-(lack of equipment, weather restraints, etc.). 88-Not Attempted due to Medical Conditions or Safety Concerns. Self Care: Dependent Functional Cognition: Unknown OT Current Status Subjective Pt attempts to speak but words are muffled and unable to be understood. Appearance Pt left reclined in bed, all needs within reach. RN notified. Mental Status/Objective Patient Orientation: Person, Unable to Assess Attachments: Ott Catheter, IV, Oxygen, SCD's, Telemetry Current Hand Dominance: Right Upper Extremity ROM RUE WFL, slight edema noted in R hand Left shoulder: ~45 degrees AROM, ~80 degrees PROM Upper Extremity Strength Unable to understand directions ADL-Treatment Eating (QC): 5 (per clinical judgment, pt is NPO at this time) Lower Body Dressing (QC): 1 On/Off Footwear (QC): 1 Toileting Hygiene (QC): 1 Pt reclined in bed at OT arrival. Per PT note, pt requires assist x3 to roll in bed. Pt able to demonstrate ability to grasp small items (such as silverware) and bring to his mouth without difficulty (with RUE). Per group home staff, pt is dependent for all adls except eating. At this time, pt is at baseline for adls. No further OT services warranted at this time. Education OT Patient Education: Correct positioning, Purpose of tx/functional activities Teaching Recipient: Patient Teaching Methods: Demonstration, Discussion Response to Teaching: Return Demonstration OT Custodial Goals Custodial Goals 1=Demonstrate adherence to instructed precautions during ADL tasks. 2=Patient will verbalize/demonstrate understanding of assistive devices/modifications for ADL. 3=Patient will improve strength/tolerance for activity to enable patient to perform ADL's. OT Education/Plan Problem List/Assessment Assessment: No Skilled OT Needs ID'd Discharge Recommendations Plan/Recommendations: Discontinue OT Comment Return to LTC with continued staff assist for adls Treatment Plan/Plan of Care Treatment,Training & Education: Yes Patient would benefit from OT for education, treatment and training to promote independence in ADL's, mobility, safety and/or upper extremity function for ADL 's. Plan of Care: ADL Retraining, Functional Mobility Treatment Duration: Apr 21, 2022 Frequency: 1 time per week Estimated Hrs Per Day: .25 hour per day Rehab Potential: Guarded Time/GCodes Start Time: 10:56 Stop Time: 11:06 Total Time Billed (hr/min): 10 Billed Treatment Time 1 visit Marcy Hernandez OT Apr 21, 2022 11:42
[2022-04-21] MEDS: VALPROIC ACID SYRUP 250 MG/5 ML UDC NG SCH ×3 (13:00→21:00)
[2022-04-21] MEDS: doxAzosin 4 MG (CARDURA) TAB PO SCH ×2 (13:00→21:00)
[2022-04-21] MEDS: DULoxetine 30 MG (CYMBALTA) CAP PO SCH (13:00)
[2022-04-21] MEDS: ASPIRIN E.C. 81 MG (ECOTRIN) TAB PO SCH (13:00)
[2022-04-21] MEDS: BRIMONIDINE 0.2% (ALPHAGAN) OPHTH SOLN 5 ML BTL OU SCH ×2 (13:00→21:14)
[2022-04-21] MEDS: GABAPENTIN 100 MG (NEURONTIN) CAP PO SCH ×3 (13:01→21:00)
[2022-04-21] MEDS: meTOprolol TARTRATE 50 MG (LOPRESSOR) TAB PO SCH ×2 (13:01→21:00)
[2022-04-21] MEDS: TAMSULOSIN 0.4 MG (FLOMAX) CAP PO SCH (13:01)
[2022-04-21] MEDS: MUPIROCIN 2% OINT 22 GM (BACTROBAN) TUBE TOP SCH ×2 (13:02→21:15)
[2022-04-21] MEDS: fentaNYL DRIP PRE-MIX 250 ML IV SCH (13:02)
[2022-04-21] MEDS: amLODIPine 10 MG (NORVASC) TAB PO SCH (13:02)
[2022-04-21] MEDS: ENOXAPARIN 300 MG/3 ML (LOVENOX) MULTI-DOSE VIAL SQ SCH ×2 (13:06→22:51)
--- NOTE | 2022-04-21 15:28 | Progress Note - Hospitalist ---
Subjective HPI/CC On Admission Date Seen by Provider: Apr 21, 2022 Time Seen by Provider: 09:50 Subjective/Events-last exam He is awake but sleepy. He dozes off during conversation. He denies pain. He denies shortness of breath. He is having a swallow evaluation done but is not participating appropriately due to sleepiness. His sister, Nella, was called and updated. Objective Exam Vital Signs Vital Signs Date Time Temp Pulse Resp B/P (MAP) Pulse Ox O2 Delivery O2 Flow Rate FiO2 04/21/22 15:00 98 17 182/101 (128) 96 High Flow N/C 3.00 04/21/22 12:00 100 04/21/22 11:59 36.4 Capillary Refill : Less Than 3 Seconds General Appearance: No Apparent Distress, Obese Respiratory: No Respiratory Distress, Decreased Breath Sounds, Wheezing Cardiovascular: Regular Rate, Rhythm, No Murmur Gastrointestinal: Normal Bowel Sounds, Soft Extremity: No Inflammation; Pedal Edema, Swelling Neurologic/Psychiatric: Alert (sleepy), Motor Weakness Skin: Other (foot wound) Results/Procedures Lab Laboratory Tests 04/21/22 04:00 Patient resulted labs reviewed. Imaging: Reviewed Imaging Report Assessment/Plan Assessment and Plan Assess & Plan/Chief Complaint Acute respiratory failure with hypoxia and hypercapnia Endotracheally intubated Pneumonia Self-extubated last night Supplemental oxygen as needed BiPAP as needed ABG this morning without CO2 retention TeleICU following MAT protocol Continue antibiotics UTI Continue antibiotics JARRET on CKD stage 3a Stable T2DM Levemir Novolog SSI Dysphagia Swallow evaluation unable to be completed NPO HTN AFib Bipolar disorder BPH Continue home meds as appropriate Morbid obesity Clinically significant, no acute management needs DVT ppx: Already receiving therapeutic anticoagulation Hyperkalemia, resolved Critical Care Critically Ill Patient Diagnosis/Problems Diagnosis/Problems (1) Acute on chronic respiratory failure with hypoxia and hypercapnia Status: Acute (2) PNA (pneumonia) Status: Acute (3) UTI (urinary tract infection) Status: Acute (4) Acute kidney injury superimposed on chronic kidney disease Status: Acute (5) T2DM (type 2 diabetes mellitus) Status: Chronic Qualifiers: Diabetes mellitus intermediate insulin use: with termite control servicer use Diabetes mellitus complication status: with skin complications Diabetes mellitus complication detail: with other skin complication Qualified Codes: E11.628 - Type 2 diabetes mellitus with other skin complications; Z79.4 - nursing home (curr ent) use of insulin (6) Atrial fibrillation Status: Chronic (7) Morbid obesity Status: Chronic (8) Seizure disorder Status: Chronic (9) Endotracheally intubated Status: Acute GUALBERTO ROJAS MD Apr 21, 2022 15:28
[2022-04-21] MEDS: DOPamine DRIP 250 ML IV SCH (23:02)
[2022-04-22] MEDS ORDERED: inSUlin ASPART (NovoLOG) 1 UNIT/0.01 ML (CHARGE PER UNIT) ONE (00:29)
[2022-04-22] MEDS: inSUlin ASPART (NovoLOG) 1 UNIT/0.01 ML (CHARGE PER UNIT) SC SCH ×6 (00:32→13:08)
[2022-04-22] MEDS: meTOprolol 5 MG/5 ML (LOPRESSOR) VIAL IV PRN (01:59)
[2022-04-22] MEDS: RT-ALBUTEROL/IPRATROPIUM 3 ML (DUONEB) VIAL INH SCH ×4 (02:39→15:30)
[2022-04-22] MEDS: aCETylcysteine 20% (MUCOMYST) 4 ML SOLN VIAL INH SCH ×3 (03:32→15:30)
[2022-04-22] MEDS: PROPOFOL DRIP (ICU) 100 ML IV SCH ×3 (03:57→14:12)
[2022-04-22 04:17] LABS: BASOPHILS % (AUTO) 0 % (0-10); EOSINOPHILS % (AUTO) 0 % (0-10); HEMATOCRIT 33 % (40-54); HEMOGLOBIN 9.6 g/dL (13.3-17.7); LYMPHOCYTES # (AUTO) 0.5 10^3/uL (1.0-4.0); LYMPHOCYTES % (AUTO) 4 % (12-44); MEAN CORPUSCULAR HEMOGLOBIN 26 pg (25-34); MEAN CORPUSCULAR HGB CONC 29 g/dL (32-36); MEAN CORPUSCULAR VOLUME 89 fL (80-99); MEAN PLATELET VOLUME 12.3 fL (9.0-12.2); MONOCYTES # (AUTO) 0.4 10^3/uL (0.0-1.0); MONOCYTES % (AUTO) 3 % (0-12); NEUTROPHILS # (AUTO) 12.7 10^3/uL (1.8-7.8); NEUTROPHILS % (AUTO) 93 % (42-75); PLATELET COUNT 272 10^3/uL (130-400); WHITE BLOOD COUNT 13.7 10^3/uL (4.3-11.0)
[2022-04-22 04:25] LABS: ALBUMIN 3.2 GM/DL (3.2-4.5); POTASSIUM 4.9 MMOL/L (3.6-5.0)
[2022-04-22 04:26] LABS: CALCIUM 9.3 MG/DL (8.5-10.1)
[2022-04-22 04:28] LABS: TOTAL PROTEIN 7.7 GM/DL (6.4-8.2)
[2022-04-22 04:29] LABS: BILIRUBIN,TOTAL 0.4 MG/DL (0.1-1.0)
[2022-04-22 04:31] LABS: CREATININE SERUM 1.69 MG/DL (0.60-1.30); PHOSPHORUS 3.6 MG/DL (2.3-4.7)
[2022-04-22 04:34] LABS: MAGNESIUM 2.5 MG/DL (1.6-2.4)
[2022-04-22] MEDS: POTASSIUM CL 10MEQ/50ML IVPB 50 ML IV SCH (05:29)
[2022-04-22] MEDS: MAGNESIUM 1 GM/100 ML IVPB 100 ML IV SCH (05:30)
[2022-04-22] MEDS: KCL 20 MEQ TAB (K-DUR) PO SCH (05:30)
[2022-04-22] MEDS: methylPREDNISolone 125 MG (Solu-MEDROL) VIAL IVP SCH (05:31)
[2022-04-22] MEDS: COLLAGENASE 30 GM (SANTYL) TUBE TP SCH (05:37)
[2022-04-22] MEDS: HYPOCHLOROUS ACID/NaCl (VASHE) 250 ML IR SCH (05:37)
[2022-04-22] MEDS ORDERED: RT-ALBUTEROL/IPRATROPIUM 3 ML (DUONEB) VIAL ONE (08:06)
[2022-04-22] MEDS: RT--FLUTICASONE/SALMETEROL 232-14 (AIRDUO RespiCLICK) IH SCH (08:11)
[2022-04-22] MEDS: UMECLIDINIUM BROMIDE (INCRUSE ELLIPTA) 7'S IH SCH (08:12)
--- NOTE | 2022-04-22 08:55 | Diagnostic Imaging Report ---
INDICATION: Shortness of air. COMPARISON: 04/20/2022 FINDINGS: Single frontal radiograph view of the chest was obtained and demonstrates interval extubation and removal of gastric tube. Left upper extremity PICC line is seen with tip in the SVC. Lungs show overall improved aeration, although there is persistent low inspiratory volumes. No large effusion or pneumothorax is seen. Cardiac silhouette remains moderately enlarged. Pulmonary vasculature is prominent as well. Osseous structures are stable. IMPRESSION: 1. Persistent cardiomegaly with pulmonary vascular congestion. 2. Lines and tubes as above. Dictated by: Dictated on workstation # [id number]
[2022-04-22] MEDS ORDERED: methylPREDNISolone 125 MG (Solu-MEDROL) VIAL IVP SCH ×2 (09:00→21:00)
[2022-04-22] MEDS: PANTOPRAZOLE 40 MG (PROTONIX) VIAL IV SCH (09:12)
[2022-04-22] MEDS: cefTRIAXone 2,000 MG/NS 50 ML IVPB IV SCH ×2 (09:12)
[2022-04-22] MEDS: ENOXAPARIN 300 MG/3 ML (LOVENOX) MULTI-DOSE VIAL SQ SCH (09:14)
[2022-04-22] MEDS: VALPROIC ACID SYRUP 250 MG/5 ML UDC NG SCH ×2 (09:14→13:08)
[2022-04-22] MEDS: amLODIPine 10 MG (NORVASC) TAB PO SCH (09:15)
[2022-04-22] MEDS: GABAPENTIN 100 MG (NEURONTIN) CAP PO SCH ×2 (09:15→13:08)
[2022-04-22] MEDS: TAMSULOSIN 0.4 MG (FLOMAX) CAP PO SCH (09:15)
[2022-04-22] MEDS: DULoxetine 30 MG (CYMBALTA) CAP PO SCH (09:15)
[2022-04-22] MEDS: meTOprolol TARTRATE 50 MG (LOPRESSOR) TAB PO SCH (09:15)
[2022-04-22] MEDS: ASPIRIN E.C. 81 MG (ECOTRIN) TAB PO SCH (09:15)
[2022-04-22] MEDS: MUPIROCIN 2% OINT 22 GM (BACTROBAN) TUBE TOP SCH (09:19)
[2022-04-22] MEDS: BRIMONIDINE 0.2% (ALPHAGAN) OPHTH SOLN 5 ML BTL OU SCH (09:19)
--- NOTE | 2022-04-22 09:22 | Speech Therapy Daily Note ---
Speech Daily Progress Note Subjective Date Seen by Provider: Apr 22, 2022 Time Seen by Provider: 08:30 The patient was seated upright in his recliner, awake and alert, upon entrance to his room by the clinician. The patient greeted the clinician and was agreeable to participation in the dysphagia treatment session. The clinician aids the patient with placement of his nasal cannula (the patient was holding the item in his hands), as well as, his SpO2 probe. The patient displays appropriate alertness levels of this date with increased intelligibility. The patient displays great improvement in comparison to the prior date. Objective The patient was provided thin liquid via teaspoon, thin liquid via straw drink, applesauce (four ounces), and saltine crackers. The patient does not display overt s/s of suspected aspiration with any consistency provided. The patient's vocal quality remains clear throughout all P.O. bolus trials. The patient does display prolonged mastication with solid consistencies, requiring the addition of applesauce to soften the cracker and allow for bolus formation. Complete clearance of bolus consistency was achieved at completion of the evaluation from the oral cavity. The patient is able to feed self if the clinician holds the container of applesauce. The patient will required meal set-up assistance and does report increased difficulty with feeding himself the consistencies provided, stating his arms feels "weaker." Recommendations: - Dysphagia three consistency diet with thin liquids, as tolerated. - Fully upright and alert. - Small, single bites and sips. - Meal set-up assistance. - Monitor for s/s of suspected aspiration with P.O. intake. If demonstrated, contact speech pathology. The results and recommendations were provided to the patient and the patient's RN, Isabel, immediately following completion of the assessment. Assessment Assessment Current Status: Good Progress Treatment Plan Continue Plan of Care Speech Short Term Goals Short Term Goals Short Term Goals 1. The patient will tolerate trials of the least restrictive diet consistency without s/s of suspected aspiration. Time Frame-STG: Three Days. Speech Usp Goals Mexican Food Maker Hand Goals 1. The patient will tolerate the least restrictive diet consistency without s/s of suspected aspiration. Time Frame: One Week. Speech-Plan Treatment Plan Speech Therapy Treatment Plan: Discontinue ST Treatment Duration: Apr 28, 2022 Frequency: 3 times per week Estimated Hrs Per Day: .25 hour per day Rehab Potential: Guarded Safety Risks/Education Teaching Recipient: Patient Teaching Methods: Discussion Response to Teaching: Reinforcement Needed Education Topics Provided: Results, Recommendations, Plan of Care Time Speech Therapy Time In: 08:30 Speech Therapy Time Out: 08:45 Total Billed Time: 15 Billed Treatment Time ShortyGEN ELIZABETH ST Apr 22, 2022 09:22
--- NOTE | 2022-04-22 10:00 | Tele-ICU Progress Note ---
Subjective Date Seen by a Provider: Apr 22, 2022 Time Seen by a Provider: 09:59 Subjective/Events-last exam - (Tele-ICU Physician , Progress Note ) Available chart/ vitals / labs / Images reviewed Video assessment done using teleICU camera, rest of exam as per RN Discussed with RN Events overnight : FEBRILE hemodynamically stable Respiratory - bipap I/O =neg 900 Drips: Pressors- no Consultants: Hospital course: (04/17) 57 y M found at medical facility found unresponsive with pulse INTUBATED protect airway possible PNA and UTI, hyperkalemia with reversal 04/18 - elev TGL - added precedex 04/19- 45% +5 . ETT adjusrted 05/21- dieter with precedex , add ativan prn , High airway pressures - added Solumedrol IV , added mucomist neb 04/20, 40% +5 04/20 SELF EXTUBATED during SBT , on Bipap overning 04/21 - did not passed swallow 04/22- 3 L NC A/P Acute resp failure, presumed pulm edema - -Intubated 04/17-04/20 SELF EXTUBATED during SBT , -secreations moderate , thick as per RN report - added mucomist neb 04/20 -added Solumedrol IV 04/20 - wheezing [id number]/13- will keep IV steroids today - will DECREASE IV steroids today - ? TO PO TOMORROW Pulm edema - ECHO 04/18 22- EF 55% , RVSP 40 mmHg - cards follow UTI ( klebsiella ) + GNR in sputum 04/17 - abx - rocephin New leukocytosi 04/22 - possible steroisds related , no new infection sudpected COPD - cont nebs - -added Solumedrol IV 04/20 - wheezing szydcw46/13- will DECREASE IV steroids today - ? TO PO TOMORROW Chronic resp failure - ? OHS + COPD - ? 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 reported by patient on previous admission - depacote 250 tid - ? bipolar tx vs sz - resumed H/o RA - not on immunomodulators Triglycerinemia- RESOLVED - 1300 on propofol on 04/19 - OFF propofol UNresponsive on admission= RESOLVED -CTH - no acute findings - due to CO2 retention Lines : R fem line 04/17 - removed 04/18 , PICC RUE 04/18 , (Central Line Necessity Reviewed) Ott: can not be placed , external catheter applied OG: + Nutrition: Analgesia: Anxiety/ delirium VTE Prophylaxis: ON LOVENOX BID now -- to eliquis when can talke po Stress Ulcer Prophylaxis:ppi Plans in collaboration with bedside consultants and IM MDs. Discussed with RN to reach out if any questions or concerns A total of 31 minutes of critical care time was devoted to this patient today, required to treat and/or prevent further deterioration of critical care condition ( as above ) . Sepsis Event Evaluation Height, Weight, BMI Height: 6'2" Weight: 250lbs. 0.0oz. [id number]; 45.24 BMI Method:Estimated Exam Exam Patient acknowledged, consented, and participated in this virtual visit which was conducted using real time audio/video Vital Signs Date Time Temp Pulse Resp B/P (MAP) Pulse Ox O2 Delivery O2 Flow Rate FiO2 04/22/22 09:00 77 12 144/75 (98) 97 High Flow N/C 2.00 04/22/22 08:08 98 Nasal Cannula 3.00 04/22/22 08:00 36.7 04/22/22 08:00 74 15 157/86 (109) 97 High Flow N/C 2.00 04/22/22 07:00 65 20 154/85 (108) 99 High Flow N/C 2.00 04/22/22 07:00 73 04/22/22 06:00 73 18 162/75 (104) 98 High Flow N/C 2.00 04/22/22 05:00 82 26 169/87 (114) 98 High Flow N/C 2.00 04/22/22 04:00 81 19 180/98 (125) 98 High Flow N/C 2.00 04/22/22 04:00 98 High Flow N/C 2.00 04/22/22 03:57 37.1 04/22/22 03:00 83 18 167/87 (113) 97 High Flow N/C 2.00 04/22/22 02:40 97 High Flow N/C 3.00 04/22/22 02:00 90 15 169/91 (117) 99 High Flow N/C 2.00 04/22/22 01:15 172/94 (120) 04/22/22 01:00 93 12 196/143 (160) 100 High Flow N/C 2.00 04/22/22 00:53 92 04/22/22 00:31 37.1 04/22/22 00:00 89 19 150/78 (102) 98 High Flow N/C 2.00 04/21/22 23:56 98 High Flow N/C 2.00 04/21/22 23:00 98 14 184/90 (121) 98 High Flow N/C 2.00 04/21/22 22:26 97 High Flow N/C 3.00 04/21/22 22:00 96 18 155/134 (141) 99 High Flow N/C 2.00 04/21/22 21:00 97 27 133/92 (106) 98 High Flow N/C 2.00 04/21/22 20:00 99 16 161/74 (103) 98 High Flow N/C 2.00 04/21/22 20:00 98 High Flow N/C 2.00 04/21/22 19:43 37.1 High Flow N/C 2.00 04/21/22 19:00 100 28 162/84 (110) 96 High Flow N/C 3.00 04/21/22 19:00 76 04/21/22 18:26 97 High Flow N/C 3.00 04/21/22 18:00 100 13 116/104 (108) 99 High Flow N/C 3.00 04/21/22 17:18 105 22 164/71 (102) 98 High Flow N/C 3.00 04/21/22 17:00 105 22 164/71 (102) 98 High Flow N/C 3.00 04/21/22 16:00 97 High Flow N/C 4.00 100 10/13/22 16:00 101 23 154/74 (100) 99 High Flow N/C 3.00 04/21/22 15:00 2.00 04/21/22 15:00 98 17 182/101 (128) 96 High Flow N/C 3.00 04/21/22 14:00 95 High Flow N/C 3.00 04/21/22 14:00 93 25 185/84 (117) 97 High Flow N/C 3.00 04/21/22 13:00 107 21 186/86 (119) 99 High Flow N/C 3.00 04/21/22 13:00 107 04/21/22 12:00 85 21 150/96 (114) 96 High Flow N/C 3.00 04/21/22 12:00 97 High Flow N/C 4.00 100 04/21/22 11:59 36.4 04/21/22 11:00 70 13 158/88 (111) 96 High Flow N/C 3.00 04/21/22 10:30 97 High Flow N/C 4.00 04/21/22 10:00 80 29 171/90 (117) 98 High Flow N/C 4.00 I & O 04/22/22 07:00 Intake Total 1000 ml Output Total 1110 ml Balance -110 ml Height & Weight Height: 6'2" Weight: 250lbs. 0.0oz. [id number]; 45.24 BMI Method:Estimated General Appearance: No Apparent Distress, Obese HEENT: PERRL/EOMI Neck: Normal Inspection Respiratory: No Respiratory Distress, Decreased Breath Sounds, Wheezing Cardiovascular: Regular Rate, Rhythm, No Murmur Capillary Refill: Less Than 3 Seconds Gastrointestinal: normal bowel sounds, no organomegaly Extremity: No Inflammation; Pedal Edema, Swelling Neurologic/Psychiatric: Alert (sleepy), Motor Weakness Skin: Other (foot wound) Results Lab Laboratory Tests 04/21/22 04:00 04/22/22 04:05 Assessment/Plan Assessment/Plan 1 JAVIER MISTRY MD Apr 22, 2022 10:00
--- NOTE | 2022-04-22 10:46 | Physical Therapy Daily Note ---
PT Daily Note-Current Subjective Patient more alert on this date. Slightly verbally agitated with ability to be redirected. Pain Section J - Health Conditions 1. Rarely or not at all 2. Occasionally 3. Frequently 4. Almost constantly 8. Unable to answer Pain Effect on Sleep: 8 Pain Interference with Therapy: 8 Pain Interference w/Day-to-Day: 8 Mental Status Patient Orientation: Confused Attachments: Oxygen, Ott Catheter (modified), IV Transfers SCALE: Activities may be completed with or without assistive devices. 5-Fqofayqiot-bywltdz completes the activity by him/herself with no assistance from a helper. 5-Set-up or Clean-up Assistance-helper sets up or cleans up; patient completes activity. [place] assists only prior to or following the activity. 4-Supervision or Touching Assistance-helper provides verbal cues and/or touching/steadying and/or contact guard assistance as patient completes activity. Assistance may be provided throughout the activity or intermittently. 3-Partial/Moderate Assistance-helper does LESS THAN HALF the effort. [place] lifts, holds or supports trunk or limbs, but provides less than half the effort. 2-Substantial/Maximal Assistance-helper does MORE THAN HALF the effort. [place] lifts or holds trunk or limbs and provides more than half the effort. 4-Cbqotbtpm-cfeylp does ALL the effort. Patient does none of the effort to complete the activity. Or, the assistance of 2 or more helpers is required for the patient to complete the activity. If activity was not attempted, code reason: 7-Patient Refused. 9-Not Applicable-not attempted and the patient did not perform the activity before the current illness, exacerbation or injury. 10-Not Attempted due to Environmental Limitations-(lack of equipment, weather restraints, etc.). 88-Not Attempted due to Medical Conditions or Safety Concerns. Roll Left & Right (QC): 3 Sit to Lying (QC): 7 Lying to Sitting/Side of Bed(Q: 7 Exercises Supine Ex: Ankle pumps, Heel Slides, Straight leg raise, Hip abd/add Supine Reps: 12 (AAROM bilaterally) Assessment Patient has difficulty with following simple direction, however, more alert and able to participate. Patient is not safe for OOB activity at this time. RN agrees. PT Short Term Goals Short Term Goals Time Frame: May 07, 2022 Roll Left & Right: 2 Sit to lyin Lying to sitting on side of be: 2 Sit to stand: 2 Chair/hot-zn-fvfkv transfer: 2 PT Halfway Goals Interstate Planner Goals PT Halfway Goals Time Frame: May 21, 2022 Roll Left & Right (QC): 3 Sit to Lying (QC): 3 Lying-Sitting on Side/Bed(QC): 3 Sit to Stand (QC): 3 Chair/Css-fn-Oqtff Xfer(QC): 3 Toilet Transfer (QC): 3 Walk 10 feet (QC): 3 PT Plan Treatment/Plan Treatment Plan: Continue Plan of Care Treatment Plan: Bed Mobility, Education, Functional Activity Pancho, Functional Strength, Gait, Safety, Therapeutic Exercise, Transfers Treatment Duration: May 21, 2022 Frequency: 5 times per week Estimated Hrs Per Day: .25 hour per day Time/GCodes Time In: 745 Time Out: 756 Total Billed Treatment Time: 11 Total Billed Treatment 1 visit EX 11 min SAYRA HI PT Apr 22, 2022 10:46
--- NOTE | 2022-04-22 11:03 | Cardiology Progress Note ---
Subjective Date Seen by Provider: Apr 22, 2022 Time Seen by Provider: 11:01 Subjective/Events-last exam Patient was seen at bedside, laying down comfortably, feeling better. No new complaint Review of Systems General: No Chills, No Night Sweats; Fatigue; No Malaise, No Appetite, No Other HEENT: No Head Aches, No Visual Changes, No Eye Pain, No Ear Pain, No Dysphasi a, No Sinus Congestion, No Post Nasal Drip, No Sore Throat, No Other Pulmonary: Dyspnea; No Cough, No Pleuritic Chest Pain, No Other Cardiovascular: No: Chest Pain, Palpitations, Orthopnea, Paroxysmal Noc. Dyspnea, Edema, Lt Headedness, Other Objective-Cardiology Exam Last Set of Vital Signs Vital Signs 04/21/22 04/22/22 16:00 10:00 Pulse 59 Resp 15 B/P (MAP) 148/71 (96) Pulse Ox 93 O2 Delivery High Flow N/C O2 Flow Rate 2.00 FiO2 100 I&O Intake and Output 04/22/22 00:00 Intake Total 1000 ml Output Total 1900 ml Balance -900 ml Intake Oral 0 ml IV Total 1000 ml Output Urine Total 1900 ml # Urine Diapers 6 General: Alert, Oriented X3, Cooperative HEENT: Atraumatic, PERRLA Neck: Supple Lungs: Clear to Auscultation, Normal Air Movement Heart: Regular Rate, Normal S1, Normal S2 Abdomen: Normal Bowel Sounds Extremities: No Clubbing, No Cyanosis Skin: No Rashes Neuro: Normal Speech Psych/Mental Status: Mental Status NL, Mood NL Results Lab Laboratory Tests 04/22/22 04:05 A/P-Cardiology Admission Diagnosis Acute respiratory failure Acute exacerbation of COPD Paroxysmal atrial fibrillation Diabetes mellitus Assessment/Plan Status post acute respiratory failure Self extubated on 04/20/2022 Improving, continue with rehab and physical therapy Continue to monitor Acute exacerbation of COPD with hypercapnic respiratory failure, better at this time. Continue to monitor Change in mental status, patient was unresponsive when evaluated probably due to hypoxemia with anoxic brain injury. Back to baseline at this time. Continue to monitor Pulmonary edema, given Lasix. Responded well to diuretics Continue to monitor. 2D echo was done on April 18, 2022 showing normal LV size with ejection fraction 50 to 55%, PA pressure 40 mmHg, biatrial dilatation otherwise no significant abnormality Coronary artery disease, cardiac catheterization in 2014 showed mild disease nonobstructive disease. 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 Peripheral angiogram was done on February 06, 2022 showing mild peripheral arterial disease nonobstructive disease. Chronic hyperkalemia. Intolerant to MARY JANE inhibitor and/or ARB Paroxysmal atrial fibrillation, patient was in sinus rhythm on admission, appears to be in and out of atrial fibrillation Maintained on Eliquis 5 mg twice daily History of mild sinus bradycardia, has been tolerating metoprolol 100 mg twice daily. Restart and monitor Hypertension with hypertensive heart disease and diastolic dysfunction Has been maintained on amlodipine 10 mg daily, Cardura and metoprolol 50 mg twice daily. I restarted amlodipine and Cardura, continue on metoprolol Added hydrochlorothiazide Acute on chronic renal failure, chronic kidney disease. Continue to monitor renal function closely Diabetes mellitus, followed and managed by primary care physician History of CVA in 2014, seizure disorder. History of right upper extremity venous thrombosis after central line placement. Bipolar disorder. Hyperlipidemia, intolerant to statin. TIMUR HAWKINS MD Apr 22, 2022 11:03
[2022-04-22] MEDS: fentaNYL DRIP PRE-MIX 250 ML IV SCH (12:00)
[2022-04-22] MEDS: D5W 1000 ML IV SOLUTION 1,000 ML IV SCH (12:27)
[2022-04-22] MEDS ORDERED: CEFD300C3 PO (12:37)
[2022-04-22] MEDS: DOPamine DRIP 250 ML IV SCH (13:30)
--- NOTE | 2022-04-22 20:32 | Discharge Summary ---
Discharge Summary Hospital Course Problems/Dx: (1) Acute on chronic respiratory failure with hypoxia and hypercapnia Status: Acute (2) PNA (pneumonia) Status: Acute (3) UTI (urinary tract infection) Status: Acute (4) Acute kidney injury superimposed on chronic kidney disease Status: Acute (5) T2DM (type 2 diabetes mellitus) Status: Chronic Qualifiers: Qualified Codes: E11.628 - Type 2 diabetes mellitus with other skin complications; Z79.4 - manager terminal (current) use of insulin (6) Atrial fibrillation Status: Chronic (7) Morbid obesity Status: Chronic (8) Seizure disorder Status: Chronic (9) Endotracheally intubated Status: Acute Hospital Course Date of Admission: Apr 17, 2022 at 12:59 Admission Diagnosis : Family Physician/Provider: Stanislav Nunez MD Date of Discharge: 04/22/22 Discharge Diagnosis: [ ] Hospital Course: [ ] Labs and Pending Lab Test: Laboratory Tests 04/21/22 20:54: Glucometer 255H 04/21/22 23:43: Glucometer 303H 04/22/22 04:05: White Blood Count 13.7H, Red Blood Count 3.71L, Hemoglobin 9.6L, Hematocrit 33L, Mean Corpuscular Volume 89, Mean Corpuscular Hemoglobin 26, Mean Corpuscular Hemoglobin Concent 29L, Red Cell Distribution Width 22.0H, Platelet Count 272, Mean Platelet Volume 12.3H, Immature Granulocyte % (Auto) 1, Neutrophils (%) (Auto) 93H, Lymphocytes (%) (Auto) 4L, Monocytes (%) (Auto) 3, Eosinophils (%) (Auto) 0, Basophils (%) (Auto) 0, Neutrophils # (Auto) 12.7H, Lymphocytes # (Auto) 0.5L, Monocytes # (Auto) 0.4, Eosinophils # (Auto) 0.0, Basophils # (Auto) 0.0, Immature Granulocyte # (Auto) 0.1, Sodium Level 151H, Potassium Level 4.9, Chloride Level 118H, Carbon Dioxide Level 22, Anion Gap 11, Blood Urea Nitrogen 31H, Creatinine 1.69H, Estimat Glomerular Filtration Rate 47, BUN/Creatinine Ratio 18, Glucose Level 307H, Calcium Level 9.3, Corrected Calcium 9.9, Phosphorus Level 3.6, Magnesium Level 2.5H, Total Bilirubin 0.4, Aspartate Amino Transf (AST/SGOT) 13, Alanine Aminotransferase (ALT/SGPT) 13, Alkaline Phosphatase 58, Total Protein 7.7, Albumin 3.2 04/22/22 04:10: Glucometer 253H 04/22/22 08:06: Glucometer 248H 04/22/22 11:51: Glucometer 278H Microbiology 04/18/22 Gram Stain - Final, Complete 04/18/22 Wound Culture - Final, Complete Gram Pos Mixed Bacterial Nani Gram Neg Mixed Bacterial Nani 04/17/22 Blood Culture - Preliminary, Resulted No growth 04/17/22 MRSA Screen - Final, Complete 04/17/22 Urine Culture - Final, Complete Klebsiella pneumoniae Home Meds Active Cefdinir 300 Mg Capsule 300 Mg PO BID 5 Days Reported Acidophilus (Lactobacillus Acidophilus) 1 Each Tab.chew 1 Each PO BID Diclofenac Sodium 1 % Gel..gram. 1 Applic TP Q4H PRN Simethicone 125 Mg Capsule 125 Mg PO Q8H PRN Nicotine Patch (Nicotine) 7 Mg/24 Hour Patch.td24 7 Mg TD DAILY Atorvastatin Calcium 80 Mg Tablet 80 Mg PO HS Potassium Chloride 10 Meq Capsule.er 10 Meq PO DAILY Duloxetine HCl 30 Mg Capsule.dr 30 Mg PO DAILY Lantus Solostar (Insulin Glargine,Hum.rec.anlog) 100 Unit/Ml (3 Ml) Insuln.pen 25 Unit SQ BID Gabapentin 100 Mg Capsule 200 Mg PO TID TAKES 2 (100MG) CAPS Humalog Kwikpen (Insulin Lispro) 200 Unit/Ml (3 Ml) Insuln.pen 20 Unit SQ AC Doxazosin Mesylate 2 Mg Tablet 2 Mg PO HS Tramadol HCl 50 Mg Tablet 50 Mg PO Q8HR PRN Symbicort 160-4.5 Mcg Inhaler (Budesonide/Formoterol Fumarate) 160 Mcg-4.5 Mcg/Actuation Hfa.aer.ad 2 Puff IH BID Flintstones Complete Chew Tab (Ped Multivit #43/Iron Fumarate) 18 Mg Iron Tab.chew 18 Mg PO DAILY Jardiance (Empagliflozin) 25 Mg Tablet 25 Mg PO DAILY Ondansetron Odt (Ondansetron) 4 Mg Tab.rapdis 4 Mg PO Q8H PRN Tylenol (Acetaminophen) 325 Mg Tablet 650 Mg PO Q6H PRN Calcium Carbonate 500 Mg Tablet 500 Mg PO Q6H PRN Guaifenesin-Dm 100-10 mg/5 ml (Guaifenesin/Dextromethorphan) 5 Ml Liquid 10 Ml PO Q4H PRN Miralax (Polyethylene Glycol 3350) 17 Gm Powd.pack 17 Gm PO Q12H PRN Meclizine HCl 25 Mg Tablet 25 Mg PO DAILY PRN Docusate Sodium 100 Mg Capsule 100 Mg PO DAILY PRN Loperamide (Loperamide HCl) 2 Mg Tablet 2 Mg PO Q1H PRN MDD 8MG Albuterol Sulfate 2.5 Mg/0.5 Ml Vial.neb 2.5 Mg INH Q8H PRN Metoprolol Tartrate 100 Mg Tablet 100 Mg PO BID HOLD IF PULSE IS LESS THAN 50 AND IF BLOOD PRESSURE LESS THAN 100/50 Melatonin 3 Mg Tablet 3 Mg PO HS Aspirin EC (Aspirin) 81 Mg Tablet.dr 81 Mg PO DAILY Amlodipine Besylate 10 Mg Tablet 10 Mg PO DAILY HOLD FOR PULSE <50 AND BP <100/50 Flomax (Tamsulosin HCl) 0.4 Mg Cap 0.4 Mg PO DAILY Spiriva Respimat 1.25MCG/ACTUATION (Tiotropium [place]) 4 Gm Mist.inhal 2 Puff IH DAILY Furosemide 20 Mg Tablet 60 Mg PO DAILY TAKES 3 (20MG) TABLETS Alphagan P (Brimonidine Tartrate) 5 Ml Drops 1 Drop OU BID Eliquis (Apixaban) 5 Mg Tablet 5 Mg PO BID Aripiprazole 10 Mg Tablet 10 Mg PO DAILY Divalproex Sodium 250 Mg Tablet.dr 250 Mg PO TID Assessment/Pt Instructions See instructions Discharge Planning: >30 minutes discharge planning Discharge Instructions Discharge Diet: Other Diet (dysphagia diet, ground meat) Activity as Tolerated: Yes Discharge Physical Examination Vital Signs Vital Signs Date Time Temp Pulse Resp B/P (MAP) Pulse Ox O2 Delivery O2 Flow Rate FiO2 04/22/22 16:00 99 High Flow N/C 2.00 04/22/22 14:00 52 19 171/80 (110) 04/22/22 12:00 36.6 04/21/22 16:00 100 Allergies: Coded Allergies: penicillin V (Unverified Allergy, Unknown, 10/01/08) erythromycin base (Unverified Adverse Reaction, Mild, VOMITING, 03/18/13) Discharge Summary Date of Admission Apr 17, 2022 at 12:59 Date of Discharge Discharge Date: Apr 22, 2022 Admission Diagnosis Acute hypercapnic respiratory failure Discharge Diagnosis Acute respiratory failure with hypoxia and hypercapnia Endotracheally intubated Pneumonia UTI JARRET on CKD stage 3a T2DM Dysphagia HTN AFib Bipolar disorder BPH Morbid obesity Hyperkalemia (1) Acute on chronic respiratory failure with hypoxia and hypercapnia Status: Acute (2) PNA (pneumonia) Status: Acute (3) UTI (urinary tract infection) Status: Acute (4) Acute kidney injury superimposed on chronic kidney disease Status: Acute (5) T2DM (type 2 diabetes mellitus) Status: Chronic Qualifiers: Qualified Codes: E11.628 - Type 2 diabetes mellitus with other skin com plications; Z79.4 - assisted (current) use of insulin (6) Atrial fibrillation Status: Chronic (7) Morbid obesity Status: Chronic (8) Seizure disorder Status: Chronic (9) Endotracheally intubated Status: Acute GUALBERTO ROJAS MD Apr 22, 2022 20:32
== END 2022-04-22 16:35 | DRG 208 ==
LOC: EDUNIT# 11:12 → ER 11:13 → ICU 12:59
PROVIDERS: ADMIT Family Medicine; ATTEND Internal Medicine
PROC: 5A1945Z Respiratory Ventilation, 24-96 Consecutive Hours (ICD-10-PCS; principal; 2022-04-17)
PROC: 0BH17EZ Insertion of Endotracheal Airway into Trachea, Via Natural or Artificial Opening (ICD-10-PCS; 2022-04-17)
PROC: 02HV33Z Insertion of Infusion Device into Superior Vena Cava, Percutaneous Approach (ICD-10-PCS; 2022-04-17)
PROC: 5A09357 Assistance with Respiratory Ventilation, Less than 24 Consecutive Hours, Continuous Positive Airway Pressure (ICD-10-PCS; 2022-04-20)
PROC: 5A0945A Assistance with Respiratory Ventilation, 24-96 Consecutive Hours, High Flow/Velocity Cannula (ICD-10-PCS; 2022-04-21)
DX: J96.21 Acute and chronic respiratory failure with hypoxia (principal); J18.9 Pneumonia, unspecified organism; J81.0 Acute pulmonary edema; N17.9 Acute kidney failure, unspecified; I13.0 Hypertensive heart and chronic kidney disease with heart failure and stage 1 through stage 4 chronic kidney disease, or unspecified chronic kidney disease; I42.9 Cardiomyopathy, unspecified; E87.29 Other acidosis; J44.0 Chronic obstructive pulmonary disease with (acute) lower respiratory infection; E46 Unspecified protein-calorie malnutrition; N39.0 Urinary tract infection, site not specified; J44.1 Chronic obstructive pulmonary disease with (acute) exacerbation; G93.1 Anoxic brain damage, not elsewhere classified; Z68.42 Body mass index [BMI] 45.0-49.9, adult; E87.5 Hyperkalemia; Z20.822 Contact with and (suspected) exposure to COVID-19; E11.22 Type 2 diabetes mellitus with diabetic chronic kidney disease; F31.9 Bipolar disorder, unspecified; E11.40 Type 2 diabetes mellitus with diabetic neuropathy, unspecified; F41.9 Anxiety disorder, unspecified; I50.9 Heart failure, unspecified; Z86.16 Personal history of COVID-19; K21.9 Gastro-esophageal reflux disease without esophagitis; I25.10 Atherosclerotic heart disease of native coronary artery without angina pectoris; E78.00 Pure hypercholesterolemia, unspecified; J96.22 Acute and chronic respiratory failure with hypercapnia; E11.51 Type 2 diabetes mellitus with diabetic peripheral angiopathy without gangrene; K57.90 Diverticulosis of intestine, part unspecified, without perforation or abscess without bleeding; M79.7 Fibromyalgia; M06.9 Rheumatoid arthritis, unspecified; G89.29 Other chronic pain; M54.9 Dorsalgia, unspecified; H40.9 Unspecified glaucoma; Z79.82 Long term (current) use of aspirin; Z79.4 Long term (current) use of insulin; Z79.899 Other long term (current) drug therapy; G40.909 Epilepsy, unspecified, not intractable, without status epilepticus; I48.0 Paroxysmal atrial fibrillation; N18.31 Chronic kidney disease, stage 3a; E66.01 Morbid (severe) obesity due to excess calories; Z88.0 Allergy status to penicillin; Z88.1 Allergy status to other antibiotic agents; Z86.718 Personal history of other venous thrombosis and embolism; Z79.01 Long term (current) use of anticoagulants; Z89.421 Acquired absence of other right toe(s); E11.621 Type 2 diabetes mellitus with foot ulcer; L97.519 Non-pressure chronic ulcer of other part of right foot with unspecified severity; N40.0 Benign prostatic hyperplasia without lower urinary tract symptoms; D64.9 Anemia, unspecified; D72.829 Elevated white blood cell count, unspecified; B96.1 Klebsiella pneumoniae [K. pneumoniae] as the cause of diseases classified elsewhere; R13.10 Dysphagia, unspecified
CPT/HCPCS: 31500; 36415; 36569; 70450; 71045; 76937; 80048; 80053; 81000; 82805; 82947; 83605; 83735; 83880; 84100; 84145; 84478; 84484; 85007; 85025; 85027; 85610; 87040; 87070; 87077; 87081; 87088; 87186; 87205; 87636; 93005; 93306; 94002; 94003; 94640; 94660; 94799; 99291

== ENCOUNTER 2022-04-27 10:05 | Observation (INO) | payer MEDICARE, MEDICAID ==
[2022-04-27] VITALS (11 sets, daily range): BP systolic 80–169; BP diastolic 41–114
[~2022-04-27] VITALS: Ht 182.9 cm; Wt 145.3 kg
[~2022-04-27 10:05] MED LIST changes: +ATOR80TA76 PO; +AZIT250T12 PO; +DULO30CA49 PO; +INSU100I10 SQ; +LACT1TAB6 PO; +NICO-586 TD; +POTA10CA43 PO; +SIME125C78 PO
[2022-04-27 10:27] LABS: HEMATOCRIT 35 % (40-54); MEAN CORPUSCULAR VOLUME 88 fL (80-99)
[2022-04-27 10:29] LABS: BASOPHILS % (AUTO) 0 % (0-10); EOSINOPHILS # (AUTO) 0.6 10^3/uL (0.0-0.3); EOSINOPHILS % (AUTO) 5 % (0-10); HEMOGLOBIN 10.2 g/dL (13.3-17.7); LYMPHOCYTES # (AUTO) 0.8 10^3/uL (1.0-4.0); LYMPHOCYTES % (AUTO) 7 % (12-44); MEAN CORPUSCULAR HEMOGLOBIN 26 pg (25-34); MEAN CORPUSCULAR HGB CONC 29 g/dL (32-36); MONOCYTES # (AUTO) 0.7 10^3/uL (0.0-1.0); MONOCYTES % (AUTO) 7 % (0-12); NEUTROPHILS # (AUTO) 8.9 10^3/uL (1.8-7.8); NEUTROPHILS % (AUTO) 79 % (42-75); WHITE BLOOD COUNT 11.3 10^3/uL (4.3-11.0)
[2022-04-27 10:29] LABS: ABG OXYGEN SATURATION 94 % (94-100); ABG PCO2 62 MMHG (35-45); ABG PO2 68 MMHG (79-93); ABG TCO2 33.9 MMOL/L (21.0-31.0)
[2022-04-27 10:32] LABS: ALBUMIN 3.3 GM/DL (3.2-4.5); PLATELET COUNT 155 10^3/uL (130-400)
[2022-04-27 10:32] LABS: ABG PH 7.33 (7.37-7.43)
[2022-04-27 10:33] LABS: POTASSIUM 4.7 MMOL/L (3.6-5.0)
[2022-04-27 10:34] LABS: CALCIUM 9.1 MG/DL (8.5-10.1)
[2022-04-27 10:35] LABS: TOTAL PROTEIN 7.4 GM/DL (6.4-8.2)
[2022-04-27 10:37] LABS: BILIRUBIN,TOTAL 0.6 MG/DL (0.1-1.0)
[2022-04-27 10:39] LABS: CREATININE SERUM 1.28 MG/DL (0.60-1.30)
[2022-04-27 10:53] LABS: ANISOCYTOSIS MARKED; BAND NEUTROPHILS 0 %; BASOPHILS % (MANUAL) 1 %; EOSINOPHILS % (MANUAL) 6 %; HYPOCHROMASIA SLIGHT; LYMPHOCYTES % (MANUAL) 7 %; MONOCYTES % (MANUAL) 6 %; NEUTROPHILS % (MANUAL) 80 %; POIKILOCYTOSIS MODERATE; POLYCHROMASIA MODERATE
[2022-04-27 10:54] LABS: ELLIPT/OVALOCYTES SLIGHT; SCHISTOCYTES SLIGHT; TARGET CELLS SLIGHT
[2022-04-27 10:55] LABS: TEAR DROP CELLS SLIGHT
--- NOTE | 2022-04-27 11:00 | Diagnostic Imaging Report ---
INDICATION: Altered mental status, hyperglycemia. FINDINGS: Enlargement of the cardiac silhouette, mild and unchanged. There is vascular congestion but improved. Pulmonary edema has likely decreased if not resolved. No pleural fluid. IMPRESSION: 1. Findings suggest improvements in sequelae of failure or hypervolemia with slight decreased heart size and venous distention. No yassine edema or pleural fluid at follow-up. 2. We do acknowledge at least some of the apparent improvements are likely on a technical basis as this film today is better penetrated than the prior. Dictated by: Dictated on workstation # [id number]
--- NOTE | 2022-04-27 11:36 | Diagnostic Imaging Report ---
EXAMINATION: CT head without contrast. TECHNIQUE: Multiple contiguous axial images were obtained through the brain without the use of intravenous contrast. All CT scans use one or more of the following dose optimizing techniques: automated exposure control, MA and/or KvP adjustment based on patient size and exam type or iterative reconstruction. HISTORY: Altered mental status. Speech difficulties. COMPARISON: 04/17/2022. FINDINGS: No large acute territorial ischemia, mass, or hemorrhage. No midline shift or mass effect. Stable chronic infarct involving the right MCA distribution. Decreased attenuation is seen in the periventricular and subcortical white matter. The ventricles and cortical sulci are prominent. The basilar cisterns are patent and unremarkable. The orbits are normal. Mucosal thickening is seen in the left frontal sinus. Mastoid air cells are clear. No soft tissue abnormality is seen. No osseous lesions or fractures are seen. IMPRESSION: 1. No large acute territorial ischemia, mass, or hemorrhage. 2. Stable chronic infarct in the right MCA distribution. 3. Generalized parenchymal volume loss with chronic microvascular disease. 4. Paranasal sinus disease involving the left frontal sinus. Dictated by: Dictated on workstation # [id number]
--- NOTE | 2022-04-27 11:45 | ED General ---
General Chief Complaint: Neurological Problems Stated Complaint: QUIT TALKING TO STAFF Nursing Triage Note: ARRIVED VIA EMS FROM [facility]. EMS REPORTS ACCORDING TO STAFF HE WAS FINE AT 0845 THEN AT 0900 HE QUIT TALKING TO HIM. UPON ARRIVAL TO ER PT CAN TELL ME HIS NAME AND BIRTHDAY AND IS GRABBING AT THINGS AND TRYING TO EAT THE PULSE OX. EMS REPORTS A BLOOD SUGAR OF 308 WITH KEYTONES. Source of Information: EMS, Other ([facility]) Exam Limitations: Physical Impairments History of Present Illness Date Seen by Provider: Apr 27, 2022 Time Seen by Provider: 10:00 Initial Comments Patient is a 57-year-old male who presents to the emergency room from [facility] chief complaint is that the patient "will not talk". That he seems "lethargic". History is limited secondary to the patient's dysarthria at this time. Vital signs are stable at presentation with a heart rate in the 60s, normal blood pressure. I spoke with and his nurse at [facility] at 1105. She states that he was awake, talking and eating breakfast at 8 AM this morning. She states the aids went back down to talk to him between 9 and 930 and found him "staring" and his responses were very slow. She states he was not acting "like himself" they became concerned for stroke and decided to send him to the emergency department for evaluation. Patient was recently hospitalized for acute on chronic respiratory failure with intubation a week ago. On presentation he is seemingly oriented, he can answer his name and date of . I can understand maybe 1 out of every 10 words that he says. He seems to have a very large tongue and he is not wearing dentures so this may contribute to his difficulty in speech. He has chronic weakness of the left side secondary to previous CVA. In reviewing his medical records he is anticoagulated on Eliquis at 5 mg twice a day. He is following commands, he seems to have good strength in his right upper and right lower extremity. He has no facial droop. His sensation appears to be intact. He does have a coarse cough. Review of systems limited from the patient secondary to speech difficulty. Timing/Duration: 1-3 Hours Allergies and Home Medications Allergies Coded Allergies: penicillin V (Unverified Allergy, Unknown, 10/01/08) erythromycin base (Unverified Adverse Reaction, Mild, VOMITING, 03/18/13) Patient Home Medication List Home Medication List Reviewed: Yes Acetaminophen (Tylenol) 325 Mg Tablet, 650 MG PO Q6H PRN for PAIN-MILD (1-4), (Reported) Entered as Reported by: KALEN ALBERTO on 09/17/211410 Last Action: Reviewed Albuterol Sulfate (Albuterol Sulfate) 2.5 Mg/0.5 Ml Vial.neb, 2.5 MG INH Q8H PRN for SHORTNESS OF BREATH, (Reported) Entered as Reported by: KALEN ALBERTO on 09/17/211410 Last Action: Reviewed Amlodipine Besylate (Amlodipine Besylate) 10 Mg Tablet, 10 MG PO DAILY, (Reported) Entered as Reported by: KALEN ALBERTO on 09/17/211410 Last Action: Reviewed Apixaban (Eliquis) 5 Mg Tablet, 5 MG PO BID, (Reported) Entered as Reported by: JIM GRADY on 12/03/15 100 Last Action: Reviewed Aripiprazole (Aripiprazole) 10 Mg Tablet, 10 MG PO DAILY, (Reported) Entered as Reported by: JIM GRADY on 12/03/15 100 Last Action: Reviewed Aspirin (Aspirin EC) 81 Mg Tablet.dr, 81 MG PO DAILY, (Reported) Entered as Reported by: KALEN ALBERTO on 09/17/211410 Last Action: Reviewed Atorvastatin Calcium (Atorvastatin Calcium) 80 Mg Tablet, 80 MG PO HS, (Reported) Entered as Reported by: SHADY CHONG on 04/18/22 1107 Last Action: Reviewed Brimonidine Tartrate (Alphagan P) 5 Ml Drops, 1 DROP OU BID, (Reported) Entered as Reported by: KERA FELIPE on 02/22/21 141 Last Action: Reviewed Budesonide/Formoterol Fumarate (Symbicort 160-4.5 Mcg Inhaler) 160 Mcg-4.5 Mcg/Actuation Hfa.aer.ad, 2 PUFF IH BID, (Reported) Entered as Reported by: RASTA SANCHES on 11/22/21 1202 Last Action: Reviewed Calcium Carbonate (Calcium Carbonate) 500 Mg Calcium (1250 Mg) Tablet, 500 MG PO Q8H PRN for HEARTBURN, (Reported) Entered as Reported by: SHADY CHONG on 04/28/22 1025 Last Action: Reviewed Diclofenac Sodium (Diclofenac Sodium) 1 % Gel..gram., 1 APPLIC TP Q4H PRN for PAIN-BREAKTHROUGH, (Reported) Entered as Reported by: SHADY CHONG on 04/18/22 110 Last Action: Last Taken Edited Divalproex Sodium (Divalproex Sodium) 250 Mg Tablet.dr, 250 MG PO TID, (Repor marcella) Entered as Reported by: JIM GRADY on 12/03/15 1005 Last Action: Reviewed Docusate Sodium (Docusate Sodium) 100 Mg Capsule, 100 MG PO DAILY PRN for CONSTIPATION-1ST LINE, (Reported) Entered as Reported by: KALEN ALBERTO on 09/17/21 141 Last Action: Reviewed Doxazosin Mesylate (Doxazosin Mesylate) 2 Mg Tablet, 2 MG PO HS, (Reported) Entered as Reported by: SHADY CHONG on 12/01/21 105 Last Action: Reviewed Duloxetine HCl (Duloxetine HCl) 30 Mg Capsule., 30 MG PO DAILY, (Reported) Entered as Reported by: SHADY CHONG on 04/18/221106 Last Action: Reviewed Empagliflozin (Jardiance) 25 Mg Tablet, 25 MG PO DAILY, (Reported) Entered as Reported by: OSMANY QUEZADA on 11/20/21 1544 Last Action: Reviewed Furosemide (Furosemide) 20 Mg Tablet, 60 MG PO DAILY, (Reported) Entered as Reported by: KERA FELIPE on 02/22/21 1415 Last Action: Reviewed Gabapentin (Gabapentin) 100 Mg Capsule, 200 MG PO 0800,1200,2000, (Reported) Entered as Reported by: SHADY CHONG on 12/15/21 1049 Last Action: Reviewed Guaifenesin/Dextromethorphan (Guaifenesin-Dm 100-10 mg/5 ml) 5 Ml Liquid, 10 ML PO Q4H PRN for COUGH, (Reported) Entered as Reported by: KALEN ALBERTO on 09/17/21 141 Last Action: Reviewed Insulin Glargine,Hum.rec.anlog (Lantus Solostar) 100 Unit/Ml (3 Ml) Insuln.pen, 25 UNIT SQ BID, (Reported) Entered as Reported by: SHADY CHONG on 04/18/22 110 Last Action: Reviewed Insulin Lispro (Humalog Kwikpen) 200 Unit/Ml (3 Ml) Insuln.pen, 20 UNIT SQ AC, (Reported) Entered as Reported by: SHADY CHONG on 12/01/21 1051 Last Action: Reviewed Lactobacillus Acidophilus (Acidophilus) 1 Each Tab.chew, 1 EACH PO BID, (Reported) Entered as Reported by: SHADY CHONG on 04/18/22 1112 Last Action: Reviewed Loperamide HCl (Loperamide) 2 Mg Tablet, 2 MG PO Q1H PRN for DIARRHEA, (Reported) Entered as Reported by: KALEN ALBERTO on 09/17/211410 Last Action: Reviewed Meclizine HCl (Meclizine HCl) 25 Mg Tablet, 25 MG PO DAILY PRN for VERTIGO, (Reported) Entered as Reported by: KALEN ALBERTO on 09/17/211410 Last Action: Reviewed Melatonin (Melatonin) 3 Mg Tablet, 3 MG PO HS, (Reported) Entered as Reported by: KALEN ALBERTO on 09/17/211410 Last Action: Reviewed Metoprolol Tartrate (Metoprolol Tartrate) 100 Mg Tablet, 100 MG PO BID, (Reported) Entered as Reported by: KALEN ALBERTO on 09/17/211410 Last Action: Reviewed Nicotine (Nicotine Patch) 7 Mg/24 Hour Patch.td24, 7 MG TD DAILY, (Reported) Entered as Reported by: SHADY CHONG on 04/18/22 110 Last Action: Reviewed Ondansetron (Ondansetron Odt) 4 Mg Tab.rapdis, 4 MG PO Q8H PRN for NAUSEA/VOMITING-1ST LINE, (Reported) Entered as Reported by: KALEN ALBERTO on 09/17/211410 Last Action: Reviewed Ped Multivit #43/Iron Fumarate (Flintstones Complete Chew Tab) 18 Mg Iron Tab.chew, 18 MG PO DAILY, (Reported) Entered as Reported by: RASTA SANCHES on 11/22/21 1155 Last Action: Reviewed Polyethylene Glycol 3350 (Miralax) 17 Gm Powd.pack, 17 GM PO Q12H PRN for CONSTIPATION-2ND LINE, (Reported) Entered as Reported by: KALEN ALBERTO on 09/17/211410 Last Action: Reviewed Potassium Chloride (Potassium Chloride) 10 Meq Capsule.er, 10 MEQ PO DAILY, (Reported) Entered as Reported by: SHADY CHOGN on 04/18/22 110 Last Action: Reviewed Simethicone (Simethicone) 125 Mg Capsule, 125 MG PO Q8H PRN for GAS, (Reported) Entered as Reported by: SHADY CHONG on 04/18/22 110 Last Action: Reviewed Tamsulosin HCl (Flomax) 0.4 Mg Cap, 0.4 MG PO DAILY, (Reported) Entered as Reported by: KERA FELIPE on 02/22/21 141 Last Action: Reviewed Tiotropium [place] (Spiriva Respimat 1.25MCG/ACTUATION) 4 Gm Mist.inhal, 2 PUFF IH DAILY, (Reported) Entered as Reported by: KERA FELIPE on 02/22/21 141 Last Action: Reviewed Tramadol HCl (Tramadol HCl) 50 Mg Tablet, 50 MG PO Q8HR PRN for PAIN-MODERATE (5-7), (Reported) Entered as Reported by: RENETTA GAUTHIER on 11/30/21 1657 Last Action: Reviewed Discontinued Medications Azithromycin (Azithromycin) 250 Mg Tablet, 250 MG PO DAILY, (Reported) Entered as Reported by: SHADY CHONG on 04/18/22 110 Calcium Carbonate (Calcium Carbonate) 500 Mg Calcium (1250 Mg) Tablet, 500 MG PO Q8H PRN for HEARTBURN Discontinued Reason: Duplicate Order Prescribed by: TIMOTHY CROOK on 04/27/22 1722 Last Action: Discontinued Cefdinir (Cefdinir) 300 Mg Capsule, 300 MG PO BID Discontinued Reason: No Longer Taking Prescribed by: GUALBERTO ROJAS on 04/22/22 1237 Last Action: Discontinued Review of Systems Review of Systems Constitutional: see HPI Difficult review of systems due to dysarthria Past Kczyhzz-Lnpmqa-Bztlab Hx Patient Social History Smoking Status: Unknown if Ever Smoked Substance use?: Unable to obtain Alcohol Use?: Unable to obtain Immunizations Up To Date First/Initial COVID19 Vaccinat: 07/16/20 Second COVID19 Vaccination Bryce: 08/05/20 Third COVID19 Vaccination Date: 10/27/21 Seasonal Allergies Seasonal Allergies: No Past Medical History Surgery/Hospitalization HX: DM, HTN, HYPOXIA, BIPOLAR, NEUROPATHY, ANXIETY, CHF, AFIB, CKD, COVID, VERTIGO, GERD Surgeries: Yes Cardiac, Dialysis, Orthopedic, Renal, Vascular Surgery Respiratory: Yes (COMMUNITY ACQUIRED PNEUMONIA) Asthma, Pneumonia Currently Using CPAP: No (PT STATES HE IS SUPPOSED TO BUT HE DOES NOT.) Currently Using BIPAP: No Cardiac: Yes (PAD) Atrial Fibrillation, Cardiomyopathy, Coronary Artery Disease, High Cholesterol, Hypertension, Peripheral Vascular, Valvular Heart Disease Neurological: Yes (BRAIN INJURY CAUSES EMOTIONS TO CHANGE . LEFT SIDE WEAKNESS) Neuropathy Reproductive Disorders: No Sexually Transmitted Disease: No HIV/AIDS: No Kidney Stones, Renal Failure Gastrointestinal: Yes Colitis, Gastroesophageal Reflux, Diverticulosis, Polyps, Hiatal Hernia Musculoskeletal: Yes (WEAKNESS IN LEGS FROM STROKE ) Arthritis, Fibromyalgia, Rheumatoid Arthritis, Chronic Back Pain Endocrine: Yes Diabetes, Insulin dep Glaucoma Loss of Vision: Bilateral Hearing Impairment: Denies Cancer: No Psychosocial: Yes Sleep Difficulties, Bipolar, Depression Integumentary: No Blood Disorders: Yes (ANEMIA, BLOOD CLOTS ) Family Medical History Cardiovascular disease 19 MOTHER G8 BROTHER Colon cancer 19 MOTHER Completed stroke 19 FATHER Dementia 19 FATHER Diabetes mellitus 19 MOTHER FHx: macular degeneration 19 FATHER Myocardial infarction 19 MOTHER Heart Disease, Diabetes, Hypertension Physical Exam Vital Signs Vital Signs - First Documented 04/27/22 10:05 Temp 36.0 Pulse 60 Resp 16 B/P (MAP) 122/66 (84) Pulse Ox 97 O2 Delivery Nasal Cannula O2 Flow Rate 2.00 Capillary Refill : Less Than 3 Seconds Height, Weight, BMI Height: 6'2" Weight: 250lbs. 0.0oz. [id number]; 61.00 BMI Method:Estimated General Appearance: No Apparent Distress, WD/WN, Obese Eyes: Bilateral Eye Normal Inspection, Bilateral Eye PERRL, Bilateral Eye EOMI HEENT: PERRL/EOMI, Moist Mucous Membranes Neck: Normal Inspection Respiratory: No Accessory Muscle Use, No Respiratory Distress, Other (Coarse breath sounds throughout, no wheezes) Cardiovascular: Regular Rate, Rhythm, Normal Peripheral Pulses (2+ radial pulses) Gastrointestinal: Non Tender, Soft Extremity: No Calf Tenderness, Pedal Edema, Other Neurologic/Psychiatric: Alert, Oriented x3 (Oriented to self and date of ), Other (Good strength and sensation in the right upper and lower extremity. No facial droop is appreciated. Extraocular muscles are intact. He does seem to follow commands normally. No visual impairments on gross examination) Skin: Normal Color, Warm/Dry Procedures/Interventions Date of ETT Placement: Apr 17, 2022 Time of ETT Placement: 1130 Progress/Results/Core Measures Suspected Sepsis SIRS Temperature: Pulse: 60 Respiratory Rate: 16 Laboratory Tests 04/27/22 10:10: White Blood Count 11.3H Blood Pressure 122 /66 Mean: 84 Laboratory Tests 04/27/22 10:10: Creatinine 1.28, Platelet Count 155, Total Bilirubin 0.6 04/27/22 10:20: INR Comment 1.2 Results/Orders Lab Results Laboratory Tests Test 04/27/22 10:10 04/27/22 10:20 04/27/22 10:24 04/27/22 10:25 Range/Units White Blood Count 11.3 H 4.3-11.0 10^3/uL Red Blood Count 4.00 L 4.30-5.52 10^6/uL Hemoglobin 10.2 L 13.3-17.7 g/dL Hematocrit 35 L 40-54 % Mean Corpuscular Volume 88 80-99 fL Mean Corpuscular Hemoglobin 26 25-34 pg Mean Corpuscular Hemoglobin Concent 29 L 32-36 g/dL Red Cell Distribution Width 20.4 H 10.0-14.5 % Platelet Count 155 130-400 10^3/uL Mean Platelet Volume 9.0-12.2 fL Immature Granulocyte % (Auto) 2 % Neutrophils (%) (Auto) 79 H 42-75 % Lymphocytes (%) (Auto) 7 L 12-44 % Monocytes (%) (Auto) 7 0-12 % Eosinophils (%) (Auto) 5 0-10 % Basophils (%) (Auto) 0 0-10 % Neutrophils # (Auto) 8.9 H 1.8-7.8 10^3/uL Lymphocytes # (Auto) 0.8 L 1.0-4.0 10^3/uL Monocytes # (Auto) 0.7 0.0-1.0 10^3/uL Eosinophils # (Auto) 0.6 H 0.0-0.3 10^3/uL Basophils # (Auto) 0.0 0.0-0.1 10^3/uL Immature Granulocyte # (Auto) 0.2 H 0.0-0.1 10^3/uL Neutrophils % (Manual) 80 % Lymphocytes % (Manual) 7 % Monocytes % (Manual) 6 % Eosinophils % (Manual) 6 % Basophils % (Manual) 1 % Band Neutrophils 0 % Percent Immature Platelet Fraction 11.0 H 0.0-7.6 % Polychromasia MODERATE Hypochromasia SLIGHT Poikilocytosis MODERATE Anisocytosis MARKED Target Cells SLIGHT Tear Drop Cells SLIGHT Elliptocytes SLIGHT Schistocytes SLIGHT Sodium Level 145 135-145 MMOL/L Potassium Level 4.7 3.6-5.0 MMOL/L Chloride Level 109 H 98-107 MMOL/L Carbon Dioxide Level 25 21-32 MMOL/L Anion Gap 11 5-14 MMOL/L Blood Urea Nitrogen 20 H 7-18 MG/DL Creatinine 1.28 0.60-1.30 MG/DL Estimat Glomerular Filtration Rate 65 BUN/Creatinine Ratio 16 Glucose Level 305 H 70-105 MG/DL Calcium Level 9.1 8.5-10.1 MG/DL Corrected Calcium 9.7 8.5-10.1 MG/DL Total Bilirubin 0.6 0.1-1.0 MG/DL Aspartate Amino Transf (AST/SGOT) 19 5-34 U/L Alanine Aminotransferase (ALT/SGPT) 19 0-55 U/L Alkaline Phosphatase 60 40-136 U/L Total Protein 7.4 6.4-8.2 GM/DL Albumin 3.3 3.2-4.5 GM/DL Prothrombin Time 15.7 H 12.2-14.7 SEC INR Comment 1.2 0.8-1.4 Activated Partial Thromboplast Time 33 24-35 SEC Blood Gas Puncture Site R RADIAL Blood Gas Patient Temperature 36.0 Arterial Blood pH 7.33 *L 7.37-7.43 Arterial Blood Partial Pressure CO2 62 H 35-45 MMHG Arterial Blood Partial Pressure O2 68 L 79-93 MMHG Arterial Blood HCO3 32 H 23-27 MMOL/L Arterial Blood Total CO2 33.9 H 21.0-31.0 MMOL/L Arterial Blood Oxygen Saturation 94 94-100 % Arterial Blood Base Excess 6.0 H -2.5-2.5 MMOL/L Martin Test NA Blood Gas Ventilator Setting NA Blood Gas Inspired Oxygen NA Glucometer 323 H 70-110 MG/DL My Orders Orders - ADILENE POLO MD Accucheck Stat ONCE (04/27/22 10:14) Arterial Blood Gas (04/27/22 10:20) Ed Iv/Invasive Line Start (04/27/22 10:20) Cbc With Automated Diff (04/27/22 10:20) Comprehensive Metabolic Panel (04/27/22 10:20) Chest 1 View, Ap/Pa Only (04/27/22 10:20) Manual Differential (04/27/22 10:10) Ct Head Wo (04/27/22 11:12) Vital Signs/I&O 04/27/22 10:05 Temp 36.0 Pulse 60 Resp 16 B/P (MAP) 122/66 (84) Pulse Ox 97 O2 Delivery Nasal Cannula O2 Flow Rate 2.00 Capillary Refill : Less Than 3 Seconds Blood Pressure Mean: 84 Point of Care Testing Finger Stick Blood Glucose: 323 Progress Note : Time: 12:27 Progress Note I spoke with the patient's oldest sister at approximately 11:58 AM. She states that Elie can talk very clearly in the last time she spoke with him was this past Monday, 3 days ago. She states at that time he did not have his dentures in. She is very concerned for the dysarthria that I have described as a symptom of stroke. I reassured her that his labs and imaging are reassuring at this time. I went in to reexamine IRA and noted that he had vomited and had vomit on his shirt. He states that it was because he coughed. Again I can only understand about 1 out of every 8-10 words. He is quite dysarthric. He is following commands normally. His strength and sensation remain normal in his right upper and lower extremity. His vital signs are still stable. I discussed the case with Dr. Cuevas, we will admit him observation to cardiac stepdown. I will do a bridge orders. He may indeed have had some type of cerebrovascular event however he is chronically anticoagulated on Eliquis. It could be behavioral or medication reaction. We will do serial exams and monitoring to further investigate dysarthria Diagnostic Imaging Diagonstic Imaging: Xray Plain Films/CT/US/NM/MRI: chest Comments [facility], [place] NAME: ELIE KEBEDE [facility] REC#: [id number] PT STATUS: REG ER : 1965 PHYSICIAN: ADILENE POLO MD ADMIT DATE: 04/27/22/ER Signed Date of Exam:04/27/22 CHEST 1 VIEW, AP/PA ONLY INDICATION: Altered mental status, hyperglycemia. FINDINGS: Enlargement of the cardiac silhouette, mild and unchanged. There is vascular congestion but improved. Pulmonary edema has likely decreased if not resolved. No pleural fluid. IMPRESSION: 1. Findings suggest improvements in sequelae of failure or hypervolemia with slight decreased heart size and venous distention. No yassine edema or pleural fluid at follow-up. 2. We do acknowledge at least some of the apparent improvements are likely on a technical basis as this film today is better penetrated than the prior. Dictated by: Dictated on workstation # [id number] Dict: 04/27/22 1053 Trans: 04/27/22 1221 AS6 [id number] Interpreted by: AMOL FERRER Electronically signed by: AMOL FERRER 04/27/22 1221 Diagonstic Imaging: CT Comments [facility], [place] NAME: DELIOELIE P [facility] REC#: [id number] PT STATUS: REG ER : 1965 PHYSICIAN: ADILENE POLO MD ADMIT DATE: 04/27/22/ER Signed Date of Exam:04/27/22 CT HEAD WO EXAMINATION: CT head without contrast. TECHNIQUE: Multiple contiguous axial images were obtained through the brain without the use of intravenous contrast. All CT scans use one or more of the following dose optimizing techniques: automated exposure control, MA and/or KvP adjustment based on patient size and exam type or iterative reconstruction. HISTORY: Altered mental status. Speech difficulties. COMPARISON: 04/17/2022. FINDINGS: No large acute territorial ischemia, mass, or hemorrhage. No midline shift or mass effect. Stable chronic infarct involving the right MCA distribution. Decreased attenuation is seen in the periventricular and subcortical white matter. The ventricles and cortical sulci are prominent. The basilar cisterns are patent and unremarkable. The orbits are normal. Mucosal thickening is seen in the left frontal sinus. Mastoid air cells are clear. No soft tissue abnormality is seen. No osseous lesions or fractures are seen. IMPRESSION: 1. No large acute territorial ischemia, mass, or hemorrhage. 2. Stable chronic infarct in the right MCA distribution. 3. Generalized parenchymal volume loss with chronic microvascular disease. 4. Paranasal sinus disease involving the left frontal sinus. Dictated by: Dictated on workstation # [id number] Dict: 04/27/221131 Trans: 04/27/221137 AS6 [id number] Interpreted by: TYE SANTACRUZ DO Electronically signed by: TYE SANTACRUZ DO 04/27/22 1138 Departure Communication (Admissions) Time/Spoke to Admitting Phy: 12:[address] Cuevas - obs to Step down Impression Primary Impression: Dysarthria Additional Impression: Hyperglycemia Disposition: ADMITTED INPATIENT Condition: Stable Admissions Decision to Admit Reason: Admit from ER (General) Decision to Admit/Date: Apr 27, 2022 Time/Decision to Admit Time: 12:22 Departure-Patient Inst. Referrals: ELIZABETH QUESADA MD (PCP/Family) Primary Care Physician Copy Copies To 1: ELIZABETH QUESADA MD NIH Stroke Scale NIH Stroke Scale NIH : Select: Initial Level of Consciousness: 0=Alert Level of Consciousness-Questio: 0=Answers both month/age LOC Commands: 0=Performs both tasks Gaze: 0=Normal Visual Hathaway: 0=No visual loss Facial Movement (Facial Paresi: 0=Normal symmetrical mnt Motor Function-Arms Right: 0=No drift Motor Function-Arms Left: 3=No effort/gravity Motor Function-Legs Right: 0=No drift Motor Function-Legs Left: 2=Some effort/gravity Limb Ataxia: 0=Absent Sensory: 0=Normal:no loss Best Language: 0=No aphasia Dysarthria: 1=Mild to moderate loss Extinction & Inattention: 0=No abnormality NIH Stroke Scale Score: 5 (pre-existing left sided weakness) ADILENE POLO MD Apr 27, 2022 11:45
[2022-04-27 12:48] LABS: INR 1.2 (0.8-1.4); PROTHROMBIN TIME PATIENT 15.7 SEC (12.2-14.7)
--- NOTE | 2022-04-27 13:19 | History & Physical-Hospitalist ---
History of Present Illness HPI/Chief Complaint Pt is a 57yoM well known to me from recent and multiple admissions who presented to the ER due to dysarthria. He has some difficulty speaking so history is limited. He was able to tell me that he he is feeling ok but not much else what understandable. Reportedly he was in his normal communicative state this morning but when checked on again around 845 he was not speaking. While that is not totally abnormal for patient to have selective mutism when he did speak it was garbled. CT Head was done and was negative but he was admitted for observation and possible MRI. He is able to nod his head that he is agreeable with this plan. He shook his head no regarding and implanted devices for possible MRI. Source: patient Date Seen 04/27/22 Time Seen by a Provider: 13:15 Attending Physician Stanislav Nunez MD PCP Admitting Physician: Attending Physician: Referring Physician Date of Admission Home Medications & Allergies Home Medications Reviewed patient Home Medication Reconciliation performed by pharmacy medication reconciliations detail technician and/or nursing. Patients Allergies have been reviewed. Allergies Allergies Coded Allergies penicillin V (Unverified Allergy, Unknown, 10/01/08) erythromycin base (Unverified Adverse Reaction, Mild, VOMITING, 03/18/13) Past Hrpepoi-Yopduv-Fahedh Hx Patient Social History Smoking Status: Unknown if Ever Smoked Substance use?: Unable to obtain Alcohol Use?: Unable to obtain Immunizations Up To Date First/Initial COVID19 Vaccinat: 07/16/20 Second COVID19 Vaccination Bryce: 08/05/20 Tetanus Booster (TDap): Unknown Hepatitis A: No Hepatitis B: No Date of Pneumonia Vaccine: Mar 20, 2013 Seasonal Allergies Seasonal Allergies: No Current Status Primary Language: Syriac Preferred Spoken Language: Syriac Past Medical History Surgeries: Cardiac, Dialysis, Orthopedic, Renal, Vascular Surgery Asthma, Pneumonia Currently Using CPAP: No (PT STATES HE IS SUPPOSED TO BUT HE DOES NOT.) Currently Using BIPAP: No Atrial Fibrillation, Cardiomyopathy, Coronary Artery Disease, High Cholesterol, Hypertension, Peripheral Vascular, Valvular Heart Disease Neuropathy Sexually Transmitted Disease: No HIV/AIDS: No Kidney Stones, Renal Failure Colitis, Gastroesophageal Reflux, Diverticulosis, Polyps, Hiatal Hernia Arthritis, Fibromyalgia, Rheumatoid Arthritis, Chronic Back Pain Diabetes, Insulin dep Glaucoma Loss of Vision: Bilateral Hearing Impairment: Denies Sleep Difficulties, Bipolar, Depression Blood Disorders: Yes (ANEMIA, BLOOD CLOTS ) Past Medical History 1. Diabetes Mellitus 2. Hypertension 3. Seizure Disorder- history of grand mal per pt. report (no records of neurology evaluation) 4. Bi-polar Disorder 5. Depression 6. Anxiety 7. Peripheral Neuropathy 8. History of Acute Renal Failure requiring hemodialysis 2003. 9. History of superficial RUE venous thrombus due to central line placement 10. History of chronic joint pain. 11. Chronic Peripheral Edema 12. Tobaccoism 13. 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 14. Diastolic dysfunction due to uncontrolled hypertension 15. Mild coronary artery disease per cath 16. Hyperlipidemia 17. Non-compliance with follow up and medication use 18. Hx ischemic Right Frontoparietal Infarct in the Right MCA distribution 06/2015 19. Hx of second right MCA stroke in 11/2015 20. Paroxysmal atrial fibrillation Family Medical History Cardiovascular disease 19 MOTHER G8 BROTHER Colon cancer 19 MOTHER Completed stroke 19 FATHER Dementia 19 FATHER Diabetes mellitus 19 MOTHER FHx: macular degeneration 19 FATHER Myocardial infarction 19 MOTHER Heart Disease, Diabetes, Hypertension Review of Systems Constitutional: see HPI Physical Exam Physical Exam Vital Signs Vital Signs - First Documented 04/27/22 10:05 Temp 36.0 Pulse 60 Resp 16 B/P (MAP) 122/66 (84) Pulse Ox 97 O2 Delivery Nasal Cannula O2 Flow Rate 2.00 Capillary Refill : Less Than 3 Seconds Height, Weight, BMI Height: 6'2" Weight: 250lbs. 0.0oz. 113.007398gu; 61.00 BMI Method:Estimated General Appearance: No Apparent Distress, Chronically ill, Obese HEENT: PERRL/EOMI, Moist Mucous Membranes; No Scleral Icterus (L), No Scleral Icterus (R) Neck: Normal Inspection, Supple Respiratory: Lungs Clear, No Accessory Muscle Use, No Respiratory Distress Cardiovascular: Regular Rate, Rhythm, No JVD, No Murmur Gastrointestinal: Normal Bowel Sounds, Non Tender, Soft Extremity: Normal Capillary Refill, No Calf Tenderness, No Pedal Edema Neurologic/Psychiatric: Alert; No Facial Droop, No Motor Weakness; Other (dysarthria) Results Results/Procedures Labs Laboratory Tests 04/27/22 10:10 Patient resulted labs reviewed. Imaging: Reviewed Imaging Report Imaging [facility], [place] NAME: SERG KEBEDE [facility] REC#: [id number] PT STATUS: REG ER : 1965 PHYSICIAN: ADILENE POLO MD ADMIT DATE: 04/27/22/ER Signed Date of Exam:04/27/22 CHEST 1 VIEW, AP/PA ONLY INDICATION: Altered mental status, hyperglycemia. FINDINGS: Enlargement of the cardiac silhouette, mild and unchanged. There is vascular congestion but improved. Pulmonary edema has likely decreased if not resolved. No pleural fluid. IMPRESSION: 1. Findings suggest improvements in sequelae of failure or hypervolemia with slight decreased heart size and venous distention. No yassine edema or pleural fluid at follow-up. 2. We do acknowledge at least some of the apparent improvements are likely on a technical basis as this film today is better penetrated than the prior. Dictated by: Dictated on workstation # [id number] Dict: 04/27/22 1053 Trans: 04/27/22 1221 AS6 [id number] Interpreted by: AMOL FERRER Electronically signed by: AMOL FERRER 04/27/22 1221 [facility], [place] NAME: SERG KEBEDE [facility] REC#: [id number] PT STATUS: REG ER : 1965 PHYSICIAN: ADILENE POLO MD ADMIT DATE: 04/27/22/ER Signed Date of Exam:04/27/22 CT HEAD WO EXAMINATION: CT head without contrast. TECHNIQUE: Multiple contiguous axial images were obtained through the brain without the use of intravenous contrast. All CT scans use one or more of the following dose optimizing techniques: automated exposure control, MA and/or KvP adjustment based on patient size and exam type or iterative reconstruction. HISTORY: Altered mental status. Speech difficulties. COMPARISON: 04/17/2022. FINDINGS: No large acute territorial ischemia, mass, or hemorrhage. No midline shift or mass effect. Stable chronic infarct involving the right MCA distribution. Decreased attenuation is seen in the periventricular and subcortical white matter. The ventricles and cortical sulci are prominent. The basilar cisterns are patent and unremarkable. The orbits are normal. Mucosal thickening is seen in the left frontal sinus. Mastoid air cells are clear. No soft tissue abnormality is seen. No osseous lesions or fractures are seen. IMPRESSION: 1. No large acute territorial ischemia, mass, or hemorrhage. 2. Stable chronic infarct in the right MCA distribution. 3. Generalized parenchymal volume loss with chronic microvascular disease. 4. Paranasal sinus disease involving the left frontal sinus. 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
[2022-04-27] MEDS ORDERED: CATHETER FLUSH 10 ML SYR IVP PRN (15:15)
[2022-04-27] MEDS ORDERED: RT-ALBUTEROL/IPRATROPIUM 3 ML (DUONEB) VIAL INH PRN (15:45)
[2022-04-27] MEDS ORDERED: CALC500T64 PO (17:22)
[2022-04-27] MEDS ORDERED: [UNRECOGNIZED DRUG - CODE] PO (17:22)
[2022-04-27] MEDS: inSUlin ASPART (NovoLOG) 1 UNIT/0.01 ML (CHARGE PER UNIT) SC SCH ×2 (17:25→21:14)
[2022-04-27] MEDS: RT-ALBUTEROL/IPRATROPIUM 3 ML (DUONEB) VIAL INH SCH ×2 (18:52→23:08)
[2022-04-27] MEDS ORDERED: doxAzosin 2 MG (CARDURA) TAB PO SCH (21:00)
[2022-04-27] MEDS: DIVALPROEX EXT RELEASE 250 MG (DEPAKOTE ER) TAB PO SCH (21:09)
[2022-04-27] MEDS: GABAPENTIN 100 MG (NEURONTIN) CAP PO SCH (21:09)
[2022-04-27] MEDS: APIXABAN 5 MG (ELIQUIS) TABLET PO SCH (21:09)
[2022-04-27] MEDS: meTOprolol TARTRATE 50 MG (LOPRESSOR) TAB PO SCH (21:17)
[2022-04-27] MEDS: CATHETER FLUSH 10 ML SYR IVP SCH (22:00)
[2022-04-28] MEDS: RT-ALBUTEROL/IPRATROPIUM 3 ML (DUONEB) VIAL INH SCH ×3 (02:10→11:15)
[2022-04-28] MEDS: CATHETER FLUSH 10 ML SYR IVP SCH (05:38)
[2022-04-28] MEDS: inSUlin ASPART (NovoLOG) 1 UNIT/0.01 ML (CHARGE PER UNIT) SC SCH ×2 (06:35→13:26)
[2022-04-28] MEDS ORDERED: FUROSEMIDE 40 MG (LASIX) TAB PO SCH (07:00)
[2022-04-28 08:00] VITALS: BP 150/88
[2022-04-28] MEDS ORDERED: NICOTINE 14 MG (NICODERM) PATCH TD SCH (09:00)
[2022-04-28] MEDS ORDERED: amLODIPine 10 MG (NORVASC) TAB PO SCH (09:00)
[2022-04-28] MEDS ORDERED: ASPIRIN 81 MG CHEW (CHILDREN'S ASA) PO SCH (09:00)
[2022-04-28] MEDS: DIVALPROEX EXT RELEASE 250 MG (DEPAKOTE ER) TAB PO SCH ×2 (09:44→13:26)
[2022-04-28] MEDS: GABAPENTIN 100 MG (NEURONTIN) CAP PO SCH ×2 (09:44→13:26)
[2022-04-28] MEDS: meTOprolol TARTRATE 50 MG (LOPRESSOR) TAB PO SCH (09:44)
[2022-04-28] MEDS: APIXABAN 5 MG (ELIQUIS) TABLET PO SCH (09:44)
--- NOTE | 2022-04-28 10:05 | Discharge Inst-Simple/Standard ---
Discharge Inst-Standard Patient Instructions/Follow Up Plan of Care/Instructions/FU: Please continue to take your medications as written. Please follow up with your primary care doctor to follow up this hospital stay. Activity as Tolerated: Yes Discharge Diet: Cardiac Diet Return to The Hospital For: Chest pain, shortness of breath, fever, weakness, if you feel you are getting worse. ANA MCGUIRE MD Apr 28, 2022 10:05
[2022-04-28] MEDS ORDERED: CALC500T64 PO (10:25)
--- NOTE | 2022-04-28 10:47 | Physical Therapy Evaluation ---
PT Evaluation-General Medical Diagnosis Admission Date Apr 27, 2022 at 12:31 Medical Diagnosis: dysarthria/hyperglycemia/respiratory failure Onset Date: Apr 27, 2022 Therapy Diagnosis Therapy Diagnosis: debility Height/Weight Height (Feet): 6 Height (Inches): 2 Weight (Pounds): 250 Weight (Ounces): 0.0 Precautions Precautions/Isolations: Fall Prevention, Standard Precautions Referral Physician: Mason Reason for Referral: Evaluation/Treatment Medical History Pertinent Medical History: Atrial Fib, Arthritis, CAD, CVA, DM, Diverticulitis, GERD, Heart Failure, HTN, [place], Neuropathy, PVD, Renal Insufficiency, Rheumatoid Arthritis, Smoking Additional Medical History bipolar Current History EMS from [place] secondary to lethargy/"will not talk" Reviewed History: Yes Social History Home: Retirement Prior Prior Level of Function SCALE: Activities may be completed with or without assistive devices. 7-Ebtenodcps-jcbgtpi completes the activity by him/herself with no assistance from a helper. 5-Set-up or Clean-up Assistance-helper sets up or cleans up; patient completes activity. [place] assists only prior to or following the activity. 4-Supervision or Touching Assistance-helper provides verbal cues and/or touching/steadying and/or contact guard assistance as patient completes activity. Assistance may be provided throughout the activity or intermittently. 3-Partial/Moderate Assistance-helper does LESS THAN HALF the effort. [place] lifts, holds or supports trunk or limbs, but provides less than half the effort. 2-Substantial/Maximal Assistance-helper does MORE THAN HALF the effort. [place] lifts or holds trunk or limbs and provides more than half the effort. 6-Ndykyhtqh-buhhvw does ALL the effort. Patient does none of the effort to complete the activity. Or, the assistance of 2 or more helpers is required for the patient to complete the activity. If activity was not attempted, code reason: 7-Patient Refused. 9-Not Applicable-not attempted and the patient did not perform the activity before the current illness, exacerbation or injury. 10-Not Attempted due to Environmental Limitations-(lack of equipment, weather restraints, etc.). 88-Not Attempted due to Medical Conditions or Safety Concerns. Bed Mobility: 1 Transfers (B,C,W/C): 1 ([place]) Gait: 9 Stairs: 9 Indoor Mobility (Ambulation): Not Applicalbe Prior Devices Use: Manual wheelchair, Mechanical lift PT Evaluation-Current Subjective Patient is talking and getting agitated. Requires redirection to assist with assessment. Patient begins to act like a cartoon character. Objective Patient Orientation: Confused Attachments: Oxygen ROM/Strength ROM Lower Extremities bilateral LE WFL Strength Lower Extremities NT due to patient inability to follow simple direction Integumentary/Posture Bowel Incontinence: Yes Bladder Incontinence: Yes Neuromuscular (Tone, Coordination, Reflexes) grossly intact bilateral UE's Sensory Vision: Functional Hearing: Functional Transfers Roll Left to Right (QC): 1 (x 3) Assessment/Needs Patient is currently at dependent PLOF with all gross motor skills. No skilled PT indicated. Rehab Potential: Poor PT Plan Treatment/Plan Treatment Plan: Discontinue PT Treatment Duration: Apr 28, 2022 Frequency: 1 time per week Estimated Hrs Per Day: .25 hour per day Time/GCodes Time In: 745 Time Out: 801 Total Billed Treatment Time: 16 Total Billed Treatment 1 visit EVModC 16 min SAYRA HI PT Apr 28, 2022 10:47
--- NOTE | 2022-04-28 11:43 | Discharge Summary ---
Diagnosis/Chief Complaint Date of Admission Apr 27, 2022 at 12:31 Date of Discharge Discharge Date: Apr 28, 2022 Admission Diagnosis dysarthria Primary Care Stanislav Nunez MD Discharge Summary Discharge Physical Exam Allergies: Coded Allergies: penicillin V (Unverified Allergy, Unknown, 10/01/08) erythromycin base (Unverified Adverse Reaction, Mild, VOMITING, 03/18/13) Vitals & I&Os Vital Signs Date Time Temp Pulse Resp B/P (MAP) Pulse Ox O2 Delivery O2 Flow Rate FiO2 04/28/22 13:43 04/28/22 11:50 36.1 60 16 99 Nasal Cannula 3.00 General Appearance: No Apparent Distress Respiratory: Lungs Clear, No Respiratory Distress Cardiovascular: Regular Rate, Rhythm, No Murmur Neurologic/Psychiatric: Alert, Oriented x3 Hospital Course Patient was admitted to the hospital secondary to TIA. He presented to the emergency department with dysarthria. CT head was done and was negative for acute findings just showing stable chronic infarct and generalized volume loss. An MRI was ordered but due to his weight this was unable to be obtained. His symptoms resolved and he was back to his baseline speech. We discussed that this was likely a TIA and he states he has had many of these. He was able to be discharged home in stable and improved condition to follow-up with his primary care physician. Labs (last 24 hrs) Laboratory Tests 04/27/22 16:56: Glucometer 215H 04/27/22 20:40: Glucometer 212H 04/28/22 06:01: Glucometer 165H 04/28/22 10:51: Glucometer 190H Patient resulted labs reviewed. Pending Labs Laboratory Tests 04/28/22 10:51: Glucometer 190 Imaging: Reviewed Imaging Report Discussion & Recommendations Discharge Planning: >30 minutes discharge planning Discharge Home Medications: Active Scripts Active Reported Calcium Carbonate 500 Mg Calcium (1250 Mg) Tablet 500 Mg PO Q8H PRN Acidophilus (Lactobacillus Acidophilus) 1 Each Tab.chew 1 Each PO BID Diclofenac Sodium 1 % Gel..gram. 1 Applic TP Q4H PRN Simethicone 125 Mg Capsule 125 Mg PO Q8H PRN Nicotine Patch (Nicotine) 7 Mg/24 Hour Patch.td24 7 Mg TD DAILY Atorvastatin Calcium 80 Mg Tablet 80 Mg PO HS Potassium Chloride 10 Meq Capsule.er 10 Meq PO DAILY Duloxetine HCl 30 Mg Capsule.dr 30 Mg PO DAILY Lantus Solostar (Insulin Glargine,Hum.rec.anlog) 100 Unit/Ml (3 Ml) Insuln.pen 25 Unit SQ BID Gabapentin 100 Mg Capsule 200 Mg PO 0800,1200,2000 TAKES 2 (100MG) CAPS Humalog Kwikpen (Insulin Lispro) 200 Unit/Ml (3 Ml) Insuln.pen 20 Unit SQ AC Doxazosin Mesylate 2 Mg Tablet 2 Mg PO HS Tramadol HCl 50 Mg Tablet 50 Mg PO Q8HR PRN Symbicort 160-4.5 Mcg Inhaler (Budesonide/Formoterol Fumarate) 160 Mcg-4.5 Mcg/Actuation Hfa.aer.ad 2 Puff IH BID Flintstones Complete Chew Tab (Ped Multivit #43/Iron Fumarate) 18 Mg Iron Tab.chew 18 Mg PO DAILY Jardiance (Empagliflozin) 25 Mg Tablet 25 Mg PO DAILY Ondansetron Odt (Ondansetron) 4 Mg Tab.rapdis 4 Mg PO Q8H PRN Tylenol (Acetaminophen) 325 Mg Tablet 650 Mg PO Q6H PRN Guaifenesin-Dm 100-10 mg/5 ml (Guaifenesin/Dextromethorphan) 5 Ml Liquid 10 Ml PO Q4H PRN Miralax (Polyethylene Glycol 3350) 17 Gm Powd.pack 17 Gm PO Q12H PRN Meclizine HCl 25 Mg Tablet 25 Mg PO DAILY PRN Docusate Sodium 100 Mg Capsule 100 Mg PO DAILY PRN Loperamide (Loperamide HCl) 2 Mg Tablet 2 Mg PO Q1H PRN MDD 8MG Albuterol Sulfate 2.5 Mg/0.5 Ml Vial.neb 2.5 Mg INH Q8H PRN Metoprolol Tartrate 100 Mg Tablet 100 Mg PO BID HOLD IF PULSE IS LESS THAN 50 AND IF BLOOD PRESSURE LESS THAN 100/50 Melatonin 3 Mg Tablet 3 Mg PO HS Aspirin EC (Aspirin) 81 Mg Tablet.dr 81 Mg PO DAILY Amlodipine Besylate 10 Mg Tablet 10 Mg PO DAILY HOLD FOR PULSE <50 AND BP <100/50 Flomax (Tamsulosin HCl) 0.4 Mg Cap 0.4 Mg PO DAILY Spiriva Respimat 1.25MCG/ACTUATION (Tiotropium [place]) 4 Gm Mist.inhal 2 Puff IH DAILY Furosemide 20 Mg Tablet 60 Mg PO DAILY TAKES 3 (20MG) TABLETS Alphagan P (Brimonidine Tartrate) 5 Ml Drops 1 Drop OU BID Eliquis (Apixaban) 5 Mg Tablet 5 Mg PO BID Aripiprazole 10 Mg Tablet 10 Mg PO DAILY Divalproex Sodium 250 Mg Tablet.dr 250 Mg PO TID Instructions to patient/family Please see electronic discharge instructions given to patient. ANA MCGUIRE MD Apr 28, 2022 11:43
[2022-04-28 11:50] VITALS: BP 147/70
[2022-04-28] MEDS ORDERED: HYPOCHLOROUS ACID/NaCl (VASHE) 250 ML IR SCH (15:00)
[2022-04-28] MEDS ORDERED: COLLAGENASE 30 GM (SANTYL) TUBE TP SCH (15:00)
[2022-04-29] MEDS ORDERED: NICOTINE PATCH REMOVAL TP SCH (08:59)
== END 2022-04-28 14:40 ==
LOC: EDUNIT# 10:05 → ER 10:06 → CSD 12:31
PROVIDERS: ADMIT Family Medicine; ATTEND Family Medicine
DX: R47.1 Dysarthria and anarthria (principal); E11.22 Type 2 diabetes mellitus with diabetic chronic kidney disease; I12.9 Hypertensive chronic kidney disease with stage 1 through stage 4 chronic kidney disease, or unspecified chronic kidney disease; N18.31 Chronic kidney disease, stage 3a; I48.91 Unspecified atrial fibrillation; F31.9 Bipolar disorder, unspecified; N40.0 Benign prostatic hyperplasia without lower urinary tract symptoms; E66.01 Morbid (severe) obesity due to excess calories; Z68.41 Body mass index [BMI] 40.0-44.9, adult; Z79.01 Long term (current) use of anticoagulants; Z79.899 Other long term (current) drug therapy; Z28.311 Partially vaccinated for COVID-19
CPT/HCPCS: 70450; 71045; 80053; 82805; 82947 ×2; 85007; 85027; 85610; 85730; 94640 ×2; 94660 ×2; 97162; 99285; G0378; 36415

== ENCOUNTER → 2022-06-01 | Outpatient (CLI) | payer MEDICARE, MEDICAID ==
[~2022-06-01] MED LIST changes: +[UNRECOGNIZED DRUG - CODE] PO
== END ==
LOC: WOUNDCARE 08:57
PROVIDERS: ATTEND Family Medicine
DX: E11.621 Type 2 diabetes mellitus with foot ulcer (principal); L97.512 Non-pressure chronic ulcer of other part of right foot with fat layer exposed; T87.89 Other complications of amputation stump; E11.65 Type 2 diabetes mellitus with hyperglycemia; E11.40 Type 2 diabetes mellitus with diabetic neuropathy, unspecified; E66.01 Morbid (severe) obesity due to excess calories; M86.171 Other acute osteomyelitis, right ankle and foot; M62.81 Muscle weakness (generalized); I70.235 Atherosclerosis of native arteries of right leg with ulceration of other part of foot; E11.22 Type 2 diabetes mellitus with diabetic chronic kidney disease; N18.32 Chronic kidney disease, stage 3b; I89.0 Lymphedema, not elsewhere classified; D63.1 Anemia in chronic kidney disease; F17.218 Nicotine dependence, cigarettes, with other nicotine-induced disorders
CPT/HCPCS: 11042; 87070; 87205; A6197; G0463; 87077

== ENCOUNTER → 2022-06-07 | Outpatient (CLI) | payer MEDICARE, MEDICAID | LOC: WOUNDCARE 08:25 | PROVIDERS: ATTEND Family Medicine | DX: I96 Gangrene, not elsewhere classified (principal); L97.512 Non-pressure chronic ulcer of other part of right foot with fat layer exposed; T87.89 Other complications of amputation stump; E11.621 Type 2 diabetes mellitus with foot ulcer; E11.65 Type 2 diabetes mellitus with hyperglycemia; E11.40 Type 2 diabetes mellitus with diabetic neuropathy, unspecified; M86.171 Other acute osteomyelitis, right ankle and foot; M62.81 Muscle weakness (generalized); I70.235 Atherosclerosis of native arteries of right leg with ulceration of other part of foot; N18.32 Chronic kidney disease, stage 3b; I89.0 Lymphedema, not elsewhere classified; D63.1 Anemia in chronic kidney disease; F17.218 Nicotine dependence, cigarettes, with other nicotine-induced disorders; E66.01 Morbid (severe) obesity due to excess calories; E55.9 Vitamin D deficiency, unspecified; Z68.42 Body mass index [BMI] 45.0-49.9, adult | CPT/HCPCS: 11042; G0463 ==

== ENCOUNTER → 2022-06-14 | Outpatient (CLI) | payer MEDICARE, MEDICAID | LOC: WOUNDCARE 08:28 | PROVIDERS: ATTEND Family Medicine | DX: I96 Gangrene, not elsewhere classified (principal); L97.512 Non-pressure chronic ulcer of other part of right foot with fat layer exposed; T87.89 Other complications of amputation stump; E11.65 Type 2 diabetes mellitus with hyperglycemia; E11.40 Type 2 diabetes mellitus with diabetic neuropathy, unspecified; E11.621 Type 2 diabetes mellitus with foot ulcer; E66.01 Morbid (severe) obesity due to excess calories; M86.171 Other acute osteomyelitis, right ankle and foot; M62.81 Muscle weakness (generalized); I70.235 Atherosclerosis of native arteries of right leg with ulceration of other part of foot; N18.32 Chronic kidney disease, stage 3b; I89.0 Lymphedema, not elsewhere classified; D63.1 Anemia in chronic kidney disease; F17.218 Nicotine dependence, cigarettes, with other nicotine-induced disorders; E55.9 Vitamin D deficiency, unspecified; Z68.42 Body mass index [BMI] 45.0-49.9, adult | CPT/HCPCS: 11042; G0463 ==

== ENCOUNTER 2022-06-18 08:42 | Emergency (ER) | payer MEDICARE, MEDICAID ==
--- NOTE | 2022-06-18 09:29 | ED Respiratory ---
General Chief Complaint: Respiratory Problems Stated Complaint: SOA/RETAINING FLUID Nursing Triage Note: PT TO RM 6 BY WC WITH C/O SOB STARTING LAST NIGHT AND SWELLING BILAT LEGS Source: patient Exam Limitations: no limitations History of Present Illness Date Seen by Provider: Jun 18, 2022 Time Seen by Provider: 09:17 Initial Comments Patient is a 57-year-old male who [facility] emergency [facility] with a chief complaint of increasing shortness of breath since last night and this morning and increased swelling to his bilateral lower extr emities. Patient states that nothing really hurts he just feels short of breath. He does wear oxygen especially at night to sleep and on an as needed basis during the day. He denies productive cough. No fevers or chills. Normal urine output. No recent trauma or infections that he is aware of. He is compliant with his daily medications. He does take Lasix. Patient admits to me that he ate some Ramen noodles yesterday which has a high salt load. Suspect that this has caused him to retain some fluid. Clinically he is 94 to 97% on his normal oxygen per nasal cannula. No increased work of breathing. No rales in his lungs. Awake and alert answering questions appropriately. No change in mentation. Blood pressure is good, pulses good. All other review of systems reviewed and negative except as stated Timing/Duration: this morning Severity: moderate Prior Episodes/Possible Cause: frequent episodes Modifying Factors: Improves With Albuterol Inhaler Associated Symptoms: shortness of breath, other (swelling) Allergies and Home Medications Allergies Coded Allergies: penicillin V (Unverified Allergy, Unknown, 10/01/08) erythromycin base (Unverified Adverse Reaction, Mild, VOMITING, 03/18/13) Patient Home Medication List Home Medication List Reviewed: Yes Acetaminophen (Tylenol) 325 Mg Tablet, 650 MG PO Q6H PRN for PAIN-MILD (1-4), (Reported) Entered as Reported by: KALEN ALBERTO on 09/17/21 141 Albuterol Sulfate (Albuterol Sulfate) 2.5 Mg/0.5 Ml Vial.neb, 2.5 MG INH Q8H PRN for SHORTNESS OF BREATH, (Reported) Entered as Reported by: KALEN ALBERTO on 09/17/21 141 Amlodipine Besylate (Amlodipine Besylate) 10 Mg Tablet, 10 MG PO DAILY, (Reported) Entered as Reported by: KALEN ALBERTO on 09/17/21 1411 Apixaban (Eliquis) 5 Mg Tablet, 5 MG PO BID, (Reported) Entered as Reported by: JIM GRADY on 12/03/15 1005 Aripiprazole (Aripiprazole) 10 Mg Tablet, 10 MG PO DAILY, (Reported) Entered as Reported by: JIM GRADY on 12/03/15 1005 Aspirin (Aspirin EC) 81 Mg Tablet.dr, 81 MG PO DAILY, (Reported) Entered as Reported by: KALEN ALBERTO on 09/17/21 141 Atorvastatin Calcium (Atorvastatin Calcium) 80 Mg Tablet, 80 MG PO HS, (Reported) Entered as Reported by: SHADY CHOGN on 04/18/22 1107 Brimonidine Tartrate (Alphagan P) 5 Ml Drops, 1 DROP OU BID, (Reported) Entered as Reported by: KERA FELIPE on 02/22/21 141 Budesonide/Formoterol Fumarate (Symbicort 160-4.5 Mcg Inhaler) 160 Mcg-4.5 M cg/Actuation Hfa.aer.ad, 2 PUFF IH BID, (Reported) Entered as Reported by: RASTA SANCHES on 11/22/21 1202 Calcium Carbonate (Calcium Carbonate) 500 Mg Calcium (1250 Mg) Tablet, 500 MG PO Q8H PRN for HEARTBURN, (Reported) Entered as Reported by: SHADY CHONG on 04/28/22 1025 Diclofenac Sodium (Diclofenac Sodium) 1 % Gel..gram., 1 APPLIC TP Q4H PRN for PAIN-BREAKTHROUGH, (Reported) Entered as Reported by: SHADY CHONG on 04/18/22 1107 Divalproex Sodium (Divalproex Sodium) 250 Mg Tablet.dr, 250 MG PO TID, (Reported) Entered as Reported by: JIM GRADY on 12/03/15 1005 Docusate Sodium (Docusate Sodium) 100 Mg Capsule, 100 MG PO DAILY PRN for CONSTIPATION-1ST LINE, (Reported) Entered as Reported by: KALEN ALBERTO on 09/17/21 1411 Doxazosin Mesylate (Doxazosin Mesylate) 2 Mg Tablet, 2 MG PO HS, (Reported) Entered as Reported by: SHADY CHONG on 12/01/21 1051 Duloxetine HCl (Duloxetine HCl) 30 Mg Capsule.dr, 30 MG PO DAILY, (Reported) Entered as Reported by: SHADY CHONG on 04/18/22 1107 Empagliflozin (Jardiance) 25 Mg Tablet, 25 MG PO DAILY, (Reported) Entered as Reported by: OSMANY QUEZADA on 11/20/21 1544 Furosemide (Furosemide) 20 Mg Tablet, 60 MG PO DAILY, (Reported) Entered as Reported by: KERA FELIPE on 02/22/21 1415 Gabapentin (Gabapentin) 100 Mg Capsule, 200 MG PO 0800,1200,2000, (Reported) Entered as Reported by: SHADY CHONG on 12/15/21 1049 Guaifenesin/Dextromethorphan (Guaifenesin-Dm 100-10 mg/5 ml) 5 Ml Liquid, 10 ML PO Q4H PRN for COUGH, (Reported) Entered as Reported by: KALEN ALBERTO on 09/17/21 141 Insulin Glargine,Hum.rec.anlog (Lantus Solostar) 100 Unit/Ml (3 Ml) Insuln.pen, 25 UNIT SQ BID, (Reported) Entered as Reported by: SHADY CHONG on 04/18/22 110 Insulin Lispro (Humalog Kwikpen) 200 Unit/Ml (3 Ml) Insuln.pen, 20 UNIT SQ AC, (Reported) Entered as Reported by: SHADY CHONG on 12/01/21 1051 Lactobacillus Acidophilus (Acidophilus) 1 Each Tab.chew, 1 EACH PO BID, (Reported) Entered as Reported by: SHADY CHONG on 04/18/22 1112 Loperamide HCl (Loperamide) 2 Mg Tablet, 2 MG PO Q1H PRN for DIARRHEA, (Reported) Entered as Reported by: KALEN ALBERTO on 09/17/21 141 Meclizine HCl (Meclizine HCl) 25 Mg Tablet, 25 MG PO DAILY PRN for VERTIGO, (Reported) Entered as Reported by: KALEN ALBERTO on 09/17/21 141 Melatonin (Melatonin) 3 Mg Tablet, 3 MG PO HS, (Reported) Entered as Reported by: KALEN ALBERTO on 09/17/21 141 Metoprolol Tartrate (Metoprolol Tartrate) 100 Mg Tablet, 100 MG PO BID, (Reported) Entered as Reported by: KALEN ALBERTO on 09/17/21 141 Nicotine (Nicotine Patch) 7 Mg/24 Hour Patch.td24, 7 MG TD DAILY, (Reported) Entered as Reported by: SHADY CHONG on 04/18/22 110 Ondansetron (Ondansetron Odt) 4 Mg Tab.rapdis, 4 MG PO Q8H PRN for NAUSEA/VOMITING-1ST LINE, (Reported) Entered as Reported by: KALEN ALBERTO on 09/17/21 141 Ped Multivit #43/Iron Fumarate (Flintstones Complete Chew Tab) 18 Mg Iron Tab.chew, 18 MG PO DAILY, (Reported) Entered as Reported by: RASTA SANCHES on 11/22/21 115 Polyethylene Glycol 3350 (Miralax) 17 Gm Powd.pack, 17 GM PO Q12H PRN for CONSTIPATION-2ND LINE, (Reported) Entered as Reported by: KALEN ALBERTO on 09/17/21 141 Potassium Chloride (Potassium Chloride) 10 Meq Capsule.er, 10 MEQ PO DAILY, (Reported) Entered as Reported by: SHADY CHONG on 04/18/22 110 Simethicone (Simethicone) 125 Mg Capsule, 125 MG PO Q8H PRN for GAS, (Reported) Entered as Reported by: SHADY CHONG on 04/18/22 110 Tamsulosin HCl (Flomax) 0.4 Mg Cap, 0.4 MG PO DAILY, (Reported) Entered as Reported by: KERA FELIPE on 02/22/21 141 Tiotropium [place] (Spiriva Respimat 1.25MCG/ACTUATION) 4 Gm Mist.inhal, 2 PUFF IH DAILY, (Reported) Entered as Reported by: KERA FELIPE on 02/22/21 141 Tramadol HCl (Tramadol HCl) 50 Mg Tablet, 50 MG PO Q8HR PRN for PAIN-MODERATE (5-7), (Reported) Entered as Reported by: RENETTA GAUTHIER on 11/30/21 165 Review of Systems Review of Systems Constitutional: see HPI EENTM: no symptoms reported Respiratory: short of breath Cardiovascular: edema Gastrointestinal: no symptoms reported Genitourinary: no symptoms reported Musculoskeletal: no symptoms reported Skin: no symptoms reported All Other Systems Reviewed Negative Unless Noted: Yes Past Ljzwvvm-Ukoxcm-Gfjozs Hx Patient Social History Tobacco Use?: Yes Smoking Status: Current Everyday Smoker Use of E-Cig and/or Vaping dev: No Substance use?: No Alcohol Use?: No Pt feels they are or have been: No Immunizations Up To Date Influenza Vaccine Up-to-Date: No; Not Current First/Initial COVID19 Vaccinat: 07/16/20 Second COVID19 Vaccination Bryce: 08/05/20 Third COVID19 Vaccination Date: 10/27/21 Seasonal Allergies Seasonal Allergies: No Past Medical History Surgery/Hospitalization HX: DM, HTN, HYPOXIA, BIPOLAR, NEUROPATHY, ANXIETY, CHF, AFIB, CKD, COVID, VERTIGO, GERD Surgeries: Yes Cardiac, Dialysis, Orthopedic, Renal, Vascular Surgery Respiratory: Yes (COMMUNITY ACQUIRED PNEUMONIA) Asthma, Pneumonia Currently Using CPAP: No (PT STATES HE IS SUPPOSED TO BUT HE DOES NOT.) Currently Using BIPAP: No Cardiac: Yes (PAD) Atrial Fibrillation, Cardiomyopathy, Coronary Artery Disease, High Cholesterol, Hypertension, Peripheral Vascular, Valvular Heart Disease Neurological: Yes (BRAIN INJURY CAUSES EMOTIONS TO CHANGE . LEFT SIDE WEAKNESS) Neuropathy Reproductive Disorders: No Sexually Transmitted Disease: No HIV/AIDS: No Kidney Stones, Renal Failure Gastrointestinal: Yes Colitis, Gastroesophageal Reflux, Diverticulosis, Polyps, Hiatal Hernia Musculoskeletal: Yes (WEAKNESS IN LEGS FROM STROKE ) Arthritis, Fibromyalgia, Rheumatoid Arthritis, Chronic Back Pain Endocrine: Yes Diabetes, Insulin dep Glaucoma Loss of Vision: Bilateral Hearing Impairment: Denies Cancer: No Psychosocial: Yes Sleep Difficulties, Bipolar, Depression Integumentary: No Blood Disorders: Yes (ANEMIA, BLOOD CLOTS ) Family Medical History Cardiovascular disease 19 MOTHER G8 BROTHER Colon cancer 19 MOTHER Completed stroke 19 FATHER Dementia 19 FATHER Diabetes mellitus 19 MOTHER FHx: macular degeneration 19 FATHER Myocardial infarction 19 MOTHER Heart Disease, Diabetes, Hypertension Physical Exam Vital Signs - First Documented 06/18/22 09:02 Temp 36.0 Pulse 51 Resp 22 B/P (MAP) 158/83 (108) Pulse Ox 97 O2 Delivery Nasal Cannula O2 Flow Rate 2.00 Capillary Refill : Height: 6'2" Weight: 250lbs. 0.0oz. 113.937045ov; 43.43 BMI Method:Estimated General Appearance: no apparent distress, obese Eyes: Bilateral Eye Normal Inspection, Bilateral Eye PERRL, Bilateral Eye EOMI HEENT: PERRL/EOMI Respiratory: lungs clear, normal breath sounds, no respiratory distress, no accessory muscle use, other (Occasional upper expiratory wheeze, oxygen saturations on 2 L per nasal cannula 94 to 97%, no increased work of breathing or distress is noted) Cardiovascular: regular rate, rhythm Gastrointestinal: other (Morbid obesity) Genital/Rectal: other (Notably has been incontinent of urine) Extremities: normal range of motion, other (Patient has thick woody edema bilateral lower extremities 2-3+) Neurologic/Psychiatric: alert, normal mood/affect, oriented x 3 Skin: normal color, warm/dry Procedures/Interventions Date of ETT Placement: Apr 17, 2022 Time of ETT Placement: 1130 Progress/Results/Core Measures Suspected Sepsis SIRS Temperature: Pulse: 51 Respiratory Rate: 22 Blood Pressure 158 /83 Mean: 108 Laboratory Tests 06/18/22 09:44: Creatinine 1.60H Results/Orders Lab Results Laboratory Tests Test 06/18/22 09:44 Range/Units Sodium Level 142 135-145 MMOL/L Potassium Level 5.4 H 3.6-5.0 MMOL/L Chloride Level 111 H 98-107 MMOL/L Carbon Dioxide Level 23 21-32 MMOL/L Anion Gap 8 5-14 MMOL/L Blood Urea Nitrogen 24 H 7-18 MG/DL Creatinine 1.60 H 0.60-1.30 MG/DL Estimat Glomerular Filtration Rate 50 BUN/Creatinine Ratio 15 Glucose Level 109 H 70-105 MG/DL Calcium Level 8.3 L 8.5-10.1 MG/DL My Orders Orders - ADILENE POLO MD Basic Metabolic Panel (06/18/22 09:27) Vital Signs/I&O 06/18/22 06/18/22 09:02 09:17 Temp 36.0 Pulse 51 Resp 22 B/P (MAP) 158/83 (108) Pulse Ox 97 O2 Delivery Nasal Cannula Nasal Cannula O2 Flow Rate 2.00 2.00 Capillary Refill : Blood Pressure Mean: 108 Progress Note : Time: 10:26 Progress Note Patient seen and evaluated, volume overload status today after eating Ramen noodles yesterday. Vital signs are stable. Oxygenation is normal. We will give an extra dose of his Lasix. He is on 60 twice daily. I am getting go ahead and give him 40 mg now. He is in no respiratory distress, has no chest pain. No concern for acute coronary syndrome. Chest pain protocol set considered but history and physical examination do not support the need. He does not need a chest x-ray as he is not currently hypoxic nor does he have any rales in his lungs. Patient recommended to continue Lasix therapy and avoid salt at the jail. All questions sought and answered Departure Impression Primary Impression: Bilateral lower extremity edema Additional Impression: CHF (congestive heart failure) Qualified Codes: I50.9 - Heart failure, unspecified Disposition: HOME, SELF-CARE Condition: Stable Departure-Patient Inst. Decision time for Depature: 10:28 Referrals: ELIZABETH QUESADA MD (PCP/Family) Primary Care Physician Patient Instructions: Heart Healthy Diet Add. Discharge Instructions: He has some fluid retention due to increased salt intake over the last 24 hours. He has been given an extra dose of Lasix, 40 mg. If he develops worsening shortness of breath, chest pain or fever he needs to come back to the emergency room for reevaluation. Continue routine medications as per the jail doctor. Copy Copies To 1: ELIZABETH QUESADA MD, KATHRYN M MD Jun 18, 2022 09:29
[2022-06-18 10:07] LABS: CALCIUM 8.3 MG/DL (8.5-10.1); CREATININE SERUM 1.6 MG/DL (0.60-1.30); POTASSIUM 5.4 MMOL/L (3.6-5.0)
[2022-06-18] MEDS ORDERED: FUROSEMIDE 40 MG (LASIX) TAB PO ONE (10:30)
[2022-06-18 10:47] VITALS: BP 165/86
== END 2022-06-18 10:49 | disposition home or self-care (01) ==
LOC: EDUNIT# 08:42 → ER 08:45
DX: I13.0 Hypertensive heart and chronic kidney disease with heart failure and stage 1 through stage 4 chronic kidney disease, or unspecified chronic kidney disease (principal); E11.22 Type 2 diabetes mellitus with diabetic chronic kidney disease; N18.9 Chronic kidney disease, unspecified; I50.9 Heart failure, unspecified; Z79.4 Long term (current) use of insulin; F17.200 Nicotine dependence, unspecified, uncomplicated; Z86.16 Personal history of COVID-19; Z99.2 Dependence on renal dialysis
CPT/HCPCS: 36415; 80048; 99283

== ENCOUNTER → 2022-06-21 | Outpatient (CLI) | payer MEDICARE, MEDICAID | LOC: WOUNDCARE 09:21 | PROVIDERS: ATTEND Family Medicine | DX: E11.621 Type 2 diabetes mellitus with foot ulcer (principal); E11.65 Type 2 diabetes mellitus with hyperglycemia; E11.52 Type 2 diabetes mellitus with diabetic peripheral angiopathy with gangrene; I96 Gangrene, not elsewhere classified; L97.512 Non-pressure chronic ulcer of other part of right foot with fat layer exposed; T87.89 Other complications of amputation stump; E66.01 Morbid (severe) obesity due to excess calories; M86.171 Other acute osteomyelitis, right ankle and foot; I70.235 Atherosclerosis of native arteries of right leg with ulceration of other part of foot; N18.32 Chronic kidney disease, stage 3b; I89.0 Lymphedema, not elsewhere classified; D63.1 Anemia in chronic kidney disease; E55.9 Vitamin D deficiency, unspecified; F17.208 Nicotine dependence, unspecified, with other nicotine-induced disorders; Z68.42 Body mass index [BMI] 45.0-49.9, adult | CPT/HCPCS: 11042 ==

== ENCOUNTER → 2022-06-28 | Outpatient (CLI) | payer MEDICARE, MEDICAID | LOC: WOUNDCARE 08:38 | PROVIDERS: ATTEND Family Medicine | DX: I96 Gangrene, not elsewhere classified (principal); L97.512 Non-pressure chronic ulcer of other part of right foot with fat layer exposed; T87.89 Other complications of amputation stump; I70.235 Atherosclerosis of native arteries of right leg with ulceration of other part of foot; N18.32 Chronic kidney disease, stage 3b; E11.621 Type 2 diabetes mellitus with foot ulcer; E11.65 Type 2 diabetes mellitus with hyperglycemia; E11.42 Type 2 diabetes mellitus with diabetic polyneuropathy; E66.01 Morbid (severe) obesity due to excess calories; M62.81 Muscle weakness (generalized); I89.0 Lymphedema, not elsewhere classified; D63.1 Anemia in chronic kidney disease; F17.218 Nicotine dependence, cigarettes, with other nicotine-induced disorders; E55.9 Vitamin D deficiency, unspecified; Z68.42 Body mass index [BMI] 45.0-49.9, adult | CPT/HCPCS: 11042 ==

== ENCOUNTER → 2022-07-06 | Outpatient (CLI) | payer MEDICARE, MEDICAID | LOC: WOUNDCARE 10:58 | PROVIDERS: ATTEND Family Medicine | DX: L97.512 Non-pressure chronic ulcer of other part of right foot with fat layer exposed (principal); E11.622 Type 2 diabetes mellitus with other skin ulcer; T87.89 Other complications of amputation stump; E11.65 Type 2 diabetes mellitus with hyperglycemia; E11.40 Type 2 diabetes mellitus with diabetic neuropathy, unspecified; E66.01 Morbid (severe) obesity due to excess calories; E11.22 Type 2 diabetes mellitus with diabetic chronic kidney disease; N18.30 Chronic kidney disease, stage 3 unspecified; M62.81 Muscle weakness (generalized); I70.235 Atherosclerosis of native arteries of right leg with ulceration of other part of foot; I89.0 Lymphedema, not elsewhere classified; D63.1 Anemia in chronic kidney disease; E55.9 Vitamin D deficiency, unspecified; F17.218 Nicotine dependence, cigarettes, with other nicotine-induced disorders; E11.52 Type 2 diabetes mellitus with diabetic peripheral angiopathy with gangrene; I96 Gangrene, not elsewhere classified | CPT/HCPCS: 11042 ==

== ENCOUNTER 2022-07-08 09:52 | Observation (INO) | payer MEDICARE, MEDICAID ==
[~2022-07-08] VITALS: Ht 193 cm; Wt 174.6 kg
--- NOTE | 2022-07-08 10:14 | ED General ---
General Chief Complaint: Cardiac/General Problems Stated Complaint: LETHARGIC Source of Information: Patient, EMS Exam Limitations: No Limitations History of Present Illness Date Seen by Provider: Jul 08, 2022 Time Seen by Provider: 09:59 Initial Comments Here with report of being lethargic per EMS. EMS reports [facility] reported to them that he was hypoxic, hypotensive and lethargic. They note normal- tension with O2 sats in the mid to upper 90s on 1 to 2 L of nasal cannula. Blood sugar by EMS was 125. Patient does have history of blood sugar issues and stroke. He does reside at the [facility]. Patient reports taking meds as directed. Denies sore throat, runny nose or cough but does feel fatigued. States that he has had some problems going to the bathroom. He does seem quite tired. Timing/Duration: 12 Hours Severity: Moderate Associated Systoms: No Chest Pain, No Cough, No Fever/Chills; Malaise; No Nausea/Vomiting, No Shortness of Air; Weakness Allergies and Home Medications Allergies Coded Allergies: penicillin V (Unverified Allergy, Unknown, 10/01/08) erythromycin base (Unverified Adverse Reaction, Mild, VOMITING, 03/18/13) Patient Home Medication List Home Medication List Reviewed: Yes Acetaminophen (Tylenol) 325 Mg Tablet, 650 MG PO Q6H PRN for PAIN-MILD (1-4), (Reported) Entered as Reported by: KALEN ALBERTO on 09/17/211410 Albuterol Sulfate (Albuterol Sulfate) 2.5 Mg/0.5 Ml Vial.neb, 2.5 MG INH Q8H PRN for SHORTNESS OF BREATH, (Reported) Entered as Reported by: KALEN ALBERTO on 09/17/211410 Amlodipine Besylate (Amlodipine Besylate) 10 Mg Tablet, 10 MG PO DAILY, (Reported) Entered as Reported by: KALEN ALBERTO on 09/17/211410 Apixaban (Eliquis) 5 Mg Tablet, 5 MG PO BID, (Reported) Entered as Reported by: JIM GRADY on 12/03/15 100 Aripiprazole (Aripiprazole) 10 Mg Tablet, 10 MG PO DAILY, (Reported) Entered as Reported by: JIM GRADY on 12/03/15 100 Aspirin (Aspirin EC) 81 Mg Tablet.dr, 81 MG PO DAILY, (Reported) Entered as Reported by: KALEN ALBERTO on 09/17/21 1411 Atorvastatin Calcium (Atorvastatin Calcium) 80 Mg Tablet, 80 MG PO HS, (Reported) Entered as Reported by: SHADY CHONG on 04/18/22 1107 Brimonidine Tartrate (Alphagan P) 5 Ml Drops, 1 DROP OU BID, (Reported) Entered as Reported by: KERA FELIPE on 02/22/21 1415 Budesonide/Formoterol Fumarate (Symbicort 160-4.5 Mcg Inhaler) 160 Mcg-4.5 Mcg/Actuation Hfa.aer.ad, 2 PUFF IH BID, (Reported) Entered as Reported by: RASTA SANCHES on 11/22/21 1202 Calcium Carbonate (Calcium Carbonate) 500 Mg Calcium (1250 Mg) Tablet, 500 MG PO Q8H PRN for HEARTBURN, (Reported) Entered as Reported by: SHADY CHONG on 04/28/22 1025 Diclofenac Sodium (Diclofenac Sodium) 1 % Gel..gram., 1 APPLIC TP Q4H PRN for PAIN-BREAKTHROUGH, (Reported) Entered as Reported by: SHADY CHONG on 04/18/22 1107 Divalproex Sodium (Divalproex Sodium) 250 Mg Tablet.dr, 250 MG PO TID, (Reported) Entered as Reported by: JIM GRADY on 12/03/15 1005 Docusate Sodium (Docusate Sodium) 100 Mg Capsule, 100 MG PO DAILY PRN for CONSTIPATION-1ST LINE, (Reported) Entered as Reported by: KALEN ALBERTO on 09/17/21 1411 Doxazosin Mesylate (Doxazosin Mesylate) 2 Mg Tablet, 2 MG PO HS, (Reported) Entered as Reported by: SHADY CHONG on 12/01/21 1051 Duloxetine HCl (Duloxetine HCl) 30 Mg Capsule., 30 MG PO DAILY, (Reported) Entered as Reported by: SHADY CHONG on 04/18/22 1107 Empagliflozin (Jardiance) 25 Mg Tablet, 25 MG PO DAILY, (Reported) Entered as Reported by: OSMANY QUEZADA on 11/20/21 1544 Furosemide (Furosemide) 20 Mg Tablet, 60 MG PO DAILY, (Reported) Entered as Reported by: KERA FELIPE on 02/22/21 1415 Gabapentin (Gabapentin) 100 Mg Capsule, 200 MG PO 0800,1200,2000, (Reported) Entered as Reported by: SHADY CHONG on 12/15/21 1049 Guaifenesin/Dextromethorphan (Guaifenesin-Dm 100-10 mg/5 ml) 5 Ml Liquid, 10 ML PO Q4H PRN for COUGH, (Reported) Entered as Reported by: KALEN ALBERTO on 09/17/21 141 Insulin Glargine,Hum.rec.anlog (Lantus Solostar) 100 Unit/Ml (3 Ml) Insuln.pen, 25 UNIT SQ BID, (Reported) Entered as Reported by: SHADY CHONG on 04/18/22 110 Insulin Lispro (Humalog Kwikpen) 200 Unit/Ml (3 Ml) Insuln.pen, 20 UNIT SQ AC, (Reported) Entered as Reported by: SHADY CHONG on 12/01/21 1051 Lactobacillus Acidophilus (Acidophilus) 1 Each Tab.chew, 1 EACH PO BID, (Reported) Entered as Reported by: SHADY CHONG on 04/18/22 111 Loperamide HCl (Loperamide) 2 Mg Tablet, 2 MG PO Q1H PRN for DIARRHEA, (Reported) Entered as Reported by: KALEN ALBERTO on 09/17/21 141 Meclizine HCl (Meclizine HCl) 25 Mg Tablet, 25 MG PO DAILY PRN for VERTIGO, (Reported) Entered as Reported by: KALEN ALBERTO on 09/17/21 141 Melatonin (Melatonin) 3 Mg Tablet, 3 MG PO HS, (Reported) Entered as Reported by: KALEN ALBERTO on 09/17/21 141 Metoprolol Tartrate (Metoprolol Tartrate) 100 Mg Tablet, 100 MG PO BID, (Reported) Entered as Reported by: KALEN ALBERTO on 09/17/21 141 Nicotine (Nicotine Patch) 7 Mg/24 Hour Patch.td24, 7 MG TD DAILY, (Reported) Entered as Reported by: SHADY CHONG on 04/18/22 110 Ondansetron (Ondansetron Odt) 4 Mg Tab.rapdis, 4 MG PO Q8H PRN for NAUSEA/VOMITING-1ST LINE, (Reported) Entered as Reported by: KALEN ALBERTO on 09/17/21 1411 Ped Multivit #43/Iron Fumarate (Flintstones Complete Chew Tab) 18 Mg Iron Tab.chew, 18 MG PO DAILY, (Reported) Entered as Reported by: RASTA SANCHES on 11/22/21 1155 Polyethylene Glycol 3350 (Miralax) 17 Gm Powd.pack, 17 GM PO Q12H PRN for CONSTIPATION-2ND LINE, (Reported) Entered as Reported by: KALEN ALBERTO on 09/17/21 1411 Potassium Chloride (Potassium Chloride) 10 Meq Capsule.er, 10 MEQ PO DAILY, (Reported) Entered as Reported by: SHADY CHONG on 04/18/22 1107 Simethicone (Simethicone) 125 Mg Capsule, 125 MG PO Q8H PRN for GAS, (Reported) Entered as Reported by: SHADY CHONG on 04/18/22 110 Tamsulosin HCl (Flomax) 0.4 Mg Cap, 0.4 MG PO DAILY, (Reported) Entered as Reported by: KERA FELIPE on 02/22/21 1415 Tiotropium [place] (Spiriva Respimat 1.25MCG/ACTUATION) 4 Gm Mist.inhal, 2 PUFF IH DAILY, (Reported) Entered as Reported by: KERA FELIPE on 02/22/21 1415 Tramadol HCl (Tramadol HCl) 50 Mg Tablet, 50 MG PO Q8HR PRN for PAIN-MODERATE (5-7), (Reported) Entered as Reported by: RENETTA GAUTHIER on 11/30/21 1657 Review of Systems Review of Systems Constitutional: see HPI; No chills, No fever EENTM: No nose congestion, No throat pain Respiratory: No cough, No short of breath Cardiovascular: No chest pain; edema Gastrointestinal: No diarrhea, No nausea, No vomiting Genitourinary: no symptoms reported Musculoskeletal: No back pain, No muscle pain Skin: dryness; No lesions Psychiatric/Neurological: Pre-Existing Deficit, Weakness All Other Systems Reviewed Negative Unless Noted: Yes Past Pdwnfgw-Sfubme-Gkwzgh Hx Patient Social History Tobacco Use?: No Substance use?: No Alcohol Use?: No Pt feels they are or have been: No Immunizations Up To Date Influenza Vaccine Up-to-Date: Yes; Up-to-Date First/Initial COVID19 Vaccinat: 07/16/20 Second COVID19 Vaccination Bryce: 08/05/20 Third COVID19 Vaccination Date: 10/27/21 Seasonal Allergies Seasonal Allergies: No Past Medical History Surgery/Hospitalization HX: DM, HTN, HYPOXIA, BIPOLAR, NEUROPATHY, ANXIETY, CHF, AFIB, CKD, COVID, VERTIGO, GERD Surgeries: Yes Cardiac, Dialysis, Orthopedic, Renal, Vascular Surgery Respiratory: Yes (COMMUNITY ACQUIRED PNEUMONIA) Asthma, Pneumonia Currently Using CPAP: No (PT STATES HE IS SUPPOSED TO BUT HE DOES NOT.) Currently Using BIPAP: No Cardiac: Yes (PAD) Atrial Fibrillation, Cardiomyopathy, Coronary Artery Disease, High Cholesterol, Hypertension, Peripheral Vascular, Valvular Heart Disease Neurological: Yes (BRAIN INJURY CAUSES EMOTIONS TO CHANGE . LEFT SIDE WEAKNESS) Neuropathy Reproductive Disorders: No Sexually Transmitted Disease: No HIV/AIDS: No Kidney Stones, Renal Failure Gastrointestinal: Yes Colitis, Gastroesophageal Reflux, Diverticulosis, Polyps, Hiatal Hernia Musculoskeletal: Yes (WEAKNESS IN LEGS FROM STROKE ) Arthritis, Fibromyalgia, Rheumatoid Arthritis, Chronic Back Pain Endocrine: Yes Diabetes, Insulin dep Glaucoma Loss of Vision: Bilateral Hearing Impairment: Denies Cancer: No Psychosocial: Yes Sleep Difficulties, Bipolar, Depression Integumentary: No Blood Disorders: Yes (ANEMIA, BLOOD CLOTS ) Family Medical History Reviewed Nursing Family Hx Cardiovascular disease 19 MOTHER G8 BROTHER Colon cancer 19 MOTHER Completed stroke 19 FATHER Dementia 19 FATHER Diabetes mellitus 19 MOTHER FHx: macular degeneration 19 FATHER Myocardial infarction 19 MOTHER Heart Disease, Diabetes, Hypertension Physical Exam Vital Signs Vital Signs - First Documented 07/08/22 09:56 Temp 35.8 Pulse 48 Resp 18 B/P (MAP) 116/50 (72) Pulse Ox 100 O2 Delivery Nasal Cannula O2 Flow Rate 2.00 Capillary Refill : Height, Weight, BMI Height: 6'2" Weight: 250lbs. 0.0oz. [id number]; 43.43 BMI Method:Estimated General Appearance: Chronically ill, Mild Distress, Obese HEENT: PERRL/EOMI, Pharynx Normal Neck: Non Tender, Supple Respiratory: No Accessory Muscle Use, Decreased Breath Sounds (Obese) Cardiovascular: No Murmur, Bradycardia (Persistently rising in the 40s and noted to be from 40-47) Gastrointestinal: Non Tender, Soft; No Distended, No Guarding Back: No CVA Tenderness, No Vertebral Tenderness Extremity: Non Tender, Pedal Edema (2+ bilaterally level of knees) Neurologic/Psychiatric: Alert, Depressed Affect, Other (Answers questions well but falls asleep quickly. Does have left-sided deficit from previous stroke. Oriented to self, and place and a little confused to situation) Skin: Warm/Dry, Other (Skin thickening noted bilateral flanks posterior ankle area buttocks) Procedures/Interventions Date of ETT Placement: Apr 17, 2022 Time of ETT Placement: 1130 Progress/Results/Core Measures Suspected Sepsis SIRS Temperature: Pulse: Respiratory Rate: Laboratory Tests 07/08/22 10:07: White Blood Count 6.2 Blood Pressure / Mean: Laboratory Tests 07/08/22 10:07: Creatinine 1.87H, Platelet Count 174, Total Bilirubin 0.3 Results/Orders Lab Results Laboratory Tests Test 07/08/22 10:07 07/08/22 10:30 Range/Units White Blood Count 6.2 4.3-11.0 10^3/uL Red Blood Count 3.36 L 4.30-5.52 10^6/uL Hemoglobin 9.0 L 13.3-17.7 g/dL Hematocrit 32 L 40-54 % Mean Corpuscular Volume 94 80-99 fL Mean Corpuscular Hemoglobin 27 25-34 pg Mean Corpuscular Hemoglobin Concent 28 L 32-36 g/dL Red Cell Distribution Width 21.3 H 10.0-14.5 % Platelet Count 174 130-400 10^3/uL Mean Platelet Volume 9.0-12.2 fL Immature Granulocyte % (Auto) 1 % Neutrophils (%) (Auto) 62 42-75 % Lymphocytes (%) (Auto) 18 12-44 % Monocytes (%) (Auto) 14 H 0-12 % Eosinophils (%) (Auto) 4 0-10 % Basophils (%) (Auto) 1 0-10 % Neutrophils # (Auto) 3.8 1.8-7.8 10^3/uL Lymphocytes # (Auto) 1.1 1.0-4.0 10^3/uL Monocytes # (Auto) 0.9 0.0-1.0 10^3/uL Eosinophils # (Auto) 0.3 0.0-0.3 10^3/uL Basophils # (Auto) 0.1 0.0-0.1 10^3/uL Immature Granulocyte # (Auto) 0.0 0.0-0.1 10^3/uL Percent Immature Platelet Fraction 8.5 H 0.0-7.6 % Sodium Level 145 135-145 MMOL/L Potassium Level 5.3 H 3.6-5.0 MMOL/L Chloride Level 109 H 98-107 MMOL/L Carbon Dioxide Level 28 21-32 MMOL/L Anion Gap 8 5-14 MMOL/L Blood Urea Nitrogen 22 H 7-18 MG/DL Creatinine 1.87 H 0.60-1.30 MG/DL Estimat Glomerular Filtration Rate 41 BUN/Creatinine Ratio 12 Glucose Level 110 H 70-105 MG/DL Calcium Level 8.1 L 8.5-10.1 MG/DL Corrected Calcium 8.7 8.5-10.1 MG/DL Magnesium Level 2.5 H 1.6-2.4 MG/DL Total Bilirubin 0.3 0.1-1.0 MG/DL Aspartate Amino Transf (AST/SGOT) 11 5-34 U/L Alanine Aminotransferase (ALT/SGPT) 12 0-55 U/L Alkaline Phosphatase 55 40-136 U/L Troponin I < 0.028 <0.028 NG/ML C-Reactive Protein High Sensitivity 0.32 0.00-0.50 MG/DL B-Type Natriuretic Peptide 535.4 H <100.0 PG/ML Total Protein 7.3 6.4-8.2 GM/DL Albumin 3.2 3.2-4.5 GM/DL Procalcitonin 0.11 H <0.10 NG/ML TSH [place] Testing 2.56 0.35-4.94 UIU/ML Urine Color YELLOW Urine Clarity CLEAR Urine pH 5.5 5-9 Urine Specific [place] >=1.030 1.016-1.022 Urine Protein 3+ H NEGATIVE Urine Glucose (UA) 3+ H NEGATIVE Urine Ketones NEGATIVE NEGATIVE Urine Nitrite NEGATIVE NEGATIVE Urine Bilirubin NEGATIVE NEGATIVE Urine Urobilinogen 0.2 < = 1.0 MG/DL Urine Leukocyte Esterase NEGATIVE NEGATIVE Urine RBC (Auto) TRACE-I H NEGATIVE Urine RBC 0-2 /HPF Urine WBC 5-10 H /HPF Urine Squamous Epithelial Cells 0-2 /HPF Urine Crystals NONE /LPF Urine Bacteria TRACE /HPF Urine Casts NONE /LPF Urine Mucus NEGATIVE /LPF Urine Culture Indicated NO My Orders Orders - MEMO MELO MD Ekg Tracing (07/08/22 09:58) Ed Iv/Invasive Line Start (07/08/22 10:06) Ekg Tracing (07/08/22 10:06) O2 (07/08/22 10:06) Monitor-Rhythm Ecg Trace Only (07/08/22 10:06) Chest 1 View, Ap/Pa Only (07/08/22 10:06) Bnp [place] (07/08/22 10:06) Cbc With Automated Diff (07/08/22 10:06) Comprehensive Metabolic Panel (07/08/22 10:06) Hs C Reactive Protein (07/08/22 10:06) Magnesium (07/08/22 10:06) Procalcitonin (Pct) (07/08/22 10:06) Thyroid Analyzer (07/08/22 10:06) Troponin I [place] (07/08/22 10:06) Ua Culture If Indicated (07/08/22 10:06) Code/Resuscitation (07/08/22 10:08) Ct Chest Wo (07/08/22 11:46) Furosemide Injection (Lasix Injection) (07/08/22 14:00) Vital Signs/I&O 07/08/22 07/08/22 09:56 10:03 Temp 35.8 Pulse 48 Resp 18 B/P (MAP) 116/50 (72) Pulse Ox 100 O2 Delivery Nasal Cannula Nasal Cannula O2 Flow Rate 2.00 Capillary Refill : Progress Note : Progress Note Seen and evaluated. IV, labs, EKG and chest x-ray ordered. CBC, CMP, troponin, magnesium, CRP, procalcitonin, UA and thyroid study ordered. Concerns about bradycardia and/or possible sick sinus syndrome given the persistence of bradycardia. He is normotensive currently and only requiring 1 L of oxygen. I did discuss CODE STATUS with the patient and he wishes to be full code. 1407: I did order CT scan of the chest due to abnormality noted on chest x-ray. Does have findings consistent with heart failure but there was concern about mass. CT chest does not show mass and does confirm heart failure findings. Patient does have elevated BNP. We will give Lasix 40 mg IV and patient to be admitted. I did discuss the case with Dr. Cuevas and she accepts patient for admission, inpatient status. She will write orders. I will discuss the case with Dr. Kurtz as well. Patient does have elevated serum creatinine but consistent with previous. Slightly elevated potassium. This will be improved with Lasix. Discussed admission with the patient who agrees with plan. ECG Initial ECG Impression Date: Jul 08, 2022 Initial ECG Impression Time: 10:04 Initial ECG Rate: 47 Initial ECG Rhythm: A Fib/Flutter Initial ECG Impression: Atrial Fibrillation Comment Atrial fibrillation with bradycardic rate of 47. Normal axis. No evidence of ST elevation MA. Interpreted by me. Diagnostic Imaging Diagonstic Imaging: Xray Plain Films/CT/US/NM/MRI: chest [facility] [place], [place] NAME: SERG KEBEDE MED REC#: [id number] PT STATUS: REG ER : 1965 PHYSICIAN: MEMO MELO MD ADMIT DATE: 07/08/22/ER Signed Date of Exam:07/08/22 CHEST 1 VIEW, AP/PA ONLY INDICATION: Shortness of air. TECHNIQUE: Single view chest 10:13 AM. CORRELATION STUDY: 04/27/2022 FINDINGS: Rather pronounced cardiac enlargement with a round configuration. Generally stable. Vasculature however slightly increased from prior. Perihilar areas of atelectasis. May be a central edema. No consolidating infiltrate. No large effusion. Asymmetric opacity of the right lung apex. IMPRESSION: 1. Cardiac enlargement with a rounded configuration. Can reflect a cardiomyopathy versus pericardial effusion. 2. Appears be a component vascular congestion and edema, change from prior. 3. Asymmetric opacity right lung apex. Features reflect apical pleural fluid versus infiltrate and/or atelectasis. Would recommend followup imaging as this appears changed from prior. Mass considered more remote but not excluded. Dictated by: Dictated on workstation # [id number] Dict: 07/08/22 1026 Trans: 07/08/22 1143 [facility] [id number] Interpreted by: ALLY WILLIAM DO Electronically signed by: ALLY WILLIAM DO 07/08/22 1143 Diagonstic Imaging: CT Plain Films/CT/US/NM/MRI: chest Comments [facility] [place] [place] NAME: SERG KEBEDE MED REC#: [id number] PT STATUS: REG ER : 1965 PHYSICIAN: MEMO MELO MD ADMIT DATE: 07/08/22/ER Signed Date of Exam:07/08/22 CT CHEST WO EXAMINATION: CT chest without contrast. TECHNIQUE: Multiple contiguous axial images were obtained through the chest without the use of intravenous contrast. All CT scans use one or more of the following dose optimizing techniques: Automated exposure control, MA and/or KvP adjustment based on patient size and exam type or iterative reconstruction. HISTORY: Low oxygenation saturation. Shortness of breath. Concern for mass on chest x-ray. COMPARISON: Chest radiograph performed earlier the same date. CTA chest on 10/03/2014. FINDINGS: The heart size is prominent. No pericardial effusion is present. There is no mediastinal, hilar, or axillary lymphadenopathy. The lungs demonstrate no pulmonary nodules or masses. Ground-glass and patchy opacities are seen throughout the lungs. Dependent opacities are seen in the lung bases. There are no focal areas of consolidation. No central endobronchial obstructing lesions are identified. Moderate right and trace left pleural effusions are seen. No pneumothorax. The osseous structures demonstrate no acute abnormalities. Limited views of the upper abdominal structures demonstrate no acute abnormalities. Both adrenal glands are unremarkable. IMPRESSION: 1. Cardiomegaly with likely pulmonary edema. 2. Moderate right and trace left pleural effusions. 3. No evidence of mass in the right lung apex. Findings on the x-ray may have represented overlapping soft tissues. Dictated by: Dictated on workstation # [id number] Dict: 07/08/22 1257 Trans: 07/08/22 1307 [id number] Interpreted by: TYE SANTACRUZ DO Electronically signed by: TYE SANTACRUZ DO 07/08/22 1307 Departure Impression Primary Impression: Acute on chronic congestive heart failure Qualified Codes: I50.9 - Heart failure, unspecified Disposition: ADMITTED INPATIENT Condition: Stable Admissions Decision to Admit Reason: Admit from ER (General) Decision to Admit/Date: Jul 08, 2022 Time/Decision to Admit Time: 14:05 Departure-Patient Inst. Referrals: ELIZABETH QUESADA MD (PCP/Family) Primary Care Physician MEMO MELO MD Jul 08, 2022 10:14
[2022-07-08 10:22] LABS: WHITE BLOOD COUNT 6.2 10^3/uL (4.3-11.0)
[2022-07-08 10:23] LABS: BASOPHILS # (AUTO) 0.1 10^3/uL (0.0-0.1); BASOPHILS % (AUTO) 1 % (0-10); EOSINOPHILS # (AUTO) 0.3 10^3/uL (0.0-0.3); EOSINOPHILS % (AUTO) 4 % (0-10); HEMATOCRIT 32 % (40-54); LYMPHOCYTES # (AUTO) 1.1 10^3/uL (1.0-4.0); LYMPHOCYTES % (AUTO) 18 % (12-44); MEAN CORPUSCULAR HEMOGLOBIN 27 pg (25-34); MEAN CORPUSCULAR HGB CONC 28 g/dL (32-36); MEAN CORPUSCULAR VOLUME 94 fL (80-99); MONOCYTES # (AUTO) 0.9 10^3/uL (0.0-1.0); MONOCYTES % (AUTO) 14 % (0-12); NEUTROPHILS # (AUTO) 3.8 10^3/uL (1.8-7.8); NEUTROPHILS % (AUTO) 62 % (42-75); PLATELET COUNT 174 10^3/uL (130-400)
--- NOTE | 2022-07-08 10:36 | Diagnostic Imaging Report ---
INDICATION: Shortness of air. TECHNIQUE: Single view chest 10:13 AM. CORRELATION STUDY: 04/27/2022 FINDINGS: Rather pronounced cardiac enlargement with a round configuration. Generally stable. Vasculature however slightly increased from prior. Perihilar areas of atelectasis. May be a central edema. No consolidating infiltrate. No large effusion. Asymmetric opacity of the right lung apex. IMPRESSION: 1. Cardiac enlargement with a rounded configuration. Can reflect a cardiomyopathy versus pericardial effusion. 2. Appears be a component vascular congestion and edema, change from prior. 3. Asymmetric opacity right lung apex. Features reflect apical pleural fluid versus infiltrate and/or atelectasis. Would recommend followup imaging as this appears changed from prior. Mass considered more remote but not excluded. Dictated by: Dictated on workstation # [id number]
[2022-07-08 10:38] LABS: BILIRUBIN,URINE NEGATIVE (NEGATIVE); CLARITY,URINE CLEAR; COLOR,URINE YELLOW; GLUCOSE, URINE (UA) 3+ (NEGATIVE); KETONES,URINE NEGATIVE (NEGATIVE); LEUKOCYTE ESTERASE ,URINE NEGATIVE (NEGATIVE); NITRITE,URINE NEGATIVE (NEGATIVE); PH,URINE 5.5 (5-9); PROTEIN,URINE 3+ (NEGATIVE)
[2022-07-08 10:39] LABS: ALBUMIN 3.2 GM/DL (3.2-4.5); CHLORIDE 109 MMOL/L (98-107); POTASSIUM 5.3 MMOL/L (3.6-5.0); SODIUM 145 MMOL/L (135-145)
[2022-07-08 10:40] LABS: CALCIUM 8.1 MG/DL (8.5-10.1)
[2022-07-08 10:41] LABS: GLUCOSE 110 MG/DL (70-105); TOTAL PROTEIN 7.3 GM/DL (6.4-8.2)
[2022-07-08 10:42] LABS: CARBON DIOXIDE 28 MMOL/L (21-32)
[2022-07-08 10:43] LABS: BILIRUBIN,TOTAL 0.3 MG/DL (0.1-1.0)
[2022-07-08 10:45] LABS: ALKALINE PHOSPHATASE 55 U/L (40-136); CREATININE SERUM 1.87 MG/DL (0.60-1.30); GFR ESTIMATED 41
[2022-07-08 10:46] LABS: BUN/CREATININE RATIO 12
[2022-07-08 10:48] LABS: ALANINE AMINOTRANSFERASE 12 U/L (0-55); MAGNESIUM 2.5 MG/DL (1.6-2.4)
[2022-07-08 10:48] LABS: BACTERIA,URINE TRACE /HPF; RBC,URINE 0-2 /HPF; SQUAMOUS EPITHELIAL CELL,UR 0-2 /HPF
[2022-07-08 11:09] LABS: TSH (THYROID ANALYZER) 2.56 UIU/ML (0.35-4.94)
--- NOTE | 2022-07-08 13:03 | Diagnostic Imaging Report ---
EXAMINATION: CT chest without contrast. TECHNIQUE: Multiple contiguous axial images were obtained through the chest without the use of intravenous contrast. All CT scans use one or more of the following dose optimizing techniques: Automated exposure control, MA and/or KvP adjustment based on patient size and exam type or iterative reconstruction. HISTORY: Low oxygenation saturation. Shortness of breath. Concern for mass on chest x-ray. COMPARISON: Chest radiograph performed earlier the same date. CTA chest on 10/03/2014. FINDINGS: The heart size is prominent. No pericardial effusion is present. There is no mediastinal, hilar, or axillary lymphadenopathy. The lungs demonstrate no pulmonary nodules or masses. Ground-glass and patchy opacities are seen throughout the lungs. Dependent opacities are seen in the lung bases. There are no focal areas of consolidation. No central endobronchial obstructing lesions are identified. Moderate right and trace left pleural effusions are seen. No pneumothorax. The osseous structures demonstrate no acute abnormalities. Limited views of the upper abdominal structures demonstrate no acute abnormalities. Both adrenal glands are unremarkable. IMPRESSION: 1. Cardiomegaly with likely pulmonary edema. 2. Moderate right and trace left pleural effusions. 3. No evidence of mass in the right lung apex. Findings on the x-ray may have represented overlapping soft tissues. Dictated by: Dictated on workstation # [id number]
[2022-07-08] MEDS ORDERED: FUROSEMIDE 40 MG/4 ML INJ (LASIX) IVP ONE (14:00)
--- NOTE | 2022-07-08 14:32 | History & Physical-Hospitalist ---
History of Present Illness HPI/Chief Complaint Patient is a 57-year-old -Uz[place] male known to me from multiple admissions who presented to the emergency department due to shortness of breath and hypoxia. custodial sent him over for evaluation his heart rate was low in the 40s and he had low oxygen. Apparently he does not normally wear oxygen though patient does state that he wears 2 L all the time. On arrival he was found to be mildly hypoxic with a heart rate dipping into the 30s. Imaging revealed pulmonary edema. He states he has been short of breath for the past 8 or so weeks since being in the hospital on a ventilator. He was given Lasix in the emergency department and is being admitted for acutely decompensated heart failure. Source: patient Date Seen 07/08/22 Time Seen by a Provider: 14:32 Attending Physician Elizabeth Nunez MD PCP Admitting Physician: Raisa Cuevas MD Attending Physician: Raisa Cuevas MD Referring Physician Date of Admission Jul 08, 2022 at 14:14 Home Medications & Allergies Home Medications Reviewed patient Home Medication Reconciliation performed by pharmacy medication reconciliations durability technician and/or nursing. Patients Allergies have been reviewed. Allergies Allergies Coded Allergies penicillin V (Unverified Allergy, Unknown, 10/01/08) erythromycin base (Unverified Adverse Reaction, Mild, VOMITING, 03/18/13) Past Xyxetnh-Jlngay-Ivzgco Hx Patient Social History Employed/Student: retired Tobacco Use?: No Smoking Status: Former Smoker Substance use?: No Alcohol Use?: No Pt feels they are or have been: No Immunizations Up To Date Date of Influenza Vaccine: Apr 09, 2022 First/Initial COVID19 Vaccinat: 07/16/20 Second COVID19 Vaccination Bryce: 08/05/20 Tetanus Booster (TDap): Unknown Hepatitis A: No Hepatitis B: No Date of Pneumonia Vaccine: Mar 20, 2013 Seasonal Allergies Seasonal Allergies: No Current Status Primary Language: Trinidadian Preferred Spoken Language: Trinidadian Past Medical History Surgeries: Cardiac, Dialysis, Orthopedic, Renal, Vascular Surgery Asthma, Pneumonia Currently Using CPAP: No (PT STATES HE IS SUPPOSED TO BUT HE DOES NOT.) Currently Using BIPAP: No Atrial Fibrillation, Cardiomyopathy, Coronary Artery Disease, High Cholesterol, Hypertension, Peripheral Vascular, Valvular Heart Disease Neuropathy Sexually Transmitted Disease: No HIV/AIDS: No Kidney Stones, Renal Failure Colitis, Gastroesophageal Reflux, Diverticulosis, Polyps, Hiatal Hernia Arthritis, Fibromyalgia, Rheumatoid Arthritis, Chronic Back Pain Diabetes, Insulin dep Glaucoma Loss of Vision: Bilateral Hearing Impairment: Denies Sleep Difficulties, Bipolar, Depression Blood Disorders: Yes (ANEMIA, BLOOD CLOTS ) Past Medical History 1. Diabetes Mellitus 2. Hypertension 3. Seizure Disorder- history of grand mal per pt. report (no records of neurology evaluation) 4. Bi-polar Disorder 5. Depression 6. Anxiety 7. Peripheral Neuropathy 8. History of Acute Renal Failure requiring hemodialysis 2003. 9. History of superficial RUE venous thrombus due to central line placement 10. History of chronic joint pain. 11. Chronic Peripheral Edema 12. Tobaccoism 13. 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 14. Diastolic dysfunction due to uncontrolled hypertension 15. Mild coronary artery disease per cath 16. Hyperlipidemia 17. Non-compliance with follow up and medication use 18. Hx ischemic Right Frontoparietal Infarct in the Right MCA distribution 06/2015 19. Hx of second right MCA stroke in 11/2015 20. Paroxysmal atrial fibrillation Family Medical History Reviewed Nursing Family Hx Cardiovascular disease 19 MOTHER G8 BROTHER Colon cancer 19 MOTHER Completed stroke 19 FATHER Dementia 19 FATHER Diabetes mellitus 19 MOTHER FHx: macular degeneration 19 FATHER Myocardial infarction 19 MOTHER Heart Disease, Diabetes, Hypertension Review of Systems Constitutional: No chills, No fever EENTM: no symptoms reported Respiratory: cough, short of breath Cardiovascular: no symptoms reported Gastrointestinal: no symptoms reported Musculoskeletal: no symptoms reported Skin: no symptoms reported Psychiatric/Neurological: No Symptoms Reported Physical Exam Physical Exam Vital Signs Vital Signs - First Documented 07/08/22 09:56 Temp 35.8 Pulse 48 Resp 18 B/P (MAP) 116/50 (72) Pulse Ox 100 O2 Delivery Nasal Cannula O2 Flow Rate 2.00 Capillary Refill : Height, Weight, BMI Height: 6'2" Weight: 250lbs. 0.0oz. 113.942095db; 43.43 BMI Method:Estimated General Appearance: No Apparent Distress, Chronically ill, Obese HEENT: PERRL/EOMI, Moist Mucous Membranes; No Scleral Icterus (L), No Scleral Icterus (R) Neck: Normal Inspection, Supple Respiratory: Lungs Clear, No Accessory Muscle Use, No Respiratory Distress, Other (satting 100% on 2lpm- I turned off at bedside) Cardiovascular: Regular Rate, Rhythm, No Murmur Gastrointestinal: Normal Bowel Sounds, Non Tender, Soft Extremity: Normal Capillary Refill, No Calf Tenderness, Pedal Edema, Other (venous stasis changes) Neurologic/Psychiatric: Alert, Oriented x3 Skin: Normal Color, Warm/Dry Results Results/Procedures Labs Laboratory Tests 07/08/22 10:07 07/09/22 10:08 Patient resulted labs reviewed. Imaging: Reviewed Imaging Report [facility] [place] [place] NAME: SERG KEBEDE Gretel [facility] REC#: [id number] PT STATUS: REG ER : 1965 PHYSICIAN: MEMO MELO MD ADMIT DATE: 07/08/22/ER Signed Date of Exam:07/08/22 CHEST 1 VIEW, AP/PA ONLY INDICATION: Shortness of air. TECHNIQUE: Single view chest 10:13 AM. CORRELATION STUDY: 04/27/2022 FINDINGS: Rather pronounced cardiac enlargement with a round configuration. Generally stable. Vasculature however slightly increased from prior. Perihilar areas of atelectasis. May be a central edema. No consolidating infiltrate. No large effusion. Asymmetric opacity of the right lung apex. IMPRESSION: 1. Cardiac enlargement with a rounded configuration. Can reflect a cardiomyopathy versus pericardial effusion. 2. Appears be a component vascular congestion and edema, change from prior. 3. Asymmetric opacity right lung apex. Features reflect apical pleural fluid versus infiltrate and/or atelectasis. Would recommend followup imaging as this appears changed from prior. Mass considered more remote but not excluded. Dictated by: Dictated on workstation # [id number] Dict: 07/08/22 1026 Trans: 07/08/22 1143 [facility] [id number] Interpreted by: ALLY WILLIAM DO Electronically signed by: ALLY WILLIAM DO 07/08/22 1143 [facility] [place] [place] NAME: SERG KEBEDE Gretel [facility] REC#: [id number] PT STATUS: REG ER : 1965 PHYSICIAN: MEMO MELO MD ADMIT DATE: 07/08/22/ER Signed Date of Exam:07/08/22 CT CHEST WO EXAMINATION: CT chest without contrast. TECHNIQUE: Multiple contiguous axial images were obtained through the chest without the use of intravenous contrast. All CT scans use one or more of the following dose optimizing techniques: Automated exposure control, MA and/or KvP adjustment based on patient size and exam type or iterative reconstruction. HISTORY: Low oxygenation saturation. Shortness of breath. Concern for mass on chest x-ray. COMPARISON: Chest radiograph performed earlier the same date. CTA chest on 10/03/2014. FINDINGS: The heart size is prominent. No pericardial effusion is present. There is no mediastinal, hilar, or axillary lymphadenopathy. The lungs demonstrate no pulmonary nodules or masses. Ground-glass and patchy opacities are seen throughout the lungs. Dependent opacities are seen in the lung bases. There are no focal areas of consolidation. No central endobronchial obstructing lesions are identified. Moderate right and trace left pleural effusions are seen. No pneumothorax. The osseous structures demonstrate no acute abnormalities. Limited views of the upper abdominal structures demonstrate no acute abnormalities. Both adrenal glands are unremarkable. IMPRESSION: 1. Cardiomegaly with likely pulmonary edema. 2. Moderate right and trace left pleural effusions. 3. No evidence of mass in the right lung apex. Findings on the x-ray may have represented overlapping soft tissues. Dictated by: Dictated on workstation # [id number] Dict: 07/08/22 1257 Trans: 07/08/22 1307 [id number] Interpreted by: TYE SANTACRUZ DO Electronically signed by: TYE SANTACRUZ DO 07/08/22 1307 Assessment/Plan Admission Diagnosis CHF exacerbation Admission Status: Observation Assessment and Plan CHF exacerbation Continue Lasix Cardiology consulted, appreciate recs Continue home meds as able I/Os Last echo done in April 30- recovered EF (50-55%) CKD stage 3a Creatinine slightly up from baseline Monitor UOP Trend with lasix T2DM BS labile at time, 110 on arrival SSI/Accu checks HTN AFib Bipolar disorder BPH Continue home meds as appropriate Morbid obesity Clinically significant, no acute management needs DVT ppx: Already on eliquis Diagnosis/Problems Diagnosis/Problems (1) Acute on chronic congestive heart failure Status: Acute Qualifiers: Heart failure type: unspecified Qualified Codes: I50.9 - Heart failure, unspecified Copy Copies To 1: ELIZABETH NUNEZ MD, KATELYN M MD Jul 08, 2022 2:32 pm
[2022-07-08] MEDS ORDERED: MILK OF MAGNESIA 400 MG/5 ML 30 ML UDC PO PRN (14:45)
[2022-07-08] MEDS ORDERED: ACETAMINOPHEN 500 MG TAB (TYLENOL) PO PRN (14:45)
[2022-07-08] MEDS ORDERED: MELATONIN 3 MG TABLET PO PRN (14:45)
[2022-07-08] MEDS ORDERED: ONDANSETRON 4 MG/2 ML (SDV) Z0FRAN IV PRN (14:45)
[2022-07-08] MEDS ORDERED: ANTACID SUSP 30 ML UDC (MYLANTA) PO PRN (14:45)
[2022-07-08] MEDS ORDERED: BENZONATATE 100 MG (TESSALON) CAPSULE PO PRN (14:45)
[2022-07-08 15:00] VITALS: BP 152/90
[2022-07-08 15:30] VITALS: BP 152/90
--- NOTE | 2022-07-08 15:46 | Physical Therapy Evaluation ---
PT Evaluation-General Medical Diagnosis Admission Date Jul 08, 2022 at 14:14 Medical Diagnosis: SOB, hypoxia Onset Date: Jul 08, 2022 Therapy Diagnosis Therapy Diagnosis: impaired mobility Height/Weight Height (Feet): 6 Height (Inches): 2 Weight (Pounds): 250 Weight (Ounces): 0.0 Precautions Precautions/Isolations: Standard Precautions Referral Physician: Mason Reason for Referral: Evaluation/Treatment Medical History Pertinent Medical History: Atrial Fib, Arthritis, CAD, CVA, DM, Diverticulitis, GERD, Heart Failure, HTN, [place], Neuropathy, PVD, Renal Insufficiency, Rheumatoid Arthritis, Smoking Social History Home: Snf Prior Prior Level of Function SCALE: Activities may be completed with or without assistive devices. 3-Nvsuxghyef-dregxub completes the activity by him/herself with no assistance from a helper. 5-Set-up or Clean-up Assistance-helper sets up or cleans up; patient completes activity. [place] assists only prior to or following the activity. 4-Supervision or Touching Assistance-helper provides verbal cues and/or touching/steadying and/or contact guard assistance as patient completes activity. Assistance may be provided throughout the activity or intermittently. 3-Partial/Moderate Assistance-helper does LESS THAN HALF the effort. [place] lifts, holds or supports trunk or limbs, but provides less than half the effort. 2-Substantial/Maximal Assistance-helper does MORE THAN HALF the effort. [place] lifts or holds trunk or limbs and provides more than half the effort. 3-Hkxnuojws-smkbri does ALL the effort. Patient does none of the effort to complete the activity. Or, the assistance of 2 or more helpers is required for the patient to complete the activity. If activity was not attempted, code reason: 7-Patient Refused. 9-Not Applicable-not attempted and the patient did not perform the activity before the current illness, exacerbation or injury. 10-Not Attempted due to Environmental Limitations-(lack of equipment, weather restraints, etc.). 88-Not Attempted due to Medical Conditions or Safety Concerns. Bed Mobility: 3 Transfers (B,C,W/C): 3 Gait: 3 Prior Devices Use: Walker (patient states he uses the back of the WC like a walker) PT Evaluation-Current Subjective Patient in bed pre tx, agrees to PT, has 7/10 pain in both hips. Pt/Family Goals to be independent with mobility Objective Patient Orientation: Person, Place, Situation Attachments: Oxygen ROM/Strength ROM Lower Extremities WNL Sensory Hearing: Functional Transfers Roll Left to Right (QC): 4 Sit to Lying (QC): 4 Lying to Sitting/Side of Bed(Q: 4 Sit to Stand (QC): 4 Chair/Skg-kc-Vknsr Xfer(QC): 4 SBA for supine to sit, sit <-> stand and transfers CGA, cues for positioning and safety Gait Distance: 5' Gait Assistive Device: FWW Comments/Gait Description CGA, slow but steady ambulation Balance Sitting Static: Normal Sitting Dynamic: Normal Standing Static: Good Standing Dynamic: Good Treatment BLE seated exercises x20 (AP, LAQ) Assessment/Needs Patient in recliner post tx with nurse call, phone, tray, all needs met. Delfino swartz has impaired mobility but just needs CGA for transfers and short ambulation. Rehab Potential: Fair PT Commercial Green Building Architect Goals Commercial Green Building Architect Goals PT Commercial Green Building Architect Goals Time Frame: Jul 15, 2022 Roll Left & Right (QC): 6 Sit to Lying (QC): 6 Lying-Sitting on Side/Bed(QC): 6 Sit to Stand (QC): 4 (SBA) Chair/Dto-lj-Tshbb Xfer(QC): 4 (SBA) Walk 10 feet (QC): 4 (SBA) Walk 50ft with 2 Turns (QC): 4 (SBA) PT Plan Problem List Problem List: Activity Tolerance, Functional Strength, Safety, Balance, Gait, Transfer, Bed Mobility, ROM Treatment/Plan Treatment Plan: Continue Plan of Care Treatment Plan: Bed Mobility, Education, Functional Activity Pancho, Functional Strength, Gait, Safety, Therapeutic Exercise, Transfers Treatment Duration: Jul 15, 2022 Frequency: 6 times per week Estimated Hrs Per Day: .25 hour per day Patient and/or Family Agrees t: Yes Safety Risks/Education Patient Education: Gait Training, Transfer Techniques, Correct Positioning, Safety Issues Teaching Recipient: Patient Teaching Methods: Demonstration, Discussion Response to Teaching: Reinforcement Needed Discharge Recommendations Plan Patient will perform bed mobility and transfer training, balance and endurance training, functional strengthening, gait training, and education to improve functional mobility Therapy Discharge Recommendati: Other, See Comments (NH) Time Time In: 1521 Time Out: 1534 DATE: Jul 08, 2022 Total Billed Treatment Time: 13 Total Billed Treatment 1 visit EVM 13' KRTEK,JUAN PT Jul 08, 2022 15:46
[2022-07-08] MEDS ORDERED: CETI10CA PO (17:55)
[2022-07-08] MEDS ORDERED: CALC-250 PO (17:55)
[2022-07-08 19:14] VITALS: BP 154/78
[2022-07-08] MEDS: ENOXAPARIN 40 MG/0.4 ML (LOVENOX) SYR SC SCH (21:13)
[2022-07-08] MEDS: FUROSEMIDE 40 MG/4 ML INJ (LASIX) IV SCH (21:13)
[2022-07-08] MEDS ORDERED: MELATONIN 3 MG TABLET PO SCH (22:00)
[2022-07-08] MEDS ORDERED: APIXABAN 5 MG (ELIQUIS) TABLET PO SCH (22:00)
[2022-07-08] MEDS ORDERED: doxAzosin 2 MG (CARDURA) TAB PO SCH (22:00)
[2022-07-08] MEDS: DIVALPROEX 250 MG DELAYED RELEASE (DEPAKOTE) TAB PO SCH (22:50)
[2022-07-08] MEDS: meTOprolol TARTRATE 50 MG (LOPRESSOR) TAB PO SCH (22:50)
[2022-07-08] MEDS: GABAPENTIN 100 MG (NEURONTIN) CAP PO SCH (22:52)
[2022-07-09] VITALS: BP 150/61
[2022-07-09 04:00] VITALS: BP 121/71
[2022-07-09 07:48] VITALS: BP 141/76
[2022-07-09] MEDS ORDERED: UMECLIDINIUM BROMIDE (INCRUSE ELLIPTA) 7'S IH SCH (08:00)
[2022-07-09] MEDS ORDERED: RT--FLUTICASONE/SALMETEROL 232-14 (AIRDUO RespiCLICK) IH SCH (08:00)
[2022-07-09] MEDS: DIVALPROEX 250 MG DELAYED RELEASE (DEPAKOTE) TAB PO SCH ×2 (08:25→12:31)
[2022-07-09] MEDS: meTOprolol TARTRATE 50 MG (LOPRESSOR) TAB PO SCH (08:26)
[2022-07-09] MEDS: FUROSEMIDE 40 MG/4 ML INJ (LASIX) IV SCH (08:27)
[2022-07-09] MEDS: GABAPENTIN 100 MG (NEURONTIN) CAP PO SCH ×2 (08:29→12:31)
[2022-07-09] MEDS: ENOXAPARIN 40 MG/0.4 ML (LOVENOX) SYR SC SCH (08:37)
[2022-07-09] MEDS ORDERED: ASPIRIN E.C. 81 MG (ECOTRIN) TAB PO SCH (09:00)
[2022-07-09] MEDS ORDERED: DULoxetine 30 MG (CYMBALTA) CAP PO SCH (09:00)
[2022-07-09] MEDS ORDERED: LORATADINE (CLARITIN) 10 MG TAB PO SCH (09:00)
[2022-07-09] MEDS ORDERED: FUROSEMIDE 20 MG (LASIX) TAB PO SCH ×2 (09:00)
[2022-07-09] MEDS ORDERED: VITAMIN D3 125 MCG (5,000 UNITS) CAPSULE PO SCH (09:00)
[2022-07-09] MEDS ORDERED: TAMSULOSIN 0.4 MG (FLOMAX) CAP PO SCH (09:00)
[2022-07-09] MEDS ORDERED: amLODIPine 10 MG (NORVASC) TAB PO SCH (09:00)
[2022-07-09 10:14] LABS: HEMATOCRIT 29 % (40-54); HEMOGLOBIN 8.5 g/dL (13.3-17.7); MEAN CORPUSCULAR HGB CONC 29 g/dL (32-36)
[2022-07-09 10:16] LABS: MEAN CORPUSCULAR HEMOGLOBIN 26 pg (25-34); MEAN CORPUSCULAR VOLUME 91 fL (80-99); PLATELET COUNT 162 10^3/uL (130-400)
[2022-07-09 10:31] LABS: POTASSIUM 4.7 MMOL/L (3.6-5.0)
[2022-07-09 10:33] LABS: CALCIUM 8.3 MG/DL (8.5-10.1)
[2022-07-09 10:37] LABS: CREATININE SERUM 1.52 MG/DL (0.60-1.30)
[2022-07-09 11:04] VITALS: BP 156/70
--- NOTE | 2022-07-09 11:48 | Consultation-Cardiology ---
HPI-Cardiology Cardiology Consultation Date of Consultation 07/09/22 Date of Admission Time Seen by Provider: 11:43 Indication: Congestive heart failure HPI 57-year-old gentleman with history of congestive heart failure. He [place] [facility]. Patient was [place] [facility] the [facility] due to bradycardia and hypoxemia, has been having increasing fatigue and shortness of breath. Denied any chest pain. No palpitation. No syncope or near syncopal episodes. Home Medications & Allergies Allergies: Coded Allergies: penicillin V (Unverified Allergy, Unknown, 10/01/08) erythromycin base (Unverified Adverse Reaction, Mild, VOMITING, 03/18/13) Home Medication List Reviewed: Yes AQF-Jdvokm-Zwtfbl Hx Patient Social History Employed/Student: retired Smoking Status: Former Smoker Type Used: Cigarettes 2nd Hand Smoke Exposure: No Recent Hopitalizations: No Have you traveled recently?: No Alcohol Use?: No Immunizations Up To Date Date of Pneumonia Vaccine: Mar 20, 2013 Date of Influenza Vaccine: Apr 09, 2022 Past Medical History Discussed below Family Medical History Significant Family History: Heart Disease, Diabetes, Hypertension Family History: Cardiovascular disease 19 MOTHER G8 BROTHER Colon cancer 19 MOTHER Completed stroke 19 FATHER Dementia 19 FATHER Diabetes mellitus 19 MOTHER FHx: macular degeneration 19 FATHER Myocardial infarction 19 MOTHER Review of Systems-General Review of Systems Constitutional: No chills, No fever; malaise, weakness EENTM: no symptoms reported Respiratory: see HPI, cough, short of breath Cardiovascular: no symptoms reported, see HPI Gastrointestinal: no symptoms reported, see HPI Genitourinary: no symptoms reported, see HPI Musculoskeletal: no symptoms reported, see HPI Skin: no symptoms reported, see HPI Psychiatric/Neurological: No Symptoms Reported, See HPI All Other Systems Reviewed Negative Unless Noted: Yes Reviewed Test Results Reviewed Test Results Lab Laboratory Tests Test 07/08/22 20:41 07/09/22 06:20 07/09/22 10:08 07/09/22 11:00 Range/Units Glucometer 137 H 101 113 H 70-110 MG/DL White Blood Count 7.0 4.3-11.0 10^3/uL Red Blood Count 3.22 L 4.30-5.52 10^6/uL Hemoglobin 8.5 L 13.3-17.7 g/dL Hematocrit 29 L 40-54 % Mean Corpuscular Volume 91 80-99 fL Mean Corpuscular Hemoglobin 26 25-34 pg Mean Corpuscular Hemoglobin Concent 29 L 32-36 g/dL Red Cell Distribution Width 21.2 H 10.0-14.5 % Platelet Count 162 130-400 10^3/uL Mean Platelet Volume 9.0-12.2 fL Percent Immature Platelet Fraction 8.1 H 0.0-7.6 % Sodium Level 143 135-145 MMOL/L Potassium Level 4.7 3.6-5.0 MMOL/L Chloride Level 106 98-107 MMOL/L Carbon Dioxide Level 28 21-32 MMOL/L Anion Gap 9 5-14 MMOL/L Blood Urea Nitrogen 23 H 7-18 MG/DL Creatinine 1.52 H 0.60-1.30 MG/DL Estimat Glomerular Filtration Rate 53 BUN/Creatinine Ratio 15 Glucose Level 146 H 70-105 MG/DL Calcium Level 8.3 L 8.5-10.1 MG/DL Physical Exam Physical Exam Vital Signs Vital Signs - First Documented 07/08/22 09:56 Temp 35.8 Pulse 48 Resp 18 B/P (MAP) 116/50 (72) Pulse Ox 100 O2 Delivery Nasal Cannula O2 Flow Rate 2.00 Capillary Refill : Height, Weight, BMI Height: 6'2" Weight: 250lbs. 0.0oz. 113.012011qu; 46.87 BMI Method:Estimated General Appearance: No Apparent Distress, Chronically ill, Obese HEENT: PERRL/EOMI, Moist Mucous Membranes; No Scleral Icterus (L), No Scleral Icterus (R) Neck: Normal Inspection, Supple Respiratory: Lungs Clear, No Accessory Muscle Use, No Respiratory Distress, Other (satting 100% on 2lpm- I turned off at bedside) Cardiovascular: Regular Rate, Rhythm, Systolic Murmur Gastrointestinal: Normal Bowel Sounds, Non Tender, Soft Back: No CVA Tenderness, No Vertebral Tenderness Extremity: Normal Capillary Refill, No Calf Tenderness, Pedal Edema, Other (venous stasis changes) Neurologic/Psychiatric: Alert, Oriented x3 Skin: Normal Color, Warm/Dry A/P-Cardiology Admission Diagnosis Acute respiratory failure Hyperkalemia Bradycardia Congestive heart failure, acute on chronic left ventricular diastolic dysfunction Assessment/Plan Acute on chronic respiratory failure Currently feeling better, reporting improvement. Continue to monitor Sinus node dysfunction, severe bradycardia. Has been maintained on metoprolol 100 mg twice daily and he was tolerating it well in the past. We will hold for now and monitor heart rate and blood pressure Acute exacerbation of COPD with hypercapnic respiratory failure Multiple hospitalization for respiratory failure. Continue to monitor 2D echo was done on April 18, 2022 showing normal LV size with ejection fraction 50 to 55%, PA pressure 40 mmHg, biatrial dilatation otherwise no significant abnormality Coronary artery disease, cardiac catheterization in 2014 showed mild disease nonobstructive disease. 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 Peripheral angiogram was done on February 06, 2022 showing mild peripheral arterial disease nonobstructive disease. Chronic hyperkalemia. Intolerant to MARY JANE inhibitor and/or ARB Paroxysmal atrial fibrillation, in and out of atrial fibrillation On the admission in April 2022 patient was in sinus rhythm Currently in atrial fibrillation with bradycardia. Discontinue metoprolol and monitor Hypertension with hypertensive heart disease and diastolic dysfunction Currently I will stop metoprolol and amlodipine Intolerant to MARY JANE inhibitor and/or ARB due to renal failure and persistent hyperkalemia We will continue with hydrochlorothiazide, hydralazine and monitor tolerance and response Chronic kidney disease stage III continue to monitor renal function Diabetes mellitus, followed and managed by primary care physician History of CVA in 2015, seizure disorder. History of right upper extremity venous thrombosis after central line placement. Bipolar disorder. Hyperlipidemia, intolerant to statin. TIMUR HAWKINS MD Jul 09, 2022 11:48
--- NOTE | 2022-07-09 12:06 | Physical Therapy Progress Note ---
Therapy Progress Note Pt declined to participate this date. Reports he has already been up to the chair this morning. "I didn't sleep last night and I just need rest". BRENDA CARPENTER DPT Jul 09, 2022 12:06
--- NOTE | 2022-07-09 12:42 | Discharge Inst-Simple/Standard ---
Discharge Inst-Standard Patient Instructions/Follow Up Plan of Care/Instructions/FU: Please continue to take your medications as written. Please follow up with your primary care doctor to follow up this hospital stay. Activity as Tolerated: Yes Discharge Diet: Cardiac Diet Return to The Hospital For: Chest apin, shortness of breath, fever, weakness, low oxygen, if you feel you are getting worse. ANA MCGUIRE MD Jul 09, 2022 12:41 pm
--- NOTE | 2022-07-09 13:29 | Discharge Summary ---
Diagnosis/Chief Complaint Date of Admission Jul 08, 2022 at 2:14 pm Date of Discharge Discharge Date: Jul 09, 2022 Admission Diagnosis CHF exacerbation Primary Care Stanislav Nunez MD Discharge Diagnosis (1) Acute on chronic congestive heart failure Status: Acute Discharge Summary Discharge Physical Exam Allergies: Coded Allergies: penicillin V (Unverified Allergy, Unknown, 10/01/08) erythromycin base (Unverified Adverse Reaction, Mild, VOMITING, 03/18/13) Vitals & I&Os Vital Signs Date Time Temp Pulse Resp B/P (MAP) Pulse Ox O2 Delivery O2 Flow Rate FiO2 07/09/22 11:04 36.4 50 18 156/70 (98) 100 Nasal Cannula 2.00 General Appearance: No Apparent Distress, Chronically ill, Obese Respiratory: Lungs Clear, No Respiratory Distress Cardiovascular: Regular Rate, Rhythm, No Murmur Neurologic/Psychiatric: Alert, Oriented x3 Hospital Course Patient was admitted to the hospital secondary to acutely decompensated heart failure. He was seen in cardiac consult by cardiology. He was treated with IV Lasix and did well. He does wear 2 L of oxygen at baseline and he was actually able to be titrated off except for when he slept. He was back to his baseline and was able to be [facility] in stable and improved condition to follow-up with his primary care physician, Dr. Nunez and his primary print developer automatic, Dr. Kurtz. He did have some mild bradycardia so his metoprolol was discontinued. Labs (last 24 hrs) Laboratory Tests 07/08/22 20:41: Glucometer 137H 07/09/22 06:20: Glucometer 101 07/09/22 10:08: White Blood Count 7.0, Red Blood Count 3.22L, Hemoglobin 8.5L, Hematocrit 29L, Mean Corpuscular Volume 91, Mean Corpuscular Hemoglobin 26, Mean Corpuscular Hemoglobin Concent 29L, Red Cell Distribution Width 21.2H, Platelet Count 162, Mean Platelet Volume , Percent Immature Platelet Fraction 8.1H, Sodium Level 143, Potassium Level 4.7, Chloride Level 106, Carbon Dioxide Level 28, Anion Gap 9, Blood Urea Nitrogen 23H, Creatinine 1.52H, Estimat Glomerular Filtration Rate 53, BUN/Creatinine Ratio 15, Glucose Level 146H, Calcium Level 8.3L 07/09/22 11:00: Glucometer 113H Patient resulted labs reviewed. Pending Labs Laboratory Tests 07/09/22 06:20: Glucometer 101 07/09/22 10:08: White Blood Count 7.0, Red Blood Count 3.22, Hemoglobin 8.5, Hematocrit 29, Mean Corpuscular Volume 91, Mean Corpuscular Hemoglobin 26, Mean Corpuscular Hemoglobin Concent 29, Red Cell Distribution Width 21.2, Platelet Count 162, Mean Platelet Volume , Percent Immature Platelet Fraction 8.1, Sodium Level 143, Potassium Level 4.7, Chloride Level 106, Carbon Dioxide Level 28, Anion Gap 9, Blood Urea Nitrogen 23, Creatinine 1.52, Estimat Glomerular Filtration Rate 53, BUN/Creatinine Ratio 15, Glucose Level 146, Calcium Level 8.3 07/09/22 11:00: Glucometer 113 Imaging: Reviewed Imaging Report Discussion & Recommendations Discharge Planning: >30 minutes discharge planning Discharge Home Medications: Active Scripts Active Reported Vitamin D3 (Cholecalciferol (Vitamin D3)) 125 Mcg (5000 Unit) Tablet 125 Mcg PO DAILY Zyrtec (Cetirizine HCl) 10 Mg Capsule 10 Mg PO DAILY Calcium Carbonate 500 Mg Calcium (1250 Mg) Tablet 500 Mg PO Q8H PRN Acidophilus (Lactobacillus Acidophilus) 1 Each Tab.chew 1 Each PO BID Diclofenac Sodium 1 % Gel..gram. 1 Applic TP Q4H PRN Simethicone 125 Mg Capsule 125 Mg PO Q8H PRN Atorvastatin Calcium 80 Mg Tablet 80 Mg PO HS Duloxetine HCl 30 Mg Capsule.dr 30 Mg PO DAILY Lantus Solostar (Insulin Glargine,Hum.rec.anlog) 100 Unit/Ml (3 Ml) Insuln.pen 25 Unit SQ BID Gabapentin 100 Mg Capsule 200 Mg PO 0800,1200,2000 TAKES 2 (100MG) CAPS Humalog Kwikpen (Insulin Lispro) 200 Unit/Ml (3 Ml) Insuln.pen 20 Unit SQ AC Doxazosin Mesylate 2 Mg Tablet 2 Mg PO HS Tramadol HCl 50 Mg Tablet 50 Mg PO Q8HR PRN Symbicort 160-4.5 Mcg Inhaler (Budesonide/Formoterol Fumarate) 160 Mcg-4.5 Mcg/Actuation Hfa.aer.ad 2 Puff IH BID Flintstones Complete Chew Tab (Ped Multivit #43/Iron Fumarate) 18 Mg Iron Tab.chew 18 Mg PO DAILY Jardiance (Empagliflozin) 25 Mg Tablet 25 Mg PO DAILY Ondansetron Odt (Ondansetron) 4 Mg Tab.rapdis 4 Mg PO Q8H PRN Tylenol (Acetaminophen) 325 Mg Tablet 650 Mg PO Q6H PRN Guaifenesin-Dm 100-10 mg/5 ml (Guaifenesin/Dextromethorphan) 5 Ml Liquid 10 Ml PO Q4H PRN Miralax (Polyethylene Glycol 3350) 17 Gm Powd.pack 17 Gm PO Q12H PRN Meclizine HCl 25 Mg Tablet 25 Mg PO DAILY PRN Docusate Sodium 100 Mg Capsule 100 Mg PO DAILY PRN Loperamide (Loperamide HCl) 2 Mg Tablet 2 Mg PO Q1H PRN MDD 8MG Albuterol Sulfate 2.5 Mg/0.5 Ml Vial.neb 2.5 Mg INH Q8H PRN Metoprolol Tartrate 100 Mg Tablet 100 Mg PO BID HOLD IF PULSE IS LESS THAN 50 AND IF BLOOD PRESSURE LESS THAN 100/50 Melatonin 3 Mg Tablet 3 Mg PO HS Aspirin EC (Aspirin) 81 Mg Tablet.dr 81 Mg PO DAILY Amlodipine Besylate 10 Mg Tablet 10 Mg PO DAILY HOLD FOR PULSE <50 AND BP <100/50 Flomax (Tamsulosin HCl) 0.4 Mg Cap 0.4 Mg PO DAILY Spiriva Respimat 1.25MCG/ACTUATION (Tiotropium [place]) 4 Gm Mist.inhal 2 Puff IH DAILY Furosemide 20 Mg Tablet 60 Mg PO DAILY TAKES 3 (20MG) TABLETS Alphagan P (Brimonidine Tartrate) 5 Ml Drops 1 Drop OU BID Eliquis (Apixaban) 5 Mg Tablet 5 Mg PO BID Aripiprazole 10 Mg Tablet 10 Mg PO DAILY Divalproex Sodium 250 Mg Tablet.dr 250 Mg PO TID Instructions to patient/family Please see electronic discharge instructions given to patient. Problem Qualifiers (1) Acute on chronic congestive heart failure: Heart failure type: unspecified Qualified Codes: I50.9 - Heart failure, unspecified ANA MCGUIRE MD Jul 09, 2022 1:29 pm
[2022-07-09] MEDS ORDERED: hydrALAZINE (APRESOLINE) 25 MG TAB PO SCH (14:00)
[2022-07-09 16:29] VITALS: BP 165/82
[2022-07-09] MEDS ORDERED: doxAzosin 4 MG (CARDURA) TAB PO SCH (21:00)
== END 2022-07-09 13:28 ==
LOC: EDUNIT# 09:52 → ER 09:53 → 4TH 14:14 → UNDOADMOB 14:14 → 4TH 15:00 → UNDODISOB 07-09 13:28
PROVIDERS: ADMIT Family Medicine; ATTEND Family Medicine
DX: I13.0 Hypertensive heart and chronic kidney disease with heart failure and stage 1 through stage 4 chronic kidney disease, or unspecified chronic kidney disease (principal); N18.31 Chronic kidney disease, stage 3a; E11.22 Type 2 diabetes mellitus with diabetic chronic kidney disease; I48.0 Paroxysmal atrial fibrillation; N40.0 Benign prostatic hyperplasia without lower urinary tract symptoms; E66.01 Morbid (severe) obesity due to excess calories; F31.9 Bipolar disorder, unspecified; I50.33 Acute on chronic diastolic (congestive) heart failure; E87.5 Hyperkalemia; J96.02 Acute respiratory failure with hypercapnia; J44.1 Chronic obstructive pulmonary disease with (acute) exacerbation; I25.10 Atherosclerotic heart disease of native coronary artery without angina pectoris; E78.5 Hyperlipidemia, unspecified; Z89.421 Acquired absence of other right toe(s); Z87.891 Personal history of nicotine dependence; Z86.73 Personal history of transient ischemic attack (TIA), and cerebral infarction without residual deficits; Z86.718 Personal history of other venous thrombosis and embolism; Z68.42 Body mass index [BMI] 45.0-49.9, adult; Z79.4 Long term (current) use of insulin; Z79.899 Other long term (current) drug therapy
CPT/HCPCS: 36415; 71045; 71250; 80048; 80053; 81000; 82947; 83735; 83880; 84145; 84443; 84484; 85025; 85027; 86141; 93005; 93041; 94640; 94760; 96374; 96376; G0378

== ENCOUNTER → 2022-07-12 | Outpatient (CLI) | payer MEDICARE, MEDICAID ==
[~2022-07-12] MED LIST changes: +CALC-250 PO; +CETI10CA PO
== END ==
LOC: WOUNDCARE 08:14
PROVIDERS: ATTEND Family Medicine
DX: E11.621 Type 2 diabetes mellitus with foot ulcer (principal); E11.65 Type 2 diabetes mellitus with hyperglycemia; E11.40 Type 2 diabetes mellitus with diabetic neuropathy, unspecified; E11.52 Type 2 diabetes mellitus with diabetic peripheral angiopathy with gangrene; E66.01 Morbid (severe) obesity due to excess calories; L97.512 Non-pressure chronic ulcer of other part of right foot with fat layer exposed; I70.235 Atherosclerosis of native arteries of right leg with ulceration of other part of foot; N18.32 Chronic kidney disease, stage 3b; I89.0 Lymphedema, not elsewhere classified; D63.1 Anemia in chronic kidney disease; E55.9 Vitamin D deficiency, unspecified; I96 Gangrene, not elsewhere classified; M62.81 Muscle weakness (generalized); F17.218 Nicotine dependence, cigarettes, with other nicotine-induced disorders; Z68.42 Body mass index [BMI] 45.0-49.9, adult
CPT/HCPCS: 11042

== ENCOUNTER → 2022-07-18 | Outpatient (CLI) | payer MEDICARE, MEDICAID | LOC: WOUNDCARE 08:31 | PROVIDERS: ATTEND Family Medicine | DX: L97.512 Non-pressure chronic ulcer of other part of right foot with fat layer exposed (principal); T87.89 Other complications of amputation stump; E11.621 Type 2 diabetes mellitus with foot ulcer; E11.65 Type 2 diabetes mellitus with hyperglycemia; E11.40 Type 2 diabetes mellitus with diabetic neuropathy, unspecified; E66.01 Morbid (severe) obesity due to excess calories; M62.81 Muscle weakness (generalized); I70.235 Atherosclerosis of native arteries of right leg with ulceration of other part of foot; N18.32 Chronic kidney disease, stage 3b; I89.0 Lymphedema, not elsewhere classified; D63.1 Anemia in chronic kidney disease; E55.9 Vitamin D deficiency, unspecified; F17.218 Nicotine dependence, cigarettes, with other nicotine-induced disorders; E11.52 Type 2 diabetes mellitus with diabetic peripheral angiopathy with gangrene | CPT/HCPCS: 11042 ==

== ENCOUNTER 2022-11-30 21:37 | Inpatient (IN) | payer MEDICARE, MEDICAID ==
[~2022-11-30] VITALS: Ht 193 cm; Wt 164.8 kg
[~2022-11-30 21:37] MED LIST changes: -INSU100I29 SQ; +INSU100I30 SQ; -POTA10CA43 PO; +POTA10CA44 PO; -TBR.3OP51 OU; +TOBR5DRO11 OU
[2022-11-30] MEDS ORDERED: ASPIRIN 81 MG CHEW (CHILDREN'S ASA) PO ONE (21:45)
[2022-11-30] MEDS ORDERED: NITROGLYCERIN 0.4 MG SL TABS BTL 25'S SL PRN (21:45)
[2022-11-30] MEDS ORDERED: NITROGLYCERIN 2% OINT 1 GM UNIT DOSE PACKET TOP STA (21:54)
[2022-11-30] MEDS ORDERED: methylPREDNISolone 125 MG (Solu-MEDROL) VIAL IV STA (21:54)
[2022-11-30 21:56] LABS: BASOPHILS # (AUTO) 0.1 10^3/uL (0.0-0.1); BASOPHILS % (AUTO) 1 % (0-10); EOSINOPHILS # (AUTO) 0.2 10^3/uL (0.0-0.3); EOSINOPHILS % (AUTO) 2 % (0-10); HEMATOCRIT 31 % (40-54); HEMOGLOBIN 9.1 g/dL (13.3-17.7); LYMPHOCYTES # (AUTO) 1.3 10^3/uL (1.0-4.0); LYMPHOCYTES % (AUTO) 14 % (12-44); MEAN CORPUSCULAR HEMOGLOBIN 27 pg (25-34); MEAN CORPUSCULAR HGB CONC 30 g/dL (32-36); MEAN CORPUSCULAR VOLUME 91 fL (80-99); MONOCYTES # (AUTO) 0.9 10^3/uL (0.0-1.0); MONOCYTES % (AUTO) 9 % (0-12); NEUTROPHILS # (AUTO) 6.8 10^3/uL (1.8-7.8); NEUTROPHILS % (AUTO) 73 % (42-75); PLATELET COUNT 265 10^3/uL (130-400); WHITE BLOOD COUNT 9.4 10^3/uL (4.3-11.0)
[2022-11-30] MEDS ORDERED: LIDOCAINE UROJET 2% GEL 10 ML PKG ONE (21:57)
[2022-11-30] MEDS ORDERED: NITROGLYCERIN 2% OINT 1 GM UNIT DOSE PACKET ONE (21:57)
[2022-11-30] MEDS ORDERED: RT-ALBUTEROL/IPRATROPIUM 3 ML (DUONEB) VIAL INH ONE (22:00)
[2022-11-30 22:07] LABS: ALBUMIN 3.7 GM/DL (3.2-4.5)
[2022-11-30 22:08] LABS: CHLORIDE 109 MMOL/L (98-107); INR 1.1 (0.8-1.4); POTASSIUM 4.8 MMOL/L (3.6-5.0); PROTHROMBIN TIME PATIENT 14.4 SEC (12.2-14.7); SODIUM 146 MMOL/L (135-145)
[2022-11-30 22:09] LABS: AMYLASE 45 U/L (25-125); CALCIUM 9.2 MG/DL (8.5-10.1)
[2022-11-30 22:10] LABS: FIBRIN DEGRADATION PRODUCTS 0.87 UG/ML (0.00-0.49); GLUCOSE 115 MG/DL (70-105); TOTAL PROTEIN 7.6 GM/DL (6.4-8.2)
[2022-11-30 22:11] LABS: CARBON DIOXIDE 26 MMOL/L (21-32)
[2022-11-30 22:12] LABS: BILIRUBIN,TOTAL 0.5 MG/DL (0.1-1.0)
[2022-11-30 22:13] LABS: ALKALINE PHOSPHATASE 55 U/L (40-136)
[2022-11-30 22:14] LABS: CREATININE SERUM 1.72 MG/DL (0.60-1.30); GFR ESTIMATED 46
[2022-11-30 22:15] LABS: BUN/CREATININE RATIO 11
[2022-11-30] MEDS ORDERED: LIDOCAINE UROJET 2% GEL 10 ML PKG TOP ONE (22:15)
[2022-11-30 22:16] LABS: MAGNESIUM 2.4 MG/DL (1.6-2.4)
[2022-11-30 22:17] LABS: ALANINE AMINOTRANSFERASE 11 U/L (0-55); LIPASE 16 U/L (8-78)
[2022-11-30 22:18] LABS: CREATINE KINASE 468 U/L (30-200)
[2022-11-30 22:24] LABS: CREATINE KINASE MB 4.8 NG/ML (<6.6)
[2022-11-30] MEDS ORDERED: hydrALAZINE (APESOLINE) 20 MG/ML VIAL ONE (23:04)
[2022-11-30] MEDS ORDERED: CEFEPIME 1 GM/10 ML (MAXIPIME) VIAL ONE (23:04)
[2022-11-30] MEDS ORDERED: NS (IVPB) 50 ML ONE (23:04)
[2022-11-30] MEDS ORDERED: FUROSEMIDE 40 MG/4 ML INJ (LASIX) ONE (23:04)
[2022-11-30] MEDS ORDERED: niCARdipine IV PYXIS DRIP KIT = 50 MG X 2 VIALS ONE (23:22)
[2022-11-30] MEDS ORDERED: NS (IVPB) 250 ML ONE (23:23)
[2022-12-01] MEDS ORDERED: RT-ALBUTEROL/IPRATROPIUM 3 ML (DUONEB) VIAL ONE (06:50)
[2022-12-01] MEDS ORDERED: niCARdipine IV PYXIS DRIP KIT = 50 MG X 2 VIALS ONE (07:24)
[2022-12-01] MEDS ORDERED: NS (IVPB) 250 ML ONE (07:24)
[2022-12-01] MEDS: niCARdipine IV 50 MG in NS (IVPB) 230 ML IV SCH ×4 (07:25→16:42)
--- NOTE | 2022-12-01 07:28 | Diagnostic Imaging Report ---
INDICATION: Chest pain AP view of the chest is obtained with comparison made to the study of 07/08/2022. There has been development of bilateral airspace disease with a central predominance. No pneumothorax is seen. Heart size is at the upper limits of normal and appears improved compared to previous study. IMPRESSION: Findings suggest pulmonary edema likely on the basis of congestive heart failure, however, overall heart size is mildly decreased when compared to previous study. Dictated by: Dictated on workstation # [id number]
[2022-12-01] MEDS ORDERED: EPINEPHrine 1 MG INJECTION 4 MG in NS (IVPB) 248 ML IV SCH (07:45)
[2022-12-01] MEDS ORDERED: ONDANSETRON 4 MG/2 ML (SDV) Z0FRAN IV PRN (07:45)
[2022-12-01] MEDS ORDERED: ACETAMINOPHEN 500 MG TAB (TYLENOL) PO PRN (07:45)
[2022-12-01] MEDS ORDERED: RT-ALBUTEROL/IPRATROPIUM 3 ML (DUONEB) VIAL INH PRN (07:45)
[2022-12-01 08:00] LABS: ALBUMIN 3.6 GM/DL (3.2-4.5); BILIRUBIN,TOTAL 0.6 MG/DL (0.1-1.0); CALCIUM 9.2 MG/DL (8.5-10.1); CREATININE SERUM 1.72 MG/DL (0.60-1.30); MAGNESIUM 2.2 MG/DL (1.6-2.4); PHOSPHORUS 3.8 MG/DL (2.3-4.7); POTASSIUM 5.4 MMOL/L (3.6-5.0); TOTAL PROTEIN 7.3 GM/DL (6.4-8.2)
[2022-12-01 08:02] LABS: HEMATOCRIT 30 % (40-54); MEAN CORPUSCULAR HEMOGLOBIN 27 pg (25-34); MEAN CORPUSCULAR HGB CONC 30 g/dL (32-36); MEAN CORPUSCULAR VOLUME 91 fL (80-99); MEAN PLATELET VOLUME 13.4 fL (9.0-12.2); PLATELET COUNT 249 10^3/uL (130-400); WHITE BLOOD COUNT 10.3 10^3/uL (4.3-11.0)
[2022-12-01] MEDS: NOREPINEPHRINE 8 MG/250 ML 250 ML IV SCH ×2 (08:23→18:07)
[2022-12-01] MEDS: VASOPRESSIN INJECTION 20 UNIT in NS (IVPB) 100 ML IV SCH ×2 (08:23→19:28)
[2022-12-01 08:30] LABS: ABG OXYGEN SATURATION 100 % (94-100); ABG PCO2 50 MMHG (35-45); ABG PH 7.38 (7.37-7.43); ABG PO2 160 MMHG (79-93); ABG TCO2 30.5 MMOL/L (21.0-31.0)
[2022-12-01] MEDS ORDERED: ENOXAPARIN 150 MG/ML (LOVENOX) SYR SQ SCH (08:30)
[2022-12-01 08:31] LABS: ALLENS TEST YES-POS; INSPIRED O2 60%; PATIENT TEMP 36.3; VENTILATOR NO
[2022-12-01 08:31] LABS: ABG BASE EXCESS 4.2 MMOL/L (-2.5-2.5); ABG OXYGEN SATURATION 100 % (94-100); ABG PCO2 45 MMHG (35-45); ABG PH 7.41 (7.37-7.43); ABG PO2 144 MMHG (79-93); ABG TCO2 30.1 MMOL/L (21.0-31.0)
[2022-12-01 08:32] LABS: ALLENS TEST YES-POS; INSPIRED O2 60%; PATIENT TEMP 36.3; VENTILATOR NO
--- NOTE | 2022-12-01 08:40 | Consultation-Cardiology ---
HPI-Cardiology Cardiology Consultation Date of Consultation 12/01/22 Date of Admission Time Seen by Provider: 08:34 Indication: Dyspea, atrial flutter HPI Patient is a 57 y/o male with hx of nonobstructive CAD, Hypertensive heart disease with diastolic dysfunction, PAF, HLP, DM, obesity. Presented to the ER with complaints of increased dyspnea for the past several days. Denies any chest pain or palpitaitons. CXR showing pulmonary edema. EKG done in ER showing rate controlled atrial flutter. Patient currently on Vapotherm, reporting some improvement of his dyspnea. Home Medications & Allergies Allergies: Coded Allergies: penicillin V (Unverified Allergy, Unknown, 10/01/08) erythromycin base (Unverified Adverse Reaction, Mild, VOMITING, 03/18/13) Home Medication List Reviewed: Yes [id number]-Coziaq Hx Patient Social History Smoking Status: Former Smoker Type Used: Cigarettes 2nd Hand Smoke Exposure: No Recent Hopitalizations: No Have you traveled recently?: No Alcohol Use?: No Immunizations Up To Date Date of Pneumonia Vaccine: Mar 20, 2013 Date of Influenza Vaccine: Apr 09, 2022 Past Medical History CHF, PAF, HTN, HLP, DM, CKD Family Medical History Significant Family History: Heart Disease, Diabetes, Hypertension Family History: Cardiovascular disease 19 MOTHER G8 BROTHER Colon cancer 19 MOTHER Completed stroke 19 FATHER Dementia 19 FATHER Diabetes mellitus 19 MOTHER FHx: macular degeneration 19 FATHER Myocardial infarction 19 MOTHER Review of Systems-General Review of Systems Constitutional: see HPI, weakness EENTM: see HPI, no symptoms reported Respiratory: see HPI, cough, dyspnea on exertion, orthopnea, phlegm, short of breath Cardiovascular: see HPI, edema, syncope, vascular heart diseas Gastrointestinal: see HPI Genitourinary: see HPI Reviewed Test Results Reviewed Test Results Lab Laboratory Tests 11/30/22 21:50: White Blood Count 9.4, Red Blood Count 3.35L, Hemoglobin 9.1L, Hematocrit 31L, Mean Corpuscular Volume 91, Mean Corpuscular Hemoglobin 27, Mean Corpuscular Hemoglobin Concent 30L, Red Cell Distribution Width 16.8H, Platelet Count 265, Mean Platelet Volume 12.0, Immature Granulocyte % (Auto) 1, Neutrophils (%) (Auto) 73, Lymphocytes (%) (Auto) 14, Monocytes (%) (Auto) 9, Eosinophils (%) (Auto) 2, Basophils (%) (Auto) 1, Neutrophils # (Auto) 6.8, Lymphocytes # (Auto) 1.3, Monocytes # (Auto) 0.9, Eosinophils # (Auto) 0.2, Basophils # (Auto) 0.1, Immature Granulocyte # (Auto) 0.1, Prothrombin Time 14.4, INR Comment 1.1, Activated Partial Thromboplast Time 34, D-Dimer 0.87H, Sodium Level 146H, Potassium Level 4.8, Chloride Level 109H, Carbon Dioxide Level 26, Anion Gap 11, Blood Urea Nitrogen 19H, Creatinine 1.72H, Estimat Glomerular Filtration Rate 46, BUN/Creatinine Ratio 11, Glucose Level 115H, Calcium Level 9.2, Corrected Calcium 9.4, Magnesium Level 2.4, Total Bilirubin 0.5, Aspartate Amino Transf (AST/SGOT) 14, Alanine Aminotransferase (ALT/SGPT) 11, Alkaline Phosphatase 55, Total Creatine Kinase 468H, Creatine Kinase MB 4.8, Myoglobin 175.7H, Troponin I < 0.028, B-Type Natriuretic Peptide 113.4H, Total Protein 7.6, Albumin 3.7, Amylase Level 45, Lipase 16 11/30/22 21:53: Influenza Type A (RT-PCR) Not Detected, Influenza Type B (RT-PCR) Not Detected, SARS-CoV-2 RNA (RT-PCR) Not Detected 11/30/22 23:32: Blood Gas Puncture Site UNK, Blood Gas Patient Temperature 36.3, Arterial Blood pH 7.38, Arterial Blood Partial Pressure CO2 50H, Arterial Blood Partial Pressure O2 160H, Arterial Blood HCO3 29H, Arterial Blood Total CO2 30.5, Arterial Blood Oxygen Saturation 100, Arterial Blood Base Excess 4.0H, Martin Test YES-POS, Blood Gas Ventilator Setting NO, Blood Gas Inspired Oxygen 60% 12/01/22 01:35: Blood Gas Puncture Site RT RADIAL, Blood Gas Patient Temperature 36.3, Arterial Blood pH 7.41, Arterial Blood Partial Pressure CO2 45, Arterial Blood Partial Pr essure O2 144H, Arterial Blood HCO3 29H, Arterial Blood Total CO2 30.1, Arterial Blood Oxygen Saturation 100, Arterial Blood Base Excess 4.2H, Martin Test YES- POS, Blood Gas Ventilator Setting NO, Blood Gas Inspired Oxygen 60% 12/01/22 05:25: White Blood Count 10.3, Red Blood Count 3.31L, Hemoglobin 9.0L, Hematocrit 30L, Mean Corpuscular Volume 91, Mean Corpuscular Hemoglobin 27, Mean Corpuscular Hemoglobin Concent 30L, Red Cell Distribution Width 16.6H, Platelet Count 249, Mean Platelet Volume 13.4H, Sodium Level 146H, Potassium Level 5.4H, Chloride Level 109H, Carbon Dioxide Level 26, Anion Gap 11, Blood Urea Nitrogen 22H, Creatinine 1.72H, Estimat Glomerular Filtration Rate 46, BUN/Creatinine Ratio 13, Glucose Level 176H, Calcium Level 9.2, Corrected Calcium 9.5, Phosphorus Level 3.8, Magnesium Level 2.2, Total Bilirubin 0.6, Aspartate Amino Transf (AST/SGOT) 12, Alanine Aminotransferase (ALT/SGPT) 9, Alkaline Phosphatase 51, Total Protein 7.3, Albumin 3.6, Triglycerides Level 52, Cholesterol Level 132, LDL Cholesterol Direct 52, VLDL Cholesterol 10, HDL Cholesterol 56 12/01/22 05:55: Glucometer 168H 12/01/22 08:09: Lactic Acid Level 0.84, Troponin I < 0.028 ECG Impression ECG Initial ECG Rhythm: A Fib/Flutter Physical Exam Physical Exam Vital Signs Vital Signs - First Documented 11/30/22 11/30/22 12/01/22 21:42 22:35 00:09 Temp 36.0 Pulse 52 Resp 13 B/P (MAP) 204/107 (139) Pulse Ox 95 O2 Delivery Nasal Cannula O2 Flow Rate 2.00 FiO2 60 Capillary Refill : Less Than 3 Seconds Height, Weight, BMI Height: 6'2" Weight: 250lbs. 0.0oz. [id number]; 46.09 BMI Method:Estimated General Appearance: WD/WN, Mild Distress HEENT: PERRL/EOMI, Normal ENT Inspection Neck: Non Tender, Supple Respiratory: Rhonci Cardiovascular: No Gallop, No Murmur, Normal Peripheral Pulses, Irregularly Irregular Gastrointestinal: Non Tender, Soft Back: No CVA Tenderness Extremity: Pedal Edema Neurologic/Psychiatric: Alert, Oriented x3 A/P-Cardiology Admission Diagnosis Acute respiratory failure CHF Atrial flutter HTN Assessment/Plan Acute on chronic respiratory failure, likely multifactorial. Currently on vapotherm. CXR findings suggest pulmonary edema likely on the basis of congestive heart failure. Will continue to diurese, continue to monitor. Atrial flutter, hx of PAF, has been maintained on Eliquis as outpatient. EKG showing rate controlled atrial flutter, I will start patient on Lovenox, planning for JULIO with cardioversion with Dr. Dolan/ Laith in the morning. Hyperkalemia, K+ 5.4. Hx of hyperkalemia. Patient receiving Lasix this morning. Will continue to monitor closely. Coronary artery disease, cardiac catheterization was carried out in September [address] Dolan showing mild coronary artery disease with normal LV function. CHF, Left ventricular diastolic dysfunction. 2D echocardiogram was done on February 07, 2022 showing normal LV size and function ejection fraction 60%, difficult study due to patient body habitus. Hypertension, hypertensive heart disease with left ventricular diastolic dysfunction, restart home blood pressure medications and continue to monitor. Chronic kidney disease, continue to monitor renal function. History of right foot osteomyelitis. Ultrasound was done on February 04, 2022 suggestive marked velocity elevation in the mid SFA, suggestive of severe stenosis. Peripheral angiogram was done on February 06, 2022 showing mild peripheral arterial disease nonobstructive disease. Underwent amputation with debridement with Dr. De on February 09, 2022 Diabetes mellitus, followed and managed by primary care physician Hx of CVA in 2014 History of seizure disorder. History of peripheral neuropathy History of right upper extremity venous thrombosis after central line placement Bipolar disorder Fibromyalgia Hyperlipidemia with intolerance to statin. Continue to monitor Thank you for allowing us to participate in the management of Mr. Josue. This is Khalida Hodges PA-C, as a scribe for Dr. Kurtz Patient was seen and evaluated with Khalida, I interviewed and examined the patient. He still having shortness of breath. Started on Lasix We will start her on Lovenox and planning for electrical cardioversion and JULIO in the morning Monitor heart rate and blood pressure Last echo showed normal LV function with EF 60% Clinical Quality Measures AMI/AHF: ASA po Prior to arrival: No KHALIDA DOBBINS December 01, 2022 08:40 TIMUR KURTZ MD December 01, 2022 08:55
[2022-12-01] MEDS ORDERED: AZITHROMYCIN 250 MG/NS 250 ML IVPB IV SCH ×2 (09:00)
[2022-12-01] MEDS ORDERED: ENOXAPARIN 300 MG/3 ML (LOVENOX) MULTI-DOSE VIAL SQ SCH (09:00)
[2022-12-01] MEDS ORDERED: cefTRIAXone 1 GM/NS 50 ML IVPB IV SCH ×2 (09:00)
[2022-12-01] MEDS: FUROSEMIDE 40 MG/4 ML INJ (LASIX) IVP SCH ×2 (09:40→17:00)
[2022-12-01] MEDS: ASPIRIN E.C. 81 MG (ECOTRIN) TAB PO SCH (09:40)
[2022-12-01] MEDS ORDERED: DAPA10TA PO (10:11)
[2022-12-01] MEDS ORDERED: ASPI-999 PO (10:11)
[2022-12-01] MEDS: RT-ALBUTEROL/IPRATROPIUM 3 ML (DUONEB) VIAL INH SCH ×4 (10:11→23:26)
[2022-12-01] MEDS ORDERED: FURO40TA4 PO ×2 (10:11)
[2022-12-01] MEDS ORDERED: DULO60CA59 PO (10:11)
[2022-12-01] MEDS ORDERED: NITR-65 PO (10:12)
[2022-12-01] MEDS ORDERED: DULA1.5P2 SQ (10:16)
[2022-12-01] MEDS ORDERED: DIVA250T12 PO (10:21)
[2022-12-01] MEDS: inSUlin ASPART (NovoLOG) 1 UNIT/0.01 ML (CHARGE PER UNIT) SC SCH ×3 (10:38→20:41)
[2022-12-01] MEDS: NITROGLYCERIN 2% OINT 1 GM UNIT DOSE PACKET TOP SCH ×3 (12:08→23:58)
--- NOTE | 2022-12-01 13:04 | History & Physical-Hospitalist ---
[facility]4: History of Present Illness HPI/Chief Complaint Elie Josue is a 57y M with PMH CAD, HTN, afib, HLD, DM and COPD on continuous 2L oxygen. [facility] with CP and SOB for 1 day. Describes CP as pressure in middle of chest that radiated to back, improved with receiving NTG in ER. SOB occured while lying down in bed and reports feeling like he could not catch his breath. He was wearing his continuous O2 and tried to turn it up but it did not help. Notes he has not had any recent illnesses. He has had increased swelling in his ankles bilaterally recently. Patient quit smoking 6-8 weeks ago after being diagnosed with COPD. Source: patient Exam Limitations: no limitations Date Seen 12/01/22 Time Seen by a Provider: 08:20 Attending Physician Stanislav Nunez MD PCP Admitting Physician: Gail Zeng DO Attending Physician: Gualberto Rojas MD Referring Physician Date of Admission November 30, 2022 at 23:53 Home Medications & Allergies Home Medications Reviewed patient Home Medication Reconciliation performed by pharmacy medication reconciliations hvac maintenance technician and/or nursing. Patients Allergies have been reviewed. Allergies Allergies Coded Allergies penicillin V (Unverified Allergy, Unknown, 10/01/08) erythromycin base (Unverified Adverse Reaction, Mild, VOMITING, 03/18/13) Past Uvvpsdc-Yxfozu-Ugthrn Hx Patient Social History Tobacco Use?: No Smoking Status: Former Smoker Use of E-Cig and/or Vaping dev: No Substance use?: No Alcohol Use?: No Pt feels they are or have been: No Immunizations Up To Date Date of Influenza Vaccine: Apr 09, 2022 First/Initial COVID19 Vaccinat: 07/16/20 Second COVID19 Vaccination Bryce: 08/05/20 Tetanus Booster (TDap): Unknown Hepatitis A: No Hepatitis B: No Date of Pneumonia Vaccine: Mar 20, 2013 Seasonal Allergies Seasonal Allergies: No Current Status Advance Directives: No Communicates: Verbally Primary Language: Tunisian Preferred Spoken Language: Tunisian Is interpretation needed?: No Implanted or Applied Medical D: None Past Medical History Surgeries: Cardiac, Dialysis, Orthopedic, Renal, Vascular Surgery Asthma, Pneumonia Currently Using CPAP: No (PT STATES HE IS SUPPOSED TO BUT HE DOES NOT.) Currently Using BIPAP: No Atrial Fibrillation, Cardiomyopathy, Coronary Artery Disease, High Cholesterol, Hypertension, Peripheral Vascular, Valvular Heart Disease Neuropathy Sexually Transmitted Disease: No HIV/AIDS: No Kidney Stones, Renal Failure Colitis, Gastroesophageal Reflux, Diverticulosis, Polyps, Hiatal Hernia Arthritis, Fibromyalgia, Rheumatoid Arthritis, Chronic Back Pain Diabetes, Insulin dep Glaucoma Loss of Vision: Bilateral Hearing Impairment: Denies Sleep Difficulties, Bipolar, Depression Blood Disorders: Yes (ANEMIA, BLOOD CLOTS ) Past Medical History 1. Diabetes Mellitus 2. Hypertension 3. Seizure Disorder- history of grand mal per pt. report (no records of neurology evaluation) 4. Bi-polar Disorder 5. Depression 6. Anxiety 7. Peripheral Neuropathy 8. History of Acute Renal Failure requiring hemodialysis 2003. 9. History of superficial RUE venous thrombus due to central line placement 10. History of chronic joint pain. 11. Chronic Peripheral Edema 12. Tobaccoism 13. 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 14. Diastolic dysfunction due to uncontrolled hypertension 15. Mild coronary artery disease per cath 16. Hyperlipidemia 17. Non-compliance with follow up and medication use 18. Hx ischemic Right Frontoparietal Infarct in the Right MCA distribution 06/2015 19. Hx of second right MCA stroke in 11/2015 20. Paroxysmal atrial fibrillation Family Medical History Cardiovascular disease 19 MOTHER G8 BROTHER Colon cancer 19 MOTHER Completed stroke 19 FATHER Dementia 19 FATHER Diabetes mellitus 19 MOTHER FHx: macular degeneration 19 FATHER Myocardial infarction 19 MOTHER Heart Disease, Diabetes, Hypertension Review of Systems Constitutional: No chills, No fever EENTM: No nose congestion, No throat pain Respiratory: No cough; short of breath Cardiovascular: No chest pain (resolved); edema (ankles) Gastrointestinal: No abdominal pain, No nausea, No vomiting Genitourinary: No dysuria, No hematuria Musculoskeletal: joint pain (chronic) Skin: No change in color, No rash Psychiatric/Neurological: Denies Headache, Denies Weakness All Other Systems Reviewed Negative Unless Noted: Yes (Negative excepted noted.) Physical Exam Physical Exam Vital Signs Vital Signs - First Documented 11/30/22 11/30/22 12/01/22 21:42 22:35 00:09 Temp 36.0 Pulse 52 Resp 13 B/P (MAP) 204/107 (139) Pulse Ox 95 O2 Delivery Nasal Cannula O2 Flow Rate 2.00 FiO2 60 Capillary Refill : Less Than 3 Seconds Height, Weight, BMI Height: 6'2" Weight: 250lbs. 0.0oz. [id number]; 46.09 BMI Method:Estimated General Appearance: No Apparent Distress, WD/WN HEENT: PERRL/EOMI, Moist Mucous Membranes Neck: Non Tender, Supple Respiratory: Chest Non Tender, Normal Breath Sounds, No Accessory Muscle Use, No Respiratory Distress, Crackles Cardiovascular: No Murmur, Normal Peripheral Pulses, Irregularly Irregular Gastrointestinal: Non Tender, Soft Extremity: Pedal Edema Neurologic/Psychiatric: Alert, Oriented x3 Skin: Normal Color, Warm/Dry Results Results/Procedures Labs Laboratory Tests 11/30/22 21:50 12/01/22 05:25 Patient resulted labs reviewed. Imaging: Reviewed Imaging Films, Reviewed Imaging Report Assessment/Plan Admission Diagnosis Acute on chronic respiratory failure with hypoxia Acute on chronic HFpEF Hyperkalemia Admission Status: Inpatient Order (span 2 midnights) Reason for Inpatient Admission: Acute on chronic respiratory failure with hypoxia Acute on chronic HFpEF Hyperkalemia Assessment and Plan Acute on chronic respiratory failure Acute on chronic HFpEF Currently on Vapotherm, continue to wean as tolerated goal O2 sats 88-92% CXR with pulmonary edema, stop antibiotics as no infection likely Lasix 40mg BID Chest pain Atrial flutter Hx Afib CAD, HTN EKG with rate controlled atrial flutter Cardiology following, planning JULIO Hyperkalemia Lasix CKD Continue to monitor kidney function, seems near baseline DM, peripheral neuropathy, bipolar, HLD Continue home meds as able DVT prophylaxis: Lovenox Clinical Quality Measures AMI/AHF: ASA po Prior to arrival: No GUALBERTO ROJAS MD 12/01/22 1527: History of Present Illness Source: patient Exam Limitations: no limitations Time Seen by a Provider: 10:00 Past Ergnayc-Uljgie-Oehesy Hx Past Medical History Cardiomyopathy Family Medical History Cardiovascular disease 19 MOTHER G8 BROTHER Colon cancer 19 MOTHER Completed stroke 19 FATHER Dementia 19 FATHER Diabetes mellitus 19 MOTHER FHx: macular degeneration 19 FATHER Myocardial infarction 19 MOTHER Assessment/Plan Admission Diagnosis Admission Status: Inpatient Order (span 2 midnights) Reason for Inpatient Admission: Respiratory failure IV diuresis Assessment and Plan Admitted with acute on chronic HFpEF. Required BiPAP initially, now on Vapotherm, may transition to nasal cannula later today. Diurese with Lasix. Card iology following. Critical Care Critically Ill Patient Diagnosis/Problems Diagnosis/Problems (1) Acute on chronic respiratory failure with hypoxemia Status: Acute (2) Acute on chronic congestive heart failure Status: Acute (3) CKD (chronic kidney disease) Status: Chronic (4) Atrial fibrillation Status: Chronic (5) Hyperkalemia Status: Acute (6) Pulmonary edema Status: Acute Qualifiers: Chronicity: acute Qualified Codes: J81.0 - Acute pulmonary edema (7) Morbid obesity Status: Chronic (8) Anemia in CKD (chronic kidney disease) Status: Chronic Qualifiers: Chronic kidney disease stage: stage 3 (moderate) Supervisory-Addendum Brief Verification & Attestation Participated in pt care: history, MDM, physical Personally performed: exam, history, MDM, supervision of care Care discussed with: Medical Student Procedures: n/a A medical student performed and documented this service in my presence. I reviewed and verified all information documented by the medical student and made modifications to such information, when appropriate. I personally performed the physical exam and medical decision making. GLORY RODRÍGUEZ December 01, 2022 13:04 GUALBERTO ROJAS MD December 01, 2022 15:27
[2022-12-01] MEDS: RT--FLUTICASONE/SALMETEROL 232-14 (AIRDUO RespiCLICK) IH SCH (19:19)
[2022-12-01] MEDS: TAMSULOSIN 0.4 MG (FLOMAX) CAP PO SCH (20:26)
[2022-12-01] MEDS: MELATONIN 3 MG TABLET PO SCH (20:26)
[2022-12-01] MEDS: NITROFURANTOIN 100 MG (MACROBID) CAPSULE PO SCH (20:26)
[2022-12-01] MEDS: doxAzosin 2 MG (CARDURA) TAB PO SCH (20:26)
[2022-12-01] MEDS: LACTOBACILLUS ACIDOPHILUS (PROBIOTIC) CAPSULE PO SCH (20:27)
[2022-12-01] MEDS: APIXABAN 5 MG (ELIQUIS) TABLET PO SCH (20:27)
[2022-12-01] MEDS: BRIMONIDINE 0.2% (ALPHAGAN) OPHTH SOLN 5 ML BTL OU SCH (20:27)
[2022-12-01] MEDS: GABAPENTIN 100 MG (NEURONTIN) CAP PO SCH (20:34)
[2022-12-01] MEDS: DIVALPROEX EXT RELEASE 250 MG (DEPAKOTE ER) TAB PO SCH (20:34)
[2022-12-01 22:29] VITALS: BP 149/74
[2022-12-02] MEDS: RT-ALBUTEROL/IPRATROPIUM 3 ML (DUONEB) VIAL INH SCH ×4 (02:53→20:59)
[2022-12-02] MEDS: NOREPINEPHRINE 8 MG/250 ML 250 ML IV SCH ×3 (03:22→19:17)
[2022-12-02] MEDS: niCARdipine IV 50 MG in NS (IVPB) 230 ML IV SCH ×2 (03:23→17:45)
[2022-12-02 04:24] LABS: BASOPHILS % (AUTO) 0 % (0-10); EOSINOPHILS % (AUTO) 0 % (0-10); HEMATOCRIT 26 % (40-54); HEMOGLOBIN 7.9 g/dL (13.3-17.7); LYMPHOCYTES # (AUTO) 0.8 10^3/uL (1.0-4.0); LYMPHOCYTES % (AUTO) 7 % (12-44); MEAN CORPUSCULAR HEMOGLOBIN 27 pg (25-34); MEAN CORPUSCULAR HGB CONC 31 g/dL (32-36); MEAN CORPUSCULAR VOLUME 89 fL (80-99); MEAN PLATELET VOLUME 12.2 fL (9.0-12.2); MONOCYTES # (AUTO) 1.4 10^3/uL (0.0-1.0); MONOCYTES % (AUTO) 12 % (0-12); NEUTROPHILS # (AUTO) 9.8 10^3/uL (1.8-7.8); NEUTROPHILS % (AUTO) 81 % (42-75); PLATELET COUNT 225 10^3/uL (130-400); WHITE BLOOD COUNT 12.1 10^3/uL (4.3-11.0)
[2022-12-02 04:46] LABS: ALBUMIN 3.3 GM/DL (3.2-4.5); POTASSIUM 4.8 MMOL/L (3.6-5.0)
[2022-12-02 04:48] LABS: CALCIUM 8.7 MG/DL (8.5-10.1)
[2022-12-02 04:49] LABS: TOTAL PROTEIN 6.5 GM/DL (6.4-8.2)
[2022-12-02 04:51] LABS: BILIRUBIN,TOTAL 0.4 MG/DL (0.1-1.0)
[2022-12-02 04:52] LABS: PHOSPHORUS 5.1 MG/DL (2.3-4.7)
[2022-12-02 04:53] LABS: CREATININE SERUM 2.01 MG/DL (0.60-1.30)
[2022-12-02 04:55] LABS: MAGNESIUM 2.1 MG/DL (1.6-2.4)
[2022-12-02 05:00] LABS: BAND NEUTROPHILS 1 %; BASOPHILS % (MANUAL) 0 %; EOSINOPHILS % (MANUAL) 0 %; HYPOCHROMASIA SLIGHT; LYMPHOCYTES % (MANUAL) 6 %; MONOCYTES % (MANUAL) 11 %; NEUTROPHILS % (MANUAL) 82 %; POLYCHROMASIA SLIGHT
[2022-12-02 05:01] LABS: ANISOCYTOSIS MODERATE; ELLIPT/OVALOCYTES SLIGHT; POIKILOCYTOSIS MODERATE; TARGET CELLS SLIGHT
[2022-12-02] MEDS: inSUlin ASPART (NovoLOG) 1 UNIT/0.01 ML (CHARGE PER UNIT) SC SCH ×5 (06:08→21:00)
[2022-12-02] MEDS: NITROGLYCERIN 2% OINT 1 GM UNIT DOSE PACKET TOP SCH ×2 (06:08→10:41)
[2022-12-02] MEDS: FUROSEMIDE 40 MG/4 ML INJ (LASIX) IVP SCH (06:08)
[2022-12-02] MEDS: VASOPRESSIN INJECTION 20 UNIT in NS (IVPB) 100 ML IV SCH ×2 (06:09→19:16)
[2022-12-02] MEDS ORDERED: LIDOCAINE 2% VISCOUS 15 ML UDC ONE (08:46)
[2022-12-02] MEDS ORDERED: NS IV 1000 ML 1,000 ML ONE (08:46)
[2022-12-02] MEDS ORDERED: proPOfol 200 MG/20 ML (DIPRIVAN) VIAL IV ONE (09:12)
[2022-12-02] MEDS ORDERED: KETAMINE 50 MG/5 ML SYRINGE ONE (09:12)
--- NOTE | 2022-12-02 09:55 | Anesthesia-General Post-Op ---
MAC Patient Condition Mental Status/LOC: Same as Preop Cardiovascular: Satisfactory Nausea/Vomiting: Absent Respiratory: Satisfactory Pain: Controlled Complications: Absent Post Op Complications Complications None Follow Up Care/Instructions Patient Instructions None needed. Anesthesiology Discharge Order Discharge Order Patient is doing well, no complaints, stable vital signs, no apparent adverse anesthesia problems. No complications reported per nursing. GISELLE PICHARDO CRNA December 02, 2022 09:55
[2022-12-02] MEDS: RT--FLUTICASONE/SALMETEROL 232-14 (AIRDUO RespiCLICK) IH SCH ×2 (10:14→20:59)
[2022-12-02] MEDS: UMECLIDINIUM BROMIDE (INCRUSE ELLIPTA) 7'S IH SCH (10:15)
--- NOTE | 2022-12-02 10:20 | Progress Note - Cardiology ---
Cardiology SOAP Progress Note Subjective: Notes improvement of shortness of breath since admission No n/v/d No cp or palp or syncope Gen weakness and malaise, chronic Objective: I&O/Vital Signs 12/01/22 12/01/22 12/01/22 12/01/22 22:29 23:00 23:26 23:29 Temp 36.0 Pulse 74 52 53 Resp 36 B/P (MAP) 142/71 (94) Pulse Ox 100 99 100 O2 Delivery High Flow N/C NIV Bilevel O2 Flow Rate 6.00 35.00 35.00 12/02/22 12/02/22 12/02/22 12/02/22 00:00 00:00 00:02 01:00 Temp 36.3 Pulse 70 61 B/P (MAP) 135/59 (84) 125/63 (83) Pulse Ox 97 98 100 O2 Delivery NIV Bilevel High Flow N/C High Flow N/C High Flow N/C O2 Flow Rate 35.00 4.00 4.00 4.00 12/02/22 12/02/22 12/02/22 12/02/22 01:00 02:00 03:00 03:22 Pulse 60 57 56 60 B/P (MAP) 134/59 (84) 132/62 (85) 149/74 Pulse Ox 100 99 O2 Delivery High Flow N/C High Flow N/C O2 Flow Rate 4.00 4.00 12/02/22 12/02/22 12/02/22 12/02/22 03:23 04:00 04:00 04:26 Temp 36.6 Pulse 54 B/P (MAP) 149/74 145/67 (93) Pulse Ox 100 100 99 O2 Delivery High Flow N/C High Flow N/C High Flow N/C O2 Flow Rate 2.00 4.00 2.00 12/02/22 12/02/22 12/02/22 12/02/22 05:00 06:00 06:09 07:00 Pulse 61 74 54 55 B/P (MAP) 120/61 (80) 139/67 (91) 145/67 Pulse Ox 100 100 O2 Delivery High Flow N/C High Flow N/C O2 Flow Rate 2.00 2.00 12/02/22 12/02/22 07:00 07:00 Temp 36.6 Pulse 44 56 B/P (MAP) 136/66 (89) Pulse Ox 100 O2 Delivery High Flow N/C O2 Flow Rate 2.00 12/01/22 23:59 Intake Total 650 ml Output Total 240 ml Balance 410 ml Weight (Pounds): 250 Weight (Ounces): 0.0 Weight (Calculated Kilograms): 113.069843 Constitutional: AAO x 3, well-developed, well-nourished Respiratory: No accessory muscle use; chest expansion is symmetric, chest is bilaterally symmetric, other (fair, bilateral air entry that is diminished at the bases) Cardiovascular: irregularly irregular, S1 and S2, systolic murmur (soft SANTHOSH at card base) Gastrointestional: No tender; soft; No guarding, No rebound; audible bowel sounds Extremities: swelling (bilat pitting and non-pitting edema); No clubbing, No cyanosis Neurologic/Psychiatric: oriented x 3, other (moves all limbs) Skin: No rash on exposed areas, No ulcerations on exposed areas Results/Procedures: Labs Laboratory Tests 12/01/22 10:38: Glucometer 226H 12/01/22 15:54: Glucometer 235H 12/01/22 20:37: Glucometer 316H 12/02/22 04:14: White Blood Count 12.1H, Red Blood Count 2.89L, Hemoglobin 7.9L, Hematocrit 26L, Mean Corpuscular Volume 89, Mean Corpuscular Hemoglobin 27, Mean Corpuscular Hemoglobin Concent 31L, Red Cell Distribution Width 16.6H, Platelet Count 225, Mean Platelet Volume 12.2, Immature Granulocyte % (Auto) 1, Neutrophils (%) (Auto) 81H, Lymphocytes (%) (Auto) 7L, Monocytes (%) (Auto) 12, Eosinophils (%) (Auto) 0, Basophils (%) (Auto) 0, Neutrophils # (Auto) 9.8H, Lymphocytes # (Auto) 0.8L, Monocytes # (Auto) 1.4H, Eosinophils # (Auto) 0.0, Basophils # (Auto) 0.0, Immature Granulocyte # (Auto) 0.1, Neutrophils % (Manual) 82, Lymphocytes % (Manual) 6, Monocytes % (Manual) 11, Eosinophils % (Manual) 0, Basophils % (Manual) 0, Band Neutrophils 1, Polychromasia SLIGHT, Hypochromasia SLIGHT, Poikilocytosis MODERATE, Anisocytosis MODERATE, Target Cells SLIGHT, Elliptocytes SLIGHT, Sodium Level 140, Potassium Level 4.8, Chloride Level 106, Carbon Dioxide Level 23, Anion Gap 11, Blood Urea Nitrogen 37H, Creatinine 2.01H , Estimat Glomerular Filtration Rate 38, BUN/Creatinine Ratio 18, Glucose Level 225H, Calcium Level 8.7, Corrected Calcium 9.3, Phosphorus Level 5.1H, Magnesium Level 2.1, Total Bilirubin 0.4, Aspartate Amino Transf (AST/SGOT) 10, Alanine Aminotransferase (ALT/SGPT) 11, Alkaline Phosphatase 42, Total Protein 6.5, Al bumin 3.3 Microbiology 12/01/22 MRSA Screen - Final, Complete MRSA not isolated Laboratory Tests 11/30/22 21:50 12/01/22 05:25 12/02/22 04:14 A/P: Assessment: Acute on chronic respiratory failure, likely multifactorial (see below) - obesity-hypoventilation - HFpEF. TTE by Dr Kurtz 02-07-22: normal LV size and function ejection fraction 60%, difficult study due to patient body habitus. JULIO on 12-02-22: LVEF 50-55%, no intracardiac thrombus, no intracardiac shunt visualized - A Flutter/Fib (loss of atrial augmentation to cardiac output) - severe anemia of undetermined etiology, managed by Dr Jeter Chronic A fib/flutter - maintained on Eliquis as outpatient. - unsuccessful electrical cardioversion on 12/02/22 after JULIO (150, 200, 200 joule shocks) Hyperkalemia at presentation, resolved Coronary artery disease - cardiac catheterization was carried out in [place] [address] Dolan showing mild coronary artery disease with normal LV function. Hypertension and hypertensive heart disease CKD 3b History of right foot osteomyelitis. - Ultrasound was done on February 04, 2022 suggestive marked velocity elevation in the mid SFA, suggestive of severe stenosis. - Peripheral angiogram was done on February 06, 2022 showing mild peripheral arteria l disease nonobstructive disease. - R great toe amputation by Dr. De on February 09, 2022 Diabetes mellitus II - followed and managed by primary care physician Hx of CVA in 2015 History of seizure disorder. History of peripheral neuropathy History of right upper extremity venous thrombosis after central line placement Bipolar disorder Fibromyalgia Hyperlipidemia - intolerance to statin Plan: * Continue diuretic as needed and as tolerated * Treat hypoventilation, [facility] managing * Treat anemia, [facility] managing * Renal insuff being managed by the Hosp [facility] * We attempted elec CV of his a fib/fl -> unsuccessful * Continue stroke prophylaxis with apixaban * Monitor labs Clinical Quality Measures AMI/AHF: ASA po Prior to arrival: FRANK Natarajan MD FACP FAC CCDS December 02, 2022 10:20
[2022-12-02 10:21] VITALS: BP 138/89
[2022-12-02] MEDS: ASPIRIN E.C. 81 MG (ECOTRIN) TAB PO SCH (10:41)
[2022-12-02] MEDS: BRIMONIDINE 0.2% (ALPHAGAN) OPHTH SOLN 5 ML BTL OU SCH ×3 (10:41→20:24)
[2022-12-02] MEDS: DULoxetine 30 MG (CYMBALTA) CAP PO SCH (10:42)
[2022-12-02] MEDS: LORATADINE (CLARITIN) 10 MG TAB PO SCH (10:42)
[2022-12-02] MEDS: NITROFURANTOIN 100 MG (MACROBID) CAPSULE PO SCH ×2 (10:42→20:23)
[2022-12-02] MEDS: LACTOBACILLUS ACIDOPHILUS (PROBIOTIC) CAPSULE PO SCH ×2 (10:42→20:23)
[2022-12-02] MEDS: amLODIPine 10 MG (NORVASC) TAB PO SCH (10:42)
[2022-12-02] MEDS: APIXABAN 5 MG (ELIQUIS) TABLET PO SCH ×2 (10:43→20:24)
[2022-12-02] MEDS: DIVALPROEX 250 MG DELAYED RELEASE (DEPAKOTE) TAB PO SCH (10:46)
[2022-12-02] MEDS: GABAPENTIN 100 MG (NEURONTIN) CAP PO SCH ×3 (10:59→20:25)
--- NOTE | 2022-12-02 13:47 | Progress Note - Hospitalist ---
[facility] 12/02/22 1347: Subjective HPI/CC On Admission Elie Josue is a 57y M with PMH CAD, HTN, afib, HLD, DM and COPD on continuous 2L oxygen. He presented to the [facility] from [facility] with CP and SOB for 1 day. Describes CP as pressure in middle of chest that radiated to back, improved with receiving NTG in ER. SOB occured while lying down in bed and reports feeling like he could not catch his breath. He was wearing his continuous O2 and tried to turn it up but it did not help. Notes he has not had any recent illnesses. He has had increased swelling in his ankles bilaterally recently. Patient quit smoking 6-8 weeks ago after being diagnosed with COPD. Subjective/Events-last exam Today patient denies CP and breathing is close to baseline. He underwent cardioversion this morning. Review of Systems Pulmonary: No Dyspnea, No Cough Cardiovascular: No: Chest Pain, Palpitations Gastrointestinal: No: Nausea, Vomiting, Abdominal Pain Focused Exam Lactate Level 12/01/22 08:09: Lactic Acid Level 0.84 Objective Exam Vital Signs Vital Signs Date Time Temp Pulse Resp B/P (MAP) Pulse Ox O2 Delivery O2 Flow Rate FiO2 12/02/22 12:00 100 High Flow N/C 2.00 12/02/22 11:00 50 148/68 (94) 12/02/22 10:21 18 12/02/22 07:00 36.6 12/01/22 20:00 40 Capillary Refill : Less Than 3 Seconds General Appearance: No Apparent Distress, WD/WN HEENT: PERRL/EOMI, Moist Mucous Membranes Respiratory: Chest Non Tender, Normal Breath Sounds, No Accessory Muscle Use, No Respiratory Distress, Crackles Cardiovascular: Normal Peripheral Pulses, Irregularly Irregular Gastrointestinal: Normal Bowel Sounds, Non Tender, Soft Extremity: Swelling Neurologic/Psychiatric: Alert, Oriented x3 Results/Procedures Lab Laboratory Tests 12/02/22 04:14 Patient resulted labs reviewed. Imaging: Reviewed Imaging Films, Reviewed Imaging Report Assessment/Plan Assessment and Plan Assess & Plan/Chief Complaint Acute on chronic respiratory failure Acute on chronic HFpEF Oxygen requirements near baseline CXR with pulmonary edema, stop antibiotics as no infection likely Lasix as tolerated Chest pain Atrial flutter Hx Afib CAD, HTN EKG with rate controlled atrial flutter Cardiology following, cardioversion failed today Hyperkalemia-resolved CKD Continue to monitor kidney function, seems near baseline Anemia Iron studies, fecal occult ordered DM, peripheral neuropathy, bipolar, HLD Continue home meds as able Discharge back to [facility] pending cardiology Clinical Quality Measures AMI/AHF: ASA po Prior to arrival: No GUALBERTO RJOAS MD 12/02/222031: Subjective HPI/CC On Admission Date Seen by Provider: December 02, 2022 Time Seen by Provider: 09:45 Assessment/Plan Assessment and Plan Assess & Plan/Chief Complaint Admitted with CHF. Responded well to diuretics and BiPAP. Oxygen requirement at baseline. Cardioversion unsuccessful for atrial flutter. Anemia worsening from baseline, history of GI bleeding, anemia workup initiated. Diagnosis/Problems Diagnosis/Problems (1) Acute on chronic respiratory failure with hypoxemia Status: Acute (2) Acute on chronic congestive heart failure Status: Acute (3) Pulmonary edema Status: Acute Qualifiers: Qualified Codes: J81.0 - Acute pulmonary edema (4) Morbid obesity Status: Chronic (5) Atrial fibrillation Status: Chronic (6) CKD (chronic kidney disease) Status: Chronic (7) Anemia in CKD (chronic kidney disease) Status: Chronic Qualifiers: Supervisory-Addendum Brief Verification & Attestation Participated in pt care: history, MDM, physical Personally performed: exam, history, MDM, supervision of care Care discussed with: Medical Student Procedures: n/a A medical student performed and documented this service in my presence. I reviewed and verified all information documented by the medical student and made modifications to such information, when appropriate. I personally performed the physical exam and medical decision making. GLORY RODRÍGUEZ December 02, 2022 13:47 GUALBERTO ROJAS MD December 02, 2022 20:32
[2022-12-02] MEDS: doxAzosin 2 MG (CARDURA) TAB PO SCH (20:23)
[2022-12-02] MEDS: DIVALPROEX EXT RELEASE 250 MG (DEPAKOTE ER) TAB PO SCH (20:23)
[2022-12-02] MEDS: MELATONIN 3 MG TABLET PO SCH (20:24)
[2022-12-02] MEDS: TAMSULOSIN 0.4 MG (FLOMAX) CAP PO SCH (20:24)
[2022-12-03] MEDS: niCARdipine IV 50 MG in NS (IVPB) 230 ML IV SCH (00:19)
[2022-12-03] MEDS: NITROGLYCERIN 2% OINT 1 GM UNIT DOSE PACKET TOP SCH ×6 (00:19→23:18)
[2022-12-03] MEDS: NOREPINEPHRINE 8 MG/250 ML 250 ML IV SCH (01:50)
[2022-12-03] MEDS: RT-ALBUTEROL/IPRATROPIUM 3 ML (DUONEB) VIAL INH SCH ×4 (02:51→20:07)
[2022-12-03] MEDS: VASOPRESSIN INJECTION 20 UNIT in NS (IVPB) 100 ML IV SCH (04:31)
[2022-12-03 05:05] LABS: BASOPHILS # (AUTO) 0.1 10^3/uL (0.0-0.1); BASOPHILS % (AUTO) 1 % (0-10); EOSINOPHILS # (AUTO) 0.1 10^3/uL (0.0-0.3); EOSINOPHILS % (AUTO) 2 % (0-10); HEMATOCRIT 26 % (40-54); HEMOGLOBIN 7.7 g/dL (13.3-17.7); LYMPHOCYTES # (AUTO) 1.3 10^3/uL (1.0-4.0); LYMPHOCYTES % (AUTO) 17 % (12-44); MEAN CORPUSCULAR HEMOGLOBIN 27 pg (25-34); MEAN CORPUSCULAR HGB CONC 30 g/dL (32-36); MEAN CORPUSCULAR VOLUME 90 fL (80-99); MEAN PLATELET VOLUME 12.5 fL (9.0-12.2); MONOCYTES # (AUTO) 0.8 10^3/uL (0.0-1.0); MONOCYTES % (AUTO) 10 % (0-12); NEUTROPHILS # (AUTO) 5.6 10^3/uL (1.8-7.8); NEUTROPHILS % (AUTO) 71 % (42-75); PLATELET COUNT 218 10^3/uL (130-400); WHITE BLOOD COUNT 7.9 10^3/uL (4.3-11.0)
[2022-12-03 05:08] LABS: ALBUMIN 3.4 GM/DL (3.2-4.5); POTASSIUM 4.7 MMOL/L (3.6-5.0)
[2022-12-03 05:09] LABS: CALCIUM 8.8 MG/DL (8.5-10.1)
[2022-12-03 05:11] LABS: TOTAL PROTEIN 6.5 GM/DL (6.4-8.2)
[2022-12-03 05:12] LABS: BILIRUBIN,TOTAL 0.4 MG/DL (0.1-1.0)
[2022-12-03 05:14] LABS: CREATININE SERUM 1.7 MG/DL (0.60-1.30); PHOSPHORUS 4.5 MG/DL (2.3-4.7)
[2022-12-03 05:17] LABS: MAGNESIUM 2.2 MG/DL (1.6-2.4)
[2022-12-03] MEDS: inSUlin ASPART (NovoLOG) 1 UNIT/0.01 ML (CHARGE PER UNIT) SC SCH ×4 (05:35→20:58)
[2022-12-03] MEDS: FUROSEMIDE 40 MG (LASIX) TAB PO SCH ×2 (06:03→17:20)
[2022-12-03] MEDS: DIVALPROEX 250 MG DELAYED RELEASE (DEPAKOTE) TAB PO SCH ×3 (08:00→12:10)
[2022-12-03] MEDS ORDERED: FERROUS SULF 325 MG (IRON) TAB PO ONE (08:30)
[2022-12-03] MEDS: ASPIRIN E.C. 81 MG (ECOTRIN) TAB PO SCH (09:10)
[2022-12-03] MEDS: APIXABAN 5 MG (ELIQUIS) TABLET PO SCH ×2 (09:10→20:55)
[2022-12-03] MEDS: DULoxetine 30 MG (CYMBALTA) CAP PO SCH (09:10)
[2022-12-03] MEDS: BRIMONIDINE 0.2% (ALPHAGAN) OPHTH SOLN 5 ML BTL OU SCH ×3 (09:10→21:06)
[2022-12-03] MEDS: LACTOBACILLUS ACIDOPHILUS (PROBIOTIC) CAPSULE PO SCH ×2 (09:10→20:55)
[2022-12-03] MEDS: amLODIPine 10 MG (NORVASC) TAB PO SCH (09:10)
[2022-12-03] MEDS: LORATADINE (CLARITIN) 10 MG TAB PO SCH (09:10)
[2022-12-03] MEDS: NITROFURANTOIN 100 MG (MACROBID) CAPSULE PO SCH ×2 (09:10→20:55)
[2022-12-03] MEDS: GABAPENTIN 100 MG (NEURONTIN) CAP PO SCH ×3 (09:13→21:00)
[2022-12-03] MEDS: RT--FLUTICASONE/SALMETEROL 232-14 (AIRDUO RespiCLICK) IH SCH ×2 (10:06→22:53)
[2022-12-03] MEDS: UMECLIDINIUM BROMIDE (INCRUSE ELLIPTA) 7'S IH SCH (10:06)
[2022-12-03 11:41] VITALS: BP 190/82
[2022-12-03 11:59] VITALS: BP 182/70
--- NOTE | 2022-12-03 14:15 | Cardiology Progress Note ---
Cardiology SOAP Progress Note Subjective: No cardiac complaints. Objective: I&O/Vital Signs 12/03/22 12/03/22 12/03/22 12/03/22 02:51 03:00 04:00 04:00 Pulse 52 53 B/P (MAP) 147/69 (95) 150/80 (103) Pulse Ox 100 100 99 98 O2 Delivery High Flow N/C High Flow N/C High Flow N/C High Flow N/C O2 Flow Rate 2.00 2.00 2.00 2.00 12/03/22 12/03/22 12/03/22 12/03/22 04:31 05:00 06:00 07:00 Pulse 60 57 50 68 B/P (MAP) 165/73 162/105 (124) 165/86 (112) Pulse Ox 100 99 O2 Delivery High Flow N/C High Flow N/C O2 Flow Rate 2.00 2.00 12/03/22 12/03/22 12/03/22 12/03/22 07:00 08:00 08:00 08:00 Temp 36.3 Pulse 61 67 B/P (MAP) 180/98 (108) 184/97 (124) Pulse Ox 98 99 98 O2 Delivery High Flow N/C High Flow N/C High Flow N/C O2 Flow Rate 2.00 2.00 2.00 12/03/22 12/03/22 12/03/22 12/03/22 09:00 10:06 10:11 10:11 Pulse 64 B/P (MAP) 159/81 (116) Pulse Ox 93 98 O2 Delivery High Flow N/C High Flow N/C High Flow N/C High Flow N/C O2 Flow Rate 2.00 3.00 3.00 3.00 12/03/22 12/03/22 12/03/22 12/03/22 10:25 10:45 11:41 11:59 Temp 36.4 36.6 Pulse 70 55 66 Resp 18 18 B/P (MAP) 175/80 (111) 190/82 (118) 182/70 (107) Pulse Ox 94 97 97 O2 Delivery High Flow N/C Nasal Cannula Nasal Cannula O2 Flow Rate 2.00 2.00 4.00 12/03/22 12:34 Pulse 73 12/03/22 00:00 Intake Total 1980 ml Output Total 1100 ml Balance 880 ml Weight (Pounds): 250 Weight (Ounces): 0.0 Weight (Calculated Kilograms): 113.207266 Constitutional: AAO x 3, well-developed, well-nourished Respiratory: No accessory muscle use; chest expansion is symmetric, chest is bilaterally symmetric, other (fair, bilateral air entry that is diminished at the bases) Cardiovascular: irregularly irregular, S1 and S2, systolic murmur (soft SANTHOSH at card base) Gastrointestional: No tender; soft; No guarding, No rebound; audible bowel sounds Extremities: swelling (bilat pitting and non-pitting edema); No clubbing, No cyanosis Neurologic/Psychiatric: oriented x 3, other (moves all limbs) Skin: No rash on exposed areas, No ulcerations on exposed areas Results/Procedures: Labs Laboratory Tests 12/02/22 16:17: Glucometer 265H 12/02/22 20:20: Glucometer 243H 12/03/22 04:48: White Blood Count 7.9, Red Blood Count 2.88L, Hemoglobin 7.7L, Hematocrit 26L, Mean Corpuscular Volume 90, Mean Corpuscular Hemoglobin 27, Mean Corpuscular Hemoglobin Concent 30L, Red Cell Distribution Width 16.6H, Platelet Count 218, Mean Platelet Volume 12.5H, Immature Granulocyte % (Auto) 0, Neutrophils (%) (Auto) 71, Lymphocytes (%) (Auto) 17, Monocytes (%) (Auto) 10, Eosinophils (%) (Auto) 2, Basophils (%) (Auto) 1, Neutrophils # (Auto) 5.6, Lymphocytes # (Auto) 1.3, Monocytes # (Auto) 0.8, Eosinophils # (Auto) 0.1, Basophils # (Auto) 0.1, Immature Granulocyte # (Auto) 0.0, Sodium Level 142, Potassium Level 4.7, Chl oride Level 108H, Carbon Dioxide Level 24, Anion Gap 10, Blood Urea Nitrogen 35H , Creatinine 1.70H, Estimat Glomerular Filtration Rate 46, BUN/Creatinine Ratio 21, Glucose Level 196H, Calcium Level 8.8, Corrected Calcium 9.3, Phosphorus Level 4.5, Magnesium Level 2.2, Total Bilirubin 0.4, Aspartate Amino Transf (AST/SGOT) 9, Alanine Aminotransferase (ALT/SGPT) 11, Alkaline Phosphatase 46, Total Protein 6.5, Albumin 3.4 12/03/22 11:00: Glucometer 166H Microbiology 12/01/22 Blood Culture - Preliminary, Resulted Gram Positive Cocci 12/01/22 MRSA Screen - Final, Complete MRSA not isolated A/P: Assessment/Dx: Acute on chronic respiratory failure, likely multifactorial (see below) - obesity-hypoventilation - HFpEF. TTE by Dr Kurtz 02-07-22: normal LV size and function ejection fraction 60%, difficult study due to patient body habitus. JULIO on 12-02-22: LVEF 50-55%, no intracardiac thrombus, no intracardiac shunt visualized - A Flutter/Fib (loss of atrial augmentation to cardiac output) - severe anemia of undetermined etiology, managed by Dr Jeter Chronic A fib/flutter - maintained on Eliquis as outpatient. - unsuccessful electrical cardioversion on 12/02/22 after JULIO (150, 200, 200 joule shocks) Hyperkalemia at presentation, resolved Coronary artery disease - cardiac catheterization was carried out in September [address] Dolan showing mild coronary artery disease with normal LV function. Hypertension and hypertensive heart disease CKD 3b History of right foot osteomyelitis. - Ultrasound was done on February 04, 2022 suggestive marked velocity elevation in the mid SFA, suggestive of severe stenosis. - Peripheral angiogram was done on February 06, 2022 showing mild peripheral arterial disease nonobstructive disease. - R great toe amputation by Dr. De on February 09, 2022 Diabetes mellitus II - followed and managed by primary care physician Hx of CVA in 2014 History of seizure disorder. History of peripheral neuropathy History of right upper extremity venous thrombosis after central line placement Bipolar disorder Fibromyalgia Hyperlipidemia - intolerance to statin Plan: * Continue diuretic as needed and as tolerated * Treat hypoventilation, [facility] managing * Treat anemia, [facility] managing * Renal insuff being managed by the [facility] * We attempted elec CV of his a fib/fl -> unsuccessful on 12/02/[address] Dolan * Continue stroke prophylaxis with apixaban * Monitor labs Thank you for your consultation. Please call me if you have any questions. Reed Ozuna MD, FACP, FACC, FSCAI, FHRS, CCDS Interventional Cardiology Cardiac Electrophysiology Vascular Medicine and Endovascular Interventions Focused Exam Lactate Level 12/01/22 08:09: Lactic Acid Level 0.84 Clinical Quality Measures AMI/AHF: ASA po Prior to arrival: Deonte Jones MD December 03, 2022 14:15
[2022-12-03 14:34] VITALS: BP 156/72
[2022-12-03] MEDS: lisINopril 20 MG (PRINIVIL) TABLET PO SCH (15:38)
[2022-12-03 15:45] VITALS: BP 143/77
[2022-12-03] MEDS: FERROUS SULF 325 MG (IRON) TAB PO SCH (17:20)
[2022-12-03 20:03] VITALS: BP 140/65
[2022-12-03] MEDS: DIVALPROEX EXT RELEASE 250 MG (DEPAKOTE ER) TAB PO SCH (20:55)
[2022-12-03] MEDS: doxAzosin 2 MG (CARDURA) TAB PO SCH (20:55)
[2022-12-03] MEDS: MELATONIN 3 MG TABLET PO SCH (20:55)
[2022-12-03] MEDS: TAMSULOSIN 0.4 MG (FLOMAX) CAP PO SCH (20:55)
--- NOTE | 2022-12-03 21:53 | Progress Note - Hospitalist ---
Subjective HPI/CC On Admission Date Seen by Provider: December 03, 2022 Time Seen by Provider: 09:40 Elie Josue is a 57y M with PMH CAD, HTN, afib, HLD, DM and COPD on continuous 2L oxygen. [facility] 1 day. Describes CP as pressure in middle of chest that radiated to back, improved with receiving NTG in ER. SOB occured while lying down in bed and reports feeling like he could not catch his breath. He was wearing his continuous O2 and tried to turn it up but it did not help. Notes he has not had any recent illnesses. He has had increased swelling in his ankles bilaterally recently. Patient quit smoking 6-8 weeks ago after being diagnosed with COPD. Subjective/Events-last exam He is feeling well. He has no complaints. Focused Exam Lactate Level 12/01/22 08:09: Lactic Acid Level 0.84 Objective Exam Vital Signs Vital Signs Date Time Temp Pulse Resp B/P (MAP) Pulse Ox O2 Delivery O2 Flow Rate FiO2 12/03/22 20:07 94 High Flow N/C 2.00 12/03/22 20:03 36.8 62 17 140/65 (90) 12/01/22 20:00 40 Capillary Refill : Less Than 3 Seconds General Appearance: No Apparent Distress, Obese Respiratory: Lungs Clear, No Respiratory Distress Cardiovascular: Regular Rate, Rhythm, No Murmur Gastrointestinal: Normal Bowel Sounds, Soft Extremity: Normal Inspection, Pedal Edema Neurologic/Psychiatric: Alert, Normal Mood/Affect Skin: Normal Color, Warm/Dry Results/Procedures Lab Laboratory Tests 12/03/22 04:48 Patient resulted labs reviewed. Imaging: Reviewed Imaging Films, Reviewed Imaging Report Assessment/Plan Assessment and Plan Assess & Plan/Chief Complaint Acute on chronic respiratory failure with hypoxia Acute on chronic HFpEF Atrial flutter CAD HTN Oxygen requirement at baseling s/p unsuccessful cardioversion Cardiology following Lasix Continue home meds CKD Continue to monitor kidney function, at baseline Anemia of chronic disease Iron deficiency anemia No evidence of active bleeding Begin iron replacement Occult blood pending Needs follow up outpatient colonoscopy T2DM Neuropathy Bipolar disorder HLD Continue home meds as able Dispo: Likely discharge back to [facility] Monday, SW discussed with facility, they would like to brain picker Monday morning Chest pain, resolved Hyperkalemia, resolved Diagnosis/Problems Diagnosis/Problems (1) Acute on chronic respiratory failure with hypoxemia Status: Acute (2) Acute on chronic congestive heart failure Status: Acute (3) Pulmonary edema Status: Acute Qualifiers: Chronicity: acute Qualified Codes: J81.0 - Acute pulmonary edema (4) Morbid obesity Status: Chronic (5) Atrial fibrillation Status: Chronic (6) CKD (chronic kidney disease) Status: Chronic (7) Anemia in CKD (chronic kidney disease) Status: Chronic Qualifiers: Chronic kidney disease stage: stage 3 (moderate) Clinical Quality Measures AMI/AHF: ASA po Prior to arrival: GUALBERTO Mari MD December 03, 2022 21:53
[2022-12-03 23:19] VITALS: BP 137/65
[2022-12-04] VITALS (7 sets, daily range): BP systolic 144–189; BP diastolic 63–112
[2022-12-04] MEDS: RT-ALBUTEROL/IPRATROPIUM 3 ML (DUONEB) VIAL INH SCH ×4 (01:33→21:40)
[2022-12-04] MEDS: inSUlin ASPART (NovoLOG) 1 UNIT/0.01 ML (CHARGE PER UNIT) SC SCH ×4 (05:47→21:02)
[2022-12-04 06:19] LABS: BASOPHILS # (AUTO) 0.1 10^3/uL (0.0-0.1); BASOPHILS % (AUTO) 1 % (0-10); EOSINOPHILS # (AUTO) 0.3 10^3/uL (0.0-0.3); EOSINOPHILS % (AUTO) 4 % (0-10); HEMATOCRIT 26 % (40-54); HEMOGLOBIN 7.7 g/dL (13.3-17.7); LYMPHOCYTES # (AUTO) 1.2 10^3/uL (1.0-4.0); LYMPHOCYTES % (AUTO) 18 % (12-44); MEAN CORPUSCULAR HEMOGLOBIN 27 pg (25-34); MEAN CORPUSCULAR HGB CONC 30 g/dL (32-36); MEAN CORPUSCULAR VOLUME 91 fL (80-99); MONOCYTES # (AUTO) 0.9 10^3/uL (0.0-1.0); MONOCYTES % (AUTO) 13 % (0-12); NEUTROPHILS # (AUTO) 4.2 10^3/uL (1.8-7.8); NEUTROPHILS % (AUTO) 63 % (42-75); PLATELET COUNT 191 10^3/uL (130-400); WHITE BLOOD COUNT 6.6 10^3/uL (4.3-11.0)
[2022-12-04] MEDS: NITROGLYCERIN 2% OINT 1 GM UNIT DOSE PACKET TOP SCH ×4 (06:33→23:15)
[2022-12-04] MEDS: FUROSEMIDE 40 MG (LASIX) TAB PO SCH ×2 (06:33→17:35)
[2022-12-04 06:48] LABS: CALCIUM 8.6 MG/DL (8.5-10.1); CREATININE SERUM 1.67 MG/DL (0.60-1.30); MAGNESIUM 2.3 MG/DL (1.6-2.4); POTASSIUM 4.8 MMOL/L (3.6-5.0)
[2022-12-04] MEDS: UMECLIDINIUM BROMIDE (INCRUSE ELLIPTA) 7'S IH SCH (08:18)
[2022-12-04] MEDS: RT--FLUTICASONE/SALMETEROL 232-14 (AIRDUO RespiCLICK) IH SCH ×2 (08:18→21:40)
[2022-12-04] MEDS: DULoxetine 30 MG (CYMBALTA) CAP PO SCH (09:15)
[2022-12-04] MEDS: lisINopril 20 MG (PRINIVIL) TABLET PO SCH (09:16)
[2022-12-04] MEDS: LACTOBACILLUS ACIDOPHILUS (PROBIOTIC) CAPSULE PO SCH ×2 (09:16→19:50)
[2022-12-04] MEDS: amLODIPine 10 MG (NORVASC) TAB PO SCH (09:16)
[2022-12-04] MEDS: LORATADINE (CLARITIN) 10 MG TAB PO SCH (09:16)
[2022-12-04] MEDS: NITROFURANTOIN 100 MG (MACROBID) CAPSULE PO SCH ×2 (09:16→19:50)
[2022-12-04] MEDS: FERROUS SULF 325 MG (IRON) TAB PO SCH ×2 (09:16→17:35)
[2022-12-04] MEDS: APIXABAN 5 MG (ELIQUIS) TABLET PO SCH ×2 (09:16→19:50)
[2022-12-04] MEDS: ASPIRIN E.C. 81 MG (ECOTRIN) TAB PO SCH (09:16)
[2022-12-04] MEDS: BRIMONIDINE 0.2% (ALPHAGAN) OPHTH SOLN 5 ML BTL OU SCH ×3 (09:19→19:52)
[2022-12-04] MEDS: GABAPENTIN 100 MG (NEURONTIN) CAP PO SCH ×3 (09:19→19:55)
[2022-12-04] MEDS: DIVALPROEX 250 MG DELAYED RELEASE (DEPAKOTE) TAB PO SCH ×2 (09:19→11:45)
[2022-12-04] MEDS ORDERED: hydrALAZINE (APESOLINE) 20 MG/ML VIAL IV PRN (11:45)
[2022-12-04] MEDS ORDERED: lisINopril 20 MG (PRINIVIL) TABLET PO ONE (11:45)
--- NOTE | 2022-12-04 16:03 | Cardiology Progress Note ---
Cardiology SOAP Progress Note Subjective: no cardiac complaints Objective: I&O/Vital Signs 12/04/22 12/04/22 12/04/22 12/04/22 07:26 08:00 08:00 08:18 Temp 36.1 Pulse 50 71 Resp 18 B/P (MAP) 147/96 (113) Pulse Ox 99 95 94 O2 Delivery High Flow N/C High Flow N/C High Flow N/C O2 Flow Rate 2.00 2.00 2.00 12/04/22 12/04/22 12/04/22 12/04/22 08:27 08:28 08:30 11:33 Temp 36.1 36.4 Pulse 78 81 Resp 18 B/P (MAP) 189/112 (137) Pulse Ox 94 94 O2 Delivery High Flow N/C High Flow N/C High Flow N/C O2 Flow Rate 2.00 2.00 2.00 FiO2 28 12/04/22 12/04/22 12/04/22 12/04/22 12:35 13:00 14:58 15:39 Temp 36.2 Pulse 88 73 Resp 18 B/P (MAP) 146/78 (100) 149/67 (94) Pulse Ox 94 100 O2 Delivery High Flow N/C Nasal Cannula O2 Flow Rate 2.00 2.00 12/04/22 00:00 Intake Total 2360 ml Output Total 1125 ml Balance 1235 ml Weight (Pounds): 250 Weight (Ounces): 0.0 Weight (Calculated Kilograms): 113.636481 Constitutional: AAO x 3, well-developed, well-nourished Respiratory: No accessory muscle use; chest expansion is symmetric, chest is bilaterally symmetric, other (fair, bilateral air entry that is diminished at the bases) Cardiovascular: irregularly irregular, S1 and S2, systolic murmur (soft SANTHOSH at card base) Gastrointestional: No tender; soft; No guarding, No rebound; audible bowel sounds Extremities: swelling (bilat pitting and non-pitting edema); No clubbing, No cyanosis Neurologic/Psychiatric: oriented x 3, other (moves all limbs) Skin: No rash on exposed areas, No ulcerations on exposed areas Results/Procedures: Labs Laboratory Tests 12/03/22 20:41: Glucometer 221H 12/04/22 05:33: Glucometer 154H 12/04/22 05:54: White Blood Count 6.6, Red Blood Count 2.83L, Hemoglobin 7.7L, Hematocrit 26L, Mean Corpuscular Volume 91, Mean Corpuscular Hemoglobin 27, Mean Corpuscular Hemoglobin Concent 30L, Red Cell Distribution Width 16.6H, Platelet Count 191, Mean Platelet Volume 13.0H, Immature Granulocyte % (Auto) 1, Neutrophils (%) (Auto) 63, Lymphocytes (%) (Auto) 18, Monocytes (%) (Auto) 13H, Eosinophils (%) (Auto) 4, Basophils (%) (Auto) 1, Neutrophils # (Auto) 4.2, Lymphocytes # (Auto) 1.2, Monocytes # (Auto) 0.9, Eosinophils # (Auto) 0.3, Basophils # (Auto) 0.1, Immature Granulocyte # (Auto) 0.0, Sodium Level 142, Potassium Level 4.8, Chloride Level 109H, Carbon Dioxide Level 24, Anion Gap 9, Blood Urea Nitrogen 37H, Creatinine 1.67H, Estimat Glomerular Filtration Rate 47, BUN/Creatinine Ratio 22, Glucose Level 166H, Calcium Level 8.6, Magnesium Level 2.3 12/04/22 11:37: Glucometer 149H 12/04/22 15:29: Glucometer 195H Microbiology 12/01/22 Blood Culture - Preliminary, Resulted Staph, Coag Neg ([employer]) 12/01/22 MRSA Screen - Final, Complete MRSA not isolated A/P: Assessment/Dx: Acute on chronic respiratory failure, likely multifactorial (see below) - obesity-hypoventilation - HFpEF. TTE by Dr Kurtz 02-07-22: normal LV size and function ejection fraction 60%, difficult study due to patient body habitus. JULIO on 12-02-22: LVEF 50-55%, n o intracardiac thrombus, no intracardiac shunt visualized - A Flutter/Fib (loss of atrial augmentation to cardiac output) - severe anemia of undetermined etiology, managed by Dr Jeter Chronic A fib/flutter - maintained on Eliquis as outpatient. - unsuccessful electrical cardioversion on 12/02/22 after JULIO (150, 200, 200 joule shocks) Hyperkalemia at presentation, resolved Coronary artery disease - cardiac catheterization was carried out in September [address] Dolan showing mild coronary artery disease with normal LV function. Hypertension and hypertensive heart disease - lisinopril started and increased today CKD 3b History of right foot osteomyelitis. - Ultrasound was done on February 04, 2022 suggestive marked velocity elevation in the mid SFA, suggestive of severe stenosis. - Peripheral angiogram was done on February 06, 2022 showing mild peripheral arterial disease nonobstructive disease. - R great toe amputation by Dr. De on February 09, 2022 Diabetes mellitus II - followed and managed by primary care physician Hx of CVA in 2015 History of seizure disorder. History of peripheral neuropathy History of right upper extremity venous thrombosis after central line placement Bipolar disorder Fibromyalgia Hyperlipidemia - intolerance to statin Plan: * Continue diuretic as needed and as tolerated * HTN - started on lisinopril yesterday and increasing dose today * Treat anemia, [facility] managing * Renal insuff being managed by the Hosp [facility] * We attempted elec CV of his a fib/fl -> unsuccessful on 12/02/[address] Dolan * Continue stroke prophylaxis with apixaban * Monitor labs Thank you for your consultation. Please call me if you have any questions. Reed Ozuna MD, FACP, FACC, FSCAI, FHRS, CCDS Interventional Cardiology Cardiac Electrophysiology Vascular Medicine and Endovascular Interventions Clinical Quality Measures AMI/AHF: ASA po Prior to arrival: Deonte Jones MD December 04, 2022 16:03
--- NOTE | 2022-12-04 16:58 | Progress Note - Hospitalist ---
Subjective HPI/CC On Admission Date Seen by Provider: December 04, 2022 Time Seen by Provider: 12:10 Elie Josue is a 57y M with PMH CAD, HTN, afib, HLD, DM and COPD on continuous 2L oxygen. He presented to the ER from [facility] with CP and SOB for 1 day. Describes CP as pressure in middle of chest that radiated to back, improved with receiving NTG in ER. SOB occured while lying down in bed and reports feeling like he could not catch his breath. He was wearing his continuous O2 and tried to turn it up but it did not help. Notes he has not had any recent illnesses. He has had increased swelling in his ankles bilaterally recently. Patient quit smoking 6-8 weeks ago after being diagnosed with COPD. Subjective/Events-last exam He is feeling well. He is eating a pulled pork sandwich. He has no complaints. Objective Exam Vital Signs Vital Signs Date Time Temp Pulse Resp B/P (MAP) Pulse Ox O2 Delivery O2 Flow Rate FiO2 12/04/22 15:39 36.2 73 18 149/67 (94) 100 Nasal Cannula 2.00 12/04/22 08:30 28 Capillary Refill : Less Than 3 Seconds General Appearance: No Apparent Distress, Obese Respiratory: Lungs Clear, No Respiratory Distress Cardiovascular: Regular Rate, Rhythm, No Murmur Gastrointestinal: Normal Bowel Sounds, Non Tender, Soft Extremity: Non Tender, Pedal Edema Neurologic/Psychiatric: Alert, Normal Mood/Affect Skin: Normal Color, Warm/Dry Results/Procedures Lab Laboratory Tests 12/04/22 05:54 Patient resulted labs reviewed. Imaging: Reviewed Imaging Films, Reviewed Imaging Report Assessment/Plan Assessment and Plan Assess & Plan/Chief Complaint Acute on chronic respiratory failure with hypoxia Acute on chronic HFpEF Atrial flutter CAD HTN Oxygen requirement at baseling s/p unsuccessful cardioversion Cardiology following Lasix Continue home meds Increase Lisinopril CKD Continue to monitor kidney function, at baseline Anemia of chronic disease Iron deficiency anemia No evidence of active bleeding Continue iron replacement Occult blood ordered Needs follow up outpatient colonoscopy T2DM Neuropathy Bipolar disorder HLD Continue home meds as able Dispo: Likely discharge back to [facility] Monday, SW discussed with facility, 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 Chest pain, resolved Hyperkalemia, resolved Diagnosis/Problems Diagnosis/Problems (1) Acute on chronic respiratory failure with hypoxemia Status: Acute (2) Acute on chronic congestive heart failure Status: Acute (3) Pulmonary edema Status: Acute Qualifiers: Chronicity: acute Qualified Codes: J81.0 - Acute pulmonary edema (4) Morbid obesity Status: Chronic (5) Atrial fibrillation Status: Chronic (6) CKD (chronic kidney disease) Status: Chronic (7) Anemia in CKD (chronic kidney disease) Status: Chronic Qualifiers: Chronic kidney disease stage: stage 3 (moderate) (8) HTN (hypertension) Status: Acute Clinical Quality Measures AMI/AHF: ASA po Prior to arrival: GUALBERTO Mari MD December 04, 2022 16:58
[2022-12-04] MEDS: MELATONIN 3 MG TABLET PO SCH (19:49)
[2022-12-04] MEDS: DIVALPROEX EXT RELEASE 250 MG (DEPAKOTE ER) TAB PO SCH (19:50)
[2022-12-04] MEDS: TAMSULOSIN 0.4 MG (FLOMAX) CAP PO SCH (19:50)
[2022-12-04] MEDS: doxAzosin 2 MG (CARDURA) TAB PO SCH (19:51)
[2022-12-05] VITALS: BP 144/63
[2022-12-05] MEDS: RT-ALBUTEROL/IPRATROPIUM 3 ML (DUONEB) VIAL INH SCH ×2 (02:26→06:49)
[2022-12-05 03:59] VITALS: BP 138/77
[2022-12-05] MEDS: inSUlin ASPART (NovoLOG) 1 UNIT/0.01 ML (CHARGE PER UNIT) SC SCH (05:37)
[2022-12-05] MEDS: FUROSEMIDE 40 MG (LASIX) TAB PO SCH (06:23)
[2022-12-05] MEDS: NITROGLYCERIN 2% OINT 1 GM UNIT DOSE PACKET TOP SCH (06:23)
[2022-12-05 06:25] LABS: HEMOGLOBIN 8.1 g/dL (13.3-17.7)
[2022-12-05 06:27] LABS: BASOPHILS # (AUTO) 0.1 10^3/uL (0.0-0.1); BASOPHILS % (AUTO) 1 % (0-10); EOSINOPHILS # (AUTO) 0.4 10^3/uL (0.0-0.3); EOSINOPHILS % (AUTO) 6 % (0-10); HEMATOCRIT 27 % (40-54); LYMPHOCYTES # (AUTO) 1.3 10^3/uL (1.0-4.0); LYMPHOCYTES % (AUTO) 20 % (12-44); MEAN CORPUSCULAR HEMOGLOBIN 27 pg (25-34); MEAN CORPUSCULAR HGB CONC 30 g/dL (32-36); MEAN CORPUSCULAR VOLUME 90 fL (80-99); MEAN PLATELET VOLUME 12.7 fL (9.0-12.2); MONOCYTES # (AUTO) 0.8 10^3/uL (0.0-1.0); MONOCYTES % (AUTO) 12 % (0-12); NEUTROPHILS % (AUTO) 61 % (42-75); PLATELET COUNT 151 10^3/uL (130-400); WHITE BLOOD COUNT 6.6 10^3/uL (4.3-11.0)
[2022-12-05 06:37] LABS: CALCIUM 8.9 MG/DL (8.5-10.1); CREATININE SERUM 1.73 MG/DL (0.60-1.30); MAGNESIUM 2.4 MG/DL (1.6-2.4); POTASSIUM 4.7 MMOL/L (3.6-5.0)
[2022-12-05 06:40] LABS: SMEAR SCAN COMMENT YES
[2022-12-05] MEDS: RT--FLUTICASONE/SALMETEROL 232-14 (AIRDUO RespiCLICK) IH SCH (06:50)
[2022-12-05] MEDS: UMECLIDINIUM BROMIDE (INCRUSE ELLIPTA) 7'S IH SCH (06:50)
--- NOTE | 2022-12-05 07:47 | Discharge Inst-Simple/Standard ---
Discharge Inst-Standard Discharge Medications New, Converted or Re-Newed RX: Transmitted to Pharmacy Patient Instructions/Follow Up Plan of Care/Instructions/FU: Please continue to take your medications as written. Please follow up with your primary care doctor to follow up this hospital stay. Activity as Tolerated: Yes Discharge Diet: Low Sodium Diet, Cardiac Diet Return to The Hospital For: Chest pain, shortness of breath, fever, weakness, if you feel you are getting worse. ANA MCGUIRE MD December 05, 2022 07:46
[2022-12-05] MEDS ORDERED: LISI40TA9 PO (07:49)
[2022-12-05 08:03] VITALS: BP 166/72
[2022-12-05] MEDS ORDERED: LORazepam 0.5 MG (ATIVAN) TABLET ONE (08:08)
[2022-12-05] MEDS: ASPIRIN E.C. 81 MG (ECOTRIN) TAB PO SCH (08:11)
[2022-12-05] MEDS: FERROUS SULF 325 MG (IRON) TAB PO SCH (08:11)
[2022-12-05] MEDS: APIXABAN 5 MG (ELIQUIS) TABLET PO SCH (08:11)
[2022-12-05] MEDS: DULoxetine 30 MG (CYMBALTA) CAP PO SCH (08:11)
[2022-12-05] MEDS: NITROFURANTOIN 100 MG (MACROBID) CAPSULE PO SCH (08:11)
[2022-12-05] MEDS: LORATADINE (CLARITIN) 10 MG TAB PO SCH (08:11)
[2022-12-05] MEDS: amLODIPine 10 MG (NORVASC) TAB PO SCH (08:11)
[2022-12-05] MEDS: LACTOBACILLUS ACIDOPHILUS (PROBIOTIC) CAPSULE PO SCH (08:11)
[2022-12-05] MEDS: DIVALPROEX 250 MG DELAYED RELEASE (DEPAKOTE) TAB PO SCH (08:13)
[2022-12-05] MEDS: GABAPENTIN 100 MG (NEURONTIN) CAP PO SCH (08:13)
[2022-12-05] MEDS: BRIMONIDINE 0.2% (ALPHAGAN) OPHTH SOLN 5 ML BTL OU SCH (08:14)
[2022-12-05] MEDS ORDERED: LORazepam 0.5 MG (ATIVAN) TABLET PO ONE (08:15)
--- NOTE | 2022-12-05 08:15 | Discharge Summary ---
Diagnosis/Chief Complaint Date of Admission November 30, 2022 at 23:53 Date of Discharge Discharge Date: December 05, 2022 Admission Diagnosis Primary Care Stanislav Nunez MD Discharge Diagnosis (1) Acute on chronic respiratory failure with hypoxemia Status: Acute (2) Acute on chronic congestive heart failure Status: Acute (3) Pulmonary edema Status: Acute (4) Morbid obesity Status: Chronic (5) Atrial fibrillation Status: Chronic (6) CKD (chronic kidney disease) Status: Chronic (7) Anemia in CKD (chronic kidney disease) Status: Chronic (8) HTN (hypertension) Status: Acute Discharge Summary Discharge Physical Exam Allergies: Coded Allergies: penicillin V (Unverified Allergy, Unknown, 10/01/08) erythromycin base (Unverified Adverse Reaction, Mild, VOMITING, 03/18/13) Vitals & I&Os Vital Signs Date Time Temp Pulse Resp B/P (MAP) Pulse Ox O2 Delivery O2 Flow Rate FiO2 12/05/22 08:03 36.0 66 18 166/72 (103) 96 Nasal Cannula 2.00 12/04/22 08:30 28 General Appearance: No Apparent Distress, Chronically ill, Obese Respiratory: Lungs Clear Cardiovascular: Irregularly Irregular Neurologic/Psychiatric: Alert, Oriented x3 Hospital Course Patient was admitted to the hospital secondary to acute on chronic respiratory failure likely due to acute heart failure. He was treated with IV lasix and did well. He was noted to have atrial flutter and underwent unsuccessful cardioversion. His heart rate was controlled though and cardiology manage this. He was back to his baseline oxygen requirement and was doing well upon discharge. He is to follow-up with surgery as an outpatient as he already needed his yearly colonoscopy to follow-up from his previous GI bleed. He was discharged back to his senior living in stable and improved condition to follow- up with Dr. Nunez his primary care physician. Labs (last 24 hrs) Laboratory Tests 12/04/22 11:37: Glucometer 149H 12/04/22 15:29: Glucometer 195H 12/04/22 20:42: Glucometer 172H 12/05/22 05:33: Glucometer 119H 12/05/22 06:16: White Blood Count 6.6, Red Blood Count 2.99L, Hemoglobin 8.1L, Hematocrit 27L, Mean Corpuscular Volume 90, Mean Corpuscular Hemoglobin 27, Mean Corpuscular Hemoglobin Concent 30L, Red Cell Distribution Width 16.5H, Platelet Count 151, Mean Platelet Volume 12.7H, Immature Granulocyte % (Auto) 1, Neutrophils (%) (Auto) 61, Lymphocytes (%) (Auto) 20, Monocytes (%) (Auto) 12, Eosinophils (%) (Auto) 6, Basophils (%) (Auto) 1, Neutrophils # (Auto) 4.0, Lymphocytes # (Auto) 1.3, Monocytes # (Auto) 0.8, Eosinophils # (Auto) 0.4H, Basophils # (Auto) 0.1, Immature Granulocyte # (Auto) 0.0, Percent Immature Platelet Fraction 10.5H, Sodium Level 141, Potassium Level 4.7, Chloride Level 108H, Carbon Dioxide Level 25, Anion Gap 8, Blood Urea Nitrogen 38H, Creatinine 1.73H, Estimat Glomerular Filtration Rate 45, BUN/Creatinine Ratio 22, Glucose Level 123H, Calcium Level 8.9, Magnesium Level 2.4, Smear Scan YES Microbiology 12/01/22 Blood Culture - Preliminary, Resulted Staph, Coag Neg ([employer]IC) 12/01/22 MRSA Screen - Final, Complete MRSA not isolated Patient resulted labs reviewed. Pending Labs Laboratory Tests 12/05/22 05:33: Glucometer 119 12/05/22 06:16: White Blood Count 6.6, Red Blood Count 2.99, Hemoglobin 8.1, Hematocrit 27, Mean Corpuscular Volume 90, Mean Corpuscular Hemoglobin 27, Mean Corpuscular Hemoglobin Concent 30, Red Cell Distribution Width 16.5, Platelet Count 151, Mean Platelet Volume 12.7, Immature Granulocyte % (Auto) 1, Neutrophils (%) (Auto) 61, Lymphocytes (%) (Auto) 20, Monocytes (%) (Auto) 12, Eosinophils (%) (Auto) 6, Basophils (%) (Auto) 1, Neutrophils # (Auto) 4.0, Lymphocytes # (Auto) 1.3, Monocytes # (Auto) 0.8, Eosinophils # (Auto) 0.4, Basophils # (Auto) 0.1, Immature Granulocyte # (Auto) 0.0, Percent Immature Platelet Fraction 10.5, Sodium Level 141, Potassium Level 4.7, Chloride Level 108, Carbon Dioxide Level 25, Anion Gap 8, Blood Urea Nitrogen 38, Creatinine 1.73, Estimat Glomerular Filtration Rate 45, BUN/Creatinine Ratio 22, Glucose Level 123, Calcium Level 8.9, Magnesium Level 2.4, Smear Scan YES Imaging: Reviewed Imaging Films, Reviewed Imaging Report Discussion & Recommendations Discharge Planning: >30 minutes discharge planning Discharge Home Medications: Active Scripts Active Lisinopril 40 Mg Tablet 40 Mg PO DAILY Reported Divalproex Sodium ER (Divalproex Sodium) 250 Mg Tab.er.24h 500 Mg PO HS TAKES 2 (250MG) TAB Trulicity (Dulaglutide) 1.5 Mg/0.5 Ml Pen.injctr 1.5 Mg SQ MONDAY Macrobid 100 mg Capsule (Nitrofurantoin Monohyd/M-Cryst) 100 Mg Capsule 1 Cap PO BID STARTED 11-27-2022 #14/7 DAY SUPPLY Furosemide 40 Mg Tablet 40 Mg PO DAILY PRN EVERY AM FOR WEIGHT GAIN >3LBS Farxiga (Dapagliflozin Propanediol) 10 Mg Tablet 10 Mg PO DAILY Duloxetine HCl 60 Mg Capsule.dr 60 Mg PO DAILY Aspirin 81 Mg Tab.chew 81 Mg PO DAILY Furosemide 40 Mg Tablet 40 Mg PO BID Zyrtec (Cetirizine HCl) 10 Mg Capsule 10 Mg PO DAILY Calcium Carbonate 500 Mg Calcium (1250 Mg) Tablet 500 Mg PO Q8H PRN Acidophilus (Lactobacillus Acidophilus) 1 Each Tab.chew 1 Each PO BID Simethicone 125 Mg Capsule 125 Mg PO Q8H PRN Atorvastatin Calcium 80 Mg Tablet 80 Mg PO HS Lantus Solostar (Insulin Glargine,Hum.rec.anlog) 100 Unit/Ml (3 Ml) Insuln.pen 45 Unit SQ BID Gabapentin 100 Mg Capsule 200 Mg PO 0800,1200,2000 TAKES 2 (100MG) CAPS Humalog Kwikpen (Insulin Lispro) 200 Unit/Ml (3 Ml) Insuln.pen 30 Unit SQ AC Doxazosin Mesylate 2 Mg Tablet 2 Mg PO HS Tramadol HCl 50 Mg Tablet 50 Mg PO Q8HR PRN Symbicort 160-4.5 Mcg Inhaler (Budesonide/Formoterol Fumarate) 160 Mcg-4.5 Mcg/Actuation Hfa.aer.ad 2 Puff IH BID Flintstones Complete Chew Tab (Ped Multivit #43/Iron Fumarate) 18 Mg Iron Tab.ch ew 18 Mg PO DAILY Ondansetron Odt (Ondansetron) 4 Mg Tab.rapdis 4 Mg PO Q8H PRN Tylenol (Acetaminophen) 325 Mg Tablet 650 Mg PO Q6H PRN TAKES 2 (325MG) TABS Guaifenesin-Dm 100-10 mg/5 ml (Guaifenesin/Dextromethorphan) 5 Ml Liquid 10 Ml PO Q4H PRN Miralax (Polyethylene Glycol 3350) 17 Gm Powd.pack 17 Gm PO Q12H PRN Docusate Sodium 100 Mg Capsule 100 Mg PO DAILY PRN Loperamide (Loperamide HCl) 2 Mg Tablet 2 Mg PO Q1H PRN MDD 8MG Albuterol Sulfate 2.5 Mg/0.5 Ml Vial.neb 2.5 Mg INH Q8H PRN Melatonin 3 Mg Tablet 3 Mg PO HS Amlodipine Besylate 10 Mg Tablet 10 Mg PO DAILY HOLD FOR PULSE <50 AND BP <100/50 Flomax (Tamsulosin HCl) 0.4 Mg Cap 0.4 Mg PO HS Spiriva Respimat 1.25MCG/ACTUATION (Tiotropium [place]) 4 Gm Mist.inhal 2 Puff IH DAILY Alphagan P (Brimonidine Tartrate) 5 Ml Drops 1 Drop OU BID Eliquis (Apixaban) 5 Mg Tablet 5 Mg PO BID Aripiprazole 10 Mg Tablet 10 Mg PO DAILY Divalproex Sodium 250 Mg Tablet.dr 250 Mg PO 0800,1200 Instructions to patient/family Please see electronic discharge instructions given to patient. Clinical Quality Measures AMI/AHF: ASA po Prior to arrival: No Problem Qualifiers (1) Pulmonary edema: Chronicity: acute Qualified Codes: J81.0 - Acute pulmonary edema (2) Anemia in CKD (chronic kidney disease): Chronic kidney disease stage: stage 3 (moderate) ANA MCGUIRE MD December 05, 2022 08:15
[2022-12-05] MEDS ORDERED: lisINopril 40 MG (PRINIVIL) TABLET PO SCH (09:00)
== END 2022-12-05 10:37 | DRG 291 ==
LOC: EDUNIT# 21:37 → ER 21:38 → ICU 23:53 → 4TH 12-03 10:02
PROVIDERS: ADMIT Internal Medicine; ATTEND Internal Medicine
PROC: 5A09357 Assistance with Respiratory Ventilation, Less than 24 Consecutive Hours, Continuous Positive Airway Pressure (ICD-10-PCS; 2022-11-30)
PROC: 5A0935A Assistance with Respiratory Ventilation, Less than 24 Consecutive Hours, High Flow/Velocity Cannula (ICD-10-PCS; 2022-12-01)
PROC: 5A2204Z Restoration of Cardiac Rhythm, Single (ICD-10-PCS; principal; 2022-12-02)
DX: I13.0 Hypertensive heart and chronic kidney disease with heart failure and stage 1 through stage 4 chronic kidney disease, or unspecified chronic kidney disease (principal); I50.33 Acute on chronic diastolic (congestive) heart failure; J96.21 Acute and chronic respiratory failure with hypoxia; I48.92 Unspecified atrial flutter; E66.2 Morbid (severe) obesity with alveolar hypoventilation; Z68.41 Body mass index [BMI] 40.0-44.9, adult; E11.22 Type 2 diabetes mellitus with diabetic chronic kidney disease; N18.32 Chronic kidney disease, stage 3b; I48.0 Paroxysmal atrial fibrillation; Z20.822 Contact with and (suspected) exposure to COVID-19; I25.10 Atherosclerotic heart disease of native coronary artery without angina pectoris; E11.42 Type 2 diabetes mellitus with diabetic polyneuropathy; I42.9 Cardiomyopathy, unspecified; J44.9 Chronic obstructive pulmonary disease, unspecified; E78.00 Pure hypercholesterolemia, unspecified; E87.5 Hyperkalemia; G40.909 Epilepsy, unspecified, not intractable, without status epilepticus; D63.1 Anemia in chronic kidney disease; D50.9 Iron deficiency anemia, unspecified; F31.9 Bipolar disorder, unspecified; M79.7 Fibromyalgia; M06.9 Rheumatoid arthritis, unspecified; Z79.4 Long term (current) use of insulin; Z99.81 Dependence on supplemental oxygen; Z87.891 Personal history of nicotine dependence; Z86.73 Personal history of transient ischemic attack (TIA), and cerebral infarction without residual deficits
CPT/HCPCS: 36415; 36600; 71045; 80048; 80053; 80061; 82150; 82550; 82553; 82607; 82728; 82746; 82805; 82947; 83540; 83550; 83605; 83690; 83735; 83874; 83880; 84100; 84484; 85007; 85025; 85027; 85379; 85610; 85730; 87040; 87081; 87636; 93005; 93041; 93306; 93312; 93320; 93325; 94640; 94660; 94760

== ENCOUNTER 2023-02-13 09:52 | Outpatient (CLI) | payer MEDICARE, MEDICAID ==
[~2023-02-13] VITALS: Ht 182.9 cm; Wt 164.8 kg
[~2023-02-13 09:52] MED LIST changes: +DAPA10TA PO; +DULO60CA59 PO; +FURO40TA4 PO; +NITR-65 PO; -POTA10CA44 PO; +POTA10CA84 PO
== END 2023-02-13 12:48 | disposition home or self-care (01) ==
LOC: PREOP 09:52
PROVIDERS: ATTEND Surgery
DX: Z01.818 Encounter for other preprocedural examination (principal)

== ENCOUNTER 2023-02-17 11:40 | Day surgery (SDC) | payer MEDICARE, MEDICAID ==
[~2023-02-17] VITALS: Ht 182.9 cm; Wt 164.8 kg
[2023-02-17] MEDS ORDERED: LACTATED RINGERS 1,000 ML IV STA (11:43)
[2023-02-17] MEDS ORDERED: HURRICAINE EXT TUBE (BENZOCAINE) XX PRN (11:45)
[2023-02-17] MEDS ORDERED: KETAMINE 50 MG/5 ML SYRINGE ONE (12:07)
[2023-02-17] MEDS ORDERED: PROPOFOL INJECTION 50 ML IV ONE ×2 (12:07→13:19)
[2023-02-17] MEDS ORDERED: MIDAZOLAM INJ 2 MG/2 ML VIAL ONE (12:07)
[2023-02-17 12:12] VITALS: BP 153/71
--- NOTE | 2023-02-17 12:37 | Progress Note-Pre Operative ---
Pre-Operative Progress Note Date H&P Reviewed: Feb 17, 2023 Time H&P Reviewed: 12:05 History & Physical: H&P Reviewed, Patient Examed, No changes noted Pre-Operative Diagnosis: fe def anemia BIJU MACKENZIE DO Feb 17, 2023 12:37
[2023-02-17 14:05] VITALS: BP 123/60
--- NOTE | 2023-02-17 14:06 | Anesthesia-General Post-Op ---
MAC Patient Condition Mental Status/LOC: Same as Preop Cardiovascular: Satisfactory Nausea/Vomiting: Absent Respiratory: Satisfactory Pain: Controlled Complications: Absent Post Op Complications Complications None Follow Up Care/Instructions Patient Instructions None needed. Anesthesiology Discharge Order Discharge Order Patient is doing well, no complaints, stable vital signs, no apparent adverse anesthesia problems. No complications reported per nursing. CONRAD CHRISTENSEN CRNA Feb 17, 2023 14:06
--- NOTE | 2023-02-17 14:09 | Discharge Inst-Simple/Standard ---
Discharge Inst-Standard Patient Instructions/Follow Up Plan of Care/Instructions/FU: 2 weeks Kneisha Activity as Tolerated: Yes Discharge Diet: Regular Diet BIJU MACKENZIE DO Feb 17, 2023 14:09
[2023-02-17] MEDS ORDERED: PANT40TA2 PO (14:10)
[2023-02-17 14:15] VITALS: BP 163/80
[2023-02-17 14:40] VITALS: BP 163/80
[2023-02-17 14:50] VITALS: BP 163/80
--- NOTE | 2023-02-17 22:10 | OPERATIVE REPORT ---
DATE OF SERVICE: 02/17/2023 PREOPERATIVE DIAGNOSIS: Iron deficiency anemia. POSTOPERATIVE DIAGNOSES: Small hiatal hernia, small duodenal ulcers, diverticulosis and colon polyps. PROCEDURE: EGD with biopsies, colonoscopy to the ascending colon with hot biopsy polypectomy x3 and snare polypectomy x4. SURGEON: Biju De DO ANESTHESIA: Per PEANUT SHELLER. ESTIMATED BLOOD LOSS: Scant. COMPLICATIONS: None. INDICATIONS: The patient is a 58-year-old male with screening colonoscopy and EGD for further evaluation for iron deficiency anemia. He understood risks and benefits, and wished to proceed. Consent was signed and in the chart. DESCRIPTION OF PROCEDURE: The patient was taken to endoscopy suite, placed in left lateral recumbent position. Timeout was performed. Scope was inserted in the mouth, down the esophagus, stomach, into the duodenum. Second portion of duodenum had normal appearance. A portion has some small duodenal ulcers and some healing. Biopsy was obtained. Scope was slowly retracted back into stomach where it was further insufflated. Biopsy of the antrum was obtained. Scope was retroflexed noting a small hiatal hernia, no other pathology. Scope was returned to its normal position, slowly withdrawn until distal esophagus. Biopsy of the GE junction was obtained. Appearance of some slight reflux esophagitis present. Scope was slowly retracted back until completely removed noting no other pathology. Digital rectal exam was performed. No palpable polyps, masses or ulcerations. Scope was inserted in the rectum and advanced all the way to the ascending colon. The patient will be repositioned multiple times, but due to body habitus was difficult to move and was only able to safely advance the scope to the ascending colon. At this point, scope was then continuously retracted back. No polyps, masses, or ulcerations were visualized within the ascending colon [ ] portion was able to be visualized. In the transverse colon, there were 2 polyps that were large, which snare polypectomy was performed. Scope was then continuously retracted back also noting 2 small polyps, which hot biopsy polypectomy was performed. Scope was then continuously retracted back to the descending colon, another polyp was snared and then another polyp was present, which hot biopsy polypectomy was performed. Scope was then continuously retracted back in the sigmoid colon, noting [ ] polyp, which snare polypectomy was performed. Also noticed diverticulosis within the sigmoid colon. Scope was then continuously retracted back into the rectum, where it was inserted and retracted multiple times before noting any. The patient tolerated the procedure well, no complications, taken to recovery room in stable condition. RECOMMENDATIONS: Recommend CT scan with rectal contrast to evaluate the rest of the colon. We will arrange this on an outpatient. Would recommend repeat colonoscopy in one year, also to evaluate the colon polyp surveillance since [ ] [ ] polyps were larger. The patient will follow up in the office in 2 weeks for pathology and set up CT scan. Job ID: [id number] DocumentID: [id number] Dictated Date: 02/17/2023 14:15:31 Farm Manager Date: 02/17/2023 20:57:00 Dictated By: BIJU DE DO
== END 2023-02-17 14:50 | disposition home or self-care (01) ==
LOC: ENDO 11:40
PROVIDERS: ATTEND Surgery
DX: Z12.11 Encounter for screening for malignant neoplasm of colon (principal); D12.3 Benign neoplasm of transverse colon; D12.4 Benign neoplasm of descending colon; D12.5 Benign neoplasm of sigmoid colon; K29.80 Duodenitis without bleeding; K44.9 Diaphragmatic hernia without obstruction or gangrene; K20.90 Esophagitis, unspecified without bleeding; K26.9 Duodenal ulcer, unspecified as acute or chronic, without hemorrhage or perforation; K57.30 Diverticulosis of large intestine without perforation or abscess without bleeding; D50.9 Iron deficiency anemia, unspecified; E66.01 Morbid (severe) obesity due to excess calories; J44.9 Chronic obstructive pulmonary disease, unspecified; Z99.81 Dependence on supplemental oxygen; Z68.42 Body mass index [BMI] 45.0-49.9, adult; Z87.891 Personal history of nicotine dependence; Z79.01 Long term (current) use of anticoagulants
CPT/HCPCS: 82947

== ENCOUNTER 2023-03-01 10:31 | Outpatient (CLI) | payer MEDICARE, MEDICAID ==
[~2023-03-01 10:31] MED LIST changes: +PANT40TA2 PO
[2023-03-01 11:22] LABS: HEMOGLOBIN 7.6 g/dL (13.3-17.7)
[2023-03-01 12:19] VITALS: BP 127/47
[2023-03-01 12:21] VITALS: BP 151/46
[2023-03-01 12:25] VITALS: BP 115/57
[2023-03-01 14:24] VITALS: BP 147/77
[2023-03-01 14:51] VITALS: BP 157/58
[2023-03-01] MEDS: NS IV 500 ML 500 ML IV SCH ×2 (15:13→15:14)
== END 2023-03-01 15:15 ==
LOC: SDC 10:31
PROVIDERS: ATTEND Internal Medicine
DX: D64.9 Anemia, unspecified (principal)
CPT/HCPCS: 36415; 36430; 85014; 85018; 86850; 86900; 86901; 86920

== ENCOUNTER → 2023-03-22 | Outpatient (CLI) | payer MEDICARE, MEDICAID ==
[~2023-03-22] MED LIST changes: -DICL100G13 TP; +DICL100G60 TP; -GABA-490 PO; +GABA-491 PO; -MECL-149 PO; +MECL-291 PO
== END ==
LOC: RAD 07:45
PROVIDERS: ATTEND Internal Medicine
DX: Z53.9 Procedure and treatment not carried out, unspecified reason (principal)

== ENCOUNTER → 2023-04-25 | Outpatient (CLI) | payer MEDICARE, MEDICAID ==
[~2023-04-25] MED LIST changes: +DIATRIZOATE MEGLUM/SODIUM 37% 120 ML (GASTROGRAFIN) PO ONE
[2023-04-25 10:17] LABS: CREATININE SERUM 2.15 MG/DL (0.60-1.30)
--- NOTE | 2023-04-25 12:42 | Diagnostic Imaging Report ---
EXAMINATION: CT abdomen and pelvis without contrast. TECHNIQUE: Multiple contiguous axial images were obtained through the abdomen and pelvis without the use of intravenous contrast. All CT scans use one or more of the following dose optimizing techniques: Automated exposure control, MA and/or KvP adjustment based on patient size and exam type or iterative reconstruction. HISTORY: Primary Dx K50.80 Crohn's disease. COMPARISON: 05/27/2020. FINDINGS: Lung bases: Atelectasis or ground-glass opacities within the lung bases. Evaluation is somewhat limited secondary to patient respiratory motion. Solid organs: There is diffuse hypoattenuation of the liver which can be seen with hepatic steatosis. The gallbladder is normal. There is no biliary ductal dilation. Pancreas is normal. Spleen is normal. Adrenal glands are normal. The kidneys are normal without visualized calculus or hydronephrosis. Bowel: There is a small hiatal hernia present. There is no bowel obstruction. Rectal contrast is seen throughout the colon which is unremarkable. Terminal ileum has an unremarkable appearance. The appendix is normal. Peritoneum: There is no intraperitoneal free fluid or free air. No suspicious lymphadenopathy. Vasculature: Normal without aneurysm. An IVC filter is present. Musculoskeletal: Degenerative changes of the spine without suspicious osseous lesion or compression fracture. Pelvis: The prostate gland is normal. Urinary bladder is decompressed with a Ott catheter. IMPRESSION: 1. No acute abnormality in the abdomen or pelvis. 2. Findings suggestive of hepatic steatosis. Dictated by: Dictated on workstation # [id number]
== END ==
LOC: RAD 09:38
PROVIDERS: ATTEND Surgery
DX: K50.80 Crohn's disease of both small and large intestine without complications (principal)
CPT/HCPCS: 36415; 74176; 82565; 84520